=== PATIENT | male | born 1935 | race Caucasian/White ===

== ENCOUNTER 2019-05-23 11:07 | Emergency (ER) | payer OTHER ==
[~2019-05-23] VITALS: Ht 188 cm; Wt 88.5 kg
[~2019-05-23 11:07] MED LIST: ASA81 MG PO; CARDURA2 MG PO; CARVEDILOL3.125 MG PO; FAMOTIDINE20 MG PO; FLOMAX0.4 MG PO; GABAPENTIN100 MG PO; LORTAB PO; MULTI-VITAMIN1 EACH PO; OXYBUTYNIN CHLOR5 MG PO; TAMSULOSIN HCL0.4 MG PO; VITAMIN B-121000 MC3 PO; Z PACERONE PO; Z SULFASALAZINE PO; Z.0.CARDURA8 MG PO; Z.0.FOLIC ACID1 MG PO; Z.0.LIPITOR20 MG PO; Z.0.LISINOPRIL20 MG PO; Z.0.PLAVIX75 MG PO; Z.0.SYNTHROID100 MCG PO; [UNRECOGNIZED DRUG - OTHER] PO
[2019-05-23] MEDS ORDERED: MORPHINE SULFATE 2 MG/ML SYR 1ML IV STA (11:12)
[2019-05-23] MEDS ORDERED: ONDANSETRON HCL INJ 2MG/ML 2ML 2 MG/ML VIAL IV STA (11:12)
[2019-05-23 11:35] LABS: BASOPHILS % 0.1 % (0.0-1.0); EOSINOPHILS # (AUTO) 0.1 (0.0-0.4); EOSINOPHILS % 0.8 % (0.0-6.0); HEMATOCRIT 46.3 % (38.2-49.6); HEMOGLOBIN 14.1 g/dL (14.0-18.0); LYMPHOCYTES % 12.2 % (18.0-39.1); MEAN CORPUSCULAR HEMOGLOBIN 28.5 pg (28-32); MEAN CORPUSCULAR HGB CONC 30.5 g/dL (31-35); MEAN CORPUSCULAR VOLUME 93.7 fL (81-99); MONOCYTES % 11.3 % (4.4-11.3); NEUTROPHILS # (AUTO) 6.3 (2.1-6.9); NEUTROPHILS % 75.4 % (38.7-80.0); PLATELET COUNT 155 x10e3/uL (140-360); RED BLOOD COUNT 4.94 x10e6/uL (4.3-5.7); RED CELL DISTRIBUTION WIDTH 19.9 % (11.7-14.4)
--- NOTE | 2019-05-23 12:29 | Diagnostic Imaging Report ---
EXAM: WRIST COMPLETE LEFT DATE: 05/23/2019 11:12 AM INDICATION: Fall COMPARISON: None IMPRESSION: Bony mineralization is diffusely decreased limiting evaluation. No obvious acute fracture or dislocation is appreciated. There are prominent calcifications within the radiocarpal and ulnocarpal joint. No radiopaque foreign body is appreciated. Signed by: Dr. Justen Rendon MD on 05/23/2019 12:26 PM
[2019-05-23 13:23] LABS: ALANINE AMINOTRANSFERASE 15 IU/L (0-55); ALBUMIN 2.8 g/dL (3.5-5.0); ALBUMIN/GLOBULIN RATIO 0.8 (0.8-2.0); ALKALINE PHOSPHATASE 135 IU/L (40-150); ANION GAP 14.6 mmol/L (8-16); BLOOD UREA NITROGEN 12 mg/dL (7-26); BUN/CREATININE RATIO 12 (6-25); CALCIUM 8.3 mg/dL (8.4-10.2); CARBON DIOXIDE 25 mmol/L (22-29); CHLORIDE 101 mmol/L (98-107); CREATININE, SERUM 0.99 mg/dL (0.72-1.25); EST GLOMERULAR FILTRATION RATE > 60 ML/MIN (60-); GLUCOSE 75 mg/dL (74-118); POTASSIUM 4.6 mmol/L (3.5-5.1); SODIUM 136 mmol/L (136-145)
[2019-05-23] MEDS ORDERED: INDOMETHACIN 25 MG CAP PO SCH (13:30)
--- OUTSIDE RECORDS SUMMARY | 2019-06-01 10:56 | XMS REPORT ---
Author Author [facility] Address Unknown Phone Unavailable Care Team Providers Care Data Communications Engineer Name Role Phone RODARTECECI Unavailable Unavailable Problems This patient has no known problems. Allergies, Adverse Reactions, Alerts This patient has no known allergies or adverse reactions. Medications This patient has no known medications. Encounters Start Date/Time End Date/Time Encounter Type Admission Type Attending [facility] Care Facility Care Department Encounter ID 2019-02-19 08:16:00 Inpatient [id number] 2019-05-24 17:27:00 2019-05-24 13:01:00 Inpatient E [facility] [id number] 2019-03-14 12:14:00 2019-03-14 08:21:00 Inpatient E [facility] MED [id number] 2019-03-10 10:13:00 2019-03-10 10:13:00 Emergency E [facility] [id number] Results Test Description Test Time Test Comments Text Results Atomic Results Result Comments WRIST COMPLETE LEFT 2019-05-23 12:22:00 [place] [address] Patient Name: GRETTA BYRD MR #: [id number] : 1935 Age/Sex: 83/M Req #: [id number] Adm Physician: Ordered by: CECI AZVALA SHERIFF Report #: [id number] Location: ER Room/Bed: Procedure: [id number] DX/WRIST COMPLETE LEFT Exam Date: 05/23/19 Exam Time: 1130 REPORT STATUS: Signed EXAM: WRIST COMPLETE LEFT DATE: 05/23/2019 11:12 AM INDICATION: Fall COMPARISON: None IMPRESSION: Bony mineralization is diffusely decreased limiting evaluation. No obvious acute fracture or dislocation is appreciated. There are prominent calcifications within the radiocarpal and ulnocarpal joint. No radiopaque foreign body is appreciated. Signed by: Dr. Justen Rendon MD on 05/23/2019 12:26 PM Dictated By: JUSTEN RENDON MD 1226 Transcribed By: TONI on 05/23/19 1226 COPY TO: CECI ZAVALA NP
== END 2019-05-23 15:37 | disposition home or self-care (01) ==
LOC: ER 11:07
DX: M25.532 Pain in left wrist (principal); S63.502A Unspecified sprain of left wrist, initial encounter; Z85.46 Personal history of malignant neoplasm of prostate
CPT/HCPCS: 36415; 73110; 80053; 84550; 85025; 85651; 99284; J2270; J2405

== ENCOUNTER 2019-08-14 06:23 | Inpatient (IN) | payer OTHER ==
[~2019-08-14] VITALS: Ht 188 cm; Wt 88.5 kg
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
--- OUTSIDE RECORDS SUMMARY | 2019-08-14 06:29 | XMS REPORT | Summary of Care ---
Author Author YESI Joe, YAW Vasquez Unknown Address Unknown Phone Unavailable Care Team Providers Care Assembler Billiard Table Name Role Phone MONTSERRAT De La Cruz, TAMAR Unavailable Unavailable MAGALYS Joe, JACOB Unavailable Unavailable BALA Joe, BING Unavailable Unavailable YESI Joe, YAW Unavailable Unavailable HEMANT Bello, DAISY Unavailable Unavailable BALA SNOW [place], BING GLYNN Unavailable Unavailable KESHIA SNIDER [place], FESTUS VICTOR Unavailable Unavailable GUANACO SNOW [place], KRIS Contreras Unavailable Unavailable Yesi SNOW, Yaw Unavailable Unavailable DESTINI VAZQUEZ [place], LUCY Unavailable Unavailable MONTSERRAT WARNER, TAMAR Unavailable Unavailable [...] Dates Details Carvedilol 6.25 MG Oral Tablet Take 1 tablet by mouth twice a day Quantity: 180 YAW KAY M.D. * Start : 06-Jul-2012 Active Atorvastatin Calcium 20 MG Oral Tablet TAKE 1 TABLET BY MOUTH AT BEDTIME * Quantity: 90 Refills: 1 YESI Joe, YAW * Start : 14-Jul-2012 Active Folic [...] office visit * Quantity: 30 Refills: 0 JACOB DOWELL M.D. * Start : 17-Oct-2013 Active Nitroglycerin 0.4 MG Sublingual Tablet Sublingual PLEASE SEE ATTACHED FOR DETAILED DIRECTIONS * Quantity: 25 Refills: 0 YAW KAY M.D. * Start : 25-Sep-2018 Active Famotidine 20 [...] EVERY DAY * Quantity: 90 Refills: 1 YAW KAY M.D. * Start : 25-May-2017 Active Vicks Sinex [...] EVERY DAY * Quantity: 90 Refills: 3 YAW KAY M.D. * Start : 11-Dec-2018 Active PreserVision AREDS Oral Capsule TAKE DIRECTED. * Refills: 0 * Start : 17-Apr-2019 Active Iron 325 (65 Fe) MG Oral Tablet TAKE 1 TABLET DAILY DIRECTED. * Refills: 0 * Start : 17-Apr-2019 Active Lisinopril 2.5 MG Oral Tablet TAKE 1 TABLET BY MOUTH DAILY * Quantity: 90 Refills: 3 YAW KAY M.D. * Start : 25-Apr-2019 Active Doxycycline Monohydrate [...] and quantity * Quantity: 1 Refills: 0 MARIANO P.A., TAMAR * Start : 22-Jun-2019 Active [...] Z87.19) Status: Resolved Procedures Procedure Dates Details History of Hernia Repair Completed History of Lower Back Surgery Completed History of Ankle Surgery Completed History of Cath Placement Of Stent 1 Completed Immunization Name Dates Details Tdap on: 24-Jan-2008 Influenza on: 09-Apr-2008 H1N1 Influenza Inj on: 18-Apr-2009 Pneumo on: 25-Mar-2010 Fluzone INJ Lot #: [id number] on: 13-Feb-2013 Fluarix Quadrivalent 0.5 ML SUSP Lot #: [id number] on: 05-Mar-2014 Fluzone Quadrivalent 0.5 ML Intramuscular Suspension Lot #: [id number] on: 05-Mar-2015 Prevnar 13 Intramuscular Suspension Lot #: [id number] on: 05-Mar-2015 Fluzone High-Dose SUSP Lot #: [id number] on: 26-Mar-2016 Fluzone Quadrivalent 0.5 ML Intramuscular Suspension Prefilled Syringe Lot #: [id number] on: 28-Feb-2017 Fluzone High-Dose 0.5 ML Intramuscular Suspension Prefilled Syringe Lot #: [id number] on: 20-Feb-2018 Fluzone High-Dose 0.5 ML Intramuscular Suspension Prefilled Syringe Lot #: [id number] on: 23-Apr-2019 Prevnar 13 Intramuscular Suspension Lot #: [id number] on: 23-Apr-2019 Family History Name Dates Details Family history of Denial Of Any Significant Medical History Comments: Family History Status: Active Name Dates Details No pertinent family history (V49.89, Z78.9) Status: Active Social History Name Dates Details - Status: Name Dates Details Former smoker Vital Signs Date Test Result Details No Known Vitals to report Results Date Description Value Details [id number] [U] XRAY FEMUR 2 VWS RIGHT 11406 XR FEMUR 2 VWS RIGHT Images acquired, not reported on this accession number. Plan of Care Name Dates Details Planned Observations Planned Goals not documented Planned Encounters Appointment; BARBARA HENDERSON M.D. On: 15-Aug-2019 11:30 Appointment; FADYORE-MS, ECHO On: 27-Nov-2019 8:00 Appointment; FADYORE-MS, NUCLEAR On: 27-Nov-2019 8:30 Appointment; YAW KAY M.D. On: 17-Dec-2019 10:40 Interventions Provided Medication Changes* Carvedilol 6.25 MG Oral Tablet - Renew Instructions Name Dates Details Instructions not documented Encounters Appointment; TAMAR MARIANO PHan Encounter Diagnosis: Problem not documented On: 15-Aug-2017 [...] documented On: 12-Dec-2017 11:20 Appointment; TAMAR MARIANO P.A. Encounter Diagnosis: Problem not documented On: 14-Feb-2018 9:00 Appointment; BING MCKENNA M.D. Encounter Diagnosis: Problem not documented On: 20-Feb-2018 8:30 Appointment; LUCY GEORGES D.O. Encounter Diagnosis: Problem not documented On: 07-Jun-2018 13:45 Appointment; TAMAR MARIANO PYajairaAYajaira Encounter Diagnosis: Problem not documented On: 23-Aug-2018 7:30 Appointment; TAMAR MARIANO P.A. Encounter Diagnosis: Problem not documented On: 28-Aug-2018 [...] Diagnosis: Problem not documented On: 21-Jun-2019 10:00 Appointment; BARBARA HENDERSON M.D. Encounter Diagnosis: Problem not documented On: 04-Jul-2019 11:30
--- OUTSIDE RECORDS SUMMARY | 2019-08-14 06:29 | XMS REPORT | Summary of Care ---
Author Author TAMAR GARCIA Organization Unknown Address Unknown Phone Unavailable Care Team Providers Care Mouse Breeder Name Role Phone TAMAR GARCIA Unavailable Unavailable MAGALYS Joe, JACOB Unavailable Unavailable BALA Joe, BING Unavailable Unavailable YESI Joe, YAW Unavailable Unavailable BALA SNOW [place], BING GLYNN Unavailable Unavailable KESHIA SNIDER [place], FESTUS VICTOR Unavailable Unavailable GUANACO SNOW [place], KRIS Contreras Unavailable Unavailable Yesi SNOW, Yaw Unavailable Unavailable DESTINI VAZQUEZ [place], LUCY Unavailable Unavailable MONTSERRAT WARNER, TAMAR Unavailable [...] by mouth twice a day Quantity: 180 YESI Joe, YAW * Start : 06-Jul-2012 Active Atorvastatin [...] Joe, YAW * Start : 25-Apr-2019 Active traZODone HCl - 50 MG Oral [...] Pneumo on: 25-Mar-2010 Fluzone INJ Lot #: [id number] on: 13-Feb-2013 Fluarix Quadrivalent 0.5 ML SUSP Lot #: [id number] on: 05-Mar-2014 Fluzone Quadrivalent 0.5 ML Intramuscular Suspension Lot #: [id number] on: 05-Mar-2015 Prevnar 13 Intramuscular Suspension Lot #: [id number] on: 05-Mar-2015 Fluzone High-Dose SUSP Lot #: [id number] on: 26-Mar-2016 Fluzone Quadrivalent 0.5 ML Intramuscular Suspension Prefilled Syringe Lot #: [id number] on: 28-Feb-2017 Fluzone High-Dose 0.5 ML Intramuscular Suspension Prefilled Syringe Lot #: [id number] on: 20-Feb-2018 Fluzone High-Dose 0.5 ML Intramuscular Suspension Prefilled Syringe Lot #: [id number] on: 23-Apr-2019 Prevnar 13 Intramuscular Suspension Lot #: [id number] on: 23-Apr-2019 Family History Name Dates Details Family history of Denial Of Any Significant Medical History Comments: Family History Status: Active Name Dates Details No pertinent family history (V49.89, Z78.9) Status: Active Social History Name Dates Details - Status: Name Dates Details Former smoker Vital Signs Date Test Result Details No Known Vitals to report Results Date Description Value Details [id number] [U] XRAY FEMUR 2 VWS RIGHT 19642 XR FEMUR 2 VWS RIGHT Images acquired, not reported on this accession number. Plan of Care Name Dates Details Planned Observations Planned Goals not documented Planned Encounters Appointment; BARBARA HENDERSON M.D. On: 15-Aug-2019 11:30 Appointment; ODALYS ECHO On: 27-Nov-2019 8:00 Appointment; JULIO-MS NUCLEAR On: 27-Nov-2019 8:30 Appointment; YAW KAY M.D. On: 17-Dec-2019 10:40 Instructions Name Dates Details Instructions not documented Encounters Appointment; TAMAR MARIANO P.A. Encounter Diagnosis: Problem not documented On: 15-Aug-2017 8:15 Appointment; DODIE JACOBS M.D. Encounter Diagnosis: Problem not documented On: 19-Aug-2017 13:15 Appointment; DODIE JACOBS M.D. Encounter Diagnosis: Problem not documented On: 23-Aug-2017 15:00 Appointment; DODIE JACOBS M.D. Encounter Diagnosis: Problem not documented On: 06-Sep-2017 14:30 Appointment; TAMAR MARIANO PHan Encounter Diagnosis: Problem not documented On: 15-Nov-2017 8:45 Appointment; YAW KAY M.D. Encounter Diagnosis: Problem not documented On: 12-Dec-2017 11:20 Appointment; TAMAR MARIANO P.A. Encounter Diagnosis: Problem not documented On: 14-Feb-2018 9:00 Appointment; BING MCKENNA M.D. Encounter Diagnosis: Problem not documented On: 20-Feb-2018 8:30 Appointment; LUCY GEORGES D.O. Encounter Diagnosis: Problem not documented On: 07-Jun-2018 13:45 Appointment; TAMAR MARIANO P.A. Encounter Diagnosis: Problem not documented On: 23-Aug-2018 [...]
--- OUTSIDE RECORDS SUMMARY | 2019-08-14 06:29 | XMS REPORT | Summary of Care ---
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, M48.062) Status: Active Gait, antalgic (781.2, R26.89) Status: Active Osteoarthritis of knee (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 * Quantity: 180 Refills: 1 BALA Joe BING * Start : 24-May-2016 Active Testosterone Cypionate [...] P.A., TAMAR * Start : 22-Jun-2019 Active Indomethacin ER 75 MG Oral Capsule Extended Release TAKE ONE CAPSULE BY MOUTH EVERY DAY * Quantity: 30 Refills: 0 MARIANO P.A., TAMAR * Start : 25-Jul-2019 Active Allergies and Adverse Reactions Name Dates [...] Pneumo on: 25-Mar-2010 Fluzone INJ Lot #: [id number] on: 13-Feb-2013 Fluarix Quadrivalent 0.5 ML SUSP Lot #: [id number] on: 05-Mar-2014 Fluzone Quadrivalent 0.5 ML Intramuscular Suspension Lot #: [id number] on: 05-Mar-2015 Prevnar 13 Intramuscular Suspension Lot #: [id number] on: 05-Mar-2015 Fluzone High-Dose SUSP Lot #: [id number] on: 26-Mar-2016 Fluzone Quadrivalent 0.5 ML Intramuscular Suspension Prefilled Syringe Lot #: [id number] on: 28-Feb-2017 Fluzone High-Dose 0.5 ML Intramuscular Suspension Prefilled Syringe Lot #: [id number] on: 20-Feb-2018 Fluzone High-Dose 0.5 ML Intramuscular Suspension Prefilled Syringe Lot #: [id number] on: 23-Apr-2019 Prevnar 13 Intramuscular Suspension Lot #: [id number] on: 23-Apr-2019 Family History Name Dates Details Family history of Denial Of Any Significant Medical History Comments: Family History Status: Active Name Dates Details No pertinent family history (V49.89, Z78.9) Status: Active Social History Name Dates Details - Status: Name Dates Details Former smoker Vital Signs Date Test Result Details No Known Vitals to report Results Date Description Value Details [id number] [U] XRAY FEMUR 2 VWS RIGHT 62597 XR FEMUR 2 VWS RIGHT Images acquired, not reported on this accession number. Plan of Care Name Dates Details Planned Observations Planned Goals not documented Planned Encounters Appointment; BARBARA HENDERSON M.D. On: 15-Aug-2019 11:30 Appointment; JULIO-, ECHO On: 27-Nov-2019 8:00 Appointment; JULIO-, NUCLEAR On: 27-Nov-2019 8:30 Appointment; YAW KAY M.D. On: 17-Dec-2019 10:40 Interventions Provided Medication Changes* Indomethacin ER 75 MG Oral Capsule Extended Release - Start Instructions Name Dates Details Instructions not documented Encounters Appointment; TAMAR MARIANO P.A. Encounter Diagnosis: Problem not documented On: 15-Aug-2017 8:15 Appointment; DODIE JACOBS M.D. Encounter Diagnosis: Problem not documented On: 19-Aug-2017 13:15 Appointment; DODIE JACOBS M.D. Encounter Diagnosis: Problem not documented On: 23-Aug-2017 15:00 Appointment; DODIE JACOBS M.D. Encounter Diagnosis: Problem not documented On: 06-Sep-2017 14:30 Appointment; TAMAR MARIANO P.A. Encounter Diagnosis: Problem not documented On: 15-Nov-2017 [...] documented On: 23-Aug-2018 7:30 Appointment; TAMAR MARIANO P.AYajaira Encounter Diagnosis: Problem [...]
--- OUTSIDE RECORDS SUMMARY | 2019-08-14 06:29 | XMS REPORT | Summary of Care ---
Author Author YESI Joe, YAW Vasquez Unknown Address Unknown Phone Unavailable Care Team Providers Care Photogrammetric Compilation Specialist Name Role Phone MONTSERRAT De La Cruz, TAMAR Unavailable Unavailable MAGALYS Joe, JACOB Unavailable Unavailable BALA Joe, BING Unavailable Unavailable YESI Joe, YAW Unavailable Unavailable Carmine Cruz, Amber Unavailable Unavailable BALA SNOW MD, BING GLYNN Unavailable Unavailable KESHIA SNIDER MD, FESTUS VICTOR Unavailable Unavailable GUANACO SNOW MD, KRIS Contreras Unavailable Unavailable Yesi SNOW, Yaw Unavailable Unavailable DESTINI VAZQUEZ MD, ALEJANDROJOHANN Unavailable Unavailable MONTSERRAT WARNER, TAMAR Unavailable [...] Pneumo on: 25-Mar-2010 Fluzone INJ Lot #: [id number] on: 13-Feb-2013 Fluarix Quadrivalent 0.5 ML SUSP Lot #: [id number] on: 05-Mar-2014 Fluzone Quadrivalent 0.5 ML Intramuscular Suspension Lot #: [id number] on: 05-Mar-2015 Prevnar 13 Intramuscular Suspension Lot #: [id number] on: 05-Mar-2015 Fluzone High-Dose SUSP Lot #: [id number] on: 26-Mar-2016 Fluzone Quadrivalent 0.5 ML Intramuscular Suspension Prefilled Syringe Lot #: [id number] on: 28-Feb-2017 Fluzone High-Dose 0.5 ML Intramuscular Suspension Prefilled Syringe Lot #: [id number] on: 20-Feb-2018 Fluzone High-Dose 0.5 ML Intramuscular Suspension Prefilled Syringe Lot #: [id number] on: 23-Apr-2019 Prevnar 13 Intramuscular Suspension Lot #: [id number] on: 23-Apr-2019 Family History Name Dates Details Family history of Denial Of Any Significant Medical History Comments: Family History Status: Active Name Dates Details No pertinent family history (V49.89, Z78.9) Status: Active Social History Name Dates Details - Status: Name Dates Details Former smoker Vital Signs Date Test Result Details No Known Vitals to report Results Date Description Value Details [id number] [U] XRAY FEMUR 2 VWS RIGHT 80621 XR FEMUR 2 VWS RIGHT Images acquired, not reported on this accession number. Plan of Care Name Dates Details Planned Observations Planned Goals not documented Planned Encounters Appointment; BARBARA HENDERSON M.D. On: 15-Aug-2019 11:30 Appointment; JULIO-, ECHO On: 27-Nov-2019 8:00 Appointment; JULIO-MS, NUCLEAR On: 27-Nov-2019 8:30 Appointment; YAW KAY M.D. On: 17-Dec-2019 10:40 Interventions Provided Medication Changes* Atorvastatin Calcium 20 MG Oral Tablet - Renew Instructions Name [...]
--- OUTSIDE RECORDS SUMMARY | 2019-08-14 06:29 | XMS REPORT | Summary of Care ---
Author Author Rafaela Hughes, Shari Organization Unknown Address [facility] Phone Unavailable Care Team Providers Care Supervisor Knitting Name Role Phone MONTSERRAT De La Cruz, TAMAR Unavailable Unavailable MAGALYS Joe, JACOB Unavailable Unavailable BALA Joe, BING Unavailable Unavailable Rafaela Hughes, Shari Unavailable Unavailable YESI Joe, YAW Unavailable Unavailable HEMANT Bello, DAISY Unavailable Unavailable BALA SNOW [place], BING GLYNN Unavailable Unavailable KESHIA PA [place], FESTUS VICTOR Unavailable Unavailable GUANACO SNOW [place], KRIS Contreras Unavailable Unavailable Yesi SNOW, Yaw Unavailable Unavailable YEH DO [place], ALEJANDROJOHANN Unavailable Unavailable MONTSERRAT WARNER, TAMAR Unavailable [...] EVERY DAY * Quantity: 90 Refills: 1 YEIS Joe, YAW * Start : 25-May-2017 Active [...] Pneumo on: 25-Mar-2010 Fluzone INJ Lot #: [id number] on: 13-Feb-2013 Fluarix Quadrivalent 0.5 ML SUSP Lot #: [id number] on: 05-Mar-2014 Fluzone Quadrivalent 0.5 ML Intramuscular Suspension Lot #: [id number] on: 05-Mar-2015 Prevnar 13 Intramuscular Suspension Lot #: [id number] on: 05-Mar-2015 Fluzone High-Dose SUSP Lot #: [id number] on: 26-Mar-2016 Fluzone Quadrivalent 0.5 ML Intramuscular Suspension Prefilled Syringe Lot #: [id number] on: 28-Feb-2017 Fluzone High-Dose 0.5 ML Intramuscular Suspension Prefilled Syringe Lot #: [id number] on: 20-Feb-2018 Fluzone High-Dose 0.5 ML Intramuscular Suspension Prefilled Syringe Lot #: [id number] on: 23-Apr-2019 Prevnar 13 Intramuscular Suspension Lot #: [id number] on: 23-Apr-2019 Family History Name Dates Details Family history of Denial Of Any Significant Medical History Comments: Family History Status: Active Name Dates Details No pertinent family history (V49.89, Z78.9) Status: Active Social History Name Dates Details - Status: Name Dates Details Former smoker Vital Signs Date Test Result Details :59 BP Systolic 123 mm[Hg] Status: Comments: Location: E; Position: Sitting BP Diastolic 63 mm[Hg] Status: Comments: Location: [facility] [place]; Position: Sitting Height 70 in Status: Temperature 97.6 f Status: Comments: Method: Temporal Heart Rate 46 /min Status: Respiration Rate 16 /min Status: Results Date Description Value Details [id number] [U] XRAY FEMUR 2 VWS RIGHT 55888 XR FEMUR 2 VWS RIGHT Images acquired, not reported on this accession number. Plan of Care Name Dates Details Planned Observations Planned Goals not documented Planned Encounters Appointment; BARBARA HENDERSON M.D. On: 15-Aug-2019 11:30 Appointment; JULIO-MS, ECHO On: 27-Nov-2019 8:00 Appointment; [facility], [facility] On: 27-Nov-2019 8:30 Appointment; YAW KAY [...] documented On: 12-Dec-2017 11:20 Appointment; TAMAR MARIANO P.AYajaira Encounter Diagnosis: Problem not documented On: 14-Feb-2018 9:00 Appointment; BING MCKENNA M.D. Encounter Diagnosis: Problem not documented On: 20-Feb-2018 8:30 Appointment; LUCY GEORGES D.O. Encounter Diagnosis: Problem not documented On: 07-Jun-2018 13:45 Appointment; TAMAR MARIANO P.A. Encounter Diagnosis: Problem not documented On: 23-Aug-2018 7:30 Appointment; TAMAR MARIANO PHan Encounter Diagnosis: Problem not documented On: 28-Aug-2018 8:00 Appointment; AIDE PASTRANA P.A. Encounter Diagnosis: Problem not documented On: 20-Oct-2018 13:00 Appointment; FESTUS SCHMITT P.A. Encounter Diagnosis: Problem not documented On: 28-Nov-2018 12:00 Appointment; YAW KAY M.D. Encounter Diagnosis: Problem not documented On: 11-Dec-2018 10:20 Appointment; KRIS BLANC M.D. Encounter Diagnosis: Problem not documented On: 28-Dec-2018 10:00 Appointment; TAMAR MARIANO PYajairaAYajaira Encounter Diagnosis: Problem not documented On: 08-Jan-2019 [...]
--- OUTSIDE RECORDS SUMMARY | 2019-08-14 06:30 | XMS REPORT | Summary of Care ---
Author Author TAMAR GARCIA Organization Unknown Address Unknown Phone Unavailable Care Team Providers Care Rf Design Engineer Name Role Phone TAMAR GARCIA Unavailable Unavailable MAGALYS Joe, JACOB Unavailable Unavailable BALA Joe, BING Unavailable Unavailable YESI Joe, YAW Unavailable Unavailable BALA SNOW [place], BING GLYNN Unavailable Unavailable KESHIA SNIDER [place], FESTUS VICTOR Unavailable Unavailable GUANACO SNOW [place], KRIS Contreras Unavailable Unavailable Yesi SNOW, Yaw [...] 3 YESI Joe, YAW * Start : 25-May-2017 [...] P.A., TAMAR * Start : 22-Jun-2019 Active Naproxen 500 MG Oral Tablet Please specify directions, refills and quantity * Quantity: 1 Refills: 0 MARIANO P.A., TAMAR * Start : 26-Jul-2019 Active Allergies and Adverse Reactions Name Dates [...] Pneumo on: 25-Mar-2010 Fluzone INJ Lot #: [id number] on: 13-Feb-2013 Fluarix Quadrivalent 0.5 ML SUSP Lot #: [id number] on: 05-Mar-2014 Fluzone Quadrivalent 0.5 ML Intramuscular Suspension Lot #: [id number] on: 05-Mar-2015 Prevnar 13 Intramuscular Suspension Lot #: [id number] on: 05-Mar-2015 Fluzone High-Dose SUSP Lot #: [id number] on: 26-Mar-2016 Fluzone Quadrivalent 0.5 ML Intramuscular Suspension Prefilled Syringe Lot #: [id number] on: 28-Feb-2017 Fluzone High-Dose 0.5 ML Intramuscular Suspension Prefilled Syringe Lot #: [id number] on: 20-Feb-2018 Fluzone High-Dose 0.5 ML Intramuscular Suspension Prefilled Syringe Lot #: [id number] on: 23-Apr-2019 Prevnar 13 Intramuscular Suspension Lot #: [id number] on: 23-Apr-2019 Family History Name Dates Details Family history of Denial Of Any Significant Medical History Comments: Family History Status: Active Name Dates Details No pertinent family history (V49.89, Z78.9) Status: Active Social History Name Dates Details - Status: Name Dates Details Former smoker Vital Signs Date Test Result Details No Known Vitals to report Results Date Description Value Details [id number] [U] XRAY FEMUR 2 VWS RIGHT [id number] XR FEMUR 2 VWS RIGHT Images acquired, not reported on this accession number. Plan of Care Name Dates Details Planned Observations Planned Goals not documented Planned Encounters Appointment; BARBARA HEDNERSON M.D. On: 15-Aug-2019 11:30 Appointment; JULIO-MS, ECHO On: 27-Nov-2019 8:00 Appointment; [facility], NUCLEAR On: 27-Nov-2019 8:30 Appointment; YAW KAY M.D. On: 17-Dec-2019 10:40 Interventions Provided Medication Changes* Naproxen 500 MG Oral Tablet - Start Instructions Name Dates Details Instructions [...]
--- OUTSIDE RECORDS SUMMARY | 2019-08-14 06:30 | XMS REPORT | Summary of Care ---
Author Author YESI Joe, YAW Vasquez Unknown Address Unknown Phone Unavailable Care Team Providers Care Dictaphone Typist Name Role Phone MONTSERRAT De La Cruz, TAMAR Unavailable Unavailable MAGALYS Joe, JACOB Unavailable Unavailable BALA Joe, BING Unavailable Unavailable YESI Joe, YAW Unavailable Unavailable Carmine Cruz, Amber Unavailable Unavailable BALA SNOW [place], BING GLYNN Unavailable Unavailable KESHIA SNIDER [place], FESTUS VICTOR Unavailable Unavailable GUANACO SNOW [place], KRIS Contreras Unavailable Unavailable Yesi SNOW, Yaw Unavailable Unavailable DESTINI VAZQUEZ [place], ALEJANDROJOHANN Unavailable Unavailable MONTSERRAT WARNER, TAMAR Unavailable [...] 3 YAW KAY M.D. * Start : 25-May-2017 [...] KAY M.D. * Start : 25-Apr-2019 Active traZODone HCl [...] Pneumo on: 25-Mar-2010 Fluzone INJ Lot #: [id number] on: 13-Feb-2013 Fluarix Quadrivalent 0.5 ML SUSP Lot #: [id number] on: 05-Mar-2014 Fluzone Quadrivalent 0.5 ML Intramuscular Suspension Lot #: [id number] on: 05-Mar-2015 Prevnar 13 Intramuscular Suspension Lot #: [id number] on: 05-Mar-2015 Fluzone High-Dose SUSP Lot #: [id number] on: 26-Mar-2016 Fluzone Quadrivalent 0.5 ML Intramuscular Suspension Prefilled Syringe Lot #: [id number] on: 28-Feb-2017 Fluzone High-Dose 0.5 ML Intramuscular Suspension Prefilled Syringe Lot #: [id number] on: 20-Feb-2018 Fluzone High-Dose 0.5 ML Intramuscular Suspension Prefilled Syringe Lot #: [id number] on: 23-Apr-2019 Prevnar 13 Intramuscular Suspension Lot #: [id number] on: 23-Apr-2019 Family History Name Dates Details Family history of Denial Of Any Significant Medical History Comments: Family History Status: Active Name Dates Details No pertinent family history (V49.89, Z78.9) Status: Active Social History Name Dates Details - Status: Name Dates Details Former smoker Vital Signs Date Test Result Details No Known Vitals to report Results Date Description Value Details [id number] [U] XRAY FEMUR 2 VWS RIGHT [id number] XR FEMUR 2 VWS RIGHT Images acquired, not reported on this accession number. Plan of Care Name Dates Details Planned Observations Planned Goals not documented Planned Encounters Appointment; BARBARA HENDERSON M.D. On: 15-Aug-2019 11:30 Appointment; ODALYS, ECHO On: 27-Nov-2019 8:00 Appointment; ODALYS, NUCLEAR On: 27-Nov-2019 8:30 Appointment; YAW KAY M.D. On: 17-Dec-2019 10:40 Interventions Provided Medication Changes* Aspirin EC 325 MG Oral Tablet Delayed Release - Renew Instructions Name Dates Details Instructions [...] Problem not documented On: 20-Oct-2018 13:00 Appointment; FSETUS SCHMITT P.A. Encounter Diagnosis: Problem not documented [...]
--- OUTSIDE RECORDS SUMMARY | 2019-08-14 06:30 | XMS REPORT | Summary of Care ---
Author Author MONTSERRAT De La Cruz, TAMAR Organization Unknown Address Unknown Phone Unavailable Care Team Providers Care Electronics Teacher Name Role Phone SANTIAGO Joe, BARBARA Unavailable Unavailable MONTSERRAT De La Cruz, TAMAR Unavailable Unavailable MAGALYS Joe, JACOB Unavailable Unavailable BALA Joe, BING Unavailable Unavailable YESI Joe, YAW Unavailable Unavailable BALA SNOW [place], BING GLYNN Unavailable Unavailable KESHIA PA [place], FESTUS VICTOR Unavailable Unavailable GUANACO SNOW [place], KRIS Contreras Unavailable Unavailable Yesi SNOW, Yaw Unavailable Unavailable DESTINI VAZQUEZ [place], LUCY Unavailable Unavailable MONTSERRAT WARNER, TAMAR Unavailable [...] Pneumo on: 25-Mar-2010 Fluzone INJ Lot #: [id number] on: 13-Feb-2013 Fluarix Quadrivalent 0.5 ML SUSP Lot #: [id number] on: 05-Mar-2014 Fluzone Quadrivalent 0.5 ML Intramuscular Suspension Lot #: [id number] on: 05-Mar-2015 Prevnar 13 Intramuscular Suspension Lot #: [id number] on: 05-Mar-2015 Fluzone High-Dose SUSP Lot #: [id number] on: 26-Mar-2016 Fluzone Quadrivalent 0.5 ML Intramuscular Suspension Prefilled Syringe Lot #: [id number] on: 28-Feb-2017 Fluzone High-Dose 0.5 ML Intramuscular Suspension Prefilled Syringe Lot #: [id number] on: 20-Feb-2018 Fluzone High-Dose 0.5 ML Intramuscular Suspension Prefilled Syringe Lot #: [id number] on: 23-Apr-2019 Prevnar 13 Intramuscular Suspension Lot #: [id number] on: 23-Apr-2019 Family History Name Dates Details Family history of Denial Of Any Significant Medical History Comments: Family History Status: Active Name Dates Details No pertinent family history (V49.89, Z78.9) Status: Active Social History Name Dates Details - Status: Name Dates Details Ex-smoker (finding) Vital Signs Date Test Result Details No Known Vitals to report Results Date Description Value Details [id number] [U] XRAY FEMUR 2 VWS RIGHT [id number] XR FEMUR 2 VWS RIGHT Images acquired, not reported on this accession number. Plan of Care Name Dates Details Planned Observations Planned Goals not documented Planned Encounters Appointment; BARBARA HENDERSON M.D. On: 15-Aug-2019 11:30 Appointment; ODALYS ECHO On: 27-Nov-2019 8:00 Appointment; ODALYS NUCLEAR On: 27-Nov-2019 8:30 Appointment; YAW KAY M.D. On: 17-Dec-2019 10:40 Interventions Provided Labs/Procedures/Imaging* [U] XRAY FEMUR 2 VWS RIGHT [id number]; Done: 04 Jul 2019 * [U] XRAY FEMUR 2 VWS RIGHT [id number]; Done: 08 Jun 2019 Instructions Name Dates Details Instructions [...] documented On: 25-Apr-2019 14:30 Appointment; DAISY MARCOS APRN Encounter Diagnosis: Problem not documented On: 12-May-2019 7:30 Appointment; BARBARA HENDERSON M.D. Encounter Diagnosis: Problem not documented On: 25-May-2019 13:00 Appointment; TAMAR MARIANO P.A. Encounter Diagnosis: Problem not documented On: 31-May-2019 10:00 Appointment; BARBARA HENDERSON M.D. Encounter Diagnosis: Problem not documented On: 08-Jun-2019 11:00
--- OUTSIDE RECORDS SUMMARY | 2019-08-14 06:30 | XMS REPORT | Summary of Care ---
Author Author Carmine Cruz, Amber Vasquez Unknown Address Unknown Phone Unavailable Care Team Providers Care Oil Drilling Engineer Name Role Phone MONTSERRAT De La Cruz, TAMAR Unavailable Unavailable MAGALYS Joe, JACOB Unavailable Unavailable BALA Joe, BING Unavailable Unavailable YESI Joe, YAW Unavailable Unavailable Carmine Cruz, Amber Unavailable Unavailable BALA SNOW [place], BING GLYNN Unavailable Unavailable KESHIA SNIDER [place], FESTUS VICTOR Unavailable Unavailable GUANACO SNOW [place], KRIS Contreras Unavailable Unavailable Yesi SNOW, Yaw Unavailable Unavailable DESTINI VAZQUEZ [place], ALEJANDROJOHANN Unavailable Unavailable MONTSERRAT WARNER, TAMAR Unavailable [...] Pneumo on: 25-Mar-2010 Fluzone INJ Lot #: [id number] on: 13-Feb-2013 Fluarix Quadrivalent 0.5 ML SUSP Lot #: [id number] on: 05-Mar-2014 Fluzone Quadrivalent 0.5 ML Intramuscular Suspension Lot #: [id number] on: 05-Mar-2015 Prevnar 13 Intramuscular Suspension Lot #: [id number] on: 05-Mar-2015 Fluzone High-Dose SUSP Lot #: [id number] on: 26-Mar-2016 Fluzone Quadrivalent 0.5 ML Intramuscular Suspension Prefilled Syringe Lot #: [id number] on: 28-Feb-2017 Fluzone High-Dose 0.5 ML Intramuscular Suspension Prefilled Syringe Lot #: [id number] on: 20-Feb-2018 Fluzone High-Dose 0.5 ML Intramuscular Suspension Prefilled Syringe Lot #: [id number] on: 23-Apr-2019 Prevnar 13 Intramuscular Suspension Lot #: [id number] on: 23-Apr-2019 Family History Name Dates Details Family history of Denial Of Any Significant Medical History Comments: Family History Status: Active Name Dates Details No pertinent family history (V49.89, Z78.9) Status: Active Social History Name Dates Details - Status: Name Dates Details Former smoker Vital Signs Date Test Result Details No Known Vitals to report Results Date Description Value Details [id number] [U] XRAY FEMUR 2 VWS RIGHT [id number] XR FEMUR 2 VWS RIGHT Images acquired, not reported on this accession number. Plan of Care Name Dates Details Planned Observations Planned Goals not documented Planned Encounters Appointment; BARBARA HENDERSON M.D. On: 15-Aug-2019 11:30 Appointment; ODALYS, ECHO On: 27-Nov-2019 8:00 Appointment; JULIO-, NUCLEAR [...] Problem not documented On: 10-Mar-2019 9:30 Appointment; TAMRA MARIANO P.A. Encounter Diagnosis: Problem not documented On: 23-Apr-2019 13:30 Appointment; YAW KAY M.D. Encounter Diagnosis: Problem not documented On: 25-Apr-2019 8:40 Appointment; BLANC, KRIS, M.D. Encounter Diagnosis: Problem not documented On: [...]
--- OUTSIDE RECORDS SUMMARY | 2019-08-14 06:30 | XMS REPORT | Summary of Care ---
Author Author Lauren Mendez M.A. Unknown Address [facility] Phone Unavailable Care Team Providers Care Unit Nurse Name Role Phone MONTSERRAT De La Cruz, TAMAR Unavailable Unavailable MAGALYS Joe, JACOB Unavailable Unavailable BALA Joe, BING Unavailable Unavailable YESI Joe, YAW Unavailable Unavailable BALA SNOW [place], BING GLYNN Unavailable Unavailable KESHIA SNIDER [place], FESTUS VICTOR Unavailable Unavailable GUANACO SNOW [place], KRIS Contreras Unavailable Unavailable Yesi SNOW, Yaw [...] Pneumo on: 25-Mar-2010 Fluzone INJ Lot #: [id number] on: 13-Feb-2013 Fluarix Quadrivalent 0.5 ML SUSP Lot #: [id number] on: 05-Mar-2014 Fluzone Quadrivalent 0.5 ML Intramuscular Suspension Lot #: [id number] on: 05-Mar-2015 Prevnar 13 Intramuscular Suspension Lot #: [id number] on: 05-Mar-2015 Fluzone High-Dose SUSP Lot #: [id number] on: 26-Mar-2016 Fluzone Quadrivalent 0.5 ML Intramuscular Suspension Prefilled Syringe Lot #: [id number] on: 28-Feb-2017 Fluzone High-Dose 0.5 ML Intramuscular Suspension Prefilled Syringe Lot #: [id number] on: 20-Feb-2018 Fluzone High-Dose 0.5 ML Intramuscular Suspension Prefilled Syringe Lot #: [id number] on: 23-Apr-2019 Prevnar 13 Intramuscular Suspension Lot #: [id number] on: 23-Apr-2019 Family History Name Dates Details Family history of Denial Of Any Significant Medical History Comments: Family History Status: Active Name Dates Details No pertinent family history (V49.89, Z78.9) Status: Active Social History Name Dates Details - Status: Name Dates Details Former smoker Vital Signs Date Test Result Details No Known Vitals to report Results Date Description Value Details [id number] [U] XRAY FEMUR 2 VWS RIGHT 85323 XR FEMUR 2 VWS RIGHT Images acquired, not reported on this accession number. Plan of Care Name Dates Details Planned Observations Planned Goals not documented Planned Encounters Appointment; BARBARA HENDERSON M.D. On: 15-Aug-2019 11:30 Appointment; [facility], ECHO On: 27-Nov-2019 8:00 [facility]ointment[facility]: 27-Nov-2019 8:30 Appointment; YAW KAY M.D. On: 17-Dec-2019 10:40 Interventions Provided Medication Changes* Levothyroxine Sodium 175 MCG Oral Tablet - Renew Instructions Name Dates [...] documented On: 23-Aug-2018 7:30 Appointment; TAMAR MARIANO PYajairaAYajaira Encounter Diagnosis: Problem not documented On: 28-Aug-2018 [...]
--- OUTSIDE RECORDS SUMMARY | 2019-08-14 06:31 | XMS REPORT | Summary of Care ---
Author Author Aly ADAMS, Carol Vasquez Unknown Address [facility] Phone Unavailable Care Team Providers Care Principal Planner Name Role Phone MONTSERRAT Hunt., TAMAR Unavailable Unavailable MAGALYS Joe, JACOB Unavailable Unavailable BALA Joe, BING Unavailable Unavailable YESI Joe, YAW Unavailable Unavailable BALA SNOW SC, BING GLYNN Unavailable Unavailable KESHIA SNIDER [place], FESTUS VICTOR Unavailable Unavailable GUANACO SNOW SC, KRIS Contreras Unavailable Unavailable Yesi SNOW, Yaw [...] 50 MG Oral Tablet TAKE 1 TABLET BY MOUTH EVERYDAY AT BEDTIME * Quantity: 90 Refills: 1 MARIANO P.A., TAMAR * Start : 22-May-2019 [...] Details [U] XRAY FEMUR 2 VWS RIGHT 00691 Date: 03-Aug-2019 History of Hernia Repair Completed History of Lower Back Surgery Completed History of Ankle Surgery Completed History of Cath Placement Of Stent 1 Completed Immunization Name Dates Details Tdap on: 24-Jan-2008 Influenza on: 09-Apr-2008 H1N1 Influenza Inj on: 18-Apr-2009 Pneumo on: 25-Mar-2010 Fluzone INJ Lot #: [id number] on: 13-Feb-2013 Fluarix Quadrivalent 0.5 ML SUSP Lot #: [id number] on: 05-Mar-2014 Fluzone Quadrivalent 0.5 ML Intramuscular Suspension Lot #: [id number] on: 05-Mar-2015 Prevnar 13 Intramuscular Suspension Lot #: [id number] on: 05-Mar-2015 Fluzone High-Dose SUSP Lot #: [id number] on: 26-Mar-2016 Fluzone Quadrivalent 0.5 ML Intramuscular Suspension Prefilled Syringe Lot #: [id number] on: 28-Feb-2017 Fluzone High-Dose 0.5 ML Intramuscular Suspension Prefilled Syringe Lot #: [id number] on: 20-Feb-2018 Fluzone High-Dose 0.5 ML Intramuscular Suspension Prefilled Syringe Lot #: [id number] on: 23-Apr-2019 Prevnar 13 Intramuscular Suspension Lot #: [id number] on: 23-Apr-2019 Family History Name Dates Details Family history of Denial Of Any Significant Medical History Comments: Family History Status: Active Name Dates Details No pertinent family history (V49.89, Z78.9) Status: Active Social History Name Dates Details - Status: Name Dates Details Ex-smoker (finding) Vital Signs Date Test Result Details No Known Vitals to report Results Date Description Value Details Results not documented Plan of Care Name Dates Details Planned Observations Planned Goals not documented Planned Encounters Appointment; BARBARA HENDERSON M.D. On: 15-Aug-2019 11:30 Appointment; FADYSEANORE-MS, ECHO On: 27-Nov-2019 8:00 Appointment; FADYSHORE-MS, NUCLEAR On: 27-Nov-2019 8:30 Appointment; YAW KAY M.D. On: 17-Dec-2019 10:40 Interventions Provided Medication Changes* traZODone HCl - 50 MG Oral Tablet - Renew Instructions Name [...] not documented On: 28-Dec-2018 10:00 Appointment; TAMAR MARIAON P.A. Encounter Diagnosis: Problem not documented On: [...]
--- OUTSIDE RECORDS SUMMARY | 2019-08-14 06:31 | XMS REPORT | Summary of Care ---
Author Author James Villegas Unknown Address Unknown Phone Unavailable Care Team Providers Care Band Sawyer Name Role Phone SANTIAGO Joe, BARBARA Unavailable Unavailable MONTSERRAT P.A., TAMAR Unavailable Unavailable MAGALYS Joe, JACOB Unavailable Unavailable BALA Joe, BING Unavailable Unavailable YESI Joe, YAW Unavailable Unavailable BALA SNOW [place], BING GLYNN Unavailable Unavailable KESHIA SNIDER [place], FESTUS VICTOR Unavailable Unavailable GUANACO SNOW [place], KRIS Contreras Unavailable Unavailable Yesi SNOW, Yaw Unavailable Unavailable DESTINI VAZQUEZ [place], LUCY Unavailable Unavailable MONTSERRTA WARNER, TAMAR Unavailable Unavailable SANTIAGO SNOW, BARBARA [...] AT BEDTIME * Quantity: 90 Refills: 1 AB KAY M.D.HIJEET * Start : 14-Jul-2012 Active Folic Acid [...] Details [U] XRAY FEMUR 2 VWS RIGHT 80171 Date: 03-Aug-2019 History of Hernia Repair Completed History of Lower Back Surgery Completed History of Ankle Surgery Completed History of Cath Placement Of Stent 1 Completed Immunization Name Dates Details Tdap on: 24-Jan-2008 Influenza on: 09-Apr-2008 H1N1 Influenza Inj on: 18-Apr-2009 Pneumo on: 25-Mar-2010 Fluzone INJ Lot #: [id number] on: 13-Feb-2013 Fluarix Quadrivalent 0.5 ML SUSP Lot #: [id number] on: 05-Mar-2014 Fluzone Quadrivalent 0.5 ML Intramuscular Suspension Lot #: [id number] on: 05-Mar-2015 Prevnar 13 Intramuscular Suspension Lot #: [id number] on: 05-Mar-2015 Fluzone High-Dose SUSP Lot #: [id number] on: 26-Mar-2016 Fluzone Quadrivalent 0.5 ML Intramuscular Suspension Prefilled Syringe Lot #: [id number] on: 28-Feb-2017 Fluzone High-Dose 0.5 ML Intramuscular Suspension Prefilled Syringe Lot #: [id number] on: 20-Feb-2018 Fluzone High-Dose 0.5 ML Intramuscular Suspension Prefilled Syringe Lot #: [id number] on: 23-Apr-2019 Prevnar 13 Intramuscular Suspension Lot #: [id number] on: 23-Apr-2019 Family History Name Dates Details Family history of Denial Of Any Significant Medical History Comments: Family History Status: Active Name Dates Details No pertinent family history (V49.89, Z78.9) Status: Active Social History Name Dates Details - Status: Name Dates Details Ex-smoker (finding) Vital Signs Date Test Result Details No Known Vitals to report Results Date Description Value Details [id number] [U] XRAY FEMUR 2 VWS RIGHT [id number] XR FEMUR 2 VWS RIGHT Images acquired, not reported on this accession number. Plan of Care Name Dates Details Planned Observations Planned Goals not documented Planned Encounters Appointment; BARBARA HENDERSON M.D. On: 15-Aug-2019 11:30 Appointment; ODALYS ECHO On: 27-Nov-2019 8:00 Appointment; ODALYS, NUCLEAR On: 27-Nov-2019 8:30 Appointment; YAW KAY M.D. On: 17-Dec-2019 10:40 Interventions Provided Labs/Procedures/Imaging* [U] XRAY FEMUR 2 VWS RIGHT [id number]; To Be Done: 15 Aug 2019 Instructions Name Dates Details Instructions not [...] Diagnosis: Problem not documented On: 04-Jul-2019 11:30 Appointment; BARBARA HENDERSON M.D. Encounter Diagnosis: Problem not documented On: 15-Aug-2019 11:30
[2019-08-14] MEDS ORDERED: ALBUTEROL SULF 0.083% NEB SOLN 3 ML NEB NEB STA (06:37)
[2019-08-14] MEDS ORDERED: ASPIRIN 81 MG CHEW TAB PO ONE (06:45)
[2019-08-14 06:49] LABS: BASOPHILS % 0.1 % (0.0-1.0); EOSINOPHILS # (AUTO) 0.1 (0.0-0.4); EOSINOPHILS % 0.7 % (0.0-6.0); HEMATOCRIT 42.3 % (38.2-49.6); HEMOGLOBIN 13.5 g/dL (14.0-18.0); LYMPHOCYTES # (AUTO) 1.3 (1.0-3.2); LYMPHOCYTES % 15.2 % (18.0-39.1); MEAN CORPUSCULAR HEMOGLOBIN 29.2 pg (28-32); MEAN CORPUSCULAR HGB CONC 31.9 g/dL (31-35); MEAN CORPUSCULAR VOLUME 91.6 fL (81-99); MONOCYTES # (AUTO) 0.9 (0.2-0.8); MONOCYTES % 10.6 % (4.4-11.3); NEUTROPHILS # (AUTO) 6.2 (2.1-6.9); NEUTROPHILS % 73.2 % (38.7-80.0); PLATELET COUNT 221 x10e3/uL (140-360); RED BLOOD COUNT 4.62 x10e6/uL (4.3-5.7); RED CELL DISTRIBUTION WIDTH 14.6 % (11.7-14.4)
[2019-08-14] MEDS ORDERED: MORPHINE SULFATE INJ 4 MG/ML INJ 1ML IV PRN (07:00)
[2019-08-14 07:07] LABS: ALBUMIN 3.4 g/dL (3.5-5.0); ALBUMIN/GLOBULIN RATIO 0.8 (0.8-2.0); ANION GAP 12.4 mmol/L (8-16); CALCIUM 9.4 mg/dL (8.4-10.2); CREATININE, SERUM 1.19 mg/dL (0.72-1.25); POTASSIUM 4.4 mmol/L (3.5-5.1)
--- NOTE | 2019-08-14 07:08 | NUR ---
report received from Karley BYERS
[2019-08-14 07:13] LABS: CREATINE KINASE MB 0.8 ng/mL (0-5.0)
[2019-08-14] MEDS ORDERED: NITROGLYCERIN 2% OINT 1 GM PKT TOP STA (07:33)
[2019-08-14] MEDS ORDERED: ACETAMINOPHEN 325 MG TAB PO ONE (07:45)
[2019-08-14] MEDS ORDERED: LORAZEPAM INJ 2 MG/ML VIAL IV ONE (08:00)
[2019-08-14] MEDS ORDERED: KETOROLAC TROMETHAMINE 30 MG/ML VIAL IV STA (08:24)
[2019-08-14 08:29] LABS: ABG HCO3 25 mmol/L (23-28); ABG PCO2 38 mmHg (41-51); ABG PH 7.43 (7.31-7.41); ABG PO2 99 mmHg (80-105)
--- NOTE | 2019-08-14 08:55 | NUR ---
defibrillator pads placed on patient per MD request due to patient having approximately a three second run of what appears to be ventricular tachycardia. Rhythm strip printed out and placed on patients chart.
--- NOTE | 2019-08-14 09:06 | Diagnostic Imaging Report ---
EXAMINATION: Pulmonary interstitial and airspace edema. INDICATION: Chest pain COMPARISON: None FINDINGS: LINES/TUBES:EKG leads overlie the chest. LUNGS:The lungs are moderately inflated. There is perihilar fullness and indistinctness of the pulmonary vasculature. Bilateral interstitial and airspace opacities. PLEURA:No pleural effusion or pneumothorax. MEDIASTINUM:The cardiomediastinal silhouette appears normal in size and shape. BONES/SOFT TISSUES:No acute osseous injury. ABDOMEN:No free air under the diaphragm. IMPRESSION: Pulmonary interstitial and airspace edema. Signed by: Shashi Riddle MD on 08/14/2019 9:03 AM
[2019-08-14] MEDS ORDERED: ASPIRIN 325 MG TAB PO STA (09:24)
[2019-08-14] MEDS ORDERED: SODIUM CHLORIDE 0.9% 1000ML 1,000 ML IV STA (09:24)
[2019-08-14] MEDS ORDERED: ENOXAPARIN SODIUM INJ 100 MG/ML SYR SC STA (09:24)
[2019-08-14] MEDS ORDERED: SODIUM CHLORIDE 0.9% 1000ML 1,000 ML IV ONE (12:00)
[2019-08-14] MEDS ORDERED: SODIUM CHLORIDE 0.9% 1000ML 1,000 ML ONE (12:02)
--- NOTE | 2019-08-14 12:06 | Diagnostic Imaging Report ---
EXAMINATION: CT of the chest with contrast, PE protocol. TECHNIQUE: Spiral CT images of the chest were performed from the lung apices through the level of the adrenal glands after the IV administration of 100 cc of Isovue 370. Thin section reconstructions were obtained with special concentration on the pulmonary arteries. COMPARISON: Chest radiograph 08/14/2019 CLINICAL HISTORY:Chest pain DISCUSSION: Vasculature: [<The main pulmonary artery, right and left pulmonary arteries, and their visualized lobar and segmental branches are patent, without filling defect. The pulmonary outflow tract is enlarged, measuring 3.9 cm transversely. Atherosclerotic calcification of the thoracic aorta, which is borderline ectatic (3.9 cm). Atherosclerotic calcification of the holy cross coronary arteries and great vessel origins. Metallic probable occlusion device in the left atrial appendage. Lungs: Groundglass opacities with interlobular septal thickening predominantly in a perihilar distribution. Bandlike opacities in the right upper and lower lobes. 4 mm nodule in the lingula seen on series 3 image 56. Tree-in-bud nodular opacities anteriorly within the right upper lobe for example on series 3 image 51. Trace bilateral pleural effusions with passive atelectasis of the posterior basal segments of the lower lobes. Airways: Trachea, mainstem bronchi, and lobar and segmental bronchi are patent, without filling defects. Pleura: Trace bilateral pleural effusions. No pneumothorax. Heart and mediastinum: Visualized portions of the thyroid gland appear normal. Mild cardiomegaly with a small pericardial effusion. No axillary lymphadenopathy. Mild right hilar lymphadenopathy for example on series 2 image 49. Mediastinal lymph nodes are increased in number but not enlarged by CT criteria. Abdomen: Visualized portions of the liver, spleen, pancreas, and adrenal glands are unremarkable. Moderate sliding hiatal hernia. Bones and soft tissues: Degenerative changes of the thoracolumbar spine. Incompletely healed fracture deformities of the posterior left eighth, ninth, and 10th ribs. IMPRESSION: No pulmonary embolus to the level of the segmental branch pulmonary arteries. Interstitial and alveolar pulmonary edema with trace bilateral pleural effusions. Superimposed tree-in-bud nodules in the right upper lobe suggest atypical infection, with reactive mild right hilar lymphadenopathy. Atherosclerotic vascular disease with borderline ectasia of the ascending thoracic aorta (3.9 cm). Enlargement of the pulmonary outflow tract suggests underlying pulmonary hypertension. Small pericardial effusion. Moderate hiatal hernia. 4 mm lingular nodule should be assessed for stability by CT scan of the chest in one year if the patient is at high risk of malignancy. Signed by: Dr. Jermaine Conrad M.D. on 08/14/2019 12:03 PM
--- NOTE | 2019-08-14 13:09 | NUR ---
ATTEMPTED TO CALL REPORT WAS TOLD THAT NURSE WOULD CALL BACK.
[2019-08-14] MEDS ORDERED: FUROSEMIDE INJ 10 MG/ML 4 ML VIAL IV SCH (15:25)
[2019-08-14] MEDS ORDERED: SODIUM CHLORIDE 0.9% 50ML 50 ML ONE (15:34)
[2019-08-14] MEDS ORDERED: IOPAMIDOL 370 MG/ML 200 ML INFUS..BTL INJ ONE (15:34)
[2019-08-14 15:52] VITALS: BP 86/63
[2019-08-14 15:54] VITALS: BP 86/63
[2019-08-14 16:23] VITALS: BP 97/63
[2019-08-14] MEDS: RANOLAZINE 500 MG TABSR PO SCH (16:38)
[2019-08-14 17:39] LABS: CREATINE KINASE MB 0.6 ng/mL (0-5.0)
[2019-08-14 19:00] VITALS: BP 139/54
--- NOTE | 2019-08-14 19:11 | NUR ---
pt off unit for nucmed
--- NOTE | 2019-08-14 21:03 | Consultation ---
DATE OF CONSULTATION: 08/14/2019 HISTORY OF PRESENT ILLNESS: Mr. Thomas Acuña is an 83-year-old male with primary history of hypertension, CAD with previous stents in 2005, atrial fibrillations, status post Watchman procedure in 2016, admitted complaining of chest pain, which he describes as pressure associated with shortness of breath, although nonradiating with 10/10 intensity that exacerbates with coughing. The patient reports he started coughing few hours before chest pain occurred. The patient denies dizziness or palpitations. Denies nausea or vomiting. Denies fever or chills. MEDICAL HISTORY: Hypertension, CAD with previous stents in 2005, atrial fibrillation with Watchman in 2016, osteoarthritis. HOME MEDICATIONS: The patient is taking aspirin 325 mg daily, amiodarone 200 mg p.o. daily, carvedilol 6.25 mg one tablet daily, Atorvastatin 20 mg daily, levothyroxine 175 mcg p.o. daily, lisinopril 2.5 mg daily. PHYSICAL EXAMINATION: VITAL SIGNS: On admission, BP was 169/87, heart rate of 92, temperature is 98.8, pulse ox is 98% on 3 L nasal cannula, respiration rate is 18. GENERAL APPEARANCE: The patient is well developed, well nourished, in no acute distress. HEAD: Normocephalic and atraumatic. Eyes, pupils equally round and reactive to light and accommodation. Sclerae nonicteric. Ears are normal. Oral cavity, mucosa is moist. Throat is clear. NECK AND THYROID: Neck is supple. Full range of motion. No cervical lymphadenopathy. SKIN: Warm and dry. No suspicious lesions. CARDIOVASCULAR: Regular rate and rhythm. S1 and S2 are normal. No murmurs heard. LUNGS: Diminished to lower lobes bilaterally. EXTREMITIES: No clubbing. No cyanosis. No edema. NEUROLOGIC: Nonfocal. Motor strength is normal, upper and lower extremities. Sensory exam is intact. IMPRESSION AND PLAN: The patient is an 83-year-old male admitted with elevated blood pressure and D-dimer elevation and chest pain. Initial troponin EKG shows no evidence of ischemia. The patient did have few beats of VT this morning, persistently complaining of chest pain. Blood pressure dropped when nitropaste was administered. 1. Trend serial cardiac enzymes, monitor on telemetry. 2. Nitrate as tolerated and oxygen supplement. 3. Controlled hypertension and continue cardiac medications, home doses, and restart antiarrhythmia and anticoagulation. 4. Obtain echocardiogram to evaluate LVEF and CT chest was performed, shows no evidence of pulmonary embolus. Thank you for this consultation. We will continue to follow. Further recommendation will follow according to the patient's clinical course. Dictated by Radha Palacios NP MD JAMES Pond/OSMEL /[id number]
[2019-08-14] MEDS ORDERED: FUROSEMIDE INJ 10 MG/ML 4 ML VIAL ONE (21:04)
[2019-08-14 21:21] VITALS: BP 117/74
[2019-08-14 23:00] VITALS: BP 102/37
[2019-08-15] VITALS (9 sets, daily range): BP systolic 96–133; BP diastolic 38–85
[2019-08-15 05:26] LABS: BASOPHILS % 0.1 % (0.0-1.0); EOSINOPHILS % 0.2 % (0.0-6.0); HEMATOCRIT 34.2 % (38.2-49.6); HEMOGLOBIN 10.7 g/dL (14.0-18.0); LYMPHOCYTES % 9.4 % (18.0-39.1); MEAN CORPUSCULAR HEMOGLOBIN 28.8 pg (28-32); MEAN CORPUSCULAR HGB CONC 31.3 g/dL (31-35); MEAN CORPUSCULAR VOLUME 92.2 fL (81-99); MONOCYTES # (AUTO) 1.3 (0.2-0.8); MONOCYTES % 12.1 % (4.4-11.3); NEUTROPHILS # (AUTO) 8.1 (2.1-6.9); NEUTROPHILS % 77.9 % (38.7-80.0); PLATELET COUNT 150 x10e3/uL (140-360); RED BLOOD COUNT 3.71 x10e6/uL (4.3-5.7); RED CELL DISTRIBUTION WIDTH 14.9 % (11.7-14.4)
[2019-08-15 05:44] LABS: ALBUMIN 2.7 g/dL (3.5-5.0); ALBUMIN/GLOBULIN RATIO 0.8 (0.8-2.0); ANION GAP 9.9 mmol/L (8-16); CALCIUM 8.4 mg/dL (8.4-10.2); CREATININE, SERUM 1.23 mg/dL (0.72-1.25); POTASSIUM 3.9 mmol/L (3.5-5.1)
[2019-08-15 06:10] LABS: CREATINE KINASE MB 0.8 ng/mL (0-5.0)
[2019-08-15] MEDS ORDERED: MYRBETRIQ50 MG PO (08:38)
[2019-08-15] MEDS ORDERED: PRESERVISION A1 EACH PO (08:38)
[2019-08-15] MEDS ORDERED: IRON325 M1 PO (08:38)
[2019-08-15] MEDS ORDERED: CENTRUM SILVER1 EAC3 PO (08:38)
[2019-08-15] MEDS: AMIODARONE HCL 200 MG TAB PO SCH (09:10)
[2019-08-15] MEDS ORDERED: VITAMIN B-121000 MC1 PO (09:15)
[2019-08-15] MEDS ORDERED: AMIODARONE HCL200 MG PO (09:15)
[2019-08-15] MEDS ORDERED: ASPIRIN ENTERI325 MG PO (09:15)
[2019-08-15] MEDS ORDERED: NITROGLYCERIN0.4 MG SL (09:15)
[2019-08-15] MEDS ORDERED: FLOMAX0.4 MG PO (09:33)
[2019-08-15] MEDS ORDERED: SULFASALAZINE500 MG PO (09:33)
[2019-08-15] MEDS ORDERED: NEPHRO-VITE TABL1 EA PO (09:33)
[2019-08-15] MEDS ORDERED: LISINOPRIL2.5 MG PO (09:33)
[2019-08-15] MEDS ORDERED: CARVEDILOL3.125 MG PO (09:33)
[2019-08-15] MEDS ORDERED: LEVOTHYROXINE112 MCG PO (09:33)
[2019-08-15] MEDS ORDERED: ATORVASTATIN CA20 MG PO (09:33)
[2019-08-15] MEDS ORDERED: FAMOTIDINE20 MG PO (09:33)
--- NOTE | 2019-08-15 09:39 | NUR ---
DR. RODARTE ROUNDING TO SEE PATIENT, RECEIVED ORDERS TO DO MEDICATION RECONCILIATION AND TO RESUME HOME MEDICATIONS.
[2019-08-15] MEDS ORDERED: NITROGLYCERIN 0.4 MG SUBL SL PRN (09:45)
[2019-08-15] MEDS: RANOLAZINE 500 MG TABSR PO SCH ×2 (10:25→17:25)
[2019-08-15] MEDS ORDERED: REGADENOSON 0.4 MG/5 ML SYR IV ONE (14:33)
--- NOTE | 2019-08-15 14:40 | NUR ---
Patient left off unit to Lexiscan stress test.
[2019-08-15] MEDS: SULFASALAZINE 500 MG TAB PO SCH ×2 (15:00→20:22)
[2019-08-15 15:36] LABS: CREATINE KINASE MB 1.1 ng/mL (0-5.0)
[2019-08-15] MEDS: FUROSEMIDE 40 MG TAB PO SCH (17:10)
[2019-08-15] MEDS: LEVOFLOXACIN 500 MG TAB PO SCH (17:10)
[2019-08-15] MEDS: FAMOTIDINE 20 MG TAB PO SCH (17:11)
[2019-08-15] MEDS: TAMSULOSIN HCL 0.4 MG CAP PO SCH (17:11)
[2019-08-15] MEDS: CARVEDILOL 3.125 MG TAB PO SCH (17:25)
--- NOTE | 2019-08-15 19:10 | NUR ---
Handoff report to oncoming nurse, patient in bed resting, patient continues in A-fib, HR controlled. Patient verbalizing needs and using call light appropriately. Walker at bedside, instructed to use call light when needing assistance.
[2019-08-15] MEDS ORDERED: ATORVASTATIN 20 MG TAB PO SCH (21:00)
[2019-08-16] VITALS: BP 111/67
--- NOTE | 2019-08-16 00:50 | Operative Report ---
DATE OF PROCEDURE: SURGEON: Jermaine Toledo MD PROCEDURE: Lexiscan nuclear stress test. INDICATION: Shortness of breath. COMPLICATIONS: None. TECHNIQUE: The patient was given 11 mCi of Myoview. Resting images were obtained in the horizontal long axis, vertical long axis, and short axis. The patient was then hooked up to the EKG machine and Lexiscan was infused over 15 seconds. During Lexiscan infusion, the patient had no chest pain and no EKG changes. Immediately after Lexiscan infusion, the patient was given 33 mCi of Myoview. Stress images were obtained 30 minutes after completion of Lexiscan infusion. Stress images were obtained in the horizontal long axis, vertical long axis, and short axis. Results are as follows: 1. The resting EKG demonstrated atrial fibrillation with some nonspecific ST and T-wave changes. 2. There were no EKG changes and no symptoms during Lexiscan infusion. 3. There was normal perfusion to all segments of the myocardium in both stress and rest. 4. There was a mildly dilated left ventricle with mild global left ventricular dysfunction and an ejection fraction of 48%. CONCLUSION: Normal perfusion to all segments of the myocardium in both stress and rest with no evidence of ischemia. Jermaine Toledo MD H/MODL /[id number] cc: Thomas López MD
[2019-08-16 04:00] VITALS: BP 115/57
[2019-08-16 05:36] LABS: BASOPHILS % 0.1 % (0.0-1.0); EOSINOPHILS % 0.4 % (0.0-6.0); HEMATOCRIT 35.2 % (38.2-49.6); LYMPHOCYTES % 11.6 % (18.0-39.1); MEAN CORPUSCULAR HEMOGLOBIN 28.4 pg (28-32); MEAN CORPUSCULAR HGB CONC 31.3 g/dL (31-35); MEAN CORPUSCULAR VOLUME 90.7 fL (81-99); MONOCYTES # (AUTO) 0.9 (0.2-0.8); MONOCYTES % 10.8 % (4.4-11.3); NEUTROPHILS # (AUTO) 6.4 (2.1-6.9); NEUTROPHILS % 76.7 % (38.7-80.0); PLATELET COUNT 163 x10e3/uL (140-360); RED BLOOD COUNT 3.88 x10e6/uL (4.3-5.7); RED CELL DISTRIBUTION WIDTH 14.8 % (11.7-14.4)
[2019-08-16 05:58] LABS: BLOOD UREA NITROGEN 16 mg/dL (7-26); BUN/CREATININE RATIO 14 (6-25); CALCIUM 8.9 mg/dL (8.4-10.2); CARBON DIOXIDE 29 mmol/L (22-29); CHLORIDE 102 mmol/L (98-107); CREATININE, SERUM 1.11 mg/dL (0.72-1.25); EST GLOMERULAR FILTRATION RATE > 60 ML/MIN (60-); GLUCOSE 76 mg/dL (74-118); SODIUM 135 mmol/L (136-145)
[2019-08-16] MEDS ORDERED: LEVOTHYROXINE SODIUM 112 MCG TAB PO SCH (06:00)
[2019-08-16] MEDS ORDERED: LEVOTHYROXINE SODIUM 100 MCG TAB PO SCH (06:00)
[2019-08-16] MEDS ORDERED: LEVOTHYROXINE SODIUM 75 MCG TAB PO SCH (06:00)
[2019-08-16 07:40] VITALS: BP 108/55
[2019-08-16] MEDS ORDERED: NON-FORMULARY MEDICATION (Mirabegron (Myrbetriq) 50 MG) PO SCH (09:00)
[2019-08-16] MEDS ORDERED: FERROUS SULFATE 325 MG TAB PO SCH (09:00)
[2019-08-16] MEDS ORDERED: CYANOCOBALAMIN 1,000 MCG TAB PO SCH (09:00)
[2019-08-16] MEDS ORDERED: FOLIC ACID/CYANOCOB/PYRIDOXINE TAB PO SCH (09:00)
[2019-08-16] MEDS ORDERED: ASPIRIN 325 MG TAB EC PO SCH (09:00)
[2019-08-16] MEDS ORDERED: FOLIC ACID 1 MG TAB PO SCH (09:00)
[2019-08-16] MEDS ORDERED: LISINOPRIL 2.5 MG TAB PO SCH (09:00)
[2019-08-16] MEDS: TAMSULOSIN HCL 0.4 MG CAP PO SCH (09:13)
[2019-08-16] MEDS: FUROSEMIDE 40 MG TAB PO SCH (09:14)
[2019-08-16] MEDS: SULFASALAZINE 500 MG TAB PO SCH (09:14)
[2019-08-16] MEDS: LEVOFLOXACIN 500 MG TAB PO SCH (09:14)
[2019-08-16] MEDS: AMIODARONE HCL 200 MG TAB PO SCH (09:14)
[2019-08-16] MEDS: FAMOTIDINE 20 MG TAB PO SCH (09:15)
[2019-08-16] MEDS: CARVEDILOL 3.125 MG TAB PO SCH (09:20)
[2019-08-16] MEDS: RANOLAZINE 500 MG TABSR PO SCH (09:21)
[2019-08-16 09:58] VITALS: BP 104/57
[2019-08-16 11:12] VITALS: BP 113/58
--- NOTE | 2019-08-16 11:24 | NUR ---
Patient discharged home Mr. Acuña and his son-in-law verbalized understanding of discharge instructions. Given prescription for Lasix, Levaquin, and Tessalon Perls. IV access discontinued prior to discharge, and instructed to follow up with his pocketed spring machine operator, and PCP, patient and son-in-law, verbalized understanding. Patient escorted via wheel chair to front of hospital accompanied by nursing staff, to meet family in front of hospital.
--- NOTE | 2019-08-17 05:01 | Discharge Summary ---
BARN WORKER: Dr. Jermaine Toledo. PRIMARY CARE PHYSICIAN: Dr. Pardeep Romero. FINAL DIAGNOSES: 1. Atypical pneumonia. 2. Vascular congestion with normal ejection fraction. 3. Cough. SUMMARY: The patient is an 83-year-old male with dry cough and then subsequently developed some chest discomfort. The patient came to the hospital for evaluation. He is started on Levaquin. He has tolerated well. The patient is otherwise stable. He is comfortable. Blood pressure is stable as well. He had a low-grade temperature, but resolved. He had a nuclear stress test that was negative. Cardiac enzymes negative as well. The patient is stable. At this time, the patient is stable and discharged home. Resume home medication. Lasix 20 mg once a day. Levaquin 500 mg daily for 7 days. Tessalon Perles 100 mg q.6 p.r.n. for cough. The patient is stable, discharged home. Resume home medication. Follow up with Dr. Pardeep Romero, his primary care physician within a week. MD ROMAN Pearson/MODL /[id number]
--- NOTE | 2019-08-24 12:56 | EXERCISE STRESS TEST ---
DATE OF STUDY: 08/15/2019 08:00:00 Stress Test - Treadmill ONLY PROCEDURE: Lexiscan nuclear stress test. INDICATION: Shortness of breath. COMPLICATIONS: None. TECHNIQUE: The patient was given 11 mCi of Myoview. Resting images were obtained in the horizontal long axis, vertical long axis, and short axis. The patient was then hooked up to the EKG machine and Lexiscan was infused over 15 seconds. During Lexiscan infusion, the patient had no chest pain and no EKG changes. Immediately after Lexiscan infusion, the patient was given 33 mCi of Myoview. Stress images were obtained 30 minutes after completion of Lexiscan infusion. Stress images were obtained in the horizontal long axis, vertical long axis, and short axis. Results are as follows: 1. The resting EKG demonstrated atrial fibrillation with some nonspecific ST and T-wave changes. 2. There were no EKG changes and no symptoms during Lexiscan infusion. 3. There was normal perfusion to all segments of the myocardium in both stress and rest. 4. There was a mildly dilated left ventricle with mild global left ventricular dysfunction and an ejection fraction of 48%. CONCLUSION: Normal perfusion to all segments of the myocardium in both stress and rest with no evidence of ischemia. Jermaine Toledo MD DSH/MODL /[id number] cc: Thomas López MD
== END 2019-08-16 11:15 | disposition home or self-care (01) | DRG 195 ==
LOC: ER 06:23 → ERHOLD 09:27 → IMCU 14:18
PROVIDERS: ADMIT Internal Medicine; ATTEND Internal Medicine
DX: J18.9 Pneumonia, unspecified organism (principal); I50.9 Heart failure, unspecified; I11.0 Hypertensive heart disease with heart failure; I25.10 Atherosclerotic heart disease of native coronary artery without angina pectoris; Z95.5 Presence of coronary angioplasty implant and graft; I48.91 Unspecified atrial fibrillation; M19.90 Unspecified osteoarthritis, unspecified site; Z95.818 Presence of other cardiac implants and grafts; Z88.8 Allergy status to other drugs, medicaments and biological substances
CPT/HCPCS: 36415; 36600; 71045; 71260; 78452; 80048; 80053; 82550; 82553; 82805; 82948; 83880; 84484; 85025; 85379; 93005; 93017; 93306; 94640; 99285; A9502; J1650; J1885; J1940; J2060; J2270; J7030; Q9967

== ENCOUNTER 2019-08-20 05:54 | Emergency (ER) | payer MEDICARE, OTHER ==
[~2019-08-20] VITALS: Ht 188 cm; Wt 88.5 kg
[~2019-08-20 05:54] MED LIST changes: +AMIODARONE HCL200 MG PO; +ASPIRIN ENTERI325 MG PO; +ATORVASTATIN CA20 MG PO; +CENTRUM SILVER1 EAC3 PO; +IRON325 M1 PO; +LEVOTHYROXINE112 MCG PO; +LISINOPRIL2.5 MG PO; +MYRBETRIQ50 MG PO; +NEPHRO-VITE TABL1 EA PO; +NITROGLYCERIN0.4 MG SL; +PRESERVISION A1 EACH PO; +SULFASALAZINE500 MG PO; +VITAMIN B-121000 MC1 PO
--- OUTSIDE RECORDS SUMMARY | 2019-08-20 06:01 | XMS REPORT | Summary of Care ---
Author Author Angelica Valerio Organization Unknown Address Unknown Phone Unavailable Care Team Providers Care Button Tufter Name Role Phone MONTSERRAT BuckAYajaira, TAMAR Unavailable Unavailable MAGALYS Joe, JACOB Unavailable Unavailable BALA Joe, BING Unavailable Unavailable YESI Joe, YAW Unavailable Unavailable Angelica Valerio Unavailable Unavailable BALA SNOW SC, BING GLYNN Unavailable Unavailable KESHIA SNIDER SC, FESTUS VICTOR Unavailable Unavailable GUANACO SNOW SC, KRIS Contreras Unavailable Unavailable Yesi SNOW, Yaw Unavailable Unavailable DESTINI VAZQUEZ SC, LUCY Unavailable Unavailable MONTSERRAT WARNER, TAMAR Unavailable [...] by mouth twice a day Quantity: 180 DHRAMSEY M.DYajaira, YAW * Start : 06-Jul-2012 Active Atorvastatin Calcium 20 MG Oral Tablet TAKE 1 TABLET BY MOUTH AT BEDTIME * Quantity: 90 Refills: 1 DHOBLE M.D., YAW * Start : 14-Jul-2012 Active Folic Acid 1 MG Oral Tablet TAKE 1 TABLET DAILY. * Refills: 0 * Start : 14-Jul-2012 Active Vitamin B-12 ER 1000 MCG Oral Tablet Extended Release TAKE 1 TABLET DAILY DIRECTED. * Refills: 0 * Start : 27-Jul-2012 Active Centrum Silver TABS TAKE 1 TABLET DAILY. * Refills: 0 Active Testosterone Cypionate SOLN 2000mg 1 injection every 10 days * Refills: 0 Active Nitroglycerin 0.4 MG Sublingual Tablet Sublingual PLEASE SEE ATTACHED FOR DETAILED DIRECTIONS * Quantity: 25 Refills: 0 DHOBLE M.D., YAW * Start : 25-Sep-2018 Active Tamsulosin HCl - 0.4 MG Oral Capsule TAKE ONE CAPSULE BY MOUTH EVERY DAY WITH DINNER. needs office visit * Quantity: 30 Refills: 0 MAGALYS Joe JACOB * Start : 17-Oct-2013 Active sulfaSALAzine 500 MG Oral Tablet tid * Quantity: 270 Refills: 0 MARIANO P.A.TAMAR Active Famotidine 20 MG Oral Tablet TAKE 1 TABLET TWICE DAILY. * Quantity: 180 Refills: 1 BING MCKENNA M.D. * Start : 24-May-2016 Active Vicks Sinex 12 Hour Decongest 0.05 % Nasal Solution * Refills: 0 Active Myrbetriq 50 MG Oral Tablet Extended Release 24 Hour 1 qd * Refills: 0 Active PreserVision AREDS Oral Capsule TAKE DIRECTED. * Refills: 0 * Start : 17-Apr-2019 Active Iron 325 (65 Fe) MG Oral Tablet TAKE 1 TABLET DAILY DIRECTED. * Refills: 0 * Start : 17-Apr-2019 Active Amiodarone HCl - 200 MG Oral Tablet TAKE 1 TABLET BY MOUTH EVERY DAY * Quantity: 90 Refills: 3 YESI Joe, YAW * Start : 11-Dec-2018 Active Lisinopril 2.5 MG Oral Tablet TAKE 1 TABLET BY MOUTH DAILY * Quantity: 90 Refills: 3 YESI Joe, YAW * Start : 25-Apr-2019 Active Diclofenac Sodium 75 MG Oral Tablet Delayed Release Please specify directions, refills and quantity * Quantity: 1 Refills: 0 MARIANO P.A., TAMAR * Start : 22-Jun-2019 Active Naproxen 500 MG Oral Tablet Please specify directions, refills and quantity * Quantity: 1 Refills: 0 MARIANO P.A., TAMAR * Start : 26-Jul-2019 Active Aspirin EC 325 MG Oral Tablet Delayed Release TAKE 1 TABLET BY MOUTH EVERY DAY * Quantity: 90 Refills: 3 YESI Joe, YAW * Start : 25-May-2017 Active Levothyroxine Sodium 175 MCG Oral Tablet TAKE 1 TABLET BY MOUTH EVERY DAY * Quantity: 90 Refills: 0 MARIANO P.A., TAMAR * Start : 04-Sep-2018 Active traZODone HCl - 50 MG Oral Tablet TAKE 1 TABLET BY MOUTH EVERYDAY AT BEDTIME * Quantity: 90 Refills: 1 MARIANO P.A., TAMAR * Start : 22-May-2019 Active Allergies and Adverse Reactions Name Dates [...] Pneumo on: 25-Mar-2010 Fluzone INJ Lot #: [id number] on: 13-Feb-2013 Fluarix Quadrivalent 0.5 ML SUSP Lot #: [id number] on: 05-Mar-2014 Fluzone Quadrivalent 0.5 ML Intramuscular Suspension Lot #: [id number] on: 05-Mar-2015 Prevnar 13 Intramuscular Suspension Lot #: [id number] on: 05-Mar-2015 Fluzone High-Dose SUSP Lot #: [id number] on: 26-Mar-2016 Fluzone Quadrivalent 0.5 ML Intramuscular Suspension Prefilled Syringe Lot #: [id number] on: 28-Feb-2017 Fluzone High-Dose 0.5 ML Intramuscular Suspension Prefilled Syringe Lot #: [id number] on: 20-Feb-2018 Fluzone High-Dose 0.5 ML Intramuscular Suspension Prefilled Syringe Lot #: [id number] on: 23-Apr-2019 Prevnar 13 Intramuscular Suspension Lot #: [id number] on: 23-Apr-2019 Family History Name Dates Details [...] Planned Goals not documented Planned Encounters Appointment; JULIOMannieMS ECHO On: 27-Nov-2019 8:00 Appointment; ODALYS NUCLEAR [...]
--- OUTSIDE RECORDS SUMMARY | 2019-08-20 06:01 | XMS REPORT | Summary of Care ---
Author Author Santiago Cruz, Ginger Vasquez Unknown Address Unknown Phone Unavailable Care Team Providers Care Nut Roaster Name Role Phone MONTSERRAT De La Cruz, TAMAR Unavailable Unavailable MAGALYS Joe, JACOB Unavailable Unavailable BALA Joe, BING Unavailable Unavailable YESI Joe, YAW Unavailable Unavailable Santiago Cruz, Ginger Unavailable Unavailable BALA SNOW AL, BING GLYNN Unavailable Unavailable KESHIA SNIDER AL, FESTUS VICTOR Unavailable Unavailable GUANACO SNOW AL, KRIS Contreras Unavailable Unavailable Yesi SNOW, Yaw Unavailable Unavailable DESTINI VAZQUEZ AL, LUCY Unavailable Unavailable MONTSERRAT WARNER, TAMAR Unavailable [...] mouth twice a day Quantity: 180 YESI M.Paloma, YAW * Start : 06-Jul-2012 Active [...] 1 TABLET DAILY. * Refills: 0 Active Nitroglycerin 0.4 MG Sublingual Tablet Sublingual PLEASE SEE ATTACHED FOR DETAILED DIRECTIONS * Quantity: 25 Refills: 0 YESI M.D., YAW * Start : 25-Sep-2018 Active Famotidine [...] P.A., TAMAR * Start : 26-Jul-2019 Active Tamsulosin HCl - 0.4 MG Oral Capsule TAKE ONE CAPSULE BY MOUTH EVERY DAY WITH DINNER. needs office visit * Quantity: 30 Refills: 0 JACOB DOWELL M.D. * Start : 17-Oct-2013 Active Allergies and Adverse Reactions Name Dates [...] Pneumo on: 25-Mar-2010 Fluzone INJ Lot #: [id number] on: 13-Feb-2013 Fluarix Quadrivalent 0.5 ML SUSP Lot #: [id number] on: 05-Mar-2014 Fluzone Quadrivalent 0.5 ML Intramuscular Suspension Lot #: [id number] on: 05-Mar-2015 Prevnar 13 Intramuscular Suspension Lot #: [id number] on: 05-Mar-2015 Fluzone High-Dose SUSP Lot #: [id number] on: 26-Mar-2016 Fluzone Quadrivalent 0.5 ML Intramuscular Suspension Prefilled Syringe Lot #: [id number] on: 28-Feb-2017 Fluzone High-Dose 0.5 ML Intramuscular Suspension Prefilled Syringe Lot #: [id number] on: 20-Feb-2018 Fluzone High-Dose 0.5 ML Intramuscular Suspension Prefilled Syringe Lot #: [id number] on: 23-Apr-2019 Prevnar 13 Intramuscular Suspension Lot #: [id number] on: 23-Apr-2019 Family History Name Dates Details [...] Planned Goals not documented Planned Encounters Appointment; TAMAR MARIANO P.A. On: 27-Aug-2019 9:00 Appointment; [facility], ECHO On: 27-Nov-2019 8:00 Appointment; BAILEYTONSHORE-MS, NUCLEAR On: 27-Nov-2019 8:30 Appointment; YAW KAY M.D. On: 17-Dec-2019 10:40 Interventions Provided Discussion/Summary* Guideline Used: * Other: * Medication * Reason for Disposition: To speak with staff member in clinic. * Intended Caller Action: * Other: * tasked to Amber at [phone].Daughter requesting a call back. Patient was recently prescribed Levaquin and pharmacy request she check with provider when used with Amiodarone. Instructions Name Dates Details Instructions not documented Encounters Appointment; TAMAR MARIANO P.A. Encounter Diagnosis: Problem not documented On: 15-Aug-2017 8:15 Appointment; DODEI JACOBS M.D. Encounter Diagnosis: Problem not documented [...]
--- OUTSIDE RECORDS SUMMARY | 2019-08-20 06:01 | XMS REPORT | Summary of Care ---
Author Author TAMAR GARCIA Organization Unknown Address Unknown Phone Unavailable Care Team Providers Care Game Designer Name Role Phone TAMAR GARCIA Unavailable Unavailable MAGALYS Joe, JACOB Unavailable Unavailable BALA Joe, BING Unavailable Unavailable YESI Joe, YAW Unavailable Unavailable BALA SNOW IA, BING GLYNN Unavailable Unavailable KESHIA SNIDER UT, FESTUS VICTOR Unavailable Unavailable GUANACO SNOW IA, KRIS Contreras Unavailable Unavailable Yesi SNOW, Yaw [...] Details [U] XRAY FEMUR 2 VWS RIGHT 54411 Date: 03-Aug-2019 History of Hernia Repair Completed History of Lower Back Surgery Completed History of Ankle Surgery Completed History of Cath Placement Of Stent 1 Completed Immunization Name Dates Details Tdap on: 24-Jan-2008 Influenza on: 09-Apr-2008 H1N1 Influenza Inj on: 18-Apr-2009 Pneumo on: 25-Mar-2010 Fluzone INJ Lot #: [id number] on: 13-Feb-2013 Fluarix Quadrivalent 0.5 ML SUSP Lot #: [id number] on: 05-Mar-2014 Fluzone Quadrivalent 0.5 ML Intramuscular Suspension Lot #: [id number] on: 05-Mar-2015 Prevnar 13 Intramuscular Suspension Lot #: [id number] on: 05-Mar-2015 Fluzone High-Dose SUSP Lot #: [id number] on: 26-Mar-2016 Fluzone Quadrivalent 0.5 ML Intramuscular Suspension Prefilled Syringe Lot #: [id number] on: 28-Feb-2017 Fluzone High-Dose 0.5 ML Intramuscular Suspension Prefilled Syringe Lot #: [id number] on: 20-Feb-2018 Fluzone High-Dose 0.5 ML Intramuscular Suspension Prefilled Syringe Lot #: [id number] on: 23-Apr-2019 Prevnar 13 Intramuscular Suspension Lot #: [id number] on: 23-Apr-2019 Family History Name Dates Details [...] of Care Name Dates Details Planned Observations [U] XRAY FEMUR 2 VWS RIGHT 13484 On: 15-Aug-2019 Intent Planned Goals not documented Planned Encounters Appointment; [facility], ECHO On: 27-Nov-2019 8:00 Appointment; [facility], NUCLEAR [...]
[2019-08-20 06:26] LABS: BASOPHILS % 0.2 % (0.0-1.0); EOSINOPHILS % 0.1 % (0.0-6.0); HEMATOCRIT 40.4 % (38.2-49.6); HEMOGLOBIN 12.6 g/dL (14.0-18.0); LYMPHOCYTES # (AUTO) 1.1 (1.0-3.2); LYMPHOCYTES % 10.3 % (18.0-39.1); MEAN CORPUSCULAR HEMOGLOBIN 28.4 pg (28-32); MEAN CORPUSCULAR HGB CONC 31.2 g/dL (31-35); MONOCYTES # (AUTO) 1.1 (0.2-0.8); MONOCYTES % 9.5 % (4.4-11.3); NEUTROPHILS # (AUTO) 8.8 (2.1-6.9); NEUTROPHILS % 79.4 % (38.7-80.0); PLATELET COUNT 230 x10e3/uL (140-360); RED BLOOD COUNT 4.44 x10e6/uL (4.3-5.7); RED CELL DISTRIBUTION WIDTH 15.1 % (11.7-14.4)
[2019-08-20] MEDS ORDERED: ACETAMINOPHEN 325 MG TAB PO ONE (06:30)
[2019-08-20] MEDS ORDERED: PIPER-TAZ 3.375 GM 50 ML IV ONE (06:30)
[2019-08-20] MEDS ORDERED: SODIUM CHLORIDE 0.9% 1000ML 1,000 ML IV ONE (06:30)
[2019-08-20] MEDS ORDERED: ACETAMINOPHEN 325 MG TAB ONE (06:31)
[2019-08-20] MEDS ORDERED: PIPER-TAZ 3.375 GM 50 ML ONE (06:33)
[2019-08-20 06:35] LABS: INR 1.11
[2019-08-20 06:36] LABS: PARTIAL THROMBOPLASTIN TIME 42.8 seconds (23.8-35.5)
[2019-08-20 06:41] LABS: ALBUMIN 2.8 g/dL (3.5-5.0); ALBUMIN/GLOBULIN RATIO 0.7 (0.8-2.0); ANION GAP 11.2 mmol/L (8-16); CALCIUM 9.2 mg/dL (8.4-10.2); CREATININE, SERUM 1.26 mg/dL (0.72-1.25); POTASSIUM 4.2 mmol/L (3.5-5.1)
[2019-08-20 06:48] LABS: CREATINE KINASE MB 0.6 ng/mL (0-5.0)
[2019-08-20] MEDS ORDERED: SODIUM CHLORIDE 0.9% 1000ML 1,000 ML IV SCH (06:57)
[2019-08-20] MEDS ORDERED: ONDANSETRON HCL INJ 2MG/ML 2ML 2 MG/ML VIAL IV PRN (07:00)
[2019-08-20] MEDS ORDERED: AZITHROMYCIN 500MG/SOD CHL 0.9% 250ML BAG IV SCH (07:00)
[2019-08-20] MEDS: AZITHROMYCIN 500MG/NS 250 ML 250 ML IV ONE (07:02)
--- NOTE | 2019-08-20 07:05 | NUR ---
PT REPORTS SOB IS DECREASING. PT CONTINUES TO REPORT CP WHEN TAKING A DEEP BREATH. PT IS SITTING UP IN BED. PT O2 SAT 100 ON 3LPM. PT TOLERATING WELL. WILL CONTINUE TO MONITOR.
--- NOTE | 2019-08-20 07:06 | Diagnostic Imaging Report ---
EXAMINATION: CHEST SINGLE (PORTABLE) INDICATION: sob, chest pain COMPARISON: Chest CT 08/14/2019 FINDINGS: TUBES and LINES: None. LUNGS: Normal lung volumes. Central bronchial wall thickening. Patchy airspace opacities. Prominent interstitial lung markings. Prominent pulmonary vasculature. PLEURA: No pleural effusion or pneumothorax. HEART AND MEDIASTINUM: Cardiac size is moderately enlarged. BONES AND SOFT TISSUES: No acute osseous lesion. Soft tissues are unremarkable. Degenerative changes in the spine and shoulders. UPPER ABDOMEN: No free air under the diaphragm. IMPRESSION: Findings of multifocal bronchopneumonia Moderate cardiomegaly and pulmonary vascular congestion. Signed by: Collin Guzmán DO on 08/20/2019 7:03 AM
[2019-08-20] MEDS ORDERED: AMIODARONE HCL 200 MG TAB ONE (07:20)
[2019-08-20] MEDS ORDERED: SODIUM CHLORIDE 0.9% 500ML 500 ML ONE (07:20)
[2019-08-20] MEDS ORDERED: AMIODARONE HCL 200 MG TAB PO ONE (07:30)
[2019-08-20] MEDS ORDERED: SODIUM CHLORIDE 0.9% 500ML 500 ML IV ONE (07:30)
--- NOTE | 2019-08-20 07:36 | NUR ---
BEDSIDE REPORT GIVEN TO Teodora HERRERA RN DAYSHIFT NURSE.
[2019-08-20] MEDS ORDERED: VANCOMYCIN 1GM/NS 250 ML 250 ML IV ONE (08:00)
[2019-08-20] MEDS ORDERED: LEVALBUTEROL HCL SOLN NEBU 1.25 MG/3 ML NEB INH PRN (09:45)
[2019-08-20] MEDS ORDERED: BENZONATATE 100 MG CAP PO PRN (09:45)
[2019-08-20] MEDS ORDERED: NITROGLYCERIN 0.4 MG SUBL SL PRN (09:45)
--- NOTE | 2019-08-20 11:10 | Diagnostic Imaging Report ---
EXAM: CT Chest WITHOUT intravenous contrast 08/20/2019 9:38 AM INDICATION: Pneumonia COMPARISON: Chest radiograph of earlier the same day, chest CT 08/14/2019 TECHNIQUE: Chest was scanned utilizing a multidetector helical scanner from the lung apex through the level of the adrenal glands without administration of IV contrast. Coronal and sagittal reformations were obtained. Routine protocol was performed. IV CONTRAST: None RADIATION DOSE: Total DLP: 528 mGy*cm. Dose modulation, iterative reconstruction, and/or weight based adjustment of the mA/kV was utilized to reduce the radiation dose to as low as reasonably achievable. COMPLICATIONS: None FINDINGS: LINES/ TUBES: None. LUNGS AND AIRWAYS: Diffuse bronchial wall thickening. Smooth interlobular septal thickening, consistent with interstitial pulmonary edema. Bibasilar dependent subsegmental atelectasis. Increased interstitial opacities, predominantly peripherally Airways are normal. PLEURA: Small bilateral pleural effusions. No pneumothorax. HEART AND MEDIASTINUM: The thyroid gland is normal. No supraclavicular, axillary, mediastinal, or hilar lymphadenopathy. Multichamber cardiomegaly. New prominent pericardial effusion. Atherosclerotic calcifications involve the coronary arteries, thoracic aorta, and proximal great vessels.. The main pulmonary artery is enlarged to 3.9 cm. UPPER ABDOMEN: Status post cholecystectomy. Sliding hiatal hernia. Diverticulosis. BONES: No acute osseous injury. SOFT TISSUES: Unremarkable. IMPRESSION: No lobar pneumonia. Diffuse bronchial wall thickening can be seen in the setting of bronchitis. Increased interstitial opacities, predominantly peripherally, can be seen with atypical infection or alternatively could be related to chronic interstitial lung disease. New prominent pericardial effusion. Smooth interlobular septal thickening consistent with interstitial pulmonary edema. Bilateral pleural effusions and bibasilar subsegmental atelectasis. Signed by: Shashi Riddle MD on 08/20/2019 11:08 AM
[2019-08-20] MEDS: IPRATROPIUM BROMIDE 0.02% 2.5 ML NEB NEB SCH ×3 (11:30→20:40)
--- NOTE | 2019-08-20 13:16 | Consultation ---
DATE OF CONSULTATION: 08/20/2019 Cardiology Consult. HISTORY OF PRESENT ILLNESS: Mr. Thomas Acuña is an 83-year-old male with primary history of hypertension, CAD with previous stents in 2006, atrial fibrillation with Watchman procedure done in 2016, admitted complaining of shortness of breath, which associated with chest pressure, which started 24 hours prior to admission. The patient's shortness of breath is exacerbated with deep breathing, but denies dizziness, nausea, or vomiting. The patient also denies any palpitations. The patient is known to us from previous admission, was discharged two days ago. He was here, treated for pneumonia and low-grade fever. Cardiology did hold cardiac workup during his stay. Had a nuclear test that was negative and cardiac enzymes were negative as well. PAST MEDICAL HISTORY: Hypertension, CAD with previous stents, atrial fibrillation with Watchman in 2016, and osteoarthritis. HOME MEDICATIONS: The patient is taking aspirin 325 daily, amiodarone 200 mg p.o. daily, carvedilol 6.25 mg daily, atorvastatin 20 mg daily, levothyroxine 175 mcg p.o. daily, lisinopril 2.5 mg daily. PHYSICAL EXAMINATION: VITAL SIGNS: 108/76 blood pressure, pulse is 97, respirations 20, and oxygen saturations 100% on 3 L nasal cannula. GENERAL APPEARANCE: The patient is well developed, well nourished, in no acute distress. HEENT: Head is normocephalic and atraumatic. Eyes, pupils equally round and reactive to light and accommodation. Sclerae nonicteric. Ears are normal. Oral cavity, mucosa is moist. Throat is clear. NECK AND THYROID: Neck is supple. Full range of motion. No cervical lymphadenopathy. SKIN: Warm and dry. CARDIOVASCULAR: Regular rate and rhythm. No murmurs heard. LUNGS: Diminished to lower lobes bilaterally. EXTREMITIES: No edema. NEUROLOGIC: Nonfocal. Motor strength is normal upper and lower extremities. Sensory exam is intact. IMPRESSION AND PLAN: The patient is an 83-year-old male admitted with shortness of breath, likely lung related infection. The patient's EKG also shows sinus tachycardia with no ST-T changes and troponin shows no evidence of ischemia. The patient had a complete cardiac workup at the last visit, which was in August of 2019 last week. EF on echocardiogram is 48% and nuclear stress test shows no evidence of ischemia. PLAN: 1. Monitor on telemetry and closely monitor hemodynamics. 2. Continue on AV abdirashid agents/antiarrhythmic amiodarone and carvedilol for rhythm and rate control. 3. Continue with aspirin, amiodarone, carvedilol, atorvastatin, and anticoagulation Lovenox. 4. Further recommendations will follow according to the patient's clinical course. Thank you for this consultation. Dictated by Radha Palacios NP MD JAMES Pond/OSMEL /[id number]
[2019-08-20 14:17] LABS: CREATINE KINASE MB 0.8 ng/mL (0-5.0)
[2019-08-20] MEDS: PIPER-TAZ 3.375 GM 50 ML IV SCH ×2 (14:17→21:23)
[2019-08-20] MEDS: LEVALBUTEROL HCL SOLN NEBU 1.25 MG/3 ML NEB INH SCH ×2 (14:20→20:40)
[2019-08-20] MEDS ORDERED: ENOXAPARIN SOD INJ 40 MG/0.4 ML SYR SC SCH (17:00)
[2019-08-20] MEDS: CARVEDILOL 3.125 MG TAB PO SCH (17:26)
[2019-08-20] MEDS: TAMSULOSIN HCL 0.4 MG CAP PO SCH (17:26)
[2019-08-20] MEDS: FAMOTIDINE 20 MG TAB PO SCH (17:26)
[2019-08-20] MEDS: SULFASALAZINE 500 MG TAB PO SCH ×2 (17:27→20:09)
[2019-08-20] MEDS ORDERED: FUROSEMIDE INJ 10 MG/ML 4 ML VIAL IV ONE (17:30)
[2019-08-20] MEDS: ENOXAPARIN INJ 80 MG/0.8 ML SYR SC SCH (17:45)
[2019-08-20] MEDS: ACETAMINOPHEN 325 MG TAB PO PRN (18:03)
--- NOTE | 2019-08-20 20:29 | Diagnostic Imaging Report ---
CT chest pulmonary embolism protocol CPT code: 59293 INDICATION: Chest pain, shortness of breath ^Possible Pulmonary Embolism TECHNIQUE: Thin collimation axial images obtained through the level of the pulmonary arteries with additional imaging through the chest following the uneventful administration of 100 cc of low osmolar, nonionic intravenous contrast. Images reconstructed into coronal and sagittal MIPs for complete evaluation of the tortuous and overlapping pulmonary vascular structures and to reduce patient radiation dose. RADIATION DOSE: Total DLP: 565.88 mGy*cm Estimated effective dose: (DLP x 0.015 x size factor) mSv CTDIvol has been reviewed. It is below the limits set by the Radiation Protocol Committee (RPC). Dose reduction techniques used: Automated exposure control, adjustment of the mAs and/or kVp according to patient size, standardized low-dose protocol, and/or iterative reconstruction technique. COMPARISON: CT chest 1045 hours. FINDINGS: Pulmonary artery: Images are mildly motion degraded. No filling defects are appreciated within the main, left, right, lobar or visualized segmental pulmonary arteries to suggest embolism. The main pulmonary artery measures 4.1 cm in diameter Aorta: The thoracic aorta is not aneurysmal. No evidence for dissection. Calcifications are present throughout Lymph nodes: No enlarged axillary, supraclavicular lymph nodes. Multiple subcentimeter mediastinal and hilar lymph nodes. Subcarinal lymph nodes are increased in number and measure up to 12 mm. Thyroid: Normal in size without mass in the visualized parenchyma. Mediastinum: Pericardial effusion measures 26 mm with circumferential enhancement. There is an occlusion device in the left atrial appendage. Heavy calcifications throughout the coronary arteries. There is a small hiatal hernia Lungs: Right Lung: Diffuse hyperinflation. Patchy atelectasis in the upper and lower lobes. Diffuse bronchial wall thickening without bronchiectasis. The reticulonodular opacities in the upper lobe have improved. Left Lung: Diffuse hyperinflation. Posterior lower lobe atelectasis. Diffuse bronchial wall thickening. Trachea: Mild tracheobronchomalacia. Calcifications throughout the tracheobronchial tree. Pleura: Posterior layering right pleural effusion measures 4.4 cm. Posterior layering left pleural effusion measures 4.1 cm. No enhancement of the visceral or parietal pleura. No pneumothorax. Abdomen: The gallbladder is absent. No mass or lymphadenopathy in the visualized portions. The spleen is mildly enlarged measuring 14 cm. Bones: Flowing osteophytes of the thoracic spine suggestive of DISH. No compression deformities. No destructive lesions. IMPRESSION: 1. No evidence of pulmonary embolus or aortic dissection. Enlarged main pulmonary artery suggestive of pulmonary artery hypertension. 2. Large pericardial effusion. Pericardiocentesis is recommended. 3. COPD, bilateral pleural effusions, and bibasilar atelectasis. Improved reticulonodular opacities in the right upper lobe. 4. Mildly prominent mediastinal lymph nodes may be reactive to an infectious/infiltrate process. 5. Mild splenomegaly. Signed by: Dr. Adam Roberto MD on 08/20/2019 8:26 PM
[2019-08-20] MEDS ORDERED: IOPAMIDOL 370 MG/ML 200 ML INFUS..BTL INJ ONE (22:29)
[2019-08-20] MEDS ORDERED: SODIUM CHLORIDE 0.9% 50ML 50 ML ONE (22:29)
[2019-08-20 22:53] LABS: CREATINE KINASE 58 IU/L (30-200)
[2019-08-20 23:50] LABS: CREATINE KINASE MB < 1.00 ng/mL (0-4.3)
--- NOTE | 2019-08-21 00:36 | NUR ---
Patient c/o worsening shortness of breath at this time. Dr. Jermaine Toledo paged. Awaiting call back.
--- NOTE | 2019-08-21 00:37 | NUR ---
O2 levels remain stable. No adventious breath sounds auscultated. No JVD or muffled heart sounds auscultated. Dr. Toledo paged to discuss CT results.
--- NOTE | 2019-08-21 00:48 | NUR ---
Spoke to Dr. Toledo regarding patient status and results. New orders obtained.
[2019-08-21] MEDS: LEVALBUTEROL HCL SOLN NEBU 1.25 MG/3 ML NEB INH SCH ×3 (01:30→13:01)
[2019-08-21] MEDS: IPRATROPIUM BROMIDE 0.02% 2.5 ML NEB NEB SCH ×3 (01:30→13:01)
--- NOTE | 2019-08-21 01:57 | NUR ---
Patient states he is breathing better on Bipap at this time. Will continue to monitor patient closely.
--- NOTE | 2019-08-21 03:21 | NUR ---
Per patient request, patient taken off of BiPAP at this time. No distress noted. RR even and unlabored. Will continue to monitor patient.
--- NOTE | 2019-08-21 04:17 | NUR ---
Patient states he is breathing better at this time. No distress noted.
[2019-08-21 04:37] LABS: BASOPHILS % 0.1 % (0.0-1.0); EOSINOPHILS % 0.1 % (0.0-6.0); HEMATOCRIT 36.6 % (38.2-49.6); HEMOGLOBIN 11.5 g/dL (14.0-18.0); LYMPHOCYTES # (AUTO) 0.8 (1.0-3.2); LYMPHOCYTES % 4.9 % (18.0-39.1); MEAN CORPUSCULAR HEMOGLOBIN 28.3 pg (28-32); MEAN CORPUSCULAR HGB CONC 31.4 g/dL (31-35); MEAN CORPUSCULAR VOLUME 89.9 fL (81-99); MONOCYTES # (AUTO) 1.3 (0.2-0.8); MONOCYTES % 7.6 % (4.4-11.3); NEUTROPHILS % 86.8 % (38.7-80.0); PLATELET COUNT 172 x10e3/uL (140-360); RED BLOOD COUNT 4.07 x10e6/uL (4.3-5.7); RED CELL DISTRIBUTION WIDTH 15.2 % (11.7-14.4)
[2019-08-21] MEDS ORDERED: ASPIRIN 81 MG CHEW TAB PO ONE (05:00)
[2019-08-21 05:02] LABS: ALBUMIN 2.4 g/dL (3.5-5.0); ALBUMIN/GLOBULIN RATIO 0.7 (0.8-2.0); ANION GAP 10.8 mmol/L (8-16); CALCIUM 8.4 mg/dL (8.4-10.2); CREATININE, SERUM 1.16 mg/dL (0.72-1.25); POTASSIUM 3.8 mmol/L (3.5-5.1)
--- NOTE | 2019-08-21 05:12 | NUR ---
Repeat EKG done at this time due to bedside telemetry changes noted. Patient denies chest pain at this time. ER MD signed EKG and stated no STEMI. Dr. Toledo paged to notify. Awaiting call back. Will continue to monitor patient closely.
[2019-08-21] MEDS: PIPER-TAZ 3.375 GM 50 ML IV SCH ×2 (05:29→14:12)
[2019-08-21] MEDS: ACETAMINOPHEN 325 MG TAB PO PRN (05:30)
--- NOTE | 2019-08-21 05:30 | NUR ---
DR. CORAZON MELCHOR RETURNED CALL, REQUEST STAT ECHO FOR THIS AM
[2019-08-21] MEDS: ENOXAPARIN INJ 80 MG/0.8 ML SYR SC SCH (05:54)
[2019-08-21] MEDS ORDERED: LEVOTHYROXINE SODIUM 75 MCG TAB PO SCH (06:00)
[2019-08-21] MEDS ORDERED: LEVOTHYROXINE SODIUM 100 MCG TAB PO SCH (06:00)
--- NOTE | 2019-08-21 06:00 | NUR ---
DR. Paloma MELCHOR PAGED TO INFORM OF VTACH (X5 BEATS)
--- NOTE | 2019-08-21 06:00 | NUR ---
5 BEAT RUN OF VTACH NOTED TO FAMILY CENTERED SPECIALIST; PT DENIES ANY ABNORMAL S/S AT THIS TIME; REMAINS ATTACHED TO BS/FAMILY CENTERED SPECIALIST
--- NOTE | 2019-08-21 07:14 | NUR ---
Report given to MODESTA Bass. Dr. Toledo notified of run of vtach at 0554 and strip provided to him. No new orders at this time.
--- NOTE | 2019-08-21 07:19 | NUR ---
Dr. Toledo stated he spoke to Dr. Shafer and to transfer patient downtown. diversified crops supervisor notified.
--- NOTE | 2019-08-21 07:23 | NUR ---
Spoke to Dr. López regarding Dr. Shafer wanted patient to be transferred downtown. He stated it was ok to transfer patient.
[2019-08-21 07:40] LABS: CREATINE KINASE 50 IU/L (30-200)
[2019-08-21 07:45] LABS: CREATINE KINASE MB < 1.00 ng/mL (0-4.3)
[2019-08-21] MEDS ORDERED: AZITHROMYCIN 500MG/NS 250 ML 250 ML IV SCH (08:00)
[2019-08-21] MEDS ORDERED: FUROSEMIDE INJ 10 MG/ML 4 ML VIAL IV ONE (08:15)
[2019-08-21] MEDS: CARVEDILOL 3.125 MG TAB PO SCH (08:15)
[2019-08-21] MEDS: FAMOTIDINE 20 MG TAB PO SCH (08:17)
[2019-08-21] MEDS: TAMSULOSIN HCL 0.4 MG CAP PO SCH (08:17)
[2019-08-21] MEDS: SULFASALAZINE 500 MG TAB PO SCH (08:17)
--- NOTE | 2019-08-21 08:30 | NUR ---
SPOKE TO DR. Tere COLE MD WILL CALL TRANSFER CENTER FOR TO DR. GUPTA
[2019-08-21] MEDS ORDERED: NON-FORMULARY MEDICATION (Mirabegron (Myrbetriq) 50 MG) PO SCH (09:00)
[2019-08-21] MEDS ORDERED: CYANOCOBALAMIN 1,000 MCG TAB PO SCH (09:00)
[2019-08-21] MEDS ORDERED: AMIODARONE HCL 200 MG TAB PO SCH (09:00)
[2019-08-21] MEDS ORDERED: FERROUS SULFATE 325 MG TAB PO SCH (09:00)
[2019-08-21] MEDS ORDERED: FOLIC ACID/CYANOCOB/PYRIDOXINE TAB PO SCH (09:00)
[2019-08-21] MEDS ORDERED: ASPIRIN 325 MG TAB EC PO SCH (09:00)
[2019-08-21] MEDS ORDERED: FUROSEMIDE INJ 10 MG/ML 2 ML VIAL IV SCH (12:00)
--- NOTE | 2019-08-21 12:32 | History and Physical ---
CHIEF COMPLAINT: Increasing shortness of breath. HISTORY OF PRESENT ILLNESS: The patient is an 83-year-old male with recent bronchitis, acute exacerbation of COPD, and congestive heart failure exacerbation. The patient did well within 2 to 3 days. The patient was discharged home. He had a negative stress test. He did better. No fever. Matter of fact that now he came in with increasing shortness of breath and also with fever. The patient did have a temperature of 101.7 rectal on admission. He was tachycardic. Imaging shown that the patient has had no pulmonary embolism or aortic dissection, but he has a large pericardial effusion. Pericardiocentesis is recommended by radiologist. On CT scan, also found to have COPD with bilateral pleural effusion, bilateral atelectasis and also reticulonodular opacity in the right upper lobe and vascular congestion. Along with that the patient also has bilateral pleural effusion. The patient had echocardiogram confirmed the pericardial effusion. The patient is pending for transfer to the [facility] for the pericardiocentesis. PAST MEDICAL HISTORY: Including COPD, hypertension, coronary artery disease with previous stent, atrial fibrillation, had a Watchman procedure back in 2016, osteoarthritis, and hypothyroidism. SOCIAL HISTORY: The patient was an ex-smoker. He denies alcohol use. No regular drug. ALLERGIES: TO DULOXETINE AND CEFUROXIME. HOME MEDICATIONS: The patient is on aspirin, amiodarone, Coreg, atorvastatin, levothyroxine, lisinopril, and recent Levaquin, Tessalon Perles and furosemide. PHYSICAL EXAMINATION: VITAL SIGNS: Temperature currently 99.7, previously 101.7, pulse rate is 96, respirations 22, and blood pressure 105/61. GENERAL: The patient seems comfortable. He is not in any distress. HEENT: Normocephalic and atraumatic. He is anicteric. NECK: Supple grossly. PULMONARY: Diminished breath sounds bilaterally with coarses and rhonchi with diminished breath sounds at the bases. CARDIOVASCULAR: S1 and S2. Atrial fibrillation, rate controlled now. ABDOMEN: Soft and non-distention. EXTREMITIES: No gross cyanosis or edema. NEUROLOGIC: No gross focal deficit. LABORATORY DATA: Sodium is 136, potassium 4.2, chloride 100, bicarb 29, BUN 12, creatinine 1.3, and glucose is 95. BNP is 250. WBC 17.3, hemoglobin 11.5, hematocrit 36.6, and platelet is 172. Coagulation; INR is 1.1 and PTT is 42.8. Serology, influenza A and B negative. CT scan of the chest as mentioned above. IMPRESSION: 1. Pericardial effusion. 2. Acute bronchitis with acute exacerbation of chronic obstructive pulmonary disease. 3. Bilateral pleural effusion. 4. Atrial fibrillation, rate controlled now. 5. Fever. 6. Leukocytosis. PLAN: Continue with antibiotics. [facility] pending. The patient is otherwise stable. The patient will need pericardial window with pericardiocentesis. The patient will continue with antibiotics. He will get electrolyte check. Lasix 40 mg IV twice a day. Watch the patient diuresis and correct electrolyte if needed. MD ROMAN Pearson/MODL /[id number]
[2019-08-21 13:10] VITALS: BP 111/68
--- NOTE | 2019-08-21 13:19 | NUR ---
[facility] called for transport to [facility] eta 30-45 min at 1319
--- NOTE | 2019-08-24 02:49 | Discharge Summary ---
FINAL DIAGNOSES: 1. Large pericardial effusion. The patient transferred to [facility] for pericardiocentesis. 2. Acute bronchitis with acute exacerbation of chronic obstructive pulmonary disease. 3. Bilateral pleural effusion secondary to atrial fibrillation with congestive heart failure. 4. Fever, leukocytosis resolved. SUMMARY: The patient is an 83-year-old male with recent bronchitis with acute exacerbation with COPD and congestive heart failure exacerbation, came back within a few days for fever and worsening acute bronchitis. The patient also has new development with large pericardial effusion. Echocardiogram was pending at the time of his transfer to the [facility]. The patient was an ex-smoker. The patient was stable. He was giving diuretics with furosemide and he felt much better. Atrial fibrillation, rate controlled. He has history of Watchman procedures. The patient was stable to transfer to the [facility] for Dr. Eduardo Shafer, who consulted [facility] surgeon for a pericardial window. The patient is otherwise stable on transfer. MD ROMAN Pearson/OSMEL /[id number]
== END 2019-08-21 15:29 | disposition other institution (70) ==
LOC: ER 05:54 → UNDOADMIN 06:57 → ERHOLD 06:57
DX: J15.9 Unspecified bacterial pneumonia (principal); J44.1 Chronic obstructive pulmonary disease with (acute) exacerbation; R18.8 Other ascites; J20.9 Acute bronchitis, unspecified; I48.91 Unspecified atrial fibrillation; E03.9 Hypothyroidism, unspecified; M19.90 Unspecified osteoarthritis, unspecified site; Z85.46 Personal history of malignant neoplasm of prostate; Z82.49 Family history of ischemic heart disease and other diseases of the circulatory system; R00.0 Tachycardia, unspecified; J44.0 Chronic obstructive pulmonary disease with (acute) lower respiratory infection; I25.10 Atherosclerotic heart disease of native coronary artery without angina pectoris; Z95.5 Presence of coronary angioplasty implant and graft; Z87.891 Personal history of nicotine dependence; Z88.8 Allergy status to other drugs, medicaments and biological substances; I31.3 Pericardial effusion (noninflammatory); I11.0 Hypertensive heart disease with heart failure; I50.9 Heart failure, unspecified
CPT/HCPCS: 36415 ×2; 71045; 71250; 71260; 80053 ×2; 82550 ×2; 82553 ×2; 83605; 83735 ×2; 83880; 84484 ×2; 85025 ×2; 85610; 85730; 87040; 87400; 93005 ×2; 93308; 94640 ×2; 94660; 96375; 96376; 99284; J0456 ×2; J1650 ×2; J1940 ×2; J2543 ×2; J3370; J7030; J7040; Q9967; 96374

== ENCOUNTER 2020-04-18 18:20 | Observation (INO) | payer MEDICARE ==
[~2020-04-18] VITALS: Ht 185.4 cm; Wt 87.7 kg
--- NOTE | 2020-04-18 19:42 | Emergency Department Note ---
History of Present Illnes History of Present Illness Chief Complaint: Abdominal Complaints History of Present Illness This is a 84 year old male . Chief Complaint Comment PATIENT IN FROM HOME WITH COMPLAINTS OF DIARRHEA X 3 DAYS; STATES HE IS ALSO HAVING ABDOMINAL AND RIB PAIN RATED 10/10. PATIENT DEN IES NAUSEA OR VOMITING, DENIES BURNING OR PAIN WITH URINATION. PATIENT ALERT AND ORIENTED, RESP EVEN AND NONLABORED, APPEARS IN NO DISTRESS Historian: Patient, Family Member Onset (how long ago): week(s) Radiation: Reports non-radiation Onset quality: gradual Duration (how long): week(s) Timing of current episode: constant Progression: worsening Associated symptoms: Reports loss of appetite Past Medical/Family History Physician Review I have reviewed the patient's past medical and family history. Any updates have been documented here. Past Medical History Recent Fever: No Clinical Suspicion of Infectio: No New/Unexplained Change in Ment: No Past Medical History: Hypertension, A-Fib, Hypothyroidism, Cancer, Osteoarthritis Other Medical History: PROSTATE CA Past Surgical History: Cholecysctectomy, Knee Replacement, Hernia Repair Other Surgery: CARDIAC STENTS X2 SLIPPED DISK W/ STEROID INJECTIONS WATCHMAN DEVICE RT KNEE REPLACEMENT BROKEN RT FEMUR Social History Physically hurt or threatened: No Other Last Tetanus: OOD Review of Systems Review of Systems Constitutional: Reports no symptoms EENTM: Reports no symptoms Cardiovascular: Reports no symptoms Respiratory: Reports no symptoms Gastrointestinal: Reports as per HPI, Reports abdominal pain, Reports diarrhea Genitourinary: Reports no symptoms Musculoskeletal: Reports no symptoms Integumentary: Reports no symptoms Neurological: Reports no symptoms Psychological: Reports no symptoms Endocrine: Reports no symptoms Hematological/Lymphatic: Reports no symptoms Physical Exam Related Data Allergies: Coded Allergies: cefuroxime (Verified Allergy, Unknown, 03/08/16) duloxetine (Verified Allergy, Unknown, 03/08/16) Triage Vital Signs Vital Signs Date Time Temp Pulse Resp B/P (MAP) Pulse Ox O2 Delivery O2 Flow Rate FiO2 04/18/20 18:39 97.2 71 16 124/58 98 Room Air Vital signs reviewed: Yes Physical Exam CONSTITUTIONAL Constitutional: Present well-developed, Present well-nourished HENT HENT: Present normocephalic, Present atraumatic, Present oropharynx clear/moist, Present nose normal HENT L/R: Present left ext ear normal, Present right ext ear normal EYES Eyes: Reports PERRL, Reports conjunctivae normal NECK Neck: Present ROM normal PULMONARY Pulmonary: Present effort normal, Present breath sounds normal CARDIOVASCULAR Cardiovascular: Present regular rhythm, Present heart sounds normal, Present capillary refill normal, Present normal rate GASTROINTESTINAL Abdominal: Present soft, Present nontender, Present bowel sounds normal GENITOURINARY Genitourinary: Present exam deferred SKIN Skin: Present warm, Present dry MUSCULOSKELETAL Musculoskeletal: Present ROM normal NEUROLOGICAL Neurological: Present alert, Present oriented x 3, Present no gross motor or sensory deficits PSYCHOLOGICAL Psychological: Present mood/affect normal, Present judgement normal Results Laboratory Lab results reviewed: Yes Laboratory comments Laboratory Tests Test 04/18/20 20:12 White Blood Count 8.16 x10e3/uL (4.8-10.8) Red Blood Count 4.89 x10e6/uL (4.3-5.7) Hemoglobin 14.6 g/dL (14.0-18.0) Hematocrit 44.9 % (38.2-49.6) Mean Corpuscular Volume 91.8 fL (81-99) Mean Corpuscular Hemoglobin 29.9 pg (28-32) Mean Corpuscular Hemoglobin Concent 32.5 g/dL (31-35) Red Cell Distribution Width 15.9 % (11.7-14.4) Platelet Count 121 x10e3/uL (140-360) Neutrophils (%) (Auto) 82.1 % (38.7-80.0) Lymphocytes (%) (Auto) 8.7 % (18.0-39.1) Monocytes (%) (Auto) 7.8 % (4.4-11.3) Eosinophils (%) (Auto) 1.0 % (0.0-6.0) Basophils (%) (Auto) 0.2 % (0.0-1.0) Neutrophils # (Auto) 6.7 (2.1-6.9) Lymphocytes # (Auto) 0.7 (1.0-3.2) Monocytes # (Auto) 0.6 (0.2-0.8) Eosinophils # (Auto) 0.1 (0.0-0.4) Basophils # (Auto) 0.0 (0.0-0.1) Absolute Immature Granulocyte (auto 0.02 x10e3/uL (0-0.1) Sodium Level 135 mmol/L (136-145) Potassium Level 4.7 mmol/L (3.5-5.1) Chloride Level 95 mmol/L (98-107) Carbon Dioxide Level 28 mmol/L (22-29) Anion Gap 16.7 mmol/L (8-16) Blood Urea Nitrogen 33 mg/dL (7-26) Creatinine 2.10 mg/dL (0.72-1.25) Estimat Glomerular Filtration Rate 30 ML/MIN (60-) BUN/Creatinine Ratio 16 (6-25) Glucose Level 90 mg/dL (74-118) Calcium Level 9.4 mg/dL (8.4-10.2) Total Bilirubin 1.2 mg/dL (0.2-1.2) Aspartate Amino Transf (AST/SGOT) 26 IU/L (5-34) Alanine Aminotransferase (ALT/SGPT) 12 IU/L (0-55) Alkaline Phosphatase 98 IU/L (40-150) Creatine Kinase 257 IU/L (30-200) Creatine Kinase MB 2.80 ng/mL (0-5.0) Troponin I 0.011 ng/mL (0-0.300) Total Protein 7.6 g/dL (6.5-8.1) Albumin 3.6 g/dL (3.5-5.0) Globulin 4.0 g/dL (2.3-3.5) Albumin/Globulin Ratio 0.9 (0.8-2.0) Imaging Imaging results reviewed: Yes Impressions IMPRESSION: 1. Mild wall thickening of the descending and rectosigmoid colon, could be due to underdistention versus infectious/inflammatory colitis in the appropriate clinical context. 2. Colonic diverticulosis without evidence of diverticulitis. 3. Moderate size hiatal hernia. Assessment & Plan Medical Decision Making MDM 84-year-old male arrives to the ED with complaints of diarrhea several. Patient admitted for IV antibiotics and observation Assessment & Plan Final Impression: (1) Colitis Depart Disposition: ADMITTED Last Vital Signs Date Time Temp Pulse Resp B/P (MAP) Pulse Ox O2 Delivery O2 Flow Rate FiO2 04/18/20 18:39 97.2 71 16 124/58 98 Room Air Home Meds Reported Medications Levothyroxine Sodium (LEVOTHYROXINE SODIUM) 112 Mcg Tablet, 175 MCG PO DAILY@0600, #30 TAB 08/15/19 Folic Acid/Cyanocob/Pyridoxine (NEPHRO-CHASTITY TABLET) 1 Ea Tab, 1 EACH PO DAILY, #30 TAB 08/15/19 Atorvastatin Calcium (ATORVASTATIN CALCIUM) 20 Mg Tablet, 20 MG PO HS, #30 TAB 08/15/19 Sulfasalazine (SULFASALAZINE) 500 Mg Tab, 500 MG PO TID, #30 TAB 08/15/19 Famotidine (FAMOTIDINE) 20 Mg Tab, 20 MG PO BID, #30 TAB 20 Lisinopril (LISINOPRIL) 2.5 Mg Tablet, 2.5 MG PO DAILY, #30 TAB 08/15/19 Carvedilol (CARVEDILOL) 3.125 Mg Tablet, 6.25 MG PO BID, #60 TAB 08/15/19 Tamsulosin Hcl* (FLOMAX*) 0.4 Mg Cap, 0.4 MG PO BID, #30 CAP 08/15/19 Amiodarone Hcl (AMIODARONE HCL) 200 Mg Tablet, 200 MG PO DAILY 08/15/19 Aspirin (ASPIRIN ENTERIC COATED) 325 Mg Tabec, 325 MG PO DAILY, #30 TAB 08/15/19 Nitroglycerin (NITROGLYCERIN) 0.4 Mg Tab.subl, 0.4 MG SL Q5MIN PRN for CHEST PAIN, TAB 08/15/19 Cyanocobalamin (Vitamin B-12) (VITAMIN B-12) 1,000 Mcg Tablet.er, 1000 MCG PO DAILY 08/15/19 Vit A/Vit C/Vit E/Zinc/Copper (PRESERVISION AREDS SOFTGEL) 1 Each Capsule, PO BID 08/15/19 Mirabegron (MYRBETRIQ) 50 Mg Tab.er.24h, 50 MG PO DAILY 08/15/19 Ferrous Sulfate (IRON) 325 Mg Tablet, 325 MG PO DAILY 08/15/19 Mu-Vits-Min Th/Lycopene/Lutein (CENTRUM SILVER TABLET) 1 Each Tablet, PO DAILY 08/15/19 LUC BOYLE DO Apr 18, 2020 19:41
[2020-04-18 20:33] LABS: BASOPHILS % 0.2 % (0.0-1.0); EOSINOPHILS # (AUTO) 0.1 (0.0-0.4); HEMATOCRIT 44.9 % (38.2-49.6); HEMOGLOBIN 14.6 g/dL (14.0-18.0); LYMPHOCYTES # (AUTO) 0.7 (1.0-3.2); LYMPHOCYTES % 8.7 % (18.0-39.1); MEAN CORPUSCULAR HEMOGLOBIN 29.9 pg (28-32); MEAN CORPUSCULAR HGB CONC 32.5 g/dL (31-35); MEAN CORPUSCULAR VOLUME 91.8 fL (81-99); MONOCYTES # (AUTO) 0.6 (0.2-0.8); MONOCYTES % 7.8 % (4.4-11.3); NEUTROPHILS # (AUTO) 6.7 (2.1-6.9); NEUTROPHILS % 82.1 % (38.7-80.0); PLATELET COUNT 121 x10e3/uL (140-360); RED BLOOD COUNT 4.89 x10e6/uL (4.3-5.7); RED CELL DISTRIBUTION WIDTH 15.9 % (11.7-14.4)
[2020-04-18 20:52] LABS: ALBUMIN 3.6 g/dL (3.5-5.0); ALBUMIN/GLOBULIN RATIO 0.9 (0.8-2.0); ANION GAP 16.7 mmol/L (8-16); CALCIUM 9.4 mg/dL (8.4-10.2); CREATININE, SERUM 2.1 mg/dL (0.72-1.25); POTASSIUM 4.7 mmol/L (3.5-5.1)
[2020-04-18 20:58] LABS: CREATINE KINASE MB 2.8 ng/mL (0-5.0)
--- OUTSIDE RECORDS SUMMARY | 2020-04-18 21:30 | XMS REPORT | Clinical Summary ---
Author Author JANES [facility] Address Unknown Phone Unavailable Care Team Providers Care Leak Hunter Name Role Phone PeeblesGretta rosenberg 31 Unavailable Pardeep Romero PCP Allergies No Known Allergies Medications End Date Status Medication Sig Dispensed Refills Start Date 09/12/2020 Active Benzocaine-menthol Place 1 30 tablet 0 02 (CHLORASEPTIC) 6-10 mg lozenge 0 lozenge inside cheek every 2 (two) hours as needed. 09/13/2019 Discontinued (Stop Taking at Discharge) amiodarone (PACERONE) 200 Take 200 mg 0 /202 MG tabletIndications: by mouth 0 cardioversion of atrial daily. fibrillation 09/06/2019 Discontinued (Stop Taking at Discharge) aspirin 325 MG EC tablet Take 325 mg 3 07/26 by mouth 0 daily. 09/13/2019 Discontinued (Stop Taking at Discharge) atorvastatin (LIPITOR) 20 Take 20 mg by 1 07/14 MG tablet mouth daily. 0 09/06/2019 Discontinued (Stop Taking at Discharge) carvediloL (COREG) 6.25 Take 6.25 mg 0 MG tablet by mouth 2 0 (two) times daily. 09/06/2019 Discontinued (Stop Taking at Discharge) famotidine (PEPCID) 20 MG Take 20 mg by 1 05/15 0 tablet mouth 2 (two) 9 times daily. 09/06/2019 Discontinued (Stop Taking at Discharge) folic acid (FOLVITE) 1 MG Take 1,000 3 05/15 tablet mcg by mouth 9 daily. 09/06/2019 Discontinued (Stop Taking at Discharge) furosemide (LASIX) 20 MG Take 20 mg by 0 08/15 tablet mouth daily. 0 09/13/2019 Discontinued (Stop Taking at Discharge) levothyroxine (SYNTHROID, Take 175 mcg 0 07/15 LEVOTHROID) 175 MCG by mouth 0 tablet daily. 09/06/2019 Discontinued (Stop Taking at Discharge) lisinopriL Take 2.5 mg 3 (PRINIVIL,ZESTRIL) 2.5 MG by mouth 0 tablet daily. 09/06/2019 Discontinued (Stop Taking at Discharge) MYRBETRIQ 50 mg Tb24 ER Take 50 mg by 3 tablet mouth daily. 0 09/13/2019 Discontinued (Stop Taking at Discharge) tamsulosin (FLOMAX) 0.4 Take 0.4 mg 3 mg Cap 24 hr capsule by mouth 0 nightly. 09/06/2019 Discontinued (Stop Taking at Discharge) traZODone (DESYREL) 50 MG Take 50 mg by 0 05/13 tablet mouth 9 nightly. 09/13/2019 Discontinued (Stop Taking at Discharge) testosterone cypionate Inject 1 mL 3 (DEPOTESTOTERONE intramuscular 0 CYPIONATE) 200 mg/mL ly as injection directed Inject 1 ml every 10 days. 09/13/2019 Discontinued (Stop Taking at Discharge) amiodarone (PACERONE) 200 Take 1 tablet 0 08/12 MG tabletIndications: (200 mg 0 Chronic atrial total) by fibrillation (HCC) mouth 2 (two) times daily. 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 09/13/2019 Discontinued (Stop Taking at Discharge) acetaminophen (TYLENOL) Take 1 tablet 30 tablet 0 500 MG tabletIndications: (500 mg 0 Primary osteoarthritis, total) by unspecified site mouth 2 (two) times daily for 15 days. 09/13/2019 Discontinued (Stop Taking at Discharge) bumetanide (BUMEX) 1 MG Take 1 tablet 0 tabletIndications: (1 mg total) 0 Pericardial effusion, by mouth 2 Pleural effusion (two) times daily. 09/13/2019 Discontinued (Stop Taking at Discharge) finasteride (PROPECIA) 1 Take 1 tablet 0 09/06 mg tabletIndications: BPH (1 mg total) 0 with obstruction/lower by mouth urinary tract symptoms daily. 09/13/2019 Discontinued (Stop Taking at Discharge) cholecalciferol 2,000 Take 0.5 0 09/07/19 2 unit TabIndications: tablets 0 Vitamin D deficiency (1,000 Units total) by mouth daily. 09/13/2019 Discontinued (Stop Taking at Discharge) melatonin 5 mg Tab Take 1 tablet 0 tabletIndications: (5 mg total) 0 Insomnia, unspecified by mouth type nightly. 09/13/2019 Discontinued (Stop Taking at Discharge) metoprolol tartrate Take 0.5 0 (LOPRESSOR) 25 MG tablets (12.5 0 tabletIndications: mg total) by Coronary artery disease mouth 2 (two) involving nightmute coronary times daily. artery of nightmute heart without angina pectoris, Chronic atrial fibrillation (HCC), Atrial fibrillation with RVR (HCC) 09/13/2019 Discontinued (Stop Taking at Discharge) polyethylene glycol Take 17 g by 14 each 0 09/06 (GLYCOLAX) 17 gram mouth daily 0 packetIndications: for 14 days. Constipation, unspecified constipation type 09/13/2019 Discontinued (Stop Taking at Discharge) zinc oxide-petrolatum Apply as 0 09/06/19 2 (CRITIC-AID) 20-51 % Pste needed to 0 topical paste affected area. 09/23/2019 acetaminophen (TYLENOL) Take 1 tablet 30 tablet 0 500 MG tablet (500 mg 0 total) by mouth 2 (two) times daily for 10 days. 11/13/2019 aspirin 81 MG EC tablet Take 1 tablet 60 tablet 0 (81 mg total) 0 by mouth daily for 60 days. 11/12/2019 atorvastatin (LIPITOR) 20 Take 1 tablet 60 tablet 0 MG tablet (20 mg total) 0 by mouth nightly for 60 days. 11/12/2019 bumetanide (BUMEX) 1 MG Take 1 tablet 120 tablet 0 tablet (1 mg total) 0 by mouth 2 (two) times daily for 60 days. 11/13/2019 cholecalciferol (VITAMIN Take 1 tablet 60 tablet 0 D3) 25 mcg (1,000 unit) (1,000 Units 0 tablet total) by mouth daily for 60 days. 11/13/2019 finasteride (PROPECIA) 1 Take 1 tablet 60 tablet 0 mg tablet (1 mg total) 0 by mouth daily for 60 days. 11/12/2019 melatonin 5 mg Tab tablet Take 1 tablet 60 tablet 0 (5 mg total) 0 by mouth nightly for 60 days. 11/13/2019 levothyroxine (SYNTHROID, Take 1 tablet 60 tablet 0 LEVOTHROID) 175 MCG (175 mcg 0 tablet total) by mouth Every morning on an empty stomach for 60 days. 11/12/2019 metoprolol tartrate Take 0.5 60 tablet 0 (LOPRESSOR) 25 MG tablet tablets (12.5 0 mg total) by mouth 2 (two) times daily for 60 days. 11/13/2019 polyethylene glycol Take 17 g by 1020 g 0 09/13 (GLYCOLAX) 17 gram packet mouth daily 0 for 60 days. 11/13/2019 tamsulosin (FLOMAX) 0.4 Take 1 60 capsule 0 mg Cap 24 hr capsule capsule (0.4 0 mg total) by mouth daily for 60 days. 11/12/2019 traZODone (DESYREL) 50 MG Take 0.5 30 tablet 0 tablet tablets (25 0 mg total) by mouth every night as needed for up to 60 days. 11/12/2019 zinc oxide-petrolatum Apply 1 g 71 g 0 0 (CRITIC-AID) 20-51 % Pste topically as 0 topical paste needed (pericare) for up to 60 days. 11/13/2019 amiodarone (PACERONE) 200 Take 1 tablet 60 tablet 0 MG tablet (200 mg 0 total) by mouth daily for 60 days. 09/13/2019 Discontinued (Stop Taking at Discharge) budesonide (PULMICORT) Take 2 mLs 240 mL 0 0.5 mg/2 mL nebulizer (0.5 mg 0 solution total) by nebulization 2 (two) times daily for 60 days. 11/12/[address] 1 drop 14.4 mL 0 sodium (CELLUVISC, into both 0 REFRESH) 1 % DpGe eyes every 8 (eight) hours for 60 days. 09/13/2019 Discontinued (Stop Taking at Discharge) ipratropium (ATROVENT) Take 2.5 mLs 900 mL 0 0.02 % nebulizer solution (0.5 mg 0 total) by nebulization every 4 (four) hours for 60 days. 09/13/2019 Discontinued (Stop Taking at Discharge) levalbuterol (XOPENEX) Take 3 mLs 1080 mL 0 0.63 mg/3 mL nebulizer (0.63 mg 0 solution total) by nebulization every 4 (four) hours for 60 days. 11/12/2019 nystatin (MYCOSTATIN) Apply 60 g 0 100,000 unit/gram powder topically 2 0 (two) times daily for 60 days. Active Problems Problem Noted Date DORCAS (acute kidney injury) 09/06/2019 BPH with obstruction/lower urinary tract symptoms Delirium 09/06/2019 Protein calorie malnutrition 09/06/2019 Pleural effusion 09/06/2019 Biventricular failure 08/29/2019 Leukocytosis 08/29/2019 Acute respiratory distress 08/28/2019 Fluid overload 08/28/2019 Acute encephalopathy 08/27/2019 SIRS (systemic inflammatory response syndrome) 08/26 Pericardial effusion s/p window by Dr. 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; Chronic atrial fibrillation; Chronic obstructive pulmonary disease, unspecified COPD type (HCC); Status post creation of pericardial window; Atrial fibrillation with RVR (HCC); Impaired mobility and ADLs; Pancreatic mass; Insomnia, unspecified type; Primary osteoarthritis, unspecified site; Vitamin D deficiency; Constipation, unspecified constipation type; BPH with obstruction/lower urinary tract symptoms; Pleural effusion; Acute metabolic encephalopathy; Polypharmacy; Sleep-wake cycle disorder; Overflow incontinence of urine; Acute encephalopathy; Acute respiratory insufficiency; Delirium; SIRS (systemic inflammatory response syndrome) (HCC); Other hypervolemia; Biventricular failure (HCC); Other elevated white blood cell (WBC) count; DORCAS (acute kidney injury) (HCC) 08/21/2019 Hospital Cardiology - Encounter 09/07/2019 08/21/2019 Orders Only General Internal Me dicine 08/21/2019 Travel after 04/18/2019 Social History Date Tobacco Use Types Packs/Day Years Used Quit: 1970 Former Smoker Smokeless Tobacco: Never Used Sex Assigned at Date Recorded Not on file Last Filed Vital Signs Reading Time Taken Comments Vital Sign 106/57 09/14/2019 8:46 AM CDT Blood Pressure 79 09/14/2019 8:46 AM CDT Pulse 36.3 C (97.3 F) 09/14/2019 8:46 AM CDT Temperature 18 09/14/2019 8:46 AM CDT Respiratory Rate 96% 09/14/2019 8:46 AM CDT Oxygen Saturation 21% 09/07/2019 8:52 AM CDT Inhaled Oxygen Concentration 78.3 kg (172 lb 9.6 oz) 09/09/2019 4:00 PM CDT Weight 187 cm (6' 1.62") 09/07/2019 11:49 AM CDT Height 22.39 09/07/2019 11:49 AM CDT Body Mass Index Plan of Treatment Health Maintenance Due Date Last Done Comments Medicare IPPE (WELCOME TO 06/13/2019 MEDICARE) INFLUENZA VACCINE (#1) 2020 04/23/2019, 02/20/2018, 02/28/2017, Additional history exists PNEUMOCOCCAL 65+ YRS Completed 04/23/2019, 03/05/2015, 03/25/2010 Procedures Comments Procedure Name Priority Date/Time Associated Diag nosis RHYTHM STRIP - SCAN 09/12/2019 11:52 AM CDT REPORT OF PROCEDURE - 09/10/2019 ENDOSCOPY SCAN 11:10 AM CDT RHYTHM STRIP - SCAN 09/10/2019 11:10 AM CDT CBC (HEMOGRAM ONLY) Routine 09/10/2019 4:06 AM CDT BASIC METABOLIC PANEL (7) Routine 09/10/2019 4:06 AM CDT COMPREHENSIVE METABOLIC Routine 09/08/2019 PANEL 4:01 AM CDT CBC W/PLT COUNT & AUTO Routine 09/08/2019 DIFFERENTIAL 4:00 AM CDT CBC W/PLT COUNT & AUTO Routine 09/08/2019 DIFFERENTIAL 4:00 AM CDT ECG 12-LEAD Routine 09/07/2019 1:47 PM CDT Procedure Note - Interface, External Ris In - 04/10/2020 10:26 AM CDT Ventricula r Rate 83 BPM Atrial Rate 83 BPM P-R Interval 170 ms QRS Duration 96 ms Q-T Interval 472 ms QTC Calculatio n(Bazett) 554 ms P [place] 69 degrees R [place] 49 degrees T [place] 63 degrees Normal sinus rhythm Prolonged QT Abnormal ECG When compared with ECG of 0 13:46, No significan t change was found ECG 12-LEAD Routine 09/07/2019 1:46 PM CDT Procedure Note - Interface, External Ris In - 04/10/2020 10:26 AM CDT Ventricula r Rate 83 BPM Atrial Rate 83 BPM P-R Interval 168 ms QRS Duration 98 ms Q-T Interval 474 ms QTC Calculatio n(Bazett) 556 ms P [place] 71 degrees R [place] 48 degrees T [place] 64 degrees Normal sinus rhythm Nonspecifi c ST and T wave abnormalit y Prolonged QT Abnormal ECG When compared with ECG of 0 06:10, Borderline criteria for Inferior infarct are no longer Present T wave inversion no longer evident in Inferior leads T wave inversion no longer evident in Anterolate ral leads QT has shortened TSH/FREE T4 IF INDICATED Routine 09/06/2019 8:55 AM CDT XR CHEST 1 VIEW Routine 09/06/2019 PORTABLE/BEDSIDE 4:26 AM CDT VITAMIN D, 25-HYDROXY Routine 09/06/2019 4:11 AM CDT PHOSPHORUS Routine 09/06/2019 4:11 AM CDT MAGNESIUM Routine 09/06/2019 4:11 AM CDT BASIC METABOLIC PANEL (7) Routine 09/06/2019 4:[address] ABDOMEN/PELVIS WITHOUT LACHO 09/05/2019 IV CONTRAST 4:53 PM CDT UREA NITROGEN, RANDOM Routine 09/05/2019 URINE 10:49 AM CDT CREATININE, RANDOM URINE Routine 09/05/2019 10:49 AM CDT SODIUM, RANDOM URINE Routine 09/05/2019 10:49 AM CDT URINALYSIS WITHOUT Routine 09/05/2019 MICROSCOPIC 10:49 AM CDT BLOOD GAS, VENOUS Routine 09/05/2019 6:10 AM CDT MAGNESIUM Routine 09/05/2019 5:01 AM CDT BASIC METABOLIC PANEL (7) Routine 09/05/2019 5:01 AM CDT XR CHEST 1 VIEW Routine 09/05/2019 PORTABLE/BEDSIDE 4:36 AM CDT CALCIUM, IONIZED Routine 09/04/2019 5:01 PM CDT POTASSIUM Routine 09/04/2019 5:01 PM CDT MAGNESIUM Routine 09/04/2019 5:01 PM CDT CBC W/PLT COUNT & AUTO Routine 09/04/2019 DIFFERENTIAL 4:13 AM CDT CBC W/PLT COUNT & AUTO Routine 09/04/2019 DIFFERENTIAL 4:13 AM CDT BASIC METABOLIC PANEL (7) Routine 09/04/2019 4:13 AM CDT XR CHEST 1 VIEW Routine 09/04/2019 PORTABLE/BEDSIDE 1:44 AM CDT ECG 12-LEAD Routine 09/03/2019 6:10 AM CDT Procedure Note - Interface, External Ris In - 09/03/2019 6:20 AM CDT Ventricula r Rate 72 BPM Atrial Rate 72 BPM P-R Interval 162 ms QRS Duration 106 ms Q-T Interval 558 ms QTC Calculatio n(Bazett) 611 ms P [place] 76 degrees R [place] 46 degrees T [place] 83 degrees Normal sinus rhythm Possible Inferior infarct , age undetermin ed ST & T wave abnormalit y, consider anterolate ral ischemia Prolonged QT Abnormal ECG When compared with ECG of 20-MAR-202 0 12:28, T wave inversion now evident in Inferior leads ECG 12-LEAD Routine 09/03/2019 6:10 AM CDT MAGNESIUM Routine 09/03/2019 5:00 AM CDT BLOOD GAS, ARTERIAL Routine 09/03/2019 5:00 AM CDT BASIC METABOLIC PANEL (7) Routine 09/03/2019 5:00 AM CDT HEPATIC FUNCTION PANEL Routine 09/03/2019 5:00 AM CDT PHOSPHORUS Routine 09/03/2019 5:00 AM CDT CBC (HEMOGRAM ONLY) Routine 09/03/2019 5:00 AM CDT XR CHEST 1 VIEW Routine 09/03/2019 PORTABLE/BEDSIDE 4:53 AM CDT PHOSPHORUS Routine 09/02/2019 5:06 PM CDT MAGNESIUM Routine 09/02/2019 5:06 PM CDT BASIC METABOLIC PANEL (7) Routine 09/02/2019 5:06 PM CDT BLOOD GAS, ARTERIAL Routine 09/02/2019 5:06 PM CDT XR CHEST 1 VIEW Routine 09/02/2019 PORTABLE/BEDSIDE 9:20 AM CDT PHOSPHORUS Routine 09/02/2019 3:42 AM CDT CBC (HEMOGRAM ONLY) Routine 09/02/2019 3:42 AM CDT CALCIUM, IONIZED Routine 09/02/2019 3:42 AM CDT MAGNESIUM Routine 09/02/2019 3:42 AM CDT BASIC METABOLIC PANEL (7) STAT 09/02/2019 3:42 AM CDT BLOOD GAS, VENOUS Routine 09/02/2019 3:42 AM CDT BLOOD GAS, VENOUS STAT 09/01/2019 7:38 PM CDT BLOOD GAS, VENOUS Routine 09/01/2019 5:45 PM CDT CALCIUM, IONIZED Routine 09/01/2019 4:46 PM CDT POTASSIUM Routine 09/01/2019 4:46 PM CDT MAGNESIUM Routine 09/01/2019 4:46 PM CDT CALCIUM, IONIZED Routine 09/01/2019 11:32 AM CDT POTASSIUM Routine 09/01/2019 11:30 AM CDT MAGNESIUM Routine 09/01/2019 11:30 AM CDT PHOSPHORUS Routine 09/01/2019 5:01 AM CDT CBC (HEMOGRAM ONLY) Routine 09/01/2019 5:01 AM CDT CALCIUM, IONIZED Routine 09/01/2019 5:01 AM CDT MAGNESIUM Routine 09/01/2019 5:01 AM CDT BASIC METABOLIC PANEL (7) STAT 09/01/2019 5:01 AM CDT XR CHEST 1 VIEW Routine 09/01/2019 PORTABLE/BEDSIDE 1:47 AM CDT CALCIUM, IONIZED Routine 08/31/2019 10:41 PM CDT MAGNESIUM Routine 08/31/2019 10:41 PM CDT BASIC METABOLIC PANEL (7) STAT 08/31/2019 10:[address] ABDOMEN/PELVIS WITH IV Routine 08/31/2019 CONTRAST 4:[address] CHEST WITH IV CONTRAST Routine 08/31/2019 4:29 PM CDT POTASSIUM Routine 08/31/2019 1:02 PM CDT MAGNESIUM Routine 08/31/2019 1:02 PM CDT ECG 12-LEAD Routine 08/31/2019 12:28 PM CDT Procedure Note - Interface, External Ris In - 08/31/2019 8:03 PM CDT Ventricula r Rate 72 BPM Atrial Rate 72 BPM P-R Interval 172 ms QRS Duration 100 ms Q-T Interval 598 ms QTC Calculatio n(Bazett) 654 ms P [place] 68 degrees R [place] 37 degrees T [place] 64 degrees Normal sinus rhythm ST & T wave abnormalit y, consider anterolate ral ischemia Prolonged QT Abnormal ECG When compared with ECG of 0 09:29, Sinus rhythm has replaced Atrial fibrillati on Vent. rate has decreased BY 90 BPM T wave inversion now evident in Anterolate ral leads ECG 12-LEAD Routine 08/31/2019 12:28 PM CDT CBC W/PLT COUNT & AUTO Routine 08/31/2019 DIFFERENTIAL 4:43 AM CDT PHOSPHORUS Routine 08/31/2019 4:43 AM CDT CBC W/PLT COUNT & AUTO Routine 08/31/2019 DIFFERENTIAL 4:43 AM CDT MAGNESIUM Routine 08/31/2019 4:43 AM CDT BASIC METABOLIC PANEL (7) Routine 08/31/2019 4:43 AM CDT XR CHEST 1 VIEW Routine 08/31/2019 PORTABLE/BEDSIDE 3:22 AM CDT STOOL PATH CHARGE Routine 08/30/2019 9:50 PM CDT SHIGA TOXIN SCREEN Routine 08/30/2019 9:50 PM CDT STOOL CULTURE + SHIGA Routine 08/30/2019 TOXIN 9:50 PM CDT VANCOMYCIN LEVEL, TROUGH Timed 08/30/2019 10:29 AM CDT (CELLAVISION MANUAL DIFF) Routine 08/30/2019 4:14 AM CDT CBC W/PLT COUNT & AUTO Routine 08/30/2019 DIFFERENTIAL 4:14 AM CDT PHOSPHORUS Routine 08/30/2019 4:14 AM CDT CBC W/PLT COUNT & AUTO Routine 08/30/2019 DIFFERENTIAL 4:14 AM CDT MAGNESIUM Routine 08/30/2019 4:14 AM CDT BASIC METABOLIC PANEL (7) Routine 08/30/2019 4:14 AM CDT XR CHEST 1 VIEW Routine 08/30/2019 PORTABLE/BEDSIDE 12:52 AM CDT ECHOCARDIOGRAM REPORT - 08/29/2019 SCAN 9:22 PM CDT LACTIC ACID, VENOUS STAT 08/29/2019 12:05 PM CDT BLOOD CULTURE Routine 08/29/2019 12:05 PM CDT BLOOD CULTURE Routine 08/29/2019 12:05 PM CDT 2D ECHO W/ DOPPLER STAT 08/29/2019 (CW/PW/COLOR) 8:31 AM CDT PROCALCITONIN Routine 08/29/2019 3:03 AM CDT XR CHEST 1 VIEW STAT 08/29/2019 PORTABLE/BEDSIDE 1:05 AM CDT (CELLAVISION MANUAL DIFF) Routine 08/29/2019 12:33 AM CDT CBC W/PLT COUNT & AUTO Routine 08/29/2019 DIFFERENTIAL 12:33 AM CDT PHOSPHORUS Routine 08/29/2019 12:33 AM CDT CBC W/PLT COUNT & AUTO Routine 08/29/2019 DIFFERENTIAL 12:33 AM CDT MAGNESIUM Routine 08/29/2019 12:33 AM CDT BASIC METABOLIC PANEL (7) Routine 08/29/2019 12:33 AM CDT POCT-GLUCOSE Routine 08/29/2019 12:17 AM CDT POCT-CALCIUM IONIZED Routine 08/29/2019 12:17 AM CDT POCT-HEMATOCRIT Routine 08/29/2019 12:17 AM CDT POCT-HEMOGLOBIN Routine 08/29/2019 12:17 AM CDT POCT-POTASSIUM Routine 08/29/2019 12:17 AM CDT POCT-SODIUM Routine 08/29/2019 12:17 AM CDT POCT-BLOOD GASES, Routine 08/29/2019 ARTERIAL 12:17 AM CDT LACTIC ACID, VENOUS Routine 08/29/2019 12:16 AM CDT ECHOCARDIOGRAM REPORT - 08/28/2019 SCAN 9:20 PM CDT 2D ECHO W/ DOPPLER STAT 08/28/2019 (CW/PW/COLOR) 7:51 AM CDT XR CHEST 1 VIEW STAT 08/28/2019 PORTABLE/BEDSIDE 3:32 AM CDT CBC W/PLT COUNT & AUTO Routine 08/28/2019 DIFFERENTIAL 2:36 AM CDT BASIC METABOLIC PANEL (7) STAT 08/28/2019 2:36 AM CDT CBC W/PLT COUNT & AUTO Routine 08/28/2019 DIFFERENTIAL 2:36 AM CDT MAGNESIUM Routine 08/28/2019 2:36 AM CDT XR CHEST 1 VIEW STAT 08/27/2019 PORTABLE/BEDSIDE 1:33 PM CDT MAGNESIUM Routine 08/27/2019 1:02 PM CDT CBC W/PLT COUNT & AUTO Routine 08/27/2019 DIFFERENTIAL 3:46 AM CDT BASIC METABOLIC PANEL (7) STAT 08/27/2019 3:46 AM CDT CBC W/PLT COUNT & AUTO Routine 08/27/2019 DIFFERENTIAL 3:46 AM CDT MAGNESIUM Routine 08/27/2019 3:46 AM CDT MAGNESIUM Routine 08/26/2019 5:51 PM CDT POTASSIUM Routine 08/26/2019 5:51 PM CDT CALCIUM, IONIZED Routine 08/26/2019 5:49 PM CDT CBC W/PLT COUNT & AUTO Routine 08/26/2019 DIFFERENTIAL 5:22 AM CDT CBC W/PLT COUNT & AUTO Routine 08/26/2019 DIFFERENTIAL 5:22 AM CDT PHOSPHORUS Routine 08/26/2019 5:22 AM CDT MAGNESIUM Routine 08/26/2019 5:22 AM CDT BASIC METABOLIC PANEL (7) STAT 08/26/2019 5:22 AM CDT MAGNESIUM Add-On 08/25/2019 5:46 PM CDT BASIC METABOLIC PANEL (7) STAT 08/25/2019 5:46 PM CDT OXYGEN SATURATION, STAT 08/25/2019 MEASURED 5:46 PM CDT OXYGEN SATURATION, STAT 08/25/2019 MEASURED 9:28 AM CDT CBC W/PLT COUNT & AUTO Routine 08/25/2019 DIFFERENTIAL 5:15 AM CDT PHOSPHORUS Routine 08/25/2019 5:15 AM CDT BASIC METABOLIC PANEL (7) STAT 08/25/2019 5:15 AM CDT CBC W/PLT COUNT & AUTO Routine 08/25/2019 DIFFERENTIAL 5:15 AM CDT MAGNESIUM Routine 08/25/2019 5:15 AM CDT CBC W/PLT COUNT & AUTO Routine 08/24/2019 DIFFERENTIAL 11:30 PM CDT PHOSPHORUS Routine 08/24/2019 11:30 PM CDT MAGNESIUM Routine 08/24/2019 11:30 PM CDT BASIC METABOLIC PANEL (7) STAT 08/24/2019 11:30 PM CDT CBC W/PLT COUNT & AUTO Routine 08/24/2019 DIFFERENTIAL 11:30 PM CDT CBC W/PLT COUNT & AUTO Routine 08/24/2019 DIFFERENTIAL 5:18 PM CDT OXYGEN SATURATION, STAT 08/24/2019 MEASURED 5:18 PM CDT CBC W/PLT COUNT & AUTO Routine 08/24/2019 DIFFERENTIAL 5:18 PM CDT BASIC METABOLIC PANEL (7) STAT 08/24/2019 5:17 PM CDT CBC W/PLT COUNT & AUTO Routine 08/24/2019 DIFFERENTIAL 9:00 AM CDT BASIC METABOLIC PANEL (7) STAT 08/24/2019 9:00 AM CDT BLOOD GAS, ARTERIAL STAT 08/24/2019 9:00 AM CDT LACTIC ACID, ARTERIAL Routine 08/24/2019 9:00 AM CDT CBC W/PLT COUNT & AUTO Routine 08/24/2019 DIFFERENTIAL 9:00 AM CDT XR CHEST 1 VIEW Routine 08/24/2019 PORTABLE/BEDSIDE 2:15 AM CDT CBC W/PLT COUNT & AUTO Routine 08/24/2019 DIFFERENTIAL 1:02 AM CDT MAGNESIUM Routine 08/24/2019 1:02 AM CDT OXYGEN SATURATION, STAT 08/24/2019 MEASURED 1:02 AM CDT BASIC METABOLIC PANEL (7) STAT 08/24/2019 1:02 AM CDT BLOOD GAS, ARTERIAL STAT 08/24/2019 1:02 AM CDT CBC W/PLT COUNT & AUTO Routine 08/24/2019 DIFFERENTIAL 1:02 AM CDT LACTIC ACID, ARTERIAL Routine 08/24/2019 1:02 AM CDT ECHOCARDIOGRAM REPORT - 08/23/2019 SCAN 9:12 PM CDT BASIC METABOLIC PANEL (7) STAT 08/23/2019 5:24 PM CDT OXYGEN SATURATION, STAT 08/23/2019 MEASURED 5:24 PM CDT CBC W/PLT COUNT & AUTO Routine 08/23/2019 DIFFERENTIAL 3:16 PM CDT CBC W/PLT COUNT & AUTO Routine 08/23/2019 DIFFERENTIAL 3:16 PM CDT LACTIC ACID, ARTERIAL Routine 08/23/2019 3:15 PM CDT BLOOD GAS, ARTERIAL STAT 08/23/2019 3:15 PM CDT BASIC METABOLIC PANEL (7) STAT 08/23/2019 12:09 PM CDT LACTIC ACID, ARTERIAL Routine 08/23/2019 12:09 PM CDT BLOOD GAS, ARTERIAL STAT 08/23/2019 12:09 PM CDT HGB/HCT (H&H) - STAT LAB STAT 08/23/2019 12:09 PM CDT GLUCOSE-STAT LAB STAT 08/23/2019 12:09 PM CDT POTASSIUM-STAT LAB STAT 08/23/2019 12:09 PM CDT SODIUM NA-STAT LAB STAT 08/23/2019 12:09 PM CDT CALCIUM, IONIZED STAT 08/23/2019 12:09 PM CDT OXYGEN SATURATION, STAT 08/23/2019 MEASURED 12:08 PM CDT OXYGEN SATURATION, STAT 08/23/2019 MEASURED 10:16 AM CDT ECG 12-LEAD Routine 08/23/2019 9:29 AM CDT Procedure Note - Interface, External Ris In - 08/24/2019 4:16 PM CDT Ventricula r Rate 162 BPM Atrial Rate 234 BPM QRS Duration 96 ms Q-T Interval 308 ms QTC Calculatio n(Bazett) 505 ms R [place] 52 degrees T [place] 69 degrees Atrial fibrillati on with rapid ventricula r response Cannot rule out Anterior infarct , new Inferior injury pattern * ACUTE DE * Abnormal ECG When compared with ECG of 0 06:03, Atrial fibrillati on has replaced Sinus rhythm Vent. rate has increased BY 87 BPM Acute Anterior infarct is now Present ECG 12-LEAD STAT 08/23/2019 9:29 AM CDT CBC W/PLT COUNT & AUTO Routine 08/23/2019 DIFFERENTIAL 7:58 AM CDT CBC W/PLT COUNT & AUTO Routine 08/23/2019 DIFFERENTIAL 7:58 AM CDT CBC W/PLT COUNT & AUTO Routine 08/23/2019 DIFFERENTIAL 3:54 AM CDT CALCIUM, IONIZED Routine 08/23/2019 3:54 AM CDT PHOSPHORUS Routine 08/23/2019 3:54 AM CDT MAGNESIUM Routine 08/23/2019 3:54 AM CDT BASIC METABOLIC PANEL (7) STAT 08/23/2019 3:54 AM CDT BLOOD GAS, ARTERIAL STAT 08/23/2019 3:54 AM CDT RRL CRITICAL LABS STAT 08/23/2019 (ABG,NA,K,H&H,GLUCOSE) 3:54 AM CDT LACTIC ACID, ARTERIAL Routine 08/23/2019 3:54 AM CDT CBC W/PLT COUNT & AUTO Routine 08/23/2019 DIFFERENTIAL 3:54 AM CDT XR CHEST 1 VIEW Routine 08/23/2019 PORTABLE/BEDSIDE 3:17 AM CDT LACTIC ACID, ARTERIAL STAT 08/22/2019 8:12 PM CDT HGB/HCT (H&H) - STAT LAB STAT 08/22/2019 8:08 PM CDT GLUCOSE-STAT LAB STAT 08/22/2019 8:08 PM CDT POTASSIUM-STAT LAB STAT 08/22/2019 8:08 PM CDT SODIUM NA-STAT LAB STAT 08/22/2019 8:08 PM CDT BLOOD GAS, ARTERIAL STAT 08/22/2019 8:08 PM CDT CALCIUM, IONIZED STAT 08/22/2019 8:08 PM CDT RRL CRITICAL LABS STAT 08/22/2019 (ABG,NA,K,H&H,GLUCOSE) 8:08 PM CDT POCT-GLUCOSE METER Routine 08/22/2019 8:03 PM CDT POCT-GLUCOSE METER Routine 08/22/2019 6:19 PM CDT BLOOD GAS, ARTERIAL STAT 08/22/2019 6:12 PM CDT LACTIC ACID, ARTERIAL Routine 08/22/2019 6:12 PM CDT TRANSFUSION SERVICE 08/22/2019 REPORT - SCAN 5:54 PM CDT SPUTUM CULTURE + GRAM STAT 08/22/2019 STAIN 5:32 PM CDT LIMITED 2D ECHOCARDIOGRAM Routine 08/22/2019 4:14 PM CDT TRANSESOPHAGEAL ECHO STAT 08/22/2019 4:02 PM CDT CBC W/PLT COUNT & AUTO Routine 08/22/2019 DIFFERENTIAL 3:04 PM CDT LEGIONELLA URINE ANTIGEN Routine 08/22/2019 3:04 PM CDT CBC W/PLT COUNT & AUTO Routine 08/22/2019 DIFFERENTIAL 3:04 PM CDT STREP PNEUMONIAE ANTIGEN Routine 08/22/2019 3:04 PM CDT POCT-GLUCOSE METER Routine 08/22/2019 1:37 PM CDT LACTIC ACID, ARTERIAL Routine 08/22/2019 1:34 PM CDT CORTISOL Routine 08/22/2019 10:12 AM CDT XR CHEST 1 VIEW STAT 08/22/2019 PORTABLE/BEDSIDE 10:06 AM CDT ECG 12-LEAD Routine 08/22/2019 6:01 AM CDT CBC W/PLT COUNT & AUTO Routine 08/22/2019 DIFFERENTIAL 3:44 AM CDT FIBRINOGEN Routine 08/22/2019 3:44 AM CDT APTT Routine 08/22/2019 3:44 AM CDT PROTHROMBIN TIME/INR Routine 08/22/2019 3:44 AM CDT BLOOD GAS, ARTERIAL Routine 08/22/2019 3:44 AM CDT CALCIUM, IONIZED Routine 08/22/2019 3:44 AM CDT PHOSPHORUS Routine 08/22/2019 3:44 AM CDT MAGNESIUM Routine 08/22/2019 3:44 AM CDT BASIC METABOLIC PANEL (7) STAT 08/22/2019 3:44 AM CDT CBC W/PLT COUNT & AUTO Routine 08/22/2019 DIFFERENTIAL 3:44 AM CDT XR CHEST 1 VIEW Routine 08/22/2019 PORTABLE/BEDSIDE 12:57 AM CDT CALCIUM, IONIZED Routine 08/22/2019 12:28 AM CDT CBC W/PLT COUNT & AUTO Routine 08/22/2019 DIFFERENTIAL 12:27 AM CDT HGB/HCT (H&H) - STAT LAB Routine 08/22/2019 12:27 AM CDT GLUCOSE-STAT LAB Routine 08/22/2019 12:27 AM CDT POTASSIUM-STAT LAB Routine 08/22/2019 12:27 AM CDT SODIUM NA-STAT LAB Routine 08/22/2019 12:27 AM CDT BLOOD GAS, ARTERIAL Routine 08/22/2019 12:27 AM CDT LACTIC ACID, ARTERIAL Routine 08/22/2019 12:27 AM CDT PT/APTT Routine 08/22/2019 12:27 AM CDT RRL CRITICAL LABS Routine 08/22/2019 (ABG,NA,K,H&H,GLUCOSE) 12:27 AM CDT CBC W/PLT COUNT & AUTO Routine 08/22/2019 DIFFERENTIAL 12:27 AM CDT BASIC METABOLIC PANEL (7) Add-On 08/21/2019 11:42 PM CDT LACTATE DEHYDROGENASE Routine 08/21/2019 (LDH) 11:42 PM CDT TROPONIN I Routine 08/21/2019 11:42 PM CDT XR CHEST 1 VIEW STAT 08/21/2019 PORTABLE/BEDSIDE 11:07 PM CDT BLOOD GAS, ARTERIAL STAT 08/21/2019 10:26 PM CDT XR CHEST 1 VIEW STAT 08/21/2019 PORTABLE/BEDSIDE 9:17 PM CDT ECHOCARDIOGRAM REPORT - 08/21/2019 SCAN 9:14 PM CDT FIBRINOGEN Routine 08/21/2019 8:52 PM CDT APTT Routine 08/21/2019 8:52 PM CDT PROTHROMBIN TIME/INR Routine 08/21/2019 8:52 PM CDT CBC W/PLT COUNT & AUTO Routine 08/21/2019 DIFFERENTIAL 8:50 PM CDT BLOOD GAS, ARTERIAL Routine 08/21/2019 8:50 PM CDT CALCIUM, IONIZED STAT 08/21/2019 8:50 PM CDT LACTIC ACID, ARTERIAL STAT 08/21/2019 8:50 PM CDT PHOSPHORUS STAT 08/21/2019 8:50 PM CDT MAGNESIUM STAT 08/21/2019 8:50 PM CDT BASIC METABOLIC PANEL (7) STAT 08/21/2019 8:50 PM CDT CBC W/PLT COUNT & AUTO Routine 08/21/2019 DIFFERENTIAL 8:50 PM CDT ANESTHESIA LAYNE Routine 08/21/2019 8:17 PM CDT CYTOLOGY REQUEST Routine 08/21/2019 8:15 PM CDT CYTOLOGY AP Routine 08/21/2019 8:15 PM CDT BODY FLUID CULTURE + GRAM STAT 08/21/2019 STAIN 8:09 PM CDT ANAEROBIC CULTURE STAT 08/21/2019 8:09 PM CDT FUNGUS CULTURE + SMEAR STAT 08/21/2019 8:09 PM CDT AFB CULTURE + SMEAR STAT 08/21/2019 (NON-SPUTUM) 8:09 PM CDT BODY FLUID CULTURE + GRAM STAT 08/21/2019 STAIN 8:00 PM CDT FUNGUS CULTURE + SMEAR STAT 08/21/2019 8:00 PM CDT ANAEROBIC CULTURE STAT 08/21/2019 8:00 PM CDT AFB CULTURE + SMEAR STAT 08/21/2019 (NON-SPUTUM) 8:00 PM CDT SURGICALLY OBTAINED STAT 08/21/2019 CULTURE + GRAM STAIN 7:56 PM CDT FUNGUS CULTURE + SMEAR STAT 08/21/2019 7:56 PM CDT ANAEROBIC CULTURE STAT 08/21/2019 7:56 PM CDT AFB CULTURE + SMEAR STAT 08/21/2019 (NON-SPUTUM) 7:56 PM CDT TISSUE EXAM AP Routine 08/21/2019 7:56 PM CDT CYTOLOGY REQUEST Routine 08/21/2019 7:49 PM CDT CYTOLOGY AP Routine 08/21/2019 7:49 PM CDT BLOOD CULTURE STAT 08/21/2019 6:35 PM CDT INSERTION,CHEST TUBE 08/21/2019 Pericardial effu isaac 6:33 PM CDT Special Needs REQ: LACHO LAYNE 08/21/2019 Pericardial effusio n 6:33 PM CDT Special Needs REQ: LACHO CREATION,PERICARDIAL 08/21/2019 Pericardial effu isaac WINDOW 6:33 PM CDT Special Needs REQ: LACHO THORACOSCOPY 08/21/2019 Pericardial effusio n (VATS),CREATION OF 6:33 PM CDT PERICARDIAL WINDOW Special Needs REQ: LACHO BLOOD CULTURE STAT 08/21/2019 5:47 PM CDT ABORH, MANUAL STAT 08/21/2019 5:31 PM CDT 2D ECHO W/ DOPPLER STAT 08/21/2019 (CW/PW/COLOR) 5:30 PM CDT VANCOMYCIN LEVEL, RANDOM STAT 08/21/2019 5:30 PM CDT B-TYPE NATRIURETIC FACTOR STAT 08/21/2019 (BNP) 5:27 PM CDT RESPIRATORY PANEL SL[facility] STAT 08/21/2019 5:27 PM CDT ECG 12-LEAD Routine 08/21/2019 5:02 PM CDT Procedure Note - Interface, External Ris In - 08/24/2019 4:16 PM CDT Ventricula r Rate 100 BPM Atrial Rate 104 BPM QRS Duration 84 ms Q-T Interval 460 ms QTC Calculatio n(Bazett) 593 ms R [place] 39 degrees T [place] 65 degrees Atrial fibrillati on with premature ventricula r or aberrantly conducted complexes ST elevation consider inferior injury or acute infarct Prolonged QT * ACUTE DE * Abnormal ECG When compared with ECG of 0 16:58, QT has lengthened ECG 12-LEAD STAT 08/21/2019 5:02 PM CDT ECG 12-LEAD Routine 08/21/2019 4:58 PM CDT Procedure Note - Interface, External Ris In - 08/24/2019 4:14 PM CDT Ventricula r Rate 101 BPM Atrial Rate 94 BPM QRS Duration 92 ms Q-T Interval 400 ms QTC Calculatio n(Bazett) 518 ms R [place] 41 degrees T [place] 69 degrees Atrial fibrillati on with rapid ventricula r response with premature ventricula r or aberrantly conducted complexes ST elevation consider inferior injury or acute infarct * ACUTE DE * Abnormal ECG No previous ECGs available ECG 12-LEAD Routine 08/21/2019 4:58 PM CDT CBC W/PLT COUNT & AUTO STAT 08/21/2019 DIFFERENTIAL 4:40 PM CDT TYPE AND SCREEN, STAT 08/21/2019 AUTOMATED 4:40 PM CDT PHOSPHORUS STAT 08/21/2019 4:40 PM CDT MAGNESIUM STAT 08/21/2019 4:40 PM CDT BLOOD GAS, VENOUS STAT 08/21/2019 4:40 PM CDT PLATELET COUNT STAT 08/21/2019 4:40 PM CDT FIBRINOGEN STAT 08/21/2019 4:40 PM CDT APTT STAT 08/21/2019 4:40 PM CDT PROTHROMBIN TIME/INR STAT 08/21/2019 4:40 PM CDT COMPREHENSIVE METABOLIC STAT 08/21/2019 PANEL 4:40 PM CDT LACTIC ACID, ARTERIAL STAT 08/21/2019 4:40 PM CDT CBC W/PLT COUNT & AUTO STAT 08/21/2019 DIFFERENTIAL 4:40 PM CDT after 04/18/2019 Results * RHYTHM STRIP - SCAN (09/12/2019 11:52 AM CDT) Only the most recent of 2 results within the time period is included. Narrative Performed At This result has an attachment that is n ot available. * EKG-SCANNED (09/10/2019 11:10 AM CDT) Narrative Performed At This result has an attachment that is n ot available. * CBC (Hemogram only) (09/10/2019 4:06 AM CDT) Only the most recent of 4 results within the time period is included. WBC 8.0 3.5 - 10.5 K/L [facility] RBC 3.67 (L) 4.63 - 6.08 M/L [facility] Hemoglobin 10.4 (L) 13.7 - 17.5 GM/DL [facility] Hematocrit 32.0 (L) 40.1 - 51.0 % [facility] MCV 87.2 79.0 - 92.2 fL [facility] MCH 28.3 25.7 - 32.2 pg [facility] MCHC 32.5 32.3 - 36.5 GM/DL [facility] RDW 16.7 (H) 11.6 - 14.4 % [facility] Platelets 170 150 - 450 K/CU MM [facility] MPV 13.0 (H) 9.4 - 12.4 fL [facility] Specimen Blood - Entire right upper arm (body structure) Performing Organization Address [facility] one Number [address] [address] ASHLEY * Basic Metabolic Panel (09/10/2019 4:06 AM CDT) Only the most recent of 27 results within the time period is included. Sodium 133 (L) 136 - 145 meq/L [facility] Potassium 3.7 3.5 - 5.1 meq/L [facility] Chloride 92 (L) 98 - 107 meq/L [facility] CO2 34 (H) 22 - 29 meq/L [facility] BUN 32 (H) 7 - 21 mg/dL [facility] Creatinine 1.78 (H) 0.57 - 1.25 mg/dL [facility] Glucose 92 70 - 105 mg/dL [facility] Calcium 7.9 (L) 8.4 - 10.2 mg/dL [facility] EGFR 37Comment: ESTIMATED GFR IS mL/min/1.73 sq m [facility] NOT ACCURATE CREATININE [facility] CLEARANCE IN PREDICTING GLOMERULAR FILTRATION RATE. ESTIMATED GFR IS NOT APPLICABLE FOR DIALYSIS PATIENTS. Specimen Blood - Entire right upper arm (body structure) Performing Organization Address [facility] one Number [address] [address] ASHLEY * Comprehensive metabolic panel (09/08/2019 4:01 AM CDT) Only the most recent of 2 results within the time period is included. Protein, Total 5.9 (L) 6.0 - 8.3 gm/dL [facility] Albumin 3.4 (L) 3.5 - 5.0 g/dL [facility] Alkaline 83 40 - 150 U/L [facility] Phosphatase [facility] Total Bilirubin 1.1 0.2 - 1.2 mg/dL [facility] Sodium 132 (L) 136 - 145 meq/L [facility] Potassium 3.9 3.5 - 5.1 meq/L [facility] Chloride 92 (L) 98 - 107 meq/L [facility] CO2 33 (H) 22 - 29 meq/L [facility] BUN 30 (H) 7 - 21 mg/dL [facility] Creatinine 1.91 (H) 0.57 - 1.25 mg/dL [facility] Glucose 87 70 - 105 mg/dL [facility] Calcium 8.2 (L) 8.4 - 10.2 mg/dL [facility] AST 18 5 - 34 U/L [facility] ALT 15 6 - 55 U/L [facility] EGFR 34Comment: ESTIMATED GFR IS mL/min/1.73 sq m [facility] NOT ACCURATE CREATININE [facility] CLEARANCE IN PREDICTING GLOMERULAR FILTRATION RATE. ESTIMATED GFR IS NOT APPLICABLE FOR DIALYSIS PATIENTS. Specimen Blood - Entire right upper arm (body structure) Performing Organization Address City/State/Zipcode Ph one Number [facility] [address] [place], [place] [address] ASHLEY * CBC with platelet count + automated diff (09/08/2019 4:00 AM CDT) Only the most recent of 21 results within the time period is included. [facility] WBC 13.8 (H) 3.5 - 10.5 K/L [facility] RBC 4.01 (L) 4.63 - 6.08 M/L [facility] Hemoglobin 11.2 (L) 13.7 - 17.5 GM/DL [facility] Hematocrit 34.5 (L) 40.1 - 51.0 % [facility] MCV 86.0 79.0 - 92.2 fL [facility] MCH 27.9 25.7 - 32.2 pg [facility] MCHC 32.5 32.3 - 36.5 GM/DL [facility] RDW 16.5 (H) 11.6 - 14.4 % [facility] Platelets 163 150 - 450 K/CU MM [facility] MPV 13.4 (H) 9.4 - 12.4 fL [facility] % Neutros 84 % [facility] % Lymphs 7 % [facility] % Monos 9 % [facility] % Eos 0 % [facility] % Baso 0 % [facility] # Neutros 11.54 (H) 1.78 - 5.38 K/L [facility] # Lymphs 0.93 (L) 1.32 - 3.57 K/L [facility] # Monos 1.23 (H) 0.30 - 0.82 K/L [facility] # Eos 0.03 (L) 0.04 - 0.54 K/L [facility] # Baso 0.03 0.01 - 0.08 K/L [facility] Immature 0 0 - 1 % [facility] lative Specimen Blood - Entire right upper arm (body structure) Performing Organization Address City/State/Zipcode Ph one Number [facility] - [address] [place], [place] [address] ASHLEY * TSH/Free T4 If Indicated (09/06/2019 8:55 AM CDT) TSH 3.92 0.35 - 4.94 uIU/mL [facility] Specimen Blood Narrative Performed At Reinstatement Clerk ID - KATELYN White [facility] Performing Organization Address City/[facility] Ph one Number [facility] [address] [place], [place] [address] MEDICAL CENTER * XR chest 1 view portable / bedside (09/06/2019 4:26 AM CDT) Only the most recent of 17 results within the time period is included. Specimen Narrative Performed At FINAL REPORT [facility] RAD, CHEST, 1 VIEW, NON DEPT INDICATION: hypercarbic respiratory ins ufficiency COMPARISON: Prior day's exam FINDINGS: Portable frontal view of the chest. IMPRESSION: Lungs and pleura: Unchanged airspace an d pleural opacities. No pneumothorax. Heart and mediastinum: Stable contours. Additional findings: None. Signed: Shala Al MD Report Verified Date/Time: 09/06/2019 04:50:50 Procedure Note Interface, External Ris In - 09/06/2019 4:53 AM CDT FINAL REPORT RAD, CHEST, 1 VIEW, NON DEPT INDICATION: hypercarbic respiratory insufficiency COMPARISON: Prior day's exam FINDINGS: Portable frontal view of the chest. IMPRESSION: Lungs and pleura: Unchanged airspace and pleural opacities. No pneumothorax. Heart and mediastinum: Stable contours. Additional findings: None. Signed: Shala Al MD Report Verified Date/Time: 09/06/2019 04:50:50 Performing Organization Address [facility] Ph one Number [facility] * Vitamin D, 25-Hydroxy (09/06/2019 4:11 AM CDT) Vitamin D 31.9 6.6 - 49.9 ng/mL [facility] 25-Hydroxy [facility] Specimen Blood Narrative Performed At Effective 03/23/2017: Reference Range Change [facility] New: 6.6-49.9 ng/mL Previous: 13.0-47.8 ng/mL [facility] Recommended Vitamin D Target Range: 30. 0-40.0 ng/mL Reinstatement Clerk HUSSEIN Pal Performing Organization Address [facility] one Number [address] [facility] * Phosphorus (09/06/2019 4:11 AM CDT) Only the most recent of 15 results within the time period is included. Phosphorus 2.7 2.3 - 4.7 mg/dL [facility] Specimen Blood Narrative Performed At Reinstatement Clerk HUSSEIN Pal [facility] Performing Organization Address [facility] one Number [address] [facility] * Magnesium (09/06/2019 4:11 AM CDT) Only the most recent of 27 results within the time period is included. Magnesium 1.9 1.6 - 2.6 mg/dL [facility] Specimen Blood Narrative Performed At Reinstatement Clerk HUSSEIN Pal [facility] Performing Organization Address [facility] one Number [address] [facility] * CT abdomen/pelvis without iv contrast (09/05/2019 4:53 PM CDT) Specimen Narrative Performed At FINAL REPORT GE [facility] TECHNIQUE: CT of the abdomen and pelvis WITHOUT intravenous contrast and WITH oral contrast. Dose modulation , iterative reconstruction, and/or weight-based adjustment of the m A/kV was utilized to reduce the radiation dose to as low as reasona dominguez achievable. INDICATION: 83-year-old man with hydron ephrosis. COMPARISON: Chest, abdomen, and pelvis CT 08/31/2019. FINDINGS: ABSENCE OF INTRAVENOUS CONTRAST DECREAS ES SENSITIVITY FOR DETECTION OF FOCAL LESIONS AND VASCULAR PATHOLOGY . LOWER THORAX: Persistent small-moderate bilateral pleural effusions with adjacent relaxation atelectasis in both lower lobes. No significant change in the small pericar dial effusion. Atherosclerotic coronary artery calcifications. HEPATOBILIARY: No focal hepatic lesions . Prior cholecystectomy. No biliary ductal dilatation. SPLEEN: Unchanged prominent spleen mindy ures 13.9 cm in the craniocaudal dimension. PANCREAS: Unchanged subcentimeter hypod ensity in the pancreatic body may represent a cystic lesion such as a sidebranch intraductal papillary mucinous neoplasm (IPMN); fol low-up abdomen MRI or CT with and without intravenous contrast ([facility]) may be obtained in 12 months for reassessment. No ductal dilatation. ADRENALS: No adrenal nodules. KIDNEYS/URETERS: Resolved right hydrone phrosis. Unchanged subcentimeter left renal cyst. PELVIC ORGANS/BLADDER: Air within the b ladder lumen. Prostate and seminal vesicles are grossly unremarkab le. PERITONEUM/RETROPERITONEUM: No free air or fluid. Unchanged mild fat stranding in the left lower quadrant ad jacent to the external iliac vessels and the left inguinal canal. LYMPH NODES: No lymphadenopathy. VESSELS: Atherosclerotic vascular calci fications in the abdominal aorta and branch vessels without aneury sm. GI TRACT: No distention or wall thicken ing. Colonic diverticula. BONES AND SOFT TISSUES: Degenerative ch anges of the visualized spine and both hips. 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 Partially visualized hardware in the ri ght femur. Unchanged hypodense structure in the right inguinal canal m ay represent fluid or the right testicle; this finding may be cor related with physical examination or scrotal ultrasound. IMPRESSION: Resolved right hydronephrosis. Air within the bladder lumen, likely re lated to recent catheterization/instrumentation. Otherwise, no significant change in the abdomen or pelvis since 08/31/2019. Signed: Kelly Dhillon MD Report Verified Date/Time: 09/05/2019 17:38:46 Reading Location: [facility] B1 C013Y CT Body Reading Room Procedure Note Interface, External Ris In - 09/05/2019 5:40 PM CDT FINAL REPORT TECHNIQUE: CT of the abdomen and pelvis WITHOUT intravenous contrast and WITH oral contrast. Dose modulation, iterative reconstruction, and/or weight-based adjustment of the mA/kV was utilized to reduce the radiation dose to as low as reasonably achievable. INDICATION: 83-year-old man with hydronephrosis. COMPARISON: Chest, abdomen, and pelvis CT 08/31/2019. FINDINGS: ABSENCE OF INTRAVENOUS CONTRAST DECREASES SENSITIVITY FOR DETECTION OF FOCAL LESIONS AND VASCULAR PATHOLOGY. LOWER THORAX: Persistent small-moderate bilateral pleural effusions with adjacent relaxation atelectasis in both lower lobes. No significant change in the small pericardial effusion. Atherosclerotic coronary artery calcifications. HEPATOBILIARY: No focal hepatic lesions. Prior cholecystectomy. No biliary ductal dilatation. SPLEEN: Unchanged prominent spleen measures 13.9 cm in the craniocaudal dimension. PANCREAS: Unchanged subcentimeter hypodensity in the pancreatic body may represent a cystic lesion such as a sidebranch intraductal papillary mucinous neoplasm (IPMN); follow-up abdomen MRI or CT with and without intravenous contrast (pancreatic protocol) may be obtained in 12 months for reassessment. No ductal dilatation. ADRENALS: No adrenal nodules. KIDNEYS/URETERS: Resolved right hydronephrosis. Unchanged subcentimeter left renal cyst. PELVIC ORGANS/BLADDER: Air within the bladder lumen. Prostate and seminal vesicles are grossly unremarkable. PERITONEUM/RETROPERITONEUM: No free air or fluid. Unchanged mild fat stranding in the left lower quadrant adjacent to the external iliac vessels and the left inguinal canal. LYMPH NODES: No lymphadenopathy. VESSELS: Atherosclerotic vascular calcifications in the abdominal aorta and branch vessels without aneurysm. GI TRACT: No distention or wall thickening. Colonic diverticula. BONES AND SOFT TISSUES: Degenerative changes of the visualized spine and both hips. 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 Partially visualized hardware in the right femur. Unchanged hypodense structure in the right inguinal canal may represent fluid or the right testicle; this finding may be correlated with physical examination or scrotal ultrasound. IMPRESSION: Resolved right hydronephrosis. Air within the bladder lumen, likely related to recent catheterization/instrumentation. Otherwise, no significant change in the abdomen or pelvis since 08/31/2019. Signed: Kelly Dhillon MD Report Verified Date/Time: 09/05/2019 17:38:46 Reading Location: [facility] B1 C013Y CT Body Reading Room Performing Organization Address City/State/Zipcode Ph one Number [facility] * Urinalysis without Microscopic (09/05/2019 10:49 AM CDT) Color, UA Yellow [facility] Clarity, UA Clear [facility] Specific 1.015 1.001 - 1.035 [facility] [place], [facility] pH, UA 8.0 5.0 - 8.0 [facility] Protein, UA 20 mg/dL (A) Negative [facility] Glucose, UA Negative Negative [facility] Ketones, UA Negative Negative [facility] Bilirubin, UA Negative Negative [facility] Blood, UA Negative Negative [facility] Nitrite, UA Negative Negative [facility] Leukocytes, UA Negative Negative [facility] Urobilinogen, 2.0 (H) 0.2 - 1.0 mg/dL [facility] Specimen Source [facility] Specimen Urine Narrative Performed At Reinstatement Clerk ID - [auto] [facility] Reinstatement Clerk ID - tech [facility] Reinstatement Clerk ID - tech Performing Organization Address [facility] Ph one Number [place] [phone] [place] [address] * Urea Nitrogen, random urine (09/05/2019 10:49 AM CDT) Urea Nitrogen, 601 mg/dL [facility] Specimen Urine Narrative Performed At Reference Range: No Normals [facility] Reinstatement Clerk ID - [facility] Performing Organization Address City/[facility] Ph one Number [place] [address] [place] [address] * Sodium, random urine (09/05/2019 10:49 AM CDT) Sodium Urine 106 meq/L [facility] Specimen Urine Narrative Performed At Reference Range: No Normals [facility] Reinstatement Clerk ID - [facility] Performing Organization Address City/[facility] Ph one Number [facility] [address] [place] [address] 0 [phone] [place] [address] * Creatinine, random urine (09/05/2019 10:49 AM CDT) Creatinine, Ur 102.9 mg/dL [facility] Specimen Urine Narrative Performed At Reference Range: No Normals [facility] Reinstatement Clerk ID - [facility] Performing Organization Address [facility] Center/[facility] Ph one Number [facility] [address] [place] [address] 0 [phone] [place] [address] * Blood gas, venous (09/05/2019 6:10 AM CDT) Only the most recent of 5 results within the time period is included. pH, Evangelist 7.54 (H) 7.32 - 7.42 [facility] pCO2, Evangelist 45 41 - 51 mmHg [facility] pO2, Evangelist 49 (H) 25 - 40 mmHg [facility] O2 Sat, Evangelist 90.7 (H) 40.0 - 70.0 % [facility] HCO3, Evangelist 38 (H) 21 - 29 mmol/L [facility] Base Excess, 13.8 (H) -2.0 - 3.0 mmol/L [facility] Patient 35.6 C [facility] FIO2 21.0 % [facility] Specimen Blood - Entire left upper arm (body structure) Performing Organization Address [facility] Ph one Number [place] [address] 0 [phone] [place] [address] * Calcium, Ionized (09/04/2019 5:01 PM CDT) Only the most recent of 13 results within the time period is included. Calcium, Ion 1.11 (L) 1.12 - 1.27 mmol/L [facility] pH, Blood 7.47 [facility] Specimen Blood Narrative Performed At Check serum Ionized Calcium level after 4 hours after IV Calcium replacement. [facility] Performing Organization Address City/State/Zipcode Ph one Number [facility] [address] [place], [place] [address] [facility] * Potassium (09/04/2019 5:01 PM CDT) Only the most recent of 5 results within the time period is included. Potassium 4.1Comment: Specimen slightly 3.5 - 5.1 meq/L [facility] hemolyzed [facility] Specimen Blood Narrative Performed At Reinstatement Clerk HUSSEIN SPENCE [facility] Performing Organization Address [facility] Ph one Number [address] [facility] * ECG 12 lead (09/03/2019 6:10 AM CDT) Only the most recent of 6 results within the time period is included. Specimen Narrative Performed At Ventricular Rate 72 BPM GE MUSE Atrial Rate 72 BPM P-R Interval 162 ms QRS Duration 106 ms Q-T Interval 558 ms QTC Calculation(Bazett) 611 ms P [place] 76 degrees R [place] 46 degrees T [place] 83 degrees Normal sinus rhythm Possible Inferior infarct , age undeter mined ST & T wave abnormality, consider anter olateral ischemia Prolonged QT Abnormal ECG When compared with ECG of 31-AUG-2019 1 2:28, T wave inversion now evident in Inferio r leads Confirmed by MD JOSEPH, ALAN Funk ([id number]) on 09/03/2019 6:45:13 AM Procedure Note Interface, External Ris In - 09/03/2019 6:45 AM CDT Ventricular Rate 72 BPM Atrial Rate 72 BPM P-R Interval 162 ms QRS Duration 106 ms Q-T Interval 558 ms QTC Calculation(Bazett) 611 ms P [place] 76 degrees R [place] 46 degrees T [place] 83 degrees Normal sinus rhythm Possible Inferior infarct , age undetermined ST & T wave abnormality, consider anterolateral ischemia Prolonged QT Abnormal ECG When compared with ECG of 31-AUG-2019 12:28, T wave inversion now evident in Inferior leads Confirmed by MD JOSEPH, ALAN Funk ([id number]) on 09/03/2019 6:45:13 AM Performing Organization Address City/[facility] Ph one Number YASHIRA KHAN * Blood gas, arterial (09/03/2019 5:00 AM CDT) Only the most recent of 13 results within the time period is included. pH, Arterial 7.53 (H) 7.35 - 7.45 [facility] pCO2, Arterial 51 (H) 35 - 45 mmHg [facility] pO2, Arterial 147 (H) 80 - 90 mmHg [facility] O2 Sat, 99.1 (H) 96.0 - 97.0 % [facility] HCO3, Arterial 42 (HH) 21 - 29 mmol/L [facility] Base Excess, 17.1 (H) -2.0 - 3.0 mmol/L [facility] Patient 37.0 C [facility] FIO2 35.0 % [facility] Specimen Blood, Arterial Performing Organization Address [facility] Ph one Number [place] [address] [facility] * Hepatic function panel (09/03/2019 5:00 AM CDT) Protein, Total 6.9 6.0 - 8.3 gm/dL [facility] Albumin 3.4 (L) 3.5 - 5.0 g/dL [facility] Total Bilirubin 0.8 0.2 - 1.2 mg/dL [facility] Bilirubin, 0.5 0.1 - 0.5 mg/dL [facility] Alkaline 84 40 - 150 U/L [facility] AST 33 5 - 34 U/L [facility] ALT 22 6 - 55 U/L [facility] Specimen Blood Narrative Performed At Reinstatement Clerk ID - PIAYA L [facility] Performing Organization Address City/State/Zipcode Ph one Number [facility] [address] [place], [place] [address] [facility] [facility] * CT abdomen/pelvis with IV contrast (08/31/2019 4:29 PM CDT) Specimen Narrative Performed At FINAL REPORT [employer] TECHNIQUE: CT of the chest, abdomen, an d pelvis WITH intravenous contrast and WITHOUT oral contrast. Dos e modulation, iterative reconstruction, and/or weight-based adj ustment of the mA/kV was utilized to reduce the radiation dose t o as low as reasonably achievable. INDICATION: Pericardial effusion. Obstr uctive pulmonary disease, acute respiratory insufficiency. Evalua te for malignancy COMPARISON: None. FINDINGS: LINES/TUBES: None. LUNGS AND AIRWAYS: There are multiple t ree-in-bud opacities of the anterior right upper lobe. Near complet e collapse of both lower lobes. Multiple calcified granulomas in both lower lobes. PLEURA: Moderate sized bilateral pleura l effusions. HEART AND MEDIASTINUM: The visualized t hyroid gland is normal. No significant mediastinal, hilar, or axil hailey lymphadenopathy. Device in the left atrial appendage. Marked co ronary arterial calcifications. The left atrium is dila jose c. Moderate calcification of the thoracic aorta. Small pericardial e ffusion. HEPATOBILIARY: No focal hepatic lesions . Prior cholecystomy. No biliary ductal dilatation. SPLEEN: No splenomegaly. PANCREAS: No focal masses or ductal dil atation. Hypodensity in the pancreatic body measures 0.6 cm on axia l image 63. ADRENALS: No adrenal nodules. KIDNEYS/URETERS: Mild right hydronephro sis. There is hydroureter to the level of the right common iliac art catarino. The ureters likely compressed between the artery and the b ladder at this level. No stones or masses. A left lower pole sim ple renal cyst measures 0.5 cm. PELVIC ORGANS/BLADDER: The bladder is d istended. Prior TURP. PERITONEUM/RETROPERITONEUM: No free air or fluid. LYMPH NODES: No lymphadenopathy. VESSELS: Marked calcification of the ao rtoiliac vasculature. GI TRACT: No distention or wall thicken ing. Mild diverticulosis of the sigmoid colon. BONES AND SOFT TISSUES: Small-volume santa bcutaneous gas in the left upper chest subcutaneous tissues. Subac rosio, healing left posterior ninth and 10th rib fractures. Old, heal ed posterior eighth and 11th rib fractures. The bones are diffusely demineralized. Intramedullary mckenzie in the right proximal femur. Severe degenerati ve disc changes of the lumbar spine. There is a soft tissue structure retrac jose c into the right ankle. This may be atrophic testicle but is indeter minate. IMPRESSION: 1.No definite findings of malignancy in the chest, abdomen, or pelvis. 2.The tree-in-bud opacities of the ante rior right upper lobe are concerning for infection. 3.There is a soft tissue structure retr acted into the right inguinal canal. This may be an atrophic testicle . However, further evaluation with physical examination is recommende d. 4.There is mild right hydronephrosis wi th a transition of the ureter at the iliac vasculature where a disten ded bladder likely compresses the ureter. 5.Small pericardial effusion. 6.Moderate sized bilateral pleural effu sions with near complete collapse of both lower lobes. 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 No ductal dilation to suggest malignant tr ansformation. A follow-up MRI of the abdomen with and without intrave nous contrast with MRCP is recommended in one year to document sta bility. 8.The subcutaneous gas in the left uppe r chest is a nonspecific finding. Signed: Shoaib Coronado MD Report Verified Date/Time: 08/31/2019 17:17:48 Reading Location: [facility] Reading Room - [place] [id number] Procedure Note Interface, External Ris In - 08/31/2019 5:19 PM CDT FINAL REPORT TECHNIQUE: CT of the chest, abdomen, and pelvis WITH intravenous contrast and WITHOUT oral contrast. Dose modulation, iterative reconstruction, and/or weight-based adjustment of the mA/kV was utilized to reduce the radiation dose to as low as reasonably achievable. INDICATION: Pericardial effusion. Obstructive pulmonary disease, acute respiratory insufficiency. Evaluate for malignancy COMPARISON: None. FINDINGS: LINES/TUBES: None. LUNGS AND AIRWAYS: There are multiple tree-in-bud opacities of the anterior right upper lobe. Near complete collapse of both lower lobes. Multiple calcified granulomas in both lower lobes. PLEURA: Moderate sized bilateral pleural effusions. HEART AND MEDIASTINUM: The visualized thyroid gland is normal. No significant mediastinal, hilar, or axillary lymphadenopathy. Device in the left atrial appendage. Marked coronary arterial calcifications. The left atrium is dilated. Moderate calcification of the thoracic aorta. Small pericardial effusion. HEPATOBILIARY: No focal hepatic lesions. Prior cholecystomy. No biliary ductal dilatation. SPLEEN: No splenomegaly. PANCREAS: No focal masses or ductal dilatation. Hypodensity in the pancreatic body measures 0.6 cm on axial image 63. ADRENALS: No adrenal nodules. KIDNEYS/URETERS: Mild right hydronephrosis. There is hydroureter to the level of the right common iliac artery. The ureters likely compressed between the artery and the bladder at this level. No stones or masses. A left lower pole simple renal cyst measures 0.5 cm. PELVIC ORGANS/BLADDER: The bladder is distended. Prior TURP. PERITONEUM/RETROPERITONEUM: No free air or fluid. LYMPH NODES: No lymphadenopathy. VESSELS: Marked calcification of the aortoiliac vasculature. GI TRACT: No distention or wall thickening. Mild diverticulosis of the sigmoid colon. BONES AND SOFT TISSUES: Small-volume subcutaneous gas in the left upper chest subcutaneous tissues. Subacute, healing left posterior ninth and 10th rib fractures. Old, healed posterior eighth and 11th rib fractures. The bones are diffusely demineralized. Intramedullary mckenzie in the right proximal femur. Severe degenerative disc changes of the lumbar spine. There is a soft tissue structure retracted into the right ankle. This may be atrophic testicle but is indeterminate. IMPRESSION: 1.No definite findings of malignancy in the chest, abdomen, or pelvis. 2.The tree-in-bud opacities of the anter ior right upper lobe are concerning for infection. 3.There is a soft tissue structure retra cted into the right inguinal canal. This may be an atrophic testicle. However, further evaluation with physical examination is recommended. 4.There is mild right hydronephrosis wit h a transition of the ureter at the iliac vasculature where a distended bladder likely compresses the ureter. 5.Small pericardial effusion. 6.Moderate sized bilateral pleural effus ions with near complete collapse of both lower lobes. 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 No ductal dilation to suggest malignant transformation. A follow-up MRI of the abdomen with and without intravenous contrast with MRCP is recommended in one year to document stability. 8.The subcutaneous gas in the left upper chest is a nonspecific finding. Signed: Shoaib Coronado MD Report Verified Date/Time: 08/31/2019 17:17:48 Reading Location: [facility] Diagnostic Imaging Reading Room - [place] [id number] Performing Organization Address City/State/Zipcode Ph one Number [employer] * CT chest with IV contrast (08/31/2019 4:29 PM CDT) Specimen Narrative Performed At FINAL REPORT [employer] TECHNIQUE: CT of the chest, abdomen, an d pelvis WITH intravenous contrast and WITHOUT oral contrast. Dos e modulation, iterative reconstruction, and/or weight-based adj ustment of the mA/kV was utilized to reduce the radiation dose t o as low as reasonably achievable. INDICATION: Pericardial effusion. Obstr uctive pulmonary disease, acute respiratory insufficiency. Evalua te for malignancy COMPARISON: None. FINDINGS: LINES/TUBES: None. LUNGS AND AIRWAYS: There are multiple t ree-in-bud opacities of the anterior right upper lobe. Near complet e collapse of both lower lobes. Multiple calcified granulomas in both lower lobes. PLEURA: Moderate sized bilateral pleura l effusions. HEART AND MEDIASTINUM: The visualized t hyroid gland is normal. No significant mediastinal, hilar, or axil hailey lymphadenopathy. Device in the left atrial appendage. Marked co ronary arterial calcifications. The left atrium is dila jose c. Moderate calcification of the thoracic aorta. Small pericardial e ffusion. HEPATOBILIARY: No focal hepatic lesions . Prior cholecystomy. No biliary ductal dilatation. SPLEEN: No splenomegaly. PANCREAS: No focal masses or ductal dil atation. Hypodensity in the pancreatic body measures 0.6 cm on axia l image 63. ADRENALS: No adrenal nodules. KIDNEYS/URETERS: Mild right hydronephro sis. There is hydroureter to the level of the right common iliac art catarino. The ureters likely compressed between the artery and the b ladder at this level. No stones or masses. A left lower pole sim ple renal cyst measures 0.5 cm. PELVIC ORGANS/BLADDER: The bladder is d istended. Prior TURP. PERITONEUM/RETROPERITONEUM: No free air or fluid. LYMPH NODES: No lymphadenopathy. VESSELS: Marked calcification of the ao rtoiliac vasculature. GI TRACT: No distention or wall thicken ing. Mild diverticulosis of the sigmoid colon. BONES AND SOFT TISSUES: Small-volume santa bcutaneous gas in the left upper chest subcutaneous tissues. Subac rosio, healing left posterior ninth and 10th rib fractures. Old, heal ed posterior eighth and 11th rib fractures. The bones are diffusely demineralized. Intramedullary mckenzie in the right proximal femur. Severe degenerati ve disc changes of the lumbar spine. There is a soft tissue structure retrac jose c into the right ankle. This may be atrophic testicle but is indeter minate. IMPRESSION: 1.No definite findings of malignancy in the chest, abdomen, or pelvis. 2.The tree-in-bud opacities of the ante rior right upper lobe are concerning for infection. 3.There is a soft tissue structure retr acted into the right inguinal canal. This may be an atrophic testicle . However, further evaluation with physical examination is recommende d. 4.There is mild right hydronephrosis wi th a transition of the ureter at the iliac vasculature where a disten ded bladder likely compresses the ureter. 5.Small pericardial effusion. 6.Moderate sized bilateral pleural effu sions with near complete collapse of both lower lobes. 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 No ductal dilation to suggest malignant tr ansformation. A follow-up MRI of the abdomen with and without intrave nous contrast with MRCP is recommended in one year to document sta bility. 8.The subcutaneous gas in the left uppe r chest is a nonspecific finding. Signed: Shoaib Coronado MD Report Verified Date/Time: 08/31/2019 17:17:48 Reading Location: [facility] Reading Room - [place] [id number] Procedure Note Interface, External Ris In - 08/31/2019 5:19 PM CDT FINAL REPORT TECHNIQUE: CT of the chest, abdomen, and pelvis WITH intravenous contrast and WITHOUT oral contrast. Dose modulation, iterative reconstruction, and/or weight-based adjustment of the mA/kV was utilized to reduce the radiation dose to as low as reasonably achievable. INDICATION: Pericardial effusion. Obstructive pulmonary disease, acute respiratory insufficiency. Evaluate for malignancy COMPARISON: None. FINDINGS: LINES/TUBES: None. LUNGS AND AIRWAYS: There are multiple tree-in-bud opacities of the anterior right upper lobe. Near complete collapse of both lower lobes. Multiple calcified granulomas in both lower lobes. PLEURA: Moderate sized bilateral pleural effusions. HEART AND MEDIASTINUM: The visualized thyroid gland is normal. No significant mediastinal, hilar, or axillary lymphadenopathy. Device in the left atrial appendage. Marked coronary arterial calcifications. The left atrium is dilated. Moderate calcification of the thoracic aorta. Small pericardial effusion. HEPATOBILIARY: No focal hepatic lesions. Prior cholecystomy. No biliary ductal dilatation. SPLEEN: No splenomegaly. PANCREAS: No focal masses or ductal dilatation. Hypodensity in the pancreatic body measures 0.6 cm on axial image 63. ADRENALS: No adrenal nodules. KIDNEYS/URETERS: Mild right hydronephrosis. There is hydroureter to the level of the right common iliac artery. The ureters likely compressed between the artery and the bladder at this level. No stones or masses. A left lower pole simple renal cyst measures 0.5 cm. PELVIC ORGANS/BLADDER: The bladder is distended. Prior TURP. PERITONEUM/RETROPERITONEUM: No free air or fluid. LYMPH NODES: No lymphadenopathy. VESSELS: Marked calcification of the aortoiliac vasculature. GI TRACT: No distention or wall thickening. Mild diverticulosis of the sigmoid colon. BONES AND SOFT TISSUES: Small-volume subcutaneous gas in the left upper chest subcutaneous tissues. Subacute, healing left posterior ninth and 10th rib fractures. Old, healed posterior eighth and 11th rib fractures. The bones are diffusely demineralized. Intramedullary mckenzie in the right proximal femur. Severe degenerative disc changes of the lumbar spine. There is a soft tissue structure retracted into the right ankle. This may be atrophic testicle but is indeterminate. IMPRESSION: 1.No definite findings of malignancy in the chest, abdomen, or pelvis. 2.The tree-in-bud opacities of the anter ior right upper lobe are concerning for infection. 3.There is a soft tissue structure retra cted into the right inguinal canal. This may be an atrophic testicle. However, further evaluation with physical examination is recommended. 4.There is mild right hydronephrosis wit h a transition of the ureter at the iliac vasculature where a distended bladder likely compresses the ureter. 5.Small pericardial effusion. 6.Moderate sized bilateral pleural effus ions with near complete collapse of both lower lobes. 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 No ductal dilation to suggest malignant transformation. A follow-up MRI of the abdomen with and without intravenous contrast with MRCP is recommended in one year to document stability. 8.The subcutaneous gas in the left upper chest is a nonspecific finding. Signed: Shoaib Coronado MD Report Verified Date/Time: 08/31/2019 17:17:48 Reading Location: [facility] Diagnostic Imaging Reading Room - [place] [address] Performing Organization Address [facility] Ph one Number GE RIS * STOOL PATH CHARGE (08/30/2019 9:50 PM CDT) Pathogen exam Done [facility] Specimen Stool - Feces (substance) Performing Organization Address [facility] one Number [address] [facility] * Shiga Toxin Screen (08/30/2019 9:50 PM CDT) Shiga toxin 1 Not detected Not detected [facility] Shiga toxin 2 Not detected Not detected [facility] Specimen Stool - Feces (substance) Performing Organization Address [facility] one Number [address] [facility] * Stool culture + Shiga toxin (08/30/2019 9:50 PM CDT) Result No Salmonella, Shigella or [facility] Specimen Stool - Feces (substance) Performing Organization Address [facility]/Zipcode Ph one Number [place] [address] [facility] * Vancomycin level, trough (08/30/2019 10:29 AM CDT) Vancomycin Tr 12.4 10.0 - 20.0 ug/mL [facility] Specimen Blood Narrative Performed At Reinstatement Clerk ID - AAHAMID [facility] Performing Organization Address City/State/Zipcode Ph one Number [place] [address] [facility] * Manual Differential (08/30/2019 4:14 AM CDT) Only the most recent of 2 results within the time period is included. % Neutros 92 % [facility] % Lymphs 2 % [facility] % Monos 5 % [facility] % Eos 1 % [facility] # Neutros 15.82 (H) 1.78 - 5.38 K/ul [facility] # Lymphs 0.34 (L) 1.32 - 3.57 K/ul [facility] # Monos 0.86 (H) 0.30 - 0.82 K/uL [facility] # Eos 0.17 0.04 - 0.54 K/uL [facility] Total Counted 100 [facility] Platelet Normal [facility] Toxic Present [facility] Polychromasia 1+ few [facility] Hypochromia 1+ few [facility] Anisocytosis 1+ few [facility] Poikilocytes 1+ few [facility] Dallas Cells 1+ few [facility] Artifact Present [facility] Platelet Conc Adequate [facility] Specimen Blood Narrative Performed At Reinstatement Clerk ID - [id number] [facility] Reinstatement Clerk ID - Kristine Noble [facility] User comments: Slide comments: Performing Organization Address [facility] Ph one Number [address] [facility] * ECHOCARDIOGRAM REPORT - SCAN (08/29/2019 9:22 PM CDT) Narrative Performed At This result has an attachment that is n ot available. * Lactic acid, venous (08/29/2019 12:05 PM CDT) Only the most recent of 2 results within the time period is included. Lactate, Venous 1.28Comment: Specimen slightly 0.50 - 2.20 mm ol/L [facility] hemolyzed [facility] Specimen Blood Narrative Performed At Reinstatement Clerk ID - JOSEL M [facility] Performing Organization Address [facility] Ph one Number [address] [facility] * Blood Culture - Routine (Left Venipuncture) (08/29/2019 12:05 PM CDT) Only the most recent of 4 results within the time period is included. Result No growth in 5 days [facility] Specimen Blood - Entire left upper arm (body structure) Performing Organization Address [facility] one Number [address] 7[address] [facility] * 2D Echo W/Doppler(CW/PW/Color) (08/29/2019 8:31 AM CDT) Ejection [facility] ECHO Fraction HEARTLAB [facility] Specimen Narrative Performed At Transthoracic Echocardiography Report (TTE) [facility] ECH O HEARTLAB Demographics [facility] Patient Name GRETTA ACUÑA Date o f Study 08/29/2019 Gender Male Visit Number [id number] Race Unknown Ro om Number [id number] Number Date of 1935 Refe rring Physician Belem Restrepo Age 83 year(s) 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 Clinical History AFIB, Pericardial effusion, Hypotension , CAD, COPD, HTN S/P Pericardial window (08.21.2019) HGB 11.8 HCT 36.8 % Contrast Medium: Definity. Height: 73 inches Weight: 87.54 kg (193 lbs) BSA: 2.12 m^2 BMI: 25.46 kg/m^2 HR: 65 bpm BP: 117/45 mmHg Summary 1. Normal LV size and function. All seg ments contract normally, LV EF is lower limits of normal (50-55% ) . 2. RV chamber size is mildly enlarged . Global RV systolic function is normal . 3. Grade 3 diastolic dysfunction (marke d elevated LA pressure). Previous Study In comparison with the prior exam the following changes are noted: LV systolic function has improved . Signature Findings Technical Quality: Technically difficul t exam. Left Ventricle The left evangelist tricle is chamber size (by vol index) is n ormal (male - LVED vol - 34-74ml/m2). LV s eptal thickness is normal (0.6-1.1cm). LV post erior wall thickness is mildly increased (1.2 -1.4cm) . All of the LV segments contract normally . Glob al LV systolic function lower limits of normal . LVEF by Atkinson's method of disk assessment is lowe r limits of normal (50-55%) . The LVEF was measured using Atkinson's bi-plane meth od of disk . LV e ndocardium is adequately visualized with IV ultr asound enhancing agent. Grad e 3 diastolic dysfunction (marked elevated LA pres sure). Left Atrium LA size is severely enlarged (>48 ml/m2) . Right Ventricle RV chamber s ize is mildly enlarged . Glob al RV systolic function is normal . Right Atrium RA cavity s ize appears normal . Aortic Valve Mild AoV cu sp calcification. AoV cusp mobility is normal . Mitral Valve Mild MV anastasiia flet calcification. Mild mitral annular calcification. Trac e mitral regurgitation. Tricuspid Valve Mild TV leaf let thickening. Trace TR. Unab le to estimate peak systolic PA pressure; inad equate TR velocity signal. Pulmonic Valve Normal PV st ructure and function by limited views and Doppler. Aorta Aortic root size (SInus of Valsalva diameter) is norm al . Proximal ascending aorta size mildly dila jose c . 4 cm Pericardium A small pe ricardial effusion is present anterior. IVC/SVC/PA/PV/Pleural A left pleural effusion is noted. Pulm onary vein flow is consistent with increased LAP . The estimated RA pressure by IVC dynamics 5-10mmHg . Chambers/Structures Left Atrium LA Volume: 110.51 ml LA Area: 29.1 cm^2 LA Vol. Index: 52 ml/m^2 Left Ventricle LVIDd: 5.25 cm LV Septum Diastolic: 1.05 cm LV PW Diastolic: 1.17 cm LVEDV Atkinson's:122.75 ml LVESV Atkinson's:56.42 ml LVEF Atkinson's: 54 % LVEDVI: 58 ml/m^2 LVESVI: 27 ml/m^2 LVOT Diameter: 2.24 cm Right Atrium RA Vol. (Sngl Plane): 52.46 ml Right Ventricle RV Diast Dim.: 3.54 cm Aorta Ao Root S of Shawna.: 3.41 cm Ascending Aorta: 3.96 cm Doppler/Quantitative Measurements Mitral Valve MV Peak E-Wave: 1.1 m/s MV Peak A-Wave: 0.34 m/s E/A Ratio: 3.22 Mean Velocity: 0.61 m/s Peak Gradient: 4.86 mmHg Mean Gradient: 1.84 mmHg Deceleration Time: 157.1 msec Area (continuity): 2.06 cm^2 MV VTI: 33.83 cm MV Derrick. Peak: 1.24 m/s Tissue Doppler E' Septal Velocity: 0.06 m/s E/E': 19.68 E' Lateral Velocity: 0.05 m/s Aortic Valve Peak Velocity: 0.89 m/s Mean Velocity: 0.59 m/s Peak Gradient: 3.16 mmHg Mean Gradient: 1.64 mmHg AV Area (continuity): 4.38 cm^2 Area (2D): 2.76 cm^2 AV VTI: 15.89 cm AV DVI: 1.11 LVOT Peak Velocity: 0.86 m/s Peak Gradient: 2.93 mmHg Mean Velocity: 0.54 m/s Mean Gradient: 1.38 mmHg LVOT Diameter: 2.24 cm LVOT VTI: 17.68 cm LVOT Area: 3.94 cm^2 LVOT SV:69.64 ml LVOT CO: 4.53 l/min LVOT CI: 2.14 l/min/m^2 Procedure Note Interface, External Ris In - 08/29/2019 12:14 PM CDT Transthoracic Echocardiography Report (TTE) Demographics Patient Name GRETTA ACUÑA Date of Study 08/29/2019 Gender Male Visit Number [id number] Race Unknown Room Number C824 Number Date of 1935 Referring Physician Belem Restrepo Age 83 year(s) 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 Clinical History AFIB, Pericardial effusion, Hypotension, CAD, COPD, HTN S/P Pericardial window (08.21.2019) HGB 11.8 HCT 36.8 % Contrast Medium: Definity. Height: 73 inches Weight: 87.54 kg (193 lbs) BSA: 2.12 m^2 BMI: 25.46 kg/m^2 HR: 65 bpm BP: 117/45 mmHg Summary 1. Normal LV size and function. All segments contract normally, LV EF is lower limits of normal (50-55%) . 2. RV chamber size is mildly enlarged . Global RV systolic function is normal . 3. Grade 3 diastolic dysfunction (marked elevated LA pressure). Previous Study In comparison with the prior exam 08-28-19 the following changes are noted: LV systolic function has improved . Signature Findings Technical Quality: Technically difficult exam. Left Ventricle The left ventricle is chamber size (by vol index) is normal (male - LVED vol - 34-74ml/m2). LV septal thickness is normal (0.6-1.1cm). LV posterior wall thickness is mildly increased (1.2-1.4cm) . All of the LV segments contract normally . Global LV systolic function lower limits of normal . LVEF by Atkinson's method of disk assessment is lower limits of normal (50-55%) . The LVEF was measured using Atkinson's bi-plane method of disk . LV endocardium is adequately visualized with IV ultrasound enhancing agent. Grade 3 diastolic dysfunction (marked elevated LA pressure). Left Atrium LA size is severely enlarged (>48 ml/m2) . Right Ventricle RV chamber size is mildly enlarged . Global RV systolic function is normal . Right Atrium RA cavity size appears normal . Aortic Valve Mild AoV cusp calcification. AoV cusp mobility is normal . Mitral Valve Mild MV leaflet calcification. Mild mitral annular calcification. Trace mitral regurgitation. Tricuspid Valve Mild TV leaflet thickening. Trace TR. Unable to estimate peak systolic PA pressure; inadequate TR velocity signal. Pulmonic Valve Normal PV structure and function by limited views and Doppler. Aorta Aortic root size (SInus of Valsalva diameter) is normal . Proximal ascending aorta size mildly dilated . 4 cm Pericardium A small pericardial effusion is present anterior. IVC/SVC/PA/PV/Pleural A left pleural effusion is noted. Pulmonary vein flow is consistent with increased LAP . The estimated RA pressure by IVC dynamics 5-10mmHg . Chambers/Structures Left Atrium LA Volume: 110.51 ml LA Area: 29.1 cm^2 LA Vol. Index: 52 ml/m^2 Left Ventricle LVIDd: 5.25 cm LV Septum Diastolic: 1.05 cm LV PW Diastolic: 1.17 cm LVEDV Atkinson's:122.75 ml LVESV Atkinson's:56.42 ml LVEF Atkinson's: 54 % LVEDVI: 58 ml/m^2 LVESVI: 27 ml/m^2 LVOT Diameter: 2.24 cm Right Atrium RA Vol. (Sngl Plane): 52.46 ml Right Ventricle RV Diast Dim.: 3.54 cm Aorta Ao Root S of Shawna.: 3.41 cm Ascending Aorta: 3.96 cm Doppler/Quantitative Measurements Mitral Valve MV Peak E-Wave: 1.1 m/s MV Peak A-Wave: 0.34 m/s E/A Ratio: 3.22 Mean Velocity: 0.61 m/s Peak Gradient: 4.86 mmHg Mean Gradient: 1.84 mmHg Deceleration Time: 157.1 msec Area (continuity): 2.06 cm^2 MV VTI: 33.83 cm MV Derrick. Peak: 1.24 m/s Tissue Doppler E' Septal Velocity: 0.06 m/s E/E': 19.68 E' Lateral Velocity: 0.05 m/s Aortic Valve Peak Velocity: 0.89 m/s Mean Velocity: 0.59 m/s Peak Gradient: 3.16 mmHg Mean Gradient: 1.64 mmHg AV Area (continuity): 4.38 cm^2 Area (2D): 2.76 cm^2 AV VTI: 15.89 cm AV DVI: 1.11 LVOT Peak Velocity: 0.86 m/s Peak Gradient: 2.93 mmHg Mean Velocity: 0.54 m/s Mean Gradient: 1.38 mmHg LVOT Diameter: 2.24 cm LVOT VTI: 17.68 cm LVOT Area: 3.94 cm^2 LVOT SV:69.64 ml LVOT CO: 4.53 l/min LVOT CI: 2.14 l/min/m^2 Performing Organization Address [facility] one Number [facility] ECHO HEARTLAB [facility] CPACS * Procalcitonin (08/29/2019 3:03 AM CDT) Pathologist [facility] Procalcitonin 0.72 (H) <0.05 ng/mL [facility] Specimen Blood Narrative Performed At SEPSIS RISK (ng/mL) [facility] Low: 0.05-0.50 [facility] Intermediate: 0.51-2.00 High: >=2.01 Performing Organization Address [facility] one Number [address] 7[address] [facility] * POCT-HEMATOCRIT (08/29/2019 12:17 AM CDT) [facility] POC-Hematocrit 38 (L)Comment: : 40 - 50 % [facility] Reinstatement Clerk/Library Attendant ID = [facility] [id number] for [facility] Specimen Blood Performing Organization Address [facility] one Number [address] [facility] * POCT-HEMOGLOBIN (08/29/2019 12:17 AM CDT) [facility] POC-Hemoglobin 12.9 (L)Comment: : TESTED AT 13.0 - 16.8 g/dL [address] [address]: Reinstatement Clerk/Library Attendant ID [facility] = [id number] for [facility] Specimen Blood Performing Organization Address [facility] one Number [address] 7[address] [facility] * POCT-GLUCOSE (08/29/2019 12:17 AM CDT) [facility] POC-Glucose 84Comment: : TESTED AT [facility] 70 - 110 mg/dL [address] [address]: Reinstatement Clerk/Library Attendant ID [facility] = [id number] for PATTI YANGIA Specimen Blood Performing Organization Address [facility] one Number [address] 0 [phone] [place] [address] * POC-Sodium (08/29/2019 12:17 AM CDT) [facility] POC-Sodium 129 (L)Comment: : TESTED AT 135 - 148 meq/L [address] [address]: Reinstatement Clerk/Library Attendant ID [facility] = [id number] for PATTI YANGIA Specimen Blood Performing Organization Address [facility] one Number [address] 0 [phone] [place] [address] * POC-Potassium (08/29/2019 12:17 AM CDT) [facility] POC-Potassium 3.6Comment: : TESTED AT [facility] 3.6 - 5.5 meq/L [address] [address]: Reinstatement Clerk/Library Attendant ID [facility] = [id number] for PATTI YANGIA Specimen Blood Performing Organization Address [facility] one Number [address] 0 [phone] [place] [address] * POC-Calcium ionized (08/29/2019 12:17 AM CDT) [facility] POC-Calcium 1.12Comment: : TESTED AT [facility] 1.12 - 1.27 mmo l/L [facility] Ionized [address] [place] [address]: Reinstatement Clerk/Library Attendant ID [facility] = [id number] for PATTI YANGIA Specimen Blood Performing Organization Address [facility] one Number [address] 0 [phone] [place] [address] * POC-Blood gases, arterial (08/29/2019 12:17 AM CDT) Pathologist [facility] Temp. [facility] Celsius-POC [facility] FIO2-POC 28 [facility] pH, 7.470 (H) 7.350 - 7.450 [facility] Arterial-POC [facility] PCO2, 43.0 35.0 - 45.0 mm Hg [facility] Arterial-POC [facility] PO2, 108.0 (H) 80.0 - 90.0 mm Hg [facility] Arterial-POC [facility] SO2, 98.0 (H) 96.0 - 97.0 % [facility] Arterial-POC [facility] HCO3, 31.3 (H) 21.0 - 29.0 meq/L [facility] Arterilal-POC [facility] BE, 8.0 (H)Comment: : TESTED AT -2.0 - 3.0 meq/L [facility] ArterialPOC [address] [address]: Reinstatement Clerk/Library Attendant ID [facility] = [id number] for RENAE YANG Specimen Blood Performing Organization Address City/State/[facility] one Number [address] [facility] * ECHOCARDIOGRAM REPORT - SCAN (08/28/2019 9:20 PM CDT) Narrative Performed At This result has an attachment that is n ot available. 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 Clinical History HGB 11.5 HCT 35.5 % AFIB COPD PERICARDIAL EFFUSIOBN PERICARDIAL WINDOW 08/21/19 HYPOTENSION PCI X 2 HTN FORMER SMOKER Height: 73 inches Weight: 87.54 kg (193 lbs) BSA: 2.12 m^2 BMI: 25.46 kg/m^2 HR: 66 bpm BP: 126/56 mmHg Summary Since the previous echocardiogram on 04/2020, the pericardial effusion has decreased in size. There is a small anterior apical perica rdial effusion. The anterior effusion measures 0.8cm in its greatest end-diastolic diameter A trace posterior effusion is visualized. The LV endocardium is partially visuali zed. The left ventricle is chamber size (by vol index) is normal (male - LVED vol - 34-74ml/m2). Normal LV wall thickness. All of the LV segments are mildly hypok inetic . LVEF by qualitative assessment is mildl y reduced (40-44%) . LV diastolic function is indeterminate. Signature Findings Technical Quality: Technically adequate exam. Rhythm/BP Regular s inus rhythm during the exam. Left Ventricle The LV endoc ardium is partially visualized. The left ventricle is chamber size (by vol index) is n ormal (male - LVED vol - 34-74ml/m2). Norm al LV wall thickness. All of the LV segments are mildly hypokinetic . LVEF by qualitative assessment is mildly reduced (40- 44%) . LV d iastolic function is indeterminate. Left Atrium LA size is normal . Right Ventricle The right ve ntricle is not well visualized but does appe ar at least mildly enlarged with mildly reduced syst olic function (TAPSE 1.3cm) Right Atrium RA size is probably normal based on available view s. Aortic Valve Mild AoV cu sp thickening. Mild AoV cusp calcification. Ther e is trace aortic regurgitation. Mitral Valve Mild MV anastasiia flet thickening. Mild mitral annular calcification. Trac e mitral regurgitation. Tricuspid Valve Mild TV leaf let thickening. A tr gerry of tricuspid regurgitation. Pulmonic Valve Normal PV st ructure and function by limited views and Doppler. Pericardium There is a small anterior apical pericardial effu isaac. The anterior effusion measures 0.8cm in its greatest end-diastolic diameter A trace post erior effusion is visualized. IVC/SVC/PA/PV/Pleural The estimated R A pressure by IVC dynamics 5-10mmHg . Chambers/Structures Left Atrium LA Volume: 41.08 ml LA Area: 16.3 cm^2 LA Vol. Index: 19 ml/m^2 Left Ventricle LVIDd: 4.93 cm LVEDV:114.64 ml LV Septum Diastolic: 0.95 cm LV Septum Systolic: 1.05 cm LV PW Diastolic: 0.91 cm LV Length: 8.05 cm LV PW Systolic: 1.1 cm LVEDV Atkinson's:121.93 ml LVEDVI: 58 ml/m^2 LVESV Atkinson's:67.71 ml LVESVI: 32 ml/m^2 LVEF Atkinson's: 44.5 % LVOT Diameter: 2.16 cm Doppler/Quantitative Measurements Aortic Valve Peak Velocity: 1.09 m/s Mean Velocity: 0.75 m/s Peak Gradient: 4.75 mmHg Mean Gradient: 2.57 mmHg AV Area (continuity): 2.33 cm^2 AV VTI: 21.05 cm AV DVI: 0.64 LVOT Peak Velocity: 0.66 m/s Peak Gradient: 1.75 mmHg Mean Velocity: 0.44 m/s Mean Gradient: 0.91 mmHg LVOT Diameter: 2.16 cm LVOT VTI: 13.37 cm LVOT Area: 3.66 cm^2 LVOT SV:48.97 ml LVOT CO: 3.23 l/min LVOT CI: 1.52 l/min/m^2 Procedure Note Interface, External Ris In - 08/28/2019 11:46 AM CDT Transthoracic Echocardiography Report (TTE) Demographics Patient Name GRETTA ACUÑA Date of Study 08/28/2019 Gender Male Visit Number [id number] Race Unknown Room Number C830 Number Date of 1935 Referring Eduardo Shafer MD Physician 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 Clinical History HGB 11.5 HCT 35.5 % AFIB COPD PERICARDIAL EFFUSIOBN PERICARDIAL WINDOW 08/21/19 HYPOTENSION PCI X 2 HTN FORMER SMOKER Height: 73 inches Weight: 87.54 kg (193 lbs) BSA: 2.12 m^2 BMI: 25.46 kg/m^2 HR: 66 bpm BP: 126/56 mmHg Summary Since the previous echocardiogram on 08/22/2019, the pericardial effusion has decreased in size. There is a small anterior apical pericardial effusion. The anterior effusion measures 0.8cm in its greatest end-diastolic diameter A trace posterior effusion is visualized. The LV endocardium is partially visualized. The left ventricle is chamber size (by vol index) is normal (male - LVED vol - 34-74ml/m2). Normal LV wall thickness. All of the LV segments are mildly hypokinetic . LVEF by qualitative assessment is mildly reduced (40-44%) . LV diastolic function is indeterminate. Signature Findings Technical Quality: Technically adequate exam. Rhythm/BP Regular sinus rhythm during the exam. Left Ventricle The LV endocardium is partially visualized. The left ventricle is chamber size (by vol index) is normal (male - LVED vol - 34-74ml/m2). Normal LV wall thickness. All of the LV segments are mildly hypokinetic . LVEF by qualitative assessment is mildly reduced (40-44%) . LV diastolic function is indeterminate. Left Atrium LA size is normal . Right Ventricle The right ventricle is not well visualized but does appear at least mildly enlarged with mildly reduced systolic function (TAPSE 1.3cm) Right Atrium RA size is probably normal based on available views. Aortic Valve Mild AoV cusp thickening. Mild AoV cusp calcification. There is trace aortic regurgitation. Mitral Valve Mild MV leaflet thickening. Mild mitral annular calcification. Trace mitral regurgitation. Tricuspid Valve Mild TV leaflet thickening. A trace of tricuspid regurgitation. Pulmonic Valve Normal PV structure and function by limited views and Doppler. Pericardium There is a small anterior apical pericardial effusion. The anterior effusion measures 0.8cm in its greatest end-diastolic diameter A trace posterior effusion is visualized. IVC/SVC/PA/PV/Pleural The estimated RA pressure by IVC dynamics 5-10mmHg . Chambers/Structures Left Atrium LA Volume: 41.08 ml LA Area: 16.3 cm^2 LA Vol. Index: 19 ml/m^2 Left Ventricle LVIDd: 4.93 cm LVEDV:114.64 ml LV Septum Diastolic: 0.95 cm LV Septum Systolic: 1.05 cm LV PW Diastolic: 0.91 cm LV Length: 8.05 cm LV PW Systolic: 1.1 cm LVEDV Atkinson's:121.93 ml LVEDVI: 58 ml/m^2 LVESV Atkinson's:67.71 ml LVESVI: 32 ml/m^2 LVEF Atkinson's: 44.5 % LVOT Diameter: 2.16 cm Doppler/Quantitative Measurements Aortic Valve Peak Velocity: 1.09 m/s Mean Velocity: 0.75 m/s Peak Gradient: 4.75 mmHg Mean Gradient: 2.57 mmHg AV Area (continuity): 2.33 cm^2 AV VTI: 21.05 cm AV DVI: 0.64 LVOT Peak Velocity: 0.66 m/s Peak Gradient: 1.75 mmHg Mean Velocity: 0.44 m/s Mean Gradient: 0.91 mmHg LVOT Diameter: 2.16 cm LVOT VTI: 13.37 cm LVOT Area: 3.66 cm^2 LVOT SV:48.97 ml LVOT CO: 3.23 l/min LVOT CI: 1.52 l/min/m^2 Performing Organization Address [facility] one Number [facility] ECHO HEARTLAB [facility] * Oxygen saturation, measured (08/25/2019 5:46 PM CDT) Only the most recent of 7 results within the time period is included. O2 Saturation 61.5 % [facility] (Measured) [facility] Specimen Blood Performing Organization Address [facility] one Number [place] [address] 0 [phone] [place] [address] * Lactic Acid, Arterial (08/24/2019 9:00 AM CDT) Only the most recent of 11 results within the time period is included. Lactate, Art 0.8 0.5 - 2.2 mmol/L [facility] Specimen Blood, Arterial Narrative Performed At Reinstatement Clerk ID - [id number] [facility] Performing Organization Address [facility] one Number [place] [address] 0 [phone] [address] * ECHOCARDIOGRAM REPORT - SCAN (08/23/2019 9:12 PM CDT) Narrative Performed At This result has an attachment that is n ot available. * Potassium-Stat Lab (08/23/2019 12:09 PM CDT) Only the most recent of 3 results within the time period is included. Potassium 3.5 (L) 3.6 - 5.5 meq/L [facility] Specimen Blood, Arterial Performing Organization Address [facility] one Number [place] [address] 0 [phone] [place] [address] * Sodium Na-Stat Lab (08/23/2019 12:09 PM CDT) Only the most recent of 3 results within the time period is included. Sodium 135 135 - 148 meq/L [facility] Specimen Blood, Arterial Performing Organization Address [facility] one Number [address] 0 [phone] [place] [address] * Glucose-Stat Lab (08/23/2019 12:09 PM CDT) Only the most recent of 3 results within the time period is included. Glucose 180 (H) 70 - 110 mg/dL [facility] Specimen Blood, Arterial Performing Organization Address [facility] one Number [address] [facility] * HGB/HCT (H&H)-Stat Lab (08/23/2019 12:09 PM CDT) Only the most recent of 3 results within the time period is included. [facility] Hemoglobin 11.6 (L) 13.0 - 16.8 g/dL [facility] Hematocrit 34.0 (L) 40.0 - 50.0 % [facility] Specimen Blood, Arterial Performing Organization Address [facility] one Number [place] [address] 0 [phone] [place] [address] * POC-Glucose meter (08/22/2019 8:03 PM CDT) Only the most recent of 3 results within the time period is included. [facility] POC-Glucose 122 (H)Comment: : TESTED AT 70 - 110 mg/dL [facility] Meter [address] [address]: Reinstatement Clerk/Library Attendant [facility] = [id number] for FLORIAN LUKE Specimen Blood Performing Organization Address [facility] one [place] [address] 0 [phone] [place] [address] * TRANSFUSION SERVICE REPORT - SCAN (08/22/2019 5:54 PM CDT) Narrative Performed At This result has an attachment that is n ot available. * Sputum Culture + Gram Stain (08/22/2019 5:32 PM CDT) Result No growth [facility] Gram Stain 3+ White blood cells seen [facility] Gram Stain 15-20 epithelial cells [facility] Gram Stain No organisms seen [facility] Specimen Sputum - Endotracheal tube, device (physical object) Performing Organization Address City/State/Zipcode Ph one Number [facility] [address] [place], [place] [address] [facility]ENTER * Transesophageal echo (08/22/2019 4:02 PM CDT) Ejection SLEH ECHO Fraction HEARTLAB [facility] Specimen Narrative Performed At Transesophageal Echocardiography Report (LAYNE) DARLEEN [facility]INO [facility] Demographics [facility] Patient Name GRETTA ACUÑA Date of Study 08/22/2019 Gender Male Visit Number [id number] Race Unknown Room Number 2C22 Number Date of 1935 Referring Eduardo Shafer MD Physician 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 Clinical History ARTHRITIS,A-FIB,CANCER,CAD,HTN,THYROID DISEASE,S/P PERICARDIAL WINDOW 08-21-2019 Height: 55 inches Weight: 45.36 kg (100 lbs) BSA: 1.31 m^2 BMI: 23.24 kg/m^2 HR: 75 bpm BP: 103/45 mmHg Summary Limited 2D exam and Doppler exam to add ress study indication. A tgzoqmxx-af-cujba circumferential per icardial effusion is present. The effusion is 1.5cm anteriorly (RV free w all) and 2.8cm posteriorly (LA and basal LV). There is stranding within th e effusion suggesting possible fibrinous component. Tamponade physiology was not assessed i n this limited TTE. No evidence of RV or RA collapse. Signature Findings Rhythm/BP Regular s inus rhythm during the exam. Left Ventricle The global L V systolic function appears low-normal, qual itatively. Left Atrium LA size by qualitative assessment (unable to mindy ure). LA s ize is enlarged . Right Ventricle Based on dawn ited views, the right ventricular steve sarath size and systolic function are within norm al limits. Right Atrium RA size is probably mildly dilated based on avai lable views. Aortic Valve Mild AoV cu sp thickening. Mild AoV cusp calcification. Mitral Valve Mild MV anastasiia flet thickening. Mild mitral annular calcification. Tricuspid Valve TV structure is normal. Pulmonic Valve PV is not we ll visualized. Pericardium A moderate -to-large circumferential pericardial effu isaac is present. The effusion is 1.5cm anteriorly (RV free wall) and 2.8c m posteriorly (LA and basal LV). Ther e is stranding within the effusion suggesting poss ible fibrinous component. Tamp onade physiology was not assessed in this limi jose c TTE. No evidence of RV or RA collapse. IVC/SVC/PA/PV/Pleural The inferior ve na cava is not well visualized due to f oreshortened images. A ri ght pleural effusion is noted. 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 Clinical History ARTHRITIS,A-FIB,CANCER,CAD,HTN,THYROID DISEASE,S/P PERICARDIAL WINDOW 08-21-2019 Height: 55 inches Weight: 45.36 kg (100 lbs) BSA: 1.31 m^2 BMI: 23.24 kg/m^2 HR: 75 bpm BP: 103/45 mmHg Summary Limited 2D exam and Doppler exam to address study indication. A dcxlgqku-zd-vakbz circumferential pericardial effusion is present. The effusion is 1.5cm anteriorly (RV free wall) and 2.8cm posteriorly (LA and basal LV). There is stranding within the effusion suggesting possible fibrinous component. Tamponade physiology was not assessed in this limited TTE. No evidence of RV or RA collapse. Signature Findings Rhythm/BP Regular sinus rhythm during the exam. Left Ventricle The global LV systolic function appears low-normal, qualitatively. Left Atrium LA size by qualitative assessment (unable to measure). LA size is enlarged . Right Ventricle Based on limited views, the right ventricular chamber size and systolic function are within normal limits. Right Atrium RA size is probably mildly dilated based on available views. Aortic Valve Mild AoV cusp thickening. Mild AoV cusp calcification. Mitral Valve Mild MV leaflet thickening. Mild mitral annular calcification. Tricuspid Valve TV structure is normal. Pulmonic Valve PV is not well visualized. Pericardium A jvsdmcqp-vt-ijbdy circumferential pericardial effusion is present. The effusion is 1.5cm anteriorly (RV free wall) and 2.8cm posteriorly (LA and basal LV). There is stranding within the effusion suggesting possible fibrinous component. Tamponade physiology was not assessed in this limited TTE. No evidence of RV or RA collapse. IVC/SVC/PA/PV/Pleural The inferior vena cava is not well visualized due to foreshortened images. A right pleural effusion is noted. Performing Organization Address [facility] one Number SLEH ECHO HEARTLAB MKCK[facility]ON CPACS * Strep pneumoniae antigen (08/22/2019 3:04 PM CDT) Strep Presumptive negative for Presumptive negative [facility] pneumoniae pneumococcal pneumonia - see for pneumococcal [facility] Antigen comment pneumonia - see [facility]ENTER comment, Presumptive negative for pneumococcal meningitis - see comment Specimen Urine - Urinary catheter, device (physical object) Narrative Performed At Presumptive negative for pneumococcal p neumonia, suggesting no current or recent [facility] pneumococcal infection. Infection due t o S. pneumoniae cannot be ruled out since [facility] the antigen present in the sample may b e below the detection limit of the test. Performing Organization Address [facility] one Number [address] [address] [facility] * Legionella antigen, urine (08/22/2019 3:04 PM CDT) Legionella Negative - see commentComment: [facility] Urine Antigen Negative for L. pneumophila [facility] serogroup 1 antigen, MEDICAL [facility]ENTER suggesting no recent or current infection with this serogroup. Legionellosis cannot be ruled out since other serogroups and species may cause disease. Specimen Urine - Urinary catheter, device (physical object) Performing Organization Address [facility] one Number [address] [address] [facility] * Cortisol (08/22/2019 10:12 AM CDT) Cortisol, Total 17.3 3.7 - 19.4 ug/dL [facility] Specimen Blood Narrative Performed At Reinstatement Clerk HUSSEIN - HUNTER Pal [facility] Performing Organization Address [facility] one Number [address] 0 [phone] [place] [address] * aPTT (08/22/2019 3:44 AM CDT) Only the most recent of 3 results within the time period is included. PTT 42.6 (H) 22.5 - 36.0 seconds [facility] Specimen Blood Performing Organization Address [facility] one Number [address] [address] [facility] * Prothromin time/INR (08/22/2019 3:44 AM CDT) Only the most recent of 3 results within the time period is included. Protime 19.3 (H) 11.9 - 14.2 seconds [facility] INR 1.7 <=5.9 [facility] Specimen Blood Narrative Performed At Effective 11/08/2018: PT Reference Range Change [facility] New: 11.9-14.2 Previous: 11.7-14.7 [facility] TER RECOMMENDED COUMADIN/WARFARIN INR THERA PY RANGES STANDARD DOSE: 2.0-3.0 Includes: PROP HYLAXIS for venous thrombosis, systemic embolization; TREATMENT for venous thro mbosis and/or pulmonary embolus. HIGH RISK: Target INR is 2.5-3.5 for pa tients wiht mechanical heart valves. Performing Organization Address [facility] one Number [address] 0 [phone] [place] [address] * Fibrinogen (08/22/2019 3:44 AM CDT) Only the most recent of 3 results within the time period is included. Fibrinogen 644 (H) 225 - 434 mg/dl [facility] Specimen Blood Performing Organization Address [facility] one Number [facility] [address] [place] [address] [facility] * PT/aPTT (08/22/2019 12:27 AM CDT) Protime 18.8 (H) 11.9 - 14.2 seconds [facility] INR 1.6 <=5.9 [facility] PTT 39.3 (H) 22.5 - 36.0 seconds [facility] Specimen Blood Narrative Performed At Effective 11/08/2018: PT Reference Range Change [facility] New: 11.9-14.2 Previous: 11.7-14.7 [facility] TER RECOMMENDED COUMADIN/WARFARIN INR THERA PY RANGES STANDARD DOSE: 2.0-3.0 Includes: PROP HYLAXIS for venous thrombosis, systemic embolization; TREATMENT for venous thro mbosis and/or pulmonary embolus. HIGH RISK: Target INR is 2.5-3.5 for pa tients wiht mechanical heart valves. Performing Organization Address [facility] Ph one Number [place] [address] [facility] * Troponin I (08/21/2019 11:42 PM CDT) Troponin I 0.06 (H) 0.00 - 0.03 ng/mL [facility] Specimen Blood Narrative Performed At Troponin I (TnI) levels must be interpreted in the co ntext of the presenting [facility] symptoms and the clinical findings. Elevated TnI leve ls indicate myocardial [facility] damage, but are not specific for ischem ic heart disease. Elevated TnI levels are seen in patients with other cardiac con ditions (including myocarditis and congestive heart failure), and slight T nI elevations occur in patients with other conditions, including sepsis, jayne al failure, acidosis, acute neurological disease, and persistent tachyarrhythmia . Reinstatement Clerk ID - DB Performing Organization Address [facility] Ph one Number [place] [address] [facility] * Lactate dehydrogenase (LDH) (08/21/2019 11:42 PM CDT) LDH 265 (H) 125 - 220 U/L [facility] Specimen Blood Narrative Performed At Reinstatement Clerk ID - DB [facility] Performing Organization Address City/State/Zipcode Ph one Number [facility] [address], [place] [address] MEDICAL CENTER * ECHOCARDIOGRAM REPORT - SCAN (08/21/2019 9:14 PM CDT) Narrative Performed At This result has an attachment that is n ot available. * LAYNE (08/21/2019 8:17 PM CDT) Narrative Performed At Katerine Leroy MD 08/21/2019 8:21 PM LAYNE Date: 08/21/2019 8:18 PM Sex: Male Locat ion: OR Requesting Physician: Eduardo Shafer MD Examiner: Katerine Leroy MD Indication: pericardial effusion Intu bated Sedated Insertion: easy Probe Type: multiplane Pre Intervention Summary: Post Intervention Summary: A very foc ussed echo was done in view of emergent situation LV: Normokinetic, EF about 55 % RV: Normo kinetic MV: Mild MR AV: No or AI TV: Mildf TR Circumferential pericardial effusion wi th few fibrin strands seen. ABout 1.5 -2 cm effusion posteriorly seen and 1 cm anteriorly. Some RV collapse but very clear. Post drainage, Anterior effusion was dr ained but posteriorly still there. Slightly decreased effusion posteriorly but still there. Surgical team aware. Procedure Note Katerine Leroy MD - 08/21/2019 8:17 PM CDT LAYNE Date: 08/21/2019 8:18 PM Sex: Male Location: OR Requesting Physician: Eduardo Shafer MD Examiner: Katerine Leroy MD Indication: pericardial effusion Intubated Sedated Insertion: easy Probe Type: multiplane Pre Intervention Summary: Post Intervention Summary: A very focussed echo was done in view of emergent situation LV: Normokinetic, EF about 55 % RV: Normo kinetic MV: Mild MR AV: No or AI TV: Mildf TR Circumferential pericardial effusion with few fibrin strands seen. ABout 1.5 -2 cm effusion posteriorly seen and 1 cm anteriorly. Some RV collapse but very clear. Post drainage, Anterior effusion was drained but posteriorly still there. Slightly decreased effusion posteriorly but still there. Surgical team aware. * CYTOLOGY REQUEST (08/21/2019 8:15 PM CDT) Only the most recent of 2 results within the time period is included. Cytology See Separate Report [facility] Specimen Body Fluid - Pericardial sac structure (body structure) Performing Organization Address City/State/Zipcode Ph one Number [facility] [address] [place], [place] [address] MED[facility] CENTER * Cytology (08/21/2019 8:15 PM CDT) Only the most recent of 2 results within the time period is included. Case Report Medical Cytology Report [facility] Case: [id number] [facility] Authorizing Provider: Eduardo Shafer, Collected: 08/21/20192014 Ordering Location: [facility] CV Recovery Room 2 Received: 08/22/2019 0913 Pathologist: Bryon Brown MD Specimen: Pericardial DIAGNOSIS PERICARDIAL FLUID (CYTOSPINS [facility] Electronically AND CELL BLOCK): [facility] signed by Stephanie, - NEGATIVE FOR MALIGNANCY [facility] MD Bryon on (SEE COMMENT) 08/23/2019 at 3:01 Signing Pathologist PM Direct Phone Line: [phone] COMMENT Cytospins and cell block [facility] sections show scattered [facility] mesothelial cells with [facility] reactive changes. Immunostains performed on cell block sections show the mesothelial cells are positive for calretinin, CK7 and CAM5.2, while MOC31 is predominantly negative. The findings are supportive of the above diagnosis. CPT Code(s) 05685, 12620, 85229, 68848 x 3 [facility] CLINICAL DATA Pericardial effusion, history [facility] of prostate cancer [facility] SPECIMEN SOURCE PERICARDIAL FLUID [facility] GROSS 300 mls bloody fluid; [address] [facility] DESCRIPTION cytospins, cell block [facility] Collected: [id number] [facility] Received: [id number] STATEMENT OF Satisfactory [facility] SPECIAL STUDIES The interpretation of this [facility] case included the use of [facility] immunohistochemistry or [facility] special stains. Control Slides Examined: In-house known positive controls were evaluated along with the test tissue. These control slides run alongside of the patients sample show appropriate staining. Internal positive and negative controls when available are evaluated Immunohistochemistry technical testing was performed at [facility], Pathology Laboratory where it was developed and its performance characteristics were determined. It has not been cleared or approved by the U.S. Food and Drug Administration. The FDA has determined that such clearance or approval is not necessary. The test is used for clinical purposes. It should not be regarded as investigational or for research. This laboratory is certified under the Clinical Laboratory Improvement Amendments of 1988 (CLIA-88) as qualified to perform high complexity clinical laboratory testing. Gross [facility] ' assessment was [facility] BCM performed at [facility], [address] [place] [address], Technical [facility] component was [facility] BCM performed at [facility], [address] [place] [address], Professional [facility] component was [facility] BCM performed at Pathology, [address] [place] [address], Specimen Body Fluid - Pericardial sac structure (body structure) Narrative Performed At This result has an attachment that is n ot available. Performing Organization Address [facility] Ph one Number [address] [address] [facility] * AFB culture + smear (non-sputum) (08/21/2019 8:09 PM CDT) Only the most recent of 3 results within the time period is included. Result No acid-fast bacilli isolated [facility] in 42 days [facility] AFB Smear No acid fast bacilli seen [facility] Specimen Body Fluid - Pleural cavity structure (body structure) Performing Organization Address [facility] Ph one Number [address] [address] [facility] * Anaerobic culture (08/21/2019 8:09 PM CDT) Only the most recent of 3 results within the time period is included. Result No anaerobes isolated [facility] Specimen Body Fluid - Pleural cavity structure (body structure) Performing Organization Address [facility] one Number [address] [facility] * Body fluid culture + gram stain (08/21/2019 8:09 PM CDT) Only the most recent of 2 results within the time period is included. Result No growth [facility] Gram Stain 2+ White blood cells seen [facility] Gram Stain No organisms seen [facility] Specimen Body Fluid - Pleural cavity structure (body structure) Performing Organization Address [facility] one Number [address] [facility] * Fungus culture + smear (08/21/2019 8:09 PM CDT) Only the most recent of 3 results within the time period is included. Result No fungus isolated in 28 days [facility] Fungus Smear No fungi seen [facility] Specimen Body Fluid - Pleural cavity structure (body structure) Performing Organization Address [facility] one Number [address] [facility] [place] * Surgically obtained culture + gram stain (08/21/2019 7:56 PM CDT) Result No growth [facility] Gram Stain <1+ White blood cells seen [facility] Gram Stain No organisms seen [facility] Specimen Tissue - Pericardial structure (body structure) Performing Organization Address [facility] one Number [address] [facility] [place] * Tissue Exam (08/21/2019 7:56 PM CDT) Case Report Surgical Pathology Report [facility] Kim [facility] Case: [id number] MEDICAL CENTER Authorizing Provider: Eduardo Shafer, Collected: 08/21/2019 Vladimir Ordering Location: [facility] CV Recovery Room 2 Received: 08/22/2019 0856 Pathologist: Miguel Angel Calix MD Specimen: Pericardium DIAGNOSIS PERICARDIUM, EXCISION [facility] nically - ACUTE AND CHRONIC [facility] signed by Fifi [facility] MD Miguel Angel on FIBRINOUS MATERIAL AND 08/27/2019 at 6:51 REACTIVE CHANGES PM Signing Pathologist Direct Phone Line: [phone] CPT Code(s) 59006 [facility] CLINICAL Pericardial effusion [facility] SPECIMEN SOURCE Pericardium [facility] GROSS Received fresh labeled with [facility] KAMRONMartin DESCRIPTION the patient's name, [facility] number and "pericardium" are [facility]ICAL [facility]ENTER two irregular pieces of red-pink soft tissue aggregating 2 x 1.5 x 0.2 cm. The larger tissue is quadrisected, and no gross lesions are identified. The specimen is entirely submitted in A1. CG/ew MICROSCOPIC Performed. [facility] Gross [facility] 'Martin assessment was [facility] BC performed at Pathology, [address] [place] [address], Technical [facility] ' component was [facility] BCM performed at Pathology, [address] [place] [address], Professional [facility] ' component was [facility] BC performed at Pathology, [address] [place] [address], Specimen Tissue - Pericardial structure (body structure) Performing Organization Address City/State/Zipcode Ph one Number [address] [facility] * ABORH, manual (08/21/2019 5:31 PM CDT) ABO Grouping B [facility] Rh Factor POS [facility] Specimen Blood Performing Organization Address City/State/Zipcode Ph one Number [address] [address] [facility] * 2D Echo W/Doppler(CW/PW/Color) (08/21/2019 5:30 PM CDT) Ejection SLE ECHO Fraction [facility] Specimen Narrative Performed At Transthoracic Echocardiography Report (TTE) SLE ECH O HEARTLAB Demographics [facility] Patient Name GRETTA ACUÑA Date of Study 08/21/2019 Gender Male Visit Number [id number] Race Unknown Room Number 2C36 Number Date of 1935 Referr ing Physician Age 83 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 Height: 55 inches Weight: 45.36 kg (100 lbs) BSA: 1.31 m^2 BMI: 23.24 kg/m^2 HR: 103 bpm BP: 100/100 mmHg Summary Moderately large circumferential perica rdial effusion most prominent around the basal RV free wall (1.7 cm) and the basal lateral LV (2 cm). The study is somewhat technically diffi cult but suggestion of intermittent partial RV collapse during normal breat satish is worrisome for possible tamponade. Doppler signs are indetermin ate. The estimated RA pressure by IVC dynami cs 11-15mmHg . Unable to estimate peak systolic PA pre ssure; inadequate TR velocity signal. Technically fair exam. Clinical correlation is indicated. Signature Findings Rhythm/BP Rapid rhy thm during the exam. Left Ventricle Grossly norm al LV size and Left Atrium LA is not well visualized, unable to estimate LA size . Right Ventricle RV chamber s ize is normal . possible mild free wall alba apse with respiration suspected. Right Atrium RA size is probably normal based on available view s. Aortic Valve Mild AoV cu sp thickening. AoV cusp mobility is mildly decreased . Mitral Valve Mild mitral annular calcification. No e vidence of mitral regurgitation by limited view s. Tricuspid Valve Unable to es timate peak systolic PA pressure; inad equate TR velocity signal. Aorta Aortic root size (SInus of Valsalva diameter) is mild ly dilated . Pericardium Moderately large circumferential pericardial effu isaac most prominent around the basal RV free wall (1.7 cm) and the basal lateral LV (2 cm). The study is somewhat technically difficult but sugg estion of intermittent partial RV collapse duri ng normal breathing is worrisome for possible tamp onade. Doppler signs are indeterminate. IVC/SVC/PA/PV/Pleural The estimated R A pressure by IVC dynamics 11-15mmHg . 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 Height: 55 inches Weight: 45.36 kg (100 lbs) BSA: 1.31 m^2 BMI: 23.24 kg/m^2 HR: 103 bpm BP: 100/100 mmHg Summary Moderately large circumferential pericardial effusion most prominent around the basal RV free wall (1.7 cm) and the basal lateral LV (2 cm). The study is somewhat technically difficult but suggestion of intermittent partial RV collapse during normal breathing is worrisome for possible tamponade. Doppler signs are indeterminate. The estimated RA pressure by IVC dynamics 11-15mmHg . Unable to estimate peak systolic PA pressure; inadequate TR velocity signal. Technically fair exam. Clinical correlation is indicated. Signature Findings Rhythm/BP Rapid rhythm during the exam. Left Ventricle Grossly normal LV size and Left Atrium LA is not well visualized, unable to estimate LA size. Right Ventricle RV chamber size is normal . possible mild free wall collapse with respiration suspected. Right Atrium RA size is probably normal based on available views. Aortic Valve Mild AoV cusp thickening. AoV cusp mobility is mildly decreased . Mitral Valve Mild mitral annular calcification. No evidence of mitral regurgitation by limited views. Tricuspid Valve Unable to estimate peak systolic PA pressure; inadequate TR velocity signal. Aorta Aortic root size (SInus of Valsalva diameter) is mildly dilated . Pericardium Moderately large circumferential pericardial effusion most prominent around the basal RV free wall (1.7 cm) and the basal lateral LV (2 cm). The study is somewhat technically difficult but suggestion of intermittent partial RV collapse during normal breathing is worrisome for possible tamponade. Doppler signs are indeterminate. IVC/SVC/PA/PV/Pleural The estimated RA pressure by IVC dynamics 11-15mmHg . Chambers/Structures Left Ventricle LVIDd: 4.98 cm LV Septum Diastolic: 1.11 cm LV PW Diastolic: 1.15 cm Aorta Ao Root S of Shawna.: 4.05 cm Performing Organization Address City/State/Zipcode Ph one Number [facility] * Vancomycin level, random (08/21/2019 5:30 PM CDT) Vancomycin Rm 1.8 ug/mL [facility] Specimen Blood Narrative Performed At Reference Range: No Normals [facility] Reinstatement Clerk ID - BS [facility] Performing Organization Address City/State/Zipcode Ph one Number [place] [address] [facility]ENTER * Respiratory Panel [facility] (08/21/2019 5:27 PM CDT) Human Not detected Not detected, [facility] Metapneumovirus Pending sale to [facility] Rhinovirus Not detected Not detected, [facility] Pending sale to [facility] Influenza A Not detected Not detected, [facility] Pending sale to [facility] INFLUENZA A (NO [facility] SUBTYPE) [facility] Influenza A [facility] subtype H1 [facility] Influenza A [facility] Subtype H3 [facility] Influenza A [facility] Subtype H1-2009 [facility] Influenza B Not detected Not detected, [facility] Pending sale to [facility] Respiratory Not detected Not detected, [facility] Syncytial Virus Equivocal [facility] Parainfluenza Not detected Not detected, [facility] Virus 1 [facility] Parainfluenza Not detected Not detected, [facility] Virus 2 [facility]ocal [facility] Parainfluenza Not detected Not detected, [facility] virus 3 [facility] Parainfluenza Not detected Not detected, [facility] Virus 4 Pending sale to [facility] Adenovirus Not detected Not detected, [facility] Equivocal [facility] Coronavirus Not detected Not detected, [facility] 229E [facility] Coronavirus Not detected Not detected, [facility] HKU1 [facility] Coronavirus Not detected Not detected, [facility] NL63 [facility] Coronavirus Not detected Not detected, [facility] OC43 [facility] Bordetella Not detected Not detected, [facility] Pertussis [facility] Chlamydophila Not detected Not detected, [facility] Pneumoniae [facility] Mycoplasma Not detected Not detected, [facility] Pneumoniae [facility] Specimen Nasopharyngeal - Nasopharyngeal wall structure (body structure) Narrative Performed At Other viruses and bacteria not targeted by this PCR p kyle cannot be excluded; [facility] therefore clinical correlation and follow up of serol ogy, culture results, and [facility] other molecular studies is required. Th e results are not intended to be used as the sole means for clinical diagnosis o r patient management decisions. This sample was tested at the [facility] r Diagnostics Laboratory using the Lumiy FilmArray Respiratory Panel. It is FDA cleared and has been verified and approved by the [facility] Molecular Diagnos tics Laboratory for clinical use on nasopharyngeal swab specimens. The performance of the FilmArray RP has not been established in individuals who received influenza vaccine. Recent ad ministration of a nasal influenza vaccine may cause false positive results for In fluenza A and/or Influenza B. Performing Organization Address [facility] Ph one Number [place] [address] [phone] [place] [address] * B-type Natriuretic Factor (BNP) (08/21/2019 5:27 PM CDT) BNP 384 (H) 0 - 100 pg/mL [facility] Specimen Blood Narrative Performed At Reinstatement Clerk ID - BS [facility] Performing Organization Address [facility] Ph one Number [place] [address] [facility] * Type and screen, automated (08/21/2019 4:40 PM CDT) ABO/RH B POSITIVE [facility] Ab Scrn NEGATIVE [facility] Specimen Blood Performing Organization Address City/[facility] Ph [facility] Number [facility] [address] [place] [address] [facility] * Platelet count (08/21/2019 4:40 PM CDT) Platelets 198 150 - 450 K/CU MM [facility] Specimen Blood Narrative Performed At Reinstatement Clerk ID - [id number] [facility] Performing Organization Address City/State/Zipcode Ph one Number [facility] [address] [place], [place] [address] [facility] after 04/18/2019 Insurance Type Payer Benefit Subscriber ID Effective Phone Address Plan / Dates Group Maps Contracted [employer] [id number] 2019-P HMO [place] resent [phone] Advance Directives For more information, please contact: [phone] Date Inactivated Comments Code Status Date Activated 09/14/2019 12:14 PM Partial Code 09/07/2019 11:59 AM This code status was determined by: Patient Drug Protocol After Arrest Occurs? Yes Mechanical Ventilation with Intubation? Yes Bag/Mask? Yes Internal/External Pacemaker? No Transfer to Critical Care? Yes Chest Compressions? No Defibrillation/Cardioversion? No 09/07/2019 11:35 AM Partial Code 08/29/2019 2:10 AM This code status was determined by: Patient Drug Protocol After Arrest Occurs? Yes Mechanical Ventilation with Intubation? Yes Bag/Mask? Yes Internal/External Pacemaker? No Transfer to Critical Care? Yes Chest Compressions? No Defibrillation/Cardioversion? No 08/29/2019 2:10 AM Conversation between patient and provider (Dr. Elton Kelley). Patient has capacity & is clear in his wishes to be DNR/DNI in the event he goes into cardiac arrest or impending respiratory failure. DNAR 08/28/2019 2:50 PM This code status was determined by: Patient Has the consent form been signed? No Have you Written ACP Note: No
--- OUTSIDE RECORDS SUMMARY | 2020-04-18 21:30 | XMS REPORT | Continuity of Care Document ---
Author Author [facility] Address Unknown Phone Unavailable Care Team Providers Care Didactic Instructor Name Role Phone [employer] Unavailable Un available Problems Problem Status Onset Date Classification Date Reported Comments Source Hypertension Active 10/08/2013 [facility] Hyperlipidemia Active 10/08/2013 [facility] Atrial Fibrillation Active 10/08/2013 [facility] Rotator Cuff Tendonitis Active 08/30/2013 [facility] Vaccines Prophylactic Need Act kimmy 08/30/2013 [facility] Hypothyroidism Active 10/08/2013 [facility] Generalized Osteoarthritis Act kimmy 10/08/2013 [facility] Lumbar Radiculopathy Active 10/08/2013 [facility] Osteoarthritis Of Knee Active 10/08/2013 [facility] Peripheral Neuropathy Active 10/08/2013 [facility] Medications Medication Details Route Status Patient Instructions Ordering Provider Order Date Source DULoxetine HCl 60 MG Oral Capsule Delaye d Release Particles ; Start Date: 09/28/2013; End Date: 06/1899 (Active) Active 09/28/2013 [facility] Levothyroxine Sodium 100 MCG Oral Tablet ; Start Date: 03/27/2013; End Date: (Active) Active 03/27/2013 [facility] Vitamin B-12 ER 1000 MCG Oral Tablet Extended Release ; Start Date: 07/27/2012 (Active) Active 07/27/2012 [facility] Oxybutynin Chloride 5 MG Oral Tablet ; Start Date: 07/27/2012 (Active) Active 07/27/2012 [facility] Lisinopril 20 MG Oral Tablet ; Start Date: 07/14/2012; End Date: (Active) Active 07/14/2012 [facility] Amiodarone HCl 200 MG Oral Tablet ; Start Date: 07/14/2012; End Date: (Active) Active 07/14/2012 [facility] Lipitor 20 MG Oral Tablet ; St art Date: 07/14/2012 (Active) Active 07/14/2012 [facility] Doxazosin Mesylate 8 MG Oral Tablet ; Start Date: 07/14/2012 (Active) Active 07/14/2012 [facility] Iron Oral Tablet ; Start Date: 07/14/2012 (Active) Active 07/14/2012 [facility] SulfaSALAzine 500 MG Oral Tablet Delayed Release ; Start Date: 07/14/2012; End Date: (Active) Active 07/14/2012 [facility] Folic Acid 1 MG Oral Tablet ; Start Date: 07/14/2012 (Active) Active 07/14/2012 [facility] Levothyroxine Sodium 100 MCG Oral Tablet ; Start Date: 07/14/2012; End Date: (Active) Active 07/14/2012 [facility] Aspirin 81 MG Oral Tablet ; St art Date: 07/14/2012 (Active) Active 07/14/2012 [facility] Plavix 75 MG Oral Tablet ; Sta rt Date: 07/14/2012 (Active) Active 07/14/2012 [facility] Iron TABS ; Start Date: 2012 (Active) Active 07/14/2012 [facility] Atorvastatin Calcium 20 MG Oral Tablet ; Start Date: 07/14/2012; End Date: (Active) Active 07/14/2012 [facility] Lisinopril 40 MG Oral Tablet ; Start Date: 07/14/2012; End Date: (Active) Active 07/14/2012 [facility] Carvedilol 3.125 MG Oral Tablet ; Start Date: 07/06/2012 (Active) Active 07/06/2012 [facility] PredniSONE TABS (Active) Active [facility] Centrum Silver TABS (Active) Active [facility] Allergies, Adverse Reactions, Alerts Substance Category Reaction Severity Reaction type Status Date Reported Comments Source Ceftin TABS drug allergy drug allergy Active [facility] Not Known [facility] Immunizations Immunization Date Given Site Status Last Updated Comments Source Fluzone Intramuscular Injectable 02/13/2013 completed [facility] Influenza completed [facility] Tdap completed [facility] Pneumo completed [facility] Results No Data Provided for This Section Pathology Reports No Data Provided for This Section Diagnostic Reports No Data Provided for This Section Consultation Notes No Data Provided for This Section Discharge Summaries No Data Provided for This Section History and Physicals No Data Provided for This Section Vital Signs No Data Provided for This Section Encounters Location Location Details Encounter Type Encounter Number Reason For Visit Attending Provider ADM Date DC Date Status Source AUDIT [id number] 07/06/2012 07/07/2012 [facility] [place], Provi guero: SE,NUCLEAR, Status: Pen, Time: 1:15 PM [id number] 07/13/19 13 07/07/2012 [facility] AUDIT [id number] 07/14/2012 07/15/2012 [facility], Provi guero: FADYAJITH LIRA, Status: Pen, Time: 9:00 AM [id number] 07/20/19 13 07/15/2012 [facility] EST, Provi guero: UMBERTO RINALDI, Status: Pen, Time: 10:00 AM [id number] 07/20/19 13 07/07/2012 [facility] [place], Provi guero: SE,NUCLEAR, Status: Pen, Time: 1:00 PM [id number] 07/20/19 13 07/15/2012 [facility] AUDIT [id number] 07/27/2012 07/28/2012 [facility] AUDIT [id number] 08/31/2012 09/01/2012 [facility] AUDIT [id number] 11/14/2012 11/14/2012 [facility] AUDIT [id number] 01/06/2013 01/06/2013 [facility] AUDIT [id number] 01/11/2013 01/11/2013 [facility] FUP, Provi guero: TAMAR MARIANO, Status: Pen, Time: 8:30 AM [id number] 01/20/20 13 01/11/2013 [facility] AUDIT [id number] 01/20/2013 01/20/2013 [facility] EST, Provi guero: UMBERTO RINALDI, Status: Pen, Time: 10:30 AM [id number] 01/26/20 13 11/14/2012 [facility] AUDIT [id number] 02/14/2013 02/14/2013 [facility] AUDIT [id number] 03/02/2013 03/02/2013 [facility] AUDIT [id number] 05/17/2013 05/17/2013 [facility] AUDIT [id number] 05/22/2013 05/22/2013 [facility] AUDIT [id number] 07/06/2013 07/06/2013 [facility] AUDIT [id number] 08/24/2013 08/24/2013 [facility] EST, Provi guero: UMBERTO RINALDI, Status: Pen, Time: 2:30 PM [id number] 08/31/19 14 08/24/2013 [facility] AUDIT [id number] 08/30/2013 08/30/2013 [facility] AUDIT [id number] 10/05/2013 10/05/2013 [facility] AUDIT [id number] 10/08/2013 10/08/2013 [facility] Bouchra VELEZ guero: UMBERTO RINALDI, Status: Pen, Time: 10:30 AM [id number] 02/28/2014 10/08/2013 [facility] Procedures No Data Provided for This Section Assessment and Plan No Data Provided for This Section Plan of Care Plan of Care Date Source [QLH] HEPATIC FUNCTION PANEL Routine[QLH ] LIPID PANEL Routine 10/08/2013 [facility] [QLH] HEPATIC FUNCTION PANEL Routine[QLH ] LIPID PANEL Routine 10/05/2013 [facility] [QLH] LIPID PANEL 08/20/2013 Routine[QLH ] HEPATIC FUNCTION PANEL 08/20/2013 Routine[QLH] HEPATIC FUNCTION PANEL Routine[QLH] LIPID PANEL Routine 08/30/2013 [facility] [QLH] LIPID PANEL 08/20/2013 Routine[QLH ] HEPATIC FUNCTION PANEL 08/20/2013 Routine 08/24/2013 [facility] [QLH] LIPID PANEL 08/20/2013 Routine[QLH ] HEPATIC FUNCTION PANEL 08/20/2013 Routine 07/06/2013 [facility] [QLH] LIPID PANEL 08/20/2013 Routine[QLH ] HEPATIC FUNCTION PANEL 08/20/2013 Routine 05/22/2013 [facility] [QLH] LIPID PANEL 08/20/2013 Routine[QLH ] HEPATIC FUNCTION PANEL 08/20/2013 Routine[QLH] TSH, 3RD GENERATION 05/17/2013 Routine[Q] LIPID PANEL WITH REFLEX TO DIRECT LDL 05/17/2013 Routine[QLH] CBC (INCLUDES DIFF/PLT) 05/17/2013 Routine[QLH] CMP W/EGFR 05/17/2013 Routine 05/17/2013 [facility] Orthopedics Referral 02/13/2013 Routine 03/02/2013 [facility] Orthopedics Referral 02/13/2013 Routine 02/14/2013 [facility] Social History Social History Date Source Former Smoker (V15.82); (Active) Marital History - Currently (Active) Never Used Drugs (Active) No History of Never Drank Alcohol (Denied) Stopped Drinking Alcohol (Active) 10/08/2013 [facility] Family History Value Date S ource Family history of Denial Of Any Signific ant Medical History (Active) 10/08/2013 [facility] Family history of Denial Of Any Signific ant Medical History (Active) 10/05/2013 [facility] Family history of Denial Of Any Signific ant Medical History (Active) 08/30/2013 [facility] Family history of Denial Of Any Signific ant Medical History (Active) 08/24/2013 [facility] Family history of Denial Of Any Signific ant Medical History (Active) 07/06/2013 [facility] Family history of Denial Of Any Signific ant Medical History (Active) 05/22/2013 [facility] Family history of Denial Of Any Signific ant Medical History (Active) 05/17/2013 [facility] Advance Directives Order Name Results Value Date Source Advance Directives Advance Dir ectives No Advance Directives available. 10/08/2013 [facility] Advance Directives Advance Dir ectives No Advance Directives available. 10/05/2013 [facility] Advance Directives Advance Dir ectives No Advance Directives available. 08/30/2013 [facility] Advance Directives Advance Dir ectives No Advance Directives available. 08/24/2013 [facility] Advance Directives Advance Dir ectives No Advance Directives available. 07/06/2013 [facility] Advance Directives Advance Dir ectives No Advance Directives available. 05/22/2013 [facility] Advance Directives Advance Dir ectives No Advance Directives available. 05/17/2013 [facility] Advance Directives Advance Dir ectives No Advance Directives available. 03/02/2013 [facility] Advance Directives Advance Dir ectives No Advance Directives available. 02/14/2013 [facility] Advance Directives Advance Dir ectives No Advance Directives available. 01/20/2013 [facility] Advance Directives Advance Dir ectives No Advance Directives available. 01/11/2013 [facility] Advance Directives Advance Dir ectives No Advance Directives available. 01/06/2013 [facility] Advance Directives Advance Dir ectives No Advance Directives available. 11/14/2012 [facility] Advance Directives Advance Dir ectives No Advance Directives available. 09/01/2012 [facility] Advance Directives Advance Dir ectives No Advance Directives available. 07/28/2012 [facility] Advance Directives Advance Dir ectives No Advance Directives available. 07/15/2012 [facility] Advance Directives Advance Dir ectives No Advance Directives available. 07/07/2012 [facility] Functional Status No Data Provided for This Section
--- OUTSIDE RECORDS SUMMARY | 2020-04-18 21:32 | XMS REPORT | Continuity of Care Document ---
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 325 MG Oral Tablet Delayed Release Aspirin EC 325 MG Oral Tablet Delayed Release 2017-05-25 00:00:00 Yes GAY KAY M.D. TAKE 1 TABLET BY MOUTH EVERY DAY [facility] Tamsulosin HCl - 0.4 MG Oral Capsule Tamsulosin HCl - 0.4 MG Oral Capsule 2013-10-17 00:00:00 Yes JACOB DOWELL M.D. TAKE ONE CAPSULE BY MOUTH EVERY DAY WITH DINNER. needs office visit [facility] Centrum Silver TABS 2013-10-08 14:37:32 Yes (Active) Refugio Swan DULoxetine HCl 60 MG Oral Capsule Delayed Release Particles 2013-09-28 05:00:00 Yes ; Start Date: 4; End Date: (Active) Refugio Swan Levothyroxine Sodium 100 MCG Oral Tablet 2013-03-27 05:00:00 Yes ; Start Date: 03/27/2013; End Date: (Active) Refugio Swan PredniSONE TABS 2013-03-02 22:46:27 Yes (Ac tive) Refugio Swan Vitamin B-12 ER 1000 MCG Oral Tablet Extended Release 2012-07-27 06:00:00 Yes ; Start Date: 07/27/2012 (Active) Refugio Swan Oxybutynin Chloride 5 MG Oral Tablet 2012-07-27 06:00:00 Ye s ; Start Date: 07/27/2012 (Active) Refugio villalobos Vitamin B-12 ER 1000 MCG Oral Tablet Extended Release Vitamin B-12 ER 1000 MCG Oral Tablet Extended Release 2012-07-27 00:00:00 Yes QD TAKE 1 TABLET DAILY DIRECTED. [facility] Lisinopril 20 MG Oral Tablet 2012-07-14 06:00:00 Yes ; Start Date: 07/14/2012; End Date: (Active) Refugio Swan Amiodarone HCl 200 MG Oral Tablet 2012-07-14 06:00:00 Yes ; Start Date: 07/14/2012; End Date: (Active) Refugio Swan Lipitor 20 MG Oral Tablet 2012-07-14 06:00:00 Yes ; Start Date: 07/14/2012 (Active) Refugio Swan Doxazosin Mesylate 8 MG Oral Tablet 2012-07-14 06:00:00 Yes ; Start Date: 07/14/2012 (Active) Refugio Ibarra nn Iron Oral Tablet 2012-07-14 06:00:00 Yes ; Start Date: 07/14/2012 (Active) Refugio Swan SulfaSALAzine 500 MG Oral Tablet Delayed Release 2012-07-14 06:00:00 Yes ; Start Date: 07/14/2012; End Date: (Active) Refugio Swan Folic Acid 1 MG Oral Tablet 2012-07-14 06:00:00 Yes ; Start Date: 07/14/2012 (Active) Refugio Swan Levothyroxine Sodium 100 MCG Oral Tablet 2012-07-14 06:00:00 Yes ; Start Date: 07/14/2012; End Date: (Active) Refugio Swan Aspirin 81 MG Oral Tablet 2012-07-14 06:00:00 Yes ; Start Date: 07/14/2012 (Active) Refugio Swan Plavix 75 MG Oral Tablet 2012-07-14 06:00:00 Yes ; Start Date: 07/14/2012 (Active) Refugio Swan Iron TABS 2012-07-14 06:00:00 Yes ; Start Date: 07/14/2012 (Active) Refugio Swan Atorvastatin Calcium 20 MG Oral Tablet 2012-07-14 06:00:00 Yes ; Start Date: 07/14/2012; End Date: (Active) Refugio Swan Lisinopril 40 MG Oral Tablet 2012-07-14 06:00:00 Yes ; Start Date: 07/14/2012; End Date: (Active) Refugio Swan Atorvastatin Calcium 20 MG Oral Tablet Atorvastatin Calcium 20 MG Oral Tablet 2012-07-14 00:00:00 Yes GAY KAY M.D. TAKE 1 TABLET BY MOUTH EVERYDAY AT BEDTIME [facility] Carvedilol 3.125 MG Oral Tablet 2012-07-06 06:00:00 Yes ; Start Date: 07/06/2012 (Active) [facility] Stacey nn Amiodarone Hcl 200 Mg Tablet Amiodarone Hcl 200 Mg Tablet Y es 200 Daily [facility] Aspirin (Aspirin Enteric Coated) 325 Mg Tabec Aspirin (Aspirin Enteric Coated) 325 Mg Tabec Yes 325 Daily [facility] Atorvastatin Calcium 20 Mg Tablet Atorvastatin Calcium 20 Mg Tablet Yes 20 Bedtime [facility] Carvedilol 3.125 Mg Tablet Carvedilol 3.125 Mg Tablet Yes 6.25 Twice A Day [facility] Cyanocobalamin (Vitamin B-12) (Vitamin B-12) 1,000 Mcg Tablet.er Cyanocobalamin (Vitamin B-12) (Vitamin B-12) 1,000 Mcg Tablet.er Yes 1000 Daily [facility] Famotidine 20 Mg Tab Famotidine 20 Mg Tab Yes 20 Twice A Day [facility] Ferrous Sulfate (Iron) 325 Mg Tablet Ferrous Sulfate (Iron) 325 Mg Tablet Yes 325 Daily [facility] Folic Acid/Cyanocob/Pyridoxine (Nephro-Raji Tablet) 1 Ea Tab Folic Acid/Cyanocob/Pyridoxine (Nephro-Raji Tablet) 1 Ea Tab Yes 1 Daily [facility] Levothyroxine Sodium 112 Mcg Tablet Levothyroxine Sodium 112 Mcg Tabl et Yes 175 Daily@0600 [facility] Lisinopril 2.5 Mg Tablet Lisinopril 2.5 Mg Tablet Yes 2.5 Daily [facility] Mirabegron (Myrbetriq) 50 Mg Tab.er.24h Mirabegron (Myrbetri q) 50 Mg Tab.er.24h Yes 50 Daily [facility] Mu-Vits-Min Th/Lycopene/Lutein (Centrum Silver Tablet) 1 Each Tablet Mu-Vits-Min Th/Lycopene/Lutein (Centrum Silver Tablet) 1 Each Tablet Yes Daily [facility] Nitroglycerin 0.4 Mg Tab.subl Nitroglycerin 0.4 Mg Tab.subl Yes .4 Every 5 Minutes as needed for Chest Pain [facility] Sulfasalazine 500 Mg Tab Sulfasalazine 500 Mg Tab Yes 500 Three Times A Day [facility] Tamsulosin Hcl (Flomax*) 0.4 Mg Cap Tamsulosin Hcl (Flomax*) 0.4 Mg C ap Yes .4 Twice A Day [facility] Vit A/Vit C/Vit E/Zinc/Copper (Preservision Areds Soft gel) 1 Each Capsule Vit A/Vit C/Vit E/Zinc/Copper (Preservision Areds Softgel) 1 Each Capsule Yes Twice A Day [facility] Testosterone Cypionate SOLN Testosterone Cypionate SOLN Yes 2000mg 1 injection every 10 days [facility] Centrum Silver TABS Centrum Silver TABS Yes 1 QD TAKE 1 TABLET DAILY. [facility] Amiodarone HCl - 100 MG Oral Tablet Amiodarone HCl - 100 MG Oral Tabl et Yes 1 QD TAKE 1 TABLET DAILY. [facility] Carvedilol 3.125 MG Oral Tablet Carvedilol 3.125 MG Oral Tablet Yes Q0.5D TAKE 1 TABLET TWICE DAILY WITH MEALS. [facility] Amiodarone Hcl (Pacerone) 400 Mg Tablet, 200 Mg Oral A miodarone Hcl (Pacerone) 400 Mg Tablet, 200 Mg Oral 2016-03-16 00:00:00 No 200 Daily [facility] Aspirin (Asa) 81 Mg Tab, 81 Mg Oral Aspirin (Asa) 81 Mg Tab, 81 Mg Oral 2016-03-16 00:00:00 No 81 Daily [facility] Atorvastatin Calcium (Lipitor) 20 Mg Tablet, 20 Mg Ora l Atorvastatin Calcium (Lipitor) 20 Mg Tablet, 20 Mg Oral 2016-03-16 00:00:00 No 20 Bedtime [facility] Carvedilol 3.125 Mg Tablet, 6.25 Mg Oral Carvedilol 3. 125 Mg Tablet, 6.25 Mg Oral 2016-03-16 00:00:00 No 6.25 Twice A Day [facility] Clopidogrel Bisulfate (Plavix) 75 Mg Tablet, 75 Mg Ora l Clopidogrel Bisulfate (Plavix) 75 Mg Tablet, 75 Mg Oral 2016-03-16 00:00:00 No 75 Daily [facility] Cyanocobalamin (Vitamin B-12) 1,000 Mcg Lozenge, 1000 Mcg Oral Cyanocobalamin (Vitamin B-12) 1,000 Mcg Lozenge, 1000 Mcg Oral 2016-03-16 00:00:00 N o 1000 Daily [facility] Famotidine 20 Mg Tab, 20 Mg Oral Famotidine 20 Mg Tab, 20 Mg Ora l 2016-03-16 00:00:00 No 20 Twice A Day [facility] Ferrous Sulfate 140 Mg Tablet.er, 65 Mg Oral Ferrous S ulfate 140 Mg Tablet.er, 65 Mg Oral 2016-03-16 00:00:00 No 65 Daily [facility] Folic Acid 1 Mg Tablet, 1 Mg Oral Folic Acid 1 Mg Tablet, 1 Mg O ral 2016-03-16 00:00:00 No 1 Daily [facility] Gabapentin 100 Mg Capsule, 100 Mg Oral Gabapentin 100 Mg Capsule , 100 Mg Oral 2016-03-16 00:00:00 No 100 Every 12 Hours [facility] Levothyroxine Sodium (Synthroid) 100 Mcg Tablet, 100 M cg Oral Levothyroxine Sodium (Synthroid) 100 Mcg Tablet, 100 Mcg Oral 2016-03-16 00:00:00 N o 100 Daily [facility] Lisinopril 20 Mg Tablet, 2.5 Mg Oral Lisinopril 20 Mg Tablet, 2. 5 Mg Oral 2016-03-16 00:00:00 No 2.5 Daily [facility] Multivitamin (Multi-Vitamin Daily) 1 Each Tablet, 1 Ta b Oral Multivitamin (Multi-Vitamin Daily) 1 Each Tablet, 1 Tab Oral 2016-03-16 00:00:00 No 1 [facility] Oxybutynin Chloride 5 Mg Tablet, 5 Mg Oral Oxybutynin Chloride 5 Mg Tablet, 5 Mg Oral 2016-03-16 00:00:00 No 5 Twice A Day [facility] Sulfasalazine (Sulfasalazine Dr) 500 Mg Tablet.dr, 500 Mg Oral Sulfasalazine (Sulfasalazine Dr) 500 Mg Tablet.dr, 500 Mg Oral 2016-03-16 00:00:00 No 500 Three Times A Day [facility] Tamsulosin Hcl (Flomax*) 0.4 Mg Cap, 0.4 Mg Oral Tamsu losin Hcl (Flomax*) 0.4 Mg Cap, 0.4 Mg Oral 2016-03-16 00:00:00 No .4 Twice A Day [facility] Doxazosin Mesylate (Cardura) 2 Mg Tablet, 5 Mg Oral Do xazosin Mesylate (Cardura) 2 Mg Tablet, 5 Mg Oral 2016-03-15 00:00:00 No 5 Twice A Day [facility] Doxazosin Mesylate (Cardura) 8 Mg Tablet, 8 Mg Oral Do xazosin Mesylate (Cardura) 8 Mg Tablet, 8 Mg Oral 2013-11-28 00:00:00 No 8 Bedtime [facility] Immunizations Ordered Immunization Name Filled Immunization Name Date Status Comments Source Pneumococcal polysaccharide vaccine, 23 valent 2020-03 14:10:00 Completed [facility] Fluzone High-Dose 0.5 ML Intramuscular Suspension Prefilled Syringe 2020-03-13 14:09:00 Completed [facility] Prevnar 13 Intramuscular Suspension 2019-04-23 16:00:00 Co mpleted [facility] Fluzone High-Dose 0.5 ML Intramuscular Suspension Prefilled Syringe 2019-04-23 15:57:00 Completed [facility] Fluzone High-Dose 0.5 ML Intramuscular Suspension Prefilled Syringe 2018-02-20 10:28:00 Completed [facility] Fluzone Quadrivalent 0.5 ML Intramuscular Suspension Prefill ed Syringe 2017-02-28 11:17:00 Completed [facility] Fluzone High-Dose SUSP 2016-03-26 14:39:00 Completed [facility] Prevnar 13 Intramuscular Suspension 2015-03-05 16:04:00 Co mpleted [facility] Fluzone Quadrivalent 0.5 ML Intramuscular Suspension 2015-03-05 16:03:00 Completed [facility] Fluarix Quadrivalent 0.5 ML SUSP 2014-03-05 12:17:00 Compl eted [facility] Fluzone INJ 2013-02-13 10:53:00 [facility] 2010-03-25 [facility]:00[facility]00 [facility] H[facility] Inj 2009-04-18 00:00:00 Completed [facility] Influenza 2008-04-09 00:00:00 Completed [facility] Tdap 2008-01-24 00:00:00 Completed [facility] Vital Signs Vital Name Observation Time Observation Value Comments Source Systolic blood pressure 2020-03-13 09:49:00 143 mm[Hg] [facility] Diastolic blood pressure 2020-03-13 09:49:00 76 mm[Hg] [facility] Body temperature 2020-03-13 09:49:00 98 [degF] Method: Temporal [facility] Heart Rate 2020-03-13 09:49:00 73 /min [facility] Body height 2020-03-13 09:49:00 72 [in_us] [facility] Respiratory rate 2020-03-13 09:49:00 16 /min [facility] Systolic blood pressure 2020-02-11 10:26:00 109 mm[Hg] Loca tion: LUE; Position: Sitting [facility] Diastolic blood pressure 2020-02-11 10:26:00 58 mm[Hg] Loc ation: LUE; Position: Sitting [facility] Body height 2020-02-11 10:26:00 72 [in_us] [facility] Weight 2020-02-11 10:26:00 191 [lb_av] [facility] Body mass index (BMI) [Ratio] 2020-02-11 10:26:00 25.9 kg/m2 [facility] Heart Rate 2020-02-11 10:26:00 71 /min [facility] Body temperature 2020-02-11 10:26:00 97.1 [degF] [facility] Systolic blood pressure 2020-02-04 10:11:00 156 mm[Hg] Loca tion: LUE; Position: Sitting [facility] Diastolic blood pressure 2020-02-04 10:11:00 74 mm[Hg] Loc ation: LUE; Position: Sitting [facility] Body height 2020-02-04 10:11:00 72 [in_us] [facility] Weight 2020-02-04 10:11:00 191.5 [lb_av] [facility] Body mass index (BMI) [Ratio] 2020-02-04 10:11:00 25.97 kg/m2 [facility] Body temperature 2020-02-04 10:11:00 97.9 [degF] Method: Temporal [facility] Heart Rate 2020-02-04 10:11:00 48 /min [facility] Respiratory rate 2020-02-04 10:11:00 16 /min [facility] Systolic blood pressure 2020-01-19 10:42:00 86 mm[Hg] Loca tion: RUE; Position: Sitting [facility] Diastolic blood pressure 2020-01-19 10:42:00 20 mm[Hg] Loc ation: RUE; Position: Sitting [facility] O2 SAT 2020-01-19 10:42:00 97 % Source: RA [facility] Respiratory rate 2020-01-19 10:42:00 24 /min [facility] 2020-01-19 10:42:00 100 [degF] Method: Temporal [facility] Heart Rate 2020-01-19 10:42:00 120 /min [facility] height 2020-01-15 10:50:00 73 [in_us] [facility] Weight 2020-01-15 10:50:00 220 [lb_av] [facility] Body mass index (BMI) [Ratio] 2020-01-15 10:50:00 29.03 kg/m2 [facility] Systolic blood pressure 2019-11-02 08:07:00 153 mm[Hg] Loca tion: LUE; Position: Sitting [facility] Diastolic blood pressure 2019-11-02 08:07:00 72 mm[Hg] Loc ation: LUE; Position: Sitting [facility] Body height 2019-11-02 08:07:00 70 [in_us] [facility] Weight 2019-11-02 08:07:00 165 [lb_av] [facility] Body mass index (BMI) [Ratio] 2019-11-02 08:07:00 23.68 kg/m2 [facility] Body temperature 2019-11-02 08:07:00 98.1 [degF] Method: Temporal [facility] Respiratory rate 2019-11-02 08:07:00 16 /min [facility] Heart Rate 2019-11-02 08:07:00 57 /min [facility] Systolic blood pressure 2019-10-30 09:31:00 103 mm[Hg] Loca tion: LUE; Position: Sitting [facility] Diastolic blood pressure 2019-10-30 09:31:00 61 mm[Hg] Loc ation: LUE; Position: Sitting [facility] Body height 2019-10-30 09:31:00 70 [in_us] [facility] Body temperature 2019-10-30 09:31:00 98.6 [degF] Method: Temporal [facility] Heart Rate 2019-10-30 09:31:00 76 /min [facility] Respiratory rate 2019-10-30 09:31:00 16 /min [facility] Systolic blood pressure 2019-09-25 09:34:00 98 mm[Hg] Loca tion: LUE; Position: Sitting [facility] Diastolic blood pressure 2019-09-25 09:34:00 60 mm[Hg] Loc ation: LUE; Position: Sitting [facility] Body height 2019-09-25 09:34:00 70 [in_us] [facility] Weight 2019-09-25 09:34:00 165 [lb_av] [facility] Body mass index (BMI) [Ratio] 2019-09-25 09:34:00 23.68 kg/m2 [facility] Body temperature 2019-09-25 09:34:00 96.8 [degF] Method: [facility] Heart Rate 2019-09-25 09:34:00 75 /min [facility] Respiratory rate 2019-09-25 09:34:00 16 /min [facility] Systolic blood pressure 2019-09-14 08:46:00 106 mm[Hg] [facility] Diastolic blood pressure 2019-09-14 08:46:00 57 mm[Hg] [facility] Heart rate 2019-09-14 08:46:00 79 /min [facility] Body temperature 2019-09-14 08:46:00 36.28 Adelina [facility] Respiratory rate 2019-09-14 08:46:00 18 /min [facility] Oxygen saturation in Arterial blood by Pulse oximetry 09-13 08:46:00 96 /min [facility] Body weight 2019-09-09 16:00:00 78.291 kg [facility] BMI 2019-09-09 16:00:00 22.39 kg/m2 [facility] Body height 2019-09-07 11:49:00 187 cm [facility] BP Systolic 2019-06-21 09:59:00 123 mm[Hg] Location: [facility]; Positi on: Sitting [facility] BP Diastolic 2019-06-21 09:59:00 63 mm[Hg] Location: [facility]; Positi on: Sitting [facility] Height 2019-06-21 09:59:00 70 [in_us] [facility] Temperature 2019-06-21 09:59:00 97.6 [degF] Method: [facility]poral [facility] Heart Rate 2019-06-21 09:59:00 46 /min [facility] Respiration Rate 2019-06-21 09:59:00 16 /min [facility] O2 SAT 2019-05-12 09:44:00 99 % Source: RA [facility] BP Systolic 2019-05-12 09:28:00 136 mm[Hg] Location: [facility] Positi on: Sitting [facility] BP Diastolic 2019-05-12 09:28:00 78 mm[Hg] Location: [facility] [place] on: Sitting [facility] Height 2019-05-12 09:28:00 70 [in_us] [facility] Weight 2019-05-12 09:28:00 192 [lb_av] [facility] Body Mass Index Calculated 2019-05-12 09:28:00 27.55 kg/m2 [facility] Temperature 2019-05-12 09:28:00 98.2 [degF] Method: Temporal [facility] Heart Rate 2019-05-12 09:28:00 95 /min [facility] Respiration Rate 2019-05-12 09:28:00 16 /min [facility] BP Systolic 2019-04-25 10:01:00 121 mm[Hg] Location: [place]; [place] on: Sitting [facility] BP Diastolic 2019-04-25 10:01:00 71 mm[Hg] Location: LUE; [place] on: Sitting [facility] Height 2019-04-25 10:01:00 70 [in_us] [facility] Weight 2019-04-25 10:01:00 179 [lb_av] [facility] Body Mass Index Calculated 2019-04-25 10:01:00 25.68 kg/m2 [facility] Heart Rate 2019-04-25 10:01:00 69 /min [facility] Respiration Rate 2019-04-25 10:01:00 16 /min [facility] BP Systolic 2019-04-23 13:30:00 101 mm[Hg] Location: [place]; Positi on: Sitting [facility] BP Diastolic 2019-04-23 13:30:00 53 mm[Hg] Location: [place]; [place] on: Sitting [facility] Height 2019-04-23 13:30:00 70 [in_us] [facility] Weight 2019-04-23 13:30:00 179.1 [lb_av] [facility] Body Mass Index Calculated 2019-04-23 13:30:00 25.7 kg/m2 [facility] Temperature 2019-04-23 13:30:00 97.3 [degF] Method: Temporal [facility] Heart Rate 2019-04-23 13:30:00 74 /min [facility] Procedures Procedure Date / Time Performed Performing Clinician Sour e [QL] CULTURE, URINE, ROUTINE 2020-03-13 00:00:00 [facility] [QL] URINALYSIS, COMPLETE W/REFLEX TO CULTURE 2020-03-12 00:00:0 0 [facility] [U] XRAY FEMUR 2 VWS RIGHT [id number] 2020-03-04 00:00:00 [facility] [N] 2D Echo complete, with Doppler [id number] 2020-02-11 00:00:00 [facility] [QL] THYROID PANEL 2020-02-04 00:00:00 [facility] [QL] CMP W/EGFR 2020-01-14 00:00:00 [place] [facility] [QL] MAGNESIUM 2020-01-14 00:00:00 [facility] [QL] PHOSPHATE ( PHOSPHORUS) 2020-01-14 00:00:00 [facility] [QL] PTH, INTACT (WITHOUT CALCIUM) 2020-01-14 00:00:00 [facility] [QL] VITAMIN D, 25-HYDROXY, LC/MS/MS 2020-01-14 00:00:00 [facility] MA Bone Density Scan [id number] 2020-01-14 [facility]:00[facility] XRAY FEMUR 2 VWS RIGHT [id number] 2019-12-31 00:00:00 [facility] Post Op Promis 29 Survey 2019-12-25 00:00:00 [facility] [QL] TSH, 3RD GENERATION W/REFLEX TO FT4 2019-11-09 00:00:00 [facility] EKG (In Office) 2019-11-02 00:00:00 [place] [facility] [QL] PROTHROMBIN W/INR + PARTIAL THROMBOPLASTIN TIMES 2019-11-02 00:00:00 [facility] [facility] [U] XRAY KNEE 1 OR 2 VWS RIGHT [id number] 2019-10-31 00:00:00 [facility] [Q] LIPID PANEL WITH REFLEX TO DIRECT LDL 2019-10-30 00:00:00 [facility] [QL] CMP W/EGFR 2019-10-30 00:00:00 [place] [facility] [QL] CREATINE KINASE, TOTAL 2019-10-30 00:00:00 [facility] [QL] TSH, 3RD GENERATION W/REFLEX TO FT4 2019-10-30 00:00:00 [facility] [N] 2D Echo complete, with Doppler [id number] 2019-10-01 00:00:00 [facility] [N] Nuclear Test-Adenosine Stress Perfusion 2019-10-01 00:00:00 [facility] RHYTHM STRIP - SCAN 2019-09-12 11:52:11 Provider, Default Silvina [facility] REPORT OF PROCEDURE - ENDOSCOPY SCAN 2019-09-10 11:10:44 Pro vider, Default Scanning [facility] RHYTHM STRIP - SCAN 2019-09-10 11:10:41 Provider, Default Tejinderni bill [facility] BASIC METABOLIC PANEL (7) 2019-09-10 04:06:00 Jason Alas [facility] CBC (HEMOGRAM ONLY) 2019-09-10 04:06:00 Bishop Jason [facility] COMPREHENSIVE METABOLIC PANEL 2019-09-08 04:01:00 Bishop [facility] CBC W/PLT COUNT & AUTO DIFFERENTIAL 2019-09-08 04:00:00 Miguel Angel Alas bby [facility] ECG 12-LEAD 2019-09-07 13:47:40 Unknown, Hl7 [facility] ECG 12-LEAD 2019-09-07 13:46:49 Unknown, Hl7 [facility] TSH/FREE T4 IF INDICATED 2019-09-06 08:55:00 [facility] 1 VIEW PORTABLE/BEDSIDE 2019-09-06 04:26:00 Daphne Vitale [facility] BASIC METABOLIC PANEL (7) 2019-09-06 04:11:00 Warren [facility] MAGNESIUM 2019-09-06 04:11:00 [facility] PHOSPHORUS 2019-09-06 04:11:[address] [facility] VITAMIN D, 25-HYDROXY 2019-09-06 04:11:[address] [facility] CT ABDOMEN/PELVIS WITHOUT IV CONTRAST 2019-09-05 16:53:[address] [facility] URINALYSIS WITHOUT MICROSCOPIC 2019-09-05 10:49:00 Warren [facility] SODIUM, RANDOM URINE 2019-09-05 10:49:00 [facility] CREATININE, RANDOM URINE 2019-09-05 10:49:00 Warren [facility] UREA NITROGEN, RANDOM URINE 2019-09-05 10:49:[address] [facility] BLOOD GAS, VENOUS 2019-09-05 06:10:00 Marcio Mari [facility] BASIC METABOLIC PANEL (7) 2019-09-05 05:01:00 Iginiamre, [facility] 2019-09-05 05:01:00 Daphne Vitale [facility] XR CHEST 1 VIEW PORTABLE/BEDSIDE 2019-09-05 04:36:00 Daphne Vitale [facility] MAGNESIUM 2019-09-04 17:01:00 Belem Restrepo [facility] POTASSIUM 2019-09-04 17:01:00 Belem Restrepo [facility] CALCIUM, IONIZED 2019-09-04 17:01:00 Ukgerry Ncjori [facility] BASIC METABOLIC PANEL (7) 2019-09-04 04:13:00 [facility] W/[facility]T COUNT & AUTO DIFFERENTIAL 2019-09-04 04:13:00 Lisa Warren [facility] XR CHEST 1 VIEW PORTABLE/BEDSIDE 2019-09-04 01:44:00 Moisés Torres A [facility] ECG 12-LEAD 2019-09-03 06:10:58 Unknown, Hl7 [facility] CBC (HEMOGRAM ONLY) 2019-09-03 05:00:00 [facility] 2019-09-03 05:00:00 Uk, [facility] HEPATIC FUNCTION PANEL 2019-09-03 05:00:00 Abimael Hickey [facility] BASIC METABOLIC PANEL (7) 2019-09-03 05:00:00 Belem Restrepo [facility] BLOOD GAS, ARTERIAL 2019-09-03 05:00:00 Belem Restrepo [facility] MAGNESIUM 2019-09-03 05:00:00 Belem Restrepo [facility] XR CHEST 1 VIEW PORTABLE/BEDSIDE 2019-09-03 04:53:00 Moisés Torres A [facility] BLOOD GAS, ARTERIAL 2019-09-02 17:06:00 Amber Sargent [facility] BASIC METABOLIC PANEL (7) 2019-09-02 17:06:00 Corazon Torres CH, [facility] MAGNESIUM 2019-09-02 17:06:00 Corazon Torres [facility] PHOSPHORUS 2019-09-02 17:06:00 Corazon Torres [facility] XR CHEST 1 VIEW PORTABLE/BEDSIDE 2019-09-02 09:20:00 Moisés Torres [facility] BLOOD GAS, VENOUS 2019-09-02 03:42:00 Corazon Cates [facility] BASIC METABOLIC PANEL (7) 2019-09-02 03:42:00 [place], [facility] MAGNESIUM 2019-09-02 03:42:00 Uk, [facility] CALCIUM, IONIZED 2019-09-02 03:42:00 Uk, [facility] CBC (HEMOGRAM ONLY) 2019-09-02 03:42:00 [place], [facility] PHOSPHORUS 2019-09-02 03:42:00 [place], [facility] BLOOD GAS, VENOUS 2019-09-01 19:38:00 Cor[facility]on [facility] BLOOD GAS, VENOUS 2019-09-01 17:45:00 Corazon Cates [facility] MAGNESIUM 2019-09-01 16:46:00 Belem Restrepo [facility] POTASSIUM 2019-09-01 16:46:00 Belem Restrepo [facility] CALCIUM, IONIZED 2019-09-01 16:46:00 [place], [facility] CALCIUM, IONIZED 2019-09-01 11:32:00 [place], [facility] MAGNESIUM 2019-09-01 11:30:00 Belem Restrepo [facility] POTASSIUM 2019-09-01 11:30:00 Belem Restrepo [facility] BASIC METABOLIC PANEL (7) 2019-09-01 05:01:00 [place], [facility] MAGNESIUM 2019-09-01 05:01:00 [facility], [facility] CALCIUM, IONIZED 2019-09-01 05:01:00 [facility], [facility] CBC (HEMOGRAM ONLY) 2019-09-01 05:01:00 [facility], [facility] PHOSPHORUS 2019-09-01 05:01:00 Uk, [facility] XR CHEST 1 VIEW PORTABLE/BEDSIDE 2019-09-01 01:47:00 Igkylah [facility] BASIC METABOLIC PANEL (7) 2019-08-31 22:41:00 [facility], [facility] MAGNESIUM 2019-08-31 22:41:00 [facility], [facility] CALCIUM, IONIZED 2019-08-31 22:41:00 [facility], [facility] CT CHEST WITH IV CONTRAST 2019-08-31 16:29:00 Pierre Chavez [facility] CT ABDOMEN/PELVIS WITH IV CONTRAST 2019-08-31 16:29:00 Pierre Chavez [facility] MAGNESIUM 2019-08-31 13:02:00 Belem Restrepo [facility] POTASSIUM 2019-08-31 13:02:00 Belem Restrepo [facility] ECG 12-LEAD 2019-08-31 12:28:02 Unknown, Hl7 [facility] BASIC METABOLIC PANEL (7) 2019-08-31 04:43:00 Iginiamrlisa [facility] MAGNESIUM 2019-08-31 04:43:00 Iginiaroxanna [facility] PHOSPHORUS 2019-08-31 04:43:00 Iginiaroxanna [facility] CBC W/PLT COUNT & AUTO DIFFERENTIAL 2019-08-31 04:43:00 Iginiamr toledo [facility] XR CHEST 1 VIEW PORTABLE/BEDSIDE 2019-08-31 03:22:00 Daphne Vitale [facility] STOOL CULTURE + SHIGA TOXIN 2019-08-30 21:50:00 KimberlyJoeleribertolisa Jose [facility] SHIGA TOXIN SCREEN 2019-08-30 21:50:00 Cornelius Harris [facility] STOOL PATH CHARGE 2019-08-30 21:50:00 [facility] VANCOMYCIN LEVEL, TROUGH 2019-08-30 10:29:00 Abimael Hickey [facility] BASIC METABOLIC PANEL (7) 2019-08-30 04:14:00 Daphne Vitale [facility] MAGNESIUM 2019-08-30 04:14:00 Iam Daphne [facility] PHOSPHORUS 2019-08-30 04:14:00 Iginiaroxanna [facility] CBC W/PLT COUNT & AUTO DIFFERENTIAL 2019-08-30 04:14:00 Luis toledo [facility] (CELLAVISION MANUAL DIFF) 2019-08-30 04:14:00 Iam [facility] XR CHEST 1 VIEW PORTABLE/BEDSIDE 2019-08-30 00:52:00 Iam [facility] ECHOCARDIOGRAM REPORT - SCAN 2019-08-29 21:22:12 Asha Siu lt [facility] BLOOD CULTURE 2019-08-29 12:05:00 Amber Sargent [facility] LACTIC ACID, VENOUS 2019-08-29 12:05:00 Amber Sargent [facility] 2D ECHO W/ DOPPLER (CW/PW/COLOR) 2019-08-29 08:31:[address] [facility] PROCALCITONIN 2019-08-29 03:03:00 eBlem Restrepo [facility] XR CHEST 1 VIEW PORTABLE/BEDSIDE 2019-08-29 01:05:00 Eduardo Herrera [facility] BASIC METABOLIC PANEL (7) 2019-08-29 00:33:00 LuisDaphne toledo [facility] MAGNESIUM 2019-08-29 00:33:00 Daphne Vitale [facility] PHOSPHORUS 2019-08-29 00:33:00 DavidrocDaphne toledo [facility] CBC W/PLT COUNT & AUTO DIFFERENTIAL 2019-08-29 00:33:00 Luis toledo Daphne [facility] (CELLAVISION MANUAL DIFF) 2019-08-29 00:33:00 Luislisa Daphne [facility] POCT-BLOOD GASES, ARTERIAL 2019-08-29 00:17:00 Jamey Gong [facility] POCT-SODIUM 2019-08-29 00:17:00 Colin Gong [facility] POCT-POTASSIUM 2019-08-29 00:17:00 Colin Gong [facility] POCT-HEMOGLOBIN 2019-08-29 00:17:00 Colin Gong [facility] POCT-HEMATOCRIT 2019-08-29 00:17:00 Dudley Gongendra [facility] POCT-CALCIUM IONIZED 2019-08-29 00:17:00 Colin Gong C [facility] POCT-GLUCOSE 2019-08-29 00:17:00 Dudley Gongendra [facility] LACTIC ACID, VENOUS 2019-08-29 00:16:00 [facility] ECHOCARDIOGRAM REPORT - SCAN 2019-08-28 21:20:45 Asha Siu lt [facility] 2D ECHO W/ DOPPLER (CW/PW/COLOR) 2019-08-28 07:51:08 Khadijah Sargent ra [facility] XR CHEST 1 VIEW PORTABLE/BEDSIDE 2019-08-28 03:32:00 Harvey Restrepo [facility] MAGNESIUM 2019-08-28 02:36:00 Corazon Torres [facility] BASIC METABOLIC PANEL (7) 2019-08-28 02:36:00 [facility] W/[facility] & AUTO DIFFERENTIAL 2019-08-28 02:36:00 [facility] 1 VIEW PORTABLE/BEDSIDE 2019-08-27 13:33:00 Khadijah Sargent ra [facility] MAGNESIUM 2019-08-27 13:02:00 Alino, Gillian Maryan [facility] MAGNESIUM 2019-08-27 03:46:00 Corazon Torres [facility] BASIC METABOLIC PANEL (7) 2019-08-27 03:46:00 Maverick Singh [facility] CBC W/PLT COUNT & AUTO DIFFERENTIAL 2019-08-27 03:46:00 Haddad-Yamilet ez [facility] POTASSIUM 2019-08-26 17:51:00 Alino, Gillian Maryan [facility] MAGNESIUM 2019-08-26 17:51:00 Alino, Gillian Maryan [facility] CALCIUM, IONIZED 2019-08-26 17:49:00 [facility]ino[facility] BAS[facility] MET[facility]OLIC PANEL (7) 2019-08-26 05:22:00 Jay Escalona [facility] MAGNESIUM 2019-08-26 05:22:00 Corazon Torres [facility] PHOSPHORUS 2019-08-26 05:22:00 Alino, Gillian Maryan [facility] CBC W/PLT COUNT & AUTO DIFFERENTIAL 2019-08-26 05:22:00 Boo-Yamilet ez [facility] OXYGEN SATURATION, MEASURED 2019-08-25 17:46:00 Thomas Escalona [facility] BASIC METABOLIC PANEL (7) 2019-08-25 17:46:00 Jay Escalona [facility] MAGNESIUM 2019-08-25 17:46:00 NerisRuss Henson [facility] OXYGEN SATURATION, MEASURED 2019-08-25 09:28:00 Thomas Escalona [facility] MAGNESIUM 2019-08-25 05:15:00 Corazon Torres [facility] BASIC METABOLIC PANEL (7) 2019-08-25 05:15:00 Jay Escalona [facility] PHOSPHORUS 2019-08-25 05:15:00 [facility] W/PLT COUNT & AUTO DIFFERENTIAL 2019-08-25 05:15:00 Corazon Torres [facility] BASIC METABOLIC PANEL (7) 2019-08-24 23:30:00 Jay Escalona [facility] MAGNESIUM 2019-08-24 23:30:00 Alino, Gillian Maryan [facility] PHOSPHORUS 2019-08-24 23:30:00 Alino, Gillian Maryan [facility] CBC W/PLT COUNT & AUTO DIFFERENTIAL 2019-08-24 23:30:00 Corazon Torres [facility] OXYGEN SATURATION, MEASURED 2019-08-24 17:18:00 Thomas Escalona [facility] CBC W/PLT COUNT & AUTO DIFFERENTIAL 2019-08-24 17:18:00 Corazon Torres [facility] BASIC METABOLIC PANEL (7) 2019-08-24 17:17:00 Jay Escalona [facility] LACTIC ACID, ARTERIAL 2019-08-24 09:00:00 Corazon Torres [facility] BLOOD GAS, ARTERIAL 2019-08-24 09:00:00 Lizbet Escalona [facility] BASIC METABOLIC PANEL (7) 2019-08-24 09:00:00 Jay Escalona [facility] CBC W/PLT COUNT & AUTO DIFFERENTIAL 2019-08-24 09:00:00 Corazon Torres [facility] XR CHEST 1 VIEW PORTABLE/BEDSIDE 2019-08-24 02:15:00 Karsten Harris [facility] LACTIC ACID, ARTERIAL 2019-08-24 01:02:00 Corazon Torres [facility] BLOOD GAS, ARTERIAL 2019-08-24 01:02:00 Lizbet Escalona [facility] BASIC METABOLIC PANEL (7) 2019-08-24 01:02:00 Jay Escalona [facility] OXYGEN SATURATION, MEASURED 2019-08-24 01:02:00 Thomas Escalona [facility] MAGNESIUM 2019-08-24 01:02:00 Corazon Torres [facility] CBC W/PLT COUNT & AUTO DIFFERENTIAL 2019-08-24 01:02:00 Corazon Torres [facility] ECHOCARDIOGRAM REPORT - SCAN 2019-08-23 21:12:15 ProviderAsha lt Enzo [facility] OXYGEN SATURATION, MEASURED 2019-08-23 17:24:00 Corazon Torres [facility] BASIC METABOLIC PANEL (7) 2019-08-23 17:24:00 Corazon Torres [facility] CBC W/PLT COUNT & AUTO DIFFERENTIAL 2019-08-23 15:16:00 Corazon Torres [facility] BLOOD GAS, ARTERIAL 2019-08-23 15:15:00 Corazon Torres [facility] LACTIC ACID, ARTERIAL 2019-08-23 15:15:00 Corazon Torres [facility] CALCIUM, IONIZED 2019-08-23 12:09:00 KimberlyCornelius [facility] SODIUM NA-STAT LAB 2019-08-23 12:09:00 Kimberly, Tanfllisa [facility] POTASSIUM-STAT LAB 2019-08-23 12:09:00 KimberlyCornelius [facility] GLUCOSE-STAT LAB 2019-08-23 12:09:00 Kimberly, Taneribertoe [facility] HGB/HCT (H&H) - STAT LAB 2019-08-23 12:09:00 Bartolo Harrise Polyca rp [facility] BLOOD GAS, ARTERIAL 2019-08-23 12:09:00 Corazon Torres [facility] LACTIC ACID, ARTERIAL 2019-08-23 12:09:00 Corazon Torres [facility] BASIC METABOLIC PANEL (7) 2019-08-23 12:09:00 Corazon Torres [facility] OXYGEN SATURATION, MEASURED 2019-08-23 12:08:00 Corazon Torres [facility] OXYGEN SATURATION, MEASURED 2019-08-23 10:16:00 Corazon Torres [facility] ECG 12-LEAD 2019-08-23 09:29:15 Unknown, Hl7 Doctor [facility] CBC W/PLT COUNT & AUTO DIFFERENTIAL 2019-08-23 07:58:00 Corazon Torres [facility] LACTIC ACID, ARTERIAL 2019-08-23 03:54:00 Corazon Torres [facility] BLOOD GAS, ARTERIAL 2019-08-23 03:54:00 Kimberly, Tanwie Polycarp [facility] BASIC METABOLIC PANEL (7) 2019-08-23 03:54:00 Kimberly, Tanwie Polyc gunner [facility] MAGNESIUM 2019-08-23 03:54:00 Kimberly, Tanwie Polycarp [facility] PHOSPHORUS 2019-08-23 03:54:00 Kimberly, Tanwie Polycarp [facility] CALCIUM, IONIZED 2019-08-23 03:54:00 Kmiberly, Tanwie Polycarp [facility] CBC W/PLT COUNT & AUTO DIFFERENTIAL 2019-08-23 03:54:00 Corazon Torres [facility] XR CHEST 1 VIEW PORTABLE/BEDSIDE 2019-08-23 03:17:00 Kimberly, Tanwi e Polycarp [facility] LACTIC ACID, ARTERIAL 2019-08-22 20:12:00 Kimberly, Tanwie Polycarp [facility] CALCIUM, IONIZED 2019-08-22 20:08:00 Cornelius Harris [facility] BLOOD GAS, ARTERIAL 2019-08-22 20:08:00 Cornelius Harris [facility] SODIUM NA-STAT LAB 2019-08-22 20:08:00 Cornelius Harris [facility] POTASSIUM-STAT LAB 2019-08-22 20:08:00 Cornelius Harris [facility] GLUCOSE-STAT LAB 2019-08-22 20:08:00 Cornelius Harris [facility] HGB/HCT (H&H) - STAT LAB 2019-08-22 20:08:00 Cornelius Harris [facility] POCT-GLUCOSE METER 2019-08-22 20:03:00 Eduardo Shafer [facility] POCT-GLUCOSE METER 2019-08-22 18:19:00 Eduardo Shafer [facility] LACTIC ACID, ARTERIAL 2019-08-22 18:12:00 Corazon Torres [facility] BLOOD GAS, ARTERIAL 2019-08-22 18:12:00 LuisHeber [facility] TRANSFUSION SERVICE REPORT - SCAN 2019-08-22 17:54:35 Provid er, Default Scanning [facility] SPUTUM CULTURE + GRAM STAIN 2019-08-22 17:32:00 Guy Bennett [facility] LIMITED 2D ECHOCARDIOGRAM 2019-08-22 16:14:54 Jose L Justice galisa [facility] TRANSESOPHAGEAL ECHO 2019-08-22 16:02:04 Corazon Torres [facility] LEGIONELLA URINE ANTIGEN 2019-08-22 15:04:00 Guy Bennett [facility] CBC W/PLT COUNT & AUTO DIFFERENTIAL 2019-08-22 15:04:00 Corazon Torres [facility] POCT-GLUCOSE METER 2019-08-22 13:37:00 Eduardo Shafer [facility] LACTIC ACID, ARTERIAL 2019-08-22 13:34:00 MelissaCorazon [facility] CORTISOL 2019-08-22 10:12:00 Heber Smith [facility] XR CHEST 1 VIEW PORTABLE/BEDSIDE 2019-08-22 10:06:00 Leelee Alvarado [facility] ECG 12-LEAD 2019-08-22 06:01:50 Unknown, Hl7 Doctor [facility] BASIC METABOLIC PANEL (7) 2019-08-22 03:44:00 Kimberly, Tanwie Polyc gunner [facility] MAGNESIUM 2019-08-22 03:44:00 Kimberly, Tanwie Polycarp [facility] PHOSPHORUS 2019-08-22 03:44:00 Kimberly, Tanwie Polycarp [facility] CALCIUM, IONIZED 2019-08-22 03:44:00 Kimberly, Tanwie Polycarp [facility] BLOOD GAS, ARTERIAL 2019-08-22 03:44:00 Kimberly, Tanwie Polycarp [facility] PROTHROMBIN TIME/INR 2019-08-22 03:44:00 Kimberly, Tanwie Polycarp [facility] APTT 2019-08-22 03:44:00 Kimberly, Tanwie Polycarp [facility] FIBRINOGEN 2019-08-22 03:44:00 Kimberly, Tanwie Polycarp [facility] CBC W/PLT COUNT & AUTO DIFFERENTIAL 2019-08-22 03:44:00 KimberlyIsaac Polycarp [facility] XR CHEST 1 VIEW PORTABLE/BEDSIDE 2019-08-22 00:57:00 Kimberly, Tanwi e Polycarp [facility] CALCIUM, IONIZED 2019-08-22 00:28:00 Kimberly, Tanwie Polycarp [facility] PT/APTT 2019-08-22 00:27:00 Kimberly, Tanwie Polycarp [facility] LACTIC ACID, ARTERIAL 2019-08-22 00:27:00 Kimberly, Tanwie Polycarp [facility] BLOOD GAS, ARTERIAL 2019-08-22 00:27:00 Kimberly, Tanwie Polycarp [facility] SODIUM NA-STAT LAB 2019-08-22 00:27:00 Kimberly, Bartoloe Polycarp [facility] POTASSIUM-STAT LAB 2019-08-22 00:27:00 Kimberly, Cornelius Polycarp [facility] GLUCOSE-STAT LAB 2019-08-22 00:27:00 Kimberly, Cornelius Polycarp [facility] HGB/HCT (H&H) - STAT LAB 2019-08-22 00:27:00 KimberlyCornelius ovalle Ela [facility] CBC W/PLT COUNT & AUTO DIFFERENTIAL 2019-08-22 00:27:00 [facility]ac [facility] 2019-08-21 23:42:00 Kimberly, Joeljerri Polycarp [facility] LACTATE DEHYDROGENASE (LDH) 2019-08-21 23:42:00 [facility]elius Harris [facility] BASIC METABOLIC PANEL (7) 2019-08-21 23:42:00 KimberlyCornelius ovalle Polyc gunner [facility] XR CHEST 1 VIEW PORTABLE/BEDSIDE 2019-08-21 23:07:00 [facility] BLOOD GAS, ARTERIAL 2019-08-21 22:26:00 Kimberly Joeljerri Polycarp [facility] XR CHEST 1 VIEW PORTABLE/BEDSIDE 2019-08-21 21:17:00 Bartolo Harris e Polycarp [facility] ECHOCARDIOGRAM REPORT - SCAN 2019-08-21 21:14:46 Asha Siu lt Scanning [facility] PROTHROMBIN TIME/INR 2019-08-21 20:52:00 KimberlyCornelius ovalle Polycarp [facility] APTT 2019-08-21 20:52:00 Bartolo Harrise Polycarp [facility] FIBRINOGEN 2019-08-21 20:52:00 oJel Harriswie Polycarp [facility] BASIC METABOLIC PANEL (7) 2019-08-21 20:50:00 Kimberly, Taneribertoe Polyc gunner [facility] MAGNESIUM 2019-08-21 20:50:00 Kimberly, [facility] PHOSPHORUS 2019-08-21 20:50:00 Kimberly, [facility] LACTIC ACID, ARTERIAL 2019-08-21 20:50:00 Kimberly, [facility] CALCIUM, IONIZED 2019-08-21 20:50:00 Kimberly, [facility] BLOOD GAS, ARTERIAL 2019-08-21 20:50:00 Kimberly, Joelfllisa [facility] CBC W/PLT COUNT & AUTO DIFFERENTIAL 2019-08-21 20:50:00 KimberlyIsaacirvin [facility] ANESTHESIA LAYNE 2019-08-21 20:17:34 Katerine Leroy [facility] CYTOLOGY REQUEST 2019-08-21 20:15:31 Soni [facility] CYTOLOGY 2019-08-21 20:15:00 Soni [facility] AFB CULTURE + SMEAR (NON-SPUTUM) 2019-08-21 20:09:09 Arvind Shafer [facility] FUNGUS CULTURE + SMEAR 2019-08-21 20:09:09 Soni [facility] ANAEROBIC CULTURE 2019-08-21 20:09:09 Soni [facility] BODY FLUID CULTURE + GRAM STAIN 2019-08-21 20:09:09 Sybil Shafer [facility] AFB CULTURE + SMEAR (NON-SPUTUM) 2019-08-21 20:00:03 Arvind Shafer [facility] ANAEROBIC CULTURE 2019-08-21 20:00:03 Soni [facility] FUNGUS CULTURE + SMEAR 2019-08-21 20:00:03 Soni Eduardo [facility] BODY FLUID CULTURE + GRAM STAIN 2019-08-21 20:00:03 Sybil Shafer [facility] AFB CULTURE + SMEAR (NON-SPUTUM) 2019-08-21 19:56:52 SoniArvind Sebastian [facility] ANAEROBIC CULTURE 2019-08-21 19:56:52 Eduardo Shafer [facility] FUNGUS CULTURE + SMEAR 2019-08-21 19:56:52 Eduardo Shafermichelle ios [facility] SURGICALLY OBTAINED CULTURE + GRAM STAIN 2019-08-21 19:56:52 Eduardo Shafer Sebastian [facility] TISSUE EXAM 2019-08-21 19:56:00 Eduardo Shaferilios [facility] CYTOLOGY REQUEST 2019-08-21 19:49:56 Eduardo Shafer [facility] CYTOLOGY 2019-08-21 19:49:00 Eduardo Shafer Sebastian [facility] BLOOD CULTURE 2019-08-21 18:35:00 Corazon Torres [facility] THORACOSCOPY (VATS),CREATION OF PERICARDIAL WINDOW 2019-08-12 0 18:33:00 Eduardo Shaferilios [facility] CREATION,PERICARDIAL WINDOW 2019-08-21 18:33:00 Eduardo Shafer [facility] LAYNE 2019-08-21 18:33:00 Eduardo Shafer [facility] INSERTION,CHEST TUBE 2019-08-21 18:33:00 Eduardo Shafer Sebastian [facility] BLOOD CULTURE 2019-08-21 17:47:00 Corazon Torres [facility] ABORH, MANUAL 2019-08-21 17:31:00 Nella Saunders [facility] 2D ECHO W/ DOPPLER (CW/PW/COLOR) 2019-08-21 17:30:20 Moisés Torres [facility] VANCOMYCIN LEVEL, RANDOM 2019-08-21 17:30:00 Corazon Torres [facility] RESPIRATORY PANEL [facility] 2019-08-21 17:27:00 Corazon Torres [facility] B-TYPE NATRIURETIC FACTOR (BNP) 2019-08-21 17:27:00 Nito Torres A [facility] ECG 12-LEAD 2019-08-21 17:02:17 Unknown, Hl7 Doctor [facility] ECG 12-LEAD 2019-08-21 16:58:55 Unknown, Hl7 Doctor [facility] LACTIC ACID, ARTERIAL 2019-08-21 16:40:00 Corazon Torres [facility] COMPREHENSIVE METABOLIC PANEL 2019-08-21 16:40:00 BoCorazon alatorre [facility] PROTHROMBIN TIME/INR 2019-08-21 16:40:00 Corazon Torres [facility] APTT 2019-08-21 16:40:00 Corazon Torres [facility] FIBRINOGEN 2019-08-21 16:40:00 Corazon Torres [facility] BLOOD GAS, VENOUS 2019-08-21 16:40:00 Corazon Torres [facility] MAGNESIUM 2019-08-21 16:40:00 BoCorazon alatorre [facility] PHOSPHORUS 2019-08-21 16:40:00 Corazon Torres [facility] TYPE AND SCREEN, AUTOMATED 2019-08-21 16:40:00 Corazon Torres [facility] CBC W/PLT COUNT & AUTO DIFFERENTIAL 2019-08-21 16:40:00 Corazon Torres [facility] Computed tomography of chest with contrast 2019-08-14 00:00:00 CECI SEPULVEDA [facility] [U] XRAY FEMUR 2 VWS RIGHT [id number] 2019-08-03 00:00:00 [facility] [U] XRAY FEMUR 2 VWS RIGHT [id number] 2019-06-26 00:00:00 [facility] [U] XRAY FEMUR 2 VWS RIGHT [id number] 2019-06-08 00:00:00 [facility] XRAY Ribs bilateral with PA chest [id number] 2019-05-12 00:00:00 [facility] [U] XRAY BONE LENGTH STUDY-SCANOGRAM [id number] 2019-04-24 00:00:00 [facility] [U] XRAY KNEE 1 OR 2 VWS RIGHT [id number] 2019-04-24 00:00:00 [facility] Post Op Promis 29 Survey 2019-03-07 00:00:00 Uni versity [facility] History of Hernia Repair [facility] History of Lower Back Surgery Un iversity [facility] History of Ankle Surgery [facility] History of Cath Placement Of Stent 1 [facility] Plan of Care Planned Activity Planned Date Details Comments Source Future Scheduled Test 2020-04-12 00:00:00 [N] 2D Echo comple te, with Doppler 44280 [code = [N] 2D Echo complete, with Doppler 78180] [facility] Future Scheduled Test 2020-02-12 00:00:00 INFLUENZA VACCINE (#1) [code = INFLUENZA VACCINE (#1)] [facility] Future Scheduled Test 2020-01-12 00:00:00 [QL] TSH, 3RD GENE RATION W/REFLEX TO FT4 [code = [QL] TSH, 3RD GENERATION W/REFLEX TO FT4] [facility] Diagnostic Test Pending 2019-10-01 00:00:00 [N] 2D Echo comp lete, with Doppler 97946 [code = [N] 2D Echo complete, with Doppler 41082] [facility] Diagnostic Test Pending 2019-10-01 00:00:00 [N] Nuclear Test -Adenosine Stress Perfusion [code = [N] Nuclear Test-Adenosine Stress Perfusion] [facility] Diagnostic Test Pending 2019-08-15 00:00:00 [U] XRAY FEMUR 2 VWS RIGHT [id number] [code = 51117] [facility] Future Scheduled Test 2019-06-13 00:00:00 Medicare IPPE (WEL COME TO MEDICARE) [code = Medicare IPPE (WELCOME TO MEDICARE)] [facility] Future Scheduled Test 2013-10-08 14:37:32 Plan of Care [code = 1877 6-5] [facility] Future Scheduled Test 2013-10-05 13:48:15 Plan of Care [code = 1877 6-5] [facility] Scheduled Test 2013-08-30 20:33:44 Plan of Care [code = 1877 6-5] [facility] Scheduled Test 2013-08-24 21:21:29 Plan of Care [code = 1877 6-5] [facility] Scheduled Test 2013-07-06 18:46:34 Plan of Care [code = 1877 6-5] [facility] Scheduled Test 2013-05-22 21:34:17 Plan of Care [code = 1877 6-5] [facility] Scheduled Test 2013-05-17 15:37:13 Plan of Care [code = 1877 6-5] [facility] Scheduled Test 2013-03-02 22:46:27 Plan of Care [code = 1877 6-5] [facility] Scheduled Test 2013-02-14 15:49:06 Plan of Care [code = 1877 6-5] [facility] Appointment 2020-05-30 10:15:00 Tatyana PONCE, [facility] Future Appointment 2020-05-12 10:00:00 Tatyana RASHID, [facility] Future Appointment 2020-05-07 10:00:00 [facility] Encounters Start Date/Time End Date/Time Encounter Type Admission Type Att[facility] Care Department Encounter ID Source 2019-02-19 08:16:00 Inpatient MHSE MHSE [id number] [facility] 2020-04-17 14:00:00 2020-04-17 14:00:00 Appointment; TAMAR MARIANO P.A. CAMPOS, BERTHA, P.AYajaira [facility], [address] [id number] [facility] 2020-03-13 09:30:00 2020-03-13 09:30:00 Appointment; TAMAR MARIANO P.A. CAMPOS, BERTHA, P.AYajaira [facility], [address] [id number] [facility] 2020-03-07 09:30:00 2020-03-07 09:30:00 Appointment; KRIS BLANC M.D. HUANG, EDDIE, M.D. [facility] Orthopedics [facility] [id number] [facility] 2020-02-11 10:00:00 2020-02-11 10:00:00 Appointment; JESS KAY M.D. DHOBLE, ABHIJEET, M.D. [facility] [id number] [facility] 2020-02-05 12:00:00 2020-02-05 12:00:00 Appointment; JAREN PETERS AP RN LEO, MAURA, APRN [facility] Orthopedics [facility] [id number] [facility] 2020-02-04 10:00:00 2020-02-04 10:00:00 Appointment; TAMAR MARIANO P.A. CAMPOS, BERTHA, P.A. [facility], [facility] 2 [id number] [facility] 2020-01-19 10:15:00 2020-01-19 10:15:00 Appointment; DOMINIQUE FLORIAN A PRN ELLIS, MARK, APRN [facility] [id number] [facility] 2020-01-19 10:00:00 2020-01-19 10:00:00 Appointment; DOMINIQUE FLORIAN A PRN ELLIS, MARK, APRN [facility], [facility] 2 [id number] [facility] 2020-01-14 10:00:00 2020-01-14 10:00:00 Appointment; JAREN PETERS AP RN LEO, MAURA, APRN [facility] Orthopedics [facility] [id number] [facility] 2020-01-02 09:45:00 2020-01-02 09:45:00 Appointment; KRIS BLANC M.D. HUANG, EDDIE, M.D. [facility] [id number] [facility] 2019-12-31 13:45:00 2019-12-31 13:45:00 Appointment; KRIS BLANC M.D. HUANG, EDDIE, M.D. [facility] Orthopedics [facility] [id number] [facility] 2019-12-12 08:40:00 2019-12-12 08:40:00 Appointment; JESS KAY M.D. DHOBLE, ABHIJEET, M.D. [facility] [id number] [facility] 2019-12-10 08:45:00 2019-12-10 08:45:00 Appointment; Anjelica [facility]ROW [facility], NUCLEAR [facility] [id number] [facility] 2019-12-05 09:30:00 2019-12-05 09:30:00 Appointment; KRIS BLANC M.D. HUANG, EDDIE, M.D. [facility] [id number] [facility] 2019-11-20 09:00:00 2019-11-20 09:00:00 Appointment; KRIS BLANC M.D. HUANG, EDDIE, M.D. [facility] [id number] [facility] 2019-11-20 05:46:00 2019-11-20 05:46:00 Outpatient MHSE MHSE [id number] [facility] 2019-11-02 08:00:00 2019-11-02 08:00:00 Appointment; TAMAR MARIANO P.A. CAMPOS, BERTHA, P.AYajaira [facility], [address] [id number] [facility] 2019-10-31 13:45:00 2019-10-31 13:45:00 Appointment; KRIS BLANC M.D. HUANG, EDDIE, M.D. [facility] [id number] [facility] 2019-10-30 09:15:00 2019-10-30 09:15:00 Appointment; TAMAR MARIANO P.A. CAMPOS, BERTHA, P.A. [facility], [address] [id number] [facility] 2019-10-30 09:15:00 2019-10-30 09:15:00 Appointment; TAMAR MARIANO P.A. CAMPOS, BERTHA, P.A. [facility] [id number] [facility] 2019-10-01 10:20:00 2019-10-01 10:20:00 Appointment; JESS KAY M.D. DHOBLE, ABHIJEET, M.D. [facility] [id number] [facility] 2019-09-25 09:00:00 2019-09-25 09:00:00 Appointment; TIMOTHY HYATT M.D. MOHEYUDDIN, AMINA, M.D. [facility] [id number] [facility] 2019-08-14 09:27:00 2019-08-16 11:15:00 Discharged Inpatient 1 GRETTA RODARTE [facility] [id number] [facility] 2019-08-15 11:30:00 2019-08-15 11:30:00 Appointment; BARBARA HENDERSON M.D. CHOO, ANDREW, M.D. [facility] Orthopedics Trauma [facility] [id number] [facility] 2019-07-04 11:30:00 2019-07-04 11:30:00 Appointment; BARBARA HENDERSON M.D. CHOO, ANDREW, M.D. [facility] Orthopedics Trauma [facility] [id number] [facility] 2019-06-21 10:00:00 2019-06-21 10:00:00 Appointment; TAMAR MARIANO P.A. CAMPOS, BERTHA, P.A. [facility], [address] [id number] [facility] 2019-06-08 11:00:00 2019-06-08 11:00:00 Appointment; BARBARA HENDERSON M.D. CHOO, ANDREW, M.D. [facility], [address] [id number] [facility] 2019-05-31 10:00:00 2019-05-31 10:00:00 Appointment; TAMAR MARIANO P.A. CAMPOS, BERTHA, P.A. [facility] [id number] [facility] 2019-05-25 13:00:00 2019-05-25 13:00:00 Appointment; BARBARA HENDERSON M.D. CHOO, ANDREW, M.D. [facility] [id number] [facility] 2019-05-24 17:27:00 2019-05-24 13:01:00 Inpatient E [facility] MED [id number] [facility] 2019-05-23 11:07:00 2019-05-23 15:37:00 Departed Emergency Room 1 CECI RODARTE [facility] [id number] [facility] 2019-05-12 07:30:00 2019-05-12 07:30:00 Appointment; DAISY MARCOS A PRN SAXE, KAILA, APRN [facility] [id number] [facility] 2019-04-25 14:30:00 2019-04-25 14:30:00 Appointment; KRIS BLANC M.D. HUANG, EDDIE, M.D. [facility] Orthopedics [facility] [id number] [facility] 2019-04-25 08:40:00 2019-04-25 08:40:00 Appointment; JESS KAY M.D. DHOBLE, ABHIJEET, M.D. [facility] [id number] [facility] 2019-04-23 13:30:00 2019-04-23 13:30:00 Appointment; TAMAR MARIANO P.A. CAMPOS, BERTHA, P.A. [facility], [facility] 2 [id number] [facility] 2019-03-14 12:14:00 2019-03-14 08:21:00 Inpatient E [facility] MED [id number] [facility] 2019-03-10 10:13:00 2019-03-10 10:13:00 Emergency E MHSE MHSE [id number] [facility] 2019-03-10 09:30:00 2019-03-10 09:30:00 Appointment; SID SCHMITT P.A. SPOONER, JOSEPH, P.A. [facility] [id number] [facility] 2019-02-19 09:00:00 2019-02-19 09:00:00 Appointment; KRIS BLANC M.D. HUANG, EDDIE, M.D. [facility] [id number] [facility] 2019-02-14 09:30:00 2019-02-14 09:30:00 Appointment; KRIS BLANC M.D. HUANG, EDDIE, M.D. [facility] [id number] [facility] 2019-01-18 09:30:00 2019-01-18 09:30:00 Appointment; KRIS BLANC M.D. HUANG, EDDIE, M.D. [facility] [id number] [facility] 2019-01-08 11:00:00 2019-01-08 11:00:00 Appointment; TAMAR MARIANO P.A. CAMPOS, BERTHA PYajairaAYajaira UTP UTP [id number] [facility] 2018-12-28 10:00:00 2018-12-28 10:00:00 Appointment; KRIS BLANC M.D. HUANG, EDDIE, M.D. [facility] UTP [id number] [facility] 2018-12-11 10:20:00 2018-12-11 10:20:00 Appointment; JESS KAY M.D. DHOBLE, ABHIJEET, M.D. UTP UTP [id number] [facility] 2018-11-28 12:00:00 2018-11-28 12:00:00 Appointment; SID SCHMITT P.A. SPOONER, JOSEPH, P.A. UTP UTP [id number] [facility] 2018-10-20 13:00:00 2018-10-20 13:00:00 Appointment; AIDE PASTRANA P.A. CRUZ, LETICIA PHan UTP UTP [id number] [facility] 2018-08-28 08:00:00 2018-08-28 08:00:00 Appointment; TAMAR MARIANO P.A. CAMPOS, BERTHA, P.A. UTP UTP [id number] [facility] 2018-08-23 07:30:00 2018-08-23 07:30:00 Appointment; TAMAR MARIANO P.A. CAMPOS, BERTHA, P.A. UTP UTP [id number] [facility] 2018-06-07 13:45:00 2018-06-07 13:45:00 Appointment; LUCY GEORGES D.O. YEH, SHAO-CHUN, D.O. UTP UTP [id number] [facility] 2018-02-20 08:30:00 2018-02-20 08:30:00 Appointment; BING ROMERO M.D. MURPHY, THOMAS, M.D. [facility] UTP [id number] [facility] 2018-02-14 09:00:00 2018-02-14 09:00:00 Appointment; TAMAR MARIANO P.A. CAMPOS, BERTHA, P.A. UTP UTP [id number] [facility] 2017-12-12 11:20:00 2017-12-12 11:20:00 Appointment; JESS KAY M.D. DHOBLE, ABHIJEET, M.D. [facility] UTP [id number] [facility] 2017-11-15 08:45:00 2017-11-15 08:45:00 Appointment; TAMAR MARIANO P.A. CAMPOS, BERTHA, P.A. UTP UTP [id number] [facility] 2017-09-06 14:30:00 2017-09-06 14:30:00 Appointment; DODIE JACOBS M.D. SATTAR, BEENA, M.D. [facility] UTP [id number] [facility] 2017-08-23 15:00:00 2017-08-23 15:00:00 Appointment; DODIE JACOBS M.D. SATTAR, BEENA, M.D. [facility] UTP [id number] [facility] 2017-08-19 13:15:00 2017-08-19 13:15:00 Appointment; DODIE JACOBS M.D. SATTAR, BEENA, M.D. [facility] UTP [id number] [facility] 2017-08-15 08:15:00 2017-08-15 08:15:00 Appointment; TAMAR MARIANO P.A. CAMPOS, BERTHA, P.A. [facility] UTP [id number] [facility] 2013-10-08 09:37:32 2013-10-08 09:37:32 Outpatient MHIE MHIE [id number] 2013-10-05 08:48:16 2013-10-05 08:48:15 Outpatient MHIE MHIE [id number] 2013-08-30 15:33:45 2013-08-30 15:33:44 Outpatient MHIE MHIE [id number] 2013-08-24 16:21:29 2013-08-24 16:21:29 Outpatient MHIE MHIE [id number] 2013-07-06 12:46:34 2013-07-06 12:46:34 Outpatient MHIE MHIE [id number] 2013-05-22 15:34:18 2013-05-22 15:34:17 Outpatient MHIE MHIE [id number] 2013-05-17 09:37:14 2013-05-17 09:37:13 Outpatient MHIE MHIE [id number] 2013-03-02 17:46:28 2013-03-02 17:46:27 Outpatient MHIE MHIE [id number] 2013-02-14 10:49:29 2013-02-14 10:49:06 Outpatient MHIE MHIE [id number] 2013-01-20 01:12:27 2013-01-20 01:11:48 Outpatient MHIE MHIE [id number] 2013-01-11 04:26:14 2013-01-11 04:26:10 Outpatient MHIE MHIE [id number] 2013-01-06 04:04:31 2013-01-06 04:04:11 Outpatient MHIE MHIE [id number] 2012-11-14 04:13:20 2012-11-14 04:13:01 Outpatient MHIE MHIE [id number] 2012-08-31 22:40:50 2012-08-31 22:40:32 Outpatient MHIE MHIE [id number] 2012-07-27 19:51:44 2012-07-27 19:51:28 Outpatient MHIE MHIE [id number] 2012-07-14 20:08:07 2012-07-14 20:07:51 Outpatient MHIE MHIE [id number] 2012-07-06 21:40:48 2012-07-06 21:40:31 Outpatient MHIE MHIE [id number] Results Test Description Test Time Test Comments Results Result Comments Source [QL] CULTURE, URINE, ROUTINE 2020-03-13 00:00:00 Test Item CULTURE (test code = CULTURE) See Comment CULTURE, URINE, ROUTINE Micro Number: [id number] Test Status: Final Specimen Source: URINE Specimen Quality: Adequate Result: Growth of mixed shira was isolated, suggesting probable contamination. No further testing will be performed. If clinically indicated, recollection using a method to minimize contamination, with prompt transfer to Urine Culture Transport Tube, is recommended. [facility][U] XRAY FEMUR 2 VWS RIGHT [id number] 10:19:00Images acquired, not reported on this accession number.[facility][QL] TSH, 3RD GENERATION W/REFLEX TO [id number] 11:31:00* Test Item Value Reference Range Interpretation Comments TSH, 3RD GENERATION W/REFLEX TO FT4 (enmanuel t code = TSH, 3RD GENERATION W/REFLEX TO FT4) 2.20 {MIU/L} 0.40-4.50 N [facility][QL] THYROID [id number] 11:31:00* Test Item Value Reference Range Interpretation Comments T3 UPTAKE (test code = T3 UPTAKE) 35 % 22-35 N T4 (THYROXINE), TOTAL (test code = T4 (THYROXINE), TOTAL) 10 .0 {mcg/dl} 4.9-10.5 N FREE T4 INDEX (T7) (test code = FREE T4 INDEX (T7)) 3.5 1. 4-3.8 N [facility]OLIC [id number] 06:37:00* Test Item Value Reference Range Interpretation Comments SODIUM (test code = NA) 136 mmol/L 136-145 N POTASSIUM (test code = K) 4.2 mmol/L 3.5-5.1 N CHLORIDE (test code = CL) 104.0 mmol/L 98-107 N CARBON DIOXIDE (test code = CO2) 27.0 mmol/L 21-32 N ANION GAP (test code = GAP) 9.2 10-20 L GLUCOSE (test code = GLU) 121 mg/dL 74-106 H BLOOD UREA NITROGEN (test code = BUN) 21 mg/dL 7-18 H GLOMERULAR FILTRATION RATE (test code = GFR) 45 mL/min >=60 Estimated GFR by using Modified MDRD formula.Chronic kidney disease is defined as either kidney damageor GFR <60 mL/min/1.73 m2 for >3 months. CREATININE (test code = CREAT) 1.50 mg/dL 0.7-1.3 H BUN/CREATININE RATIO (test code = BUN/CREA) 14.2 10-20 N CALCIUM (test code = CA) 8.7 mg/dL 8.5-10.1 N BASIC METABOLIC [id number] 06:32:00* Test Item Value Reference Range Interpretation Comments SODIUM (test code = NA) 136 mmol/L 136-145 N POTASSIUM (test code = K) 4.2 mmol/L 3.5-5.1 N CHLORIDE (test code = CL) 104.0 mmol/L 98-107 N CARBON DIOXIDE (test code = CO2) mmol/L 21-32 ANION GAP (test code = GAP) 10-20 GLUCOSE (test code = GLU) mg/dL 74-106 BLOOD UREA NITROGEN (test code = BUN) mg/dL 7-18 GLOMERULAR FILTRATION RATE (test code = GFR) mL/min >=60 CREATININE (test code = CREAT) mg/dL 0.7-1.3 BUN/CREATININE RATIO (test code = BUN/CREA) 10-20 CALCIUM (test code = CA) mg/dL 8.5-10.1 CBC W/AUTO [id number] 06:22:00* Test Item Value Reference Range Interpretation Comments WHITE BLOOD CELL (test code = WBC) 5.0 K/mm3 4.5-12.5 N RED BLOOD CELL (test code = RBC) 3.64 mill/mm3 4.0-5.8 L HEMOGLOBIN (test code = HGB) 10.7 gram/dL 13.0-17.5 L HEMATOCRIT (test code = HCT) 33.3 % 42.0-52.0 L MEAN CELL VOLUME (test code = MCV) 91.5 fL 80-98 N MEAN CELL HGB (test code = MCH) 29.4 picogram 27.0-33.0 N MEAN CELL HGB CONCETRATION (test code = MCHC) 32.1 gram/dL 33.0-36. 0 L RED CELL DISTRIBUTION WIDTH (test code = RDW) 13.1 % 11.6-16. 2 N RED CELL DISTRIBUTION WIDTH SD (test code = RDW-SD) 44.3 fL 37 .0-51.0 N PLATELET COUNT (test code = PLT) 120 K/mm3 150-450 L MEAN PLATELET VOLUME (test code = MPV) 12.9 fL 6.7-11.0 H NEUTROPHIL % (test code = NT%) 89.6 % 39.0-69.0 H IMMATURE GRANULOCYTE % (test code = IG%) 0.4 % 0.0-5.0 N LYMPHOCYTE % (test code = LY%) 4.2 % 25.0-55.0 L MONOCYTE % (test code = MO%) 5.8 % 0.0-10.0 N EOSINOPHIL % (test code = EO%) 0.0 % 0.0-5.0 N BASOPHIL % (test code = BA%) 0.0 % 0.0-1.0 N NUCLEATED RBC % (test code = NRBC%) 0.0 % 0-0 N NEUTROPHIL # (test code = NT#) 4.46 K/mm3 1.8-7.7 N IMMATURE GRANULOCYTE # (test code = IG#) 0.02 x10 3/uL 0-0.03 N LYMPHOCYTE # (test code = LY#) 0.21 K/mm3 1.0-5.0 L MONOCYTE # (test code = MO#) 0.29 K/mm3 0-0.8 N EOSINOPHIL # (test code = EO#) 0.00 K/mm3 0.0-0.5 N BASOPHIL # (test code = BA#) 0.00 K/mm3 0.0-0.2 N NUCLEATED RBC # (test code = NRBC#) 0.00 K/mm3 0.0-0.1 N MANUAL DIFF REQUIRED (test code = MDIFF) NO THROMBOPLASTIN TIME [id number] 06:40:00* Test Item Value Reference Range Interpretation Comments THROMBOPLASTIN TIME PARTIAL (test code = PTT) 32.1 seconds 23.0-37. 0 N IS PATIENT ON ANTICOAGULANTS? YLIST ANTICOAGULANTS HEPARINHEPARIN INDUCED [id number] 01:36:00* Test Item Value Reference Range Interpretation Comments HEPARIN INDUCED THROMBOCYTOPEN (test code = HIT) NEGATIVE NEGAT MATTIE CBC W/AUTO [id number] 05:34:00* Test Item Value Reference Range Interpretation Comments WHITE BLOOD CELL (test code = WBC) 4.5 K/mm3 4.5-12.5 N RED BLOOD CELL (test code = RBC) 3.92 mill/mm3 4.0-5.8 L HEMOGLOBIN (test code = HGB) 11.5 gram/dL 13.0-17.5 L HEMATOCRIT (test code = HCT) 36.4 % 42.0-52.0 L MEAN CELL VOLUME (test code = MCV) 92.9 fL 80-98 N MEAN CELL HGB (test code = MCH) 29.3 picogram 27.0-33.0 N MEAN CELL HGB CONCETRATION (test code = MCHC) 31.6 gram/dL 33.0-36. 0 L RED CELL DISTRIBUTION WIDTH (test code = RDW) 13.2 % 11.6-16. 2 N RED CELL DISTRIBUTION WIDTH SD (test code = RDW-SD) 44.9 fL 37 .0-51.0 N PLATELET COUNT (test code = PLT) 91 K/mm3 150-450 L MEAN PLATELET VOLUME (test code = MPV) 12.7 fL 6.7-11.0 H NEUTROPHIL % (test code = NT%) 65.9 % 39.0-69.0 N IMMATURE GRANULOCYTE % (test code = IG%) 0.4 % 0.0-5.0 N LYMPHOCYTE % (test code = LY%) 14.3 % 25.0-55.0 L MONOCYTE % (test code = MO%) 17.2 % 0.0-10.0 H EOSINOPHIL % (test code = EO%) 2.0 % 0.0-5.0 N BASOPHIL % (test code = BA%) 0.2 % 0.0-1.0 N NUCLEATED RBC % (test code = NRBC%) 0.0 % 0-0 N NEUTROPHIL # (test code = NT#) 2.94 K/mm3 1.8-7.7 N IMMATURE GRANULOCYTE # (test code = IG#) 0.02 x10 3/uL 0-0.03 N LYMPHOCYTE # (test code = LY#) 0.64 K/mm3 1.0-5.0 L MONOCYTE # (test code = MO#) 0.77 K/mm3 0-0.8 N EOSINOPHIL # (test code = EO#) 0.09 K/mm3 0.0-0.5 N BASOPHIL # (test code = BA#) 0.01 K/mm3 0.0-0.2 N NUCLEATED RBC # (test code = NRBC#) 0.00 K/mm3 0.0-0.1 N MANUAL DIFF REQUIRED (test code = MDIFF) NO, ONLY SCAN NEEDED DIFFERENTIAL [id number] 05:34:00* Test Item Value Reference Range Interpretation Comments STAIN ACCEPTABILITY (test code = STN ACCEPTABLE) STAIN ACCEPTABLE ANISOCYTOSIS (test code = ANISO) 1+ MORPHOLOGY COMMENT (test code = MOC) TEST NOT PERFORMED PLATELET ESTIMATE (test code = PLTEST) DECREASED PLATELET MORPHOLOGY (test code = PLTMORPH) NORMAL THROMBOPLASTIN TIME [id number] 05:34:00* Test Item Value Reference Range Interpretation Comments THROMBOPLASTIN TIME PARTIAL (test code = PTT) 62.7 seconds 23.0-37. 0 H IS PATIENT ON ANTICOAGULANTS? YLIST ANTICOAGULANTS HEPARINCOMMENTS TO PHLEBO TOMIST: DRAW FROM RIGHT ARM.B-TYPE NATRIURETIC [id number] 05:32:00* Test Item Value Reference Range Interpretation Comments B-TYPE NATRIURETIC PEPTIDE (test code = BNP) 562.85 pgram/mL 0-100 H BASIC METABOLIC [id number] 05:19:00* Test Item Value Reference Range Interpretation Comments SODIUM (test code = NA) 134 mmol/L 136-145 L POTASSIUM (test code = K) 4.0 mmol/L 3.5-5.1 N CHLORIDE (test code = CL) 100.0 mmol/L 98-107 N CARBON DIOXIDE (test code = CO2) 28.0 mmol/L 21-32 N ANION GAP (test code = GAP) 10.0 10-20 N GLUCOSE (test code = GLU) 87 mg/dL 74-106 N BLOOD UREA NITROGEN (test code = BUN) 27 mg/dL 7-18 H GLOMERULAR FILTRATION RATE (test code = GFR) 32 mL/min >=60 Estimated GFR by using Modified MDRD formula.Chronic kidney disease is defined as either kidney damageor GFR <60 mL/min/1.73 m2 for >3 months. CREATININE (test code = CREAT) 2.00 mg/dL 0.7-1.3 H BUN/CREATININE RATIO (test code = BUN/CREA) 13.7 10-20 N CALCIUM (test code = CA) 8.8 mg/dL 8.5-10.1 N [id number] 05:19:00* Test Item Value Reference Range Interpretation Comments MAGNESIUM (test code = MAG) 2.4 mg/dL 1.8-2.4 N CBC W/AUTO [id number] 04:55:00* Test Item Value Reference Range Interpretation Comments WHITE BLOOD CELL (test code = WBC) 4.5 K/mm3 4.5-12.5 N RED BLOOD CELL (test code = RBC) 3.92 mill/mm3 4.0-5.8 L HEMOGLOBIN (test code = HGB) 11.5 gram/dL 13.0-17.5 L HEMATOCRIT (test code = HCT) 36.4 % 42.0-52.0 L MEAN CELL VOLUME (test code = MCV) 92.9 fL 80-98 N MEAN CELL HGB (test code = MCH) 29.3 picogram 27.0-33.0 N MEAN CELL HGB CONCETRATION (test code = MCHC) 31.6 gram/dL 33.0-36. 0 L RED CELL DISTRIBUTION WIDTH (test code = RDW) 13.2 % 11.6-16. 2 N RED CELL DISTRIBUTION WIDTH SD (test code = RDW-SD) 44.9 fL 37 .0-51.0 N PLATELET COUNT (test code = PLT) 91 K/mm3 150-450 L MEAN PLATELET VOLUME (test code = MPV) 12.7 fL 6.7-11.0 H NEUTROPHIL % (test code = NT%) 65.9 % 39.0-69.0 N IMMATURE GRANULOCYTE % (test code = IG%) 0.4 % 0.0-5.0 N LYMPHOCYTE % (test code = LY%) 14.3 % 25.0-55.0 L MONOCYTE % (test code = MO%) 17.2 % 0.0-10.0 H EOSINOPHIL % (test code = EO%) 2.0 % 0.0-5.0 N BASOPHIL % (test code = BA%) 0.2 % 0.0-1.0 N NUCLEATED RBC % (test code = NRBC%) 0.0 % 0-0 N NEUTROPHIL # (test code = NT#) 2.94 K/mm3 1.8-7.7 N IMMATURE GRANULOCYTE # (test code = IG#) 0.02 x10 3/uL 0-0.03 N LYMPHOCYTE # (test code = LY#) 0.64 K/mm3 1.0-5.0 L MONOCYTE # (test code = MO#) 0.77 K/mm3 0-0.8 N EOSINOPHIL # (test code = EO#) 0.09 K/mm3 0.0-0.5 N BASOPHIL # (test code = BA#) 0.01 K/mm3 0.0-0.2 N NUCLEATED RBC # (test code = NRBC#) 0.00 K/mm3 0.0-0.1 N MANUAL DIFF REQUIRED (test code = MDIFF) NO, ONLY SCAN NEEDED DIFFERENTIAL [id number] 04:55:00* Test Item Value Reference Range Interpretation Comments STAIN ACCEPTABILITY (test code = STN ACCEPTABLE) CABOT RINGS (test code = CAB) MORPHOLOGY COMMENT (test code = MOC) PLATELET ESTIMATE (test code = PLTEST) PLATELET MORPHOLOGY (test code = PLTMORPH) CBC W/AUTO [id number] 04:55:00* Test Item Value Reference Range Interpretation Comments WHITE BLOOD CELL (test code = WBC) 4.5 K/mm3 4.5-12.5 N RED BLOOD CELL (test code = RBC) 3.92 mill/mm3 4.0-5.8 L HEMOGLOBIN (test code = HGB) 11.5 gram/dL 13.0-17.5 L HEMATOCRIT (test code = HCT) 36.4 % 42.0-52.0 L MEAN CELL VOLUME (test code = MCV) 92.9 fL 80-98 N MEAN CELL HGB (test code = MCH) 29.3 picogram 27.0-33.0 N MEAN CELL HGB CONCETRATION (test code = MCHC) 31.6 gram/dL 33.0-36. 0 L RED CELL DISTRIBUTION WIDTH (test code = RDW) 13.2 % 11.6-16. 2 N RED CELL DISTRIBUTION WIDTH SD (test code = RDW-SD) 44.9 fL 37 .0-51.0 N PLATELET COUNT (test code = PLT) 91 K/mm3 150-450 L MEAN PLATELET VOLUME (test code = MPV) 12.7 fL 6.7-11.0 H NEUTROPHIL % (test code = NT%) 65.9 % 39.0-69.0 N IMMATURE GRANULOCYTE % (test code = IG%) 0.4 % 0.0-5.0 N LYMPHOCYTE % (test code = LY%) 14.3 % 25.0-55.0 L MONOCYTE % (test code = MO%) 17.2 % 0.0-10.0 H EOSINOPHIL % (test code = EO%) 2.0 % 0.0-5.0 N BASOPHIL % (test code = BA%) 0.2 % 0.0-1.0 N NUCLEATED RBC % (test code = NRBC%) 0.0 % 0-0 N NEUTROPHIL # (test code = NT#) 2.94 K/mm3 1.8-7.7 N IMMATURE GRANULOCYTE # (test code = IG#) 0.02 x10 3/uL 0-0.03 N LYMPHOCYTE # (test code = LY#) 0.64 K/mm3 1.0-5.0 L MONOCYTE # (test code = MO#) 0.77 K/mm3 0-0.8 N EOSINOPHIL # (test code = EO#) 0.09 K/mm3 0.0-0.5 N BASOPHIL # (test code = BA#) 0.01 K/mm3 0.0-0.2 N NUCLEATED RBC # (test code = NRBC#) 0.00 K/mm3 0.0-0.1 N MANUAL DIFF REQUIRED (test code = MDIFF) NO, ONLY SCAN NEEDED DIFFERENTIAL [id number] 04:55:00* Test Item Value Reference Range Interpretation Comments STAIN ACCEPTABILITY (test code = STN ACCEPTABLE) CABOT RINGS (test code = CAB) MORPHOLOGY COMMENT (test code = MOC) PLATELET ESTIMATE (test code = PLTEST) PLATELET MORPHOLOGY (test code = PLTMORPH) CBC W/AUTO [id number] 04:55:00* Test Item Value Reference Range Interpretation Comments WHITE BLOOD CELL (test code = WBC) 4.5 K/mm3 4.5-12.5 N RED BLOOD CELL (test code = RBC) 3.92 mill/mm3 4.0-5.8 L HEMOGLOBIN (test code = HGB) 11.5 gram/dL 13.0-17.5 L HEMATOCRIT (test code = HCT) 36.4 % 42.0-52.0 L MEAN CELL VOLUME (test code = MCV) 92.9 fL 80-98 N MEAN CELL HGB (test code = MCH) 29.3 picogram 27.0-33.0 N MEAN CELL HGB CONCETRATION (test code = MCHC) 31.6 gram/dL 33.0-36. 0 L RED CELL DISTRIBUTION WIDTH (test code = RDW) 13.2 % 11.6-16. 2 N RED CELL DISTRIBUTION WIDTH SD (test code = RDW-SD) 44.9 fL 37 .0-51.0 N PLATELET COUNT (test code = PLT) 91 K/mm3 150-450 L MEAN PLATELET VOLUME (test code = MPV) 12.7 fL 6.7-11.0 H NEUTROPHIL % (test code = NT%) 65.9 % 39.0-69.0 N IMMATURE GRANULOCYTE % (test code = IG%) 0.4 % 0.0-5.0 N LYMPHOCYTE % (test code = LY%) 14.3 % 25.0-55.0 L MONOCYTE % (test code = MO%) 17.2 % 0.0-10.0 H EOSINOPHIL % (test code = EO%) 2.0 % 0.0-5.0 N BASOPHIL % (test code = BA%) 0.2 % 0.0-1.0 N NUCLEATED RBC % (test code = NRBC%) 0.0 % 0-0 N NEUTROPHIL # (test code = NT#) 2.94 K/mm3 1.8-7.7 N IMMATURE GRANULOCYTE # (test code = IG#) 0.02 x10 3/uL 0-0.03 N LYMPHOCYTE # (test code = LY#) 0.64 K/mm3 1.0-5.0 L MONOCYTE # (test code = MO#) 0.77 K/mm3 0-0.8 N EOSINOPHIL # (test code = EO#) 0.09 K/mm3 0.0-0.5 N BASOPHIL # (test code = BA#) 0.01 K/mm3 0.0-0.2 N NUCLEATED RBC # (test code = NRBC#) 0.00 K/mm3 0.0-0.1 N MANUAL DIFF REQUIRED (test code = MDIFF) NO, ONLY SCAN NEEDED DIFFERENTIAL [id number] 04:55:00* Test Item Value Reference Range Interpretation Comments STAIN ACCEPTABILITY (test code = STN ACCEPTABLE) MORPHOLOGY COMMENT (test code = MOC) PLATELET ESTIMATE (test code = PLTEST) PLATELET MORPHOLOGY (test code = PLTMORPH) CBC W/AUTO [id number] 04:55:00* Test Item Value Reference Range Interpretation Comments WHITE BLOOD CELL (test code = WBC) 4.5 K/mm3 4.5-12.5 N RED BLOOD CELL (test code = RBC) 3.92 mill/mm3 4.0-5.8 L HEMOGLOBIN (test code = HGB) 11.5 gram/dL 13.0-17.5 L HEMATOCRIT (test code = HCT) 36.4 % 42.0-52.0 L MEAN CELL VOLUME (test code = MCV) 92.9 fL 80-98 N MEAN CELL HGB (test code = MCH) 29.3 picogram 27.0-33.0 N MEAN CELL HGB CONCETRATION (test code = MCHC) 31.6 gram/dL 33.0-36. 0 L RED CELL DISTRIBUTION WIDTH (test code = RDW) 13.2 % 11.6-16. 2 N RED CELL DISTRIBUTION WIDTH SD (test code = RDW-SD) 44.9 fL 37 .0-51.0 N PLATELET COUNT (test code = PLT) 91 K/mm3 150-450 L MEAN PLATELET VOLUME (test code = MPV) 12.7 fL 6.7-11.0 H NEUTROPHIL % (test code = NT%) 65.9 % 39.0-69.0 N IMMATURE GRANULOCYTE % (test code = IG%) 0.4 % 0.0-5.0 N LYMPHOCYTE % (test code = LY%) 14.3 % 25.0-55.0 L MONOCYTE % (test code = MO%) 17.2 % 0.0-10.0 H EOSINOPHIL % (test code = EO%) 2.0 % 0.0-5.0 N BASOPHIL % (test code = BA%) 0.2 % 0.0-1.0 N NUCLEATED RBC % (test code = NRBC%) 0.0 % 0-0 N NEUTROPHIL # (test code = NT#) 2.94 K/mm3 1.8-7.7 N IMMATURE GRANULOCYTE # (test code = IG#) 0.02 x10 3/uL 0-0.03 N LYMPHOCYTE # (test code = LY#) 0.64 K/mm3 1.0-5.0 L MONOCYTE # (test code = MO#) 0.77 K/mm3 0-0.8 N EOSINOPHIL # (test code = EO#) 0.09 K/mm3 0.0-0.5 N BASOPHIL # (test code = BA#) 0.01 K/mm3 0.0-0.2 N NUCLEATED RBC # (test code = NRBC#) 0.00 K/mm3 0.0-0.1 N MANUAL DIFF REQUIRED (test code = MDIFF) NO, ONLY SCAN NEEDED DIFFERENTIAL [id number] 04:55:00* Test Item Value Reference Range Interpretation Comments STAIN ACCEPTABILITY (test code = STN ACCEPTABLE) CABOT RINGS (test code = CAB) MORPHOLOGY COMMENT (test code = MOC) PLATELET ESTIMATE (test code = PLTEST) PLATELET MORPHOLOGY (test code = PLTMORPH) THROMBOPLASTIN TIME [id number] 22:27:00* Test Item Value Reference Range Interpretation Comments THROMBOPLASTIN TIME PARTIAL (test code = PTT) 62.4 seconds 23.0-37. 0 H IS PATIENT ON ANTICOAGULANTS? YLIST ANTICOAGULANTS HEPARINCOVID 19 Asymptomatic IH [id number] 17:25:00* Test Item Value Reference Range Interpretation Comments COVID 19 Asymptomatic IH AG (test code = COVNONPUIAG) NEGATIVE THROMBOPLASTIN TIME [id number] 16:42:00* Test Item Value Reference Range Interpretation Comments THROMBOPLASTIN TIME PARTIAL (test code = PTT) 46.4 seconds 23.0-37. 0 H IS PATIENT ON ANTICOAGULANTS? YLIST ANTICOAGULANTS HEPARIN- XR SHOULDER 2 + V [id number] 15:38:00 FAX: Bing Godoy MD [phone] Teller: St: [facility] FAX: Gretta Magallanes [phone] Name: GRETTA BYDR [facility] : 1935 Age/S: 84/M [address] [facility] Unit #: [id number] Loc: [place] [address] Phys: Gretta Rodarte MD Acct: [id number] Dis Date: Status: ADM IN PHONE #: [phone] Exam Date: 01/23/2020 1518 FAX #: [phone] Reason: RIGHT SHOULDER PAIN EXAMS: CPT CODE: [id number] XR SHOULDER 2 + V RT [id number] REASON FOR EXAM: RIGHT SHOULDER PAIN EXAM ORDER DATE: 01/23/2020 12:00 AM Ordering: Gretta Justice MD Attending:Gretta Justice MD Location:[facility] PROCEDURE: - XR SHOULDER 2 + V RT FINDINGS: 3 views of the right shoulder were obtained. The osseous structures are unremarkable in size and shape. Moderate degenerative changes of the right acromioclavicular joint. Calcific tendinopathy of the right supraspinatus. There is normal alignment of the humeral head. No evidence of fracture. 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 [id number] chronic degene rative changes. No acute abnormalities. at 1538 Reported and signed by: Corazon Ortiz M.D. CC: Bing Romero; Gretta Rodarte Technologist: Juan Massey, RT(R; Ratna Restrepo RT(R ) Trnscrd Date/Time/By: 01/23/2020 (1538) : By: [email or web address] Orig Mary nt D/T: S: 01/23/2020 (1734) PAGE 1 Signed Report URINALYSIS [id number] 14:56:00* Test Item Value Reference Range Interpretation Comments UA COLOR (test code = COLU) Light-Yellow YELLOW UA APPEARANCE (test code = APPU) CLEAR CLEAR UA GLUCOSE DIPSTICK (test code = DGLUU) NEGATIVE mg/dL NEGATIVE UA BILIRUBIN DIPSTICK (test code = BILU) NEGATIVE mg/dL NEGATIVE UA KETONE DIPSTICK (test code = KETU) NEGATIVE mg/dL NEGATIVE UA SPECIFIC GRAVITY (test code = SGU) 1.012 1.001-1.035 UA BLOOD DIPSTICK (test code = DAMIAN) 0.03 mg/dL (Trace) mg/dL NEGATI VE A UA PH DIPSTICK (test code = HUBERT) 5.0 5.0-8.0 UA PROTEIN DIPSTICK (test code = PROU) NEGATIVE mg/dL NEGATIVE UA UROBILINIOGEN DIPSTICK (test code = URO) Normal mg/dL NEGATIVE UA NITRITE DIPSTICK (test code = MUSTAPHA) NEGATIVE NEGATIVE UA LEUKOCYTE ESTERASE W REFLEX (test code = LEUUR) NEGATIVE Derrick/uL NEGATIVE UA WBC (test code = WBCU) 0-5 per HPF 0-5 UA RBC (test code = RBCU) 0-2 #/HPF 0-5 UA EPITHELIAL CELLS (test code = EPIU) Rare (0-1/hpf) per HPF FEW UA BACTERIA (test code = BACU) NONE SEEN #/HPF NONE UA MUCUS (test code = MUCU) FEW #/LPF FEW Urine Source? Clean CatchTHROMBOPLASTIN TIME [id number] 09:51:00* Test Item Value Reference Range Interpretation Comments THROMBOPLASTIN TIME PARTIAL (test code = PTT) 56.5 seconds 23.0-37. 0 H IS PATIENT ON ANTICOAGULANTS? YLIST ANTICOAGULANTS HEPARINBASIC METABOLIC [id number] 06:24:00* Test Item Value Reference Range Interpretation Comments SODIUM (test code = NA) 134 mmol/L 136-145 L POTASSIUM (test code = K) 4.1 mmol/L 3.5-5.1 N CHLORIDE (test code = CL) 101.0 mmol/L 98-107 N CARBON DIOXIDE (test code = CO2) 25.0 mmol/L 21-32 N ANION GAP (test code = GAP) 12.1 10-20 N GLUCOSE (test code = GLU) 80 mg/dL 74-106 N BLOOD UREA NITROGEN (test code = BUN) 23 mg/dL 7-18 H GLOMERULAR FILTRATION RATE (test code = GFR) 34 mL/min >=60 Estimated GFR by using Modified MDRD formula.Chronic kidney disease is defined as either kidney damageor GFR <60 mL/min/1.73 m2 for >3 months. CREATININE (test code = CREAT) 1.90 mg/dL 0.7-1.3 H BUN/CREATININE RATIO (test code = BUN/CREA) 11.9 10-20 N CALCIUM (test code = CA) 8.9 mg/dL 8.5-10.1 N BASIC METABOLIC [id number] 06:13:00* Test Item Value Reference Range Interpretation Comments SODIUM (test code = NA) 134 mmol/L 136-145 L POTASSIUM (test code = K) 4.1 mmol/L 3.5-5.1 N CHLORIDE (test code = CL) 101.0 mmol/L 98-107 N CARBON DIOXIDE (test code = CO2) mmol/L 21-32 ANION GAP (test code = GAP) 10-20 GLUCOSE (test code = GLU) mg/dL 74-106 BLOOD UREA NITROGEN (test code = BUN) mg/dL 7-18 GLOMERULAR FILTRATION RATE (test code = GFR) mL/min >=60 CREATININE (test code = CREAT) mg/dL 0.7-1.3 BUN/CREATININE RATIO (test code = BUN/CREA) 10-20 CALCIUM (test code = CA) mg/dL 8.5-10.1 CBC W/AUTO [id number] 05:49:00* Test Item Value Reference Range Interpretation Comments WHITE BLOOD CELL (test code = WBC) 6.0 K/mm3 4.5-12.5 N RED BLOOD CELL (test code = RBC) 4.25 mill/mm3 4.0-5.8 N HEMOGLOBIN (test code = HGB) 12.5 gram/dL 13.0-17.5 L HEMATOCRIT (test code = HCT) 39.3 % 42.0-52.0 L MEAN CELL VOLUME (test code = MCV) 92.5 fL 80-98 N MEAN CELL HGB (test code = MCH) 29.4 picogram 27.0-33.0 N MEAN CELL HGB CONCETRATION (test code = MCHC) 31.8 gram/dL 33.0-36. 0 L RED CELL DISTRIBUTION WIDTH (test code = RDW) 13.2 % 11.6-16. 2 N RED CELL DISTRIBUTION WIDTH SD (test code = RDW-SD) 44.9 fL 37 .0-51.0 N PLATELET COUNT (test code = PLT) 109 K/mm3 150-450 L MEAN PLATELET VOLUME (test code = MPV) 12.7 fL 6.7-11.0 H NEUTROPHIL % (test code = NT%) 73.6 % 39.0-69.0 H IMMATURE GRANULOCYTE % (test code = IG%) 0.3 % 0.0-5.0 N LYMPHOCYTE % (test code = LY%) 11.3 % 25.0-55.0 L MONOCYTE % (test code = MO%) 12.9 % 0.0-10.0 H EOSINOPHIL % (test code = EO%) 1.7 % 0.0-5.0 N BASOPHIL % (test code = BA%) 0.2 % 0.0-1.0 N NUCLEATED RBC % (test code = NRBC%) 0.0 % 0-0 N NEUTROPHIL # (test code = NT#) 4.38 K/mm3 1.8-7.7 N IMMATURE GRANULOCYTE # (test code = IG#) 0.02 x10 3/uL 0-0.03 N LYMPHOCYTE # (test code = LY#) 0.67 K/mm3 1.0-5.0 L MONOCYTE # (test code = MO#) 0.77 K/mm3 0-0.8 N EOSINOPHIL # (test code = EO#) 0.10 K/mm3 0.0-0.5 N BASOPHIL # (test code = BA#) 0.01 K/mm3 0.0-0.2 N NUCLEATED RBC # (test code = NRBC#) 0.00 K/mm3 0.0-0.1 N MANUAL DIFF REQUIRED (test code = MDIFF) NO THROMBOPLASTIN TIME [id number] 03:29:00* Test Item Value Reference Range Interpretation Comments THROMBOPLASTIN TIME PARTIAL (test code = PTT) 63.9 seconds 23.0-37. 0 H IS PATIENT ON ANTICOAGULANTS? YLIST ANTICOAGULANTS HEPARINCOMMENTS TO PHLEBO TOMIST: DRAW FROM RIGHT ARMTHROMBOPLASTIN TIME [id number] 18:24:00* Test Item Value Reference Range Interpretation Comments THROMBOPLASTIN TIME PARTIAL (test code = PTT) 34.6 seconds 23.0-37. 0 N IS PATIENT ON ANTICOAGULANTS? YLIST ANTICOAGULANTS HEPARINCOMMENTS TO PHLEBO TOMIST: DRAW FROM RIGHT HANDTHROMBOPLASTIN TIME [id number] 13:45:00* Test Item Value Reference Range Interpretation Comments THROMBOPLASTIN TIME PARTIAL (test code = PTT) 56.1 seconds 23.0-37. 0 H IS PATIENT ON ANTICOAGULANTS? YLIST ANTICOAGULANTS HEPARINCOMMENTS TO PHLEBO TOMIST: DRAW FROM RIGHT ARMBASIC METABOLIC [id number] 07:20:00* Test Item Value Reference Range Interpretation Comments SODIUM (test code = NA) 138 mmol/L 136-145 N POTASSIUM (test code = K) 4.8 mmol/L 3.5-5.1 N CHLORIDE (test code = CL) 103.0 mmol/L 98-107 N CARBON DIOXIDE (test code = CO2) 27.0 mmol/L 21-32 N ANION GAP (test code = GAP) 12.8 10-20 N GLUCOSE (test code = GLU) 87 mg/dL 74-106 N BLOOD UREA NITROGEN (test code = BUN) 20 mg/dL 7-18 H GLOMERULAR FILTRATION RATE (test code = GFR) 34 mL/min >=60 Estimated GFR by using Modified MDRD formula.Chronic kidney disease is defined as either kidney damageor GFR <60 mL/min/1.73 m2 for >3 months. CREATININE (test code = CREAT) 1.90 mg/dL 0.7-1.3 H BUN/CREATININE RATIO (test code = BUN/CREA) 10.6 10-20 N CALCIUM (test code = CA) 8.2 mg/dL 8.5-10.1 L BASIC METABOLIC [id number] 07:01:00* Test Item Value Reference Range Interpretation Comments SODIUM (test code = NA) 138 mmol/L 136-145 N POTASSIUM (test code = K) 4.8 mmol/L 3.5-5.1 N CHLORIDE (test code = CL) 103.0 mmol/L 98-107 N CARBON DIOXIDE (test code = CO2) mmol/L 21-32 ANION GAP (test code = GAP) 10-20 GLUCOSE (test code = GLU) mg/dL 74-106 BLOOD UREA NITROGEN (test code = BUN) mg/dL 7-18 GLOMERULAR FILTRATION RATE (test code = GFR) mL/min >=60 CREATININE (test code = CREAT) mg/dL 0.7-1.3 BUN/CREATININE RATIO (test code = BUN/CREA) 10-20 CALCIUM (test code = CA) mg/dL 8.5-10.1 B-TYPE NATRIURETIC [id number] 06:48:00* Test Item Value Reference Range Interpretation Comments B-TYPE NATRIURETIC PEPTIDE (test code = BNP) 649.00 pgram/mL 0-100 H THROMBOPLASTIN TIME [id number] 06:05:00* Test Item Value Reference Range Interpretation Comments THROMBOPLASTIN TIME PARTIAL (test code = PTT) 56.5 seconds 23.0-37. 0 H IS PATIENT ON ANTICOAGULANTS? YLIST ANTICOAGULANTS HEPARINCBC W/AUTO DIFF 2020-01-22 05:55:00* Test Item Value Reference Range Interpretation Comments WHITE BLOOD CELL (test code = WBC) 3.9 K/mm3 4.5-12.5 L RED BLOOD CELL (test code = RBC) 3.93 mill/mm3 4.0-5.8 L HEMOGLOBIN (test code = HGB) 11.6 gram/dL 13.0-17.5 L HEMATOCRIT (test code = HCT) 36.7 % 42.0-52.0 L MEAN CELL VOLUME (test code = MCV) 93.4 fL 80-98 N MEAN CELL HGB (test code = MCH) 29.5 picogram 27.0-33.0 N MEAN CELL HGB CONCETRATION (test code = MCHC) 31.6 gram/dL 33.0-36. 0 L RED CELL DISTRIBUTION WIDTH (test code = RDW) 13.2 % 11.6-16. 2 N RED CELL DISTRIBUTION WIDTH SD (test code = RDW-SD) 45.0 fL 37 .0-51.0 N PLATELET COUNT (test code = PLT) 114 K/mm3 150-450 L MEAN PLATELET VOLUME (test code = MPV) 12.5 fL 6.7-11.0 H NEUTROPHIL % (test code = NT%) 64.4 % 39.0-69.0 N IMMATURE GRANULOCYTE % (test code = IG%) 0.5 % 0.0-5.0 N LYMPHOCYTE % (test code = LY%) 16.0 % 25.0-55.0 L MONOCYTE % (test code = MO%) 16.2 % 0.0-10.0 H EOSINOPHIL % (test code = EO%) 2.6 % 0.0-5.0 N BASOPHIL % (test code = BA%) 0.3 % 0.0-1.0 N NUCLEATED RBC % (test code = NRBC%) 0.0 % 0-0 N NEUTROPHIL # (test code = NT#) 2.50 K/mm3 1.8-7.7 N IMMATURE GRANULOCYTE # (test code = IG#) 0.02 x10 3/uL 0-0.03 N LYMPHOCYTE # (test code = LY#) 0.62 K/mm3 1.0-5.0 L MONOCYTE # (test code = MO#) 0.63 K/mm3 0-0.8 N EOSINOPHIL # (test code = EO#) 0.10 K/mm3 0.0-0.5 N BASOPHIL # (test code = BA#) 0.01 K/mm3 0.0-0.2 N NUCLEATED RBC # (test code = NRBC#) 0.00 K/mm3 0.0-0.1 N MANUAL DIFF REQUIRED (test code = MDIFF) NO THROMBOPLASTIN TIME [id number] 22:43:00* Test Item Value Reference Range Interpretation Comments THROMBOPLASTIN TIME PARTIAL (test code = PTT) 53.7 seconds 23.0-37. 0 H IS PATIENT ON ANTICOAGULANTS? YLIST ANTICOAGULANTS HEPARINCOMMENTS TO PHLEBO TOMIST: DRAW FROM RIGHT ARMTHROMBOPLASTIN TIME [id number] 14:52:00* Test Item Value Reference Range Interpretation Comments THROMBOPLASTIN TIME PARTIAL (test code = PTT) 44.6 seconds 23.0-37. 0 H IS PATIENT ON ANTICOAGULANTS? YLIST ANTICOAGULANTS HEPARINCOMMENTS TO PHLEBO TOMIST: DRAW FROM RIGHT ARM- PULM VENT PERF [id number] 11:20:00 FAX: Bing Godoy MD [phone] Teller: St: ADM FAX: Sumeet Dailey FAX: [facility] Name: GRETTA BYRD [facility] : 1935 Age/S: 84/M [address] [facility] it #: [id number] Loc: [place] [address] Phys: Sumeet España MD Acct: [id number] Dis Date: Status: ADM IN ONE #: [id number] Exam Date: 01/21/2020 1115 FAX #: [phone] Reason: SOB EXAMS: CPT CODE: [id number] PU LM VENT PERF IMAG 24065 HISTORY: Short ness of breath. COMPARISON: Chest x-ray from January 19, 2020. Location: SI. VQ scan: Ventilation study is not available due to shortness of breath. 5.7 mCi of technetium 99m MAA administered fo r the perfusion exam. No large segmental or subsegmental def ects. These findings suggest low probability for pulmonary embolism. IMPRESSION: Limited examination as ventilation stud y is not available. FINDINGS suggest low probability for pulmonary embol ism. at 112 0 Reported and signed by: Jason Dalal M.D. CC: Bing Romero; Sumeet España MD; Gretta Rodarte Technologis t: YUMIKO COVARRUBIAS Trnscrd Date/Time/By: 01/21/2020 (1120) : By: [email or web address] Orig Print D/T: S: 01/21/2020 (4393) PAGE 1 Signed Report COMPREHENSIVE METABOLIC [id number] 10:03:00* Test Item Value Reference Range Interpretation Comments SODIUM (test code = NA) 137 mmol/L 136-145 N POTASSIUM (test code = K) 4.7 mmol/L 3.5-5.1 N CHLORIDE (test code = CL) 104.0 mmol/L 98-107 N CARBON DIOXIDE (test code = CO2) 30.0 mmol/L 21-32 N ANION GAP (test code = GAP) 7.7 10-20 L GLUCOSE (test code = GLU) 82 mg/dL 74-106 N BLOOD UREA NITROGEN (test code = BUN) 18 mg/dL 7-18 N GLOMERULAR FILTRATION RATE (test code = GFR) 36 mL/min >=60 Estimated GFR by using Modified MDRD formula.Chronic kidney disease is defined as either kidney damageor GFR <60 mL/min/1.73 m2 for >3 months. CREATININE (test code = CREAT) 1.80 mg/dL 0.7-1.3 H BUN/CREATININE RATIO (test code = BUN/CREA) 10.1 10-20 N TOTAL PROTEIN (test code = PROT) 6.4 gram/dL 6.4-8.2 N ALBUMIN (test code = ALB) 2.7 g/dL 3.4-5.0 L GLOBULIN (test code = GLOB) 3.7 gram/dL 2.7-4.2 N ALBUMIN/GLOBULIN RATIO (test code = A/G) 0.7 0.75-1.50 L CALCIUM (test code = CA) 8.5 mg/dL 8.5-10.1 N BILIRUBIN TOTAL (test code = BILT) 1.00 mg/dL 0.0-1.0 N SGOT/AST (test code = AST) 15 IUnit/L 15-37 N SGPT/ALT (test code = ALT) 13 IUnit/L 12-78 N ALKALINE PHOSPHATASE TOTAL (test code = ALKP) 91 IUnit/L 45-117 N Note change in reference range due to change in reagent. LIPID PROFILE (CORONARY RISK)2020-01-21 10:03:00* Test Item Value Reference Range Interpretation Comments TRIGLYCERIDES (test code = TRIG) 68 mg/dL 20-150 N CHOLESTEROL (test code = CHOL) 86 mg/dL 0-200 N CHOLESTEROL/HDL RATIO (test code = CHOLHDL) 3.0 RATIO 0-4.9 N RISK ASSOCIATED WITH CHOL/HDL RATIOS: Risk Male Female1/2 AVERAGE 3.43 3.27AVERAGE 4.97 4.442X AVERAGE 9.55 7.053X AVERAGE 23.39 11.04 REFERENCE VALUE IS RELATED TO RISK LEVELS ASRECOMMENDED BY THE TSELLA. HEART, LUNG, AND BLOOD INST. HDL CHOLESTEROL (test code = HDL) 25 mg/dL 40-60 L LIPOPROTEIN LDL (test code = LDL) 55 mg/dL 100-129 L Reference Interval: mg/dL mmol/L Optimal <100 <2.6Near/above optimal 100-129 2.6- 3.3Borderline High 130-159 3.4-4.1High 160-189 4.1-4.9Very High >=190 >=4.9========= This LDL result is a direct measurement.========= [id number] 10:03:00* Test Item Value Reference Range Interpretation Comments MAGNESIUM (test code = MAG) 2.5 mg/dL 1.8-2.4 H THYROID PROFILE [id number] 10:03:00* Test Item Value Reference Range Interpretation Comments T3 UPTAKE (test code = T3UP) 37.0 % 30.0-40.0 N T4 (THYROXINE) (test code = T4) 12.1 ug/dL 4.5-13.9 N T7 (FREE THYROXINE INDEX) (test code = T7) 4.47 FTI 1.3-5.1 N THYROID STIMULATING HORMONE (test code = TSH) 1.020 uIU/mL 0.36-3.7 4 N TSH REFERENCE RANGES: EUTHYROID: 0.35 - 4.3 mIU/mL HYPO : > 5.5 mIU/mL HYPER : < 0.35 mIU/mL [id number] 10:03:00* Test Item Value Reference Range Interpretation Comments TROPONIN-I (test code = TROPI) <0.015 ng/mL 0-0.045 N B-TYPE NATRIURETIC [id number] 09:51:00* Test Item Value Reference Range Interpretation Comments B-TYPE NATRIURETIC PEPTIDE (test code = BNP) 826.66 pgram/mL 0-100 H COMPREHENSIVE METABOLIC [id number] 09:50:00* Test Item Value Reference Range Interpretation Comments SODIUM (test code = NA) 137 mmol/L 136-145 N POTASSIUM (test code = K) 4.7 mmol/L 3.5-5.1 N CHLORIDE (test code = CL) 104.0 mmol/L 98-107 N CARBON DIOXIDE (test code = CO2) mmol/L 21-32 ANION GAP (test code = GAP) 10-20 GLUCOSE (test code = GLU) mg/dL 74-106 BLOOD UREA NITROGEN (test code = BUN) mg/dL 7-18 GLOMERULAR FILTRATION RATE (test code = GFR) mL/min >=60 CREATININE (test code = CREAT) mg/dL 0.7-1.3 BUN/CREATININE RATIO (test code = BUN/CREA) 10-20 TOTAL PROTEIN (test code = PROT) gram/dL 6.4-8.2 ALBUMIN (test code = ALB) g/dL 3.4-5.0 GLOBULIN (test code = GLOB) gram/dL 2.7-4.2 ALBUMIN/GLOBULIN RATIO (test code = A/G) 0.75-1.50 CALCIUM (test code = CA) mg/dL 8.5-10.1 BILIRUBIN TOTAL (test code = BILT) mg/dL 0.0-1.0 SGOT/AST (test code = AST) IUnit/L 15-37 SGPT/ALT (test code = ALT) IUnit/L 12-78 ALKALINE PHOSPHATASE TOTAL (test code = ALKP) IUnit/L 45-117 LIPID PROFILE (CORONARY RISK)2020-01-21 09:50:00* Test Item Value Reference Range Interpretation Comments TRIGLYCERIDES (test code = TRIG) mg/dL 20-150 CHOLESTEROL (test code = CHOL) mg/dL 0-200 CHOLESTEROL/HDL RATIO (test code = CHOLHDL) RATIO 0-4.9 HDL CHOLESTEROL (test code = HDL) mg/dL 40-60 LIPOPROTEIN LDL (test code = LDL) mg/dL 100-129 [id number] 09:50:00* Test Item Value Reference Range Interpretation Comments MAGNESIUM (test code = MAG) mg/dL 1.8-2.4 THYROID PROFILE [id number] 09:50:00* Test Item Value Reference Range Interpretation Comments T3 UPTAKE (test code = T3UP) % 30.0-40.0 T4 (THYROXINE) (test code = T4) ug/dL 4.5-13.9 T7 (FREE THYROXINE INDEX) (test code = T7) FTI 1.3-5.1 THYROID STIMULATING HORMONE (test code = TSH) uIU/mL 0.36-3.7 4 [id number] 09:50:00* Test Item Value Reference Range Interpretation Comments TROPONIN-I (test code = TROPI) ng/mL 0-0.045 [id number] 09:47:00* Test Item Value Reference Range Interpretation Comments GLYCOSYLATED HEMOGLOBIN (HA1C) (test code = GLYHGB) 5.7 % HbA1 SUGGESTED DIAGNOSIS: HbA1C (%) Diabetic >6.4Prediabetes 5.7 - 6.4Normal <5.7 ESTIMATED AVERAGE GLUCOSE (test code = EAG) 117 MG/DL THROMBOPLASTIN TIME [id number] 09:33:00* Test Item Value Reference Range Interpretation Comments THROMBOPLASTIN TIME PARTIAL (test code = PTT) 56.9 seconds 23.0-37. 0 H IS PATIENT ON ANTICOAGULANTS? YLIST ANTICOAGULANTS HEPARINCOMMENTS TO PHLEBO TOMIST: DRAW ON RIGHT ARM CBC W/AUTO [id number] 09:22:00* Test Item Value Reference Range Interpretation Comments WHITE BLOOD CELL (test code = WBC) 4.1 K/mm3 4.5-12.5 L RED BLOOD CELL (test code = RBC) 4.13 mill/mm3 4.0-5.8 N HEMOGLOBIN (test code = HGB) 12.2 gram/dL 13.0-17.5 L HEMATOCRIT (test code = HCT) 38.3 % 42.0-52.0 L MEAN CELL VOLUME (test code = MCV) 92.7 fL 80-98 N MEAN CELL HGB (test code = MCH) 29.5 picogram 27.0-33.0 N MEAN CELL HGB CONCETRATION (test code = MCHC) 31.9 gram/dL 33.0-36. 0 L RED CELL DISTRIBUTION WIDTH (test code = RDW) 13.2 % 11.6-16. 2 N RED CELL DISTRIBUTION WIDTH SD (test code = RDW-SD) 45.1 fL 37 .0-51.0 N PLATELET COUNT (test code = PLT) 113 K/mm3 150-450 L MEAN PLATELET VOLUME (test code = MPV) 12.5 fL 6.7-11.0 H NEUTROPHIL % (test code = NT%) 67.5 % 39.0-69.0 N IMMATURE GRANULOCYTE % (test code = IG%) 0.2 % 0.0-5.0 N LYMPHOCYTE % (test code = LY%) 13.5 % 25.0-55.0 L MONOCYTE % (test code = MO%) 16.4 % 0.0-10.0 H EOSINOPHIL % (test code = EO%) 2.2 % 0.0-5.0 N BASOPHIL % (test code = BA%) 0.2 % 0.0-1.0 N NUCLEATED RBC % (test code = NRBC%) 0.0 % 0-0 N NEUTROPHIL # (test code = NT#) 2.79 K/mm3 1.8-7.7 N IMMATURE GRANULOCYTE # (test code = IG#) 0.01 x10 3/uL 0-0.03 N LYMPHOCYTE # (test code = LY#) 0.56 K/mm3 1.0-5.0 L MONOCYTE # (test code = MO#) 0.68 K/mm3 0-0.8 N EOSINOPHIL # (test code = EO#) 0.09 K/mm3 0.0-0.5 N BASOPHIL # (test code = BA#) 0.01 K/mm3 0.0-0.2 N NUCLEATED RBC # (test code = NRBC#) 0.00 K/mm3 0.0-0.1 N THROMBOPLASTIN TIME [id number] 03:30:00* Test Item Value Reference Range Interpretation Comments THROMBOPLASTIN TIME PARTIAL (test code = PTT) 56.4 seconds 23.0-37. 0 H IS PATIENT ON ANTICOAGULANTS? YLIST ANTICOAGULANTS HEPARINCOMMENTS TO PHLEBO TOMIST: DRAW FROM RIGHT ARM THROMBOPLASTIN TIME [id number] 21:14:00* Test Item Value Reference Range Interpretation Comments THROMBOPLASTIN TIME PARTIAL (test code = PTT) 59.9 seconds 23.0-37. 0 H IS PATIENT ON ANTICOAGULANTS? YLIST ANTICOAGULANTS HEPARINCOMMENTS TO PHLEBO TOMIST: DRAW ON RIGHT HAND BASIC METABOLIC [id number] 13:02:00* Test Item Value Reference Range Interpretation Comments SODIUM (test code = NA) 137 mmol/L 136-145 N POTASSIUM (test code = K) 4.4 mmol/L 3.5-5.1 N CHLORIDE (test code = CL) 105.0 mmol/L 98-107 N CARBON DIOXIDE (test code = CO2) 28.0 mmol/L 21-32 N ANION GAP (test code = GAP) 8.4 10-20 L GLUCOSE (test code = GLU) 121 mg/dL 74-106 H BLOOD UREA NITROGEN (test code = BUN) 19 mg/dL 7-18 H GLOMERULAR FILTRATION RATE (test code = GFR) 36 mL/min >=60 Estimated GFR by using Modified MDRD formula.Chronic kidney disease is defined as either kidney damageor GFR <60 mL/min/1.73 m2 for >3 months. CREATININE (test code = CREAT) 1.80 mg/dL 0.7-1.3 H BUN/CREATININE RATIO (test code = BUN/CREA) 10.3 10-20 N CALCIUM (test code = CA) 8.6 mg/dL 8.5-10.1 N [id number] 13:02:00* Test Item Value Reference Range Interpretation Comments MAGNESIUM (test code = MAG) 2.6 mg/dL 1.8-2.4 H [id number] 13:01:00* Test Item Value Reference Range Interpretation Comments D-DIMER (test code = DDIMER) 1583.00 ng/mLFEU 0-500 HH RESULT VERIFIED BY REPEAT ANALYSISCritical results verified and read back by Nurse? YClinical Cut-off value for D-Dimer is 500 ng/mL FEU. Comment: The [employer] D-Dimer assay is intended for use asan aid in the diagnosis of venous thromboembolism (VTE)[deep vein thrombosis (DVT) or pulmonary embolism (PE)].The measurement of D-Dimer should not be used as an aid inthe diagnosis of VTE, in patient with: - Therapeutic dose anticoagulant therapy for >24 hours -Fibrinolytic therapy within previous 7 days -Trauma or surgery within previous 4 weeks - Disseminated malignancies -Aortic aneurysm -Sepsis, severe infections, pneumonia, severe skin infections -Liver cirrhosis - B-TYPE NATRIURETIC [id number] 12:52:00* Test Item Value Reference Range Interpretation Comments B-TYPE NATRIURETIC PEPTIDE (test code = BNP) 999.21 pgram/mL 0-100 H BASIC METABOLIC [id number] 12:51:00* Test Item Value Reference Range Interpretation Comments SODIUM (test code = NA) 137 mmol/L 136-145 N POTASSIUM (test code = K) 4.4 mmol/L 3.5-5.1 N CHLORIDE (test code = CL) 105.0 mmol/L 98-107 N CARBON DIOXIDE (test code = CO2) mmol/L 21-32 ANION GAP (test code = GAP) 10-20 GLUCOSE (test code = GLU) mg/dL 74-106 BLOOD UREA NITROGEN (test code = BUN) mg/dL 7-18 GLOMERULAR FILTRATION RATE (test code = GFR) mL/min >=60 CREATININE (test code = CREAT) mg/dL 0.7-1.3 BUN/CREATININE RATIO (test code = BUN/CREA) 10-20 CALCIUM (test code = CA) mg/dL 8.5-10.1 [id number] 12:51:00* Test Item Value Reference Range Interpretation Comments MAGNESIUM (test code = MAG) mg/dL 1.8-2.4 THROMBOPLASTIN TIME [id number] 12:46:00* Test Item Value Reference Range Interpretation Comments THROMBOPLASTIN TIME PARTIAL (test code = PTT) 31.1 seconds 23.0-37. 0 N IS PATIENT ON ANTICOAGULANTS? [id number] 12:29:00* Test Item Value Reference Range Interpretation Comments HEMATOCRIT (test code = HCT) 38.5 % 42.0-52.0 L PLATELET [id number] 12:29:00* Test Item Value Reference Range Interpretation Comments PLATELET COUNT (test code = PLT) 129 K/mm3 150-450 L [id number] 20:57:00* Test Item Value Reference Range Interpretation Comments TROPONIN-I (test code = TROPI) <0.015 ng/mL 0-0.045 N COMMENTS TO MACHINE DESIGN TEACHER: COLLECT 3 HOURS AFTER PREVIOUS [id number] 17:19:00* Test Item Value Reference Range Interpretation Comments TROPONIN-I (test code = TROPI) <0.015 ng/mL 0-0.045 N COMMENTS TO MACHINE DESIGN TEACHER: COLLECT 3 HOURS AFTER PREVIOUS SAMPLEURINALYSIS [id number] 13:54:00* Test Item Value Reference Range Interpretation Comments UA COLOR (test code = COLU) YELLOW YELLOW UA APPEARANCE (test code = APPU) CLEAR CLEAR UA GLUCOSE DIPSTICK (test code = DGLUU) NEGATIVE mg/dL NEGATIVE UA BILIRUBIN DIPSTICK (test code = BILU) NEGATIVE mg/dL NEGATIVE UA KETONE DIPSTICK (test code = KETU) NEGATIVE mg/dL NEGATIVE UA SPECIFIC GRAVITY (test code = SGU) 1.012 1.001-1.035 UA BLOOD DIPSTICK (test code = DAMIAN) Negative mg/dL NEGATIVE UA PH DIPSTICK (test code = HUBERT) 5.0 5.0-8.0 UA PROTEIN DIPSTICK (test code = PROU) NEGATIVE mg/dL NEGATIVE UA UROBILINIOGEN DIPSTICK (test code = URO) Normal mg/dL NEGATIVE UA NITRITE DIPSTICK (test code = MUSTAPHA) NEGATIVE NEGATIVE UA LEUKOCYTE ESTERASE W REFLEX (test code = LEUUR) NEGATIVE Derrick/uL NEGATIVE UA WBC (test code = WBCU) 0-5 per HPF 0-5 UA RBC (test code = RBCU) 0-2 #/HPF 0-5 UA EPITHELIAL CELLS (test code = EPIU) Few (2-5/hpf) per HPF FEW UA BACTERIA (test code = BACU) NONE SEEN #/HPF NONE UA HYALINE CAST (test code = HYALU) 6-10 #/LPF 0-5 A UA MUCUS (test code = MUCU) FEW #/LPF FEW Urine Source? Clean CatchTSH REFLEX TO [id number] 12:27:00* Test Item Value Reference Range Interpretation Comments TSH REFLEX TO FT4 (test code = TSHREFLEX) 0.8 0.4-5.5 N B-TYPE NATRIURETIC [id number] 12:23:00* Test Item Value Reference Range Interpretation Comments B-TYPE NATRIURETIC PEPTIDE (test code = BNP) 683.23 pgram/mL 0-100 H BASIC METABOLIC [id number] 12:18:00* Test Item Value Reference Range Interpretation Comments SODIUM (test code = NA) 136 mmol/L 136-145 N POTASSIUM (test code = K) 4.4 mmol/L 3.5-5.1 N CHLORIDE (test code = CL) 102.0 mmol/L 98-107 N CARBON DIOXIDE (test code = CO2) 28.0 mmol/L 21-32 N ANION GAP (test code = GAP) 10.4 10-20 N GLUCOSE (test code = GLU) 87 mg/dL 74-106 N BLOOD UREA NITROGEN (test code = BUN) 22 mg/dL 7-18 H GLOMERULAR FILTRATION RATE (test code = GFR) 30 mL/min >=60 Estimated GFR by using Modified MDRD formula.Chronic kidney disease is defined as either kidney damageor GFR <60 mL/min/1.73 m2 for >3 months. CREATININE (test code = CREAT) 2.10 mg/dL 0.7-1.3 H BUN/CREATININE RATIO (test code = BUN/CREA) 10.4 10-20 N CALCIUM (test code = CA) 9.0 mg/dL 8.5-10.1 N [id number] 12:18:00* Test Item Value Reference Range Interpretation Comments TROPONIN-I (test code = TROPI) <0.015 ng/mL 0-0.045 N HEPATIC FUNCTION [id number] 12:18:00* Test Item Value Reference Range Interpretation Comments TOTAL PROTEIN (test code = PROT) 7.8 gram/dL 6.4-8.2 N ALBUMIN (test code = ALB) 3.3 g/dL 3.4-5.0 L GLOBULIN (test code = GLOB) 4.5 gram/dL 2.7-4.2 H ALBUMIN/GLOBULIN RATIO (test code = A/G) 0.7 0.75-1.50 L BILIRUBIN TOTAL (test code = BILT) 1.00 mg/dL 0.0-1.0 N BILIRUBIN DIRECT (test code = BILD) 0.37 mg/dL 0.0-0.20 H SGOT/AST (test code = AST) 21 IUnit/L 15-37 N SGPT/ALT (test code = ALT) 19 IUnit/L 12-78 N ALKALINE PHOSPHATASE TOTAL (test code = ALKP) 117 IUnit/L 45-117 N Note change in reference range due to change in reagent. [id number] 12:18:00* Test Item Value Reference Range Interpretation Comments LIPASE (test code = LIP) 156 U/L 73.0-393.0 N PROTHROMBIN [id number] 12:18:00* Test Item Value Reference Range Interpretation Comments PROTHROMBIN TIME PATIENT (test code = PTP) 14.2 seconds 9.0-14.0 H INTERNATIONAL NORMAL RATIO (test code = INR) 1.2 0.8-1.2 N The therapeutic range for oral anticoagulant therapy formost indications is an international normalized ratio (INR)of between 2.0 and 3.0. The recommended therapeutic INRrange for various clinical situations is listed below: Clinical Situation INR range Pulmonary e mbolism treatment (2.0-3.0)Venous thrombosis treatmentVenous thrombosis prophylaxis (high risk surgery)Prevention of systemic embolism from: Acute myocardial infarction Valvular heart disease Atrial fibrillation Mechanical prosthetic heart valves (2.5-3.5) IS PATIENT ON ANTICOAGULANTS? NTHROMBOPLASTIN TIME [id number] 12:18:00* Test Item Value Reference Range Interpretation Comments THROMBOPLASTIN TIME PARTIAL (test code = PTT) 31.2 seconds 23.0-37. 0 N IS PATIENT ON ANTICOAGULANTS? NLACTIC [id number] 12:17:00* Test Item Value Reference Range Interpretation Comments LACTIC ACID (test code = LACT) 1.2 mmol/L 0.4-1.9 N BASIC METABOLIC [id number] 12:09:00* Test Item Value Reference Range Interpretation Comments SODIUM (test code = NA) 136 mmol/L 136-145 N POTASSIUM (test code = K) 4.4 mmol/L 3.5-5.1 N CHLORIDE (test code = CL) 102.0 mmol/L 98-107 N CARBON DIOXIDE (test code = CO2) mmol/L 21-32 ANION GAP (test code = GAP) 10-20 GLUCOSE (test code = GLU) mg/dL 74-106 BLOOD UREA NITROGEN (test code = BUN) mg/dL 7-18 GLOMERULAR FILTRATION RATE (test code = GFR) mL/min >=60 CREATININE (test code = CREAT) mg/dL 0.7-1.3 BUN/CREATININE RATIO (test code = BUN/CREA) 10-20 CALCIUM (test code = CA) mg/dL 8.5-10.1 [id number] 12:09:00* Test Item Value Reference Range Interpretation Comments TROPONIN-I (test code = TROPI) ng/mL 0-0.045 CBC W/O [id number] 12:06:00* Test Item Value Reference Range Interpretation Comments WHITE BLOOD CELL (test code = WBC) K/mm3 4.5-12.5 RED BLOOD CELL (test code = RBC) mill/mm3 4.0-5.8 HEMOGLOBIN (test code = HGB) 13.2 gram/dL 13.0-17.5 N HEMATOCRIT (test code = HCT) % 42.0-52.0 MEAN CELL VOLUME (test code = MCV) fL 80-98 MEAN CELL HGB (test code = MCH) picogram 27.0-33.0 MEAN CELL HGB CONCETRATION (test code = MCHC) gram/dL 33.0-36. 0 RED CELL DISTRIBUTION WIDTH (test code = RDW) % 11.6-16. 2 PLATELET COUNT (test code = PLT) 154 K/mm3 150-450 N MEAN PLATELET VOLUME (test code = MPV) fL 6.7-11.0 CBC W/O [id number] 12:06:00* Test Item Value Reference Range Interpretation Comments WHITE BLOOD CELL (test code = WBC) 5.0 K/mm3 4.5-12.5 N RED BLOOD CELL (test code = RBC) 4.40 mill/mm3 4.0-5.8 N HEMOGLOBIN (test code = HGB) 13.2 gram/dL 13.0-17.5 N HEMATOCRIT (test code = HCT) 40.8 % 42.0-52.0 L MEAN CELL VOLUME (test code = MCV) 92.7 fL 80-98 N MEAN CELL HGB (test code = MCH) 30.0 picogram 27.0-33.0 N MEAN CELL HGB CONCETRATION (test code = MCHC) 32.4 gram/dL 33.0-36. 0 L RED CELL DISTRIBUTION WIDTH (test code = RDW) 13.3 % 11.6-16. 2 N PLATELET COUNT (test code = PLT) 154 K/mm3 150-450 N MEAN PLATELET VOLUME (test code = MPV) 12.7 fL 6.7-11.0 H - XR CHEST 1 [id number] 11:49:00 FAX: Connor Thompson MD Teller: B St: PRE Name: GRETTA MATTSON [facility] : [birth year] Age/S: 84/M Jun Priest yosi Unit #: [id number] Loc: [place] [address] Phys: Connor Thompson MD Acct: [id number] Dis Date: Status: PRE ER PHONE #: [phone] Exam Date: 01/19/2020 1126 FAX #: [phone] Reason: CHEST PAIN EXAMS: CPT CODE: [id number] XR CHEST 1 V [id number] EXAM: Chest x-ray, one view; INFORMATION: Chest pain; IMPRESSION: 1. No evidence of pulmonary infiltrates or other signs of active cardiopulmonary d isease. 2. No significant change compared with a study from August 18, showing fibrotic changes in both lungs and mild cardiomegaly. Location code: [facility] at 1149 Reported and signed by: Hardik Ochoa M.D. CC: Connor Thompson MD Tech nologist: ROE JOYCE(R) Trnscrd Date/Ti me/By: 01/19/2020 (4779) : By: RoxanneGRW Orig Print D/T: S: 01/19/2020 (6205) PAGE 1 Signed Report [QL] [id number] 08:25:00* Test Item Value Reference Range Interpretation Comments MAGNESIUM (test code = MAGNESIUM) 2.1 mg/dl 1.5-2.5 N [facility][QL] PHOSPHATE ( PHOSPHORUS)2020-01-15 08:25:00 * Test Item Value Reference Range Interpretation Comments PHOSPHATE ( PHOSPHORUS) (test code = PHOSPHATE ( PHOSPHO ZEB)) 3.4 mg/dl 2.1-4.3 N [facility][QL] CMP [id number] 08:25:00* Test Item Value Reference Range Interpretation Comments GLUCOSE; Normal (test code = 1547-9) 94 mg/dl 65-99 N Fasting reference interval UREA NITROGEN (BUN) (test code = UREA NITROGEN (BUN)) 23 mg/dl 7-25 N CREATININE (test code = CREATININE) 2.08 mg/dl 0.70-1.11 For patients >49 years of age, the reference limitfor Creatinine is approximately 13% higher for peopleidentified as -Djiboutian. eGFR NON-AFR. NAMIBIAN (test code = eGFR NON-AFR. NAMIBIAN) 28 {ML/MIN/1.7} > OR = 60 eGFR (test code = eGFR ) 33 {ML/MIN/1.7} > OR = 60 BUN/CREATININE RATIO (test code = BUN/CREATININE RATIO) 11 {CALC} 6-22 N SODIUM (test code = SODIUM) 138 mmol/L 135-146 N POTASSIUM (test code = POTASSIUM) 4.4 mmol/L 3.5-5.3 N CHLORIDE (test code = CHLORIDE) 100 mmol/L 98-110 N CARBON DIOXIDE (test code = CARBON DIOXIDE) 30 mmol/L 20-32 N CALCIUM (test code = CALCIUM) 9.1 mg/dl 8.6-10.3 N PROTEIN, TOTAL (test code = PROTEIN, TOTAL) 6.3 g/dl 6.1-8.1 N ALBUMIN (test code = ALBUMIN) 3.5 g/dl 3.6-5.1 GLOBULIN (test code = GLOBULIN) 2.8 {G/DL CALC} 1.9-3.7 N ALBUMIN/GLOBULIN RATIO (test code = ALBUMIN/GLOBULIN RATIO) 1.3 {CALC} 1.0-2.5 N BILIRUBIN, TOTAL; Normal (test code = 82525-8) 1.0 mg/dl 0.2-1.2 N ALKALINE PHOSPHATASE (test code = ALKALINE PHOSPHATASE) 95 u/l 35-144 N AST; Normal (test code = 1916-6) 18 u/l 10-35 N ALT; Normal (test code = 1742-6) 11 u/l 9-46 N [facility][QL] PTH, INTACT (WITHOUT CALCIUM)2020-01-15 08:25:00* Test Item Value Reference Range Interpretation Comments PARATHYROID HORMONE, INTACT (test code = PARATHYROID HORMONE , INTACT) 25 pg/ml 14-64 N Interpretive Guide Intact PTH Calcium -------Normal Parathyroid Normal NormalHypoparathyroidism Low or Low Normal LowHyperparathyroidism Primary Normal or High High Secondary High Normal or Low Tertiary High HighNon- Parathyroid Hypercalcemia Low or Low Normal High [facility][QL] VITAMIN D, 25-HYDROXY, LC/MS/[id number] 08:25:00* Test Item Value Reference Range Interpretation Comments VITAMIN D,25-OH,TOTAL,IA (test code = VITAMIN D,25-OH,TOTAL,IA) 44 ng/ml 30-100 N Vitamin D Status 25-OH Vitamin D : Deficiency: <20 ng/mLInsufficiency: 20 - 29 ng/mLOptimal: > or = 30 ng/mL For 25-OH Vitamin D testing on patients on D2-supplementation and patients for whom quantitation of D2 and D3 fractions is required, the QuestAssureD(TM)25-OH VIT D, (D2,D3), LC/MS/MS is recommended: order code 79026 (patients >2yrs).See Note 1 Note 1 For additional information, please refer to http://education.[employer]/faq/LQE177 (This link is being provided for informational/educational purposes only.) [facility] Bone Density [employer] [id number] 12:30:00MALE BONE DENSITY ASSESSMENT: 01/14/2020CLINICAL DATA: Clinical risk for osteoporosis. /Z13.820 Screening ForOsteoporosisFINDINGS:Bone density evaluation was performed 01/14/2020 on the left distal radiususing a Hologic unit. The BMD average for the exam is 0.615 g/cm2. The T-scoreis -3.80 and the Z-score is -1.50. This matches the World HealthOrganization's criteria for osteoporosis and places the patient at a high riskfor fracture. An additional bone density evaluation was performed 01/14/2020 on the leftfemur neck using a Hologic unit. The BMD average for the exam is 0.663 g/cm2.The T-score is -2.00 and the Z-score is -0.30. This matches the World HealthOrganization's criteria for osteopenia and places the patient at a medium riskfor fracture. An additional bone density evaluation was performed 01/14/2020 on the lefttotal femur area using a Hologic unit. The BMD average for the exam is 0.804 g/cm2. The T-score is -1.50 and the Z-score is -0.30. This matches the WorldHealth Organization's criteria for osteopenia and places the patient at amedium risk for fracture. An additional bone density evaluation was performed 01/14/2020 on the AP L1-E4qtrzbv of spine using a Hologic unit. The BMD average for the exam is 1.154 g/cm2. The T-score is 0.60 and the Z-score is 1.90. This matches the WorldHealth Organization's criteria for normal bone density and places the patientwithin normal limits of fracture risk. IMPRESSION: OSTEOPOROSISPatient is at high risk for fracture. Patient consult w/primary care provideris recommended. This exam was interpreted at [id number] at [facility]. Kathleen Feldman M.D. 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--Read by: Kathleen Perdo MDDictated Date/time: 01/14/20 15:38Electronically Signed by : Kathleen Feldman MD 01/13/2015:38FINAL REPORTUnK[facility][U] XRAY FEMUR 2 VWS RIGHT [id number] 14:08:00Images acquired, not reported on this accession number.[facility] XRAY Chest 2 views [id number] 09:14:00PROCEDURE INFORMATION:Exam: XR Chest, 2 ViewsExam date and time: 11/15/2019 9:15 AMAge: 84 years oldClinical indication: Pre-operative exam; Cardiovascular screening andrespiratory screening exam; Additional info: Coughing/preop examTECHNIQUE:Imaging protocol: XR of the chestViews: 2 views. PA and LateralCOMPARISON:RIBS BILATERAL W PA CHEST DX 05/14/2019 8:26 AMFINDINGS:Lungs: Lungs are clear. No con solidation.Pleural space: No pleural effusion. No pneumothorax.Heart/Mediastinum : Mild cardiomegaly. No mediastinal abnormality is evident.Bones/joints: No acut e osseous abnormality.IMPRESSION:Mild cardiomegaly without acute cardiopulmonary abnormality.Faiza Chandler MD On 11/15/2019 09:38:40; [id number]--Gofd by : Faiza Chandler MDDictated Date/time: 11/15/19 09:38Electronically Si gned by: Faiza Chandler MD 11/14/2008:38FINAL REPORT [facility][Q] LIPID PANEL WITH REFLEX TO DIRECT LDL 2019-11-02 08:52:00* Test Item Value Reference Range Interpretation Comments CHOLESTEROL, TOTAL; Normal (test code = 2093-3) 107 mg/dl <200 N HDL CHOLESTEROL; Below Low Threshold (test code = 2085-9) 35 mg/dl > OR = 40 TRIGLYCERIDES; Normal (test code = 2571-8) 99 mg/dl <150 N LDL-CHOLESTEROL; Normal (test code = 03864-8) 54 {MG/DL LISA} N Reference range: <100 Desirable range <100 mg/dL for primary prevention; <70 mg/dL for patients with CHD or diabetic patients with > or = 2 CHD risk factors. LDL-C is now calculated using the Garry calculation, which is a validated novel method providing better accuracy than the Friedewald equation in the estimation of LDL-C. Toby SS et al. NIXON. 2013;310(19): 9355-7844 (http ://education.[employer]/faq/YDS082) CHOL/HDLC RATIO (test code = CHOL/HDLC RATIO) 3.1 {CALC} <5.0 N NON HDL CHOLESTEROL (test code = NON HDL CHOLESTEROL) 72 {MG/DL CA L} <130 N For patients with diabetes plus 1 major ASCVD risk factor, treating to a non-HDL-C goal of <100 mg/dL (LDL-C of <70 mg/dL) is considered a therapeutic option. [facility][QL] CMP W/[id number] 08:52:00* Test Item Value Reference Range Interpretation Comments GLUCOSE; Normal (test code = 1547-9) 85 mg/dl 65-99 N Fasting reference interval UREA NITROGEN (BUN) (test code = UREA NITROGEN (BUN)) 16 mg/dl 7-25 N CREATININE (test code = CREATININE) 1.64 mg/dl 0.70-1.11 For patients >49 years of age, the reference limitfor Creatinine is approximately 13% higher for peopleidentified as -Djiboutian. eGFR NON- (test code = eGFR NON-RAMIRO N NAMIBIAN) 38 {ML/MIN/1.7} > OR = 60 eGFR (test code = eGFR ) 44 {ML/MIN/1.7} > OR = 60 BUN/CREATININE RATIO (test code = BUN/CREATININE RATIO) 10 {CALC} 6-22 N SODIUM (test code = SODIUM) 142 mmol/L 135-146 N POTASSIUM (test code = POTASSIUM) 4.6 mmol/L 3.5-5.3 N CHLORIDE (test code = CHLORIDE) 105 mmol/L 98-110 N CARBON DIOXIDE (test code = CARBON DIOXIDE) 30 mmol/L 20-32 N CALCIUM (test code = CALCIUM) 9.2 mg/dl 8.6-10.3 N PROTEIN, TOTAL (test code = PROTEIN, TOTAL) 6.1 g/dl 6.1-8.1 N ALBUMIN (test code = ALBUMIN) 3.3 g/dl 3.6-5.1 GLOBULIN (test code = GLOBULIN) 2.8 {G/DL CALC} 1.9-3.7 N ALBUMIN/GLOBULIN RATIO (test code = ALBUMIN/GLOBULIN RATIO) 1.2 {CALC} 1.0-2.5 N BILIRUBIN, TOTAL; Normal (test code = 12039-1) 0.9 mg/dl 0.2-1.2 N ALKALINE PHSPHATASE (test code = ALKALINE PHSPHATASE) 78 u/l 35-144 N AST; Normal (test code = 1916-6) 20 u/l 10-35 N ALT; Normal (test code = 1742-6) 10 u/l 9-46 N eGFR NON-AFR. NAMIBIAN (test code = eGFR NON-AFR. NAMIBIAN) 38 {ML/MIN/1.7} > OR = 60 ALKALINE PHOSPHATASE (test code = ALKALINE PHOSPHATASE) 78 u/l 35-144 N [facility][QL] CREATINE KINASE, [id number] 08:52:00* Test Item Value Reference Range Interpretation Comments CREATINE KINASE, TOTAL (test code = CREATINE KINASE, TOTAL) 82 u/l 44-196 N [facility][QL] TSH, 3RD GENERATION W/REFLEX TO [id number] 08:52:00* Test Item Value Reference Range Interpretation Comments TSH, 3RD GENERATION W/REFLEX TO FT4 (enmanuel t code = TSH, 3RD GENERATION W/REFLEX TO FT4) 0.21 {MIU/L} 0.40-4.50 [facility][QL] T4, [id number] 08:52:00* Test Item Value Reference Range Interpretation Comments T4, FREE (test code = T4, FREE) 1.6 ng/dl 0.8-1.8 N [facility][QL] PROTHROMBIN W/INR + PARTIAL THROMBOPLASTIN [id number] 08:51:00* Test Item Value Reference Range Interpretation Comments PARTIAL THROMBOPLASTIN TIME, ACTIVATED ( test code = PARTIAL THROMBOPLASTIN TIME, ACTIVATED) 31 {sec} 22-34 N This test has no t been validated for monitoringunfractionated heparin therapy. For testing thatis validated for this type of therapy, please referto the Heparin Anti-Xa assay (test code 09111). For additional information, please refer tohttp://education.[employer]/faq/YUA849(This link is being provided for informational/educational purposes only.) INR (test code = INR) 1.0 N Refere nce Range 0.9-1.1Moderate-intensity Warfarin Therapy 2.0-3.0Higher-intensity Warfarin Therapy 3.0-4.0 PT (test code = PT) 10.3 {sec} 9.0-11.5 N [facility][U] XRAY KNEE 1 OR 2 VWS RIGHT [id number] 13:46:00Images acquired, not reported on this accession number.[facility] (non-sputum)2019-10-08 14:20:00* Test Item Value Reference Range Interpretation Comments Result (test code = 6463-4) No acid-fast bacilli isolated in 42 day s AFB Smear (test code = 84036-3) No acid [facility]illi [facility]2019-10-08 14:20:00 * Test Item Value Reference Range Interpretation Comments CULTURE (BEAKER) (test code = 1095) No acid-fast bacilli isolate d in 42 days AFB SMEAR (BEAKER) (test code = 994) No acid fast bacilli seen AFB CULTURE + SMEAR (NON-SPUTUM)2019-10-08 14:20:00* Test Item Value Reference Range Interpretation Comments CULTURE (BEAKER) (test code = 1095) No acid-fast bacilli isolate d in 42 days AFB SMEAR (BEAKER) (test code = 994) No acid fast bacilli seen AFB CULTURE + SMEAR (NON-SPUTUM)2019-10-08 14:20:00* Test Item Value Reference Range Interpretation Comments CULTURE (BEAKER) (test code = 1095) No acid-fast bacilli isolate d in 42 days AFB SMEAR (BEAKER) (test code = 994) No acid fast bacilli seen [O] Urine Dipstick (In Office)2019-09-25 10:51:00* Test Item Value Reference Range Interpretation Comments Glucose (test code = Glucose) Normal N LEUKOCYTES (test code = LEUKOCYTES) Negative N NITRITE; Normal (test code = 42787-1) Negative N UROBILINOGEN; Normal (test code = 24222-4) Normal N PROTEIN (test code = 07659-0) Trace pH (test code = pH) 5 URINE BLOOD; Normal (test code = 57437-7) Negative N SPECIFIC GRAVITY; Normal (test code = 2965-2) 1.020 N [place]ET[place]ES; Normal (test code = 95441-0) Negative N BILIRUBIN; Normal (test code = 73025-2) Negative N [place] HospitalFungus culture + [id number] 18:03:00* Test Item Value Reference Range Interpretation Comments Result (test code = 6463-4) No fungus isolated in 28 days Fungus Smear (test code = 1406) No [facility] [id number] 18:03:00* Test Item Value Reference Range Interpretation Comments CULTURE (BEAKER) (test code = 1095) No fungus isolated in 28 days FUNGUS SMEAR (BEAKER) (test code = 1406) No fungi seen FUNGUS CULTURE + [id number] 18:03:00* Test Item Value Reference Range Interpretation Comments CULTURE (BEAKER) (test code = 1095) No fungus isolated in 28 days FUNGUS SMEAR (BEAKER) (test code = 1406) No fungi seen FUNGUS CULTURE + [id number] 18:03:00* Test Item Value Reference Range Interpretation Comments CULTURE (BEAKER) (test code = 1095) No fungus isolated in 28 days FUNGUS SMEAR (BEAKER) (test code = 1406) No fungi seen Basic Metabolic [id number] 04:56:00* Test Item Value Reference Range Interpretation Comments Sodium (test code = 2951-2) 133 meq/L 136-145 L Potassium (test code = 2823-3) 3.7 meq/L 3.5-5.1 Chloride (test code = 2075-0) 92 meq/L 98-107 L CO2 (test code = 2028-9) 34 meq/L 22-29 H BUN (test code = 3094-0) 32 mg/dL 7-21 H Creatinine (test code = 2160-0) 1.78 mg/dL 0.57-1.25 H Glucose (test code = 2345-7) 92 mg/dL 70-105 Calcium (test code = 44853-6) 7.9 mg/dL 8.4-10.2 L EGFR (test code = 83707-9) 37 mL/min/1.73 sq m ESTIMATED GFR IS NOT ACCURATE CREATININE CLEARANCE IN PREDICTING GLOMERULAR FILTRATION RATE. ESTIMATED GFR IS NOT APPLICABLE FOR DIALYSIS PATIENTS. Lab Interpretation (test code = 64725-0) Abnormal [facility] METABOLIC [id number] 04:56:00* Test Item Value Reference Range Interpretation Comments SODIUM (BEAKER) (test code = 381) 133 meq/L 136-145 L POTASSIUM (BEAKER) (test code = 379) 3.7 meq/L 3.5-5.1 CHLORIDE (BEAKER) (test code = 382) 92 meq/L 98-107 L CO2 (BEAKER) (test code = 355) 34 meq/L 22-29 H BLOOD UREA NITROGEN (BEAKER) (test code = 354) 32 mg/dL 7-21 H CREATININE (BEAKER) (test code = 358) 1.78 mg/dL 0.57-1.25 H GLUCOSE RANDOM (BEAKER) (test code = 652) 92 mg/dL 70-105 CALCIUM (BEAKER) (test code = 697) 7.9 mg/dL 8.4-10.2 L EGFR (BEAKER) (test code = 1092) 37 mL/min/1.73 sq m ESTIMATED GFR IS NOT ACCURATE CREATININE CLEARANCE IN PREDICTING GLOMERULAR FILTRATION RATE. ESTIMATED GFR IS NOT APPLICABLE FOR DIALYSIS PATIENTS. CBC (Hemogram only)2019-09-10 04:49:00* Test Item Value Reference Range Interpretation Comments WBC (test code = 6690-2) 8.0 3.5- 10.5 K/L RBC (test code = 789-8) 3.67 4.63- 6.08 M/L L MCHC (test code = 786-4) 32.5 32.3- 36.5 GM/DL L Hematocrit (test code = 4544-3) 32.0 % 40.1-51 L MCV (test code = 787-2) 87.2 fL 79-92.2 MCH (test code = 785-6) 28.3 pg 25.7-32.2 RDW (test code = 788-0) 16.7 % 11.6-14.4 H Platelets (test code = 777-3) 170 150- 450 K/CU MM MPV (test code = 26033-9) 13.0 fL 9.4-12.4 H Lab Interpretation (test code = 53915-3) Abnormal [facility] (HEMOGRAM ONLY)2019-09-10 04:49:00* Test Item Value Reference Range Interpretation Comments WHITE BLOOD CELL COUNT (BEAKER) (test code = 775) 8.0 K/ L 3.5- 10.5 RED BLOOD CELL COUNT (BEAKER) (test code = 761) 3.67 M/ L 4.63-6 .08 L HEMOGLOBIN (BEAKER) (test code = 410) 10.4 GM/DL 13.7-17.5 L HEMATOCRIT (BEAKER) (test code = 411) 32.0 % 40.1-51.0 L MEAN CORPUSCULAR VOLUME (BEAKER) (test code = 753) 87.2 fL 79. 0-92.2 MEAN CORPUSCULAR HEMOGLOBIN (BEAKER) (test code = 751) 28.3 pg 25.7-32.2 MEAN CORPUSCULAR HEMOGLOBIN CONC (BEAKER) (test code = 752) 32.5 GM/DL 32.3-36.5 RED CELL DISTRIBUTION WIDTH (BEAKER) (test code = 412) 16.7 % 11.6-14.4 H PLATELET COUNT (BEAKER) (test code = 756) 170 K/CU MM 150-450 MEAN PLATELET VOLUME (BEAKER) (test code = 754) 13.0 fL 9.4-12 .4 H Comprehensive metabolic [id number] 05:12:00* Test Item Value Reference Range Interpretation Comments Protein, Total (test code = 2885-2) 5.9 6.0- 8.3 gm/dL L Albumin (test code = 68468-1) 3.4 g/dL 3.5-5 L Alkaline Phosphatase (test code = 6768-6) 83 U/L 40-150 Total Bilirubin (test code = 1975-2) 1.1 mg/dL 0.2-1.2 Sodium (test code = 2951-2) 132 meq/L 136-145 L Potassium (test code = 2823-3) 3.9 meq/L 3.5-5.1 Chloride (test code = 2075-0) 92 meq/L 98-107 L CO2 (test code = 2027-9) 33 meq/L 22-29 H BUN (test code = 3094-0) 30 mg/dL 7-21 H Creatinine (test code = 2160-0) 1.91 mg/dL 0.57-1.25 H Glucose (test code = 2345-7) 87 mg/dL 70-105 Calcium (test code = 53068-8) 8.2 mg/dL 8.4-10.2 L AST (test code = 1920-8) 18 U/L 5-34 ALT (test code = 1742-6) 15 U/L 6-55 EGFR (test code = 02890-3) 34 mL/min/1.73 sq m ESTIMATED GFR IS NOT ACCURATE CREATININE CLEARANCE IN PREDICTING GLOMERULAR FILTRATION RATE. ESTIMATED GFR IS NOT APPLICABLE FOR DIALYSIS PATIENTS. Lab Interpretation (test code = 48898-5) Abnormal [facility] [id number] 05:12:00* Test Item Value Reference Range Interpretation Comments TOTAL PROTEIN (BEAKER) (test code = 770) 5.9 gm/dL 6.0-8.3 L ALBUMIN (BEAKER) (test code = 1145) 3.4 g/dL 3.5-5.0 L ALKALINE PHOSPHATASE (BEAKER) (test code = 346) 83 U/L 40-150 BILIRUBIN TOTAL (BEAKER) (test code = 377) 1.1 mg/dL 0.2-1.2 SODIUM (BEAKER) (test code = 381) 132 meq/L 136-145 L POTASSIUM (BEAKER) (test code = 379) 3.9 meq/L 3.5-5.1 CHLORIDE (BEAKER) (test code = 382) 92 meq/L 98-107 L CO2 (BEAKER) (test code = 355) 33 meq/L 22-29 H BLOOD UREA NITROGEN (BEAKER) (test code = 354) 30 mg/dL 7-21 H CREATININE (BEAKER) (test code = 358) 1.91 mg/dL 0.57-1.25 H GLUCOSE RANDOM (BEAKER) (test code = 652) 87 mg/dL 70-105 CALCIUM (BEAKER) (test code = 697) 8.2 mg/dL 8.4-10.2 L AST (SGOT) (BEAKER) (test code = 353) 18 U/L 5-34 ALT (SGPT) (BEAKER) (test code = 347) 15 U/L 6-55 EGFR (BEAKER) (test code = 1092) 34 mL/min/1.73 sq m ESTIMATED GFR IS NOT ACCURATE CREATININE CLEARANCE IN PREDICTING GLOMERULAR FILTRATION RATE. ESTIMATED GFR IS NOT APPLICABLE FOR DIALYSIS PATIENTS. CBC with platelet count + automated [id number] 04:48:00* Test Item Value Reference Range Interpretation Comments WBC (test code = 6690-2) 13.8 3.5- 10.5 K/L H RBC (test code = 789-8) 4.01 4.63- 6.08 M/L L MCHC (test code = 786-4) 32.5 32.3- 36.5 GM/DL L Hematocrit (test code = 4544-3) 34.5 % 40.1-51 L MCV (test code = 787-2) 86.0 fL 79-92.2 MCH (test code = 785-6) 27.9 pg 25.7-32.2 RDW (test code = 788-0) 16.5 % 11.6-14.4 H Platelets (test code = 777-3) 163 150- 450 K/CU MM MPV (test code = 71195-9) 13.4 fL 9.4-12.4 H % Neutros (test code = 429) 84 % % Lymphs (test code = 430) 7 % % Monos (test code = 431) 9 % % Eos (test code = 432) 0 % % Baso (test code = 437) 0 % # Neutros (test code = 670) 11.54 1.78- 5.38 K/L H # Lymphs (test code = 414) 0.93 1.32- 3.57 K/L L # Monos (test code = 415) 1.23 0.30- 0.82 K/L H # Eos (test code = 416) 0.03 0.04- 0.54 K/L L # Baso (test code = 417) 0.03 0.01- 0.08 K/L Immature Granulocytes-Relative (test code = 2801) 0 % 0-1 Lab Interpretation (test code = 00397-2) Abnormal [facility] W/PLT COUNT & AUTO [id number] 04:48:00* Test Item Value Reference Range Interpretation Comments WHITE BLOOD CELL COUNT (BEAKER) (test code = 775) 13.8 K/ L 3.5- 10.5 H RED BLOOD CELL COUNT (BEAKER) (test code = 761) 4.01 M/ L 4.63-6 .08 L HEMOGLOBIN (BEAKER) (test code = 410) 11.2 GM/DL 13.7-17.5 L HEMATOCRIT (BEAKER) (test code = 411) 34.5 % 40.1-51.0 L MEAN CORPUSCULAR VOLUME (BEAKER) (test code = 753) 86.0 fL 79. 0-92.2 MEAN CORPUSCULAR HEMOGLOBIN (BEAKER) (test code = 751) 27.9 pg 25.7-32.2 MEAN CORPUSCULAR HEMOGLOBIN CONC (BEAKER) (test code = 752) 32.5 GM/DL 32.3-36.5 RED CELL DISTRIBUTION WIDTH (BEAKER) (test code = 412) 16.5 % 11.6-14.4 H PLATELET COUNT (BEAKER) (test code = 756) 163 K/CU MM 150-450 MEAN PLATELET VOLUME (BEAKER) (test code = 754) 13.4 fL 9.4-12 .4 H NEUTROPHILS RELATIVE PERCENT (BEAKER) (test code = 429) 84 % LYMPHOCYTES RELATIVE PERCENT (BEAKER) (test code = 430) 7 % MONOCYTES RELATIVE PERCENT (BEAKER) (test code = 431) 9 % EOSINOPHILS RELATIVE PERCENT (BEAKER) (test code = 432) 0 % BASOPHILS RELATIVE PERCENT (BEAKER) (test code = 437) 0 % NEUTROPHILS ABSOLUTE COUNT (BEAKER) (test code = 670) 11.54 K/ L 1.78-5.38 H LYMPHOCYTES ABSOLUTE COUNT (BEAKER) (test code = 414) 0.93 K/ L 1.32-3.57 L MONOCYTES ABSOLUTE COUNT (BEAKER) (test code = 415) 1.23 K/ L 0. 30-0.82 H EOSINOPHILS ABSOLUTE COUNT (BEAKER) (test code = 416) 0.03 K/ L 0.04-0.54 L BASOPHILS ABSOLUTE COUNT (BEAKER) (test code = 417) 0.03 K/ L 0. 01-0.08 IMMATURE GRANULOCYTES-RELATIVE PERCENT (BEAKER) (test code = 2801) 0 % 0-1 TSH/Free T4 If [id number] 09:57:00* Test Item Value Reference Range Interpretation Comments TSH (test code = 13183-6) 3.92 0.35- 4.94 uIU/mL DUDLEY (test code = DUDLEY) Sour Bleaching Pleater HUSSEIN White Lab Interpretation (test code = 68925-9) [facility] T[facility] IF [id number] 09:57:00* Test Item Value Reference Range Interpretation Comments THYROID STIMULATING HORMONE (BEAKER) (test code = 772) 3.92 uIU/mL 0.35-4.94 Sour Bleaching Pleater HUSSEIN ZEPEDA FVitamin D, [id number] 05:25:00* Test Item Value Reference Range Interpretation Comments Vitamin D 25-Hydroxy (test code = 2764) 31.9 ng/mL 6.6-49.9 DUDLEY (test code = DUDLEY) Effective 03/23/2017: Refere nce Range ChangeNew: 6.6-49.9 ng/mL Previous: 13.0-47.8 ng/mL Recommended Vitamin D Target Range: 30.0-40.0 ng/mLOperator HUSSEIN Pal Lab Interpretation (test code = 39025-6) [facility], [id number] 05:25:00* Test Item Value Reference Range Interpretation Comments VITAMIN D 25-OH (BEAKER) (test code = 2764) 31.9 ng/mL 6.6-49.9 Effective 03/23/2017: Reference Range ChangeNew: 6.6-49.9 ng/mL Previous: 13.0 -47.8 ng/mLRecommended Vitamin D Target Range: 30.0-40.0 ng/mLOperator ID Mannie PorterWFllrjueph8511-57-56 05:02:00* Test Item Value Reference Range Interpretation Comments Magnesium (test code = 96361-7) 1.9 mg/dL 1.6-2.6 DUDLEY (test code = DUDLEY) Sour Bleaching Pleater ID Mannie HARRISON Lab Interpretation (test code = 65557-3) [facility]2020-03-26 05:02:00* Test Item Value Reference Range Interpretation Comments Phosphorus (test code = 2777-1) 2.7 mg/dL 2.3-4.7 DUDLEY (test code = DUDLEY) Sour Bleaching Pleater ID Mannie HARRISON Lab Interpretation (test code = 65227-8) [facility]US2020-03-26 05:02:00* Test Item Value Reference Range Interpretation Comments PHOSPHORUS (BEAKER) (test code = 604) 2.7 mg/dL 2.3-4.7 Sour Bleaching Pleater ID - HUNTER [id number] 05:02:00* Test Item Value Reference Range Interpretation Comments MAGNESIUM (BEAKER) (test code = 627) 1.9 mg/dL 1.6-2.6 Sour Bleaching Pleater ID - HUNTER MBASIC METABOLIC [id number] 05:02:00* Test Item Value Reference Range Interpretation Comments SODIUM (BEAKER) (test code = 381) 131 meq/L 136-145 L POTASSIUM (BEAKER) (test code = 379) 4.1 meq/L 3.5-5.1 CHLORIDE (BEAKER) (test code = 382) 90 meq/L 98-107 L CO2 (BEAKER) (test code = 355) 34 meq/L 22-29 H BLOOD UREA NITROGEN (BEAKER) (test code = 354) 32 mg/dL 7-21 H CREATININE (BEAKER) (test code = 358) 1.77 mg/dL 0.57-1.25 H GLUCOSE RANDOM (BEAKER) (test code = 652) 97 mg/dL 70-105 CALCIUM (BEAKER) (test code = 697) 9.2 mg/dL 8.4-10.2 EGFR (ANA LAURA) (test code = 1092) 37 mL/min/1.73 sq m ESTIMATED GFR IS NOT ACCURATE CREATININE CLEARANCE IN PREDICTING GLOMERULAR FILTRATION RATE. ESTIMATED GFR IS NOT APPLICABLE FOR DIALYSIS PATIENTS. Sour Bleaching Pleater ID - HUNTER MRAD, CHEST, 1 VIEW, NON [id number] 04:50:00Reason for exam:->hypercarbic respiratory insufficiencyShould this be performed at the bedside?->YesFINAL REPORT RAD, CHEST, 1 VIEW, NON DEPT INDICATION: hypercarbic respiratory insufficiency COMPARISON: Prior day's exam FINDINGS: Portable frontal view of the chest. IMPRESSION: Lungs and pleura: Unchanged airspace and pleural opacities. No pneumothorax.Heart and mediastinum: Stable contours. Additional findings: None. Signed: Shala Al MDReport Verified Date/Time: 09/06/2019 04:50:50 chest 1 view portable / [id number] 04:50:00Interface, External Ris In - 09/06/2019 4:53 AM CDTFINAL REPORT RAD, CHEST, 1 VIEW, NON DEPT INDICATION: hypercarbic respiratory insufficiency COMPARISON: Prior day's exam FINDINGS: Portable frontal view of the chest. IMPRESSION: Lungs and pleura: Unchanged airspace and pleural opacities. No pneumothorax.Heart and mediastinum: Stable contours. Additional findings: None. Signed: Shala Aleport Verified Date/Time: 09/06/2019 04:50:50 [facility]CT, [id number] 17:38:00Patient with DORCAS and prior CT scan demonstrating mild right hydronephrosis and hydroureter concerning for obstructive uropathyPlease specify:->Renal Stone ProtocolFINAL REPORT TECHNIQUE: CT of the abdomen and [...] hepatic lesions. Prior cholecystectomy. No biliary ductal dilatation.SPLEEN: Unchanged prominent spleen measures 13.9 cm in the craniocaudal dimension.PANCREAS: Unchanged subcentimeter hypodensity in the pancreatic body may represent a cystic lesion such as a sidebranch intraductal papillary mucinous neoplasm (IPMN); follow-up abdomen MRI or CT with and without intravenous contrast (pancreatic protocol) may be obtained in 12 months for reassessment. No ductal dilatation. ADRENALS: No adrenal nodules.KIDN EYS/URETERS: Resolved right hydronephrosis. Unchanged subcentimeter left renal c yst.PELVIC ORGANS/BLADDER: Air within the bladder lumen. Prostate and seminal ve sicles are grossly unremarkable. PERITONEUM/RETROPERITONEUM: No free air or flui d. Unchanged mild fat stranding in the left lower quadrant adjacent to the exter nal iliac vessels and the left inguinal canal.LYMPH NODES: No lymphadenopathy.VE SSELS: Atherosclerotic vascular calcifications in the abdominal aorta and branch vessels without aneurysm. GI TRACT: No distention or wall thickening. Colonic d iverticula. BONES AND SOFT TISSUES: Degenerative changes of the visualized spine and both hips. 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 Partially visualized hardware in the right femur. Unchanged hypodense structure in the rig ht inguinal canal may represent fluid or the right testicle; this finding may be correlated with physical examination or scrotal ultrasound. IMPRESSION:Resolve d right hydronephrosis. Air within the bladder lumen, likely related to recent c atheterization/instrumentation. Otherwise, no significant change in the abdomen or pelvis since 08/31/2019. Signed: eKlly Dhillon Verified Date/Time: 09/05/2019 17:38:46 Reading Location: [facility] B1 C013Y CT Body Reading Room Elec tronically signed by: KELLY DHILLON MD on 09/05/2019 05:[address] abdomen/pelvis without iv [id number] 17:38:00Interface, External Ris In - 09/05/2019 5:40 PM CDTFINAL REPORT TECHNIQUE: CT of the abdomen and [...] both lower lobes. No significant change in t he small pericardial effusion. Atherosclerotic coronary artery calcifications. H EPATOBILIARY: No focal hepatic lesions. Prior cholecystectomy. No biliary ductal dilatation.SPLEEN: Unchanged prominent spleen measures 13.9 cm in the craniocau yasmin dimension.PANCREAS: Unchanged subcentimeter hypodensity in the pancreatic miguel angel dy may represent a cystic lesion such as a sidebranch intraductal papillary muci nous neoplasm (IPMN); follow-up abdomen MRI or CT with and without intravenous c ontrast (pancreatic protocol) may be obtained in 12 months for reassessment. No ductal dilatation. ADRENALS: No adrenal nodules.KIDNEYS/URETERS: Resolved right hydronephrosis. Unchanged subcentimeter left renal cyst.PELVIC ORGANS/BLADDER: A ir within the bladder lumen. Prostate and seminal vesicles are grossly unremarka ble. PERITONEUM/RETROPERITONEUM: No free air or fluid. Unchanged mild fat strand ing in the left lower quadrant adjacent to the external iliac vessels and the le ft inguinal canal.LYMPH NODES: No lymphadenopathy.VESSELS: Atherosclerotic vascu lar calcifications in the abdominal aorta and branch vessels without aneurysm. G I TRACT: No distention or wall thickening. Colonic diverticula. BONES AND SOFT T ISSUES: Degenerative changes of the visualized spine and both hips. 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 Partially visualized hardware in the r ight femur. Unchanged hypodense structure in the right inguinal canal may repres ent fluid or the right testicle; this finding may be correlated with physical ex amination or scrotal ultrasound. IMPRESSION:Resolved right hydronephrosis. Air within the bladder lumen, likely related to recent catheterization/instrumentati on. Otherwise, no significant change in the abdomen or pelvis since 08/31/2019. S igned: Kelly Dhillon MDReport Verified Date/Time: 09/05/2019 17:38:46 Reading Location: [facility] B1 C013Y CT Body Reading Room [facility] Creatinine, random [id number] 14:36:00* Test Item Value Reference Range Interpretation Comments Creatinine, Ur (test code = 2161-8) 102.9 mg/dL DUDLEY (test code = DUDLEY) Reference Range: No NormalsOperator ID - DE LA ROSA MADALYN [facility] random [id number] 14:36:00* Test Item Value Reference Range Interpretation Comments Sodium Urine (test code = 2955-3) 106 meq/L DUDLEY (test code = DUDLEY) Reference Range: No NormalsOperator ID - DE LA ROSA MADALYN F [facility] HospitalUrea Nitrogen, random [id number] 14:36:00* Test Item Value Reference Range Interpretation Comments Urea Nitrogen, Ur (test code = 3095-7) 601 mg/dL DUDLEY (test code = DUDLEY) Reference Range: No NormalsOperator ID - DE LA ROSA MADALYN F [facility] HospitalCREATININE, RANDOM [id number] 14:36:00* Test Item Value Reference Range Interpretation Comments CREATININE URINE (BEAKER) (test code = 375) 102.9 mg/dL Reference Range: No NormalsOperator ID - KATELYN FSODIUM, RANDOM URINE 2019-09-05 14:36:00* Test Item Value Reference Range Interpretation Comments SODIUM URINE (BEAKER) (test code = 243) 106 meq/L Reference Range: No NormalsOperator ID - KATELYN FUREA NITROGEN, RANDOM URINE 2019-09-05 14:36:00* Test Item Value Reference Range Interpretation Comments UREA NITROGEN URINE (BEAKER) (test code = 538) 601 mg/dL Reference Range: No NormalsOperator ID - CAROLINA FUrinalysis without [id number] 14:28:00* Test Item Value Reference Range Interpretation Comments Color, UA (test code = 5778-6) Yellow Clarity, UA (test code = 5767-9) Clear Specific [place], UA (test code = 5811-5) 1.015 1.001-1.035 pH, UA (test code = 5803-2) 8.0 5.0-8.0 Protein, UA (test code = 70786-3) 20 mg/dL Negative A Glucose, UA (test code = 365) Negative Negative Ketones, UA (test code = 2514-8) Negative Negative Bilirubin, UA (test code = 84535-0) Negative Negative Blood, UA (test code = 22784-9) Negative Negative Nitrite, UA (test code = 5802-4) Negative Negative Leukocytes, UA (test code = 5799-2) Negative Negative Urobilinogen, UA (test code = 37421-3) 2.0 mg/dL 0.2-1 H Specimen Source (test code = 2795) DUDLEY (test code = DUDLEY) Sour Bleaching Pleater ID - [auto]Sour Bleaching Pleater ID - tech Sour Bleaching Pleater ID - tech Lab Interpretation (test code = 85468-8) [facility] [id number] 14:28:00* Test Item Value Reference Range Interpretation Comments COLOR (BEAKER) (test code = 470) Yellow CLARITY (BEAKER) (test code = 469) Clear SPECIFIC GRAVITY UA (BEAKER) (test code = 468) 1.015 1.001-1 .035 PH UA (BEAKER) (test code = 467) 8.0 5.0-8.0 PROTEIN UA (BEAKER) (test code = 464) 20 mg/dL Negative A GLUCOSE UA (BEAKER) (test code = 365) Negative Negative KETONES UA (BEAKER) (test code = 371) Negative Negative BILIRUBIN UA (BEAKER) (test code = 462) Negative Negative BLOOD UA (BEAKER) (test code = 461) Negative Negative NITRITE UA (BEAKER) (test code = 465) Negative Negative LEUKOCYTE ESTERASE UA (BEAKER) (test code = 466) Negative Negat mattie UROBILINOGEN UA (BEAKER) (test code = 463) 2.0 mg/dL 0.2-1.0 H SOURCE(BEAKER) (test code = 2795) Sour Bleaching Pleater ID - [auto]Sour Bleaching Pleater ID - techOperator ID - techBlood gas, venous 2019-09-05 06:46:00* Test Item Value Reference Range Interpretation Comments pH, Evangelist (test code = 2746-6) 7.54 7.32-7.42 H pCO2, Evangelist (test code = 755) 45 41- 51 mmHg pO2, Evangelist (test code = 2705-2) 49 25- 40 mmHg H O2 Sat, Evangelist (test code = 2711-0) 90.7 % 40-70 H HCO3, Evangelist (test code = 71776-8) 38 mmol/L 21-29 H Base Excess, Evangelist (test code = 1927-3) 13.8 mmol/L -2-3 H Patient Temperature (test code = 8310-5) 35.6 C FIO2 (test code = 1819) 21 % Lab Interpretation (test code = 07153-5) Abnormal [facility], [id number] 06:46:00* Test Item Value Reference Range Interpretation Comments PH VENOUS (BEAKER) (test code = 701) 7.54 7.32-7.42 H PCO2 VENOUS (BEAKER) (test code = 755) 45 mmHg 41-51 PO2 VENOUS (BEAKER) (test code = 702) 49 mmHg 25-40 H O2 SATURATION VENOUS (BEAKER) (test code = 703) 90.7 % 40.0-7 0.0 H HCO3 VENOUS (BEAKER) (test code = 705) 38 mmol/L 21-29 H BASE EXCESS VENOUS (BEAKER) (test code = 704) 13.8 mmol/L -2.0-3.0 H PATIENT TEMPERATURE (BEAKER) (test code = 1818) 35.6 C FIO2 (BEAKER) (test code = 1819) 21.0 % [id number] 06:36:00* Test Item Value Reference Range Interpretation Comments MAGNESIUM (BEAKER) (test code = 627) 2.0 mg/dL 1.6-2.6 Sour Bleaching Pleater ID - HUNTER MBASIC METABOLIC [id number] 06:36:00* Test Item Value Reference Range Interpretation Comments SODIUM (BEAKER) (test code = 381) 135 meq/L 136-145 L POTASSIUM (BEAKER) (test code = 379) 3.6 meq/L 3.5-5.1 CHLORIDE (BEAKER) (test code = 382) 89 meq/L 98-107 L CO2 (BEAKER) (test code = 355) 38 meq/L 22-29 H BLOOD UREA NITROGEN (BEAKER) (test code = 354) 34 mg/dL 7-21 H CREATININE (BEAKER) (test code = 358) 1.99 mg/dL 0.57-1.25 H GLUCOSE RANDOM (BEAKER) (test code = 652) 83 mg/dL 70-105 CALCIUM (BEAKER) (test code = 697) 9.0 mg/dL 8.4-10.2 EGFR (BEAKER) (test code = 1092) 32 mL/min/1.73 sq m ESTIMATED GFR IS NOT ACCURATE CREATININE CLEARANCE IN PREDICTING GLOMERULAR FILTRATION RATE. ESTIMATED GFR IS NOT APPLICABLE FOR DIALYSIS PATIENTS. Sour Bleaching Pleater ID - HUNTER MRAD, CHEST, 1 VIEW, NON [id number] 05:05:00Reason for exam:->hypercarbic respiratory insufficiencyShould this be performed at the bedside?->YesFINAL REPORT CLINICAL INDICATION: Respiratory insufficiency Comparison: 09/04/2019 The patient is rotated to the left. The cardiomediastinal contours are grossly stable. Bilateral parenchymal and pleural opacities are unchanged. There is no pneumothorax. Signed: Belinda Ravi MDReport Verified Date/Time: 09/05/2019 05:05:36 [id number] 17:29:00* Test Item Value Reference Range Interpretation Comments Potassium (test code = 2823-3) 4.1 meq/L 3.5-5.1 Specimen slightly hemolyzed DUDLEY (test code = DUDLEY) Sour Bleaching Pleater ID - JORDY Lab Interpretation (test code = 33886-4) [id number]* Test Item Value Reference Range Interpretation Comments MAGNESIUM (BEAKER) (test code = 627) 2.0 mg/dL 1.6-2.6 Specimen slightly hemolyzed Sour Bleaching Pleater ID - [id number] 17:29:00* Test Item Value Reference Range Interpretation Comments POTASSIUM (BEAKER) (test code = 379) 4.1 meq/L 3.5-5.1 Specimen slightly hemolyzed Sour Bleaching Pleater ID - EMERSONCalcium, [id number] 17:28:00* Test Item Value Reference Range Interpretation Comments Calcium, Ion (test code = 1994-3) 1.11 mmol/L 1.12-1.27 L pH, Blood (test code = 32407-3) 7.47 DUDLEY (test code = DUDLEY) Check serum Ionized Calcium level after 4 hours after IV Calcium replacement. Lab Interpretation (test code = 76046-5) [facility]normal [facility], [id number] 17:28:00* Test Item Value Reference Range Interpretation Comments CALCIUM IONIZED (BEAKER) (test code = 698) 1.11 mmol/L 1.12-1.27 L PH, BLOOD (BEAKER) (test code = 1810) 7.47 Check serum Ionized Calcium level after 4 hours after IV Calcium replacement. BASIC METABOLIC [id number] 05:18:00* Test Item Value Reference Range Interpretation Comments SODIUM (BEAKER) (test code = 381) 136 meq/L 136-145 POTASSIUM (BEAKER) (test code = 379) 3.5 meq/L 3.5-5.1 Specimen slightly hemolyzed CHLORIDE (BEAKER) (test code = 382) 89 meq/L 98-107 L CO2 (BEAKER) (test code = 355) 40 meq/L 22-29 HH BLOOD UREA NITROGEN (BEAKER) (test code = 354) 36 mg/dL 7-21 H CREATININE (BEAKER) (test code = 358) 2.28 mg/dL 0.57-1.25 H Specimen slightly hemolyzed GLUCOSE RANDOM (BEAKER) (test code = 652) 102 mg/dL 70-105 CALCIUM (BEAKER) (test code = 697) 8.7 mg/dL 8.4-10.2 EGFR (BEAKER) (test code = 1092) 28 mL/min/1.73 sq m ESTIMATED GFR IS NOT ACCURATE CREATININE CLEARANCE IN PREDICTING GLOMERULAR FILTRATION RATE. ESTIMATED GFR IS NOT APPLICABLE FOR DIALYSIS PATIENTS. Sour Bleaching Pleater ID - HUNTER [facility] W/PLT COUNT & AUTO [id number] 04:47:00* Test Item Value Reference Range Interpretation Comments WHITE BLOOD CELL COUNT (BEAKER) (test code = 775) 13.7 K/ L 3.5- 10.5 H RED BLOOD CELL COUNT (BEAKER) (test code = 761) 3.94 M/ L 4.63-6 .08 L HEMOGLOBIN (BEAKER) (test code = 410) 11.1 GM/DL 13.7-17.5 L HEMATOCRIT (BEAKER) (test code = 411) 34.5 % 40.1-51.0 L MEAN CORPUSCULAR VOLUME (BEAKER) (test code = 753) 87.6 fL 79. 0-92.2 MEAN CORPUSCULAR HEMOGLOBIN (BEAKER) (test code = 751) 28.2 pg 25.7-32.2 MEAN CORPUSCULAR HEMOGLOBIN CONC (BEAKER) (test code = 752) 32.2 GM/DL 32.3-36.5 L RED CELL DISTRIBUTION WIDTH (BEAKER) (test code = 412) 16.1 % 11.6-14.4 H PLATELET COUNT (BEAKER) (test code = 756) 245 K/CU MM 150-450 MEAN PLATELET VOLUME (BEAKER) (test code = 754) 12.8 fL 9.4-12 .4 H NUCLEATED RED BLOOD CELLS (BEAKER) (test code = 413) 0 /100 WBC 0 -0 NEUTROPHILS RELATIVE PERCENT (BEAKER) (test code = 429) 86 % LYMPHOCYTES RELATIVE PERCENT (BEAKER) (test code = 430) 7 % MONOCYTES RELATIVE PERCENT (BEAKER) (test code = 431) 7 % EOSINOPHILS RELATIVE PERCENT (BEAKER) (test code = 432) 0 % BASOPHILS RELATIVE PERCENT (BEAKER) (test code = 437) 0 % NEUTROPHILS ABSOLUTE COUNT (BEAKER) (test code = 670) 11.71 K/ L 1.78-5.38 H LYMPHOCYTES ABSOLUTE COUNT (BEAKER) (test code = 414) 0.89 K/ L 1.32-3.57 L MONOCYTES ABSOLUTE COUNT (BEAKER) (test code = 415) 0.93 K/ L 0. 30-0.82 H EOSINOPHILS ABSOLUTE COUNT (BEAKER) (test code = 416) 0.02 K/ L 0.04-0.54 L BASOPHILS ABSOLUTE COUNT (BEAKER) (test code = 417) 0.01 K/ L 0. 01-0.08 IMMATURE GRANULOCYTES-RELATIVE PERCENT (BEAKER) (test code = 2801) 1 % 0-1 RAD, CHEST, 1 VIEW, NON [id number] 02:52:00Reason for exam:->hypercarbic respiratory insufficiencyShould this be performed at the bedside?->YesFINAL REPORT CLINICAL INDICATION: Respiratory insufficiency Comparison: 09/03/2019 The cardiomediastinal contours are stable. Central pul monary vascular congestion and bilateral parenchymal and pleural opacities are u nchanged. There is no pneumothorax. Signed: Belinda Ravi MDReport Verified Date /Time: 09/04/2019 02:52:41 Blood Culture - Routine (Left Venipuncture)2019-09-03 13:00:00* Test Item Value Reference Range Interpretation Comments Result (test code = 6463-4) No [facility] in 5 [id number]* Test Item Value Reference Range Interpretation Comments CULTURE (BEAKER) (test code = 1095) No growth in 5 days BLOOD [id number] 13:00:00* Test Item Value Reference Range Interpretation Comments CULTURE (BEAKER) (test code = 1095) No growth in 5 days ECG 12 [id number] 06:45:18Interface, External Ris In - 09/03/2019 6:45 AM CDTVentricular Rate 72 BPMAtrial Rate 72 BPMP-R Interval 162 msQRS Duration 106 msQ-T Interval 558 msQTC Calculation(Bazett) 611 msP [place] 76 degreesR [place] 46 degreesT [place] 83 degreesNormal sinus rhythmPossible Inferior infarct , age undeterminedST & T wave abnormality, consider anterolateral ischemiaProlonged QTAbnormal ECGWhen compared with ECG of 31-AUG-2019 12:28,T wave inversion now evident in Inferior leadsConfirmed by MD JOSEPH, FESTUS Funk ([id number]) on 09/03/2019 6:45:13 [facility] [id number] 06:06:00 * Test Item Value Reference Range Interpretation Comments SODIUM (BEAKER) (test code = 381) 138 meq/L 136-145 POTASSIUM (BEAKER) (test code = 379) 3.6 meq/L 3.5-5.1 CHLORIDE (BEAKER) (test code = 382) 87 meq/L 98-107 L CO2 (BEAKER) (test code = 355) 39 meq/L 22-29 H BLOOD UREA NITROGEN (BEAKER) (test code = 354) 32 mg/dL 7-21 H CREATININE (BEAKER) (test code = 358) 2.74 mg/dL 0.57-1.25 H GLUCOSE RANDOM (BEAKER) (test code = 652) 84 mg/dL 70-105 CALCIUM (BEAKER) (test code = 697) 9.2 mg/dL 8.4-10.2 EGFR (BEAKER) (test code = 1092) 22 mL/min/1.73 sq m ESTIMATED GFR IS NOT ACCURATE CREATININE CLEARANCE IN PREDICTING GLOMERULAR FILTRATION RATE. ESTIMATED GFR IS NOT APPLICABLE FOR DIALYSIS PATIENTS. Sour Bleaching Pleater HUSSEIN GORE LHepatic function [id number] 06:00:00* Test Item Value Reference Range Interpretation Comments Protein, Total (test code = 2885-2) 6.9 6.0- 8.3 gm/dL Albumin (test code = 19152-6) 3.4 g/dL 3.5-5 L Total Bilirubin (test code = 1974-2) 0.8 mg/dL 0.2-1.2 Bilirubin, Direct (test code = 1967-7) 0.5 mg/dL 0.1-0.5 Alkaline Phosphatase (test code = 6768-6) 84 U/L 40-150 AST (test code = 1920-8) 33 U/L 5-34 ALT (test code = 1742-6) 22 U/L 6-55 DUDLEY (test code = DUDLEY) Sour Bleaching Pleater HUSSEIN GORE L Lab Interpretation (test code = 34048-4) [id number] 06:00:00* Test Item Value Reference Range Interpretation Comments PHOSPHORUS (BEAKER) (test code = 604) 4.4 mg/dL 2.3-4.7 Sour Bleaching Pleater HUSSEIN GORE [id number] 06:00:00* Test Item Value Reference Range Interpretation Comments MAGNESIUM (BEAKER) (test code = 627) 2.4 mg/dL 1.6-2.6 Sour Bleaching Pleater HUSSEIN GORE LHEPATIC FUNCTION [id number] 06:00:00* Test Item Value Reference Range Interpretation Comments TOTAL PROTEIN (BEAKER) (test code = 770) 6.9 gm/dL 6.0-8.3 ALBUMIN (BEAKER) (test code = 1145) 3.4 g/dL 3.5-5.0 L BILIRUBIN TOTAL (BEAKER) (test code = 377) 0.8 mg/dL 0.2-1.2 BILIRUBIN DIRECT (BEAKER) (test code = 706) 0.5 mg/dL 0.1-0.5 ALKALINE PHOSPHATASE (BEAKER) (test code = 346) 84 U/L 40-150 AST (SGOT) (BEAKER) (test code = 353) 33 U/L 5-34 ALT (SGPT) (BEAKER) (test code = 347) 22 U/L 6-55 Sour Bleaching Pleater HUSSEIN GORE LCBC (HEMOGRAM ONLY)2019-09-03 05:52:00* Test Item Value Reference Range Interpretation Comments WHITE BLOOD CELL COUNT (BEAKER) (test code = 775) 11.8 K/ L 3.5- 10.5 H RED BLOOD CELL COUNT (BEAKER) (test code = 761) 4.47 M/ L 4.63-6 .08 L HEMOGLOBIN (BEAKER) (test code = 410) 12.0 GM/DL 13.7-17.5 L HEMATOCRIT (BEAKER) (test code = 411) 38.7 % 40.1-51.0 L MEAN CORPUSCULAR VOLUME (BEAKER) (test code = 753) 86.6 fL 79. 0-92.2 MEAN CORPUSCULAR HEMOGLOBIN (BEAKER) (test code = 751) 26.8 pg 25.7-32.2 MEAN CORPUSCULAR HEMOGLOBIN CONC (BEAKER) (test code = 752) 31.0 GM/DL 32.3-36.5 L RED CELL DISTRIBUTION WIDTH (BEAKER) (test code = 412) 16.0 % 11.6-14.4 H PLATELET COUNT (BEAKER) (test code = 756) 283 K/CU MM 150-450 MEAN PLATELET VOLUME (BEAKER) (test code = 754) 12.6 fL 9.4-12 .4 H NUCLEATED RED BLOOD CELLS (BEAKER) (test code = 413) 0 /100 WBC 0 -0 Blood gas, [id number] 05:28:00* Test Item Value Reference Range Interpretation Comments pH, Arterial (test code = 2744-1) 7.53 7.35-7.45 H pCO2, Arterial (test code = 2019-8) 51 35- 45 mmHg H pO2, Arterial (test code = 2703-7) 147 80- 90 mmHg H O2 Sat, Arterial (test code = 2708-6) 99.1 % 96-97 H HCO3, Arterial (test code = 1960-4) 42 mmol/L 21-29 HH Base Excess, Arterial (test code = 1925-7) 17.1 mmol/L -2-3 H Patient Temperature (test code = 8310-5) 37.0 C FIO2 (test code = 1819) 35 % Lab Interpretation (test code = 00266-6) [facility]normal [facility] [id number] 05:28:00* Test Item Value Reference Range Interpretation Comments PH ARTERIAL (BEAKER) (test code = 383) 7.53 7.35-7.45 H PCO2 ARTERIAL (BEAKER) (test code = 384) 51 mmHg 35-45 H PO2 ARTERIAL (BEAKER) (test code = 385) 147 mmHg 80-90 H O2 SATURATION ARTERIAL (BEAKER) (test code = 386) 99.1 % 96.0 -97.0 H HCO3 ARTERIAL (BEAKER) (test code = 388) 42 mmol/L 21-29 HH BASE EXCESS ARTERIAL (BEAKER) (test code = 387) 17.1 mmol/L -2.0-3 .0 H PATIENT TEMPERATURE (BEAKER) (test code = 1818) 37.0 C FIO2 (BEAKER) (test code = 1819) 35.0 % RAD, CHEST, 1 VIEW, NON [id number] 05:00:00Reason for exam:->hypercarbic respiratory insufficiencyShould this be performed at the bedside?->YesFINAL REPORT CLINICAL INDICATION: Respiratory insufficiency Comparison: 09/02/2019 The cardiomediastinal contours are stable. Central pul monary vascular prominence and bilateral parenchymal and pleural opacities are u nchanged. There is no pneumothorax. Signed: Belinda Ravi MDReport Verified Date /Time: 09/03/2019 05:00:32 [id number] 18:13:00* Test Item Value Reference Range Interpretation Comments PHOSPHORUS (BEAKER) (test code = 604) 4.3 mg/dL 2.3-4.7 Sour Bleaching Pleater HUSSEIN CAICEDO [id number] 18:13:00* Test Item Value Reference Range Interpretation Comments MAGNESIUM (BEAKER) (test code = 627) 2.4 mg/dL 1.6-2.6 Sour Bleaching Pleater HUSSEIN CAICEDO WBASIC METABOLIC [id number] 18:13:00* Test Item Value Reference Range Interpretation Comments SODIUM (BEAKER) (test code = 381) 138 meq/L 136-145 POTASSIUM (BEAKER) (test code = 379) 3.5 meq/L 3.5-5.1 CHLORIDE (BEAKER) (test code = 382) 86 meq/L 98-107 L CO2 (BEAKER) (test code = 355) 39 meq/L 22-29 H BLOOD UREA NITROGEN (BEAKER) (test code = 354) 30 mg/dL 7-21 H CREATININE (BEAKER) (test code = 358) 2.80 mg/dL 0.57-1.25 H GLUCOSE RANDOM (BEAKER) (test code = 652) 81 mg/dL 70-105 CALCIUM (BEAKER) (test code = 697) 9.4 mg/dL 8.4-10.2 EGFR (BEAKER) (test code = 1092) 22 mL/min/1.73 sq m ESTIMATED GFR IS NOT ACCURATE CREATININE CLEARANCE IN PREDICTING GLOMERULAR FILTRATION RATE. ESTIMATED GFR IS NOT APPLICABLE FOR DIALYSIS PATIENTS. Sour Bleaching Pleater HUSSEIN MCQUEENLOOD GAS, [id number] 17:20:00* Test Item Value Reference Range Interpretation Comments PH ARTERIAL (BEAKER) (test code = 383) 7.57 7.35-7.45 H PCO2 ARTERIAL (BEAKER) (test code = 384) 44 mmHg 35-45 PO2 ARTERIAL (BEAKER) (test code = 385) 100 mmHg 80-90 H O2 SATURATION ARTERIAL (BEAKER) (test code = 386) 98.3 % 96.0 -97.0 H HCO3 ARTERIAL (BEAKER) (test code = 388) 40 mmol/L 21-29 HH BASE EXCESS ARTERIAL (BEAKER) (test code = 387) 16.0 mmol/L -2.0-3 .0 H PATIENT TEMPERATURE (BEAKER) (test code = 1818) 36.5 C FIO2 (BEAKER) (test code = 1819) 32.0 % Stool culture + Shiga [id number] 14:15:00* Test Item Value Reference Range Interpretation Comments Result (test code = 6463-4) No Salmonella, Shigella or Campyloba cter isolated [facility] PATH [id number] 14:15:00* Test Item Value Reference Range Interpretation Comments Pathogen exam charged (test code = 2381) Done [facility] CULTURE + SHIGA [id number] 14:15:00* Test Item Value Reference Range Interpretation Comments CULTURE (BEAKER) (test code = 1095) No Salmonella, Brandee gella or Campylobacter isolated [facility] PATH [id number] 14:15:00* Test Item Value Reference Range Interpretation Comments PATHOGEN EXAM CHARGED (BEAKER) (test code = 2381) Done RAD, CHEST, 1 VIEW, NON [id number] 09:42:00Reason for exam:->hypercarbic respiratory insufficiencyShould this be performed at the bedside?->YesFINAL REPORT Chest, one view History: Respiratory insufficiency Comparison: 09/01/2019 Findings:Hazy bibasilar opacities are noted, likely posterior layering pleural effusions. No significant change from previous study. No new pulmonary opacity is seen. The cardiac silhouette is mildly prominent. No pneumothorax is appreciated. Impression:No significant interval change. Mickie d: Jenaro Lee MDReport Verified Date/Time: 09/02/2019 09:42:56 Reading Loc ation: [facility] B1 [id number] Ortho Consult Reading Room C METABOLIC [id number] 04:22:00 * Test Item Value Reference Range Interpretation Comments SODIUM (BEAKER) (test code = 381) 138 meq/L 136-145 POTASSIUM (BEAKER) (test code = 379) 3.4 meq/L 3.5-5.1 L Specimen slightly hemolyzed CHLORIDE (BEAKER) (test code = 382) 86 meq/L 98-107 L CO2 (BEAKER) (test code = 355) 39 meq/L 22-29 H BLOOD UREA NITROGEN (BEAKER) (test code = 354) 25 mg/dL 7-21 H CREATININE (BEAKER) (test code = 358) 2.30 mg/dL 0.57-1.25 H Specimen slightly hemolyzed GLUCOSE RANDOM (BEAKER) (test code = 652) 83 mg/dL 70-105 CALCIUM (BEAKER) (test code = 697) 9.5 mg/dL 8.4-10.2 EGFR (BEAKER) (test code = 1092) 27 mL/min/1.73 sq m ESTIMATED GFR IS NOT ACCURATE CREATININE CLEARANCE IN PREDICTING GLOMERULAR FILTRATION RATE. ESTIMATED GFR IS NOT APPLICABLE FOR DIALYSIS PATIENTS. Sour Bleaching Pleater ID Mannie GORE [id number] 04:20:00* Test Item Value Reference Range Interpretation Comments MAGNESIUM (BEAKER) (test code = 627) 2.4 mg/dL 1.6-2.6 Specimen slightly hemolyzed Sour Bleaching Pleater HUSSEIN GORE [id number] 04:20:00* Test Item Value Reference Range Interpretation Comments PHOSPHORUS (BEAKER) (test code = 604) 3.8 mg/dL 2.3-4.7 Specimen slightly hemolyzed Sour Bleaching Pleater HUSSEIN GORE LCBC (HEMOGRAM ONLY)2019-09-02 03:57:00* Test Item Value Reference Range Interpretation Comments WHITE BLOOD CELL COUNT (BEAKER) (test code = 775) 9.4 K/ L 3.5- 10.5 RED BLOOD CELL COUNT (BEAKER) (test code = 761) 4.22 M/ L 4.63-6 .08 L HEMOGLOBIN (BEAKER) (test code = 410) 11.8 GM/DL 13.7-17.5 L HEMATOCRIT (BEAKER) (test code = 411) 36.8 % 40.1-51.0 L MEAN CORPUSCULAR VOLUME (BEAKER) (test code = 753) 87.2 fL 79. 0-92.2 MEAN CORPUSCULAR HEMOGLOBIN (BEAKER) (test code = 751) 28.0 pg 25.7-32.2 MEAN CORPUSCULAR HEMOGLOBIN CONC (BEAKER) (test code = 752) 32.1 GM/DL 32.3-36.5 L RED CELL DISTRIBUTION WIDTH (BEAKER) (test code = 412) 15.9 % 11.6-14.4 H PLATELET COUNT (BEAKER) (test code = 756) 255 K/CU MM 150-450 MEAN PLATELET VOLUME (BEAKER) (test code = 754) 12.0 fL 9.4-12 .4 NUCLEATED RED BLOOD CELLS (BEAKER) (test code = 413) 0 /100 WBC 0 -0 BLOOD GAS, [id number] 03:56:00* Test Item Value Reference Range Interpretation Comments PH VENOUS (BEAKER) (test code = 701) 7.48 7.32-7.42 H PCO2 VENOUS (BEAKER) (test code = 755) 61 mmHg 41-51 H PO2 VENOUS (BEAKER) (test code = 702) 44 mmHg 25-40 H O2 SATURATION VENOUS (BEAKER) (test code = 703) 80.3 % 40.0-7 0.0 H HCO3 VENOUS (BEAKER) (test code = 705) 44 mmol/L 21-29 HH BASE EXCESS VENOUS (BEAKER) (test code = 704) 17.5 mmol/L -2.0-3.0 H PATIENT TEMPERATURE (BEAKER) (test code = 1818) 37.5 C FIO2 (BEAKER) (test code = 1819) 60.0 % CALCIUM, [id number] 03:55:00* Test Item Value Reference Range Interpretation Comments CALCIUM IONIZED (BEAKER) (test code = 698) 1.14 mmol/L 1.12-1.27 PH, BLOOD (BEAKER) (test code = 1810) 7.48 BLOOD GAS, [id number] 19:49:00* Test Item Value Reference Range Interpretation Comments PH VENOUS (BEAKER) (test code = 701) 7.48 7.32-7.42 H PCO2 VENOUS (BEAKER) (test code = 755) 65 mmHg 41-51 H PO2 VENOUS (BEAKER) (test code = 702) 24 mmHg 25-40 L O2 SATURATION VENOUS (BEAKER) (test code = 703) 48.2 % 40.0-7 0.0 HCO3 VENOUS (BEAKER) (test code = 705) 48 mmol/L 21-29 HH BASE EXCESS VENOUS (BEAKER) (test code = 704) 20.3 mmol/L -2.0-3.0 H PATIENT TEMPERATURE (BEAKER) (test code = 1818) 35.8 C FIO2 (BEAKER) (test code = 1819) 60.0 % BLOOD GAS, [id number] 18:04:00* Test Item Value Reference Range Interpretation Comments PH VENOUS (BEAKER) (test code = 701) 7.49 7.32-7.42 H PCO2 VENOUS (BEAKER) (test code = 755) 60 mmHg 41-51 H PO2 VENOUS (BEAKER) (test code = 702) 38 mmHg 25-40 O2 SATURATION VENOUS (BEAKER) (test code = 703) 74.8 % 40.0-7 0.0 H HCO3 VENOUS (BEAKER) (test code = 705) 45 mmol/L 21-29 HH BASE EXCESS VENOUS (BEAKER) (test code = 704) 18.1 mmol/L -2.0-3.0 H PATIENT TEMPERATURE (BEAKER) (test code = 1818) 37.0 C FIO2 (BEAKER) (test code = 1819) 21.0 % [id number] 17:10:00* Test Item Value Reference Range Interpretation Comments MAGNESIUM (BEAKER) (test code = 627) 2.4 mg/dL 1.6-2.6 Specimen slightly hemolyzed Sour Bleaching Pleater ID - [id number] 17:10:00* Test Item Value Reference Range Interpretation Comments POTASSIUM (BEAKER) (test code = 379) 4.0 meq/L 3.5-5.1 Specimen slightly hemolyzed Sour Bleaching Pleater ID - DBCALCIUM, [id number] 17:02:00* Test Item Value Reference Range Interpretation Comments CALCIUM IONIZED (BEAKER) (test code = 698) 1.08 mmol/L 1.12-1.27 L PH, BLOOD (BEAKER) (test code = 1810) 7.46 Check serum Ionized Calcium level after 4 hours after IV Calcium replacement. Shiga Toxin [id number] 14:58:00* Test Item Value Reference Range Interpretation Comments Shiga toxin 1 (test code = 54815-7) Not detected Not detected Shiga toxin 2 (test code = 49395-0) Not detected Not detected Lab Interpretation (test code = 64332-7) [facility] [id number] 14:58:00* Test Item Value Reference Range Interpretation Comments SHIGA TOXIN 1 (BEAKER) (test code = 2177) Not detected Not detected SHIGA TOXIN 2 (BEAKER) (test code = 2179) Not detected Not detected [id number] 12:07:00* Test Item Value Reference Range Interpretation Comments MAGNESIUM (BEAKER) (test code = 627) 2.6 mg/dL 1.6-2.6 Specimen slightly hemolyzed Sour Bleaching Pleater ID - SASCHA [id number] 12:07:00* Test Item Value Reference Range Interpretation Comments POTASSIUM (BEAKER) (test code = 379) 3.3 meq/L 3.5-5.1 L Specimen slightly hemolyzed Sour Bleaching Pleater ID - SASCHA WCALCIUM, [id number] 11:36:00* Test Item Value Reference Range Interpretation Comments CALCIUM IONIZED (BEAKER) (test code = 698) 1.09 mmol/L 1.12-1.27 L PH, BLOOD (BEAKER) (test code = 1810) 7.52 Check serum Ionized Calcium level after 4 hours after IV Calcium replacement. [id number] 05:50:00* Test Item Value Reference Range Interpretation Comments MAGNESIUM (BEAKER) (test code = 627) 2.2 mg/dL 1.6-2.6 Specimen slightly hemolyzed Sour Bleaching Pleater ID - HUNTER [id number] 05:50:00* Test Item Value Reference Range Interpretation Comments PHOSPHORUS (BEAKER) (test code = 604) 2.3 mg/dL 2.3-4.7 Specimen slightly hemolyzed Sour Bleaching Pleater ID - HUNTER MBASIC METABOLIC [id number] 05:50:00* Test Item Value Reference Range Interpretation Comments SODIUM (BEAKER) (test code = 381) 136 meq/L 136-145 POTASSIUM (BEAKER) (test code = 379) 3.5 meq/L 3.5-5.1 Specimen slightly hemolyzed CHLORIDE (BEAKER) (test code = 382) 84 meq/L 98-107 L CO2 (BEAKER) (test code = 355) 38 meq/L 22-29 H BLOOD UREA NITROGEN (BEAKER) (test code = 354) 18 mg/dL 7-21 CREATININE (BEAKER) (test code = 358) 1.78 mg/dL 0.57-1.25 H Specimen slightly hemolyzed GLUCOSE RANDOM (BEAKER) (test code = 652) 101 mg/dL 70-105 CALCIUM (BEAKER) (test code = 697) 9.4 mg/dL 8.4-10.2 EGFR (BEAKER) (test code = 1092) 37 mL/min/1.73 sq m ESTIMATED GFR IS NOT ACCURATE CREATININE CLEARANCE IN PREDICTING GLOMERULAR FILTRATION RATE. ESTIMATED GFR IS NOT APPLICABLE FOR DIALYSIS PATIENTS. Sour Bleaching Pleater ID - HUNTER MCALCIUM, [id number] 05:31:00* Test Item Value Reference Range Interpretation Comments CALCIUM IONIZED (BEAKER) (test code = 698) 0.77 mmol/L 1.12-1.27 LL PH, BLOOD (BEAKER) (test code = 1810) 7.48 CBC (HEMOGRAM ONLY)2019-09-01 05:26:00* Test Item Value Reference Range Interpretation Comments WHITE BLOOD CELL COUNT (BEAKER) (test code = 775) 13.2 K/ L 3.5- 10.5 H RED BLOOD CELL COUNT (BEAKER) (test code = 761) 4.47 M/ L 4.63-6 .08 L HEMOGLOBIN (BEAKER) (test code = 410) 12.6 GM/DL 13.7-17.5 L HEMATOCRIT (BEAKER) (test code = 411) 38.5 % 40.1-51.0 L MEAN CORPUSCULAR VOLUME (BEAKER) (test code = 753) 86.1 fL 79. 0-92.2 MEAN CORPUSCULAR HEMOGLOBIN (BEAKER) (test code = 751) 28.2 pg 25.7-32.2 MEAN CORPUSCULAR HEMOGLOBIN CONC (BEAKER) (test code = 752) 32.7 GM/DL 32.3-36.5 RED CELL DISTRIBUTION WIDTH (BEAKER) (test code = 412) 16.1 % 11.6-14.4 H PLATELET COUNT (BEAKER) (test code = 756) 325 K/CU MM 150-450 MEAN PLATELET VOLUME (BEAKER) (test code = 754) 12.5 fL 9.4-12 .4 H NUCLEATED RED BLOOD CELLS (BEAKER) (test code = 413) 0 /100 WBC 0 -0 RAD, CHEST, 1 VIEW, NON [id number] 02:57:00Reason for exam:->respiratory insufficiencyShould this be performed at the bedside?->YesFINAL REPORT CLINICAL INDICATION: Respiratory insufficiency Comparison: 08/31/2019 The cardiomediastinal contours are stable. Central pulmonary vascular congestion and bilateral parenchymal and pleural opacities are similar within variation of acquisition technique. There is no pneumothorax. Signed: Belinda Ravi MDReport Verified Date/Time: 09/01/2019 02:57:44 [id number] 23:14:00* Test Item Value Reference Range Interpretation Comments MAGNESIUM (BEAKER) (test code = 627) 2.3 mg/dL 1.6-2.6 Specimen moderately hemolyzed Sour Bleaching Pleater ID - PIAYA LBASIC METABOLIC [id number] 23:14:00* Test Item Value Reference Range Interpretation Comments SODIUM (BEAKER) (test code = 381) 135 meq/L 136-145 L POTASSIUM (BEAKER) (test code = 379) 3.7 meq/L 3.5-5.1 Specimen moderately hemolyzed CHLORIDE (BEAKER) (test code = 382) 84 meq/L 98-107 L CO2 (BEAKER) (test code = 355) 37 meq/L 22-29 H BLOOD UREA NITROGEN (BEAKER) (test code = 354) 18 mg/dL 7-21 CREATININE (BEAKER) (test code = 358) 1.67 mg/dL 0.57-1.25 H Specimen moderately hemolyzed GLUCOSE RANDOM (BEAKER) (test code = 652) 141 mg/dL 70-105 H CALCIUM (BEAKER) (test code = 697) 9.4 mg/dL 8.4-10.2 EGFR (BEAKER) (test code = 1092) 39 mL/min/1.73 sq m ESTIMATED GFR IS NOT ACCURATE CREATININE CLEARANCE IN PREDICTING GLOMERULAR FILTRATION RATE. ESTIMATED GFR IS NOT APPLICABLE FOR DIALYSIS PATIENTS. Sour Bleaching Pleater ID - PIAYA LCALCIUM, [id number] 22:51:00* Test Item Value Reference Range Interpretation Comments CALCIUM IONIZED (BEAKER) (test code = 698) 1.12 mmol/L 1.12-1.27 PH, BLOOD (BEAKER) (test code = 1810) 7.44 CT, CHEST, WITH [id number] 17:17:00FINAL REPORT TECHNIQUE: CT of the chest, abdomen, and pelvis WITH intravenous contrast and WITHOUT oral contrast. Dose modulation, iterative reconstruction, and/or weight- based adjustment of the mA/kV was utilized to reduce the radiation dose to as low as reasonably achievable. INDICATION: Pericardial effusion. Obstructive pulmonary disease, acute respiratory insufficiency. Evaluate for malignancy COMPARISON: None. FINDINGS: LINES/TUBES: None. LUNGS AND AIRWAYS: There are multiple tree-in-bud opacities of the anterior right upper lobe. Near complete collapse of both lower lobes. Multiple calcified granulomas in both lower lobes.PLEURA: Moderate sized bilateral pleural effusions.HEART AND MEDIASTINUM: The visualized thyroid gland is normal. No significant mediastinal, hilar, or axillary lymphadenopathy. Device in the left atrial appendage. Marked coronary arterial calcifications. The left atrium is dilated. Moderate calcification of the thoracic aorta. Small pericardial effusion. HEPATOBILIARY: No focal hepatic lesions. Prior cholecystomy. No biliary ductal dilatation.SPLEEN: No s plenomegaly.PANCREAS: No focal masses or ductal dilatation. Hypodensity in the p ancreatic body measures 0.6 cm on axial image 63. ADRENALS: No adrenal nodules.K IDNEYS/URETERS: Mild right hydronephrosis. There is hydroureter to the level of the right common iliac artery. The ureters likely compressed between the artery and the bladder at this level. No stones or masses. A left lower pole simple jayne al cyst measures 0.5 cm.PELVIC ORGANS/BLADDER: The bladder is distended. Prior T URP. PERITONEUM/RETROPERITONEUM: No free air or fluid.LYMPH NODES: No lymphadeno jm.VESSELS: Marked calcification of the aortoiliac vasculature. GI TRACT: No distention or wall thickening. Mild diverticulosis of the sigmoid colon. BONES A ND SOFT TISSUES: Small-volume subcutaneous gas in the left upper chest subcutane ous tissues. Subacute, healing left posterior ninth and 10th rib fractures. Old, healed posterior eighth and 11th rib fractures. The bones are diffusely deminer alized. Intramedullary mckenzie in the right proximal femur. Severe degenerative disc changes of the lumbar spine. There is a soft tissue structure retracted into th e right ankle. This may be atrophic testicle but is indeterminate. IMPRESSION: 1 .No definite findings of malignancy in the chest, abdomen, or pelvis. 2.The tree -in-bud opacities of the anterior right upper lobe are concerning for infection. 3.There is a soft tissue structure retracted into the right inguinal canal. Thi s may be an atrophic testicle. However, further evaluation with physical examina tion is recommended. 4.There is mild right hydronephrosis with a transition of t he ureter at the iliac vasculature where a distended bladder likely compresses t he ureter. 5.Small pericardial effusion. 6.Moderate sized bilateral pleural effu sions with near complete collapse of both lower lobes. 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 No ductal dilation to suggest malignant transformat ion. A follow-up MRI of the abdomen with and without intravenous contrast with M STUDENT is recommended in one year to document stability. 8.The subcutaneous gas in the left upper chest is a nonspecific finding. Signed: Shoaib Shields MDReport Verif ied Date/Time: 08/31/2019 17:17:48 Reading Location: [facility] [place] [address] , [id number] 17:17:00FINAL REPORT TECHNIQUE: CT of the chest, abdomen, [...] lobes. Multiple calcified granulomas in both lower lobes.PLEURA: Moderate sized bilateral pleural effusions.HEART AND MEDIASTINUM: The visualized thyroid gland is normal. No significant mediastinal, hilar, or axillary lymphadenopathy. Device in the left atrial appendage. Marked coronary arterial calcifications. The left atrium is dilated. Moderate calcifi cation of the thoracic aorta. Small pericardial effusion. HEPATOBILIARY: No foca l hepatic lesions. Prior cholecystomy. No biliary ductal dilatation.SPLEEN: No s plenomegaly.PANCREAS: No focal masses or ductal dilatation. Hypodensity in the p ancreatic body measures 0.6 cm on axial image 63. ADRENALS: No adrenal nodules.K IDNEYS/URETERS: Mild right hydronephrosis. There is hydroureter to the level of the right common iliac artery. The ureters likely compressed between the artery and the bladder at this level. No stones or masses. A left lower pole simple ajyne al cyst measures 0.5 cm.PELVIC ORGANS/BLADDER: The bladder is distended. Prior T URP. PERITONEUM/RETROPERITONEUM: No free air or fluid.LYMPH NODES: No lymphadeno jm.VESSELS: Marked calcification of the aortoiliac vasculature. GI TRACT: No distention or wall thickening. Mild diverticulosis of the sigmoid colon. BONES A ND SOFT TISSUES: Small-volume subcutaneous gas in the left upper chest subcutane ous tissues. Subacute, healing left posterior ninth and 10th rib fractures. Old, healed posterior eighth and 11th rib fractures. The bones are diffusely deminer alized. Intramedullary mckenzie in the right proximal femur. Severe degenerative disc changes of the lumbar spine. There is a soft tissue structure retracted into th e right ankle. This may be atrophic testicle but is indeterminate. IMPRESSION: 1 .No definite findings of malignancy in the chest, abdomen, or pelvis. 2.The tree -in-bud opacities of the anterior right upper lobe are concerning for infection. 3.There is a soft tissue structure retracted into the right inguinal canal. Thi s may be an atrophic testicle. However, further evaluation with physical examina tion is recommended. 4.There is mild right hydronephrosis with a transition of t he ureter at the iliac vasculature where a distended bladder likely compresses t he ureter. 5.Small pericardial effusion. 6.Moderate sized bilateral pleural effu sions with near complete collapse of both lower lobes. 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 No ductal dilation to suggest malignant transformat ion. A follow-up MRI of the abdomen with and without intravenous contrast with M STUDENT is recommended in one year to document stability. 8.The subcutaneous gas in the left upper chest is a nonspecific finding. Signed: Shoaib Shields MDReport Verif ied Date/Time: 08/31/2019 17:17:48 Reading Location: [facility] Diagnostic Imaging Re ading Room - [place] [address] [id number] chest with IV [id number] 17:17:00Interface, External Ris In - 08/31/2019 5:19 PM CDTFINAL REPORT TECHNIQUE: CT of the chest, abdomen, and pelvis WITH intravenous contrast and WITHOUT oral contrast. Dose modulation, iterative reconstruction, and/or weight- based adjustment of the mA/kV was utilized to reduce the radiation dose to as low as reasonably achievable. INDICATION: Pericardial effusion. Obstructive pulmonary disease, acute respiratory insufficiency. Evaluate for malignancy COMP ARISON: None. FINDINGS: LINES/TUBES: None. LUNGS AND AIRWAYS: There are multipl e tree-in-bud opacities of the anterior right upper lobe. Near complete collapse of both lower lobes. Multiple calcified granulomas in both lower lobes.PLEURA: Moderate sized bilateral pleural effusions.HEART AND MEDIASTINUM: The visualized thyroid gland is normal. No significant mediastinal, hilar, or axillary lymphad enopathy. Device in the left atrial appendage. Marked coronary arterial calcific ations. The left atrium is dilated. Moderate calcification of the thoracic aorta . Small pericardial effusion. HEPATOBILIARY: No focal hepatic lesions. Prior cho lecystomy. No biliary ductal dilatation.SPLEEN: No splenomegaly.PANCREAS: No foc al masses or ductal dilatation. Hypodensity in the pancreatic body measures 0.6 cm on axial image 63. ADRENALS: No adrenal nodules.KIDNEYS/URETERS: Mild right h ydronephrosis. There is hydroureter to the level of the right common iliac arter y. The ureters likely compressed between the artery and the bladder at this leve l. No stones or masses. A left lower pole simple renal cyst measures 0.5 cm.PELV IC ORGANS/BLADDER: The bladder is distended. Prior TURP. PERITONEUM/RETROPERITON EUM: No free air or fluid.LYMPH NODES: No lymphadenopathy.VESSELS: Marked calcif ication of the aortoiliac vasculature. GI TRACT: No distention or wall thickenin g. Mild diverticulosis of the sigmoid colon. BONES AND SOFT TISSUES: Small-volum e subcutaneous gas in the left upper chest subcutaneous tissues. Subacute, heali ng left posterior ninth and 10th rib fractures. Old, healed posterior eighth and 11th rib fractures. The bones are diffusely demineralized. Intramedullary mckenzie i n the right proximal femur. Severe degenerative disc changes of the lumbar spine . There is a soft tissue structure retracted into the right ankle. This may be a trophic testicle but is indeterminate. IMPRESSION: 1.No definite findings of mal ignancy in the chest, abdomen, or pelvis. 2.The tree-in-bud opacities of the ant erior right upper lobe are concerning for infection. 3.There is a soft tissue st ructure retracted into the right inguinal canal. This may be an atrophic testicl e. However, further evaluation with physical examination is recommended. 4.There is mild right hydronephrosis with a transition of the ureter at the iliac vascu lature where a distended bladder likely compresses the ureter. 5.Small pericardi al effusion. 6.Moderate sized bilateral pleural effusions with near complete col lapse of both lower lobes. 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 No ductal dilation to suggest malignant transformation. A follow-up MRI of the abdomen with and without intravenous contrast with MRCP is recommended in one ye ar to document stability. 8.The subcutaneous gas in the left upper chest is a no nspecific finding. Signed: Shoaib Shields MDReport Verified Date/Time: 08/31/2019 1 7:17:48 Reading Location: [facility] Diagnostic Imaging Reading Room - [place] [address] [facility] [id number] 17:17:00 Interface, External Ris In - 08/31/2019 5:19 PM CDTFINAL REPORT PATIENT ID: [id number] TECHNIQUE: CT of the chest, abdomen, and pelvis WITH intravenous contras t and WITHOUT oral contrast. Dose modulation, iterative reconstruction, and/or w eight-based adjustment of the mA/kV was utilized to reduce the radiation dose to as low as reasonably achievable. INDICATION: Pericardial effusion. Obstructive pulmonary disease, acute respiratory insufficiency. Evaluate for malignancy COMP ARISON: None. FINDINGS: LINES/TUBES: None. LUNGS AND AIRWAYS: There are multipl e tree-in-bud opacities of the anterior right upper lobe. Near complete collapse of both lower lobes. Multiple calcified granulomas in both lower lobes.PLEURA: Moderate sized bilateral pleural effusions.HEART AND MEDIASTINUM: The visualized thyroid gland is normal. No significant mediastinal, hilar, or axillary lymphad enopathy. Device in the left atrial appendage. Marked coronary arterial calcific ations. The left atrium is dilated. Moderate calcification of the thoracic aorta . Small pericardial effusion. HEPATOBILIARY: No focal hepatic lesions. Prior cho lecystomy. No biliary ductal dilatation.SPLEEN: No splenomegaly.PANCREAS: No foc al masses or ductal dilatation. Hypodensity in the pancreatic body measures 0.6 cm on axial image 63. ADRENALS: No adrenal nodules.KIDNEYS/URETERS: Mild right h ydronephrosis. There is hydroureter to the level of the right common iliac arter y. The ureters likely compressed between the artery and the bladder at this leve l. No stones or masses. A left lower pole simple renal cyst measures 0.5 cm.PELV IC ORGANS/BLADDER: The bladder is distended. Prior TURP. PERITONEUM/RETROPERITON EUM: No free air or fluid.LYMPH NODES: No lymphadenopathy.VESSELS: Marked calcif ication of the aortoiliac vasculature. GI TRACT: No distention or wall thickenin g. Mild diverticulosis of the sigmoid colon. BONES AND SOFT TISSUES: Small-volum e subcutaneous gas in the left upper chest subcutaneous tissues. Subacute, heali ng left posterior ninth and 10th rib fractures. Old, healed posterior eighth and 11th rib fractures. The bones are diffusely demineralized. Intramedullary mckenzie i n the right proximal femur. Severe degenerative disc changes of the lumbar spine . There is a soft tissue structure retracted into the right ankle. This may be a trophic testicle but is indeterminate. IMPRESSION: 1.No definite findings of mal ignancy in the chest, abdomen, or pelvis. 2.The tree-in-bud opacities of the ant erior right upper lobe are concerning for infection. 3.There is a soft tissue st ructure retracted into the right inguinal canal. This may be an atrophic testicl e. However, further evaluation with physical examination is recommended. 4.There is mild right hydronephrosis with a transition of the ureter at the iliac vascu lature where a distended bladder likely compresses the ureter. 5.Small pericardi al effusion. 6.Moderate sized bilateral pleural effusions with near complete col lapse of both lower lobes. 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 No ductal dilation to suggest malignant transformation. A follow-up MRI of the abdomen with and without intravenous contrast with MRCP is recommended in one ye ar to document stability. 8.The subcutaneous gas in the left upper chest is a no nspecific finding. Signed: Shoaib Shields MDReport Verified Date/Time: 08/31/2019 1 7:17:48 Reading Location: [facility] Diagnostic Imaging Reading Room - [place] [address] [facility] 13:26:00* Test Item Value Reference Range Interpretation Comments MAGNESIUM (BEAKER) (test code = 627) 2.2 mg/dL 1.6-2.6 Specimen moderately hemolyzed Sour Bleaching Pleater ID - [id number] 13:26:00* Test Item Value Reference Range Interpretation Comments POTASSIUM (BEAKER) (test code = 379) 3.6 meq/L 3.5-5.1 Specimen moderately hemolyzed Sour Bleaching Pleater ID - [id number] 05:33:00* Test Item Value Reference Range Interpretation Comments MAGNESIUM (BEAKER) (test code = 627) 1.9 mg/dL 1.6-2.6 Specimen slightly hemolyzed Sour Bleaching Pleater ID - JERRI [id number] 05:33:00* Test Item Value Reference Range Interpretation Comments PHOSPHORUS (BEAKER) (test code = 604) 2.2 mg/dL 2.3-4.7 L Specimen slightly hemolyzed Sour Bleaching Pleater ID - JERRI WBASIC METABOLIC [id number] 05:33:00* Test Item Value Reference Range Interpretation Comments SODIUM (BEAKER) (test code = 381) 136 meq/L 136-145 POTASSIUM (BEAKER) (test code = 379) 3.8 meq/L 3.5-5.1 Specimen slightly hemolyzed CHLORIDE (BEAKER) (test code = 382) 90 meq/L 98-107 L CO2 (BEAKER) (test code = 355) 35 meq/L 22-29 H BLOOD UREA NITROGEN (BEAKER) (test code = 354) 14 mg/dL 7-21 CREATININE (BEAKER) (test code = 358) 1.19 mg/dL 0.57-1.25 Specimen slightly hemolyzed GLUCOSE RANDOM (BEAKER) (test code = 652) 105 mg/dL 70-105 CALCIUM (BEAKER) (test code = 697) 8.7 mg/dL 8.4-10.2 EGFR (BEAKER) (test code = 1092) 58 mL/min/1.73 sq m ESTIMATED GFR IS NOT ACCURATE CREATININE CLEARANCE IN PREDICTING GLOMERULAR FILTRATION RATE. ESTIMATED GFR IS NOT APPLICABLE FOR DIALYSIS PATIENTS. Sour Bleaching Pleater ID - JERRI WCBC W/PLT COUNT & AUTO [id number] 05:23:00* Test Item Value Reference Range Interpretation Comments WHITE BLOOD CELL COUNT (BEAKER) (test code = 775) 14.9 K/ L 3.5- 10.5 H RED BLOOD CELL COUNT (BEAKER) (test code = 761) 4.47 M/ L 4.63-6 .08 L HEMOGLOBIN (BEAKER) (test code = 410) 11.9 GM/DL 13.7-17.5 L HEMATOCRIT (BEAKER) (test code = 411) 38.9 % 40.1-51.0 L MEAN CORPUSCULAR VOLUME (BEAKER) (test code = 753) 87.0 fL 79. 0-92.2 MEAN CORPUSCULAR HEMOGLOBIN (BEAKER) (test code = 751) 26.6 pg 25.7-32.2 MEAN CORPUSCULAR HEMOGLOBIN CONC (BEAKER) (test code = 752) 30.6 GM/DL 32.3-36.5 L RED CELL DISTRIBUTION WIDTH (BEAKER) (test code = 412) 15.9 % 11.6-14.4 H PLATELET COUNT (BEAKER) (test code = 756) 301 K/CU MM 150-450 MEAN PLATELET VOLUME (BEAKER) (test code = 754) 11.8 fL 9.4-12 .4 NUCLEATED RED BLOOD CELLS (BEAKER) (test code = 413) 0 /100 WBC 0 -0 NEUTROPHILS RELATIVE PERCENT (BEAKER) (test code = 429) 86 % LYMPHOCYTES RELATIVE PERCENT (BEAKER) (test code = 430) 4 % MONOCYTES RELATIVE PERCENT (BEAKER) (test code = 431) 9 % EOSINOPHILS RELATIVE PERCENT (BEAKER) (test code = 432) 0 % BASOPHILS RELATIVE PERCENT (BEAKER) (test code = 437) 0 % NEUTROPHILS ABSOLUTE COUNT (BEAKER) (test code = 670) 12.81 K/ L 1.78-5.38 H LYMPHOCYTES ABSOLUTE COUNT (BEAKER) (test code = 414) 0.61 K/ L 1.32-3.57 L MONOCYTES ABSOLUTE COUNT (BEAKER) (test code = 415) 1.37 K/ L 0. 30-0.82 H EOSINOPHILS ABSOLUTE COUNT (BEAKER) (test code = 416) 0.00 K/ L 0.04-0.54 L BASOPHILS ABSOLUTE COUNT (BEAKER) (test code = 417) 0.01 K/ L 0. 01-0.08 IMMATURE GRANULOCYTES-RELATIVE PERCENT (BEAKER) (test code = 2801) 1 % 0-1 RAD, CHEST, 1 VIEW, NON [id number] 03:30:00Reason for exam:->respiratory insufficiencyShould this be performed at the bedside?->YesFINAL REPORT RAD, CHEST, 1 VIEW, NON DEPT INDICATION: respiratory insufficiency COMPARISON: Prior day's exam FINDINGS: Portable frontal view of the chest. IMPRESSION: Support Lines: Stable. Lungs and pleura: Unchanged airspace and pleural opacities. No pneumothorax.Heart and mediastinum: Stable contours. Additional findings: None. Signed: Gretta Lemus MDReport Verified Da te/Time: 08/31/2019 03:30:56 Vancomycin level, [id number] 11:24:00* Test Item Value Reference Range Interpretation Comments Vancomycin Tr (test code = 4092-3) 12.4 ug/mL 10-20 DUDLEY (test code = DUDLEY) Sour Bleaching Pleater ID - AAHAMID Lab Interpretation (test code = 12344-7) Normal [facility], [id number] 11:24:00* Test Item Value Reference Range Interpretation Comments VANCOMYCIN TROUGH (BEAKER) (test code = 522) 12.4 ug/mL 10.0-20.0 Sour Bleaching Pleater ID - AAHAMIDManual [id number] 09:10:00* Test Item Value Reference Range Interpretation Comments % Neutros (test code = 2816) 92 % % Lymphs (test code = 2817) 2 % % Monos (test code = 2818) 5 % % Eos (test code = 2819) 1 % # Neutros (test code = 2830) 15.82 K/ul 1.78-5.38 H # Lymphs (test code = 2831) 0.34 K/ul 1.32-3.57 L # Monos (test code = 2832) 0.86 K/uL 0.3-0.82 H # Eos (test code = 2834) 0.17 K/uL 0.04-0.54 Total Counted (test code = 1351) 100 Platelet Morphology (test code = 486) Normal Toxic Granulation (test code = 771) Present Polychromasia (test code = 478) 1+ few Hypochromia (test code = 963) 1+ few Anisocytosis (test code = 961) 1+ few Poikilocytes (test code = 966) 1+ few Wojciech Cells (test code = 474) 1+ few Artifact (test code = 3432) Present Platelet Conc (test code = 3438) Adequate DUDLEY (test code = DUDLEY) Sour Bleaching Pleater ID - [id number] Swain comments: Slide comments: Lab Interpretation (test code = 32271-0) Abnormal [facility] & AUTO [id number] 09:10:00* Test Item Value Reference Range Interpretation Comments WHITE BLOOD CELL COUNT (BEAKER) (test code = 775) 17.2 K/ L 3.5- 10.5 H RED BLOOD CELL COUNT (BEAKER) (test code = 761) 4.16 M/ L 4.63-6 .08 L HEMOGLOBIN (BEAKER) (test code = 410) 11.3 GM/DL 13.7-17.5 L HEMATOCRIT (BEAKER) (test code = 411) 36.1 % 40.1-51.0 L MEAN CORPUSCULAR VOLUME (BEAKER) (test code = 753) 86.8 fL 79. 0-92.2 MEAN CORPUSCULAR HEMOGLOBIN (BEAKER) (test code = 751) 27.2 pg 25.7-32.2 MEAN CORPUSCULAR HEMOGLOBIN CONC (BEAKER) (test code = 752) 31.3 GM/DL 32.3-36.5 L RED CELL DISTRIBUTION WIDTH (BEAKER) (test code = 412) 15.7 % 11.6-14.4 H PLATELET COUNT (BEAKER) (test code = 756) 266 K/CU MM 150-450 MEAN PLATELET VOLUME (BEAKER) (test code = 754) 12.7 fL 9.4-12 .4 H NUCLEATED RED BLOOD CELLS (BEAKER) (test code = 413) 0 /100 WBC 0 -0 (CELLAVISION MANUAL DIFF)2019-08-30 09:10:00* Test Item Value Reference Range Interpretation Comments NEUTROPHILS - REL (CELLAVISION)(BEAKER) (test code = 2816) 92 % LYMPHOCYTES - REL (CELLAVISION)(BEAKER) (test code = 2817) 2 % MONOCYTES - REL (CELLAVISION)(BEAKER) (test code = 2818) 5 % EOSINOPHILS - REL (CELLAVISION)(BEAKER) (test code = 2819) 1 % NEUTROPHILS - ABS (CELLAVISION)(BEAKER) (test code = 2830) 15.82 K/ul 1.78-5.38 H LYMPHOCYTES - ABS (CELLAVISION)(BEAKER) (test code = 2831) 0.34 K/ul 1.32-3.57 L MONOCYTES - ABS (CELLAVISION)(BEAKER) (test code = 2832) 0.86 K/uL 0.30-0.82 H EOSINOPHILS - ABS (CELLAVISION)(BEAKER) (test code = 2834) 0.17 K/uL 0.04-0.54 TOTAL COUNTED (BEAKER) (test code = 1351) 100 PLT MORPHOLOGY (BEAKER) (test code = 486) Normal TOXIC GRANULATION (BEAKER) (test code = 771) Present POLYCHROMATOPHILLIC RBCS(BEAKER) (test code = 478) 1+ few HYPOCHROMIA (BEAKER) (test code = 963) 1+ few ANISOCYTOSIS (BEAKER) (test code = 961) 1+ few POIKILOCYTES (BEAKER) (test code = 966) 1+ few WOJCIECH CELLS (BEAKER) (test code = 474) 1+ few ARTIFACT (CELLAVISION)(BEAKER) (test code = 3432) Present PLATELET CONCENTRATION (CELLAVISION)(BEAKER) (test code = 3438) Hawa quate Sour Bleaching Pleater ID - [id number] ID - Kristine Swain comments: Slide comments: MAGNESIUM 2019-08-30 04:52:00* Test Item Value Reference Range Interpretation Comments MAGNESIUM (BEAKER) (test code = 627) 1.9 mg/dL 1.6-2.6 Specimen slightly hemolyzed Sour Bleaching Pleater ID - JERRI [id number] 04:52:00* Test Item Value Reference Range Interpretation Comments PHOSPHORUS (BEAKER) (test code = 604) 2.8 mg/dL 2.3-4.7 Specimen slightly hemolyzed Sour Bleaching Pleater ID - JERRI WBASIC METABOLIC [id number] 04:52:00* Test Item Value Reference Range Interpretation Comments SODIUM (BEAKER) (test code = 381) 134 meq/L 136-145 L POTASSIUM (BEAKER) (test code = 379) 4.4 meq/L 3.5-5.1 Specimen slightly hemolyzed CHLORIDE (BEAKER) (test code = 382) 93 meq/L 98-107 L CO2 (BEAKER) (test code = 355) 31 meq/L 22-29 H BLOOD UREA NITROGEN (BEAKER) (test code = 354) 16 mg/dL 7-21 CREATININE (BEAKER) (test code = 358) 1.12 mg/dL 0.57-1.25 Specimen slightly hemolyzed GLUCOSE RANDOM (BEAKER) (test code = 652) 100 mg/dL 70-105 CALCIUM (BEAKER) (test code = 697) 8.3 mg/dL 8.4-10.2 L EGFR (BEAKER) (test code = 1092) 63 mL/min/1.73 sq m ESTIMATED GFR IS NOT ACCURATE CREATININE CLEARANCE IN PREDICTING GLOMERULAR FILTRATION RATE. ESTIMATED GFR IS NOT APPLICABLE FOR DIALYSIS PATIENTS. Sour Bleaching Pleater ID - JERRI WRAD, CHEST, 1 VIEW, NON [id number] 01:47:00Reason for exam:->respiratory insufficiencyShould this be performed at the bedside?->Yes FINAL REPORT RAD, CHEST, 1 VIEW, NON DEPT INDICATION: res piratory insufficiency COMPARISON: Prior day's exam FINDINGS: Portable frontal v iew of the chest. IMPRESSION: Support Lines: None Lungs and pleura: No signif icant change in extensive scattered airspace opacities and bilateral pleural eff usions. No pneumothorax.Heart and mediastinum: Stable contours. Additional fi ndings: None. Signed: Gretta Lemus MDReport Verified Date/Time: 08/30/2019 01:4 7:09 Lactic acid, [id number] 12:27:00* Test Item Value Reference Range Interpretation Comments Lactate, Venous (test code = 2872) 1.28 mmol/L 0.5-2.2 Specimen slightly hemolyzed DUDLEY (test code = DUDLEY) Sour Bleaching Pleater ID - JOSE L Pal Lab Interpretation (test code = 68555-6) [facility], [id number] 12:27:00* Test Item Value Reference Range Interpretation Comments LACTATE BLOOD VENOUS (2) (BEAKER) (test code = 2872) 1.28 mmol/L 0 .50-2.20 Specimen slightly hemolyzed Sour Bleaching Pleater ID - JOSE L M2D Echo W/Doppler(CW/PW/Color)2019-08-29 12:14:02Ejection FractionSLEH ECHO HEARTLAB MKCKESSON CPACSInterface, External Ris In - 08/29/2019 12:14 PM CDTTransthoracic Echocardiography Report (TTE) Demographics Patient Name GRETTA BYRD Date of Study 08/29/2019 MRN 0 [id number] Gender Male Visit Number [id number] Race Unknown Room Number C824 Num sarath Date of 1935 Referring Physician Belem Restrepo Age 83 year(s) Information Lead Lakhwinder Artis RDCS [place] Lizz Bah Interpreting Namita Moreno Physician Procedure Type of Study TTE procedure:2DE CHO W DOPPLER(CW/PW/COLOR) (STAT) Indications:Acute Chest Pain/ Suspected CAD.Cl inical HistoryAFIB, Pericardial effusion, Hypotension, CAD, COPD, HTNS/P Pericar dial window (08.21.2019)HGB 11.8HCT 36.8 %Contrast Medium: Definity.Height: 73 in ches Weight: 87.54 kg (193 lbs) BSA: 2.12 m^2 BMI: 25.46 kg/m^2HR: 65 bpm BP: 11 7/45 mmHg Summary 1. Normal LV size and function. All segments contract normally , LV EF is lower limits of normal (50-55%) . 2. RV chamber size is mildly enlar ged . Global RV systolic function is normal . 3. Grade 3 diastolic dysfunction (marked elevated LA pressure). Previous Study In comparison with the prior exam 08-28-19 the following changes are noted: LV systolic function has improved . S ignature Elect ronically signed by Apurva Chanel MD(Interpreting physician) on 08/29/19 12:14 PM Fi ndings Technical Quality: Technically difficult exam. Left Ventricle The left ventricle is chamber size (by vol index) is normal (male - LVED vol - 34-74ml/m2). LV septal thickness is no rmal (0.6-1.1cm). LV posterior wall thickness is mildly i ncreased (1.2-1.4cm) . All of the LV segments contract normally . Global LV systolic functi on lower limits of normal . LVEF b y Atkinson's method of disk assessment is lower limits of normal (50-55%) . The LVEF was measured using Atkinson's b i-plane method of disk . LV endoca rdium is adequately visualized with IV ultrasound enhanci ng agent. Grade 3 diastolic dysfunction (marked elevated [...] Shawna.: 3.41 cm Ascending Aorta: 3.96 cm Do ppler/Quantitative Measurements Mitral Valve MV Peak E-Wave: 1.1 m/s MV Peak A-Wave: 0.34 m/s E/A Ratio: 3. 22 Mean Velocity: 0.61 m/s Peak Gradient: 4.86 mmHg Mean Gradient: 1.84 mmHg Deceleration Time: 157.1 msec Area (continuity): 2.06 cm^2 MV VTI: 33.83 cm MV Derrick. Peak: 1.24 m/s Tissue Doppler E' Septal Velocity: 0.0 6 m/s E/E': 19.68 E' Lateral Velocity: 0.05 m/s Aortic Valve Peak Derrick ocity: 0.89 m/s Mean Velocity: 0.59 m/s Peak Gradient: 3.16 mmH g Mean Gradient: 1.64 mmHg AV Area (continuity): 4.38 cm^2 Area (2D): 2.76 cm^2 AV VTI: 15.89 cm AV DVI: 1.11 LVOT Peak Velocity: 0. 86 m/s Peak Gradient: 2.93 mmHg Mean Velocity: 0.54 m/s Mean Gradient: 1.38 mmHg LVOT Diameter: 2.24 cm LVOT VTI: 17.68 cm LVOT Area: 3.94 cm^2 LVOT SV:69.64 ml LVOT CO: 4.53 l/min LVOT CI: 2.14 l/min/m^2 [facility] W/PLT COUNT & AUTO [id number] 08:06:00* Test Item Value Reference Range Interpretation Comments WHITE BLOOD CELL COUNT (BEAKER) (test code = 775) 23.3 K/ L 3.5- 10.5 H RED BLOOD CELL COUNT (BEAKER) (test code = 761) 4.23 M/ L 4.63-6 .08 L HEMOGLOBIN (BEAKER) (test code = 410) 11.8 GM/DL 13.7-17.5 L HEMATOCRIT (BEAKER) (test code = 411) 36.8 % 40.1-51.0 L MEAN CORPUSCULAR VOLUME (BEAKER) (test code = 753) 87.0 fL 79. 0-92.2 MEAN CORPUSCULAR HEMOGLOBIN (BEAKER) (test code = 751) 27.9 pg 25.7-32.2 MEAN CORPUSCULAR HEMOGLOBIN CONC (BEAKER) (test code = 752) 32.1 GM/DL 32.3-36.5 L RED CELL DISTRIBUTION WIDTH (BEAKER) (test code = 412) 15.9 % 11.6-14.4 H PLATELET COUNT (BEAKER) (test code = 756) 290 K/CU MM 150-450 MEAN PLATELET VOLUME (BEAKER) (test code = 754) 12.3 fL 9.4-12 .4 NUCLEATED RED BLOOD CELLS (BEAKER) (test code = 413) 0 /100 WBC 0 -0 (CELLAVISION MANUAL DIFF)2019-08-29 08:06:00* Test Item Value Reference Range Interpretation Comments NEUTROPHILS - REL (CELLAVISION)(BEAKER) (test code = 2816) 91 % LYMPHOCYTES - REL (CELLAVISION)(BEAKER) (test code = 2817) 4 % MONOCYTES - REL (CELLAVISION)(BEAKER) (test code = 2818) 4 % ATYPICAL LYMPHOCYTES - REL (CELLAVISION)(BEAKER) (test code = 2829) 1 % 0-0 H NEUTROPHILS - ABS (CELLAVISION)(BEAKER) (test code = 2830) 21.20 K/ul 1.78-5.38 H LYMPHOCYTES - ABS (CELLAVISION)(BEAKER) (test code = 2831) 0.93 K/ul 1.32-3.57 L MONOCYTES - ABS (CELLAVISION)(BEAKER) (test code = 2832) 0.93 K/uL 0.30-0.82 H ATYPICAL LYMPHOCYTES - ABS (CELLAVISION)(BEAKER) (test code = 2858) 0.23 K/uL 0.00-0.00 H TOTAL COUNTED (BEAKER) (test code = 1351) 100 PLT MORPHOLOGY (BEAKER) (test code = 486) Normal TOXIC GRANULATION (BEAKER) (test code = 771) Present POLYCHROMATOPHILLIC RBCS(BEAKER) (test code = 478) 1+ few HYPOCHROMIA (BEAKER) (test code = 963) 1+ few ANISOCYTOSIS (BEAKER) (test code = 961) 1+ few ARTIFACT (CELLAVISION)(BEAKER) (test code = 3432) Present PLATELET CONCENTRATION (CELLAVISION)(BEAKER) (test code = 3438) Hawa quate Sour Bleaching Pleater ID - Kristine Wiliam comments: Slide comments: [id number] 03:52:00* Test Item Value Reference Range Interpretation Comments Procalcitonin (test code = 72216-4) 0.72 ng/mL <0.05 H DUDLEY (test code = DUDLEY) SEPSIS RISK (ng/mL)Low: 0.05-0.50Intermediate: 0.51-2.00High: >=2.01 Lab Interpretation (test code = 19113-8) [facility] 03:52:00* Test Item Value Reference Range Interpretation Comments PROCALCITONIN (BEAKER) (test code = 3036) 0.72 ng/mL <0.05 H SEPSIS RISK (ng/mL)Low: 0.05-0.50Intermediate: 0.51-2.00High: > =2.01RAD, CHEST, 1 VIEW, NON [id number] 01:25:00Reason for exam:->SOBFINAL REPORT CLINICAL INDICATION: Shortness of breath Co mparison: 08/28/2019 The cardiomediastinal contours are stable. The lung volumes remain low. Central pulmonary vascular congestion and bilateral parenchymal and pleural opacities are unchanged. There is no pneumothorax. Signed: Belinda Ravi MDReport Verified Date/Time: 08/29/2019 01:25:11 [id number] 01:14:00* Test Item Value Reference Range Interpretation Comments PHOSPHORUS (BEAKER) (test code = 604) 3.3 mg/dL 2.3-4.7 Sour Bleaching Pleater ID - [id number] 01:14:00* Test Item Value Reference Range Interpretation Comments MAGNESIUM (BEAKER) (test code = 627) 1.9 mg/dL 1.6-2.6 Sour Bleaching Pleater ID - DBBASIC METABOLIC [id number] 01:14:00* Test Item Value Reference Range Interpretation Comments SODIUM (BEAKER) (test code = 381) 130 meq/L 136-145 L POTASSIUM (BEAKER) (test code = 379) 3.9 meq/L 3.5-5.1 CHLORIDE (BEAKER) (test code = 382) 92 meq/L 98-107 L CO2 (BEAKER) (test code = 355) 26 meq/L 22-29 BLOOD UREA NITROGEN (BEAKER) (test code = 354) 12 mg/dL 7-21 CREATININE (BEAKER) (test code = 358) 0.98 mg/dL 0.57-1.25 GLUCOSE RANDOM (BEAKER) (test code = 652) 71 mg/dL 70-105 CALCIUM (BEAKER) (test code = 697) 8.1 mg/dL 8.4-10.2 L EGFR ([facility]) (test code = 1092) 73 mL/min/1.73 sq m ESTIMATED GFR IS NOT ACCURATE CREATININE CLEARANCE IN PREDICTING GLOMERULAR FILTRATION RATE. ESTIMATED GFR IS NOT APPLICABLE FOR DIALYSIS PATIENTS. Sour Bleaching Pleater ID - DBPOC-Blood gases, [id number] 00:47:00* Test Item Value Reference Range Interpretation Comments Temp. Celsius-POC (test code = 1834) FIO2-POC (test code = 1835) 28 pH, Arterial-POC (test code = 1836) 7.470 7.350-7.450 H PCO2, Arterial-POC (test code = 1837) 43.0 35.0- 45.0 mm Hg PO2, Arterial-POC (test code = 1838) 108.0 80.0- 90.0 mm Hg H SO2, Arterial-POC (test code = 1839) 98.0 % 96-97 H HCO3, Arterilal-POC (test code = 1840) 31.3 meq/L 21-29 H BE, Arterial-POC (test code = 1841) 8.0 meq/L -2-3 H : TESTED AT [address], [address]: Sour Bleaching Pleater/Pocket Creaser ID = [id number] for RENAE YANG Lab Interpretation (test code = 16838-7) Abnormal [facility]-Calcium [id number] 00:47:00* Test Item Value Reference Range Interpretation Comments POC-Calcium Ionized (test code = 1536) 1.12 mmol/L 1.12-1.27 : TESTED AT [address], [address]: Sour Bleaching Pleater/Pocket Creaser ID = [id number] for GÉNESIS YANGRICIA Lab Interpretation (test code = 90523-9) Normal [facility]-Sqnwhkcgy3137-59-56 00:47:00* Test Item Value Reference Range Interpretation Comments POC-Potassium (test code = 1540) 3.6 meq/L 3.6-5.5 : TESTED AT [address], [address]: Sour Bleaching Pleater/Pocket Creaser ID = [id number] for GÉNESIS YANGRICIA Lab Interpretation (test code = 33374-2) Normal [facility]-Kdgnpw3442-43-98 00:47:00* Test Item Value Reference Range Interpretation Comments POC-Sodium (test code = 1542) 129 meq/L 135-148 L : TESTED AT [address], [address]: Sour Bleaching Pleater/Pocket Creaser ID = [id number] for TREY, RENAE Lab Interpretation (test code = 33186-2) Abnormal [facility]-[id number] 00:47:00* Test Item Value Reference Range Interpretation Comments POC-Glucose (test code = 1855) 84 mg/dL 70-110 : TESTED AT [address], [address]: Sour Bleaching Pleater/Pocket Creaser ID = [id number] for TREY, RENAE Lab Interpretation (test code = 59597-4) Normal [facility]-[id number] 00:47:00* Test Item Value Reference Range Interpretation Comments POC-Hemoglobin (test code = 1856) 12.9 g/dL 13-16.8 L : TESTED AT [address], [address]: Sour Bleaching Pleater/Pocket Creaser ID = [id number] for TREY, RENAE Lab Interpretation (test code = 46154-0) Abnormal [facility]-[id number] 00:47:00* Test Item Value Reference Range Interpretation Comments POC-Hematocrit (test code = 1857) 38 % 40-50 L : Sour Bleaching Pleater/Pocket Creaser ID = [id number] for TREY, RENAE Lab Interpretation (test code = 29834-1) Abnormal [facility]-BLOOD GASES, [id number] 00:47:00* Test Item Value Reference Range Interpretation Comments TEMP, CELSIUS-POC (BEAKER) (test code = 1834) FIO2-POC (BEAKER) (test code = 1835) 28 PH, ARTERIAL-POC (BEAKER) (test code = 1836) 7.470 7.350-7.4 50 H PCO2, ARTERIAL-POC (BEAKER) (test code = 1837) 43.0 mm Hg 35.0-45 .0 PO2, ARTERIAL-POC (BEAKER) (test code = 1838) 108.0 mm Hg 80.0-90. 0 H SO2, ARTERIAL-POC (BEAKER) (test code = 1839) 98.0 % 96.0-97. 0 H HCO3, ARTERIAL-POC (BEAKER) (test code = 1840) 31.3 meq/L 21.0-29 .0 H BASE EXCESS, ARTERIAL-POC (BEAKER) (test code = 1841) 8.0 meq/L -2.0-3.0 H : TESTED AT [address], [address]: Sour Bleaching Pleater/Pocket Creaser ID = [id number] for RENAE YANG AMBC-[id number] 00:47:00* Test Item Value Reference Range Interpretation Comments POC-SODIUM (BEAKER) (test code = 1542) 129 meq/L 135-148 L : TESTED AT [address], [address]: Sour Bleaching Pleater/Pocket Creaser ID = [id number] for RENAE YANG DVQN-[id number] 00:47:00* Test Item Value Reference Range Interpretation Comments POC-POTASSIUM (BEAKER) (test code = 1540) 3.6 meq/L 3.6-5.5 : TESTED AT [address], [address]: Sour Bleaching Pleater/Pocket Creaser ID = [id number] for RENAE YANG INCJ-[id number] 00:47:00* Test Item Value Reference Range Interpretation Comments POC-HEMOGLOBIN (BEAKER) (test code = 1856) 12.9 g/dL 13.0-16.8 L : TESTED AT [address], [address]: Sour Bleaching Pleater/Pocket Creaser ID = [id number] for RENAE YANG YICC-[id number] 00:47:00* Test Item Value Reference Range Interpretation Comments POC-HEMATOCRIT (BEAKER) (test code = 1857) 38 % 40-50 L : Sour Bleaching Pleater/Pocket Creaser ID = [id number] for RENAE YANG POCT-CALCIUM [id number] 00:47:00* Test Item Value Reference Range Interpretation Comments POC-CALCIUM IONIZED (BEAKER) (test code = 1536) 1.12 mmol/L 1.12-1 .27 : TESTED AT [address], [address]: Sour Bleaching Pleater/Pocket Creaser ID = [id number] for RENAE YANG NBKZ-[id number] 00:47:00* Test Item Value Reference Range Interpretation Comments POC-GLUCOSE (ANA LAURA) (test code = 1855) 84 mg/dL 70-110 : TESTED AT [facility] [address] [facility], [address]: Sour Bleaching Pleater/Pocket Creaser ID = [id number] for RENAE YANG LACTIC ACID, [id number] 00:34:00* Test Item Value Reference Range Interpretation Comments LACTATE BLOOD VENOUS (2) (ANA LAURA) (test code = 2872) 0.77 mmol/L 0 .50-2.20 Sour Bleaching Pleater ID - DB2D Echo W/Doppler(CW/PW/Color)2019-08-28 11:46:29Ejection FractionSLEH ECHO HEARTLAB MKCKESSON CPACSInterface, External Ris In - 08/28/2019 11:46 AM CDTTransthoracic Echocardiography Report (TTE) Demographics Patient Name GRETTA BYRD Date of Study 08/28/2019 Gender Male Visit Number [id number] R gerry Unknown Room Number C830 Number Date of 1935 Referring Eduardo arias MD Physician Age 83 year(s) Information Lead Bakari Manuel In terpreting Leobardo Fairchild an Fellow IVETT Ozuna Procedure Ty pe of Study TTE procedure:2DECHO W DOPPLER(CW/PW/COLOR) (STAT) Indications:P alpitations.Clinical HistoryHGB 11.5HCT 35.5 %AFIBCOPDPERICARDIAL EFFUSIOBNPERIC ARDIAL WINDOW 08/21/19HYPOTENSIONPCI X 2HTNFORMER SMOKERHeight: 73 inches Weight: 87.54 kg (193 lbs) BSA: 2.12 m^2 BMI: 25.46 kg/m^2HR: 66 bpm BP: 126/56 mmHg Lin mmary Since the previous echocardiogram on 08/22/2019, the pericardial effusion h as decreased in size. There is a small anterior apical pericardial effusion. The anterior effusion measures 0.8cm in its greatest end-diastolic diameter A trace posterior effusion is visualized. The LV endocardium is partially visualized. T he left ventricle is chamber size (by vol index) is normal (male - LVED vol - 34 -74ml/m2). Normal LV wall thickness. All of the LV segments are mildly hypokinet ic . LVEF by qualitative assessment is mildly reduced (40-44%) . LV diastolic fu nction is indeterminate. Signature Findings Technical Quality: Technically [...] (40-44%) . LV diastolic function is indeterminate. Lef t Atrium LA size is normal . Right Ventricle The right ventri berna is not well visualized but does appear at least mildl y enlarged with mildly reduced systolic function (TAPSE 1 .3cm) Right Atrium RA size is probably normal [...] effusion is visualized. IVC/SVC/PA/PV/Pleural The estimated RA pre ssure by IVC dynamics 5-10mmHg . Chambers/Structures Left Atrium LA Volume: 41.08 ml LA Area: 16.3 cm^2 LA Vol. Ind ex: 19 ml/m^2 Left Ventricle LVIDd: 4.93 cm LV EDV:114.64 ml LV Septum Diastolic: 0.95 cm LV Septum Systolic: 1.05 cm LV PW Charley stolic: 0.91 cm LV Length: 8.05 cm LV PW Systolic: 1.1 cm LVEDV Atkinson's:121.93 ml LVEDVI: 58 ml/m^2 LVESV Atkinson's :67.71 ml LVESVI: 32 ml/m^2 LVEF Atkinson's: 44.5 % LVOT D iameter: 2.16 cm Doppler/Quantitative Measurements Aortic Valve Peak Velocity: 1.09 m/s Mean Velocity: 0.75 m/s Peak Gradient: 4.75 mmHg Mean Gradient: 2.57 mmHg AV Area (continuity): 2.33 cm^2 AV VTI: 21.0 5 cm AV DVI: 0.64 LVOT Peak Velocity: 0.66 m/s Peak Gradient: 1.7 5 mmHg Mean Velocity: 0.44 m/s Mean Gradient: 0.91 mmHg LVOT Diamete r: 2.16 cm LVOT VTI: 13.37 cm LVOT Area: 3.66 cm^2 L VOT SV:48.97 ml LVOT CO: 3.23 l/min LVOT CI: 1.52 l/min/m^2 [facility] [id number] 04:04:00Reason for exam:->sobFINAL REPORT RAD, CHEST, 1 VIEW, NON DEPT INDICATION: sob COMPARISON: Prior day's exam FINDINGS: Portable frontal view of the chest. IMPRESSION: Lungs and pleura: Unchanged airspace and pleural opacities. No pneumothorax.Heart and mediastinum: Stable contours. 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 Signed: Shala Al Verified Date/Time: 08/28/2019 04:04:39 W/PLT COUNT & AUTO [id number] 03:24:00* Test Item Value Reference Range Interpretation Comments WHITE BLOOD CELL COUNT (BEAKER) (test code = 775) 12.9 K/ L 3.5- 10.5 H RED BLOOD CELL COUNT (BEAKER) (test code = 761) 4.00 M/ L 4.63-6 .08 L HEMOGLOBIN (BEAKER) (test code = 410) 11.5 GM/DL 13.7-17.5 L HEMATOCRIT (BEAKER) (test code = 411) 35.5 % 40.1-51.0 L MEAN CORPUSCULAR VOLUME (BEAKER) (test code = 753) 88.8 fL 79. 0-92.2 MEAN CORPUSCULAR HEMOGLOBIN (BEAKER) (test code = 751) 28.8 pg 25.7-32.2 MEAN CORPUSCULAR HEMOGLOBIN CONC (BEAKER) (test code = 752) 32.4 GM/DL 32.3-36.5 RED CELL DISTRIBUTION WIDTH (BEAKER) (test code = 412) 15.9 % 11.6-14.4 H PLATELET COUNT (BEAKER) (test code = 756) 256 K/CU MM 150-450 MEAN PLATELET VOLUME (BEAKER) (test code = 754) 12.3 fL 9.4-12 .4 NUCLEATED RED BLOOD CELLS (BEAKER) (test code = 413) 0 /100 WBC 0 -0 NEUTROPHILS RELATIVE PERCENT (BEAKER) (test code = 429) 80 % LYMPHOCYTES RELATIVE PERCENT (BEAKER) (test code = 430) 8 % MONOCYTES RELATIVE PERCENT (BEAKER) (test code = 431) 10 % EOSINOPHILS RELATIVE PERCENT (BEAKER) (test code = 432) 2 % BASOPHILS RELATIVE PERCENT (BEAKER) (test code = 437) 0 % NEUTROPHILS ABSOLUTE COUNT (BEAKER) (test code = 670) 10.31 K/ L 1.78-5.38 H LYMPHOCYTES ABSOLUTE COUNT (BEAKER) (test code = 414) 1.07 K/ L 1.32-3.57 L MONOCYTES ABSOLUTE COUNT (BEAKER) (test code = 415) 1.24 K/ L 0. 30-0.82 H EOSINOPHILS ABSOLUTE COUNT (BEAKER) (test code = 416) 0.19 K/ L 0.04-0.54 BASOPHILS ABSOLUTE COUNT (BEAKER) (test code = 417) 0.01 K/ L 0. 01-0.08 IMMATURE GRANULOCYTES-RELATIVE PERCENT (BEAKER) (test code = 2801) 1 % 0-1 [id number] 03:04:00* Test Item Value Reference Range Interpretation Comments MAGNESIUM (BEAKER) (test code = 627) 2.0 mg/dL 1.6-2.6 Sour Bleaching Pleater ID - HUNTER MBASIC METABOLIC [id number] 03:04:00* Test Item Value Reference Range Interpretation Comments SODIUM (BEAKER) (test code = 381) 132 meq/L 136-145 L POTASSIUM (BEAKER) (test code = 379) 4.0 meq/L 3.5-5.1 CHLORIDE (BEAKER) (test code = 382) 95 meq/L 98-107 L CO2 (BEAKER) (test code = 355) 30 meq/L 22-29 H BLOOD UREA NITROGEN (BEAKER) (test code = 354) 11 mg/dL 7-21 CREATININE (BEAKER) (test code = 358) 0.96 mg/dL 0.57-1.25 GLUCOSE RANDOM (BEAKER) (test code = 652) 86 mg/dL 70-105 CALCIUM (BEAKER) (test code = 697) 8.3 mg/dL 8.4-10.2 L EGFR (BEAKER) (test code = 1092) 75 mL/min/1.73 sq m ESTIMATED GFR IS NOT ACCURATE CREATININE CLEARANCE IN PREDICTING GLOMERULAR FILTRATION RATE. ESTIMATED GFR IS NOT APPLICABLE FOR DIALYSIS PATIENTS. Sour Bleaching Pleater ID - HUNTER MTissue [id number] 18:51:00* Test Item Value Reference Range Interpretation Comments Case Report (test code = 104) Surgical Pathology Repor t Case: [id number] Authorizing Provider: Eduardo Shafer, Collected: 08/21/20191955 Ordering Location: [facility] CV Recovery Room 2 Received: 08/22/2019 0856 Pathologist: Miguel Angel Calix MD Specimen: Pericardium DIAGNOSIS (test code = 3220) v1wgzELfYDIsu8ljEZMujQSjTtCtYzJuXlIjQtoyeKOwWXqlfdAhLSnxm9VsJ9MnDxJfWRdfvpAeDKVq CrlzdgaeMBGyTWV8ddQgOASvILehKHWyGYfaQh1yxWRanPpgQbCeBAIjt0pjjhDOhseqvUg2y1ivVTXj CsJ2oUEtWSprM3nsmfUkeBTePLSvPFt6dB89JGEdpR 1bvKMhGFzrjzNwGsN0RNqcIUDgHtP4RGHpiAGgPRVwA4peTFWfAPupWZDuAXyhlTPoMMS4uDqas0I5uM AfeWQzlZfuRrMbPxTjHIIYn6WpCUc3iRvyP2KbYXGhPuF6bFSlFTSaLCmgUEZoWKAtanY4uG95EAhkkz B4xJIdt0Aps32wj766mT1ygPWqBXW7ZWLjDUXpdQOv ASRzDWF3RRJmlCSfQ9c0MfSmqUSrP1E7MtBrmQLnR1P8FgZlyZAgS2K7SxRgbDFyHQPryUUrMk5vpFQm cBJuuo1wed18FWX7a5BepGhgYDO8CQI6XaWbUf4uqFNkDAByED5mMuYkdBYoDIFlvs64dPxuBWsvnaEs qJ4aVcOwAVQaoNJkDQTqHI0txSUjCNCysC5grmebDA AwOvZgtiblNSIieGprwuUkLb5fiUplMJT5JCgxO2qquF6eVgP8CUzjE5xdbS0eHWt5JMrkbYG3FZAbkU 7mDF9ziyfxm6faTkCoHU3hcieoy4giLhGxNT5gjbx8d5ruObVwXX3ntmcxm1nsDdSaIJhwCGStggxgXN Udf3GugkcyZLYzp6KrZ7PqyLmoA74tjNrlZ45eKYCg fZeekB2laBqejM2nKrNsLyWnJLxlsSetlPVdgdgkLEppwiOzVMopxkqxIJPfOAtwY3tzHgJvJETdpRft XXhdf7GeOIVvUGYaIxPiIINICJJBBxRJLQ9iTABZG5rSZK2QAIBiimFvRGTtUSSJYXLsCP1GSNKYGv6Z AJJzMI7NDBVOFJFJTL1BUFoMUIonCDYNQYTKZpAtRz pFHqaGW9COXV1HDLSHLCTATJLWURMLGFGJHCpKQRGRQCNBC2PHTJXlth03YMA2AhNoo3W0NKY1XNOqVI Pjh2bbMUPrgKUeZqEtYwKoXnBqHnwoeUVwYSCgXuAct5nrc521fRHzo6ffHVChBuK2sWBlRZKjhLYvL0 90NZEfDWelx3byb1GfLGNgoHHzx3V9WLIAsorsmZt0 fKwkN60ll6I1VavlK3ktWEAfYOIiG1IkTK9hAARwYqk1FXR5XRF4NJLyXPOjO9OtJI3vLDKdeWIiOGi7 v3sstRjqGJHlSPV8t8ilPNlqpgDuQD8ptt6rpUs5q6aqmkUgHNZtQSWvpWDUPPJoA0QtgNppDj3kxEd5 sEpnQyvxDLT4Rws5FT5kef40mjz9wEykVILelkjwOs D6UNalFCCdmkixOUo5DLkyWNFldJD0UUZzfZFhM8ElWNJzWU2iknp2ZBF3DNfcFMLdCzD5HLUmlRGoTA PusKkaVVbwz626GUR0CiZxID8zB9Jwe0L9hV8faRNaIYTphYPmKbGoLDTzto3ylUEuBFsfd7YqUJI4ip M9yKOmfWUfKHNlOnG8AIocAR5lge36PAKjBUR5tc1m jFJqzBwbfqKueTHuUMkaG2MhCHYom054OPBzD8SrYKJsr1H6fwPrSyCnECIslSM7aeI5NVMlOD8wvidc g6vzVDllFVajNIIjbzG8rnV1JTBkaUMfH8MwqP4vBLXwWR2jyrhda1dySYQ0YUjiIZKuLTH2TwWgYZLm q5Kusdt6ThJuc3DtoGKvGCutY29wc697IFTuwoIyM6 cmrDJbbrqasKEfdxubHJsxrdV5UFHbWXtfvrctPNOqCAoyI8xlIiZwSWPrlZrmHAtae6OuMPIhGEIuHj XbeXXvFRImFcv5BPPjwFVfHUEwBsSlW4laanxiDlKRQZCpq5hjE8zcsHYKcKJqF9AhSHsjomYgWIqkPY jnQEK3XHN5Ht97WsF1CMBoth90 CPT Code(s) (test code = 3357) n1ahlDEjSBVmmHVcOxLdCVWrQYJsw0ooJRKooSSxCqEvSfMuDmVdAuayhHLfPZVgDuKao7dac709vUUf o2wqVHJjIcK1wEUiYWDouKPbX239HCFmIWeuo5ggd5GyXYCdtWXaw4X1JARRdrtanRa4dDzdT11qs1Z4 WmqrE4ndXPGnGDCgQ3FqDQ3eCWEsBuy5CYX0MOU8CC EbGLFrB0UsMK2kXHSrfGTuMDh0i7xrhKztDQGgJYN0c3ckJMhvlaUlPB9own1ulIq7s3kccmOkSSEgJQ VtcLEYZVHhJ2IygIviBd3zzIt0tBunZxqxEOW7Gsr8AK3uon65fyu2bZljVHNtmbbhAdW4EQxiWXVaqh ccGGq2TOhvIWPosDcsMAplPPIyisibKKyzDNDocIuj GAlaHVSjBdkkIDgjFOGxGAS2RUqbm280UKE6CLqum8nvl2rcmTDhPhu7ATXuPvKxUzzwVUrdl1Gqq3io VQCsmg4fDOJ0bGUgbOibf1S7uCQoLCLqbPJvidNiTUQiFmV3BEnlOP4fpd08UGDlYAC2ux1bnRLmyWkx syJoyGSlTKwyA4HhUATtz398JTErC7WmRSFge1X9ig YbNjCjDKXhmJP1udH7DZWqXHt8hLGnngR3hlWlmQDqH1ryoM53KnHfzLGeU4KorF12NdZxdFLvG8AbyX 90JxUbjGKkR4IbpH09ThXwmTXuJWOgvXPySh8ldLYvxFTnd9AmnODkNFvxP53sx015EJOsqxIkY0fzzQ QhspxqhUEzyhuxIRdxjeH8SIInWYRiCZalKOWmVUIo CxCtqLAtTnFmFhNueSpiyKodWAdiWzPwHONdBMdhC4ynLnKaWfJyDCD8IXWxKScsJTG9 CLINICAL HISTORY (test code = 3356) d6jccMFqEEGgpWCgUgOkNMKmHHHfk6snWHQurHGtErByCkZaFlWzUiqflSFmTXQjExMei5izr311xITa n8zcHRIjXpP6qGBjOOQdwHImY906j7ehq1ykkcGoaFQ8UQReKUD0MSlwqbJewsK2QVteyCZnMtB4MIef ujAyJHxlagFuunMpOph9QHNqF310PDO1xKugh8teGX B0UMOdGTVrTxCnQr1kzKIxY510PFNgHYTRIUUpbCn0IYWiyrHerrXxzIESp678N180w2rjSBXcmjQglL lDtgraz2zsM193PQLrdGMgqbEeZaZhPWHskXUqrCZ1YESzVB5fzvmiUhPnWN2tbibeKhIkXK6bxeg4Hp KnOR7bppwtAwOiAPlcZVYbdabwPUFdd9BssoiiYZ1u E0Tny8M8wW4rxRIdOBPzvPNqKuXyIXJmau6taCFaMEsxi7QcJCD0rwP6oTGvkPLtLVVlFQ37Kzlld4Yn InyrMHX8ONRhsrFba3Cvf6mxJaJknbIgX4ieF4CkCAEnEWVlAPXqUhGezbKhx3Lrt6VvyXViaLr3z1dh ALYmMEPxkRqef6goTYY1WYVrZ9Q1qGMhi2hvFBemEP LlnRW1muqxWChyBYUwwhX5telnUCfqTFGjnVM1zbeaVRrlZCXlUeF1vyfyUEouGXOpIRK1QVgpv581JE N4HArpJqqqTAykDQAyezWajvBiyJfgMMWxHSDeQGysPNZtUBxlKHCxLZJmEvDwbHslzJeznS5dEuNePk LxGGgnGZ0jWLZgT1jvmUKkWJRzFCFdK6jzPuUphP6f jSsvOFrjcjCuLKAvensrVNJpaCKdJCMyBdNniW2nBDghCDR4 SPECIMEN SOURCE (test code = 3377) i4xobZRzTEHrcXEgNkWdOIZxWZPnx9qiYPIwjUGkKgKvQoMcEvFtTkoyvKThPBYsMaByb0zms952uAGt p5jbUKDyVoC5iXSsUAMtyIWdH202f2pnr3qjznPxvAQ6EAPkPCU4HPhzgdBxatM3FEkmuSMyTfQ8RFum pgGjUNcgmfOocgXvHcb5TKMfR715FYB9oEcyo0keLG C8MFGwTUOxHiIuUo4uzVFoO524YIZuFURJRZXvtXg9YGBmqwIbqpUbfHNPq265V249v5wuMXVehpJwzV jEwbmhk0tqY424ZLTtiCUjswRnUdAqHARcnEFjnII9TYFpDP7nrnizGiNvPS1cywsaMfDvAX3dcfq4Ks XxSR7nvncgMnGaZEmiGCArqcxrCZXoo6QivvjdRL4f B6Kuc0S3fT1oxJJkUOXkvZLmPhDlMOZxil6feLGnNHukm7YuIIO6efX0iFAhcUHfQMOqBH15Gkcmr2Jn KjeuMRA7DPPueuMid7Hys2okVxRddjTuU1ccE7RbRKNhCMTvXNXyAuFkfbToi2Kay1GxfQHrhCm5z9ps NNJmKRVhsVtpl5rkUJM8WKQjL3G9qEByk5trYMpcUL PuqEW2ahqyNGrfDFKlutD8gmnsXViiJEAtiRU2inosNCqcBOGhXvB5jcsbPOfmJHFrPKJ7XVfru020EQ G8UUypXxyeETzlDOQvlmVpgaWzcQinSKKxTQMxSYskWRVlXLqsSDDwUKIhSoXovSqxyBzofZ6cViErNr FaHMyeKF6lBEJhT4sfpKUqMCRaJXMqV4xhQtGpjM1hlBipIYdejmYiCBImzmtvMPTicEWoHKngFHO3 GROSS DESCRIPTION (test code = 3366) v1rnkOZrPNBptUGoWbZsNSIeTPGha0pxBUBbtUTbOeFwPxNyLbFoMsotiFLdCUBfBpOsh2wth997cGSf z8amICCoFnN8tIWvEAHpdTYrP305h1uhp0bohvGfbXS4GAUzUFH8SDgsjnQevoC2TGudwYFuVnP3MYwp rmHfVNishtIlvpLxLdi7ORBuB941IUZ2fYtso4wxDY N1AZMgOGLoXjQyJc4skPXlV445WFKbIXEYVOGxsAk5AIVivgYwnpQtcZEGq879N567d6ksUQBaylAqhM fKsiiyr1hiC972TPYxxKBlzbFeDsBuBVGpnXOsnAL0HFMxII4adnyeLbLjPN5dwpkjCoZdYN4rfvq5Mu SpNQ6mzzobWrDdATkzYEGtktbsIUCso6FgdnptEL0b J4Flj3P9yS1jtKUkFLBboHAsBoOsMWUncd5udTNgBRtzq1PrOKE3eaU2fYHgpNMnTNDmHD60Eoowp1Jm VweiXXA0YRHxddOmw5Fnv5qkLfZluzIbZ4rjE6NpEWCyAEGcKHGtFnFxmkTtg9Mvv5EcqMVnhJx5t4yv TPPfQYOnaFemj2plRZY9EGLpA8T8mNKqu0qxSQemRS OdgON2bfahZMuzYJIeihG1baurPNkdOBBbjFM5ypvjOSvzCRIvVrO4gxwlZIjxIMDgWLN6VEnxh991YO N6CNikGcksWFdeIGIlimDwsjUcxGfgUOUqHUJiHDykODOcNDqbVCAcLYVqZzKhtAPohZQcIPYeUDUdPN luXGYwXGZzMjBcbGFuZzEwMzNcaGljaFxmMFxkYmNo ZIYyQMliV7whFaDbUlXyRDPMLGZbfYIkNEFgzdWruJOoFVSutDOgXLawrIhxuAimRCCpcFagypPuoiQz UH2iTKIdQ4Pok3Nbk21ofsKoPiGlQUOhAOJbkVMszXYvceOxvM0cSLUbEEQ9j53ydNIuMSn3bSYhIWPu IOJdmkLnEpQuBADbhKfgejDeo4I2QPMbc3E3UOKkO3 khVOaoxPwnCzAyUFyhKS91LOnnAZ1rBOZvNjVSiWBtfWWdI4TpKKXud8W5SLDsqzCyoBVstncjANU2AS CgKNDzXPYboxJcwe3bffOgIBOjw61eHPIaYWEdGJQfoQiddZEtCiIRxZSjt0BrM9orAJ0pcXEoXM49uI VpqUjtt1CctDg3dHVhWZgbAEDmGfLDZc2ayiJsvITnqY== MICROSCOPIC DESCRIPTION (test code = 3371) o8qvrUHeEBWryZBgIpZnCPOuUIRts3geXGKceRReEjIaJqIsGqVmVwryqODlNXOmFoQux3cta080cTSm v3xtHJJuJaY6uAPzUTDfyCLwW222a4ttu3wvpySanUZ4FWHiAKA0EQugueBegzB6CTnapDQeMqA1JFno cbAlZKpmcmYqqiTnUsh3YFQtJ591LRO9oThjz1fuHT C2WGKcIFGyUgHiBk0grVHnN671QGKlQRDBVRBuiXn4NRXtamQjefRqwRNPd432F418o3jnDQRnekRgcE mYxdtsf1kiH719XQWsaFUwufYsOnPtKPCgwEJjlOE7QAReOJ9yqzycCbVmEQ2arxtaGqWxVL6ndoh8Nu XqKG7ddcggReAuVNgyQCPraekrKRRxi7OcvdefQR7n V8Knd5O9gM4amXQnFBWmmMRtTsJqMJApdu8kiIVuGHqhx4QyQEI1rjK9yDNgjBDbRMRyVD70Tgjyz1Xy KbqyQKZ0UICqcbWvn1Xyt0hxRdLophPnC7vcP1EkCRVxZAKgLPPfDsAkxxJlx9Xuy3DkbZLliYd6l5yw ZBQjKIHpsYxbe3nfSZB1OSErH2O3nODhn7wjMDsjHN ZqkYC9arohJEmcUZQnktO4sbieXIbpJJQujAJ8testTVfhBGAeXzH4fscwNAgcKSYuIJA2ZOikj989NC K7LCtoBaotZJmjKSEhdvDhycCxoZeqSCElWQOlATgoZNCbROebLZBjYBToXiRbyAczcJdprI8uTlEgDw XbZCpsVC9gXZHkD6kgmUHzWZRpQDNpU7blWdGbfC0muCacEQeoalIcCAVfbgZtey5jLE5okDMejV== Gross assessment was performed at (test code = 2777) [facility], Department of Pathology, [address] [place] [address], Technical component was performed at (test code = 2778 ) [facility], Department of Pathology, [address] [place], [place] [id number], Professional component was performed at (test code = 2 779) [facility], Department of Pathology, [address] [place], [place] [address], [facility] [id number] 18:51:00Surgical Pathology Report Case: [id number] Authorizing Provider: Eduardo Shafer, Collected: 08/21/2019 Vladimir Ordering Location: [facility] CV Recovery Room 2 Received: 08/22/2019 0856 Pathologist: Miguel Angel Calix MD Specimen: Pericardium PERICARDIUM, EXCISION- ACUTE AND CHRONIC INFLAMMATION WITH ADHERENT FIBRINOUS MATERIAL AND REACTIVE CHANGES Signing Pathologist Direct Phone Line: [phone] signed by Miguel Angel Calix MD on 08/27/2019 at 6:51 [id number] effusion Pericardium Received fresh label ed with the patient's name, accession number and "pericardium" are two irregular pieces of red-pink soft tissue aggregating 2 x 1.5 x 0.2 cm. The larger tissue is quadrisected, and no gross lesions are identified. The specimen is entirely s ubmitted in A1. CG/ew Performed.[facility], Department of Pathology, [address] [place] [id number], [facility], [address] [place] [address] 7 1030, [facility], [address] [place] [id number], [id number] CULTURE 2019-08-27 18:16:00* Test Item Value Reference Range Interpretation Comments CULTURE (BEAKER) (test code = 1095) No anaerobes isolated ANAEROBIC [id number] 18:16:00* Test Item Value Reference Range Interpretation Comments CULTURE (BEAKER) (test code = 1095) No anaerobes isolated Anaerobic [id number] 18:14:00* Test Item Value Reference Range Interpretation Comments Result (test code = 6463-4) No [facility]erobes isolated [id number] 18:14:00* Test Item Value Reference Range Interpretation Comments CULTURE (BEAKER) (test code = 1095) No anaerobes isolated RAD, CHEST, 1 VIEW, NON [id number] 14:10:00Reason for exam:->evalaute heart functionFINAL REPORT History: Heart dysfunction Comparison: 08/24/2019 Findings: The bilateral pulmonary opacities are unchanged or sightly decreased since the prior study. Small bilateral pleural effusions persist, with adjacent compressive atelectasis at the lung bases. No pneumothorax is identified. There is subcutaneous emphysema in the left chest wall, decreased since the prior study. The cardiac shadow is partially obscured. Signed: Corazon Marcialeport Verified Date/Time: 08/27/2019 14:10:25 Reading Location: [facility] Radiology Reading Room [id number] 13:38:00* Test Item Value Reference Range Interpretation Comments MAGNESIUM (BEAKER) (test code = 627) 2.2 mg/dL 1.6-2.6 Sour Bleaching Pleater ID - KATELYN [id number] 06:07:00* Test Item Value Reference Range Interpretation Comments MAGNESIUM (BEAKER) (test code = 627) 2.0 mg/dL 1.6-2.6 Sour Bleaching Pleater ID - HUNTER MBASIC METABOLIC [id number] 06:07:00* Test Item Value Reference Range Interpretation Comments SODIUM (BEAKER) (test code = 381) 134 meq/L 136-145 L POTASSIUM (BEAKER) (test code = 379) 4.0 meq/L 3.5-5.1 CHLORIDE (BEAKER) (test code = 382) 97 meq/L 98-107 L CO2 (BEAKER) (test code = 355) 28 meq/L 22-29 BLOOD UREA NITROGEN (BEAKER) (test code = 354) 9 mg/dL 7-21 CREATININE (BEAKER) (test code = 358) 0.83 mg/dL 0.57-1.25 GLUCOSE RANDOM (BEAKER) (test code = 652) 77 mg/dL 70-105 CALCIUM (BEAKER) (test code = 697) 8.2 mg/dL 8.4-10.2 L EGFR (BEAKER) (test code = 1092) 88 mL/min/1.73 sq m ESTIMATED GFR IS NOT ACCURATE CREATININE CLEARANCE IN PREDICTING GLOMERULAR FILTRATION RATE. ESTIMATED GFR IS NOT APPLICABLE FOR DIALYSIS PATIENTS. Sour Bleaching Pleater ID - HUNTER MCBC W/PLT COUNT & AUTO [id number] 05:36:00* Test Item Value Reference Range Interpretation Comments WHITE BLOOD CELL COUNT (BEAKER) (test code = 775) 12.7 K/ L 3.5- 10.5 H RED BLOOD CELL COUNT (BEAKER) (test code = 761) 4.01 M/ L 4.63-6 .08 L HEMOGLOBIN (BEAKER) (test code = 410) 11.4 GM/DL 13.7-17.5 L HEMATOCRIT (BEAKER) (test code = 411) 35.6 % 40.1-51.0 L MEAN CORPUSCULAR VOLUME (BEAKER) (test code = 753) 88.8 fL 79. 0-92.2 MEAN CORPUSCULAR HEMOGLOBIN (BEAKER) (test code = 751) 28.4 pg 25.7-32.2 MEAN CORPUSCULAR HEMOGLOBIN CONC (BEAKER) (test code = 752) 32.0 GM/DL 32.3-36.5 L RED CELL DISTRIBUTION WIDTH (BEAKER) (test code = 412) 15.6 % 11.6-14.4 H PLATELET COUNT (BEAKER) (test code = 756) 253 K/CU MM 150-450 MEAN PLATELET VOLUME (BEAKER) (test code = 754) 12.6 fL 9.4-12 .4 H NUCLEATED RED BLOOD CELLS (BEAKER) (test code = 413) 0 /100 WBC 0 -0 NEUTROPHILS RELATIVE PERCENT (BEAKER) (test code = 429) 82 % LYMPHOCYTES RELATIVE PERCENT (BEAKER) (test code = 430) 8 % MONOCYTES RELATIVE PERCENT (BEAKER) (test code = 431) 8 % EOSINOPHILS RELATIVE PERCENT (BEAKER) (test code = 432) 2 % BASOPHILS RELATIVE PERCENT (BEAKER) (test code = 437) 0 % NEUTROPHILS ABSOLUTE COUNT (BEAKER) (test code = 670) 10.37 K/ L 1.78-5.38 H LYMPHOCYTES ABSOLUTE COUNT (BEAKER) (test code = 414) 0.96 K/ L 1.32-3.57 L MONOCYTES ABSOLUTE COUNT (BEAKER) (test code = 415) 1.04 K/ L 0. 30-0.82 H EOSINOPHILS ABSOLUTE COUNT (BEAKER) (test code = 416) 0.21 K/ L 0.04-0.54 BASOPHILS ABSOLUTE COUNT (BEAKER) (test code = 417) 0.03 K/ L 0. 01-0.08 IMMATURE GRANULOCYTES-RELATIVE PERCENT (BEAKER) (test code = 2801) 1 % 0-1 BLOOD [id number] 22:01:00* Test Item Value Reference Range Interpretation Comments CULTURE (BEAKER) (test code = 1095) No growth in 5 days BLOOD [id number] 19:00:00* Test Item Value Reference Range Interpretation Comments CULTURE (BEAKER) (test code = 1095) No growth in 5 days [id number] 18:56:00* Test Item Value Reference Range Interpretation Comments POTASSIUM (BEAKER) (test code = 379) 3.5 meq/L 3.5-5.1 Sour Bleaching Pleater ID - [id number] 18:56:00* Test Item Value Reference Range Interpretation Comments MAGNESIUM (BEAKER) (test code = 627) 2.0 mg/dL 1.6-2.6 Sour Bleaching Pleater ID - BSCALCIUM, [id number] 18:21:00* Test Item Value Reference Range Interpretation Comments CALCIUM IONIZED (BEAKER) (test code = 698) 1.12 mmol/L 1.12-1.27 PH, BLOOD (BEAKER) (test code = 1810) 7.46 Check serum Ionized Calcium level after 4 hours after IV Calcium replacement.CBC W/PLT COUNT & AUTO [id number] 06:42:00* Test Item Value Reference Range Interpretation Comments WHITE BLOOD CELL COUNT (BEAKER) (test code = 775) 9.5 K/ L 3.5- 10.5 RED BLOOD CELL COUNT (BEAKER) (test code = 761) 4.05 M/ L 4.63-6 .08 L HEMOGLOBIN (BEAKER) (test code = 410) 11.2 GM/DL 13.7-17.5 L HEMATOCRIT (BEAKER) (test code = 411) 36.1 % 40.1-51.0 L MEAN CORPUSCULAR VOLUME (BEAKER) (test code = 753) 89.1 fL 79. 0-92.2 MEAN CORPUSCULAR HEMOGLOBIN (BEAKER) (test code = 751) 27.7 pg 25.7-32.2 MEAN CORPUSCULAR HEMOGLOBIN CONC (BEAKER) (test code = 752) 31.0 GM/DL 32.3-36.5 L RED CELL DISTRIBUTION WIDTH (BEAKER) (test code = 412) 15.4 % 11.6-14.4 H PLATELET COUNT (BEAKER) (test code = 756) 235 K/CU MM 150-450 MEAN PLATELET VOLUME (BEAKER) (test code = 754) 12.1 fL 9.4-12 .4 NUCLEATED RED BLOOD CELLS (BEAKER) (test code = 413) 0 /100 WBC 0 -0 NEUTROPHILS RELATIVE PERCENT (BEAKER) (test code = 429) 81 % LYMPHOCYTES RELATIVE PERCENT (BEAKER) (test code = 430) 10 % MONOCYTES RELATIVE PERCENT (BEAKER) (test code = 431) 7 % EOSINOPHILS RELATIVE PERCENT (BEAKER) (test code = 432) 2 % BASOPHILS RELATIVE PERCENT (BEAKER) (test code = 437) 0 % NEUTROPHILS ABSOLUTE COUNT (BEAKER) (test code = 670) 7.68 K/ L 1.78-5.38 H LYMPHOCYTES ABSOLUTE COUNT (BEAKER) (test code = 414) 0.92 K/ L 1.32-3.57 L MONOCYTES ABSOLUTE COUNT (BEAKER) (test code = 415) 0.64 K/ L 0. 30-0.82 EOSINOPHILS ABSOLUTE COUNT (BEAKER) (test code = 416) 0.19 K/ L 0.04-0.54 BASOPHILS ABSOLUTE COUNT (BEAKER) (test code = 417) 0.02 K/ L 0. 01-0.08 IMMATURE GRANULOCYTES-RELATIVE PERCENT (BEAKER) (test code = 2801) 1 % 0-1 [id number] 05:55:00* Test Item Value Reference Range Interpretation Comments PHOSPHORUS (BEAKER) (test code = 604) 3.1 mg/dL 2.3-4.7 Sour Bleaching Pleater ID - HUNTER [id number] 05:55:00* Test Item Value Reference Range Interpretation Comments MAGNESIUM (BEAKER) (test code = 627) 2.0 mg/dL 1.6-2.6 Sour Bleaching Pleater ID - HUNTER MBASIC METABOLIC [id number] 05:55:00* Test Item Value Reference Range Interpretation Comments SODIUM (BEAKER) (test code = 381) 137 meq/L 136-145 POTASSIUM (BEAKER) (test code = 379) 4.0 meq/L 3.5-5.1 CHLORIDE (BEAKER) (test code = 382) 100 meq/L 98-107 CO2 (BEAKER) (test code = 355) 32 meq/L 22-29 H BLOOD UREA NITROGEN (BEAKER) (test code = 354) 10 mg/dL 7-21 CREATININE (BEAKER) (test code = 358) 0.84 mg/dL 0.57-1.25 GLUCOSE RANDOM (BEAKER) (test code = 652) 83 mg/dL 70-105 CALCIUM (BEAKER) (test code = 697) 8.5 mg/dL 8.4-10.2 EGFR (BEAKER) (test code = 1092) 87 mL/min/1.73 sq m ESTIMATED GFR IS NOT ACCURATE CREATININE CLEARANCE IN PREDICTING GLOMERULAR FILTRATION RATE. ESTIMATED GFR IS NOT APPLICABLE FOR DIALYSIS PATIENTS. Sour Bleaching Pleater HUSSEIN HARRISON [id number] 19:45:00* Test Item Value Reference Range Interpretation Comments MAGNESIUM (BEAKER) (test code = 627) 2.0 mg/dL 1.6-2.6 Specimen slightly hemolyzed Sour Bleaching Pleater HUSSEIN JOHNSON EBASIC METABOLIC [id number] 18:22:00* Test Item Value Reference Range Interpretation Comments SODIUM (BEAKER) (test code = 381) 137 meq/L 136-145 POTASSIUM (BEAKER) (test code = 379) 4.0 meq/L 3.5-5.1 Specimen slightly hemolyzed CHLORIDE (BEAKER) (test code = 382) 100 meq/L 98-107 CO2 (BEAKER) (test code = 355) 29 meq/L 22-29 BLOOD UREA NITROGEN (BEAKER) (test code = 354) 11 mg/dL 7-21 CREATININE (BEAKER) (test code = 358) 0.88 mg/dL 0.57-1.25 Specimen slightly hemolyzed GLUCOSE RANDOM (BEAKER) (test code = 652) 92 mg/dL 70-105 CALCIUM (BEAKER) (test code = 697) 8.4 mg/dL 8.4-10.2 EGFR (BEAKER) (test code = 1092) 83 mL/min/1.73 sq m ESTIMATED GFR IS NOT ACCURATE CREATININE CLEARANCE IN PREDICTING GLOMERULAR FILTRATION RATE. ESTIMATED GFR IS NOT APPLICABLE FOR DIALYSIS PATIENTS. Sour Bleaching Pleater HUSSEIN JOHNSON EOxygen saturation, [id number] 17:54:00* Test Item Value Reference Range Interpretation Comments O2 Saturation (Measured) (test code = 08111-4) 61.5 % [facility] [id number] 17:54:00* Test Item Value Reference Range Interpretation Comments O2 SATURATION (MEASURED) (BEAKER) (test code = 1455) 61.5 % OXYGEN SATURATION, [id number] 09:45:00* Test Item Value Reference Range Interpretation Comments O2 SATURATION (MEASURED) (BEAKER) (test code = 1455) 64.0 % Sputum Culture + Gram [id number] 09:20:00* Test Item Value Reference Range Interpretation Comments Result (test code = 6463-4) No growth Gram Stain Result (test code = 1123) No organisms seen [facility] [id number] 09:20:00* Test Item Value Reference Range Interpretation Comments CULTURE (BEAKER) (test code = 1095) No growth GRAM STAIN RESULT (BEAKER) (test code = 1123) 3+ White blood cells seen GRAM STAIN RESULT (BEAKER) (test code = 95186) 15-20 epithelial adelina ls GRAM STAIN RESULT (BEAKER) (test code = 44724) No organisms seen [id number] 06:15:00* Test Item Value Reference Range Interpretation Comments PHOSPHORUS (BEAKER) (test code = 604) 3.6 mg/dL 2.3-4.7 Sour Bleaching Pleater ID - HUNTER [id number] 06:15:00* Test Item Value Reference Range Interpretation Comments MAGNESIUM (BEAKER) (test code = 627) 2.2 mg/dL 1.6-2.6 Sour Bleaching Pleater ID - HUNTER MBASIC METABOLIC [id number] 06:15:00* Test Item Value Reference Range Interpretation Comments SODIUM (BEAKER) (test code = 381) 137 meq/L 136-145 POTASSIUM (BEAKER) (test code = 379) 3.9 meq/L 3.5-5.1 CHLORIDE (BEAKER) (test code = 382) 103 meq/L 98-107 CO2 (BEAKER) (test code = 355) 26 meq/L 22-29 BLOOD UREA NITROGEN (BEAKER) (test code = 354) 12 mg/dL 7-21 CREATININE (BEAKER) (test code = 358) 0.80 mg/dL 0.57-1.25 GLUCOSE RANDOM (BEAKER) (test code = 652) 91 mg/dL 70-105 CALCIUM (BEAKER) (test code = 697) 8.2 mg/dL 8.4-10.2 L EGFR (BEAKER) (test code = 1092) 92 mL/min/1.73 sq m ESTIMATED GFR IS NOT ACCURATE CREATININE CLEARANCE IN PREDICTING GLOMERULAR FILTRATION RATE. ESTIMATED GFR IS NOT APPLICABLE FOR DIALYSIS PATIENTS. Sour Bleaching Pleater ID - HUNTER [facility]BC W/PLT COUNT & AUTO [id number] 05:56:00* Test Item Value Reference Range Interpretation Comments WHITE BLOOD CELL COUNT (BEAKER) (test code = 775) 6.9 K/ L 3.5- 10.5 RED BLOOD CELL COUNT (BEAKER) (test code = 761) 3.80 M/ L 4.63-6 .08 L HEMOGLOBIN (BEAKER) (test code = 410) 10.8 GM/DL 13.7-17.5 L HEMATOCRIT (BEAKER) (test code = 411) 34.1 % 40.1-51.0 L MEAN CORPUSCULAR VOLUME (BEAKER) (test code = 753) 89.7 fL 79. 0-92.2 MEAN CORPUSCULAR HEMOGLOBIN (BEAKER) (test code = 751) 28.4 pg 25.7-32.2 MEAN CORPUSCULAR HEMOGLOBIN CONC (BEAKER) (test code = 752) 31.7 GM/DL 32.3-36.5 L RED CELL DISTRIBUTION WIDTH (BEAKER) (test code = 412) 15.5 % 11.6-14.4 H PLATELET COUNT (BEAKER) (test code = 756) 201 K/CU MM 150-450 MEAN PLATELET VOLUME (BEAKER) (test code = 754) 11.9 fL 9.4-12 .4 NUCLEATED RED BLOOD CELLS (BEAKER) (test code = 413) 0 /100 WBC 0 -0 NEUTROPHILS RELATIVE PERCENT (BEAKER) (test code = 429) 75 % LYMPHOCYTES RELATIVE PERCENT (BEAKER) (test code = 430) 13 % MONOCYTES RELATIVE PERCENT (BEAKER) (test code = 431) 9 % EOSINOPHILS RELATIVE PERCENT (BEAKER) (test code = 432) 2 % BASOPHILS RELATIVE PERCENT (BEAKER) (test code = 437) 0 % NEUTROPHILS ABSOLUTE COUNT (BEAKER) (test code = 670) 5.15 K/ L 1.78-5.38 LYMPHOCYTES ABSOLUTE COUNT (BEAKER) (test code = 414) 0.88 K/ L 1.32-3.57 L MONOCYTES ABSOLUTE COUNT (BEAKER) (test code = 415) 0.63 K/ L 0. 30-0.82 EOSINOPHILS ABSOLUTE COUNT (BEAKER) (test code = 416) 0.14 K/ L 0.04-0.54 BASOPHILS ABSOLUTE COUNT (BEAKER) (test code = 417) 0.01 K/ L 0. 01-0.08 IMMATURE GRANULOCYTES-RELATIVE PERCENT (BEAKER) (test code = 2801) 1 % 0-1 [id number] 00:38:00* Test Item Value Reference Range Interpretation Comments PHOSPHORUS (BEAKER) (test code = 604) 1.9 mg/dL 2.3-4.7 L Sour Bleaching Pleater ID - TEETEE [id number] 00:38:00* Test Item Value Reference Range Interpretation Comments MAGNESIUM (BEAKER) (test code = 627) 1.8 mg/dL 1.6-2.6 Sour Bleaching Pleater ID - TEETEE BBASIC METABOLIC [id number] 00:38:00* Test Item Value Reference Range Interpretation Comments SODIUM (BEAKER) (test code = 381) 137 meq/L 136-145 POTASSIUM (BEAKER) (test code = 379) 3.7 meq/L 3.5-5.1 CHLORIDE (BEAKER) (test code = 382) 103 meq/L 98-107 CO2 (BEAKER) (test code = 355) 28 meq/L 22-29 BLOOD UREA NITROGEN (BEAKER) (test code = 354) 14 mg/dL 7-21 CREATININE (BEAKER) (test code = 358) 0.85 mg/dL 0.57-1.25 GLUCOSE RANDOM (BEAKER) (test code = 652) 106 mg/dL 70-105 H CALCIUM (BEAKER) (test code = 697) 8.3 mg/dL 8.4-10.2 L EGFR (BEAKER) (test code = 1092) 86 mL/min/1.73 sq m ESTIMATED GFR IS NOT ACCURATE CREATININE CLEARANCE IN PREDICTING GLOMERULAR FILTRATION RATE. ESTIMATED GFR IS NOT APPLICABLE FOR DIALYSIS PATIENTS. Sour Bleaching Pleater ID - TEETEE BCBC W/PLT COUNT & AUTO [id number] 23:40:00* Test Item Value Reference Range Interpretation Comments WHITE BLOOD CELL COUNT (BEAKER) (test code = 775) 8.6 K/ L 3.5- 10.5 RED BLOOD CELL COUNT (BEAKER) (test code = 761) 3.81 M/ L 4.63-6 .08 L HEMOGLOBIN (BEAKER) (test code = 410) 10.7 GM/DL 13.7-17.5 L HEMATOCRIT (BEAKER) (test code = 411) 33.8 % 40.1-51.0 L MEAN CORPUSCULAR VOLUME (BEAKER) (test code = 753) 88.7 fL 79. 0-92.2 MEAN CORPUSCULAR HEMOGLOBIN (BEAKER) (test code = 751) 28.1 pg 25.7-32.2 MEAN CORPUSCULAR HEMOGLOBIN CONC (BEAKER) (test code = 752) 31.7 GM/DL 32.3-36.5 L RED CELL DISTRIBUTION WIDTH (BEAKER) (test code = 412) 15.4 % 11.6-14.4 H PLATELET COUNT (BEAKER) (test code = 756) 198 K/CU MM 150-450 MEAN PLATELET VOLUME (BEAKER) (test code = 754) 11.4 fL 9.4-12 .4 NUCLEATED RED BLOOD CELLS (BEAKER) (test code = 413) 0 /100 WBC 0 -0 NEUTROPHILS RELATIVE PERCENT (BEAKER) (test code = 429) 79 % LYMPHOCYTES RELATIVE PERCENT (BEAKER) (test code = 430) 10 % MONOCYTES RELATIVE PERCENT (BEAKER) (test code = 431) 9 % EOSINOPHILS RELATIVE PERCENT (BEAKER) (test code = 432) 1 % BASOPHILS RELATIVE PERCENT (BEAKER) (test code = 437) 0 % NEUTROPHILS ABSOLUTE COUNT (BEAKER) (test code = 670) 6.80 K/ L 1.78-5.38 H LYMPHOCYTES ABSOLUTE COUNT (BEAKER) (test code = 414) 0.86 K/ L 1.32-3.57 L MONOCYTES ABSOLUTE COUNT (BEAKER) (test code = 415) 0.75 K/ L 0. 30-0.82 EOSINOPHILS ABSOLUTE COUNT (BEAKER) (test code = 416) 0.10 K/ L 0.04-0.54 BASOPHILS ABSOLUTE COUNT (BEAKER) (test code = 417) 0.01 K/ L 0. 01-0.08 IMMATURE GRANULOCYTES-RELATIVE PERCENT (BEAKER) (test code = 2801) 1 % 0-1 BASIC METABOLIC [id number] 18:13:00* Test Item Value Reference Range Interpretation Comments SODIUM (BEAKER) (test code = 381) 138 meq/L 136-145 POTASSIUM (BEAKER) (test code = 379) 3.6 meq/L 3.5-5.1 CHLORIDE (BEAKER) (test code = 382) 102 meq/L 98-107 CO2 (BEAKER) (test code = 355) 29 meq/L 22-29 BLOOD UREA NITROGEN (BEAKER) (test code = 354) 14 mg/dL 7-21 CREATININE (BEAKER) (test code = 358) 0.97 mg/dL 0.57-1.25 GLUCOSE RANDOM (BEAKER) (test code = 652) 115 mg/dL 70-105 H CALCIUM (BEAKER) (test code = 697) 8.6 mg/dL 8.4-10.2 EGFR (BEAKER) (test code = 1092) 74 mL/min/1.73 sq m ESTIMATED GFR IS NOT ACCURATE CREATININE CLEARANCE IN PREDICTING GLOMERULAR FILTRATION RATE. ESTIMATED GFR IS NOT APPLICABLE FOR DIALYSIS PATIENTS. Sour Bleaching Pleater ID - NTPCBC W/PLT COUNT & AUTO [id number] 17:53:00* Test Item Value Reference Range Interpretation Comments WHITE BLOOD CELL COUNT (BEAKER) (test code = 775) 9.1 K/ L 3.5- 10.5 RED BLOOD CELL COUNT (BEAKER) (test code = 761) 4.21 M/ L 4.63-6 .08 L HEMOGLOBIN (BEAKER) (test code = 410) 11.4 GM/DL 13.7-17.5 L HEMATOCRIT (BEAKER) (test code = 411) 37.5 % 40.1-51.0 L MEAN CORPUSCULAR VOLUME (BEAKER) (test code = 753) 89.1 fL 79. 0-92.2 MEAN CORPUSCULAR HEMOGLOBIN (BEAKER) (test code = 751) 27.1 pg 25.7-32.2 MEAN CORPUSCULAR HEMOGLOBIN CONC (BEAKER) (test code = 752) 30.4 GM/DL 32.3-36.5 L RED CELL DISTRIBUTION WIDTH (BEAKER) (test code = 412) 15.6 % 11.6-14.4 H PLATELET COUNT (BEAKER) (test code = 756) 243 K/CU MM 150-450 MEAN PLATELET VOLUME (BEAKER) (test code = 754) 12.0 fL 9.4-12 .4 NUCLEATED RED BLOOD CELLS (BEAKER) (test code = 413) 0 /100 WBC 0 -0 NEUTROPHILS RELATIVE PERCENT (BEAKER) (test code = 429) 81 % LYMPHOCYTES RELATIVE PERCENT (BEAKER) (test code = 430) 9 % MONOCYTES RELATIVE PERCENT (BEAKER) (test code = 431) 9 % EOSINOPHILS RELATIVE PERCENT (BEAKER) (test code = 432) 1 % BASOPHILS RELATIVE PERCENT (BEAKER) (test code = 437) 0 % NEUTROPHILS ABSOLUTE COUNT (BEAKER) (test code = 670) 7.37 K/ L 1.78-5.38 H LYMPHOCYTES ABSOLUTE COUNT (BEAKER) (test code = 414) 0.79 K/ L 1.32-3.57 L MONOCYTES ABSOLUTE COUNT (BEAKER) (test code = 415) 0.77 K/ L 0. 30-0.82 EOSINOPHILS ABSOLUTE COUNT (BEAKER) (test code = 416) 0.08 K/ L 0.04-0.54 BASOPHILS ABSOLUTE COUNT (BEAKER) (test code = 417) 0.02 K/ L 0. 01-0.08 IMMATURE GRANULOCYTES-RELATIVE PERCENT (BEAKER) (test code = 2801) 0 % 0-1 OXYGEN SATURATION, [id number] 17:43:00* Test Item Value Reference Range Interpretation Comments O2 SATURATION (MEASURED) (BEAKER) (test code = 1455) 46.9 % Surgically obtained culture + gram [id number] 09:52:00* Test Item Value Reference Range Interpretation Comments Result (test code = 6463-4) No growth Gram Stain Result (test code = 1123) No organisms seen [facility]AM [id number] 09:52:00* Test Item Value Reference Range Interpretation Comments CULTURE (BEAKER) (test code = 1095) No growth GRAM STAIN RESULT (BEAKER) (test code = 1123) <1+ White blood cells seen GRAM STAIN RESULT (BEAKER) (test code = 74192) No organisms seen Body fluid culture + gram [id number] 09:51:00* Test Item Value Reference Range Interpretation Comments Result (test code = 6463-4) No growth Gram Stain Result (test code = 1123) No organisms seen [facility] [id number] 09:51:00 * Test Item Value Reference Range Interpretation Comments CULTURE (BEAKER) (test code = 1095) No growth GRAM STAIN RESULT (BEAKER) (test code = 1123) 2+ White blood cells seen GRAM STAIN RESULT (BEAKER) (test code = 47549) No organisms seen BODY FLUID CULTURE + GRAM [id number] 09:51:00* Test Item Value Reference Range Interpretation Comments CULTURE (BEAKER) (test code = 1095) No growth GRAM STAIN RESULT (BEAKER) (test code = 1123) <1+ White blood cells seen GRAM STAIN RESULT (BEAKER) (test code = 44727) No organisms seen BASIC METABOLIC [id number] 09:38:00* Test Item Value Reference Range Interpretation Comments SODIUM (BEAKER) (test code = 381) 136 meq/L 136-145 POTASSIUM (BEAKER) (test code = 379) 3.9 meq/L 3.5-5.1 Specimen slightly hemolyzed CHLORIDE (BEAKER) (test code = 382) 104 meq/L 98-107 CO2 (BEAKER) (test code = 355) 25 meq/L 22-29 BLOOD UREA NITROGEN (BEAKER) (test code = 354) 15 mg/dL 7-21 CREATININE (BEAKER) (test code = 358) 0.87 mg/dL 0.57-1.25 Specimen slightly hemolyzed GLUCOSE RANDOM (BEAKER) (test code = 652) 106 mg/dL 70-105 H CALCIUM (BEAKER) (test code = 697) 8.5 mg/dL 8.4-10.2 EGFR (BEAKER) (test code = 1092) 84 mL/min/1.73 sq m ESTIMATED GFR IS NOT ACCURATE CREATININE CLEARANCE IN PREDICTING GLOMERULAR FILTRATION RATE. ESTIMATED GFR IS NOT APPLICABLE FOR DIALYSIS PATIENTS. Sour Bleaching Pleater ID - NTPCBC W/PLT COUNT & AUTO [id number] 09:34:00* Test Item Value Reference Range Interpretation Comments WHITE BLOOD CELL COUNT (BEAKER) (test code = 775) 10.3 K/ L 3.5- 10.5 RED BLOOD CELL COUNT (BEAKER) (test code = 761) 3.89 M/ L 4.63-6 .08 L HEMOGLOBIN (BEAKER) (test code = 410) 11.1 GM/DL 13.7-17.5 L HEMATOCRIT (BEAKER) (test code = 411) 34.1 % 40.1-51.0 L MEAN CORPUSCULAR VOLUME (BEAKER) (test code = 753) 87.7 fL 79. 0-92.2 MEAN CORPUSCULAR HEMOGLOBIN (BEAKER) (test code = 751) 28.5 pg 25.7-32.2 MEAN CORPUSCULAR HEMOGLOBIN CONC (BEAKER) (test code = 752) 32.6 GM/DL 32.3-36.5 RED CELL DISTRIBUTION WIDTH (BEAKER) (test code = 412) 15.6 % 11.6-14.4 H PLATELET COUNT (BEAKER) (test code = 756) 232 K/CU MM 150-450 MEAN PLATELET VOLUME (BEAKER) (test code = 754) 12.3 fL 9.4-12 .4 NUCLEATED RED BLOOD CELLS (BEAKER) (test code = 413) 0 /100 WBC 0 -0 NEUTROPHILS RELATIVE PERCENT (BEAKER) (test code = 429) 81 % LYMPHOCYTES RELATIVE PERCENT (BEAKER) (test code = 430) 9 % MONOCYTES RELATIVE PERCENT (BEAKER) (test code = 431) 9 % EOSINOPHILS RELATIVE PERCENT (BEAKER) (test code = 432) 0 % BASOPHILS RELATIVE PERCENT (BEAKER) (test code = 437) 0 % NEUTROPHILS ABSOLUTE COUNT (BEAKER) (test code = 670) 8.41 K/ L 1.78-5.38 H LYMPHOCYTES ABSOLUTE COUNT (BEAKER) (test code = 414) 0.88 K/ L 1.32-3.57 L MONOCYTES ABSOLUTE COUNT (BEAKER) (test code = 415) 0.94 K/ L 0. 30-0.82 H EOSINOPHILS ABSOLUTE COUNT (BEAKER) (test code = 416) 0.03 K/ L 0.04-0.54 L BASOPHILS ABSOLUTE COUNT (BEAKER) (test code = 417) 0.01 K/ L 0. 01-0.08 IMMATURE GRANULOCYTES-RELATIVE PERCENT (BEAKER) (test code = 2801) 1 % 0-1 Lactic Acid, [id number] 09:30:00* Test Item Value Reference Range Interpretation Comments Lactate, Art (test code = 9694) 0.8 mmol/L 0.5-2.2 DUDLEY (test code = DUDLEY) Sour Bleaching Pleater ID - NTP Lab Interpretation (test code = 37776-9) [facility] [id number] 09:30:00* Test Item Value Reference Range Interpretation Comments LACTATE BLOOD ARTERIAL (2) (BEAKER) (test code = 2874) 0.8 mmol/L 0.5-2.2 Sour Bleaching Pleater ID - NTPBLOOD GAS, [id number] 09:15:00* Test Item Value Reference Range Interpretation Comments PH ARTERIAL (BEAKER) (test code = 383) 7.48 7.35-7.45 H PCO2 ARTERIAL (BEAKER) (test code = 384) 39 mmHg 35-45 PO2 ARTERIAL (BEAKER) (test code = 385) 228 mmHg 80-90 H O2 SATURATION ARTERIAL (BEAKER) (test code = 386) 99.6 % 96.0 -97.0 H HCO3 ARTERIAL (BEAKER) (test code = 388) 28 mmol/L 21-29 BASE EXCESS ARTERIAL (BEAKER) (test code = 387) 4.3 mmol/L -2.0-3 .0 H PATIENT TEMPERATURE (BEAKER) (test code = 1818) 37.0 C FIO2 (BEAKER) (test code = 1819) 28.0 % RAD, CHEST, 1 VIEW, NON [id number] 04:43:00Reason for exam:->sob, fever. new admitFINAL REPORT RAD, CHEST, 1 VIEW, NON DEPT INDICATION: sob, fever. new admit COMPARISON: Prior day's exam FINDINGS: Portable frontal view of the chest. IMPRESSION: Support Lines: Stable. Lungs and pleura: Unchanged airspace and pleural opacities. No pneumothorax.Heart and mediastinum: Stable contours. Additional findings: Changed extensive subcutaneous emphysema in the left neck and chest wall. Signed: Shala Al MDReport Verified Date/Time: 08/24/2019 04:43:10 W/PLT COUNT & AUTO [id number] 01:45:00* Test Item Value Reference Range Interpretation Comments WHITE BLOOD CELL COUNT (BEAKER) (test code = 775) 13.2 K/ L 3.5- 10.5 H RED BLOOD CELL COUNT (BEAKER) (test code = 761) 3.80 M/ L 4.63-6 .08 L HEMOGLOBIN (BEAKER) (test code = 410) 10.7 GM/DL 13.7-17.5 L HEMATOCRIT (BEAKER) (test code = 411) 33.4 % 40.1-51.0 L MEAN CORPUSCULAR VOLUME (BEAKER) (test code = 753) 87.9 fL 79. 0-92.2 MEAN CORPUSCULAR HEMOGLOBIN (BEAKER) (test code = 751) 28.2 pg 25.7-32.2 MEAN CORPUSCULAR HEMOGLOBIN CONC (BEAKER) (test code = 752) 32.0 GM/DL 32.3-36.5 L RED CELL DISTRIBUTION WIDTH (BEAKER) (test code = 412) 15.5 % 11.6-14.4 H PLATELET COUNT (BEAKER) (test code = 756) 218 K/CU MM 150-450 MEAN PLATELET VOLUME (BEAKER) (test code = 754) 12.1 fL 9.4-12 .4 NUCLEATED RED BLOOD CELLS (BEAKER) (test code = 413) 0 /100 WBC 0 -0 NEUTROPHILS RELATIVE PERCENT (BEAKER) (test code = 429) 85 % LYMPHOCYTES RELATIVE PERCENT (BEAKER) (test code = 430) 5 % MONOCYTES RELATIVE PERCENT (BEAKER) (test code = 431) 9 % EOSINOPHILS RELATIVE PERCENT (BEAKER) (test code = 432) 0 % BASOPHILS RELATIVE PERCENT (BEAKER) (test code = 437) 0 % NEUTROPHILS ABSOLUTE COUNT (BEAKER) (test code = 670) 11.21 K/ L 1.78-5.38 H LYMPHOCYTES ABSOLUTE COUNT (BEAKER) (test code = 414) 0.70 K/ L 1.32-3.57 L MONOCYTES ABSOLUTE COUNT (BEAKER) (test code = 415) 1.18 K/ L 0. 30-0.82 H EOSINOPHILS ABSOLUTE COUNT (BEAKER) (test code = 416) 0.00 K/ L 0.04-0.54 L BASOPHILS ABSOLUTE COUNT (BEAKER) (test code = 417) 0.01 K/ L 0. 01-0.08 IMMATURE GRANULOCYTES-RELATIVE PERCENT (BEAKER) (test code = 2801) 1 % 0-1 [id number] 01:39:00* Test Item Value Reference Range Interpretation Comments MAGNESIUM (BEAKER) (test code = 627) 2.2 mg/dL 1.6-2.6 Sour Bleaching Pleater ID - DBBASIC METABOLIC [id number] 01:39:00* Test Item Value Reference Range Interpretation Comments SODIUM (BEAKER) (test code = 381) 136 meq/L 136-145 POTASSIUM (BEAKER) (test code = 379) 3.6 meq/L 3.5-5.1 CHLORIDE (BEAKER) (test code = 382) 103 meq/L 98-107 CO2 (BEAKER) (test code = 355) 26 meq/L 22-29 BLOOD UREA NITROGEN (BEAKER) (test code = 354) 18 mg/dL 7-21 CREATININE (BEAKER) (test code = 358) 0.94 mg/dL 0.57-1.25 GLUCOSE RANDOM (BEAKER) (test code = 652) 132 mg/dL 70-105 H CALCIUM (BEAKER) (test code = 697) 8.3 mg/dL 8.4-10.2 L EGFR (BEAKER) (test code = 1092) 77 mL/min/1.73 sq m ESTIMATED GFR IS NOT ACCURATE CREATININE CLEARANCE IN PREDICTING GLOMERULAR FILTRATION RATE. ESTIMATED GFR IS NOT APPLICABLE FOR DIALYSIS PATIENTS. Sour Bleaching Pleater ID - DBLACTIC ACID, [id number] 01:29:00* Test Item Value Reference Range Interpretation Comments LACTATE BLOOD ARTERIAL (2) (BEAKER) (test code = 2874) 1.0 mmol/L 0.5-2.2 Sour Bleaching Pleater ID - DBBLOOD GAS, [id number] 01:20:00* Test Item Value Reference Range Interpretation Comments PH ARTERIAL (BEAKER) (test code = 383) 7.49 7.35-7.45 H PCO2 ARTERIAL (BEAKER) (test code = 384) 37 mmHg 35-45 PO2 ARTERIAL (BEAKER) (test code = 385) 88 mmHg 80-90 O2 SATURATION ARTERIAL (BEAKER) (test code = 386) 97.3 % 96.0 -97.0 H HCO3 ARTERIAL (BEAKER) (test code = 388) 27 mmol/L 21-29 BASE EXCESS ARTERIAL (BEAKER) (test code = 387) 4.0 mmol/L -2.0-3 .0 H PATIENT TEMPERATURE (BEAKER) (test code = 1818) 37.0 C FIO2 (BEAKER) (test code = 1819) 28.0 % OXYGEN SATURATION, [id number] 01:18:00* Test Item Value Reference Range Interpretation Comments O2 SATURATION (MEASURED) (BEAKER) (test code = 1455) 58.6 % BASIC METABOLIC [id number] 18:02:00* Test Item Value Reference Range Interpretation Comments SODIUM (BEAKER) (test code = 381) 136 meq/L 136-145 POTASSIUM (BEAKER) (test code = 379) 3.7 meq/L 3.5-5.1 CHLORIDE (BEAKER) (test code = 382) 104 meq/L 98-107 CO2 (BEAKER) (test code = 355) 24 meq/L 22-29 BLOOD UREA NITROGEN (BEAKER) (test code = 354) 18 mg/dL 7-21 CREATININE (BEAKER) (test code = 358) 0.99 mg/dL 0.57-1.25 GLUCOSE RANDOM (BEAKER) (test code = 652) 140 mg/dL 70-105 H CALCIUM (BEAKER) (test code = 697) 8.4 mg/dL 8.4-10.2 EGFR (BEAKER) (test code = 1092) 72 mL/min/1.73 sq m ESTIMATED GFR IS NOT ACCURATE CREATININE CLEARANCE IN PREDICTING GLOMERULAR FILTRATION RATE. ESTIMATED GFR IS NOT APPLICABLE FOR DIALYSIS PATIENTS. Sour Bleaching Pleater ID - DBOXYGEN SATURATION, [id number] 17:28:00* Test Item Value Reference Range Interpretation Comments O2 SATURATION (MEASURED) (BEAKER) (test code = 1455) 62.1 % LACTIC ACID, [id number] 15:49:00* Test Item Value Reference Range Interpretation Comments LACTATE BLOOD ARTERIAL (2) (BEAKER) (test code = 2874) 1.1 mmol/L 0.5-2.2 Specimen slightly hemolyzed Sour Bleaching Pleater ID - SHANNAN CCBC W/PLT COUNT & AUTO [id number] 15:30:00* Test Item Value Reference Range Interpretation Comments WHITE BLOOD CELL COUNT (BEAKER) (test code = 775) 14.8 K/ L 3.5- 10.5 H RED BLOOD CELL COUNT (BEAKER) (test code = 761) 3.84 M/ L 4.63-6 .08 L HEMOGLOBIN (BEAKER) (test code = 410) 10.6 GM/DL 13.7-17.5 L HEMATOCRIT (BEAKER) (test code = 411) 34.0 % 40.1-51.0 L MEAN CORPUSCULAR VOLUME (BEAKER) (test code = 753) 88.5 fL 79. 0-92.2 MEAN CORPUSCULAR HEMOGLOBIN (BEAKER) (test code = 751) 27.6 pg 25.7-32.2 MEAN CORPUSCULAR HEMOGLOBIN CONC (BEAKER) (test code = 752) 31.2 GM/DL 32.3-36.5 L RED CELL DISTRIBUTION WIDTH (BEAKER) (test code = 412) 15.5 % 11.6-14.4 H PLATELET COUNT (BEAKER) (test code = 756) 206 K/CU MM 150-450 MEAN PLATELET VOLUME (BEAKER) (test code = 754) 11.8 fL 9.4-12 .4 NUCLEATED RED BLOOD CELLS (BEAKER) (test code = 413) 0 /100 WBC 0 -0 NEUTROPHILS RELATIVE PERCENT (BEAKER) (test code = 429) 90 % LYMPHOCYTES RELATIVE PERCENT (BEAKER) (test code = 430) 3 % MONOCYTES RELATIVE PERCENT (BEAKER) (test code = 431) 6 % EOSINOPHILS RELATIVE PERCENT (BEAKER) (test code = 432) 0 % BASOPHILS RELATIVE PERCENT (BEAKER) (test code = 437) 0 % NEUTROPHILS ABSOLUTE COUNT (BEAKER) (test code = 670) 13.32 K/ L 1.78-5.38 H LYMPHOCYTES ABSOLUTE COUNT (BEAKER) (test code = 414) 0.40 K/ L 1.32-3.57 L MONOCYTES ABSOLUTE COUNT (BEAKER) (test code = 415) 0.91 K/ L 0. 30-0.82 H EOSINOPHILS ABSOLUTE COUNT (BEAKER) (test code = 416) 0.00 K/ L 0.04-0.54 L BASOPHILS ABSOLUTE COUNT (BEAKER) (test code = 417) 0.02 K/ L 0. 01-0.08 IMMATURE GRANULOCYTES-RELATIVE PERCENT (BEAKER) (test code = 2801) 1 % 0-1 BLOOD GAS, [id number] 15:28:00* Test Item Value Reference Range Interpretation Comments PH ARTERIAL (BEAKER) (test code = 383) 7.51 7.35-7.45 H PCO2 ARTERIAL (BEAKER) (test code = 384) 34 mmHg 35-45 L PO2 ARTERIAL (BEAKER) (test code = 385) 74 mmHg 80-90 L O2 SATURATION ARTERIAL (BEAKER) (test code = 386) 96.1 % 96.0 -97.0 HCO3 ARTERIAL (BEAKER) (test code = 388) 27 mmol/L 21-29 BASE EXCESS ARTERIAL (BEAKER) (test code = 387) 3.7 mmol/L -2.0-3 .0 H PATIENT TEMPERATURE (BEAKER) (test code = 1818) 37.0 C [id number] 15:22:00Medical Cytology Report Case: [id number] Authorizing Provider: Eduardo Shafer, Collected: 08/21/20191948 Ordering Location: [facility] CV Recovery Room 2 Received: 08/22/2019 0916 Pathologist: Bryon Brown MD Specimen: Pleural, Pleural fluid PLEURAL FLUID (CYTOSPINS AND CELL BLOCK): - NEGATIVE FOR MALIGNANCY - REACTIVE MESOTHELIAL CELLS PRESENT (SEE COMMENT) Signing Pathologist Direct Phone Line: [phone] signed by Bryon Brown MD on 08/23/2019 at 3:22 PMCytospins and cell block sections show scattered mesothelial cells with reactive atypia in a background of mixed inflammatory cells (predominantly neutrophils) and macrophages. Immunostains performed on cell block sections show the mesothelial cells are positive for calretinin, CK7, and CAM5.2, while MOC31 is predominantly negative. The findings are supportive of the above diagnosis. 06212, 41759, 96944, 15951 x 3Pleural effusion, history of prostate cancerPLEURAL [id number] mls jordy fluid; 4 cytospins, cell blockCollected: [id number]: [id number] interpretation of this case included the use of immunohistochemistry or special stains.Control Slides Examined: In-house known positive controls were evaluated along with the test tissue. These contr ol slides run alongside of the patients sample show appropriate staining. Du[employer]ating Machine Serv[employer] al positive and negative controls when available are evaluated Immunohistochemis try technical testing was performed at [facility], Patholo gy Laboratory where it was developed and its performance characteristics were de termined. It has not been cleared or approved by the U.S. Food and Drug Administ ration. The FDA has determined that such clearance or approval is not necessary. The test is used for clinical purposes. It should not be regarded as investigat ional or for research. This laboratory is certified under the Clinical Laborator y Improvement Amendments of 1988 (CLIA-88) as qualified to perform high complexi ty clinical laboratory testing.[facility], Department of P athology, [address] [place] [id number], [facility], [address] [place] [phone], [facility], [address] [place] [address], [id number] 15:01:00* Test Item Value Reference Range Interpretation Comments Case Report (test code = 104) Medical Cytology Report Case: [id number] Authorizing Provider: Eduardo Shafer, Collected: 08/21/20192014 Ordering Location: [facility] CV Recovery Room 2 Received: 08/22/2019 0913 Pathologist: Bryon Brown MD Specimen: Pericardial DIAGNOSIS (test code = 3220) [id number]vchPLgHUnhtuToJTmlx2HjU7KmElYdFOlpbeLoPACe YlzccxfbVDXvLDU3xxSjWDSdNZjdIFYxHUhnHi5uwXTmgKdsOdSzYJOib9cijeRRbdwpxAo3a3dkNAJi LgE8tVIsPMckW0ieooQsxBYsJNXnVLp3oO16RORiyA 8vsBDdMBghvwRfBlN0ZFtiRDYmJuF7TEDcuBTjZHNtX4ynPIYhOWroQFKiJEakkYOsGSF8eCnvq7M2vM MxaETkkQmrDyMvGiAlXVOOf3PwETb2nWwrU0XyDZBnZjC3iNGhYHStFRglDTAwSNEiqhH3xM64VWobfz V0wCFbt1Ccz13ql651xB9huVZzJZZ4ZRHxBLPdxIPw RJFyVLB9HVMllHQkG3l5IvLjvUWuI7X1JrPotYYtS9U8FaMzwDMtW1O6UzEhgUBmGAEabMIzZu3gwGCi pDCbjg6yhn55GDI0t9UoxBjyPKG3HWM0OjYtVl7fhENbTCXyQA4pEoUcbHDkPCEhnv15rReoXJpydfUz sC7lRmOkTHZyjZZiORUqTL2hgTCwNNNqbW6zadooZX OuYrXxqrikEIPqrQxbtlOsVf8fcAxfSNF0ISrhQ0mxqL5vSeO2ZCaeL1koxQ0qPHd0ERarkMR5DFBqzY 6jEH5yscgxg5grZaNtJZ7igbply2qlEmNzWG6nsgb2o2oaZiNyQW8uzcglr4weRrHjMZvbBHDfnvgdFM Djr7CiajsnJTQas6GpM8BytRagY58snKmoH94wSVBr bHdsrP9mcEgwxQ8rUsZdEtVjJZogeHkwlTTdhxijBLlyfwVhURdmfrotEDWpLNsbS5zcUuWcBHTnvZsv NTacw2RxGBXhZDUnIkEnELGVVBHLYdGXDYfeYzkPHMWmFAGVNH0NXOmNEuCXOhLyB1WWOSCLCJ3GBbb7 YDmepmVjKQJyVPAUVKdFUVrZDNEBJ8JeKWPCWJxKOE 3SYBKdF3SMFSSCHA6PGjGeCIYzumccPRR8k5pqbHYlOIWvzJHjPEAkFCyadmVmTSVmPjynrufmZKNfOR D5laOfHWUrLBnzELGbDIlnSh0wcDLldTmkFwHkCWPym3loieRHhlxgtVt3j2lzSAKvCpX4fUEoRVnhC7 xkduKfxCQxVCHtXJz3sG50VZVmqB1xnYXbDSxkedAz SgN5QPyzMLRdEgF5EVStqHPgVCPqF6mkJBLvSTgvLVHlVIhwtNBbCHR4uCgaw6D8kSJtcQApxMedJeBn HaGaPpWEc9FwKEm4nZnoD3LbRGWfPlW9zOVyRAUcDIngBSQgZDSggrH7xU91MDpwhlV0mKEwz4Gxp17x z382vU1urIBpPOZ4WGWeCLLtxOJaZNMkYBR4FHSkwZ PfG6qrKKLfPS6uhyawIBjvMJjdVZAnrMB6OEKmsTTpE5XnATHqRIdoGRNchsa9PlZbAu5noOUpqFntUK ggx8xnn7drzLYpLit1JBVcRkJoLgncLJooq2Byk6upDYFzyq1qHAU4kMRfrEbjf0E6xIEkXYVghTPbPS ThSQ1vpKNdOFAufW8mlcwjFRLvJyJcbqrdSKNdyGbo sdKeXa7nxSplOGX5BYqsS8aijT2yAlE1KFbvC3ulaL6mOWv6JFfiYCDdkOL3ldR9LQTmuBMfQ4KnoN3q FHDgCJ6qzsq6v4xdJOT5BZcaBULdNhY7veN0ILHobKShJCUkrCdjWZipe482JEU3MaUtSJZnx5AaK3Rt mUuqU85wfZjoL00rQUDmqEtkyX6oxJlngA7rOoOiWh UsAUjafOvgFP3fCUVpQ7pqeMHkNRZwINLeL6lmUySxyL4bdRrxLPybslRyMYDnLaz2ACNztPAhGSMsUj o1CTElKUUmW12dfpwrQID4jK2sf2ytp8EmWUnlKEV8JOOjf32fQYiacyK4AJluYd1wQqMyGQV4URekHF J9fQ== COMMENT (test code = 3359) m6vrlIEjPJRqeHWwYgHrXBKsSUIjp4vhHDYvvAEtQuBcSmSgYnDhMrgpyCKhADHzBkQgb3oih016bOJp p8bgATDpTeD6qEQpMJFksTKsG615g7mhc2uwcjWstRC1EELrQTW3EOswgfWiqjO5IPmwoECzRbG7BJzv tvIdQBhtudKnapVrGnm5OPDyB071SBV8xNrbi6fvJG M6CUQtHQZtVhHqDd5zlXInF199IZXdSKYTGAUllNm6CPBgmmEsfwOcbGUXf602K288l4anNPEhvnBxbF gAkgzkn7csE602SVHowZMjhcEuOfYoDXMlgPZmiHJ9DHKcSO0kgwlvUoVfHZ2qlvgwAmXeJN8nqdf6Po OaUC2smglkNpMeYHkjNCViebimLYUix6EqsrfnEF8b Z6Fue6I9pE2jwAAbTZGwhOYiLdLgSPVmml4dwFGbHEsdr1VpMUD6szC8oBQjqCEhAXEoWS60Eliui8Jm ExssWDB3PPGlivPnh5Dhk9liDpUicpHjH6spV3EpNZQmWKOuLNNiLyHsfiDek8Wmu4InfMBpiUf4h7da WQPtRHOaoYmty3mkJHR8SMJmZ9Z5bVDzh5bsZSvoPD AggPP5mwszBKfvPJQbikX2cptyIMlbYCMlrCW0xlgkVKmeAFHrByS3llbzYQmdFNBuJBL3BJfbi400DS B6RZujBrhuNWxhCERfrnTkqaCyoRpmFDDrHWGqGLnbQGLmZQuqYVWmFIHyDkQweYkiyDntdK5nWmQrDg KaRRdzDT4kLWGmC2nqyLQbHGGmVEClK0jgSpFhtD2t nYdyUUqoncIqKDJ1fY4zdVasrjIeouXpV8ZajXPtdY9cieVzBSS3jY1wttDgmO19DZCsEXG6ZADzULMi DZUwxUpjzAirfFGkWDfztpZ0sVTuLULuGFY1sSUoIQPhLK3bVBFqSBqziUWmb4T9YTwripSzLRKuw2Jk PXQar67eP5BrxVRlgS7utkFyGMU7lC2dftFonG11PH OmIYHzGYZotGgfwNuvpSAdDQvdmsBdqqOjtX3pqEOlqoVtOb4gRQOjuATxdOomxI1nGUZYCdKxtfLzL4 QRTH1cYDL2uPwxZPROK3KgKJJlztJkiySnh60drfVueVn0YC8sI1Q9lPGuTiAHuMZhEbzcFTeiY8EdBY MhTIS7gTHjynKjigMub3PfxEjuYFPmq9QsECLtBTyot5Bcia9eVABgjh9= CPT Code(s) (test code = 3357) p5qfgEBlXZJhhKZwMsEmNRVkNNJov4jlPQIjgEKvBiXuDxObKoIfOcgchFRcPHZdAuDqf7sgm367fEJz n6mqPQJvWuJ9fXIaCQUjvLBjM349GKFsNWeew3tor6AyHVWqpALjv5H6XAWMdgkxtLj8tItgD03on4W5 RdulV0nvUYAsFTFzE5VfQD5wHCCcZyh5PXW5PTT4NX TjHGSrL1GiBA9oANSayFOfZWj0v5gdyMapYUPuKNM8k7nbAOxlkgPrHL4yox4fkOk0t7yjydZhFEQpGN XnbWVIRKGsB5YcfCzpPz1gtFi2sNxbTfzfFWK9Ytr5LV3wcd06mzc6gSumOEAdqciqNjD9UKmhEFMwer kgQGl9JMdhXGWhyDejGIlfVCNlsjtlPXdpFSHolXeg IBqmHUKoByogETuvSTYqUNQ6CRfxb233XZX4HMoqz3lgc5preTRkQkm4YUGiYrKyBnqlOKjna2Tmp8hj DJVtfc5gTJP1eAZeuEbgq1N4oONlGFFuzZKxloFkDLIzCiD5CFqyGK0mqr23FVFcQNO1hx3vnVHliMug pfLixVZdYUqwZ7IpKAHxp731ZWMrS6JmQCEqk8L6zq CnIgSlZPXxaXP7gtD8NZHwSEh1zGHolkJ4bfWkoNMrQ0mtsF78CeFihJIcN8IykE15MsVnpBBkT4UnfP 33DjBfwHMsK4DwkB15LbEqsNDwGQAjkJOtHj8fjATugITxp5PgkTUaLBobW81ar150XIRkhbXdG1scwU RkjljobUMkjkuiYUltdxS0WGNcHZTmFVyzKFZkDKAl LtPhlTIjSuTfEoRpwTphjZywXNzfNbSuGMMxKPbkI8qlGxKyXiCdXVB3VDDiUYzoXDgyNQJhCVg0InOq CLN1GWA2LDC8REPmmPAsaN== CLINICAL DATA (test code = 3355) v1zlzVQxZECasKFfMqYyTHSuUKBpp8wtMAWllTLhUyVzBqMvYcCePvitdDRmQJPoFkQqs6viu910xGBv m5qfMMOxFoU7sLQxXNHucMAvW860a1vzg4gyweWygJN1YEBoAQE4BTstycQcnsT3CEvkoJYuIaH2TYow lyAwJXcymfYzbwBoTig5MVBtP411NTS5wDndx5msFW I9FPDsCUGcMqOhAc7xlBZiT576TXQdROFJDSRuuQg2HLXecuEpoxKffJPNd689G045p4uiQTSxkjOedP yKcvjle5gwH464XKVnjXVjceIpClXrGFZrxZKpwHD3GVJhBO0gjpkpCuJzOD8vrobjBqLiXV8sssp9Ad UmUL8cqasiThKjNZnaSJLrucmtQWBgs6JslsynZA4c N7Dut0D2iR2brMWeMUQuzRJkRuRlROFyhc8uyMFaPIefo3SjIZM2sgE5xITikJZdDZIbJB74Krcoh6Ng XbkxYES8EDWwppYpa2Fsz8fmRhDjfcYiF8boF1YzIYVmDAKlPJQlDdLizbAek4Ibh6PxrSZebEf1e8zs OXFqABLwgKyhd9tbYOO1FXUpO1G4uKBob7fmSKcxSF LdyEI7owfjVOvqEESrwxB0uguhZDvtDPOyrZG7kigpOAfeYOCnXsV9wprzRZjhIGTwYCG7MSfej243EL A0IFuxFcdbXWscCFYmnkEbliYufBqjHMFjQSMmIJmlAFCvKXyiRCFiYAUxZsVqlVzgrOhevQ1xRgPgAu TlPAriPA1vVEXlB2ydvRXqOZLtANFkQ9vsGoVtqP3j lIriZJkicbHqYLDksbzaVOCwwEDjPZFiCyEfqM7dPOOoeCF4z9J9BQ5wVMHoy9N0JSKnOBIobwNpmjse YXJ9 SPECIMEN SOURCE (test code = 3377) v0glqMPeFKCxoLRuMzMlOFSiXSPxg6cuWQKptZMzTtBbSgEjAlOeGvnruGZgXNCsJdPpt3rwc134gYZi t7kxBZQnAiH4mACcOSAjxLTfM051z2ehk7hrxpXqwOB3FLEvYTG3VKydtmMwkuJ8MTcnoKBdKtO3FZzp uvTmFZoxuzEimgLyHtn4NTJpU925DWK1gMxoj3sqSU D1LAHpEPIwZeEaXq4tnBTdC045GGExKBSOPHDgfRk1CBScluNcqgDmzQLNv904A924l9edMTTnznOetQ yFbtkab8fhN950ZWRpbFBeldHsNqDpRCWsnTQxdQW8LSQhSR8icliyYaSnKV0ltxklOgGwLH3usnp5Tx NaWM7degdqYnQgHFjbJEPzrxcoQJSca3PtyzizPG8g L2Dqu7L2sG7mfCKnZWSaxRGpGhNkUMXqfg9wkTNkIIadh7McWAF0syO9yPMfgSHpKYTsEZ31Rtlgh4Lr JqruRCH5CUFyzvOsy6Gub0iwEvUeltPfJ5hfE4RiZKFhYTKqNNLpSuUfzxJkb0Yjw0NzkZTtdYq6z8qe LMHgEYFxzUxsa7viKMN7PCIoA5D0vMYgc8ahYYpjDI YpfHX3auijJIpcDYPgpjF2pirpCJasCDOywEV1sgcnEXnwTLTzFjQ8hbpnYDmuMZEoLPH1WRngk299YJ V0LQalZsavHDqmJNIqqvQtqiBkwImmGEZyAUKrWPshLZWjPAkzMEHkANRaMxXmgDgdgTbinB9zHcBkEs ZgQFkoGF9dGZGsS4lqpUSvWFPqNCMoK9mbCpCyjW1f aFxmMFxmczIwIFBFUklDQVJESUFMIEZMVUlEIFxwYXJ9 GROSS DESCRIPTION (test code = 3366) k0offCDmWBHphIQiPzGfXQRlLMSwr5avSMCdcDDfIiIaVwHnZoJeOkjywVLxJDFrFoSvh5eqm261mODk f2wsMISdEiX2tKMgUDDoeUDrK901KNAzYYjdz4cup7PkGKCtyCZrm3P7NCVWccuikTf6sPesP31df7K4 KvstA8elVSKyEZEmI7WqHA4zFTNnHjr3VEL8LMY8PT WeECCnX8TxWR1wSZHzuWFmPEy6r3rebPocPNNkTQH4b3ynNBnmchKuYH9cid3teBq7h7hmwyXjIXNlGR YtcAIFLJRjW4UqtPtdGl8lyJo7gMdxWuqjPLU8Njn0XZ6kzo63pbn9rKytYFZgzedjPdF6RFkoNPUtrc mmQAk4BDerPMDtxPcbNYxkDNDwssewBDgfJESroNeb CQpwXGKmIsszFWpkRYBoTUG6DXjod290VYH3KGdsi3rya5ctlKPwKju0NSUnFoScHxuwVBxdw8Igk7th BVZemf5rZDQ7aUCozIysn1I8uQYcDPGcqTMfkvHyCIGlJoR8YMinRZ3tzs52BRBqVIC6ey1yaOShjAsh kgEkeCMqITkrB6ZcFCKaz142WPDhP2CqFIYaq2O3ve WbWfPyASWvxIA3mwT8GLDdJKb0yKSivyX2yuBmoCJwX6vbvG12JkZemJOtD0DheQ74GiZtmPGnL5JjfV 24TmKntISlA6SkqD98UkOscHApLDOmfFJtYh4poQIayXCnp1SreLQmTNtfF25oo724VTDezwEmE8oodV GuwygfgEEdjubhMOqgcfS3UFBuEQUhLVpyAGYlLLRt NqZyrPPkEgNhPnSgnVqexLakMYadFkAmSWGyWPttD5fdUjWqPkVeFwYzBBAmlAgwDGMmx47vqJSuqMWi KWdcRLXbnDEgy6PbabEdGPEchAhmQmelT1bbjSYhSWRekPdlV9WyFStcSGGiDOYjRIYmdrWJCKXyoLOm ZDogMDMxMTIwXHBhcn0= STATEMENT OF ADEQUACY (test code = 2757) Satisfactory SPECIAL STUDIES (test code = 3376) [file] HmaXHpOjUmFwLwuZhryXwdLgrdEcFhQJDsZYryR7drPjQuNjVlKzjcFTN4qU== Gross assessment was performed at (test code = 2777) [facility], Department of Pathology, [address] [place] [address], Technical component was performed at (test code = 2778 ) [facility], Department of Pathology, [address] [place] [address], Professional component was performed at (test code = 2 779) [facility], Department of Pathology, [address] [place], [place] [id number], [facility] 15:01:00Medical Cytology Report Case: [id number] Authorizing Provider: Eduardo Shafer, Collected: 08/21/20192014 Ordering Location: [facility] CV Recovery Room 2 Received: 08/22/2019 0913 Pathologist: Bryon Brown MD Specimen: Pericardial PERICARDIAL FLUID (CYTOSPINS AND CELL BLOCK): - NEGATIVE FOR MALIGNANCY (SEE COMMENT) Signing Pathologist Direct Phone Line: [phone] signed by Bryon Brown MD on 08/23/2019 at 3:01 PMCyt ospins and cell block sections show scattered mesothelial cells with reactive ch anges. Immunostains performed on cell block sections show the mesothelial cells are positive for calretinin, CK7 and CAM5.2, while MOC31 is predominantly negati ve. The findings are supportive of the above diagnosis. 09498, 46124, 93160, 883 41 x 3Pericardial effusion, history of prostate cancerPERICARDIAL FLUID 300 mls bloody fluid; 4 cytospins, cell blockCollected: [id number]: [id number] ryThe interpretation of this case included the use of immunohistochemistry or sp ecial stains.Control Slides Examined: In-house known positive controls were lata luated along with the test tissue. These control slides run alongside of the pa swathi sample show appropriate staining. Internal positive and negative controls when available are evaluated Immunohistochemistry technical testing was perform ed at [facility], Pathology Laboratory where it was handy quiroga and its performance characteristics were determined. It has not been cleared or approved by the U.S. Food and Drug Administration. The FDA has determined th at such clearance or approval is not necessary. The test is used for clinical pu rposes. It should not be regarded as investigational or for research. This labor atory is certified under the Clinical Laboratory Improvement Amendments of 1988 (CLIA-88) as qualified to perform high complexity clinical laboratory testing.Vincenzo lucas [facility], Department of Pathology, [address] [place] [address], [facility], [facility] of [facility], [address] [place] [address], [facility], [facility], [address] [place] [address], RQELG METABOLIC [id number] 12:52:00* Test Item Value Reference Range Interpretation Comments SODIUM (BEAKER) (test code = 381) 135 meq/L 136-145 L POTASSIUM (BEAKER) (test code = 379) 3.8 meq/L 3.5-5.1 Specimen slightly hemolyzed CHLORIDE (BEAKER) (test code = 382) 104 meq/L 98-107 CO2 (BEAKER) (test code = 355) 20 meq/L 22-29 L BLOOD UREA NITROGEN (BEAKER) (test code = 354) 18 mg/dL 7-21 CREATININE (BEAKER) (test code = 358) 1.13 mg/dL 0.57-1.25 Specimen slightly hemolyzed GLUCOSE RANDOM (BEAKER) (test code = 652) 182 mg/dL 70-105 H CALCIUM (BEAKER) (test code = 697) 8.3 mg/dL 8.4-10.2 L EGFR (BEAKER) (test code = 1092) 62 mL/min/1.73 sq m ESTIMATED GFR IS NOT ACCURATE CREATININE CLEARANCE IN PREDICTING GLOMERULAR FILTRATION RATE. ESTIMATED GFR IS NOT APPLICABLE FOR DIALYSIS PATIENTS. Sour Bleaching Pleater ID - KATELYN FLACTIC ACID, [id number] 12:29:00* Test Item Value Reference Range Interpretation Comments LACTATE BLOOD ARTERIAL (2) (BEAKER) (test code = 2874) 1.8 mmol/L 0.5-2.2 Specimen slightly hemolyzed Sour Bleaching Pleater ID - SHANNAN COXYGEN SATURATION, [id number] 12:24:00* Test Item Value Reference Range Interpretation Comments O2 SATURATION (MEASURED) (BEAKER) (test code = 1455) 60.8 % CALCIUM, [id number] 12:22:00* Test Item Value Reference Range Interpretation Comments CALCIUM IONIZED (BEAKER) (test code = 698) 1.11 mmol/L 1.12-1.27 L PH, BLOOD (BEAKER) (test code = 1810) 7.50 HGB/HCT (H&H)-Stat [id number] 12:21:00* Test Item Value Reference Range Interpretation Comments Hemoglobin (test code = 786-4) 11.6 g/dL 13-16.8 L Hematocrit (test code = 4544-3) 34.0 % 40-50 L Lab Interpretation (test code = 80217-8) Abnormal [facility] [id number] 12:21:00* Test Item Value Reference Range Interpretation Comments Glucose (test code = 2345-7) 180 mg/dL 70-110 H Lab Interpretation (test code = 39139-5) [facility] [id number] 12:21:00* Test Item Value Reference Range Interpretation Comments Sodium (test code = 2951-2) 135 meq/L 135-148 Lab Interpretation (test code = 54232-0) Normal [facility] [id number] 12:21:00* Test Item Value Reference Range Interpretation Comments Potassium (test code = 2823-3) 3.5 meq/L 3.6-5.5 L Lab Interpretation (test code = 32867-5) Abnormal [facility] NA-STAT [id number] 12:21:00* Test Item Value Reference Range Interpretation Comments SODIUM (BEAKER) (test code = 381) 135 meq/L 135-148 POTASSIUM-STAT [id number] 12:21:00* Test Item Value Reference Range Interpretation Comments POTASSIUM (BEAKER) (test code = 379) 3.5 meq/L 3.6-5.5 L BLOOD GAS, [id number] 12:21:00* Test Item Value Reference Range Interpretation Comments PH ARTERIAL (BEAKER) (test code = 383) 7.50 7.35-7.45 H PCO2 ARTERIAL (BEAKER) (test code = 384) 33 mmHg 35-45 L PO2 ARTERIAL (BEAKER) (test code = 385) 91 mmHg 80-90 H O2 SATURATION ARTERIAL (BEAKER) (test code = 386) 97.6 % 96.0 -97.0 H HCO3 ARTERIAL (BEAKER) (test code = 388) 25 mmol/L 21-29 BASE EXCESS ARTERIAL (BEAKER) (test code = 387) 2.0 mmol/L -2.0-3 .0 PATIENT TEMPERATURE (BEAKER) (test code = 1818) 37.0 C GLUCOSE-STAT [id number] 12:21:00* Test Item Value Reference Range Interpretation Comments GLUCOSE RANDOM (BEAKER) (test code = 652) 180 mg/dL 70-110 H HGB/HCT (H&H) - STAT [id number] 12:21:00* Test Item Value Reference Range Interpretation Comments HEMOGLOBIN (BEAKER) (test code = 410) 11.6 g/dL 13.0-16.8 L HEMATOCRIT (BEAKER) (test code = 411) 34.0 % 40.0-50.0 L Transesophageal [id number] 10:34:54Ejection FractionSLEH ECHO HEARTLAB MKCKESSON CPACSInterface, External Ris In - 08/23/2019 10:35 AM CDTTransesophageal Echocardiography Report (LAYNE) Demographics Patient Name GRETTA BYRD Date of Study 08/22/2019 Gender Male Visit Number [id number] Race Unknown Room Number 2C22 Number Date of 1935 Referring Eduardo Shafer MD Physician Age 83 year(s) Information Lead Bakari Dean Interpreting Physician EDY Brown Fellow IVETT Ozuna Procedure Type of Study LAYNE procedure:TRANSESOPHAGEAL ECHO Indications:Per icardial effusion.Clinical HistoryARTHRITIS,A-FIB,CANCER,CAD,HTN,THYROID DISEASE ,S/P PERICARDIAL [id number]: 55 inches Weight: 45.36 kg (100 lbs) BSA : 1.31 m^2 BMI: 23.24 kg/m^2HR: 75 bpm BP: 103/45 mmHg Summary Limited 2D exam a nd Doppler exam to address study indication. A oetknpko-sw-ebfsl circumferential pericardial effusion is present. The effusion is 1.5cm anteriorly (RV free wall ) and 2.8cm posteriorly (LA and basal LV). There is stranding within the effusio n suggesting possible fibrinous component. Tamponade physiology was not assessed in this limited TTE. No evidence of RV or RA collapse. Signature Findings Rhythm/BP Regular sinus rhythm during the exam. Left Ventricle The global LV systolic function appears low-normal, qualitatively. Left Atrium LA size by qualitative assessment (unable to measure). LA size is enlarged . Right Ventric le Based on limited views, the right ventricular c hamber size and systolic function are within normal limit s. Right Atrium RA size is probably mildly dilated based on available views. Aortic Valve Mild AoV cusp thickening. Mild AoV cusp calcification. Mitral Valve Mil d MV leaflet thickening. Mild mitral annular calcificatio n. Tricuspid Valve TV structure is normal. Pulmonic Valve PV is not well visualized. Pericardium A txtxtltd-em-kroix circumferentia l pericardial effusion is present. The effusion is 1.5cm anteriorly (RV free wall) and 2.8c m posteriorly (LA and basal LV). There is stranding withi n the effusion suggesting possible fibrinous component. Tamponade physiology was not assessed in this limited TTE. No evidence of RV or RA collapse. IVC/SVC/PA/PV/Pleural The inferior vena cava is not well visualized due to fo reshortened images. A right pleural effusion is noted. [facility], [id number] 10:21:00* Test Item Value Reference Range Interpretation Comments O2 SATURATION (MEASURED) (BEAKER) (test code = 1455) 57.1 % CBC W/PLT COUNT & AUTO [id number] 08:48:00* Test Item Value Reference Range Interpretation Comments WHITE BLOOD CELL COUNT (BEAKER) (test code = 775) 14.9 K/ L 3.5- 10.5 H RED BLOOD CELL COUNT (BEAKER) (test code = 761) 3.72 M/ L 4.63-6 .08 L HEMOGLOBIN (BEAKER) (test code = 410) 10.5 GM/DL 13.7-17.5 L HEMATOCRIT (BEAKER) (test code = 411) 33.0 % 40.1-51.0 L MEAN CORPUSCULAR VOLUME (BEAKER) (test code = 753) 88.7 fL 79. 0-92.2 MEAN CORPUSCULAR HEMOGLOBIN (BEAKER) (test code = 751) 28.2 pg 25.7-32.2 MEAN CORPUSCULAR HEMOGLOBIN CONC (BEAKER) (test code = 752) 31.8 GM/DL 32.3-36.5 L RED CELL DISTRIBUTION WIDTH (BEAKER) (test code = 412) 15.5 % 11.6-14.4 H PLATELET COUNT (BEAKER) (test code = 756) 210 K/CU MM 150-450 MEAN PLATELET VOLUME (BEAKER) (test code = 754) 12.4 fL 9.4-12 .4 NUCLEATED RED BLOOD CELLS (BEAKER) (test code = 413) 0 /100 WBC 0 -0 NEUTROPHILS RELATIVE PERCENT (BEAKER) (test code = 429) 93 % LYMPHOCYTES RELATIVE PERCENT (BEAKER) (test code = 430) 2 % MONOCYTES RELATIVE PERCENT (BEAKER) (test code = 431) 5 % EOSINOPHILS RELATIVE PERCENT (BEAKER) (test code = 432) 0 % BASOPHILS RELATIVE PERCENT (BEAKER) (test code = 437) 0 % NEUTROPHILS ABSOLUTE COUNT (BEAKER) (test code = 670) 13.77 K/ L 1.78-5.38 H LYMPHOCYTES ABSOLUTE COUNT (BEAKER) (test code = 414) 0.32 K/ L 1.32-3.57 L MONOCYTES ABSOLUTE COUNT (BEAKER) (test code = 415) 0.67 K/ L 0. 30-0.82 EOSINOPHILS ABSOLUTE COUNT (BEAKER) (test code = 416) 0.00 K/ L 0.04-0.54 L BASOPHILS ABSOLUTE COUNT (BEAKER) (test code = 417) 0.01 K/ L 0. 01-0.08 IMMATURE GRANULOCYTES-RELATIVE PERCENT (BEAKER) (test code = 2801) 1 % 0-1 CBC W/PLT COUNT & AUTO [id number] 05:36:00* Test Item Value Reference Range Interpretation Comments WHITE BLOOD CELL COUNT (BEAKER) (test code = 775) 14.9 K/ L 3.5- 10.5 H RED BLOOD CELL COUNT (BEAKER) (test code = 761) 3.57 M/ L 4.63-6 .08 L HEMOGLOBIN (BEAKER) (test code = 410) 10.1 GM/DL 13.7-17.5 L HEMATOCRIT (BEAKER) (test code = 411) 31.6 % 40.1-51.0 L MEAN CORPUSCULAR VOLUME (BEAKER) (test code = 753) 88.5 fL 79. 0-92.2 MEAN CORPUSCULAR HEMOGLOBIN (BEAKER) (test code = 751) 28.3 pg 25.7-32.2 MEAN CORPUSCULAR HEMOGLOBIN CONC (BEAKER) (test code = 752) 32.0 GM/DL 32.3-36.5 L RED CELL DISTRIBUTION WIDTH (BEAKER) (test code = 412) 15.4 % 11.6-14.4 H PLATELET COUNT (BEAKER) (test code = 756) 183 K/CU MM 150-450 MEAN PLATELET VOLUME (BEAKER) (test code = 754) 12.5 fL 9.4-12 .4 H NUCLEATED RED BLOOD CELLS (BEAKER) (test code = 413) 0 /100 WBC 0 -0 NEUTROPHILS RELATIVE PERCENT (BEAKER) (test code = 429) 91 % LYMPHOCYTES RELATIVE PERCENT (BEAKER) (test code = 430) 2 % MONOCYTES RELATIVE PERCENT (BEAKER) (test code = 431) 6 % EOSINOPHILS RELATIVE PERCENT (BEAKER) (test code = 432) 0 % BASOPHILS RELATIVE PERCENT (BEAKER) (test code = 437) 0 % NEUTROPHILS ABSOLUTE COUNT (BEAKER) (test code = 670) 13.51 K/ L 1.78-5.38 H LYMPHOCYTES ABSOLUTE COUNT (BEAKER) (test code = 414) 0.36 K/ L 1.32-3.57 L MONOCYTES ABSOLUTE COUNT (BEAKER) (test code = 415) 0.89 K/ L 0. 30-0.82 H EOSINOPHILS ABSOLUTE COUNT (BEAKER) (test code = 416) 0.00 K/ L 0.04-0.54 L BASOPHILS ABSOLUTE COUNT (BEAKER) (test code = 417) 0.02 K/ L 0. 01-0.08 IMMATURE GRANULOCYTES-RELATIVE PERCENT (BEAKER) (test code = 2801) 1 % 0-1 RAD, CHEST, 1 VIEW, NON [id number] 04:58:00Reason for exam:->sob, fever. new admitFINAL REPORT RAD, CHEST, 1 VIEW, NON DEPT INDICATION: sob, fever. new admit COMPARISON: Prior day's exam FINDINGS: Portable frontal view of the chest. IMPRESSION: Support Lines: Interval extubation. Otherwise unchanged support apparatus. Lungs and pleura: Increased right perihilar and right basilar heterogeneous airspace opacity. Persistent coarse interstitial lung markings in the left lung. Small right pleural effusion. Unchanged retrocardiac airspace opacities. No pneumothorax.Heart and mediastinum: Stable contours. Additional findings: Extensive subcutaneous emphysema over the left neck and chest wall, unchanged.. Signed: Shala Al MDReport Verified Date/Time: 08/23/2019 04:58:34 PHORUS 2019-08-23 04:40:00* Test Item Value Reference Range Interpretation Comments PHOSPHORUS (BEAKER) (test code = 604) 2.5 mg/dL 2.3-4.7 Sour Bleaching Pleater ID - JERRI [id number] 04:40:00* Test Item Value Reference Range Interpretation Comments MAGNESIUM (BEAKER) (test code = 627) 2.3 mg/dL 1.6-2.6 Sour Bleaching Pleater ID - JERRI WBASIC METABOLIC [id number] 04:40:00* Test Item Value Reference Range Interpretation Comments SODIUM (BEAKER) (test code = 381) 137 meq/L 136-145 POTASSIUM (BEAKER) (test code = 379) 3.7 meq/L 3.5-5.1 CHLORIDE (BEAKER) (test code = 382) 105 meq/L 98-107 CO2 (BEAKER) (test code = 355) 20 meq/L 22-29 L BLOOD UREA NITROGEN (BEAKER) (test code = 354) 19 mg/dL 7-21 CREATININE (BEAKER) (test code = 358) 1.17 mg/dL 0.57-1.25 GLUCOSE RANDOM (BEAKER) (test code = 652) 147 mg/dL 70-105 H CALCIUM (BEAKER) (test code = 697) 9.0 mg/dL 8.4-10.2 EGFR (BEAKER) (test code = 1092) 60 mL/min/1.73 sq m ESTIMATED GFR IS NOT ACCURATE CREATININE CLEARANCE IN PREDICTING GLOMERULAR FILTRATION RATE. ESTIMATED GFR IS NOT APPLICABLE FOR DIALYSIS PATIENTS. Sour Bleaching Pleater ID - JERRI WLACTIC ACID, [id number] 04:32:00* Test Item Value Reference Range Interpretation Comments LACTATE BLOOD ARTERIAL (2) (BEAKER) (test code = 2874) 1.0 mmol/L 0.5-2.2 Sour Bleaching Pleater ID - JERRI WBLOOD GAS, [id number] 04:14:00* Test Item Value Reference Range Interpretation Comments PH ARTERIAL (BEAKER) (test code = 383) 7.45 7.35-7.45 PCO2 ARTERIAL (BEAKER) (test code = 384) 35 mmHg 35-45 PO2 ARTERIAL (BEAKER) (test code = 385) 121 mmHg 80-90 H O2 SATURATION ARTERIAL (BEAKER) (test code = 386) 98.5 % 96.0 -97.0 H HCO3 ARTERIAL (BEAKER) (test code = 388) 23 mmol/L 21-29 BASE EXCESS ARTERIAL (BEAKER) (test code = 387) -0.4 mmol/L -2.0-3 .0 PATIENT TEMPERATURE (BEAKER) (test code = 1818) 37.1 C FIO2 (BEAKER) (test code = 1819) 28.0 % CALCIUM, [id number] 04:09:00* Test Item Value Reference Range Interpretation Comments CALCIUM IONIZED (BEAKER) (test code = 698) 1.13 mmol/L 1.12-1.27 PH, BLOOD (BEAKER) (test code = 1810) 7.45 LACTIC ACID, [id number] 20:35:00* Test Item Value Reference Range Interpretation Comments LACTATE BLOOD ARTERIAL (2) (BEAKER) (test code = 2874) 1.0 mmol/L 0.5-2.2 Sour Bleaching Pleater ID - DBCALCIUM, [id number] 20:16:00* Test Item Value Reference Range Interpretation Comments CALCIUM IONIZED (BEAKER) (test code = 698) 1.09 mmol/L 1.12-1.27 L PH, BLOOD (BEAKER) (test code = 1810) 7.43 BLOOD GAS, [id number] 20:16:00* Test Item Value Reference Range Interpretation Comments PH ARTERIAL (BEAKER) (test code = 383) 7.43 7.35-7.45 PCO2 ARTERIAL (BEAKER) (test code = 384) 27 mmHg 35-45 L PO2 ARTERIAL (BEAKER) (test code = 385) 132 mmHg 80-90 H O2 SATURATION ARTERIAL (BEAKER) (test code = 386) 98.7 % 96.0 -97.0 H HCO3 ARTERIAL (BEAKER) (test code = 388) 18 mmol/L 21-29 L BASE EXCESS ARTERIAL (BEAKER) (test code = 387) -5.5 mmol/L -2.0-3 .0 L PATIENT TEMPERATURE (BEAKER) (test code = 1818) 37.3 C FIO2 (BEAKER) (test code = 1819) 40.0 % SODIUM NA-STAT [id number] 20:16:00* Test Item Value Reference Range Interpretation Comments SODIUM (BEAKER) (test code = 381) 131 meq/L 135-148 L GLUCOSE-STAT [id number] 20:16:00* Test Item Value Reference Range Interpretation Comments GLUCOSE RANDOM (BEAKER) (test code = 652) 124 mg/dL 70-110 H HGB/HCT (H&H) - STAT [id number] 20:16:00* Test Item Value Reference Range Interpretation Comments HEMOGLOBIN (BEAKER) (test code = 410) 11.3 g/dL 13.0-16.8 L HEMATOCRIT (BEAKER) (test code = 411) 33.0 % 40.0-50.0 L POC-Glucose [id number] 20:15:00* Test Item Value Reference Range Interpretation Comments POC-Glucose Meter (test code = 1538) 122 mg/dL 70-110 H : TESTED AT [address], [address]: Sour Bleaching Pleater/Pocket Creaser ID = [id number] for FLORIAN LUKE Lab Interpretation (test code = 32351-0) [facility] [id number] 20:15:00* Test Item Value Reference Range Interpretation Comments POC-GLUCOSE METER (BEAKER) (test code = 1538) 122 mg/dL 70-110 H : TESTED AT [facility] [address] [facility], [address]: Sour Bleaching Pleater/Pocket Creaser ID = [id number] for FLORIAN LUKE POTASSIUM-STAT [id number] 20:14:00* Test Item Value Reference Range Interpretation Comments POTASSIUM (BEAKER) (test code = 379) 3.8 meq/L 3.6-5.5 LACTIC ACID, [id number] 18:48:00* Test Item Value Reference Range Interpretation Comments LACTATE BLOOD ARTERIAL (2) (BEAKER) (test code = 2874) 1.0 mmol/L 0.5-2.2 Sour Bleaching Pleater ID - DBPOCT-GLUCOSE [id number] 18:31:00* Test Item Value Reference Range Interpretation Comments POC-GLUCOSE METER (BEAKER) (test code = 1538) 123 mg/dL 70-110 H : TESTED AT [facility] [address] [facility], [address]: Sour Bleaching Pleater/Pocket Creaser ID = [id number] for POLLY FARMER BLOOD GAS, [id number] 18:25:00* Test Item Value Reference Range Interpretation Comments PH ARTERIAL (BEAKER) (test code = 383) 7.45 7.35-7.45 PCO2 ARTERIAL (BEAKER) (test code = 384) 26 mmHg 35-45 L PO2 ARTERIAL (BEAKER) (test code = 385) 142 mmHg 80-90 H O2 SATURATION ARTERIAL (BEAKER) (test code = 386) 99.0 % 96.0 -97.0 H HCO3 ARTERIAL (BEAKER) (test code = 388) 18 mmol/L 21-29 L BASE EXCESS ARTERIAL (BEAKER) (test code = 387) -4.6 mmol/L -2.0-3 .0 L PATIENT TEMPERATURE (BEAKER) (test code = 1818) 37.2 C FIO2 (BEAKER) (test code = 1819) 40.0 % Legionella antigen, [id number] 17:23:00* Test Item Value Reference Range Interpretation Comments Legionella Urine Antigen (test code = 25085-1) Negative - see comme nt Negative for L. pneumophila serogroup 1 antigen, suggesting no recent or current infection with this serogroup. Legionellosis cannot be ruled out since other serogroups and species may cause disease. [facility] [id number] 17:23:00* Test Item Value Reference Range Interpretation Comments Strep pneumoniae Antigen (test code = 04806-5) Presump tive negative for pneumococcal pneumonia - see comment Presumptive negative for pneumococcal pneumonia - see comment, Presumptive negative for pneumococcal meningitis DUDLEY (test code = DUDLEY) Presumptive negative for pne umococcal pneumonia, suggesting no current or recent pneumococcal infection. Infection due to S. pneumoniae cannot be ruled out since the antigen present in the sample may be below the detection limit of the test. Lab Interpretation (test code = 64338-2) Normal [facility]LE[facility]ION[facility]LL[facility] ANTIGEN, [id number] 17:23:00* Test Item Value Reference Range Interpretation Comments L. PNEUMOPHILA SEROGP 1 UR AG (BEAKER) (test code = 11 56) Negative - see comment Negative for L. pneu mophila serogroup 1 antigen, suggesting no recent or current infection with this serogroup. Legionellosis cannot be ruled out since other serogroups and species may cause disease. STREP PNEUMONIAE [id number] 17:23:00* Test Item Value Reference Range Interpretation Comments STREP PNEUMONIAE ANTIGEN (BEAKER) (test code = 1615) P resumptive negative for pneumococcal pneumonia - see comment Presumptive negative for pneumococcal pneumonia - see commen Presumptive negative for pneumococcal pneumonia, suggesting no current or recent pneumococcal infection. Infection due to S. pneumoniae cannot be ruled out sinc e the antigen present in the sample may be below the detection limit of the test .CBC W/PLT COUNT & AUTO [id number] 15:27:00* Test Item Value Reference Range Interpretation Comments WHITE BLOOD CELL COUNT (BEAKER) (test code = 775) 17.9 K/ L 3.5- 10.5 H RED BLOOD CELL COUNT (BEAKER) (test code = 761) 3.78 M/ L 4.63-6 .08 L HEMOGLOBIN (BEAKER) (test code = 410) 10.6 GM/DL 13.7-17.5 L HEMATOCRIT (BEAKER) (test code = 411) 33.5 % 40.1-51.0 L MEAN CORPUSCULAR VOLUME (BEAKER) (test code = 753) 88.6 fL 79. 0-92.2 MEAN CORPUSCULAR HEMOGLOBIN (BEAKER) (test code = 751) 28.0 pg 25.7-32.2 MEAN CORPUSCULAR HEMOGLOBIN CONC (BEAKER) (test code = 752) 31.6 GM/DL 32.3-36.5 L RED CELL DISTRIBUTION WIDTH (BEAKER) (test code = 412) 15.6 % 11.6-14.4 H PLATELET COUNT (BEAKER) (test code = 756) 201 K/CU MM 150-450 MEAN PLATELET VOLUME (BEAKER) (test code = 754) 12.6 fL 9.4-12 .4 H NUCLEATED RED BLOOD CELLS (BEAKER) (test code = 413) 0 /100 WBC 0 -0 NEUTROPHILS RELATIVE PERCENT (BEAKER) (test code = 429) 92 % LYMPHOCYTES RELATIVE PERCENT (BEAKER) (test code = 430) 2 % MONOCYTES RELATIVE PERCENT (BEAKER) (test code = 431) 5 % EOSINOPHILS RELATIVE PERCENT (BEAKER) (test code = 432) 0 % BASOPHILS RELATIVE PERCENT (BEAKER) (test code = 437) 0 % NEUTROPHILS ABSOLUTE COUNT (BEAKER) (test code = 670) 16.39 K/ L 1.78-5.38 H LYMPHOCYTES ABSOLUTE COUNT (BEAKER) (test code = 414) 0.40 K/ L 1.32-3.57 L MONOCYTES ABSOLUTE COUNT (BEAKER) (test code = 415) 0.91 K/ L 0. 30-0.82 H EOSINOPHILS ABSOLUTE COUNT (BEAKER) (test code = 416) 0.00 K/ L 0.04-0.54 L BASOPHILS ABSOLUTE COUNT (BEAKER) (test code = 417) 0.02 K/ L 0. 01-0.08 IMMATURE GRANULOCYTES-RELATIVE PERCENT (BEAKER) (test code = 2801) 1 % 0-1 LACTIC ACID, [id number] 14:08:00* Test Item Value Reference Range Interpretation Comments LACTATE BLOOD ARTERIAL (2) (BEAKER) (test code = 2874) 0.8 mmol/L 0.5-2.2 Sour Bleaching Pleater HUSSEIN HARRISON MPOCT-GLUCOSE [id number] 13:48:00* Test Item Value Reference Range Interpretation Comments POC-GLUCOSE METER (BEAKER) (test code = 1538) 98 mg/dL 70-110 : TESTED AT [facility] [address] [facility], [address]: Sour Bleaching Pleater/Pocket Creaser ID = [id number] for POLLY FARMER [id number] 11:01:00* Test Item Value Reference Range Interpretation Comments Cortisol, Total (test code = 2755) 17.3 ug/dL 3.7-19.4 DUDLEY (test code = DUDLEY) Sour Bleaching Pleater HUSSEIN HARRISON M Lab Interpretation (test code = 95854-4) Normal [facility]2020-[facility] 11:01:00* Test Item Value Reference Range Interpretation Comments CORTISOL, TOTAL (BEAKER) (test code = 2755) 17.3 ug/dL 3.7-19.4 Sour Bleaching Pleater ID - HUNTER MCYTOLOGY [id number] 11:00:00* Test Item Value Reference Range Interpretation Comments Cytology (test code = 2629) See Separate Report [facility] [id number] 11:00:00* Test Item Value Reference Range Interpretation Comments CYTOLOGY RESULT POINTER (BEAKER) (test code = 2629) See Separate Re port CYTOLOGY [id number] 11:00:00* Test Item Value Reference Range Interpretation Comments CYTOLOGY RESULT POINTER (BEAKER) (test code = 2629) See Separate Re port RAD, CHEST, 1 VIEW, NON [id number] 10:32:00Reason for exam:->Significant subqutaneous emphysema ? progression, ? PneumothoraxShould this be performed at the bedside?->YesFINAL REPORT RAD, CHEST, 1 VIEW, NON DEPT INDICATION: Significant subqutaneous emphysema ? progression, ? Pneumothorax COMPARISON: Prior day's exam FINDINGS: Portable frontal view of the chest. IMPRESSION: Support Lines: ET tube is 3 cm superior to tyrone. Right- sided central catheter tip overlies the right atrium. Left-sided subcutaneous emphysema is unchanged.Lungs and pleura: Unchanged airspace and pleural opacities. No pneumothorax.Heart and mediastinum: Stable contours. Stable surgical changes.Additional findings: None. Signed: Gaviota Reardon MDReport Verified Date/Time: 08/22/2019 10:32:26 Reading Location: [facility] Radiology Reading Room Respiratory Panel [id number] 08:47:00* Test Item Value Reference Range Interpretation Comments Human Metapneumovirus (test code = 97231-3) Not detected Not detected, Equivocal Rhinovirus (test code = 65102-3) Not detected Not detected, Equivoc al INFLUENZA A (NO SUBTYPE) (test code = 46774-2) Not detected Not detected, Equivocal Influenza A subtype H1 (test code = 44989-5) Influenza A Subtype H3 (test code = 62730-9) Influenza A Subtype H1-2009 (test code = 83802-6) Influenza B (test code = 94512-8) Not detected Not detected, Equivo lisa Respiratory Syncytial Virus (test code = 47321-5) Not detect ed Not detected, Equivocal Parainfluenza Virus 1 (test code = 31781-6) Not detected Not detected, Equivocal Parainfluenza Virus 2 (test code = 03178-6) Not detected Not detected, Equivocal Parainfluenza virus 3 (test code = 31490-5) Not detected Not detected, Equivocal Parainfluenza Virus 4 (test code = 30547-6) Not detected Not detected, Equivocal Adenovirus (test code = 83164-4) Not detected Not detected, Equivoc al Coronavirus 229E (test code = 95026-0) Not detected Not detected, E quivocal Coronavirus HKU1 (test code = 24068-3) Not detected Not detected, E quivocal Coronavirus NL63 (test code = 34269-8) Not detected Not detected, E quivocal Coronavirus OC43 (test code = 40495-5) Not detected Not detected, E quivocal Bordetella Pertussis (test code = 57222-4) Not detected Not d etected, Equivocal Chlamydophila Pneumoniae (test code = 13595-5) Not detected Not detected, Equivocal Mycoplasma Pneumoniae (test code = 31995-3) Not detected Not detected, Equivocal DUDLEY (test code = DUDLEY) Other viruses and bacteria n ot targeted by this PCR panel cannot be excluded; therefore clinical correlation and follow up of serology, culture results, and other molecular studies is required. The results are not intended to be used as the sole means for clinical diagnosis or patient management decisions. This sample was tested at the [facility] Molecular Diagnostics [facility] using the AlorumArray Respiratory Panel. It is FDA cleared and has been verified and approved by the [facility] for clinical use on nasopharyngeal swab specimens. The performance of the FilmArra y RP has not been established in individuals who received influenza vaccine. Recent administration of a nasal influenza vaccine may cause false positive results for Influenza A and/orInfluenza B. [facility] [id number] 08:47:00* Test Item Value Reference Range Interpretation Comments HUMAN METAPNEUMOVIRUS (BEAKER) (test code = 2683) Not detect ed Not detected, Equivocal RHINOVIRUS (BEAKER) (test code = 2684) Not detected Not detected, E quivocal INFLUENZA A (BEAKER) (test code = 2685) Not detected Not detected, Equivocal INFLUENZA A (NO SUBTYPE) (test code = 3606) INFLUENZA A SUBTYPE H1 (BEAKER) (test code = 2686) INFLUENZA A SUBTYPE H3 (BEAKER) (test code = 2687) INFLUENZA A SUBTYPE H1-2009 (BEAKER) (test code = 3198) INFLUENZA B (BEAKER) (test code = 2688) Not detected Not detected, Equivocal RESPIRATORY SYNCYTIAL VIRUS (BEAKER) (test code = 3199) Not detected Not detected, Equivocal PARAINFLUENZA VIRUS 1 (BEAKER) (test code = 2691) Not detect ed Not detected, Equivocal PARAINFLUENZA VIRUS 2 (BEAKER) (test code = 2692) Not detect ed Not detected, Equivocal PARAINFLUENZA VIRUS 3 (BEAKER) (test code = 2693) Not detect ed Not detected, Equivocal PARAINFLUENZA VIRUS 4 (BEAKER) (test code = 3200) Not detect ed Not detected, Equivocal ADENOVIRUS (BEAKER) (test code = 2694) Not detected Not detected, E quivocal CORONAVIRUS 229E (BEAKER) (test code = 3201) Not detected Not detected, Equivocal CORONAVIRUS HKU1 (BEAKER) (test code = 3202) Not detected Not detected, Equivocal CORONAVIRUS NL63 (BEAKER) (test code = 3203) Not detected Not detected, Equivocal CORONAVIRUS OC43 (BEAKER) (test code = 3204) Not detected Not detected, Equivocal BORDETELLA PERTUSSIS (BEAKER) (test code = 3205) Not detecte d Not detected, Equivocal CHLAMYDOPHILA PNEUMONIAE (BEAKER) (test code = 3206) Not det ected Not detected, Equivocal MYCOPLASMA PNEUMONIAE (BEAKER) (test code = 3207) Not detect ed Not detected, Equivocal Other viruses and bacteria not targeted by this PCR panel cannot be excluded; th erefore clinical correlation and follow up of serology, culture results, and ot er molecular studies is required. The results are not intended to be used as the sole means for clinical diagnosis or patient management decisions. This sample was tested at the [facility] using the [employer] FilmA rray Respiratory Panel. It is FDA cleared and has been verified and approved by the [facility] for clinical use on nasopharyngeal sw ab specimens.The performance of the FilmArray RP has not been established in ind ividuals who received influenza vaccine. Recent administration of a nasal influ bruce vaccine may cause false positive results for Influenza A and/orInfluenza B. RAD, CHEST, 1 VIEW, NON [id number] 05:33:00Reason for exam:->sob, fever. new admitFINAL REPORT RAD, CHEST, 1 VIEW, NON DEPT INDICATION: sob, fever. new admit COMPARISON: Exam from one hour prior FINDINGS: Portable frontal view of the chest. IMPRESSION: Support Lines: A right IJ central venous catheter is in place with the tip overlying the right atrium. Lungs and pleura: Unchanged airspace and pleural opacities. No pneumothorax.Heart and mediastinum: Stable contours. Additional findings: Unchanged extensive emphysema in the left chest wall and soft tissues. Signed: Gretta Lemus MDReport Verified Date/Time: 08/22/2019 05:33:36 C METABOLIC [id number] 04:24:00* Test Item Value Reference Range Interpretation Comments SODIUM (BEAKER) (test code = 381) 134 meq/L 136-145 L POTASSIUM (BEAKER) (test code = 379) 4.0 meq/L 3.5-5.1 CHLORIDE (BEAKER) (test code = 382) 103 meq/L 98-107 CO2 (BEAKER) (test code = 355) 21 meq/L 22-29 L BLOOD UREA NITROGEN (BEAKER) (test code = 354) 14 mg/dL 7-21 CREATININE (BEAKER) (test code = 358) 0.99 mg/dL 0.57-1.25 GLUCOSE RANDOM (BEAKER) (test code = 652) 90 mg/dL 70-105 CALCIUM (BEAKER) (test code = 697) 7.9 mg/dL 8.4-10.2 L EGFR (BEAKER) (test code = 1092) 72 mL/min/1.73 sq m ESTIMATED GFR IS NOT ACCURATE CREATININE CLEARANCE IN PREDICTING GLOMERULAR FILTRATION RATE. ESTIMATED GFR IS NOT APPLICABLE FOR DIALYSIS PATIENTS. Sour Bleaching Pleater ID - HUNTER [id number] 04:20:00* Test Item Value Reference Range Interpretation Comments PTT (test code = 81344-8) 42.6 22.5- 36.0 seconds H Lab Interpretation (test code = 03929-2) [facility] 04:20[facility]* Test Item Value Reference Range Interpretation Comments PARTIAL THROMBOPLASTIN TIME (BEAKER) (test code = 760) 42.6 seconds 22.5-36.0 H [id number] 04:19:00* Test Item Value Reference Range Interpretation Comments Fibrinogen (test code = 3255-7) 644 mg/dl 225-434 H Lab Interpretation (test code = 50607-6) [facility][id number] 04:19:00* Test Item Value Reference Range Interpretation Comments Protime (test code = 5902-2) 19.3 11.9- 14.2 seconds H INR (test code = 6301-6) 1.7 <=5.9 DUDLEY (test code = DUDLEY) Effective 11/08/2018: PT Refe rence Range ChangeNew: 11.9- 14.2 Previous: 11.7-14.7 RECOMMENDED COUMADIN/WARFARIN INR THERAPY RANGESSTANDARD DOSE: 2.0-3.0 Includes: PROPHYLAXIS for venous thrombosis, sys temic embolization; TREATMENT for venous thrombosis and/or pulmonary embolus.HIGH RISK: Target INR is 2.5-3.5 for patients wiht mechanical heart valves. Lab Interpretation (test code = 41804-7) [facility]/[id number] 04:19:00* Test Item Value Reference Range Interpretation Comments PROTIME (BEAKER) (test code = 759) 19.3 seconds 11.9-14.2 H INR (BEAKER) (test code = 370) 1.7 <=5.9 Effective 11/08/2018: PT Reference Range ChangeNew: 11.9-14.2 Previous: 11.7-14. 7RECOMMENDED COUMADIN/WARFARIN INR THERAPY RANGESSTANDARD DOSE: 2.0-3.0 Include s: PROPHYLAXIS for venous thrombosis, systemic embolization; TREATMENT for venou s thrombosis and/or pulmonary embolus.HIGH RISK: Target INR is 2.5-3.5 for patie nts wiht mechanical heart valves.[id number] 04:19:00* Test Item Value Reference Range Interpretation Comments PHOSPHORUS (BEAKER) (test code = 604) 2.8 mg/dL 2.3-4.7 Sour Bleaching Pleater ID - HUNTER [id number] 04:19:00* Test Item Value Reference Range Interpretation Comments MAGNESIUM (BEAKER) (test code = 627) 2.2 mg/dL 1.6-2.6 Sour Bleaching Pleater ID - HUNTER [id number] 04:19:00* Test Item Value Reference Range Interpretation Comments FIBRINOGEN LEVEL (BEAKER) (test code = 658) 644 mg/dl 225-434 H CBC W/PLT COUNT & AUTO [id number] 04:09:00* Test Item Value Reference Range Interpretation Comments WHITE BLOOD CELL COUNT (BEAKER) (test code = 775) 15.1 K/ L 3.5- 10.5 H RED BLOOD CELL COUNT (BEAKER) (test code = 761) 3.47 M/ L 4.63-6 .08 L HEMOGLOBIN (BEAKER) (test code = 410) 9.9 GM/DL 13.7-17.5 L HEMATOCRIT (BEAKER) (test code = 411) 30.8 % 40.1-51.0 L MEAN CORPUSCULAR VOLUME (BEAKER) (test code = 753) 88.8 fL 79. 0-92.2 MEAN CORPUSCULAR HEMOGLOBIN (BEAKER) (test code = 751) 28.5 pg 25.7-32.2 MEAN CORPUSCULAR HEMOGLOBIN CONC (BEAKER) (test code = 752) 32.1 GM/DL 32.3-36.5 L RED CELL DISTRIBUTION WIDTH (BEAKER) (test code = 412) 15.5 % 11.6-14.4 H PLATELET COUNT (BEAKER) (test code = 756) 152 K/CU MM 150-450 MEAN PLATELET VOLUME (BEAKER) (test code = 754) 12.6 fL 9.4-12 .4 H NUCLEATED RED BLOOD CELLS (BEAKER) (test code = 413) 0 /100 WBC 0 -0 NEUTROPHILS RELATIVE PERCENT (BEAKER) (test code = 429) 88 % LYMPHOCYTES RELATIVE PERCENT (BEAKER) (test code = 430) 4 % MONOCYTES RELATIVE PERCENT (BEAKER) (test code = 431) 7 % EOSINOPHILS RELATIVE PERCENT (BEAKER) (test code = 432) 0 % BASOPHILS RELATIVE PERCENT (BEAKER) (test code = 437) 0 % NEUTROPHILS ABSOLUTE COUNT (BEAKER) (test code = 670) 13.28 K/ L 1.78-5.38 H LYMPHOCYTES ABSOLUTE COUNT (BEAKER) (test code = 414) 0.61 K/ L 1.32-3.57 L MONOCYTES ABSOLUTE COUNT (BEAKER) (test code = 415) 1.04 K/ L 0. 30-0.82 H EOSINOPHILS ABSOLUTE COUNT (BEAKER) (test code = 416) 0.01 K/ L 0.04-0.54 L BASOPHILS ABSOLUTE COUNT (BEAKER) (test code = 417) 0.01 K/ L 0. 01-0.08 IMMATURE GRANULOCYTES-RELATIVE PERCENT (BEAKER) (test code = 2801) 1 % 0-1 BLOOD GAS, [id number] 04:01:00* Test Item Value Reference Range Interpretation Comments PH ARTERIAL (BEAKER) (test code = 383) 7.42 7.35-7.45 PCO2 ARTERIAL (BEAKER) (test code = 384) 33 mmHg 35-45 L PO2 ARTERIAL (BEAKER) (test code = 385) 177 mmHg 80-90 H O2 SATURATION ARTERIAL (BEAKER) (test code = 386) 99.2 % 96.0 -97.0 H HCO3 ARTERIAL (BEAKER) (test code = 388) 21 mmol/L 21-29 BASE EXCESS ARTERIAL (BEAKER) (test code = 387) -2.8 mmol/L -2.0-3 .0 L PATIENT TEMPERATURE (BEAKER) (test code = 1818) 37.3 C FIO2 (BEAKER) (test code = 1819) 50.0 % CALCIUM, [id number] 04:01:00* Test Item Value Reference Range Interpretation Comments CALCIUM IONIZED (BEAKER) (test code = 698) 1.09 mmol/L 1.12-1.27 L PH, BLOOD (BEAKER) (test code = 1810) 7.43 BASIC METABOLIC [id number] 01:24:00* Test Item Value Reference Range Interpretation Comments SODIUM (BEAKER) (test code = 381) 135 meq/L 136-145 L POTASSIUM (BEAKER) (test code = 379) 3.7 meq/L 3.5-5.1 CHLORIDE (BEAKER) (test code = 382) 102 meq/L 98-107 CO2 (BEAKER) (test code = 355) 18 meq/L 22-29 L BLOOD UREA NITROGEN (BEAKER) (test code = 354) 15 mg/dL 7-21 CREATININE (BEAKER) (test code = 358) 1.06 mg/dL 0.57-1.25 GLUCOSE RANDOM (BEAKER) (test code = 652) 85 mg/dL 70-105 CALCIUM (BEAKER) (test code = 697) 7.5 mg/dL 8.4-10.2 L EGFR (BEAKER) (test code = 1092) 67 mL/min/1.73 sq m ESTIMATED GFR IS NOT ACCURATE CREATININE CLEARANCE IN PREDICTING GLOMERULAR FILTRATION RATE. ESTIMATED GFR IS NOT APPLICABLE FOR DIALYSIS PATIENTS. Sour Bleaching Pleater ID - DBLACTIC ACID, [id number] 00:54:00* Test Item Value Reference Range Interpretation Comments LACTATE BLOOD ARTERIAL (2) (BEAKER) (test code = 2874) 0.9 mmol/L 0.5-2.2 Specimen slightly hemolyzed Sour Bleaching Pleater ID - DBPT/[id number] 00:52:00* Test Item Value Reference Range Interpretation Comments Protime (test code = 5902-2) 18.8 11.9- 14.2 seconds H INR (test code = 6301-6) 1.6 <=5.9 PTT (test code = 84394-0) 39.3 22.5- 36.0 seconds H DUDLEY (test code = DUDLEY) Effective 11/08/2018: PT Refe rence Range ChangeNew: 11.9- 14.2 Previous: 11.7-14.7 RECOMMENDED COUMADIN/WARFARIN INR THERAPY RANGESSTANDARD DOSE: 2.0-3.0 Includes: PROPHYLAXIS for venous thrombosis, sys temic embolization; TREATMENT for venous thrombosis and/or pulmonary embolus.HIGH RISK: Target INR is 2.5-3.5 for patients wiht mechanical heart valves. Lab Interpretation (test code = 22610-3) [id number] 00:52:00* Test Item Value Reference Range Interpretation Comments PROTIME (BEAKER) (test code = 759) 18.8 seconds 11.9-14.2 H INR (BEAKER) (test code = 370) 1.6 <=5.9 PARTIAL THROMBOPLASTIN TIME (BEAKER) (test code = 760) 39.3 seconds 22.5-36.0 H Effective 11/08/2018: PT Reference Range ChangeNew: 11.9-14.2 Previous: 11.7-14. 7RECOMMENDED COUMADIN/WARFARIN INR THERAPY RANGESSTANDARD DOSE: 2.0-3.0 Include s: PROPHYLAXIS for venous thrombosis, systemic embolization; TREATMENT for venou s thrombosis and/or pulmonary embolus.HIGH RISK: Target INR is 2.5-3.5 for patie nts wiht mechanical heart valves.CALCIUM, [id number] 00:44:00* Test Item Value Reference Range Interpretation Comments CALCIUM IONIZED (BEAKER) (test code = 698) 1.02 mmol/L 1.12-1.27 L PH, BLOOD (BEAKER) (test code = 1810) 7.49 BLOOD GAS, [id number] 00:44:00* Test Item Value Reference Range Interpretation Comments PH ARTERIAL (BEAKER) (test code = 383) 7.48 7.35-7.45 H PCO2 ARTERIAL (BEAKER) (test code = 384) 29 mmHg 35-45 L PO2 ARTERIAL (BEAKER) (test code = 385) 181 mmHg 80-90 H O2 SATURATION ARTERIAL (BEAKER) (test code = 386) 99.4 % 96.0 -97.0 H HCO3 ARTERIAL (BEAKER) (test code = 388) 21 mmol/L 21-29 BASE EXCESS ARTERIAL (BEAKER) (test code = 387) -1.8 mmol/L -2.0-3 .0 PATIENT TEMPERATURE (BEAKER) (test code = 1818) 37.3 C FIO2 (BEAKER) (test code = 1819) 40.0 % CBC W/PLT COUNT & AUTO [id number] 00:44:00* Test Item Value Reference Range Interpretation Comments WHITE BLOOD CELL COUNT (BEAKER) (test code = 775) 15.8 K/ L 3.5- 10.5 H RED BLOOD CELL COUNT (BEAKER) (test code = 761) 3.51 M/ L 4.63-6 .08 L HEMOGLOBIN (BEAKER) (test code = 410) 10.0 GM/DL 13.7-17.5 L HEMATOCRIT (BEAKER) (test code = 411) 31.2 % 40.1-51.0 L MEAN CORPUSCULAR VOLUME (BEAKER) (test code = 753) 88.9 fL 79. 0-92.2 MEAN CORPUSCULAR HEMOGLOBIN (BEAKER) (test code = 751) 28.5 pg 25.7-32.2 MEAN CORPUSCULAR HEMOGLOBIN CONC (BEAKER) (test code = 752) 32.1 GM/DL 32.3-36.5 L RED CELL DISTRIBUTION WIDTH (BEAKER) (test code = 412) 15.4 % 11.6-14.4 H PLATELET COUNT (BEAKER) (test code = 756) 168 K/CU MM 150-450 MEAN PLATELET VOLUME (BEAKER) (test code = 754) 12.4 fL 9.4-12 .4 NUCLEATED RED BLOOD CELLS (BEAKER) (test code = 413) 0 /100 WBC 0 -0 NEUTROPHILS RELATIVE PERCENT (BEAKER) (test code = 429) 87 % LYMPHOCYTES RELATIVE PERCENT (BEAKER) (test code = 430) 5 % MONOCYTES RELATIVE PERCENT (BEAKER) (test code = 431) 8 % EOSINOPHILS RELATIVE PERCENT (BEAKER) (test code = 432) 0 % BASOPHILS RELATIVE PERCENT (BEAKER) (test code = 437) 0 % NEUTROPHILS ABSOLUTE COUNT (BEAKER) (test code = 670) 13.71 K/ L 1.78-5.38 H LYMPHOCYTES ABSOLUTE COUNT (BEAKER) (test code = 414) 0.77 K/ L 1.32-3.57 L MONOCYTES ABSOLUTE COUNT (BEAKER) (test code = 415) 1.18 K/ L 0. 30-0.82 H EOSINOPHILS ABSOLUTE COUNT (BEAKER) (test code = 416) 0.00 K/ L 0.04-0.54 L BASOPHILS ABSOLUTE COUNT (BEAKER) (test code = 417) 0.02 K/ L 0. 01-0.08 IMMATURE GRANULOCYTES-RELATIVE PERCENT (BEAKER) (test code = 2801) 1 % 0-1 SODIUM NA-STAT [id number] 00:44:00* Test Item Value Reference Range Interpretation Comments SODIUM (BEAKER) (test code = 381) 132 meq/L 135-148 L HGB/HCT (H&H) - STAT [id number] 00:44:00* Test Item Value Reference Range Interpretation Comments HEMOGLOBIN (BEAKER) (test code = 410) 10.8 g/dL 13.0-16.8 L HEMATOCRIT (BEAKER) (test code = 411) 32.0 % 40.0-50.0 L GLUCOSE-STAT [id number] 00:39:00* Test Item Value Reference Range Interpretation Comments GLUCOSE RANDOM (BEAKER) (test code = 652) 87 mg/dL 70-110 POTASSIUM-STAT [id number] 00:39:00* Test Item Value Reference Range Interpretation Comments POTASSIUM (BEAKER) (test code = 379) 3.5 meq/L 3.6-5.5 L Troponin [id number] 00:27:00* Test Item Value Reference Range Interpretation Comments Troponin I (test code = 13776-2) 0.06 ng/mL 0-0.03 H DUDLEY (test code = DUDLEY) Troponin I (TnI) levels must be interpreted in the context of the presenting symptoms and the clinical findings. Elevated TnI levels indicate myocardial damage, but are not specific for ischemic heart disease. Elevated TnI levels are seen in patients with other cardiac conditions (including myocarditis and congestive heart failure), and slight TnI elevations occur in patients with other conditions, including sepsis, renal failure, acidosis, acute neurological disease, and persistent tachyarrhythmia.Sour Bleaching Pleater ID - DB Lab Interpretation (test code = 65155-2) [facility]normal [facility] [id number] 00:27:00* Test Item Value Reference Range Interpretation Comments TROPONIN I (BEAKER) (test code = 397) 0.06 ng/mL 0.00-0.03 H Troponin I (TnI) levels must be interpreted in the context of the presenting sym ptoms and the clinical findings. Elevated TnI levels indicate myocardial damage, but are not specific for ischemic heart disease. Elevated TnI levels are seen i n patients with other cardiac conditions (including myocarditis and congestive h eart failure), and slight TnI elevations occur in patients with other conditions , including sepsis, renal failure, acidosis, acute neurological disease, and per sistent tachyarrhythmia.Sour Bleaching Pleater ID - DBLactate dehydrogenase (LDH)2019-08-22 00:19:00* Test Item Value Reference Range Interpretation Comments LDH (test code = 2532-0) 265 U/L 125-220 H DUDLEY (test code = DUDLEY) Sour Bleaching Pleater ID - DB Lab Interpretation (test code = 46584-3) [facility]normal [facility]CT[facility] DEHYDROGENASE (LDH)2019-08-22 00:19:00* Test Item Value Reference Range Interpretation Comments LACTATE DEHYDROGENASE (BEAKER) (test code = 635) 265 U/L 125-2 20 H Sour Bleaching Pleater ID - DBRAD, CHEST, 1 VIEW, NON [id number] 23:45:00Reason for exam:- >hypoxia, crepitus at left CT siteFINAL REPORT RAD, CHEST, 1 VIEW, NON DEPT INDICATION: hypoxia, crepitus at left CT site COMPARISON: Prior day's exam FINDINGS: Portable frontal view of the chest. IMPRESSION: Support Lines: Stable including the endotracheal tube and left chest tube. There is significant short interval increased subcutaneous emphysema within the soft tissues of the left chest and left axilla of indeterminate etiology but may be iatrogenic related to the left thoracostomy tube. Please correlate clinically.Lungs and pleura: Unchanged bilateral airspace opacities. No discernible pneumothorax.Heart and mediastinum: Stable contours. Additional findings: None. Signed: Gretta Lemus MDReport Verified Date/Time: 08/21/2019 23:45:18 Electronically signed by: GRETTA LEMUS MD on 0 08/21/2019 11:45 PM BLOOD GAS, [id number] 22:32:00* Test Item Value Reference Range Interpretation Comments PH ARTERIAL (BEAKER) (test code = 383) 7.42 7.35-7.45 PCO2 ARTERIAL (BEAKER) (test code = 384) 36 mmHg 35-45 PO2 ARTERIAL (BEAKER) (test code = 385) 293 mmHg 80-90 H O2 SATURATION ARTERIAL (BEAKER) (test code = 386) 99.7 % 96.0 -97.0 H HCO3 ARTERIAL (BEAKER) (test code = 388) 22 mmol/L 21-29 BASE EXCESS ARTERIAL (BEAKER) (test code = 387) -1.4 mmol/L -2.0-3 .0 PATIENT TEMPERATURE (BEAKER) (test code = 1818) 37.8 C FIO2 (BEAKER) (test code = 1819) 100.0 % RAD, CHEST, 1 VIEW, NON [id number] 22:30:00Reason for exam:->post cardiac surgeryFINAL REPORT RAD, CHEST, 1 VIEW, NON DEPT INDICATION: post cardiac surgery COMPARISON: None FINDINGS: Portable frontal view of the chest. IMPRESSION: Support Lines: The endotracheal tube is 5.8 cm cephalad to the tyrone. Chest tube present at the left chest base.Lungs and pleura: There are bilateral interstitial and patchy airspace opacities concerning for edema. Superimposed infection would need to be excluded clinically. No sizable pleural effusion. No pneumothorax.Heart and mediastinum: Moderately enlarged cardiac silhouette with mediastinal widening likely related to postsurgical change and partially magnified by technique. Additional findings: Small amount of subcutaneous air in the left chest wall. Signed: Gretta Lemus [facility] Verified Date/Time: 08/21/2019 22:30:27 2019-08-21 21:23:00* Test Item Value Reference Range Interpretation Comments PARTIAL THROMBOPLASTIN TIME (BEAKER) (test code = 760) 43.9 seconds 22.5-36.0 H PROTHROMBIN TIME/[id number] 21:22:00* Test Item Value Reference Range Interpretation Comments PROTIME (BEAKER) (test code = 759) 19.0 seconds 11.9-14.2 H INR (BEAKER) (test code = 370) 1.7 <=5.9 Effective 11/08/2018: PT Reference Range ChangeNew: 11.9-14.2 Previous: 11.7-14. 7RECOMMENDED COUMADIN/WARFARIN INR THERAPY RANGESSTANDARD DOSE: 2.0-3.0 Include s: PROPHYLAXIS for venous thrombosis, systemic embolization; TREATMENT for venou s thrombosis and/or pulmonary embolus.HIGH RISK: Target INR is 2.5-3.5 for patie nts wiht mechanical heart valves.[id number] 21:22:00* Test Item Value Reference Range Interpretation Comments FIBRINOGEN LEVEL (BEAKER) (test code = 658) 739 mg/dl 225-434 H [id number] 21:16:00* Test Item Value Reference Range Interpretation Comments PHOSPHORUS (BEAKER) (test code = 604) 3.7 mg/dL 2.3-4.7 Sour Bleaching Pleater ID - [id number] 21:16:00* Test Item Value Reference Range Interpretation Comments MAGNESIUM (BEAKER) (test code = 627) 1.7 mg/dL 1.6-2.6 Sour Bleaching Pleater ID - BSBASIC METABOLIC [id number] 21:16:00* Test Item Value Reference Range Interpretation Comments SODIUM (BEAKER) (test code = 381) 135 meq/L 136-145 L POTASSIUM (BEAKER) (test code = 379) 3.8 meq/L 3.5-5.1 CHLORIDE (BEAKER) (test code = 382) 101 meq/L 98-107 CO2 (BEAKER) (test code = 355) 24 meq/L 22-29 BLOOD UREA NITROGEN (BEAKER) (test code = 354) 15 mg/dL 7-21 CREATININE (BEAKER) (test code = 358) 1.13 mg/dL 0.57-1.25 GLUCOSE RANDOM (BEAKER) (test code = 652) 86 mg/dL 70-105 CALCIUM (BEAKER) (test code = 697) 8.1 mg/dL 8.4-10.2 L EGFR (BEAKER) (test code = 1092) 62 mL/min/1.73 sq m ESTIMATED GFR IS NOT ACCURATE CREATININE CLEARANCE IN PREDICTING GLOMERULAR FILTRATION RATE. ESTIMATED GFR IS NOT APPLICABLE FOR DIALYSIS PATIENTS. Sour Bleaching Pleater ID - BSLACTIC ACID, [id number] 21:13:00* Test Item Value Reference Range Interpretation Comments LACTATE BLOOD ARTERIAL (2) (BEAKER) (test code = 2874) 1.0 mmol/L 0.5-2.2 Sour Bleaching Pleater ID - BSCBC W/PLT COUNT & AUTO [id number] 21:02:00* Test Item Value Reference Range Interpretation Comments WHITE BLOOD CELL COUNT (BEAKER) (test code = 775) 17.9 K/ L 3.5- 10.5 H RED BLOOD CELL COUNT (BEAKER) (test code = 761) 4.02 M/ L 4.63-6 .08 L HEMOGLOBIN (BEAKER) (test code = 410) 11.6 GM/DL 13.7-17.5 L HEMATOCRIT (BEAKER) (test code = 411) 35.8 % 40.1-51.0 L MEAN CORPUSCULAR VOLUME (BEAKER) (test code = 753) 89.1 fL 79. 0-92.2 MEAN CORPUSCULAR HEMOGLOBIN (BEAKER) (test code = 751) 28.9 pg 25.7-32.2 MEAN CORPUSCULAR HEMOGLOBIN CONC (BEAKER) (test code = 752) 32.4 GM/DL 32.3-36.5 RED CELL DISTRIBUTION WIDTH (BEAKER) (test code = 412) 15.2 % 11.6-14.4 H PLATELET COUNT (BEAKER) (test code = 756) 185 K/CU MM 150-450 MEAN PLATELET VOLUME (BEAKER) (test code = 754) 12.5 fL 9.4-12 .4 H NUCLEATED RED BLOOD CELLS (BEAKER) (test code = 413) 0 /100 WBC 0 -0 NEUTROPHILS RELATIVE PERCENT (BEAKER) (test code = 429) 87 % LYMPHOCYTES RELATIVE PERCENT (BEAKER) (test code = 430) 5 % MONOCYTES RELATIVE PERCENT (BEAKER) (test code = 431) 8 % EOSINOPHILS RELATIVE PERCENT (BEAKER) (test code = 432) 0 % BASOPHILS RELATIVE PERCENT (BEAKER) (test code = 437) 0 % NEUTROPHILS ABSOLUTE COUNT (BEAKER) (test code = 670) 15.57 K/ L 1.78-5.38 H LYMPHOCYTES ABSOLUTE COUNT (BEAKER) (test code = 414) 0.83 K/ L 1.32-3.57 L MONOCYTES ABSOLUTE COUNT (BEAKER) (test code = 415) 1.36 K/ L 0. 30-0.82 H EOSINOPHILS ABSOLUTE COUNT (BEAKER) (test code = 416) 0.01 K/ L 0.04-0.54 L BASOPHILS ABSOLUTE COUNT (BEAKER) (test code = 417) 0.02 K/ L 0. 01-0.08 IMMATURE GRANULOCYTES-RELATIVE PERCENT (BEAKER) (test code = 2801) 1 % 0-1 CALCIUM, [id number] 20:58:00* Test Item Value Reference Range Interpretation Comments CALCIUM IONIZED (BEAKER) (test code = 698) 1.09 mmol/L 1.12-1.27 L PH, BLOOD (BEAKER) (test code = 1810) 7.34 BLOOD GAS, [id number] 20:58:00* Test Item Value Reference Range Interpretation Comments PH ARTERIAL (BEAKER) (test code = 383) 7.34 7.35-7.45 L PCO2 ARTERIAL (BEAKER) (test code = 384) 46 mmHg 35-45 H PO2 ARTERIAL (BEAKER) (test code = 385) 102 mmHg 80-90 H O2 SATURATION ARTERIAL (BEAKER) (test code = 386) 96.9 % 96.0 -97.0 HCO3 ARTERIAL (BEAKER) (test code = 388) 24 mmol/L 21-29 BASE EXCESS ARTERIAL (BEAKER) (test code = 387) -1.4 mmol/L -2.0-3 .0 PATIENT TEMPERATURE (BEAKER) (test code = 1818) 38.3 C FIO2 (BEAKER) (test code = 1819) 60.0 % [id number] 20:17:34Katerine Leroy MD - 08/21/2019 8:17 PM CDT TEEDate: 08/21/2019 8:18 PM Sex: Male Location: OR Requesting Physician: Eduardo Shafer MD Examiner: Katerine Leroy MD Indication: pericardial effusion Intubated Sedated Insertion: easy Probe Type: multiplane Pre Intervention Summary: Post Intervention Summary: A very focussed echo was done in view of emergent situationLV: Normokinetic, EF about 55 %RV: Normo kineticMV: Mild MRAV: No or AITV: Mildf TRCircumferential pericardial effusion with few fibrin strands seen. ABout 1.5 - 2 cm effusion posteriorly seen and 1 cm anteriorly.Some RV collapse but very clear. Post drainage, Anterior effusion was drained but posteriorly still there. Slightly decreased effusion posteriorly but still there. Surgical team aware. [facility]Do[facility](CW/PW/Color)2019-08-21 18:15:10 Ejection FractionSLEH ECHO HEARTLAB MKCKESSON CPACSInterface, External Ris In - 08/21/2019 6:15 PM CDTTransthoracic Echocardiography Report (TTE) Demographics Patient Name GRETTA BYRD Date of Study 08/21/2019 Gender Male Visit Number [id number] Race Unknown Room Number 2C36 Num sarath Date of 1935 Referring Physician Age 83 year( s) Information Lead Interpreting Physician EDY Fairchild Procedure Type of Study TTE procedure:2DECHO W DOPPLER(CW/PW/COLOR) Indications:Pericardia l effusion.Height: 55 inches Weight: 45.36 kg (100 lbs) BSA: 1.31 m^2 BMI: 23.24 kg/m^2HR: 103 bpm BP: 100/100 mmHg Summary Moderately large circumferential per icardial effusion most prominent around the basal RV free wall (1.7 cm) and the basal lateral LV (2 cm). The study is somewhat technically difficult but suggest ion of intermittent partial RV collapse during normal breathing is worrisome for possible tamponade. Doppler signs are indeterminate. The estimated RA pressure by IVC dynamics 11-15mmHg . Unable to estimate peak systolic PA pressure; inadeq uate TR velocity signal. Technically fair exam. Clinical correlation is indicate d. Signature Electronically signed by Toro Alonso MD(Interpreting physician) on 03/2020 06:15 PM - Findings Rhythm/BP Rapid rhythm during the exam. Left Ventricl e Grossly normal LV size and Left Atrium LA is not well visu alized, unable to estimate LA size. Right Ventricle RV chamber size is normal . possible mild free wall co llapse with respiration suspected. Right Atrium RA size is probably n ormal based on available views. Aortic Valve M ild AoV cusp thickening. AoV cusp mobility is mildly decr eased . Mitral Valve Mild mitral annular calcification. No evidence of mitral regurgitation by limited views. Tricuspid Valve Unable to estimate peak systolic PA pressure; inadequate TR velocity signal. Aorta Aorti c root size (SInus of Valsalva diameter) is mildly dilate d . Pericardium Moderately large circumferential pericardial effusion most prominent around the basal RV free wall (1.7 cm) and the basal lateral LV (2 cm). Th e study is somewhat technically difficult but suggestion of intermittent partial RV collapse during normal breathi ng is worrisome for possible tamponade. Doppler signs are indeterminate. IVC/SVC/PA/PV/Pleural The estimated RA pressure by IVC dynamic s 11-15mmHg . Chambers/Structures Left Ventricle LVIDd: 4.98 cm LV Septum Diastolic: 1.11 cm LV PW Diastolic: 1.15 cm Aorta Ao Root S o f Shawna.: 4.05 cm [facility] Nat[facility] (BNP) 2019-08-21 18:09:00* Test Item Value Reference Range Interpretation Comments BNP (test code = 01816-8) 384 pg/mL 0-100 H DUDLEY (test code = DUDLEY) Sour Bleaching Pleater ID - BS Lab Interpretation (test code = 20171-8) Abnormal [facility] NATRIURET[facility]CTOR (BNP)2019-08-21 18:09:00 * Test Item Value Reference Range Interpretation Comments B-TYPE NATRIURETIC PEPTIDE (BEAKER) (test code = 700) 384 pg/mL 0-100 H Sour Bleaching Pleater ID - BSABORH, [id number] 18:00:00* Test Item Value Reference Range Interpretation Comments ABO Grouping (test code = 2588) B Rh Factor (test code = 2589) POS [facility], [id number] 17:59:00* Test Item Value Reference Range Interpretation Comments Vancomycin Rm (test code = 53617-4) 1.8 ug/mL DUDLEY (test code = DUDLEY) Reference Range: No NormalsOperator ID - BS [facility]ANCOMYCIN LEVEL, [id number] 17:59:00* Test Item Value Reference Range Interpretation Comments VANCOMYCIN RANDOM (BEAKER) (test code = 523) 1.8 ug/mL Reference Range: No NormalsOperator ID - [id number] 17:38:00* Test Item Value Reference Range Interpretation Comments PARTIAL THROMBOPLASTIN TIME (BEAKER) (test code = 760) 43.8 seconds 22.5-36.0 H PROTHROMBIN TIME/[id number] 17:37:00* Test Item Value Reference Range Interpretation Comments PROTIME (BEAKER) (test code = 759) 18.5 seconds 11.9-14.2 H INR (BEAKER) (test code = 370) 1.6 <=5.9 Effective 11/08/2018: PT Reference Range ChangeNew: 11.9-14.2 Previous: 11.7-14. 7RECOMMENDED COUMADIN/WARFARIN INR THERAPY RANGESSTANDARD DOSE: 2.0-3.0 Include s: PROPHYLAXIS for venous thrombosis, systemic embolization; TREATMENT for venou s thrombosis and/or pulmonary embolus.HIGH RISK: Target INR is 2.5-3.5 for patie nts wiht mechanical heart valves.[id number] 17:37:00* Test Item Value Reference Range Interpretation Comments FIBRINOGEN LEVEL (BEAKER) (test code = 658) 746 mg/dl 225-434 H [id number] 17:35:00* Test Item Value Reference Range Interpretation Comments PHOSPHORUS (BEAKER) (test code = 604) 3.4 mg/dL 2.3-4.7 Sour Bleaching Pleater ID - [id number] 17:35:00* Test Item Value Reference Range Interpretation Comments MAGNESIUM (BEAKER) (test code = 627) 1.7 mg/dL 1.6-2.6 Sour Bleaching Pleater ID - BSCOMPREHENSIVE METABOLIC [id number] 17:35:00* Test Item Value Reference Range Interpretation Comments TOTAL PROTEIN (BEAKER) (test code = 770) 6.4 gm/dL 6.0-8.3 ALBUMIN (BEAKER) (test code = 1145) 3.0 g/dL 3.5-5.0 L ALKALINE PHOSPHATASE (BEAKER) (test code = 346) 78 U/L 40-150 BILIRUBIN TOTAL (BEAKER) (test code = 377) 1.2 mg/dL 0.2-1.2 SODIUM (BEAKER) (test code = 381) 136 meq/L 136-145 POTASSIUM (BEAKER) (test code = 379) 3.8 meq/L 3.5-5.1 CHLORIDE (BEAKER) (test code = 382) 99 meq/L 98-107 CO2 (BEAKER) (test code = 355) 26 meq/L 22-29 BLOOD UREA NITROGEN (BEAKER) (test code = 354) 14 mg/dL 7-21 CREATININE (BEAKER) (test code = 358) 1.18 mg/dL 0.57-1.25 GLUCOSE RANDOM (BEAKER) (test code = 652) 73 mg/dL 70-105 CALCIUM (BEAKER) (test code = 697) 8.7 mg/dL 8.4-10.2 AST (SGOT) (BEAKER) (test code = 353) 27 U/L 5-34 ALT (SGPT) (BEAKER) (test code = 347) 9 U/L 6-55 EGFR (BEAKER) (test code = 1092) INSUFFICIENT CLINICAL DATA TO CALCULATE ESTIMATED GFR. Sour Bleaching Pleater ID - BSType and screen, [id number] 17:33:00* Test Item Value Reference Range Interpretation Comments ABO/RH AUTOMATED (BEAKER) (test code = 2260) B POSITIVE Ab Scrn (test code = 890-4) NEGATIVE [facility], [id number] 17:30:00* Test Item Value Reference Range Interpretation Comments LACTATE BLOOD ARTERIAL (2) (BEAKER) (test code = 2874) 1.7 mmol/L 0.5-2.2 Specimen slightly hemolyzed Sour Bleaching Pleater ID - BSCBC W/PLT COUNT & AUTO [id number] 17:12:00* Test Item Value Reference Range Interpretation Comments WHITE BLOOD CELL COUNT (BEAKER) (test code = 775) 19.3 K/ L 3.5- 10.5 H RED BLOOD CELL COUNT (BEAKER) (test code = 761) 4.29 M/ L 4.63-6 .08 L HEMOGLOBIN (BEAKER) (test code = 410) 12.3 GM/DL 13.7-17.5 L HEMATOCRIT (BEAKER) (test code = 411) 38.8 % 40.1-51.0 L MEAN CORPUSCULAR VOLUME (BEAKER) (test code = 753) 90.4 fL 79. 0-92.2 MEAN CORPUSCULAR HEMOGLOBIN (BEAKER) (test code = 751) 28.7 pg 25.7-32.2 MEAN CORPUSCULAR HEMOGLOBIN CONC (BEAKER) (test code = 752) 31.7 GM/DL 32.3-36.5 L RED CELL DISTRIBUTION WIDTH (BEAKER) (test code = 412) 15.4 % 11.6-14.4 H PLATELET COUNT (BEAKER) (test code = 756) 198 K/CU MM 150-450 MEAN PLATELET VOLUME (BEAKER) (test code = 754) 12.6 fL 9.4-12 .4 H NUCLEATED RED BLOOD CELLS (BEAKER) (test code = 413) 0 /100 WBC 0 -0 NEUTROPHILS RELATIVE PERCENT (BEAKER) (test code = 429) 87 % LYMPHOCYTES RELATIVE PERCENT (BEAKER) (test code = 430) 5 % MONOCYTES RELATIVE PERCENT (BEAKER) (test code = 431) 8 % EOSINOPHILS RELATIVE PERCENT (BEAKER) (test code = 432) 0 % BASOPHILS RELATIVE PERCENT (BEAKER) (test code = 437) 0 % NEUTROPHILS ABSOLUTE COUNT (BEAKER) (test code = 670) 16.84 K/ L 1.78-5.38 H LYMPHOCYTES ABSOLUTE COUNT (BEAKER) (test code = 414) 0.87 K/ L 1.32-3.57 L MONOCYTES ABSOLUTE COUNT (BEAKER) (test code = 415) 1.45 K/ L 0. 30-0.82 H EOSINOPHILS ABSOLUTE COUNT (BEAKER) (test code = 416) 0.01 K/ L 0.04-0.54 L BASOPHILS ABSOLUTE COUNT (BEAKER) (test code = 417) 0.03 K/ L 0. 01-0.08 IMMATURE GRANULOCYTES-RELATIVE PERCENT (BEAKER) (test code = 2801) 1 % 0-1 Platelet [id number] 17:10:00* Test Item Value Reference Range Interpretation Comments Platelets (test code = 777-3) 198 150- 450 K/CU MM DUDLEY (test code = DUDLEY) Sour Bleaching Pleater ID - [id number] Lab Interpretation (test code = 89548-4) Normal [facility]PLATE[facility] [id number] 17:10:00* Test Item Value Reference Range Interpretation Comments PLATELET COUNT (BEAKER) (test code = 756) 198 K/CU MM 150-450 Sour Bleaching Pleater ID - [id number] GAS, [id number] 16:48:00* Test Item Value Reference Range Interpretation Comments PH VENOUS (BEAKER) (test code = 701) 7.41 7.32-7.42 PCO2 VENOUS (BEAKER) (test code = 755) 44 mmHg 41-51 PO2 VENOUS (BEAKER) (test code = 702) 19 mmHg 25-40 L O2 SATURATION VENOUS (BEAKER) (test code = 703) 30.5 % 40.0-7 0.0 L HCO3 VENOUS (BEAKER) (test code = 705) 28 mmol/L 21-29 BASE EXCESS VENOUS (BEAKER) (test code = 704) 2.4 mmol/L -2.0-3.0 PATIENT TEMPERATURE (BEAKER) (test code = 1818) 36.6 C FIO2 (BEAKER) (test code = 1819) 36.0 % CT CHEST [id number] 20:17:00 [place] [address] Patient Name: GRETTA BYRD MR #: [id number] : 1935 Age/Sex: 83/M Req #: [id number] Adm Physician: GRETTA RODARTE MD Ordered by: CORAZON TOLEDO MD Report #: [id number] Location: [facility] Room/Bed: [place] [address] Procedure: [id number] CT/CT CHEST W Exam Date: Exam Time: REPORT STATUS: Signed CT chest pulmonary embolism pr otocol CPT code: 43631 INDICATION: Chest pain, shortness of breath Possible Pulmonary Embolism TECHNIQUE: Thin collimation axial images obt ained through the level of the pulmonary arteries with additional imaging thro ugh the chest following the uneventful administration of 100 cc of low osmolar , nonionic intravenous contrast. Images reconstructed into coronal and sagitt al MIPs for complete evaluation of the tortuous and overlapping pulmonary vasc ular structures and to reduce patient radiation dose. RADIATION DOSE: Total DLP: 565.88 mGy*cm Estimated effective dose: (DLP x 0.015 x si ze factor) mSv CTDIvol has been reviewed. It is below the limits set by t he Radiation Protocol Committee (RPC). Dose reduction techniques used: Au tomated exposure control, adjustment of the mAs and/or kVp according to patien t size, standardized low-dose protocol, and/or iterative reconstruction techni que. COMPARISON: CT chest 1045 hours. FINDINGS: Pulmonary artery: Im ages are mildly motion degraded. No filling defects are appreciated within the main, left, right, lobar or visualized segmental pulmonary arteries to sugges t embolism. The main pulmonary artery measures 4.1 cm in diameter Aorta: The thoracic aorta is not aneurysmal. No evidence for dissection. Calcificat ions are present throughout Lymph nodes: No enlarged axillary, supraclavicu lar lymph nodes. Multiple subcentimeter mediastinal and hilar lymph nodes. Sub carinal lymph nodes are increased in number and measure up to 12 mm. Thy roid: Normal in size without mass in the visualized parenchyma. Mediastinum : Pericardial effusion measures 26 mm with circumferential enhancement. There is an occlusion device in the left atrial appendage. Heavy calcifications thro ughout the coronary arteries. There is a small hiatal hernia Lungs: R ight Lung: Diffuse hyperinflation. Patchy atelectasis in the upper and lower l obes. Diffuse bronchial wall thickening without bronchiectasis. The reticulono dular opacities in the upper lobe have improved. Left Lung: Diffuse hyperi nflation. Posterior lower lobe atelectasis. Diffuse bronchial wall thickening. Trachea: Mild tracheobronchomalacia. Calcifications throughout the trach eobronchial tree. Pleura: Posterior layering right pleural effusion measure s 4.4 cm. Posterior layering left pleural effusion measures 4.1 cm. No enhance ment of the visceral or parietal pleura. No pneumothorax. Abdomen: The ga llbladder is absent. No mass or lymphadenopathy in the visualized portions. Th e spleen is mildly enlarged measuring 14 cm. Bones: Flowing osteophytes of the thoracic spine suggestive of DISH. No compression deformities. No destruct mattie lesions. IMPRESSION: 1. No evidence of pulmonary embolus or aorti c dissection. Enlarged main pulmonary artery suggestive of pulmonary artery hy pertension. 2. Large pericardial effusion. Pericardiocentesis is recommend ed. 3. COPD, bilateral pleural effusions, and bibasilar atelectasis. Improv ed reticulonodular opacities in the right upper lobe. 4. Mildly prominent mediastinal lymph nodes may be reactive to an infectious/infiltrate process. 5. Mild splenomegaly. Signed by: Dr. Adam Smart MD on 08/20/2019 8:26 PM Dictated By: ADAM SMART MD 25 Transcribed By: TONI on 08/20/192025 COPY TO: CORAZON TOLEDO MD CT CHEST [id number] 10:59:00 [place] [address] Patient Name: GRETTA BYRD MR #: [id number] : 1935 Age/Sex: 83/M Req #: [id number] Adm Physician: GRETTA RODARTE MD Ordered by: GRETTA RODARTE MD Report #: [id number] Location: [facility]/Bed: [place] [address] Procedure: [id number] CT/CT C HEST WO Exam Date: 08/20/19 Exam Time: 1030 REPORT STATUS: Signed EXAM: CT Chest WIT HOUT intravenous contrast 08/20/2019 9:38 AM INDICATION: Pneumonia COMPARISON : Chest radiograph of earlier the same day, chest CT 08/14/2019 TECHNIQUE: [facility] st was scanned utilizing a multidetector helical scanner from the lung apex th rough the level of the adrenal glands without administration of IV contrast. C oronal and sagittal reformations were obtained. Routine protocol was performed . IV CONTRAST: None RADIATION DOSE: Total DLP: 528 mGy*cm. Dose modulatio n, iterative reconstruction, and/or weight based adjustment of the mA/kV was u tilized to reduce the radiation dose to as low as reasonably achievable. CO MPLICATIONS: None FINDINGS: LINES/ TUBES: None. LUNGS AND AIRWAYS : Diffuse bronchial wall thickening. Smooth interlobular septal thickening, c onsistent with interstitial pulmonary edema. Bibasilar dependent subsegmental atelectasis. Increased interstitial opacities, predominantly peripherally Air ways are normal. PLEURA: Small bilateral pleural effusions. No pneumothorax . HEART AND MEDIASTINUM: The thyroid gland is normal. No supraclavicular, axillary, mediastinal, or hilar lymphadenopathy. Multichamber cardiomegaly. Ne w prominent pericardial effusion. Atherosclerotic calcifications involve the coronary arteries, thoracic aorta, and proximal great vessels.. The main pul monary artery is enlarged to 3.9 cm. UPPER ABDOMEN: Status post cholecyste ctomy. Sliding hiatal hernia. Diverticulosis. BONES: No acute osseous inj ury. SOFT TISSUES: Unremarkable. IMPRESSION: No lobar pneumonia. Di ffuse bronchial wall thickening can be seen in the setting of bronchitis. Incr eased interstitial opacities, predominantly peripherally, can be seen with aty pical infection or alternatively could be related to chronic interstitial lung disease. New prominent pericardial effusion. Smooth interlobular sept al thickening consistent with interstitial pulmonary edema. Bilateral ple ural effusions and bibasilar subsegmental atelectasis. Signed by: Dennis Echavarria MD on 08/20/2019 11:08 AM Dictated By: EMILY ECHAVARRIA MD 1108 Transcribed By: TONI on 08/20/19 1 108 COPY TO: GRETTA RODARTE MD CHEST SINGLE (PORTABLE)2019-08-20 06:50:00 [place] [address] Patient Name: GRETTA BYRD MR #: [id number] : 1935 Age/Sex: 83/M Req #: [id number] Adm Physician: Ordered by: FAIZA DIANA MD Report #: [id number] Location: ER Room/Bed: Procedure: 16 DX/CHEST SINGLE (PORTABLE) Exam Date: Exam Time: REPORT STATUS: Signed EXAMINAT ION: CHEST SINGLE (PORTABLE) INDICATION: sob, chest pain COMPARIS ON: Chest CT 08/14/2019 FINDINGS: TUBES and LINES: None. LUNGS: Normal lung volumes. Central bronchial wall thickening. Patchy airsp gerry opacities. Prominent interstitial lung markings. Prominent pulmonary vascu lature. PLEURA: No pleural effusion or pneumothorax. HEART AND M EDIASTINUM: Cardiac size is moderately enlarged. BONES AND SOFT TISSUE S: No acute osseous lesion. Soft tissues are unremarkable. Degenerative leggett ges in the spine and shoulders. UPPER ABDOMEN: No free air under the diaphr agm. IMPRESSION: Findings of multifocal bronchopneumonia Mod erate cardiomegaly and pulmonary vascular congestion. Signed by: Collin can DO on 08/20/2019 7:03 AM Dictated By: COLLIN WILEY DO Electronic ally Signed By: COLLIN WILEY DO on 08/20/19702 Transcribed By: TONI on 08/20/19702 COPY TO: FAIZA DIANA MD Bedside Glucose 2019-08-16 11:10:00* Test Item Value Reference Range Interpretation Comments Bedside Glucose (test code = 50643-7) 89 70-120 Meter ID: [id number]. Luke's Baptist Hospitalodium Level 2019-08-16 06:02:00* Test Item Value Reference Range Interpretation Comments Sodium Level (test code = 2951-2) 135 136-145 L [facility] CenterPotassium Nubqe5926-90-48 06:02:00* Test Item Value Reference Range Interpretation Comments Potassium Level (test code = 2823-3) 4.0 3.5-5.1 [facility] CenterChloride Fqwbu8680-89-14 06:02:00* Test Item Value Reference Range Interpretation Comments Chloride Level (test code = 2075-0) 102 98-107 [facility] CenterCarbon Dioxide Pfuwi6405-12-87 06:02:00* Test Item Value Reference Range Interpretation Comments Carbon Dioxide Level (test code = 2028-9) 29 22-29 [facility] CenterAnion Gea4563-85-73 06:02:00* Test Item Value Reference Range Interpretation Comments Anion Gap (test code = 28994-5) 8.0 8-16 [facility] CenterBlood Urea Huawdxut6441-90-74 06:02:00* Test Item Value Reference Range Interpretation Comments Blood Urea Nitrogen (test code = 3094-0) 16 7-26 [facility] CenterCreatinine2020-03-05 06:02:00* Test Item Value Reference Range Interpretation Comments Creatinine (test code = 2160-0) 1.11 0.72-1.25 [facility] CenterBUN/Creatinine Lspkj9957-39-69 06:02:00* Test Item Value Reference Range Interpretation Comments BUN/Creatinine Ratio (test code = 3097-3) 14 6-25 [facility] CenterEstimat Glomerular Filtration Rate 2019-08-16 06:02:00* Test Item Value Reference Range Interpretation Comments Estimat Glomerular Filtration Rate (test code = 699097143) > 60 >60 Ranges were taken from the National Kidney Disease Education Program and the [facility] Kid[facility] Foundation literature.Reference ranges:60 or greater: Jvhbtn81-99 ( for 3 consecutive months): Chronic kidney disease 15 or less: Kidney failureTitus Regional Medical CenterGlucose Yfzfs6691-11-66 06:02:00* Test Item Value Reference Range Interpretation Comments Glucose Level (test code = QNR7594) 76 74-118 [facility] CenterCalcium Ihjhx9730-38-53 06:02:00* Test Item Value Reference Range Interpretation Comments Calcium Level (test code = 19961-0) 8.9 8.4-10.2 [facility] CenterWhite Blood Duvxz2243-79-51 05:46:00* Test Item Value Reference Range Interpretation Comments White Blood Count (test code = 6690-2) 8.39 4.8-10.8 [facility] CenterRed Blood Jjeua8798-60-20 05:46:00* Test Item Value Reference Range Interpretation Comments Red Blood Count (test code = 789-8) 3.88 4.3-5.7 L [facility] CenterHemoglobin2020-03-05 05:46:00* Test Item Value Reference Range Interpretation Comments Hemoglobin (test code = 19669-1) 11.0 14.0-18.0 L [facility] CenterHematocrit2020-03-05 05:46:00* Test Item Value Reference Range Interpretation Comments Hematocrit (test code = 4544-3) 35.2 38.2-49.6 L [facility] CenterMean Corpuscular Cwaebg1934-39-39 05:46:00* Test Item Value Reference Range Interpretation Comments Mean Corpuscular Volume (test code = 787-2) 90.7 81-99 [facility] CenterMean Corpuscular Gprhzjillc2756-77-51 05:46:00* Test Item Value Reference Range Interpretation Comments Mean Corpuscular Hemoglobin (test code = 785-6) 28.4 28-32 [facility] CenterMean Corpuscular Hemoglobin Concent 2019-08-16 05:46:00* Test Item Value Reference Range Interpretation Comments Mean Corpuscular Hemoglobin Concent (test code = 786-4) 31.3 31-35 [facility] CenterRed Cell Distribution Cvvov4308-49-09 05:46:00* Test Item Value Reference Range Interpretation Comments Red Cell Distribution Width (test code = 08577-1) 14.8 11.7 -14.4 H [facility] CenterPlatelet Kbzyu5328-51-48 05:46:00* Test Item Value Reference Range Interpretation Comments Platelet Count (test code = 777-3) 163 140-360 [facility] CenterNeutrophils (%) (Auto)2019-08-16 05:46:00 * Test Item Value Reference Range Interpretation Comments Neutrophils (%) (Auto) (test code = 55262-7) 76.7 38.7-80.0 [facility] CenterLymphocytes (%) (Auto)2019-08-16 05:46:00 * Test Item Value Reference Range Interpretation Comments Lymphocytes (%) (Auto) (test code = 736-9) 11.6 18.0-39.1 L [facility] CenterMonocytes (%) (Auto)2019-08-16 05:46:00* Test Item Value Reference Range Interpretation Comments Monocytes (%) (Auto) (test code = 5905-5) 10.8 4.4-11.3 [facility] CenterEosinophils (%) (Auto)2019-08-16 05:46:00 * Test Item Value Reference Range Interpretation Comments Eosinophils (%) (Auto) (test code = 713-8) 0.4 0.0-6.0 [facility] CenterBasophils (%) (Auto)2019-08-16 05:46:00* Test Item Value Reference Range Interpretation Comments Basophils (%) (Auto) (test code = 706-2) 0.1 0.0-1.0 [facility] CenterIM GRANULOCYTES %2019-08-16 05:46:00* Test Item Value Reference Range Interpretation Comments IM GRANULOCYTES % (test code = IM GRANULOCYTES %) 0.4 0.0- 1.0 [facility] CenterNeutrophils # (Auto)2019-08-16 05:46:00* Test Item Value Reference Range Interpretation Comments Neutrophils # (Auto) (test code = 751-8) 6.4 2.1-6.9 [facility] CenterLymphocytes # (Auto)2019-08-16 05:46:00* Test Item Value Reference Range Interpretation Comments Lymphocytes # (Auto) (test code = 21985-1) 1.0 1.0-3.2 [facility] CenterMonocytes # (Auto)2019-08-16 05:46:00* Test Item Value Reference Range Interpretation Comments Monocytes # (Auto) (test code = 742-7) 0.9 0.2-0.8 H [facility] CenterEosinophils # (Auto)2019-08-16 05:46:00* Test Item Value Reference Range Interpretation Comments Eosinophils # (Auto) (test code = 711-2) 0.0 0.0-0.4 [facility] CenterBasophils # (Auto)2019-08-16 05:46:00* Test Item Value Reference Range Interpretation Comments Basophils # (Auto) (test code = 704-7) 0.0 0.0-0.1 [facility] CenterAbsolute Immature Granulocyte (auto 2019-08-16 05:46:00* Test Item Value Reference Range Interpretation Comments Absolute Immature Granulocyte (auto (enmanuel t code = Absolute Immature Granulocyte (auto) 0.03 0-0.1 [facility] Hospitaltress Test - Treadmill [id number] 18:12:00 [place] [address] Patient Name : GRETTA BYRD MR #: [id number] : 1935 Age/Sex: 83/M Adm Physician : GRETTA RODARTE MD Admit Date : 08/14/19 Location : [facility] Room/Bed : [place] [address] REPORT: EXERCISE S TRESS TEST DATE OF STUDY: 08/15/2019 08:00:00 Stress Test - Treadmill ONLY PROCEDURE: Lexiscan nuclear stress test. INDICATION: Shortnes s of breath. COMPLICATIONS: None. TECHNIQUE: The patient was given 11 mCi of Myoview. Resting images were obtained in the horizontal long axis, vertical long axis, and short axis. The patient was then hooked up to the EK G machine and Lexiscan was infused over 15 seconds. During Lexiscan infusion, the patient had no chest pain and no EKG changes. Immediately after Lexiscan infusion, the patient was given 33 mCi of Myoview. Stress images were obtained 30 minutes after completion of Lexiscan infusion. Stress images were obtaine d in the horizontal long axis, vertical long axis, and short axis. Results ar e as follows: 1. The resting EKG demonstrated atrial fibrillation with some n onspecific ST and T-wave changes. 2. There were no EKG changes and no sympt oms during Lexiscan infusion. 3. There was normal perfusion to all segments of the myocardium in both stress and rest. 4. There was a mildly dilated left ve ntricle with mild global left ventricular dysfunction and an ejection fraction of 48%. CONCLUSION: Normal perfusion to all segments of the myocardium in both stress and rest with no evidence of ischemia. Corazon Toledo MD [facility] 18 :12:56 /[id number] cc: Gretta Rodarte MD Signature Date Dictated By: CORAZON TOLEDO MD Transcribed By: MODL on 08/24/19 <Electronically signed by CORAZON TOLEDO MD><< Signature on File>>08/25/19 6422 COPY TO: GRETTA RODARTE MD Creatine Kinase [id number] 15:36:00* Test Item Value Reference Range Interpretation Comments Creatine Kinase MB (test code = 42191-7) 1.10 0-5.0 [facility] CenterTroponin [id number] 15:36:00* Test Item Value Reference Range Interpretation Comments Troponin I (test code = IDV7988) 0.039 0-0.300 [facility] CenterCreatine Gpirwf3191-29-91 15:32:00* Test Item Value Reference Range Interpretation Comments Creatine Kinase (test code = 2157-6) 37 30-200 [facility] CenterTotal Ltbqdzsuz8501-50-75 05:48:00* Test Item Value Reference Range Interpretation Comments Total Bilirubin (test code = 1975-2) 0.9 0.2-1.2 [facility] CenterAspartate Amino Transf (AST/SGOT) 2019-08-15 05:48:00* Test Item Value Reference Range Interpretation Comments Aspartate Amino Transf (AST/SGOT) (test code = Aspartate Amino Transf (AST/SGOT)) 19 5-34 [facility] CenterAlanine Aminotransferase (ALT/SGPT) 2019-08-15 05:48:00* Test Item Value Reference Range Interpretation Comments Alanine Aminotransferase (ALT/SGPT) (test code = 1742-6) 7 0-55 [facility] CenterTotal Zeyelad7140-32-97 05:48:00* Test Item Value Reference Range Interpretation Comments Total Protein (test code = 2885-2) 6.0 6.5-8.1 L [facility] CenterAlbumin2020-03-04 05:48:00* Test Item Value Reference Range Interpretation Comments Albumin (test code = 1751-7) 2.7 3.5-5.0 L [facility] CenterGlobulin2020-03-04 05:48:00* Test Item Value Reference Range Interpretation Comments Globulin (test code = 54032-3) 3.3 2.3-3.5 [facility] CenterAlbumin/Globulin Jbmnh6486-40-34 05:48:00 * Test Item Value Reference Range Interpretation Comments Albumin/Globulin Ratio (test code = 1759-0) 0.8 0.8-2.0 [facility] CenterAlkaline Zhczwpkqpbb3017-12-83 05:48:00* Test Item Value Reference Range Interpretation Comments Alkaline Phosphatase (test code = 6768-6) 77 40-150 [facility] CenterCT CHEST M8918-25-07 11:48:00 [facility] [address] [place] [address] Patient Name: GRETTA BYRD MR #: [id number] : 1935 Age/Sex: 83/M Req #: [id number] Adm Physician: GRETTA RODARTE MD Ordered by: CECI RODARTE DO Report #: [id number] Location: [facility] Room/Bed: [facility]- Procedure: [id number] CT/CT CHEST W Exam Date: 08/14/19 Exam Time: 1120 REPORT STATUS: Signed EXAMINATION: CT o f the chest with contrast, PE protocol. TECHNIQUE: Spiral CT images of the chest were performed from the lung apices through the level of the adrenal gl ands after the IV administration of 100 cc of Isovue 370. Thin section recons tructions were obtained with special concentration on the pulmonary arteries. COMPARISON: Chest radiograph 08/14/2019 CLINICAL HISTORY:Chest pain DISCUSSION: Vasculature: [<The main pulmonary artery, right and left pulmonary arteries, and their visualized lobar and segmental branches are patent, without filling defect. The pulmonary outflow tract is enlarged, measuring 3.9 cm transversely. Atherosclerotic calcification of the thoracic aorta, which is borderline ectatic (3.9 cm). Atherosclerotic calcification of the [place] coronary arteries and great vessel origins. Metallic probable occlusion device in the left atrial appendage. Lungs: Groundglass opacities with interlobular septal thickening predominantly in a perihilar distribution. Bandlike opacities in the right upper and lower lobes. 4 mm nodule in the lingula seen on series 3 image 56. Tree-in-bud nodular opacities anteriorly within the right upper lobe for example on series 3 image 51. Trace bilateral pleural effusions with passive atelectasis of the posterior basal segments of the lower lobes. Airways: Trachea, mainstem b ronchi, and lobar and segmental bronchi are patent, without filling defects. Pleura: Trace bilateral pleural effusions. No pneumothorax. Heart and mediastinum: Visualized portions of the thyroid gland appear normal. Mild car diomegaly with a small pericardial effusion. No axillary lymphadenopathy. Mild right hilar lymphadenopathy for example on series 2 image 49. Mediastinal lym ph nodes are increased in number but not enlarged by CT criteria. Abdomen : Visualized portions of the liver, spleen, pancreas, and adrenal glands are unremarkable. Moderate sliding hiatal hernia. Bones and soft tissues: Dege nerative changes of the thoracolumbar spine. Incompletely healed fracture defo rmities of the posterior left eighth, ninth, and 10th ribs. IMPRESSION: No pulmonary embolus to the level of the segmental branch pulmonary arteries. Interstitial and alveolar pulmonary edema with trace bilateral pleural ef fusions. Superimposed tree-in-bud nodules in the right upper lobe suggest a typical infection, with reactive mild right hilar lymphadenopathy. Athero sclerotic vascular disease with borderline ectasia of the ascending thoracic a tabatha (3.9 cm). Enlargement of the pulmonary outflow tract suggests underlyi ng pulmonary hypertension. Small pericardial effusion. Moderate hiat al hernia. 4 mm lingular nodule should be assessed for stability by CT scan of the chest in one year if the patient is at high risk of malignancy. Signed by: Dr. Corazon Chatman M.D. on 08/14/2019 12:03 PM Dictated By: CORAZON CHATMAN MD 120 3 Transcribed By: TONI on 08/14/19 1203 COPY TO: CECI RODARTE DO D-Dimer Quantitative (PE/DVT)2019-08-14 09:15:00* Test Item Value Reference Range Interpretation Comments D-Dimer Quantitative (PE/DVT) (test code = 95108-9) 4234 0- 400 H The Triage D-Dimer Test has not been evaluated for use as sole evidence for the presence or absence of PE or DVT. As with all in vitro diagnostic tests, the te st results should be interpreted by the physician in conjunction with clinical f indings and other test results.Test results are reported in D-dimer units.[facility])2019-08-14 09:01:00 [facility] [address] [place] [address] Patient Name: GRETTA BYRD MR #: [id number] : 6 Age/Sex: 83/M Req #: [id number] Adm Physician: Ordered by: CECI RODARTE DO Report #: [id number] Location: ER Room/Bed: Procedure: [id number] DX/CH EST SINGLE (PORTABLE) Exam Date: 08/14/19 Exam Time: 829 REPORT STATUS: Signed EXAM INATION: Pulmonary interstitial and airspace edema. INDICATION: Chest pain COMPARISON: None FINDINGS: LINES/TUBES:EKG leads overli e the chest. LUNGS:The lungs are moderately inflated. There is perihilar fu llness and indistinctness of the pulmonary vasculature. Bilateral interstitial and airspace opacities. PLEURA:No pleural effusion or pneumothorax. MEDIASTINUM:The cardiomediastinal silhouette appears normal in size and shape. BONES/SOFT TISSUES:No acute osseous injury. ABDOMEN:No free air under the diaphragm. IMPRESSION: Pulmonary interstitial and airspace edema. Signed by: Emily Echavarria MD on 08/14/2019 9:03 AM Dictated By: EMILY ECHAVARRIA MD 2 Transcribed By: TONI on 08/14/19902 COPY TO: CECI RODARTE DO Arterial Blood gA6115-12-34 08:29:00* Test Item Value Reference Range Interpretation Comments Arterial Blood pH (test code = 2744-1) 7.43 7.31-7.41 H [facility] CenterAr[facility] Blood Partial Pressure CO2 2019-08-14 08:29:00* Test Item Value Reference Range Interpretation Comments Arterial Blood Partial Pressure CO2 (test code = 2019-01) 38 41-51 L [facility] CenterArterial Blood Partial Pressure O2 2019-08-14 08:29:00* Test Item Value Reference Range Interpretation Comments Arterial Blood Partial Pressure O2 (test code = 2019-01) 99 80-105 [facility] CenterAr[facility]ial Blood MDW97272-87-65 08:29:00* Test Item Value Reference Range Interpretation Comments Arterial Blood HCO3 (test code = 1960-4) 25 23-28 [facility] CenterAr[facility]ial Blood Base Mkysio3112-37-31 08:29:00* Test Item Value Reference Range Interpretation Comments Arterial Blood Base Excess (test code = 1925-7) 1.0 -2-3 [facility] CenterAr[facility]ial Blood Oxygen Saturation 2019-08-14 08:29:00* Test Item Value Reference Range Interpretation Comments Arterial Blood Oxygen Saturation (test code = 2708-6) 98.0 95-98 [facility] CenterFiO22020-03-03 08:29:00* Test Item Value Reference Range Interpretation Comments FiO2 (test code = FiO2) 32 3L/M NC RIGHT RADIALTitus Regional Medical CenterB-Type Natriuretic Lhnrcgr3518-95-50 07:50:00* Test Item Value Reference Range Interpretation Comments B-Type Natriuretic Peptide (test code = 96472-6) 259.2 0-100 H [facility][U] XRAY FEMUR 2 VWS RIGHT [id number] 2019-07-04 11:17:00Images acquired, not reported on this accession number. [facility][U] XRAY FEMUR 2 VWS RIGHT [id number] 12:30:00Images acquired, not reported on this accession number.[facility] PhysiciansUric Rrcs7782-54-20 13:59:00* Test Item Value Reference Range Interpretation Comments Uric Acid (test code = 3084-1) 3.7 4.8-8.0 L [facility] CenterUric Gcvs8547-78-55 13:59:00* Test Item Value Reference Range Interpretation Comments Uric Acid (test code = 3084-1) 3.7 4.8-8.0 L [facility] CenterErythrocyte Sedimentation Taik9325-41-99 13:30:00* Test Item Value Reference Range Interpretation Comments Erythrocyte Sedimentation Rate (test code = 4537-7) 29 0- 13 H [facility] CenterErythrocyte Sedimentation Ftqw3403-82-99 13:30:00* Test Item Value Reference Range Interpretation Comments Erythrocyte Sedimentation Rate (test code = 4537-7) 29 0- [address] [facility] Vspxn6502-45-74 13:29:00* Test Item Value Reference Range Interpretation Comments Sodium Level (test code = 2951-2) 136 136-145 [facility] CenterPotassium Xfqxe0201-84-49 13:29:00* Test Item Value Reference Range Interpretation Comments Potassium Level (test code = 2823-3) 4.6 3.5-5.1 [facility] CenterChloride Uakex4630-33-10 13:29:00* Test Item Value Reference Range Interpretation Comments Chloride Level (test code = 2075-0) 101 98-107 [facility] CenterCarbon Dioxide Ioszj3275-34-10 13:29:00* Test Item Value Reference Range Interpretation Comments Carbon Dioxide Level (test code = 2028-9) 25 - [facility] CenterAnion Obq5723-43-51 13:29:00* Test Item Value Reference Range Interpretation Comments Anion Gap (test code = 78054-8) 14.6 8-16 [facility] CenterBlood Urea Gxshxbbb2907-08-11 13:29:00* Test Item Value Reference Range Interpretation Comments Blood Urea Nitrogen (test code = 3094-0) 12 7-26 [facility] CenterCreatinine2019-12-11 13:29:00* Test Item Value Reference Range Interpretation Comments Creatinine (test code = 2160-0) 0.99 0.72-1.25 [facility] CenterBUN/Creatinine Mkxut1727-87-12 13:29:00* Test Item Value Reference Range Interpretation Comments BUN/Creatinine Ratio (test code = 3097-3) 12 6- [facility] CenterEstimat Glomerular Filtration Rate 2019-05-23 13:29:00* Test Item Value Reference Range Interpretation Comments Estimat Glomerular Filtration Rate (test code = 391566666) > 60 >60 Ranges were taken from the National Kidney Disease Education Program and the [facility] Foundation literature.Reference ranges:60 or greater: Jfkeia59-63 ( for 3 consecutive months): Chronic kidney disease 15 or less: Kidney failureTitus Regional Medical CenterGlucose Nbuqx8662-26-44 13:29:00* Test Item Value Reference Range Interpretation Comments Glucose Level (test code = RWD5498) 75 74-118 [facility] CenterCalcium Dichz8258-88-57 13:29:00* Test Item Value Reference Range Interpretation Comments Calcium Level (test code = 25352-0) 8.3 8.4-10.2 L [facility] CenterTotal Lntbrulns4464-50-43 13:29:00* Test Item Value Reference Range Interpretation Comments Total Bilirubin (test code = 1975-2) 1.3 0.2-1.2 H [facility] CenterAspartate Amino Transf (AST/SGOT) 2019-05-23 13:29:00* Test Item Value Reference Range Interpretation Comments Aspartate Amino Transf (AST/SGOT) (test code = Aspartate Amino Transf (AST/SGOT)) 30 5-34 [facility] CenterAlanine Aminotransferase (ALT/SGPT) 2019-05-23 13:29:00* Test Item Value Reference Range Interpretation Comments Alanine Aminotransferase (ALT/SGPT) (test code = 1742-6) 15 0-55 [facility] CenterTotal Spvbmsm1541-27-55 13:29:00* Test Item Value Reference Range Interpretation Comments Total Protein (test code = 2885-2) 6.3 6.5-8.1 L [facility] CenterAlbumin2019-12-11 13:29:00* Test Item Value Reference Range Interpretation Comments Albumin (test code = 1751-7) 2.8 3.5-5.0 L [facility] CenterGlobulin2019-12-11 13:29:00* Test Item Value Reference Range Interpretation Comments Globulin (test code = 60366-0) 3.5 2.3-3.5 [facility] CenterAlbumin/Globulin Tnkow2538-72-80 13:29:00 * Test Item Value Reference Range Interpretation Comments Albumin/Globulin Ratio (test code = 1759-0) 0.8 0.8-2.0 [facility] CenterAlkaline Grbjabbvdto7728-23-82 13:29:00* Test Item Value Reference Range Interpretation Comments Alkaline Phosphatase (test code = 6768-6) 135 40-150 [facility] CenterWRIST COMPLETE MJUS9116-99-68 12:22:00 [facility] [address] [address] Patient Name: GRETTA BYRD MR #: [id number] : 6 Age/Sex: 83/M Req #: [id number] Adm Physician: Ordered by: CECI ZAVALA P[employer] 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 No obvious acute fracture or dislocation is appreci ated. There are prominent calcifications within the radiocarpal and ulnocarpal joint. No radiopaque foreign body is appreciated. Signed by: Dr. Justen mae MD on 05/23/2019 12:26 PM Dictated By: JUSTEN CLIFFORD MD Electronic ally Signed By: JUSTEN CLIFFORD MD on 05/23/19 1226 Transcribed By: TONI on 05/01 1226 COPY TO: CECI ZAVALA P[employer] MACHINE CRANE OPERATOR White Blood Count 2019-05-23 12:17:00* Test Item Value Reference Range Interpretation Comments White Blood Count (test code = 6690-2) 8.38 4.8-10.8 [facility] CenterRed Blood Emumh9501-16-49 12:17:00* Test Item Value Reference Range Interpretation Comments Red Blood Count (test code = 789-8) 4.94 4.3-5.7 [facility] CenterHemoglobin2019-12-11 12:17:00* Test Item Value Reference Range Interpretation Comments Hemoglobin (test code = 77595-3) 14.1 14.0-18.0 [facility] CenterHematocrit2019-12-11 12:17:00* Test Item Value Reference Range Interpretation Comments Hematocrit (test code = 4544-3) 46.3 38.2-49.6 [facility] CenterMean Corpuscular Eimgir4966-57-76 12:17:00* Test Item Value Reference Range Interpretation Comments Mean Corpuscular Volume (test code = 787-2) 93.7 81-99 [facility] CenterMean Corpuscular Wdudhbvqau7482-38-35 12:17:00* Test Item Value Reference Range Interpretation Comments Mean Corpuscular Hemoglobin (test code = 785-6) 28.5 28-32 [facility] CenterMean Corpuscular Hemoglobin Concent 2019-05-23 12:17:00* Test Item Value Reference Range Interpretation Comments Mean Corpuscular Hemoglobin Concent (test code = 786-4) 30.5 31-35 L [facility] CenterRed Cell Distribution Ttkhe1032-58-06 12:17:00* Test Item Value Reference Range Interpretation Comments Red Cell Distribution Width (test code = 13308-9) 19.9 11.7 -14.4 H [facility] CenterPlatelet Uknxo8954-71-15 12:17:00* Test Item Value Reference Range Interpretation Comments Platelet Count (test code = 777-3) 155 140-360 [facility] CenterNeutrophils (%) (Auto)2019-05-23 12:17:00 * Test Item Value Reference Range Interpretation Comments Neutrophils (%) (Auto) (test code = 32051-1) 75.4 38.7-80.0 [facility] CenterLymphocytes (%) (Auto)2019-05-23 12:17:00 * Test Item Value Reference Range Interpretation Comments Lymphocytes (%) (Auto) (test code = 736-9) 12.2 18.0-39.1 L [facility] CenterMonocytes (%) (Auto)2019-05-23 12:17:00* Test Item Value Reference Range Interpretation Comments Monocytes (%) (Auto) (test code = 5905-5) 11.3 4.4-11.3 [facility] CenterEosinophils (%) (Auto)2019-05-23 12:17:00 * Test Item Value Reference Range Interpretation Comments Eosinophils (%) (Auto) (test code = 713-8) 0.8 0.0-6.0 [facility] CenterBasophils (%) (Auto)2019-05-23 12:17:00* Test Item Value Reference Range Interpretation Comments Basophils (%) (Auto) (test code = 706-2) 0.1 0.0-1.0 [facility] CenterIM GRANULOCYTES %2019-05-23 12:17:00* Test Item Value Reference Range Interpretation Comments IM GRANULOCYTES % (test code = IM GRANULOCYTES %) 0.2 0.0- 1.0 [facility] CenterNeutrophils # (Auto)2019-05-23 12:17:00* Test Item Value Reference Range Interpretation Comments Neutrophils # (Auto) (test code = 751-8) 6.3 2.1-6.9 [facility] CenterLymphocytes # (Auto)2019-05-23 12:17:00* Test Item Value Reference Range Interpretation Comments Lymphocytes # (Auto) (test code = 95800-6) 1.0 1.0-3.2 [facility] CenterMonocytes # (Auto)2019-05-23 12:17:00* Test Item Value Reference Range Interpretation Comments Monocytes # (Auto) (test code = 742-7) 1.0 0.2-0.8 H [facility] CenterEosinophils # (Auto)2019-05-23 12:17:00* Test Item Value Reference Range Interpretation Comments Eosinophils # (Auto) (test code = 711-2) 0.1 0.0-0.4 [facility] CenterBasophils # (Auto)2019-05-23 12:17:00* Test Item Value Reference Range Interpretation Comments Basophils # (Auto) (test code = 704-7) 0.0 0.0-0.1 [facility] CenterAbsolute Immature Granulocyte (auto 2019-05-23 12:17:00* Test Item Value Reference Range Interpretation Comments Absolute Immature Granulocyte (auto (enmanuel t code = Absolute Immature Granulocyte (auto) 0.02 0-0.1 [facility] CenterXRAY Ribs bilateral with PA chest [id number] 2019-05-14 08:12:00EXAM: XR BILATERAL RIB 2 VIEWS AND PA CHESTDATE: 05/14/2019 8:12 CSTINDICATION: - R07.81 PleurodyniaCOMPARISON: Chest x-ray dated 04/01/2019TECHNIQUE: Frontal and oblique views of the bilateral ribs and a single PA viewof the chestFINDINGS: No displaced rib fracture or other acute bony abnormality isidentified.The lungs are clear without pneumothorax. The heart size is within normallimits.IMPRESSION: No acute abnormality.--Read by: Aric Yadav MDDictated Date/time: 05/14/19 09:24Electronically Signed by: Aric Yadav MD 05/14/1909:26FINAL REPORT [facility][U] XRAY KNEE 1 OR 2 VWS RIGHT [id number] 12:46:00Images acquired, not reported on this accession number.[facility][U] XRAY BONE LENGTH STUDY-SCANOGRAM [id number] 12:46:00 Images acquired, not reported on this accession number.[facility]
[2020-04-18] MEDS ORDERED: SODIUM CHLORIDE 0.9% 1000ML 1,000 ML IV STA (21:35)
[2020-04-18] MEDS ORDERED: SODIUM CHLORIDE 0.9% 1000ML 1,000 ML ONE (21:44)
[2020-04-18] MEDS ORDERED: IOPAMIDOL 370 MG/ML 200 ML INFUS..BTL INJ ONE (22:49)
[2020-04-18] MEDS ORDERED: SODIUM CHLORIDE 0.9% 50ML 50 ML ONE (22:50)
[2020-04-19] VITALS (8 sets, daily range): BP systolic 128–160; BP diastolic 60–93
--- NOTE | 2020-04-19 00:11 | Diagnostic Imaging Report ---
EXAM: CT Abdomen and Pelvis WITH contrast INDICATION: ^Y ^ABD PAIN ^[id number] ^[id number] COMPARISON: CT dated 07/25/2009 TECHNIQUE: Abdomen and pelvis were scanned utilizing a multidetector helical scanner from the lung base to the pubic symphysis after administration of IV contrast. Coronal and sagittal reformations were obtained. Dose modulation, iterative reconstruction, and/or weight based adjustment of the mA/kV was utilized to reduce the radiation dose to as low as reasonably achievable. Routine protocol was performed. Scan was performed when during portal venous phase. IV CONTRAST: 100 mL of Isovue-370 ORAL CONTRAST: None COMPLICATIONS: None RADIATION DOSE: Total DLP: 507.01 mGy*cm Estimated effective dose: (DLP x 0.015 x size factor) mSv CTDIvol has been reviewed. It is below the limits set by the Radiation Protocol Committee (RPC). FINDINGS: LINES and TUBES: None. LOWER THORAX: Partially seen atherosclerotic calcification of coronary arteries. Mild dependent atelectasis. HEPATOBILIARY: No hepatic mass. Tiny left hepatic lobe hypodensity is too small to characterize. No biliary ductal dilation. GALLBLADDER: Surgically absent. SPLEEN: Splenomegaly. PANCREAS: No focal masses or ductal dilatation. ADRENALS: No adrenal nodules KIDNEYS/URETERS: Kidneys enhance symmetrically. No hydronephrosis. No renal mass. Left renal inferior pole subcentimeter hypodensity is too small to characterize. No stones. GI TRACT: No abnormal distention or evidence of bowel obstruction. Mild wall thickening of the descending and rectosigmoid colon. There are diverticula within the colon without evidence of diverticulitis. Appendix is not visualized. Moderate size hiatal hernia. PELVIC ORGANS/BLADDER: Unremarkable. LYMPH NODES: No lymphadenopathy. VESSELS: There is moderate atherosclerotic disease in the aorta and major arterial branches. PERITONEUM / RETROPERITONEUM: No free air or fluid. BONES: Generalized demineralization. Right femoral intramedullary mckenzie fixation is partially visualized. Old posterior left-sided rib fracture deformities. Multilevel advanced degenerative changes of lumbar spine. SOFT TISSUES: Unremarkable. IMPRESSION: 1. Mild wall thickening of the descending and rectosigmoid colon, could be due to underdistention versus infectious/inflammatory colitis in the appropriate clinical context. 2. Colonic diverticulosis without evidence of diverticulitis. 3. Moderate size hiatal hernia. Signed by: Dr. Ulysses Burleson MD on 04/19/2020 12:08 AM
[2020-04-19] MEDS ORDERED: LEVOFLOXACIN 500MG/D5W 100ML IV SCH (00:30)
--- OUTSIDE RECORDS SUMMARY | 2020-04-19 00:43 | XMS REPORT | Continuity of Care Document ---
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 Role Phone [facility] [employer] [facility] Unavailable Un available Problems Problem Status Onset Date Classification Date Reported Comments Source Hypertension Active 10/08/2013 [facility] Hyperlipidemia Active 10/08/2013 [facility] Atrial Fibrillation Active 10/08/2013 [facility] Rotator Cuff Tendonitis Active 08/30/2013 [facility] Vaccines Prophylactic Need Act kimmy 08/30/2013 [facility] Hypothyroidism Active 10/08/2013 [facility] Generalized Osteoarthritis Act kimmy 10/08/2013 [facility] Lumbar Radiculopathy Active 10/08/2013 [facility] Osteoarthritis Of Knee Active 10/08/2013 [facility] Peripheral Neuropathy Active 10/08/2013 [facility] Medications Medication Details Route Status Patient Instructions Ordering Provider Order Date Source DULoxetine HCl 60 MG Oral Capsule Delaye d Release Particles ; Start Date: 09/28/2013; End Date: 06/1899 (Active) Active 09/28/2013 [facility] Levothyroxine Sodium 100 MCG Oral Tablet ; Start Date: 03/27/2013; End Date: (Active) Active 03/27/2013 [facility] Vitamin B-12 ER 1000 MCG Oral Tablet Extended Release ; Start Date: 07/27/2012 (Active) Active 07/27/2012 [facility] Oxybutynin Chloride 5 MG Oral Tablet ; Start Date: 07/27/2012 (Active) Active 07/27/2012 [facility] Lisinopril 20 MG Oral Tablet ; Start Date: 07/14/2012; End Date: (Active) Active 07/14/2012 [facility] Amiodarone HCl 200 MG Oral Tablet ; Start Date: 07/14/2012; End Date: (Active) Active 07/14/2012 [facility] Lipitor 20 MG Oral Tablet ; St art Date: 07/14/2012 (Active) Active 07/14/2012 [facility] Doxazosin Mesylate 8 MG Oral Tablet [...] 07/06/2012 [facility] PredniSONE TABS (Active) Active [facility] Centrum Silver TABS (Active) Active [facility] Allergies, Adverse Reactions, Alerts Substance Category Reaction Severity Reaction type Status Date Reported Comments Source Ceftin TABS drug allergy drug allergy Active [facility] Not Known [facility] Immunizations Immunization Date Given Site Status Last Updated Comments Source Fluzone Intramuscular Injectable 02/13/2013 completed [facility] Influenza completed [facility] Tdap completed [facility] Pneumo completed [facility] Results No Data Provided for This [...] ADM Date DC Date Status Source AUDIT [id number] 07/06/2012 07/07/2012 [facility] STERLING, Provi guero: SE,NUCLEAR, Status: Pen, Time: 1:15 PM [id number] 07/13/19 13 07/07/2012 [facility] AUDIT [id number] 07/14/2012 07/15/2012 [facility] ECH, Provi guero: FADYAJITH LIRA, Status: Pen, Time: 9:00 AM [id number] 07/20/19 13 07/15/2012 [facility] EST, Provi guero: UMBERTO RINALDI, Status: Pen, Time: 10:00 AM [id number] 07/20/19 13 07/07/2012 [facility] STERLING, Provi guero: SE,NUCLEAR, Status: Pen, Time: 1:00 PM [id number] 07/20/19 13 07/15/2012 [facility] AUDIT [id number] 07/27/2012 07/28/2012 [facility] AUDIT [id number] 08/31/2012 09/01/2012 [facility] AUDIT [id number] 11/14/2012 11/14/2012 [facility] AUDIT [id number] 01/06/2013 01/06/2013 [facility] AUDIT [id number] 01/11/2013 01/11/2013 [facility] FUP, Provi guero: TAMAR MARIANO, Status: Pen, Time: 8:30 AM [id number] 01/20/20 13 01/11/2013 [facility] AUDIT [id number] 01/20/2013 01/20/2013 [facility] EST, Provi guero: UMBERTO RINALDI, Status: Pen, Time: 10:30 AM [id number] 01/26/20 13 11/14/2012 [facility] AUDIT [id number] 02/14/2013 02/14/2013 [facility] AUDIT [id number] 03/02/2013 03/02/2013 [facility] AUDIT [id number] 05/17/2013 05/17/2013 [facility] AUDIT [id number] 05/22/2013 05/22/2013 [facility] AUDIT [id number] 07/06/2013 07/06/2013 [facility] AUDIT [id number] 08/24/2013 08/24/2013 [facility] EST, Provi ugero: UMBERTO RNIALDI, Status: Pen, Time: 2:30 PM [id number] 08/31/19 14 08/24/2013 [facility] AUDIT [id number] 08/30/2013 08/30/2013 [facility] AUDIT [id number] 10/05/2013 10/05/2013 [facility] AUDIT [id number] 10/08/2013 10/08/2013 [facility] Bouchra VELEZ guero: UMBERTO RINALDI, Status: Pen, Time: 10:30 AM [id number] 02/28/2014 10/08/2013 [facility] Procedures No Data Provided for This Section Assessment and Plan No Data Provided for This Section Plan of Care Plan of Care Date Source [QLH] HEPATIC FUNCTION PANEL Routine[QLH ] LIPID PANEL Routine 10/08/2013 [facility] [QLH] HEPATIC FUNCTION PANEL Routine[QLH ] LIPID PANEL Routine 10/05/2013 [facility] [QLH] LIPID PANEL 08/20/2013 Routine[QLH ] HEPATIC FUNCTION PANEL 08/20/2013 Routine[QLH] HEPATIC FUNCTION PANEL Routine[QLH] LIPID PANEL Routine 08/30/2013 [facility] [QLH] LIPID PANEL 08/20/2013 Routine[QLH ] HEPATIC FUNCTION PANEL 08/20/2013 Routine 08/24/2013 [facility] [QLH] LIPID PANEL 08/20/2013 Routine[QLH ] HEPATIC FUNCTION PANEL 08/20/2013 Routine 07/06/2013 [facility] [QLH] LIPID PANEL 08/20/2013 Routine[QLH ] HEPATIC FUNCTION PANEL 08/20/2013 Routine 05/22/2013 [facility] [QLH] LIPID PANEL 08/20/2013 Routine[QLH ] HEPATIC FUNCTION PANEL 08/20/2013 Routine[QLH] TSH, 3RD GENERATION 05/17/2013 Routine[Q] LIPID PANEL WITH REFLEX TO DIRECT LDL 05/17/2013 Routine[QLH] CBC (INCLUDES DIFF/PLT) 05/17/2013 Routine[QLH] CMP W/EGFR 05/17/2013 Routine 05/17/2013 [facility] Orthopedics Referral 02/13/2013 Routine 03/02/2013 [facility] Orthopedics Referral 02/13/2013 Routine 02/14/2013 [facility] Social History Social History Date Source Former Smoker (V15.82); (Active) Marital History - Currently (Active) Never Used Drugs (Active) No History of Never Drank Alcohol (Denied) Stopped Drinking Alcohol (Active) 10/08/2013 [facility] Family History Value Date S ource Family history of Denial Of Any Signific ant Medical History (Active) 10/08/2013 [facility] Family history of Denial Of Any Signific ant Medical History (Active) 10/05/2013 [facility] Family history of Denial Of Any [...] Any Signific ant Medical History (Active) 05/17/2013 [facility] Advance Directives Order Name Results Value Date Source Advance Directives Advance Dir ectives No Advance Directives available. 10/08/2013 [facility] Advance Directives Advance Dir ectives No Advance Directives available. 10/05/2013 [facility] Advance Directives Advance Dir ectives No Advance Directives available. 08/30/2013 [facility] Advance Directives Advance Dir ectives No Advance Directives available. 08/24/2013 [facility] Advance Directives Advance Dir ectives No Advance Directives available. 07/06/2013 [facility] Advance Directives Advance Dir ectives No Advance Directives available. 05/22/2013 [facility] Advance Directives Advance Dir ectives No Advance Directives available. 05/17/2013 [facility] Advance Directives Advance Dir ectives No Advance Directives available. 03/02/2013 [facility] Advance Directives Advance Dir ectives No Advance Directives available. 02/14/2013 [facility] Advance Directives Advance Dir ectives No Advance Directives available. 01/20/2013 [facility] Advance Directives Advance Dir ectives No Advance Directives available. 01/11/2013 [facility] Advance Directives Advance Dir ectives No Advance Directives available. 01/06/2013 [facility] Advance Directives Advance Dir ectives No Advance Directives available. 11/14/2012 [facility] Advance Directives Advance Dir ectives No Advance Directives available. 09/01/2012 [facility] Advance Directives Advance Dir ectives No Advance Directives available. 07/28/2012 [facility] Advance Directives Advance Dir ectives No Advance Directives available. 07/15/2012 [facility] Advance Directives Advance Dir ectives No Advance Directives available. 07/07/2012 [facility] Functional Status No Data Provided for This Section
--- OUTSIDE RECORDS SUMMARY | 2020-04-19 00:43 | XMS REPORT | Clinical Summary ---
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 artery of viejas heart without angina pectoris, Chronic atrial fibrillation [...] disease involving nativ e coronary artery of viejas heart without angina pectoris Status post creation of pericardial [place] Acute respiratory insufficiency Atrial fibrillation with RVR Encounters Care Team Description Date Type Specialty Miroslava Newsome MD Appointment 10/24/2019 Telephone Geriatric Medicine [facility] Encephalopathy (Primary Dx) 10/04/2019 Orders Only Physical Medicine a al Rehabilitation [facility] [place] stokes Pericardial effusion s/p window by Dr. 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; Chronic atrial fibrillation; [...] General Internal Me dicine 08/21/2019 Travel after 04/19/2019 Social History Date Tobacco Use Types Packs/Day [...] ms QTC Calculatio n(Bazett) 554 ms P [place] 69 degrees R [place] 49 degrees T [place] 63 degrees Normal sinus rhythm Prolonged QT [...] ms QTC Calculatio n(Bazett) 556 ms P [place] 71 degrees R [place] 48 degrees T [place] 64 degrees Normal sinus rhythm Nonspecifi c [...] ms QTC Calculatio n(Bazett) 611 ms P [place] 76 degrees R [place] 46 degrees T [place] 83 degrees Normal sinus rhythm Possible Inferior [...] ms QTC Calculatio n(Bazett) 654 ms P [place] 68 degrees R [place] 37 degrees T [place] 64 degrees Normal sinus rhythm ST & [...] ms QTC Calculatio n(Bazett) 505 ms R [place] 52 degrees T [place] 69 degrees Atrial fibrillati on with rapid ventricula r response Cannot rule out Anterior infarct , new Inferior injury pattern * ACUTE IN * Abnormal ECG When compared with ECG [...] ms QTC Calculatio n(Bazett) 593 ms R [place] 39 degrees T [place] 65 degrees Atrial fibrillati on with premature ventricula r or aberrantly conducted complexes ST elevation consider inferior injury or acute infarct Prolonged QT * ACUTE IN * Abnormal ECG When compared with ECG of 0 16:58, QT has lengthened ECG 12-LEAD STAT 08/21/2019 5:02 PM CDT ECG 12-LEAD Routine 08/21/2019 4:58 PM CDT Procedure Note - Interface, External Ris In - 08/24/2019 4:14 PM CDT Ventricula r Rate 101 BPM Atrial Rate 94 BPM QRS Duration 92 ms Q-T Interval 400 ms QTC Calculatio n(Bazett) 518 ms R [place] 41 degrees T [place] 69 degrees Atrial fibrillati on with rapid ventricula r response with premature ventricula r or aberrantly conducted complexes ST elevation consider inferior injury or acute infarct * ACUTE IN * Abnormal ECG No previous ECGs available [...] STAT 08/21/2019 DIFFERENTIAL 4:40 PM CDT after 04/19/2019 Results * RHYTHM STRIP - SCAN (09/12/2019 [...] included. WBC 8.0 3.5 - 10.5 K/L [facility] RBC 3.67 (L) 4.63 - 6.08 M/L [facility] Hemoglobin 10.4 (L) 13.7 - 17.5 GM/DL [facility] Hematocrit 32.0 (L) 40.1 - 51.0 % [facility] MCV 87.2 79.0 - 92.2 fL [facility] MCH 28.3 25.7 - 32.2 pg [facility] MCHC 32.5 32.3 - 36.5 GM/DL [facility] RDW 16.7 (H) 11.6 - 14.4 % [facility] Platelets 170 150 - 450 K/CU MM [facility] MPV 13.0 (H) 9.4 - 12.4 fL [facility] Specimen Blood - Entire right upper arm (body structure) Performing Organization Address [facility] one Number [address] [address] ASHLEY * Basic Metabolic Panel (09/10/2019 4:06 AM CDT) Only the most recent of 27 results within the time period is included. Sodium 133 (L) 136 - 145 meq/L [facility] Potassium 3.7 3.5 - 5.1 meq/L [facility] Chloride 92 (L) 98 - 107 meq/L [facility] CO2 34 (H) 22 - 29 meq/L [facility] BUN 32 (H) 7 - 21 mg/dL [facility] Creatinine 1.78 (H) 0.57 - 1.25 mg/dL [facility] Glucose 92 70 - 105 mg/dL [facility] Calcium 7.9 (L) 8.4 - 10.2 mg/dL [facility] EGFR 37Comment: ESTIMATED GFR IS mL/min/1.73 sq m [facility] NOT ACCURATE CREATININE [facility] CLEARANCE IN PREDICTING GLOMERULAR FILTRATION RATE. ESTIMATED GFR IS NOT APPLICABLE FOR DIALYSIS PATIENTS. Specimen Blood - Entire right upper arm (body structure) Performing Organization Address [facility] one Number [address] [address] ASHLEY * Comprehensive metabolic panel (09/08/2019 4:01 AM CDT) Only the most recent of 2 results within the time period is included. Protein, Total 5.9 (L) 6.0 - 8.3 gm/dL [facility] Albumin 3.4 (L) 3.5 - 5.0 g/dL [facility] Alkaline 83 40 - 150 U/L [facility] Phosphatase [facility] Total Bilirubin 1.1 0.2 - 1.2 mg/dL [facility] Sodium 132 (L) 136 - 145 meq/L [facility] Potassium 3.9 3.5 - 5.1 meq/L [facility] Chloride 92 (L) 98 - 107 meq/L [facility] CO2 33 (H) 22 - 29 meq/L [facility] BUN 30 (H) 7 - 21 mg/dL [facility] Creatinine 1.91 (H) 0.57 - 1.25 mg/dL [facility] Glucose 87 70 - 105 mg/dL [facility] Calcium 8.2 (L) 8.4 - 10.2 mg/dL [facility] AST 18 5 - 34 U/L [facility] ALT 15 6 - 55 U/L [facility] EGFR 34Comment: ESTIMATED GFR IS mL/min/1.73 sq m [facility] NOT ACCURATE CREATININE [facility] CLEARANCE IN PREDICTING GLOMERULAR FILTRATION RATE. ESTIMATED GFR IS NOT APPLICABLE FOR DIALYSIS PATIENTS. Specimen Blood - Entire right upper arm (body structure) Performing Organization Address City/State/Zipcode Ph one Number [facility] [address] [place], [place] [address] ASHLEY * CBC with platelet count + automated diff (09/08/2019 4:00 AM CDT) Only the most recent of 21 results within the time period is included. [facility] WBC 13.8 (H) 3.5 - 10.5 K/L [facility] RBC 4.01 (L) 4.63 - 6.08 M/L [facility] Hemoglobin 11.2 (L) 13.7 - 17.5 GM/DL [facility] Hematocrit 34.5 (L) 40.1 - 51.0 % [facility] MCV 86.0 79.0 - 92.2 fL [facility] MCH 27.9 25.7 - 32.2 pg [facility] MCHC 32.5 32.3 - 36.5 GM/DL [facility] RDW 16.5 (H) 11.6 - 14.4 % [facility] Platelets 163 150 - 450 K/CU MM [facility] MPV 13.4 (H) 9.4 - 12.4 fL [facility] % Neutros 84 % [facility] % Lymphs 7 % [facility] % Monos 9 % [facility] % Eos 0 % [facility] % Baso 0 % [facility] # Neutros 11.54 (H) 1.78 - 5.38 K/L [facility] # Lymphs 0.93 (L) 1.32 - 3.57 K/L [facility] # Monos 1.23 (H) 0.30 - 0.82 K/L [facility] # Eos 0.03 (L) 0.04 - 0.54 K/L [facility] # Baso 0.03 0.01 - 0.08 K/L [facility] Immature 0 0 - 1 % [facility] lative Specimen Blood - Entire right upper arm (body structure) Performing Organization Address City/State/Zipcode Ph one Number [facility] - [address] [place], [place] [address] ASHLEY * TSH/Free T4 If Indicated (09/06/2019 8:55 AM CDT) TSH 3.92 0.35 - 4.94 uIU/mL [facility] Specimen Blood Narrative Performed At Serologist ID - KATELYN White [facility] Performing Organization Address City/[facility] Ph one Number [facility] [address] [place], [place] [address] MEDICAL CENTER * XR chest [...] Verified Date/Time: 09/06/2019 04:50:50 Performing Organization Address City/[facility]/[place]ust[place] Ph one Number GE R[facility] * Vitamin D, 25-Hydroxy (09/06/2019 4:11 AM CDT) Vitamin D 31.9 6.6 - 49.9 ng/mL [facility] 25-Hydroxy [facility] Specimen Blood Narrative Performed At Effective 03/23/2017: Reference Range Change [facility] New: 6.6-49.9 ng/mL Previous: 13.0-47.8 ng/mL [facility] Recommended Vitamin D Target Range: 30. 0-40.0 ng/mL Serologist HUSSEIN Pal Performing Organization Address [facility] one Number [address] [facility] * Phosphorus (09/06/2019 4:11 AM CDT) Only the most recent of 15 results within the time period is included. Phosphorus 2.7 2.3 - 4.7 mg/dL [facility] Specimen Blood Narrative Performed At Serologist HUSSEIN Pal [facility] Performing Organization Address [facility] one Number [address] [facility] * Magnesium (09/06/2019 4:11 AM CDT) Only the most recent of 27 results within the time period is included. Magnesium 1.9 1.6 - 2.6 mg/dL [facility] Specimen Blood Narrative Performed At Serologist HUSSEIN Pal [facility] Performing Organization Address [facility] one Number [address] [facility] * CT abdomen/pelvis without iv contrast (09/05/2019 4:53 PM CDT) Specimen Narrative Performed At FINAL REPORT [facility] TECHNIQUE: CT of the abdomen and pelvis [...] or CT with and without intravenous contrast ([facility]) may be obtained in 12 months [...] Report Verified Date/Time: 09/05/2019 17:38:46 Reading Location: [facility] B1 C013Y CT Body Reading Room Procedure [...] Report Verified Date/Time: 09/05/2019 17:38:46 Reading Location: [facility] B1 C013Y CT Body Reading Room Performing Organization Address City/State/Zipcode Ph one Number GE [facility] * Urinalysis without Microscopic (09/05/2019 10:49 AM CDT) Color, UA Yellow [facility] Clarity, UA Clear [facility] Specific 1.015 1.001 - 1.035 [facility] [place], [facility] pH, UA 8.0 5.0 - 8.0 [facility] Protein, UA 20 mg/dL (A) Negative [facility] Glucose, UA Negative Negative [facility] Ketones, UA Negative Negative [facility] Bilirubin, UA Negative Negative [facility] Blood, UA Negative Negative [facility] Nitrite, UA Negative Negative [facility] Leukocytes, UA Negative Negative [facility] Urobilinogen, 2.0 (H) 0.2 - 1.0 mg/dL [facility] Specimen Source [facility] Specimen Urine Narrative Performed At Serologist ID - [auto] [facility] Serologist ID - tech [facility] Serologist ID - tech Performing Organization Address [facility] Ph one Number [place] [address] [place] [address] * Urea Nitrogen, random urine (09/05/2019 10:49 AM CDT) Urea Nitrogen, 601 mg/dL [facility] Specimen Urine Narrative Performed At Reference Range: No Normals [facility] Serologist ID - [facility] Performing Organization Address City/[facility]/[place] Ph one Number [place] [address] [place] [address] * Sodium, random urine (09/05/2019 10:49 AM CDT) Sodium Urine 106 meq/L [facility] Specimen Urine Narrative Performed At Reference Range: No Normals [facility] Serologist ID - [facility] Performing Organization Address City/[facility]/[place] Ph one Number [facility] [address] [place] [address] 0 [phone] [place] [address] * Creatinine, random urine (09/05/2019 10:49 AM CDT) Creatinine, Ur 102.9 mg/dL [facility] Specimen Urine Narrative Performed At Reference Range: No Normals [facility] Serologist ID - [facility] Performing Organization Address [facility] Ph one Number [facility] [address] [place] [address] 0 [phone] [place] [address] * Blood gas, venous (09/05/2019 6:10 AM CDT) Only the most recent of 5 results within the time period is included. pH, Evangelist 7.54 (H) 7.32 - 7.42 [facility] pCO2, Evangelist 45 41 - 51 mmHg [facility] pO2, Evangelist 49 (H) 25 - 40 mmHg [facility] O2 Sat, Evangelist 90.7 (H) 40.0 - 70.0 % [facility] HCO3, Evangelist 38 (H) 21 - 29 mmol/L [facility] Base Excess, 13.8 (H) -2.0 - 3.0 mmol/L [facility] Patient 35.6 C [facility] FIO2 21.0 % [facility] Specimen Blood - Entire left upper arm (body structure) Performing Organization Address [facility] Ph one Number [place] [address] [address] [phone] [place] [address] * Calcium, Ionized (09/04/2019 5:01 PM CDT) Only the most recent of 13 results within the time period is included. Calcium, Ion 1.11 (L) 1.12 - 1.27 mmol/L [facility] pH, Blood 7.47 [facility] Specimen Blood Narrative Performed At Check serum Ionized Calcium level after 4 hours after IV Calcium replacement. [facility] Performing Organization Address City/State/Zipcode Ph one Number [facility] [address] [place], [place] [address] [facility] * Potassium (09/04/2019 5:01 PM CDT) Only the most recent of 5 results within the time period is included. Potassium 4.1Comment: Specimen slightly 3.5 - 5.1 meq/L [facility] hemolyzed [facility] Specimen Blood Narrative Performed At Serologist HUSSEIN SPENCE [facility] Performing Organization Address [facility] Ph one Number [address] [facility] * ECG 12 lead (09/03/2019 6:10 AM CDT) Only the most recent of 6 results within the time period is included. Specimen Narrative Performed At Ventricular Rate 72 BPM GE MUSE Atrial Rate 72 BPM P-R Interval 162 ms QRS Duration 106 ms Q-T Interval 558 ms QTC Calculation(Bazett) 611 ms P [place] 76 degrees R [place] 46 degrees T [place] 83 degrees Normal sinus rhythm Possible Inferior [...] 558 ms QTC Calculation(Bazett) 611 ms P [place] 76 degrees R [place] 46 degrees T [place] 83 degrees Normal sinus rhythm Possible Inferior infarct , age undetermined ST & T wave abnormality, consider anterolateral ischemia Prolonged QT Abnormal ECG When compared with ECG of 31-AUG-2019 12:28, T wave inversion now evident in Inferior leads Confirmed by MD JOSEPH, ALAN Funk ([id number]) on 09/03/2019 6:45:13 AM Performing Organization Address City/[facility] Ph one Number YASHIRA KHAN * Blood gas, arterial (09/03/2019 5:00 AM CDT) Only the most recent of 13 results within the time period is included. pH, Arterial 7.53 (H) 7.35 - 7.45 [facility] pCO2, Arterial 51 (H) 35 - 45 mmHg [facility] pO2, Arterial 147 (H) 80 - 90 mmHg [facility] O2 Sat, 99.1 (H) 96.0 - 97.0 % [facility] HCO3, Arterial 42 (HH) 21 - 29 mmol/L [facility] Base Excess, 17.1 (H) -2.0 - 3.0 mmol/L [facility] Patient 37.0 C [facility] FIO2 35.0 % [facility] Specimen Blood, Arterial Performing Organization Address [facility] Ph one Number [place] [address] MEDICAL CENTER * Hepatic function panel (09/03/2019 5:00 AM CDT) Protein, Total 6.9 6.0 - 8.3 gm/dL [facility] Albumin 3.4 (L) 3.5 - 5.0 g/dL [facility] Total Bilirubin 0.8 0.2 - 1.2 mg/dL [facility] Bilirubin, 0.5 0.1 - 0.5 mg/dL [facility] Alkaline 84 40 - 150 U/L [facility] AST 33 5 - 34 U/L [facility] ALT 22 6 - 55 U/L [facility] Specimen Blood Narrative Performed At Serologist ID - PIAYA L [facility] Performing Organization Address City/State/Zipcode Ph one Number [facility] [address] [place], [place] [address] MEDICAL CENTER * CT abdomen/pelvis with IV contrast (08/31/2019 4:29 PM CDT) Specimen Narrative Performed At FINAL REPORT [facility] TECHNIQUE: CT of the chest, abdomen, an [...] Report Verified Date/Time: 08/31/2019 17:17:48 Reading Location: [facility] Reading Room - [place] [id number] Procedure Note Interface, External Ris In - [...] Report Verified Date/Time: 08/31/2019 17:17:48 Reading Location: [facility] Diagnostic Imaging Reading Room - [place] [id number] Performing Organization Address City/State/Zipcode Ph one Number [facility] * CT chest with IV contrast (08/31/2019 4:29 PM CDT) Specimen Narrative Performed At FINAL REPORT [facility] TECHNIQUE: CT of the chest, abdomen, an [...] Report Verified Date/Time: 08/31/2019 17:17:48 Reading Location: [facility] Reading Room - [place] [id number] Procedure Note Interface, External Ris In - [...] Report Verified Date/Time: 08/31/2019 17:17:48 Reading Location: [facility] Diagnostic Imaging Reading Room - [place] [address] Performing Organization Address [facility] Ph one Number GE [facility] * STOOL PATH CHARGE (08/30/2019 9:50 PM CDT) Pathogen exam Done [facility] Specimen Stool - Feces (substance) Performing Organization Address [facility] one Number [address] [facility] * Shiga Toxin Screen (08/30/2019 9:50 PM CDT) Shiga toxin 1 Not detected Not detected [facility] Shiga toxin 2 Not detected Not detected [facility] Specimen Stool - Feces (substance) Performing Organization Address [facility] one Number [address] [facility] * Stool culture + Shiga toxin (08/30/2019 9:50 PM CDT) Result No Salmonella, Shigella or [facility] Campylobacter [facility] Specimen Stool - Feces (substance) Performing Organization Address [facility]/Zipcode Ph one Number [place] [address] [facility] * Vancomycin level, trough (08/30/2019 10:29 AM CDT) Vancomycin Tr 12.4 10.0 - 20.0 ug/mL [facility] Specimen Blood Narrative Performed At Serologist ID - AAHAMID [facility] Performing Organization Address City/State/Zipcode Ph one Number [place] [address] [facility] * Manual Differential (08/30/2019 4:14 AM CDT) Only the most recent of 2 results within the time period is included. % Neutros 92 % [facility] % Lymphs 2 % [facility] % Monos 5 % [facility] % Eos 1 % [facility] # Neutros 15.82 (H) 1.78 - 5.38 K/ul [facility] # Lymphs 0.34 (L) 1.32 - 3.57 K/ul [facility] # Monos 0.86 (H) 0.30 - 0.82 K/uL [facility] # Eos 0.17 0.04 - 0.54 K/uL [facility] Total Counted 100 [facility] Platelet Normal [facility] Toxic Present [facility] Polychromasia 1+ few [facility] Hypochromia 1+ few [facility] Anisocytosis 1+ few [facility] Poikilocytes 1+ few [facility] Iselin Cells 1+ few [facility] Artifact Present [facility] Platelet Conc Adequate [facility] Specimen Blood Narrative Performed At Serologist ID - [id number] [facility] Serologist ID - Kristine Noble [facility] [facility] User comments: Slide comments: Performing Organization Address [facility] Ph one Number [address] [facility] * ECHOCARDIOGRAM REPORT - SCAN (08/29/2019 9:22 PM CDT) Narrative Performed At This result has an attachment that is n ot available. * Lactic acid, venous (08/29/2019 12:05 PM CDT) Only the most recent of 2 results within the time period is included. Lactate, Venous 1.28Comment: Specimen slightly 0.50 - 2.20 mm ol/L [facility] hemolyzed [facility] Specimen Blood Narrative Performed At Serologist ID - JOSE L M [facility] Performing Organization Address [facility] Ph one Number [address] [facility] * Blood Culture - Routine (Left Venipuncture) (08/29/2019 12:05 PM CDT) Only the most recent of 4 results within the time period is included. Result No growth in 5 days [facility] Specimen Blood - Entire left upper arm (body structure) Performing Organization Address [facility] one Number [address] [facility] * 2D Echo W/Doppler(CW/PW/Color) (08/29/2019 8:31 AM CDT) Ejection [facility] ECHO Fraction HEARTLAB [facility] Specimen Narrative Performed At Transthoracic Echocardiography Report (TTE) [facility] ECH O HEARTLAB Demographics [facility] Patient Name GRETTA ACUÑA Date o f Study 08/29/2019 Gender Male Visit Number [id number] Race Unknown Ro om Number [id number] Number Date of 1935 Refe rring Physician Belem Restrepo Age 83 year(s) Newspaper Delivery Counselor Lakhwinder Artis [facility] Radiology Supervisor Lizz Palumbo nterpreting Juni Moreno Physician Procedure Type of [...] of Study 08/29/2019 Gender Male Visit Number [id number] Race Unknown Room Number C824 Number Date of 1935 Referring Physician Belem Restrepo Age 83 year(s) Newspaper Delivery Counselor Lakhwinder Artis RDCS Radiology Supervisor Lizz Bah Interpreting Juni Moreno MD Procedure [...] LVOT CI: 2.14 l/min/m^2 Performing Organization Address [facility] Ph one Number SLEH ECHO HEARTLAB [facility] * Procalcitonin (08/29/2019 3:03 AM CDT) Pathologist [facility] Procalcitonin 0.72 (H) <0.05 ng/mL [facility] Specimen Blood Narrative Performed At SEPSIS RISK (ng/mL) [facility] Low: 0.05-0.50 [facility] Intermediate: 0.51-2.00 High: >=2.01 Performing Organization Address [facility] one Number [address] [facility] * POCT-HEMATOCRIT (08/29/2019 12:17 AM CDT) [facility] POC-Hematocrit 38 (L)Comment: : 40 - 50 % [facility] Serologist/Type Copy Examiner ID = [facility] [id number] for [facility] Specimen Blood Performing Organization Address [facility] one Number [address] [facility] * POCT-HEMOGLOBIN (08/29/2019 12:17 AM CDT) [facility] POC-Hemoglobin 12.9 (L)Comment: : TESTED AT 13.0 - 16.8 g/dL [address] [address]: Serologist/Type Copy Examiner ID [facility] = [id number] for [facility] Specimen Blood Performing Organization Address [facility] one Number [address] [facility] * POCT-GLUCOSE (08/29/2019 12:17 AM CDT) [facility] POC-Glucose 84Comment: : TESTED AT [facility] 70 - 110 mg/dL [address] [address]: Serologist/Type Copy Examiner [facility] = [id number] for PATTI YANGIA Specimen Blood Performing Organization Address [facility] Ph one Number [address] 0 [phone] [place] [address] * POC-Sodium (08/29/2019 12:17 AM CDT) [facility] POC-Sodium 129 (L)Comment: : TESTED AT 135 - 148 meq/L [address] [address]: Serologist/Type Copy Examiner ID [facility] = [id number] for PATTI YANGIA Specimen Blood Performing Organization Address [facility] one Number [address] 7[address] 0 [phone] [place] [address] * POC-Potassium (08/29/2019 12:17 AM CDT) [facility] POC-Potassium 3.6Comment: : TESTED AT [facility] 3.6 - 5.5 meq/L [address] [address]: Serologist/Type Copy Examiner [facility] = [id number] for PATTI YANGIA Specimen Blood Performing Organization Address [facility] one Number [address] 0 [phone] [place] [address] * POC-Calcium ionized (08/29/2019 12:17 AM CDT) [facility] POC-Calcium 1.12Comment: : TESTED AT [facility] 1.12 - 1.27 mmo l/L [facility] Ionized [address] [place] [address]: Serologist/Type Copy Examiner ID [facility] = [id number] for PATTI YANGIA Specimen Blood Performing Organization Address [facility] one Number [address]70 0 [phone] [place] [address] * POC-Blood gases, arterial (08/29/2019 12:17 AM CDT) Pathologist [facility] Temp. [facility] Celsius-POC [facility] FIO2-POC 28 [facility] pH, 7.470 (H) 7.350 - 7.450 [facility] Arterial-POC [facility] PCO2, 43.0 35.0 - 45.0 mm Hg [facility] Arterial-POC [facility] PO2, 108.0 (H) 80.0 - 90.0 mm Hg [facility] Arterial-POC [facility] SO2, 98.0 (H) 96.0 - 97.0 % [facility] Arterial-POC [facility] HCO3, 31.3 (H) 21.0 - 29.0 meq/L [facility] Arterilal-POC [facility] BE, 8.0 (H)Comment: : TESTED AT -2.0 - 3.0 meq/L [facility] ArterialPOC [address] [address]: Serologist/Type Copy Examiner ID [facility] = [id number] for RENAE YANG Specimen Blood Performing Organization Address City/State/[facility] Ph one Number [address] [facility] * ECHOCARDIOGRAM REPORT - SCAN (08/28/2019 9:20 PM CDT) Narrative Performed At This result has an attachment that is n ot available. * 2D Echo W/Doppler(CW/PW/Color) (08/28/2019 7:51 AM CDT) Ejection [facility] ECHO Fraction HEARTLAB [facility] Specimen Narrative Performed At Transthoracic Echocardiography Report (TTE) [facility] ECH O HEARTLAB Demographics [facility] Patient Name GRETTA ACUÑA ate of Study 08/28/2019 Gender Male Visit Number [id number] Race Unknown Room Number C830 Number Date of 1935 Referring Eduardo Shafer MD Physician Age 83 year(s) Newspaper Delivery Counselor Bakari Manuel Interpreting Toro Alonso, Physician Fellow [...] of Study 08/28/2019 Gender Male Visit Number [id number] Race Unknown Room Number C830 Number Date of 1935 Referring Eduardo Shafer MD Physician Age 83 year(s) Newspaper Delivery Counselor Bakari Manuel Interpreting Toro Alonso Physician Fellow [...] LVOT CI: 1.52 l/min/m^2 Performing Organization Address [facility] one Number DARLEEN ECHO HEARTLAB [facility] * Oxygen saturation, measured (08/25/2019 5:46 PM CDT) Only the most recent of 7 results within the time period is included. O2 Saturation 61.5 % [facility] (Measured) [facility] Specimen Blood Performing Organization Address [facility] one Number [place] [address] [address] [phone] [place] [address] * Lactic Acid, Arterial (08/24/2019 9:00 AM CDT) Only the most recent of 11 results within the time period is included. Lactate, Art 0.8 0.5 - 2.2 mmol/L [facility] Specimen Blood, Arterial Narrative Performed At Serologist ID - NTP [facility] Performing Organization Address [facility] one Number [place] [address] [address] [phone] [address] * ECHOCARDIOGRAM REPORT - SCAN (08/23/2019 9:12 PM CDT) Narrative Performed At This result has an attachment that is n ot available. * Potassium-Stat Lab (08/23/2019 12:09 PM CDT) Only the most recent of 3 results within the time period is included. Potassium 3.5 (L) 3.6 - 5.5 meq/L [facility] Specimen Blood, Arterial Performing Organization Address [facility] one Number [place] [address] [address] [phone] [place] [address] * Sodium Na-Stat Lab (08/23/2019 12:09 PM CDT) Only the most recent of 3 results within the time period is included. Sodium 135 135 - 148 meq/L [facility] Specimen Blood, Arterial Performing Organization Address [facility] one Number [address] 0 [phone] [place] [address] * Glucose-Stat Lab (08/23/2019 12:09 PM CDT) Only the most recent of 3 results within the time period is included. Glucose 180 (H) 70 - 110 mg/dL [facility] Specimen Blood, Arterial Performing Organization Address [facility] one Number [address] [facility] * HGB/HCT (H&H)-Stat Lab (08/23/2019 12:09 PM CDT) Only the most recent of 3 results within the time period is included. [facility] Hemoglobin 11.6 (L) 13.0 - 16.8 g/dL [facility] Hematocrit 34.0 (L) 40.0 - 50.0 % [facility] Specimen Blood, Arterial Performing Organization Address [facility] one Number [place] [address] 0 [phone] [place] [address] * POC-Glucose meter (08/22/2019 8:03 PM CDT) Only the most recent of 3 results within the time period is included. [facility] POC-Glucose 122 (H)Comment: : TESTED AT 70 - 110 mg/dL [facility] Meter [address] [address]: Serologist/Type Copy Examiner ID [facility] = [id number] for FLORIAN LUEK Specimen Blood Performing Organization Address [facility] one [place] [address] 0 [phone] [place] [address] * TRANSFUSION SERVICE REPORT - SCAN (08/22/2019 5:54 PM CDT) Narrative Performed At This result has an attachment that is n ot available. * Sputum Culture + Gram Stain (08/22/2019 5:32 PM CDT) Result No growth [facility] Gram Stain 3+ White blood cells seen [facility] Gram Stain 15-20 epithelial cells [facility] Gram Stain No organisms seen [facility] Specimen Sputum - Endotracheal tube, device (physical object) Performing Organization Address City/State/Zipcode Ph one Number [facility] [address] [place], [place] [address] [facility] * Transesophageal echo (08/22/2019 4:02 PM CDT) Ejection [facility] ECHO Fraction HEARTLAB [facility] Specimen Narrative Performed At Transesophageal Echocardiography Report (LAYNE) [facility] HEART[facility] Demographics [facility] Patient Name GRETTA ACUÑA Date of Study 08/22/2019 Gender Male Visit Number [id number] Race Unknown Room Number 2C22 Number Date of 1935 Referring Eduardo Shafer MD Physician Age 83 year(s) 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 Clinical History ARTHRITIS,A-FIB,CANCER,CAD,HTN,THYROID DISEASE,S/P PERICARDIAL WINDOW 08-21-2019 Height: 55 inches Weight: 45.36 kg (100 lbs) BSA: 1.31 m^2 BMI: 23.24 kg/m^2 HR: 75 bpm BP: 103/45 mmHg Summary Limited 2D exam and Doppler exam to add ress study indication. A uoeplrjb-uh-sqtkc circumferential per icardial effusion is present. The [...] of Study 08/22/2019 Gender Male Visit Number [id number] Race Unknown Room Number 2C22 Number Date of 1935 Referring Eduardo Shafer MD Physician Age 83 year(s) Newspaper Delivery Counselor Bakari Dean Interpreting Physician EDY Brown Fellow Italo Kuch[employer]hotla, FEL Procedure Type of Study LAYNE procedure:TRANSESOPHAGEAL ECHO Indications:Pericardial effusion. Clinical History ARTHRITIS,A-FIB,CANCER,CAD,HTN,THYROID DISEASE,S/P PERICARDIAL WINDOW 08-21-2019 Height: 55 inches Weight: 45.36 kg (100 lbs) BSA: 1.31 m^2 BMI: 23.24 kg/m^2 HR: 75 bpm BP: 103/45 mmHg Summary Limited 2D exam and Doppler exam to address study indication. A ssqbpiuy-ru-gnfsm circumferential pericardial effusion is present. The effusion [...] PV is not well visualized. Pericardium A jzexxzfv-ly-xlutt circumferential pericardial effusion is present. The effusion [...] pleural effusion is noted. Performing Organization Address [facility] one Number [facility] ECHO HEARTLAB [facility] * Strep pneumoniae antigen (08/22/2019 3:04 PM CDT) Strep Presumptive negative for Presumptive negative [facility] pneumoniae pneumococcal pneumonia - see for pneumococcal [facility] Antigen comment pneumonia - see [facility] comment, Presumptive negative for pneumococcal meningitis - see comment Specimen Urine - Urinary catheter, device (physical object) Narrative Performed At Presumptive negative for pneumococcal p neumonia, suggesting no current or recent [facility] pneumococcal infection. Infection due t o S. pneumoniae cannot be ruled out since [facility] the antigen present in the sample may b e below the detection limit of the test. Performing Organization Address [facility] one Number [address] [facility] * Legionella antigen, urine (08/22/2019 3:04 PM CDT) Legionella Negative - see commentComment: [facility] Urine Antigen Negative for L. pneumophila [facility] serogroup 1 antigen, MEDICAL [facility]ENTER suggesting no recent or current infection with this serogroup. Legionellosis cannot be ruled out since other serogroups and species may cause disease. Specimen Urine - Urinary catheter, device (physical object) Performing Organization Address [facility] one Number [address] [facility] * Cortisol (08/22/2019 10:12 AM CDT) Cortisol, Total 17.3 3.7 - 19.4 ug/dL [facility] Specimen Blood Narrative Performed At Serologist HUSSEIN - HUNTER Pal [facility] Performing Organization Address [facility] one Number [address] 0 [phone] [place] [address] * aPTT (08/22/2019 3:44 AM CDT) Only the most recent of 3 results within the time period is included. PTT 42.6 (H) 22.5 - 36.[address] [facility] Specimen Blood Performing Organization Address [facility] one Number [address] [facility] * Prothromin time/INR (08/22/2019 3:44 AM CDT) Only the most recent of 3 results within the time period is included. Protime 19.3 (H) 11.9 - 14.[address] [facility] INR 1.7 <=5.9 [facility] Specimen Blood Narrative Performed At Effective 11/08/2018: PT Reference Range Change [facility] New: 11.9-14.2 Previous: 11.7-14.7 [facility] MEDICAL [facility] TER RECOMMENDED COUMADIN/WARFARIN INR THERA PY RANGES STANDARD DOSE: 2.0-3.0 Includes: PROP HYLAXIS for venous thrombosis, systemic embolization; TREATMENT for venous thro mbosis and/or pulmonary embolus. HIGH RISK: Target INR is 2.5-3.5 for pa tients wiht mechanical heart valves. Performing Organization Address [facility] one Number [address] 0 [phone] [place] [address] * Fibrinogen (08/22/2019 3:44 AM CDT) Only the most recent of 3 results within the time period is included. Fibrinogen 644 (H) 225 - 434 mg/dl [facility] Specimen Blood Performing Organization Address [facility] one Number [facility] [address] [place] [address] [address] [facility] * PT/aPTT (08/22/2019 12:27 AM CDT) Protime 18.8 (H) 11.9 - 14.[address] [facility] INR 1.6 <=5.9 [facility] PTT 39.3 (H) 22.5 - 36.[address] [facility] Specimen Blood Narrative Performed At Effective 11/08/2018: PT Reference Range Change [facility] New: 11.9-14.2 Previous: 11.7-14.7 [facility] MEDICAL [place] TER RECOMMENDED COUMADIN/WARFARIN INR THERA PY RANGES STANDARD DOSE: 2.0-3.0 Includes: PROP HYLAXIS for venous thrombosis, systemic embolization; TREATMENT for venous thro mbosis and/or pulmonary embolus. HIGH RISK: Target INR is 2.5-3.5 for pa tients wiht mechanical heart valves. Performing Organization Address [facility] Ph one Number [place] [address] [facility] * Troponin I (08/21/2019 11:42 PM CDT) Troponin I 0.06 (H) 0.00 - 0.03 ng/mL [facility] Specimen Blood Narrative Performed At Troponin I (TnI) levels must be interpreted in the co ntext of the presenting [facility] symptoms and the clinical findings. Elevated TnI leve ls indicate myocardial [facility] damage, but are not specific for ischem ic heart disease. Elevated TnI levels are seen in patients with other cardiac con ditions (including myocarditis and congestive heart failure), and slight T nI elevations occur in patients with other conditions, including sepsis, jayne al failure, acidosis, acute neurological disease, and persistent tachyarrhythmia . Serologist ID - DB Performing Organization Address [facility] Ph one Number [place] [address] [facility] * Lactate dehydrogenase (LDH) (08/21/2019 11:42 PM CDT) LDH 265 (H) 125 - 220 U/L [facility] Specimen Blood Narrative Performed At Serologist ID - DB [facility] Performing Organization Address City/State/Zipcode Ph one Number [facility] [address] [place], [place] [address] [facility]ENTER * ECHOCARDIOGRAM REPORT [...] period is included. Cytology See Separate Report [facility] Specimen Body Fluid - Pericardial sac structure (body structure) Performing Organization Address City/State/Zipcode Ph one Number [facility] [address] [place], [place] [address] [facility] * Cytology (08/21/2019 8:15 PM CDT) Only the most recent of 2 results within the time period is included. Case Report Medical Cytology Report [facility] Case: [id number] [facility] Authorizing Provider: Eduardo Shafer, Collected: 08/21/20192014 Ordering Location: [facility] CV Recovery Room 2 Received: 08/22/2019 0913 Pathologist: Bryon Brown MD Specimen: Pericardial DIAGNOSIS PERICARDIAL FLUID (CYTOSPINS [facility] Electronically AND CELL BLOCK): [facility] signed by Stephanie, - NEGATIVE FOR MALIGNANCY [facility] MD Bryon on (SEE COMMENT) 08/23/2019 at 3:01 Signing Pathologist PM Direct Phone Line: [phone] COMMENT Cytospins and cell block [facility] sections show scattered [facility] mesothelial cells with [facility] reactive changes. Immunostains performed on cell block sections show the mesothelial cells are positive for calretinin, CK7 and CAM5.2, while MOC31 is predominantly negative. The findings are supportive of the above diagnosis. CPT Code(s) 23984, 28388, 49334, 33021 x 3 [facility] CLINICAL DATA Pericardial effusion, history [facility] of prostate cancer [facility] SPECIMEN SOURCE PERICARDIAL FLUID [facility] GROSS 300 mls bloody fluid; [address] [facility] DESCRIPTION cytospins, cell block [facility] Collected: [id number] [facility] Received: [id number] STATEMENT OF Satisfactory [facility] SPECIAL STUDIES The interpretation of this [facility] case included the use of [facility] immunohistochemistry or [facility] special stains. Control Slides Examined: In-house known positive controls were evaluated along with the test tissue. These control slides run alongside of the patients sample show appropriate staining. Internal positive and negative controls when available are evaluated Immunohistochemistry technical testing was performed at [facility], Pathology Laboratory where it was developed and [...] perform high complexity clinical laboratory testing. Gross [facility] ' assessment was [facility] BCM performed at [facility], [address] [place] [address], Technical [facility] component was [facility] BCM performed at [facility], [address] [place] [address], Professional [facility] component was [facility] BCM performed at Pathology, [address] [place] [id number], Specimen Body Fluid - Pericardial sac structure (body structure) Narrative Performed At This result has an attachment that is n ot available. Performing Organization Address [facility] Ph one Number [address] [facility] * AFB culture + smear (non-sputum) (08/21/2019 8:09 PM CDT) Only the most recent of 3 results within the time period is included. Result No acid-fast bacilli isolated [facility] in 42 days [facility] AFB Smear No acid fast bacilli seen [facility] [facility]ITAL Specimen Body Fluid - Pleural cavity structure (body structure) Performing Organization Address [facility] Ph one Number [address] [facility] * Anaerobic culture (08/21/2019 8:09 PM CDT) Only the most recent of 3 results within the time period is included. Result No anaerobes isolated [facility] Specimen Body Fluid - Pleural cavity structure (body structure) Performing Organization Address [facility] one Number [address] [facility] * Body fluid culture + gram stain (08/21/2019 8:09 PM CDT) Only the most recent of 2 results within the time period is included. Result No growth [facility] Gram Stain 2+ White blood cells seen [facility] Gram Stain No organisms seen [facility] Specimen Body Fluid - Pleural cavity structure (body structure) Performing Organization Address [facility] one Number [address] [facility] * Fungus culture + smear (08/21/2019 8:09 PM CDT) Only the most recent of 3 results within the time period is included. Result No fungus isolated in 28 days [facility] Fungus Smear No fungi seen [facility] Specimen Body Fluid - Pleural cavity structure (body structure) Performing Organization Address [facility] one Number [address] [facility] [place] * Surgically obtained culture + gram stain (08/21/2019 7:56 PM CDT) Result No growth [facility] Gram Stain <1+ White blood cells seen [facility] Gram Stain No organisms seen [facility] Specimen Tissue - Pericardial structure (body structure) Performing Organization Address [facility] one Number [address] [facility] [place] * Tissue Exam (08/21/2019 7:56 PM CDT) Case Report Surgical Pathology Report [facility] Kim [facility] Case: [id number] [facility]ENTER Authorizing Provider: Eduardo Shafer, Collected: 08/21/2019 Vladimir Ordering Location: [facility] CV Recovery Room 2 Received: 08/22/2019 0856 Pathologist: Miguel Angel Calix MD Specimen: Pericardium DIAGNOSIS PERICARDIUM, EXCISION [facility] nically - ACUTE AND CHRONIC [facility] signed by Fifi [facility] MD Miguel Angel on FIBRINOUS MATERIAL AND 08/27/2019 at 6:51 REACTIVE CHANGES PM Signing Pathologist Direct Phone Line: [phone] CPT Code(s) 96862 [facility] CLINICAL Pericardial effusion [facility] SPECIMEN SOURCE Pericardium [facility] GROSS Received fresh labeled with [facility] KAMRONMartin DESCRIPTION the patient's name, [facility] number and "pericardium" are MEDICAL CENTER two irregular pieces of red-pink soft tissue aggregating 2 x 1.5 x 0.2 cm. The larger tissue is quadrisected, and no gross lesions are identified. The specimen is entirely submitted in A1. CG/ew MICROSCOPIC Performed. [facility] Gross [facility] 'Martin assessment was [facility] BC performed at Pathology, [address] [place] [address] [facility] ' component was [facility] BCM performed at Pathology, [address] [place] [address], Professional [facility] ' component was [facility] BC performed at Pathology, [address] [place] [address], Specimen Tissue - Pericardial structure (body structure) Performing Organization Address City/State/Zipcode Ph one Number [address] [facility] * ABORH, manual (08/21/2019 5:31 PM CDT) ABO Grouping B [facility] Rh Factor POS [facility] Specimen Blood Performing Organization Address City/State/Zipcode Ph one Number [address] [address] [phone] [facility] * 2D Echo W/Doppler(CW/PW/Color) (08/21/2019 5:30 PM CDT) Ejection SLE ECHO Fraction [facility] Specimen Narrative Performed At Transthoracic Echocardiography Report (TTE) SLE ECH O [facility] Demographics [facility] Patient Name GRETTA ACUÑA Date of Study 08/21/2019 Gender Male Visit Number [id number] Race Unknown Room Number 2C36 Number Date [...] of Study 08/21/2019 Gender Male Visit Number [id number] Race Unknown Room Number 2C36 Number Date of 1935 Referring Physician Age 83 year(s) Newspaper Delivery Counselor Interpreting Physician EDY Fairchild Procedure Type of [...] 5:30 PM CDT) Vancomycin Rm 1.8 ug/mL [facility] Specimen Blood Narrative Performed At Reference Range: No Normals [facility] Serologist ID - BS [facility] Performing Organization Address City/State/Zipcode Ph one Number [place] [address] MEDICAL CENTER * Respiratory Panel [facility] (08/21/2019 5:27 PM CDT) Human Not detected Not detected, [facility] Metapneumovirus [facility] Rhinovirus Not detected Not detected, [facility] Influenza A Not detected Not detected, [facility] INFLUENZA A (NO [facility] SUBTYPE) [facility] Influenza A [facility] subtype H1 [facility] Influenza A [facility] Subtype H3 [facility] Influenza A [facility] Subtype H1-2009 [facility] Influenza B Not detected Not detected, [facility] Respiratory Not detected Not detected, [facility] Syncytial Virus [employer] [facility] Parainfluenza Not detected Not detected, [facility] Virus 1 [facility] Parainfluenza Not detected Not detected, [facility] Virus 2 [facility] Parainfluenza Not detected Not detected, [facility] virus 3 [facility] Parainfluenza Not detected Not detected, [facility] Virus 4 [facility] Adenovirus Not detected Not detected, [facility] [employer] [facility] Coronavirus Not detected Not detected, [facility] 229E [facility] [facility] Coronavirus Not detected Not detected, [facility] HKU1 [facility] [facility] Coronavirus Not detected Not detected, [facility] NL63 [facility] Coronavirus Not detected Not detected, [facility] OC43 [facility] Bordetella Not detected Not detected, [facility] Pertussis [facility] Chlamydophila Not detected Not detected, [facility] Pneumoniae [facility] Mycoplasma Not detected Not detected, [facility] Pneumoniae [facility] Specimen Nasopharyngeal - Nasopharyngeal wall structure (body structure) Narrative Performed At Other viruses and bacteria not targeted by this PCR p kyle cannot be excluded; [facility] therefore clinical correlation and follow up of serol ogy, culture results, and [facility] other molecular studies is required. Th e results are not intended to be used as the sole means for clinical diagnosis o r patient management decisions. This sample was tested at the [facility] [employer] [facility] using the [employer] FilmArray Respiratory Panel. It is FDA cleared and has been verified and approved by the [facility] Molecular Diagnos tics Laboratory for clinical use on nasopharyngeal swab specimens. The performance of the FilmArray RP has not been established in individuals who received influenza vaccine. Recent ad ministration of a nasal influenza vaccine may cause false positive results for In fluenza A and/or Influenza B. Performing Organization Address [facility] Ph one Number [place] [phone] [place] [address] * B-type Natriuretic Factor (BNP) (08/21/2019 5:27 PM CDT) BNP 384 (H) 0 - 100 pg/mL [facility] Specimen Blood Narrative Performed At Serologist ID - BS [facility] Performing Organization Address [facility] Ph one Number [place] [address] [facility] * Type and screen, automated (08/21/2019 4:40 PM CDT) ABO/RH B POSITIVE [facility] Ab Scrn NEGATIVE [facility] Specimen Blood Performing Organization Address City/[facility]/[employer] Ph one Number [facility] [address] [place] [address] [phone] [facility] * Platelet count (08/21/2019 4:40 PM CDT) Platelets 198 150 - 450 K/CU MM [facility] Specimen Blood Narrative Performed At Serologist ID - [id number] [facility] Performing Organization Address City/State/Zipcode Ph one Number [facility] [address] [place], [place] [address] [facility] after 04/19/2019 Insurance Type Payer Benefit Subscriber ID Effective Phone Address Plan / Dates Group Maps Contracted [employer] TEX[employer] [id number] 2019-P HMO ALL resent [phone] Advance Directives For more information, please contact: [phone] Date Inactivated Comments Code Status Date Activated [...]
--- OUTSIDE RECORDS SUMMARY | 2020-04-19 00:45 | XMS REPORT | Continuity of Care Document ---
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 TABLET DAILY DIRECTED. [facility] Aspirin EC 325 MG Oral Tablet Delayed Release Aspirin EC 325 MG Oral Tablet Delayed Release 2017-05-25 00:00:00 Yes GAY KAY M.D. TAKE 1 TABLET BY MOUTH EVERY DAY [facility] Tamsulosin HCl - 0.4 MG Oral Capsule Tamsulosin HCl - 0.4 MG Oral Capsule 2013-10-17 00:00:00 Yes JACOB DOWELL M.D. TAKE ONE CAPSULE BY MOUTH EVERY DAY WITH DINNER. needs office visit [facility] Centrum Silver TABS 2013-10-08 14:37:32 [...] Yes QD TAKE 1 TABLET DAILY DIRECTED. [facility] Lisinopril 20 MG Oral Tablet [...] ; Start Date: 07/14/2012; End Date: ([facility]) [facility] Lis[facility] 40 MG Oral Tablet 2012-07-14 06:00:00 Yes ; Start Date: 07/14/2012; End Date: (Active) [facility] Atorvastatin Calcium 20 MG Oral Tablet Atorvastatin Calcium 20 MG Oral Tablet 2012-07-14 00:00:00 Yes GAY KAY M.D. TAKE 1 TABLET BY MOUTH EVERYDAY AT BEDTIME [facility] Carvedilol 3.125 MG Oral Tablet 2012-07-06 06:00:00 Yes ; Start Date: 07/06/2012 (Active) [facility] Stacey james Amiodarone Hcl 200 Mg Tablet Amiodarone Hcl 200 Mg Tablet Y es [address] [facility] Aspirin (Aspirin Enteric Coated) 325 Mg Tabec Aspirin (Aspirin Enteric Coated) 325 Mg Tabec Yes 325 Daily [facility] Atorvastatin Calcium 20 Mg Tablet Atorvastatin Calcium 20 Mg Tablet Yes 20 Bedtime [facility] Carvedilol 3.125 Mg Tablet Carvedilol 3.125 Mg Tablet Yes 6.25 Twice A Day [facility] Cyanocobalamin (Vitamin B-12) (Vitamin B-12) 1,000 Mcg Tablet.er Cyanocobalamin (Vitamin B-12) (Vitamin B-12) 1,000 Mcg Tablet.er Yes 1000 Daily [facility] Famotidine 20 Mg Tab Famotidine 20 Mg Tab Yes 20 Twice A Day [facility] Ferrous Sulfate (Iron) 325 Mg Tablet Ferrous Sulfate (Iron) 325 Mg Tablet Yes 325 Daily [facility] Folic Acid/Cyanocob/Pyridoxine (Nephro-Raji Tablet) 1 Ea Tab Folic Acid/Cyanocob/Pyridoxine (Nephro-Raji Tablet) 1 Ea Tab Yes 1 Daily [facility] Levothyroxine Sodium 112 Mcg Tablet Levothyroxine Sodium 112 Mcg Tabl et Yes 175 Daily@0600 [facility] Lisinopril 2.5 Mg Tablet Lisinopril 2.5 Mg Tablet Yes 2.5 Daily [facility] Mirabegron (Myrbetriq) 50 Mg Tab.er.24h Mirabegron (Myrbetri q) 50 Mg Tab.er.24h Yes 50 Daily [facility] Mu-Vits-Min Th/Lycopene/Lutein (Centrum Silver Tablet) 1 Each Tablet Mu-Vits-Min Th/Lycopene/Lutein (Centrum Silver Tablet) [address] Tablet Yes Daily [facility] Nitroglycerin 0.4 Mg Tab.subl Nitroglycerin 0.4 Mg Tab.subl Yes .4 Every 5 Minutes as needed for Chest Pain [facility] Sulfasalazine 500 Mg Tab Sulfasalazine 500 Mg Tab Yes 500 Three Times A Day [facility] Tamsulosin Hcl (Flomax*) 0.4 Mg Cap Tamsulosin Hcl (Flomax*) 0.4 Mg C ap Yes .4 Twice A Day [facility] Vit A/Vit C/Vit E/Zinc/Copper (Preservision Areds Soft gel) 1 Each Capsule Vit A/Vit C/Vit E/Zinc/Copper (Preservision Areds Softgel) 1 Each Capsule Yes Twice A Day [facility] Testosterone Cypionate SOLN Testosterone Cypionate SOLN Yes 2000mg 1 injection every 10 days [facility] Centrum Silver TABS Centrum Silver TABS Yes 1 QD TAKE 1 TABLET DAILY. [facility] Amiodarone HCl - 100 MG Oral Tablet Amiodarone HCl - 100 MG Oral Tabl et Yes 1 QD TAKE 1 TABLET DAILY. [facility] Carvedilol 3.125 MG Oral Tablet Carvedilol 3.125 MG Oral Tablet Yes Q0.5D TAKE 1 TABLET TWICE DAILY WITH MEALS. [facility] Amiodarone Hcl (Pacerone) 400 Mg Tablet, 200 Mg Oral A miodarone Hcl (Pacerone) 400 Mg Tablet, 200 Mg Oral 2016-03-16 00:00:00 No 200 Daily [facility] Aspirin (Asa) 81 Mg Tab, 81 Mg Oral Aspirin (Asa) 81 Mg Tab, 81 Mg Oral 2016-03-16 00:00:00 No 81 Daily [facility] Atorvastatin Calcium (Lipitor) 20 Mg Tablet, 20 Mg Ora l Atorvastatin Calcium (Lipitor) 20 Mg Tablet, 20 Mg Oral 2016-03-16 00:00:00 No 20 Bedtime [facility] Carvedilol 3.125 Mg Tablet, 6.25 Mg Oral Carvedilol 3. 125 Mg Tablet, 6.25 Mg Oral 2016-03-16 00:00:00 No 6.25 Twice A Day [facility] Clopidogrel Bisulfate (Plavix) 75 Mg Tablet, 75 Mg Ora l Clopidogrel Bisulfate (Plavix) 75 Mg Tablet, 75 Mg Oral 2016-03-16 00:00:00 No 75 Daily [facility] Cyanocobalamin (Vitamin B-12) 1,000 Mcg Lozenge, 1000 Mcg Oral Cyanocobalamin (Vitamin B-12) 1,000 Mcg Lozenge, 1000 Mcg Oral 2016-03-16 00:00:00 N o 1000 Daily [facility] Famotidine 20 Mg Tab, 20 Mg Oral Famotidine 20 Mg Tab, 20 Mg Ora l 2016-03-16 00:00:00 No 20 Twice A Day [facility] Ferrous Sulfate 140 Mg Tablet.er, 65 Mg Oral Ferrous S ulfate 140 Mg Tablet.er, 65 Mg Oral 2016-03-16 00:00:00 No 65 Daily [facility] Folic Acid 1 Mg Tablet, 1 Mg Oral Folic Acid 1 Mg Tablet, 1 Mg O ral 2016-03-16 00:00:00 No 1 Daily [facility] Gabapentin 100 Mg Capsule, 100 Mg Oral Gabapentin 100 Mg Capsule , 100 Mg Oral 2016-03-16 00:00:00 No 100 Every 12 Hours [facility] Levothyroxine Sodium (Synthroid) 100 Mcg Tablet, 100 M cg Oral Levothyroxine Sodium (Synthroid) 100 Mcg Tablet, 100 Mcg Oral 2016-03-16 00:00:00 N o 100 Daily [facility] Lisinopril 20 Mg Tablet, 2.5 Mg Oral Lisinopril 20 Mg Tablet, 2. 5 Mg Oral 2016-03-16 00:00:00 No 2.5 Daily [facility] Multivitamin (Multi-Vitamin Daily) 1 Each Tablet, 1 Ta b Oral Multivitamin (Multi-Vitamin Daily) 1 Each Tablet, 1 Tab Oral 2016-03-16 00:00:00 No 1 [facility] Oxybutynin Chloride 5 Mg Tablet, 5 Mg Oral Oxybutynin Chloride 5 Mg Tablet, 5 Mg Oral 2016-03-16 00:00:00 No 5 Twice A Day [facility] Sulfasalazine (Sulfasalazine Dr) 500 Mg Tablet.dr, 500 Mg Oral Sulfasalazine (Sulfasalazine Dr) 500 Mg Tablet.dr, 500 Mg Oral 2016-03-16 00:00:00 No 500 Three Times A Day [facility] Tamsulosin Hcl (Flomax*) 0.4 Mg Cap, 0.4 Mg Oral Tamsu losin Hcl (Flomax*) 0.4 Mg Cap, 0.4 Mg Oral 2016-03-16 00:00:00 No .4 Twice A Day [facility] Doxazosin Mesylate (Cardura) 2 Mg Tablet, 5 Mg Oral Do xazosin Mesylate (Cardura) 2 Mg Tablet, 5 Mg Oral 2016-03-15 00:00:00 No 5 Twice A Day [facility] Doxazosin Mesylate (Cardura) 8 Mg Tablet, 8 Mg Oral Do xazosin Mesylate (Cardura) 8 Mg Tablet, 8 Mg Oral 2013-11-28 00:00:00 No 8 Bedtime [facility] Immunizations Ordered Immunization Name Filled Immunization Name Date Status Comments Source Pneumococcal polysaccharide vaccine, 23 valent 2020-03 14:10:00 Completed [facility] Fluzone High-Dose 0.5 ML Intramuscular Suspension Prefilled Syringe 2020-03-13 14:09:00 Completed [facility] Prevnar 13 Intramuscular Suspension 2019-04-23 16:00:00 Co mpleted [facility] Fluzone High-Dose 0.5 ML Intramuscular Suspension Prefilled Syringe 2019-04-23 15:57:00 Completed [facility] Fluzone High-Dose 0.5 ML Intramuscular Suspension Prefilled Syringe 2018-02-20 10:28:00 Completed [facility] Fluzone Quadrivalent 0.5 ML Intramuscular Suspension Prefill ed Syringe 2017-02-28 11:17:00 Completed [facility] Fluzone High-Dose SUSP 2016-03-26 14:39:00 Completed [facility] Prevnar 13 Intramuscular Suspension 2015-03-05 16:04:00 Co mpleted [facility] Fluzone Quadrivalent 0.5 ML Intramuscular Suspension 2015-03-05 16:03:00 Completed [facility] Fluarix Quadrivalent 0.5 ML SUSP 2014-03-05 12:17:00 Compl eted [facility] Fluzone INJ 2013-02-13 10:53:00 [facility]pleted [facility] Pneumo 2010-03-25 00[facility]00:00 [facility] H1N1 Influenza Inj 2009-04-18 00:00:00 Completed [facility] Influenza 2008-04-09 00:00:00 Completed [facility] Tdap 2008-01-24 00:00:00 Completed [facility] Vital Signs Vital Name Observation Time Observation Value Comments Source Systolic blood pressure 2020-03-13 09:49:00 143 mm[Hg] [facility] Diastolic blood pressure 2020-03-13 09:49:00 76 mm[Hg] [facility] Body temperature 2020-03-13 09:49:00 98 [degF] Method: Temporal [facility] Heart Rate 2020-03-13 09:49:00 73 /min [facility] Body height 2020-03-13 09:49:00 72 [in_us] [facility] Respiratory rate 2020-03-13 09:49:00 16 /min [facility] Systolic blood pressure 2020-02-11 10:26:00 109 mm[Hg] Loca tion: LUE; Position: Sitting [facility] Diastolic blood pressure 2020-02-11 10:26:00 58 mm[Hg] Loc ation: LUE; Position: Sitting [facility] Body height 2020-02-11 10:26:00 72 [in_us] [facility] Weight 2020-02-11 10:26:00 191 [lb_av] [facility] Body mass index (BMI) [Ratio] 2020-02-11 10:26:00 25.9 kg/m2 [facility] Heart Rate 2020-02-11 10:26:00 71 /min [facility] Body temperature 2020-02-11 10:26:00 97.1 [degF] [facility] Systolic blood pressure 2020-02-04 10:11:00 156 mm[Hg] Loca tion: LUE; Position: Sitting [facility] Diastolic blood pressure 2020-02-04 10:11:00 74 mm[Hg] Loc ation: LUE; Position: Sitting [facility] Body height 2020-02-04 10:11:00 72 [in_us] [facility] Weight 2020-02-04 10:11:00 191.5 [lb_av] [facility] Body mass index (BMI) [Ratio] 2020-02-04 10:11:00 25.97 kg/m2 [facility] Body temperature 2020-02-04 10:11:00 97.9 [degF] Method: Temporal [facility] Heart Rate 2020-02-04 10:11:00 48 /min [facility] Respiratory rate 2020-02-04 10:11:00 16 /min [facility] Systolic blood pressure 2020-01-19 10:42:00 86 mm[Hg] Loca tion: RUE; Position: Sitting [facility] Diastolic blood pressure 2020-01-19 10:42:00 20 mm[Hg] Loc ation: RUE; Position: Sitting [facility] O2 SAT 2020-01-19 10:42:00 97 % Source: RA [facility] Respiratory rate 2020-01-19 10:42:00 24 /min Quality: Normal U [facility] Body temperature 2020-01-19 10:42:00 100 [degF] Method: Temporal [facility] Heart Rate 2020-01-19 10:42:00 120 /min Location: Apical; Un [facility] Body height 2020-01-15 10:50:00 73 [in_us] [facility] Weight 2020-01-15 10:50:00 220 [lb_av] [facility] Body mass index (BMI) [Ratio] 2020-01-15 10:50:00 29.03 kg/m2 [facility] Systolic blood pressure 2019-11-02 08:07:00 153 mm[Hg] Loca tion: LUE; Position: Sitting [facility] Diastolic blood pressure 2019-11-02 08:07:00 72 mm[Hg] Loc ation: LUE; Position: Sitting [facility] Body height 2019-11-02 08:07:00 70 [in_us] [facility] Weight 2019-11-02 08:07:00 165 [lb_av] [facility] Body mass index (BMI) [Ratio] 2019-11-02 08:07:00 23.68 kg/m2 [facility] Body temperature 2019-11-02 08:07:00 98.1 [degF] Method: [facility] Respiratory rate 2019-11-02 08:07:00 16 /min [facility] Heart Rate 2019-11-02 08:07:00 57 /min [facility] Systolic blood pressure 2019-10-30 09:31:00 103 mm[Hg] Loca tion: LUE; Position: Sitting [facility] Diastolic blood pressure 2019-10-30 09:31:00 61 mm[Hg] Loc ation: LUE; Position: Sitting [facility] Body height 2019-10-30 09:31:00 70 [in_us] [facility] Body temperature 2019-10-30 09:31:00 98.6 [degF] Method: Temporal [facility] Heart Rate 2019-10-30 09:31:00 76 /min [facility] Respiratory rate 2019-10-30 09:31:00 16 /min [facility] Systolic blood pressure 2019-09-25 09:34:00 98 mm[Hg] Loca tion: LUE; Position: Sitting [facility] Diastolic blood pressure 2019-09-25 09:34:00 60 mm[Hg] Loc ation: LUE; Position: Sitting [facility] Body height 2019-09-25 09:34:00 70 [in_us] [facility] Weight 2019-09-25 09:34:00 165 [lb_av] [facility] Body mass index (BMI) [Ratio] 2019-09-25 09:34:00 23.68 kg/m2 [facility] Body temperature 2019-09-25 09:34:00 96.8 [degF] Method: [facility] Heart Rate 2019-09-25 09:34:00 75 /min [facility] Respiratory rate 2019-09-25 09:34:00 16 /min [facility] Systolic blood pressure 2019-09-14 08:46:00 106 mm[Hg] [facility] Diastolic blood pressure 2019-09-14 08:46:00 57 mm[Hg] [facility] Heart rate 2019-09-14 08:46:00 79 /min [facility] Body temperature 2019-09-14 08:46:00 36.28 Adelina [facility] Respiratory rate 2019-09-14 08:46:00 18 /min [facility] Oxygen saturation in Arterial blood by Pulse oximetry 09-13 08:46:00 96 /min [facility] Body weight 2019-09-09 16:00:00 78.291 kg [facility] BMI 2019-09-09 16:00:00 22.39 kg/m2 [facility] Body height 2019-09-07 11:49:00 187 cm [facility] BP Systolic 2019-06-21 09:59:00 123 mm[Hg] Location: CHAIM; Positi on: Sitting [facility] BP Diastolic 2019-06-21 09:59:00 63 mm[Hg] Location: [place]; Positi on: Sitting [facility] Height 2019-06-21 09:59:00 70 [in_us] [facility] Temperature 2019-06-21 09:59:00 97.6 [degF] Method: Temporal [facility] Heart Rate 2019-06-21 09:59:00 46 /min [facility] Respiration Rate 2019-06-21 09:59:00 16 /min [facility] O2 SAT 2019-05-12 09:44:00 99 % Source: [facility] BP Systolic 2019-05-12 09:28:00 136 mm[Hg] Location: CHAIM; Positi on: Sitting [facility] BP Diastolic 2019-05-12 09:28:00 78 mm[Hg] Location: ABDI Positi on: Sitting [facility] Height 2019-05-12 09:28:00 70 [in_us] [facility] Weight 2019-05-12 09:28:00 192 [lb_av] [facility] Body Mass Index Calculated 2019-05-12 09:28:00 27.55 kg/m2 [facility] Temperature 2019-05-12 09:28:00 98.2 [degF] Method: Temporal [facility] Heart Rate 2019-05-12 09:28:00 95 /min [facility] Respiration Rate 2019-05-12 09:28:00 16 /min [facility] BP Systolic 2019-04-25 10:01:00 121 mm[Hg] Location: LUE; Positi on: Sitting [facility] BP Diastolic 2019-04-25 10:01:00 71 mm[Hg] Location: [place]; Positi on: Sitting [facility] Height 2019-04-25 10:01:00 70 [in_us] [facility] Weight 2019-04-25 10:01:00 179 [lb_av] [facility] Body Mass Index Calculated 2019-04-25 10:01:00 25.68 kg/m2 [facility] Heart Rate 2019-04-25 10:01:00 69 /min [facility] Respiration Rate 2019-04-25 10:01:00 16 /min [facility] BP Systolic 2019-04-23 13:30:00 101 mm[Hg] Location: [place]; Positi on: Sitting [facility] BP Diastolic 2019-04-23 13:30:00 53 mm[Hg] Location: [place]; Pos[place] on: Sitting [facility] Height 2019-04-23 13:30:00 70 [in_us] [facility] Weight 2019-04-23 13:30:00 179.1 [lb_av] [facility] Body Mass Index Calculated 2019-04-23 13:30:00 25.7 kg/m2 [facility] Temperature 2019-04-23 13:30:00 97.3 [degF] Method: Temporal [facility] Heart Rate 2019-04-23 13:30:00 74 /min [facility] Procedures Procedure Date / Time Performed Performing Clinician Sour e [QL] CULTURE, URINE, ROUTINE 2020-03-13 00:00:00 [facility] [QL] URINALYSIS, COMPLETE W/REFLEX TO CULTURE 2020-03-12 00:00:0 0 [facility] [U] XRAY FEMUR 2 VWS RIGHT [id number] 2020-03-04 00:00:00 [facility] [N] 2D Echo complete, with Doppler [id number] 2020-02-11 00:00:00 [facility] [QL] THYROID PANEL 2020-02-04 00:00:00 [facility] [QL] CMP W/EGFR 2020-01-14 00:00:00 [facility] [QL] MAGNESIUM 2020-01-14 00:00:00 [place] [facility] [QL] PHOSPHATE ( PHOSPHORUS) 2020-01-14 00:00:00 [facility] [QL] PTH, INTACT (WITHOUT CALCIUM) 2020-01-14 00:00:00 [facility] [QL] VITAMIN D, 25-HYDROXY, LC/MS/MS 2020-01-14 00:00:00 [facility] MA Bone Density Scan [id number] 2020-01-14 00:00[facility]00 [facility] XRAY FEMUR 2 VWS RIGHT [id number] 2019-12-31 00:00:00 [facility] Post Op Promis 29 Survey 2019-12-25 00:00:00 [facility] [QL] TSH, 3RD GENERATION W/REFLEX TO FT4 2019-11-09 00:00:00 [facility] EKG (In Office) 2019-11-02 00:00:00 [place] [facility] [QL] PROTHROMBIN W/INR + PARTIAL THROMBOPLASTIN TIMES 2019-11-02 00:00:00 [facility] [U] XRAY KNEE 1 OR 2 VWS RIGHT [id number] 2019-10-31 00:00:00 [facility] [Q] LIPID PANEL WITH REFLEX TO DIRECT LDL 2019-10-30 00:00:00 [facility] [QL] CMP W/EGFR 2019-10-30 00:00:00 [facility] [QL] CREATINE KINASE, TOTAL 2019-10-30 00:00:00 [facility] [QL] TSH, 3RD GENERATION W/REFLEX TO FT4 2019-10-30 00:00:00 [facility] [N] 2D Echo complete, with Doppler [id number] 2019-10-01 00:00:00 [facility] [N] Nuclear Test-Adenosine Stress Perfusion 2019-10-01 00:00:00 [facility] RHYTHM STRIP - SCAN 2019-09-12 11:52:11 Provider, Default [facility] REPORT OF PROCEDURE - ENDOSCOPY SCAN 2019-09-10 11:10:44 Pro vider, Default Scanning [facility] RHYTHM STRIP - SCAN 2019-09-10 11:10:41 Provider, Default [facility] BASIC METABOLIC PANEL (7) 2019-09-10 04:06:00 [facility] CBC (HEMOGRAM ONLY) 2019-09-10 04:06:00 BishopClby [facility] COMPREHENSIVE METABOLIC PANEL 2019-09-08 04:01:00 Jason Alas [facility] CBC W/PLT COUNT & AUTO DIFFERENTIAL 2019-09-08 04:00:00 Miguel Angel Alas [facility] ECG 12-LEAD 2019-09-07 13:47:40 Unknown, Hl7 Doctor [facility] ECG 12-LEAD 2019-09-07 13:46:49 Unknown, Hl7 [facility] TSH/FREE T4 IF INDICATED 2019-09-06 08:55:00 Warren [facility] XR CHEST 1 VIEW PORTABLE/BEDSIDE 2019-09-06 04:26:00 Daphne Vitale [facility] BASIC METABOLIC PANEL (7) 2019-09-06 04:11:00 Warren [facility]ton [facility] MAGNESIUM 2019-09-06 04:11:00 Warren [facility] PHOSPHORUS 2019-09-06 04:11:00 Warren [facility] VITAMIN D, 25-HYDROXY 2019-09-06 04:11:[address] [facility] [address] ABDOMEN/PELVIS WITHOUT IV CONTRAST 2019-09-05 16:53:00 Warren [facility] URINALYSIS WITHOUT MICROSCOPIC 2019-09-05 10:49:00 Warren [facility] SODIUM, RANDOM URINE 2019-09-05 10:49:00 Warren [facility] CREATININE, RANDOM URINE 2019-09-05 10:49:00 Warren [facility] UREA NITROGEN, RANDOM URINE 2019-09-05 10:49:00 Warren [facility] BLOOD GAS, VENOUS 2019-09-05 06:10:00 Marcio Mari [facility] BASIC METABOLIC PANEL (7) 2019-09-05 05:01:00 Daphne Vitale [facility] MAGNESIUM 2019-09-05 05:01:00 Daphne Vitale [facility] XR CHEST 1 VIEW PORTABLE/BEDSIDE 2019-09-05 04:36[facility]00 [facility]-09-04 17:01:00 Belem Restrepo [facility] POTASSIUM 2019-09-04 17:01:00 Belem Restrepo [facility] CALCIUM, IONIZED 2019-09-04 17:01:00 Uk [facility] BASIC METABOLIC PANEL (7) 2019-09-04 04:13:00 Belem Restrepo [facility] CBC W/PLT COUNT & AUTO DIFFERENTIAL 2019-09-04 04:13:00 Lisa Warren [facility] XR CHEST 1 VIEW PORTABLE/BEDSIDE 2019-09-04 01:44:00 Moisés Torres [facility] ECG 12-LEAD 2019-09-03 06:10:58 Unknown, Hl7 Doctor [facility] CBC (HEMOGRAM ONLY) 2019-09-03 05:00:00 Ukgerry, [facility] PHOSPHORUS 2019-09-03 05:00:00 Uk, [facility] HEPATIC FUNCTION PANEL 2019-09-03 05:00:00 Abimael Hickey [facility] BASIC METABOLIC PANEL (7) 2019-09-03 05:00:00 Belem Restrepo [facility] BLOOD GAS, ARTERIAL 2019-09-03 05:00:00 Belem Restrepo [facility] MAGNESIUM 2019-09-03 05:00:00 Belem Restrepo [facility] XR CHEST 1 VIEW PORTABLE/BEDSIDE 2019-09-03 04:53:00 Moisés Torres A [facility] BLOOD GAS, ARTERIAL 2019-09-02 17:06:00 Amber Sargent [facility] BASIC METABOLIC PANEL (7) 2019-09-02 17:06:00 Corazon Torres [facility], [facility] MAGNESIUM 2019-09-02 17:06:00 Corazon Torres [facility] PHOSPHORUS 2019-09-02 17:06:00 Corazon Torres [facility] XR CHEST 1 VIEW PORTABLE/BEDSIDE 2019-09-02 09:20:00 Moisés Torres [facility] BLOOD GAS, VENOUS 2019-09-02 03:42:00 Corazon Catesyamile [facility] BASIC METABOLIC PANEL (7) 2019-09-02 03:42:00 [place], [facility] MAGNESIUM 2019-09-02 03:42:00 [place], [facility] CALCIUM, IONIZED 2019-09-02 03:42:00 Uk, [facility] CBC (HEMOGRAM ONLY) 2019-09-02 03:42:00 [place], [facility] PHOSPHORUS 2019-09-02 03:42:00 [place], [facility] BLOOD GAS, VENOUS 2019-09-01 19:38:00 Corazon Torres [facility] BLOOD GAS, VENOUS 2019-09-01 17:45:00 Corazon Catesyamile [facility] MAGNESIUM 2019-09-01 16:46:00 Belem Restrepo [facility] POTASSIUM 2019-09-01 16:46:00 Belem Restrepo [facility] CALCIUM, IONIZED 2019-09-01 16:46:00 [place], [facility] CALCIUM, IONIZED 2019-09-01 11:32:00 [place], [facility] MAGNESIUM 2019-09-01 11:30:00 Belem Restrepo [facility] POTASSIUM 2019-09-01 11:30:00 Belem Restrepo [facility] BASIC METABOLIC PANEL (7) 2019-09-01 05:01:00 Uk, [facility] MAGNESIUM 2019-09-01 05:01:00 Uk, [facility] CALCIUM, IONIZED 2019-09-01 05:01:00 [facility], [facility] CBC (HEMOGRAM ONLY) 2019-09-01 05:01:00 Uk, [facility] PHOSPHORUS 2019-09-01 05:01:00 Uk, [facility] XR CHEST 1 VIEW PORTABLE/BEDSIDE 2019-09-01 01:47:00 Iam [facility] BASIC METABOLIC PANEL (7) 2019-08-31 22:41:00 , [facility] MAGNESIUM 2019-08-31 22:41:00 [facility], [facility] CALCIUM, IONIZED 2019-08-31 22:41:00 [facility], [facility] CT CHEST WITH IV CONTRAST 2019-08-31 16:29:00 Pierre Chavez [facility] CT ABDOMEN/PELVIS WITH IV CONTRAST 2019-08-31 16:29:00 Pierre Chavez [facility] MAGNESIUM 2019-08-31 13:02:00 Belem Restrepo [facility] POTASSIUM 2019-08-31 13:02:00 Belem Restrepo [facility] ECG 12-LEAD 2019-08-31 12:28:02 Unknown, Hl7 [facility] BASIC METABOLIC PANEL (7) 2019-08-31 04:43:00 Iginiamrlisa [facility] MAGNESIUM 2019-08-31 04:43:00 IginiamrDaphne toledo [facility] PHOSPHORUS 2019-08-31 04:43:00 IginiamrDemond toledoLos [facility] CBC W/PLT COUNT & AUTO DIFFERENTIAL 2019-08-31 04:43:00 Iginiamr e, Daphne [facility] XR CHEST 1 VIEW PORTABLE/BEDSIDE 2019-08-31 03:22:00 Iam Daphne [facility] STOOL CULTURE + SHIGA TOXIN 2019-08-30 21:50:00 KimberlyJoeleribertolisa Jose [facility] SHIGA TOXIN SCREEN 2019-08-30 21:50:00 Cornelius Harris [facility] STOOL PATH CHARGE 2019-08-30 21:50:00 Joel Harrisgalisa [facility] VANCOMYCIN LEVEL, TROUGH 2019-08-30 10:29:00 Abimael Hickey [facility] BASIC METABOLIC PANEL (7) 2019-08-30 04:14:00 Iam [facility] MAGNESIUM 2019-08-30 04:14:00 Iam [facility] PHOSPHORUS 2019-08-30 04:14:00 Iginiaroxanna [facility] CBC W/PLT COUNT & AUTO DIFFERENTIAL 2019-08-30 04:14:00 Luis toledo [facility] (CELLAVISION MANUAL DIFF) 2019-08-30 04:14:00 Iam [facility] XR CHEST 1 VIEW PORTABLE/BEDSIDE 2019-08-30 00:52:00 Iam [facility] ECHOCARDIOGRAM REPORT - SCAN 2019-08-29 21:22:12 Asha Siu lt [facility] BLOOD CULTURE 2019-08-29 12:05:00 Amber Sargent [facility] LACTIC ACID, VENOUS 2019-08-29 12:05:00 Amber Sargent [facility] 2D ECHO W/ DOPPLER (CW/PW/COLOR) 2019-08-29 08:31:32 Harvey Restrepo [facility] PROCALCITONIN 2019-08-29 03:03:00 Belem Restrepo [facility] XR CHEST 1 VIEW PORTABLE/BEDSIDE 2019-08-29 01:05:00 JavierEduardo rosenberg on [employer] [facility] BASIC METABOLIC PANEL (7) 2019-08-29 00:33:00 LuislisaDaphne [facility] MAGNESIUM 2019-08-29 00:33:00 Davidroclisa Daphne [facility] PHOSPHORUS 2019-08-29 00:33:00 Daphne Vitale [facility] CBC W/PLT COUNT & AUTO DIFFERENTIAL 2019-08-29 00:33:00 Luis toledo [facility] (CELLAVISION MANUAL DIFF) 2019-08-29 00:33:00 Iam Daphne [facility] POCT-BLOOD GASES, ARTERIAL 2019-08-29 00:17:00 Jamey Gong [facility] POCT-SODIUM 2019-08-29 00:17:00 [facility]OT[facility] 2019-08-29 00:17:00 KristinunjamesntaDudleyColin [facility] POCT-HEMOGLOBIN 2019-08-29 00:17:00 Parkntyamile[facility] PO[facility]-HEMATOCRIT 2019-08-29 00:17:00 ParkntDudley [facility] POCT-CALCIUM IONIZED 2019-08-29 00:17:00 Colin Gong C [facility] POCT-GLUCOSE 2019-08-29 00:17:00 Parknta, Colin [facility] LACTIC ACID, VENOUS 2019-08-29 00:16:00 Colin Gong [facility] ECHOCARDIOGRAM REPORT - SCAN 2019-08-28 21:20:45 Asha Siu lt [facility] 2D ECHO W/ DOPPLER (CW/PW/COLOR) 2019-08-28 07:51:08 Khadijah Sargent ra [facility] XR CHEST 1 VIEW PORTABLE/BEDSIDE 2019-08-28 03:32:00 Harvey Restrepo [facility] MAGNESIUM 2019-08-28 02:36:00 Corazon Torres [facility] BASIC METABOLIC PANEL (7) 2019-08-28 02:36:00 Maverick Singh [facility] CBC W/PLT COUNT & AUTO DIFFERENTIAL 2019-08-28 02:36:00 Haddad-Gom ez, [facility] XR CHEST 1 VIEW PORTABLE/BEDSIDE 2019-08-27 13:33:00 Khadijah Sargent ra [facility] MAGNESIUM 2019-08-27 13:02:00 AlinoGillian Maryan [facility] MAGNESIUM 2019-08-27 03:46:00 Corazon Torres [facility] BASIC METABOLIC PANEL (7) 2019-08-27 03:46:00 Maverick Singh [facility] CBC W/PLT COUNT & AUTO DIFFERENTIAL 2019-08-27 03:46:00 Haddad-Gom ez, [facility] POTASSIUM 2019-08-26 17:51:00 Alino, Gillian Maryan [facility] MAGNESIUM 2019-08-26 17:51:00 [facility] 2019-08-26 17:49:00 Alino, [facility] MET[facility]OLIC PANEL (7) 2019-08-26 05:22:00 Jay Escalona [facility] MAGNESIUM 2019-08-26 05:22:00 Corazon Torres [facility] PHOSPHORUS 2019-08-26 05:22:00 Finesse, Gillian Maryan [facility] CBC W/PLT COUNT & AUTO DIFFERENTIAL 2019-08-26 05:22:00 Boo-Yamilet ez, [facility] OXYGEN SATURATION, MEASURED 2019-08-25 17:46:00 Thomas Escalona [facility] BASIC METABOLIC PANEL (7) 2019-08-25 17:46:00 Jay Escalona [facility] MAGNESIUM 2019-08-25 17:46:00 James Emiliano [facility] OXYGEN SATURATION, MEASURED 2019-08-25 09:28:00 Thomas Escalona [facility] MAGNESIUM 2019-08-25 05:15:00 Corazon Torres [facility] BASIC METABOLIC PANEL (7) 2019-08-25 05:15:00 Jay Escalona [facility] PHOSPHORUS 2019-08-25 05:15:00 Alino, [facility] W/[facility]T COUNT & AUTO DIFFERENTIAL 2019-08-25 05:15:00 Corazon Torres [facility] BASIC METABOLIC PANEL (7) 2019-08-24 23:30:00 Jay Escalona [facility] MAGNESIUM 2019-08-24 23:30:00 Alino, [facility] PHOS[facility]US 2019-08-24 23:30:00 Alino, [facility] W/PLT COUNT & AUTO DIFFERENTIAL 2019-08-24 23:30:00 Corazon Torres [facility] OXYGEN SATURATION, MEASURED 2019-08-24 17:18:00 Thomas Escalona Cassie [facility] CBC W/PLT COUNT & AUTO DIFFERENTIAL 2019-08-24 17:18:00 Corazon Torres [facility] BASIC METABOLIC PANEL (7) 2019-08-24 17:17:00 Jay Escalona [facility] LACTIC ACID, ARTERIAL 2019-08-24 09:00:00 Corazon Torres [facility] BLOOD GAS, ARTERIAL 2019-08-24 09:00:00 Lizbet Escalona [facility] BASIC METABOLIC PANEL (7) 2019-08-24 09:00:00 Jay Escalona [facility] CBC W/PLT COUNT & AUTO DIFFERENTIAL 2019-08-24 09:00:00 Corazon Torres [facility] XR CHEST 1 VIEW PORTABLE/BEDSIDE 2019-08-24 02:15:00 Karsten Harris [facility] LACTIC ACID, ARTERIAL 2019-08-24 01:02:00 Corazon Torres [facility] BLOOD GAS, ARTERIAL 2019-08-24 01:02:00 Lizbet Escalona [facility] BASIC METABOLIC PANEL (7) 2019-08-24 01:02:00 Jay Escalona [facility] OXYGEN SATURATION, MEASURED 2019-08-24 01:02:00 Thomas Escalona Cassie [facility] MAGNESIUM 2019-08-24 01:02:00 Corazon Torres [facility] CBC W/PLT COUNT & AUTO DIFFERENTIAL 2019-08-24 01:02:00 Corazon Torres [facility] ECHOCARDIOGRAM REPORT - SCAN 2019-08-23 21:12:15 ProviderAsha lt Enzo [facility] OXYGEN SATURATION, MEASURED 2019-08-23 17:24:00 Corazon Torres [facility] BASIC METABOLIC PANEL (7) 2019-08-23 17:24:00 Corazon Torres [facility] CBC W/PLT COUNT & AUTO DIFFERENTIAL 2019-08-23 15:16:00 Corazon Torres [facility] BLOOD GAS, ARTERIAL 2019-08-23 15:15:00 Corazon Torres [facility] LACTIC ACID, ARTERIAL 2019-08-23 15:15:00 Corazon Torres [facility] CALCIUM, IONIZED 2019-08-23 12:09:00 KimberlyCornelius [facility] SODIUM NA-STAT LAB 2019-08-23 12:09:00 KimberlyCornelius [facility] POTASSIUM-STAT LAB 2019-08-23 12:09:00 [facility]Cornelius [facility] 2019-08-23 12:09:00 KimberlyCornelius [facility] HGB/HCT (H&H) - STAT LAB 2019-08-23 12:09:00 Cornelius Harris Polyca rp [facility] BLOOD GAS, ARTERIAL 2019-08-23 12:09:00 Corazon Torres [facility] LACTIC ACID, ARTERIAL 2019-08-23 12:09:00 Corazon Torres [facility] BASIC METABOLIC PANEL (7) 2019-08-23 12:09:00 Corazon Torres [facility] OXYGEN SATURATION, MEASURED 2019-08-23 12:08:00 Corazno Torres [facility] OXYGEN SATURATION, MEASURED 2019-08-23 10:16:00 Corazon Torres [facility] ECG 12-LEAD 2019-08-23 09:29:15 Unknown, Hl7 Doctor [facility] CBC W/PLT COUNT & AUTO DIFFERENTIAL 2019-08-23 07:58:00 Corazon Torres [facility] LACTIC ACID, ARTERIAL 2019-08-23 03:54:00 Corazon Torres [facility] BLOOD GAS, ARTERIAL 2019-08-23 03:54:00 Kimberly, Tanwie Polycarp [facility] BASIC METABOLIC PANEL (7) 2019-08-23 03:54:00 Kimberly, Tanwie Polyc gunner [facility] MAGNESIUM 2019-08-23 03:54:00 Kimberly, Tanwie Polycarp [facility] PHOSPHORUS 2019-08-23 03:54:00 Kimberly, Tanwie Polycarp [facility] CALCIUM, IONIZED 2019-08-23 03:54:00 Kimberly, Tanwie Polycarp [facility] CBC W/PLT COUNT & AUTO DIFFERENTIAL 2019-08-23 03:54:00 Corazon Torres [facility] XR CHEST 1 VIEW PORTABLE/BEDSIDE 2019-08-23 03:17:00 Kimberly, Tanwi e Polycarp [facility] LACTIC ACID, ARTERIAL 2019-08-22 20:12:00 Kimberly, Tanwie Polycarp [facility] CALCIUM, IONIZED 2019-08-22 20:08:00 Cornelius Harris [facility] BLOOD GAS, ARTERIAL 2019-08-22 20:08:00 Cornelius Harris [facility] SODIUM NA-STAT LAB 2019-08-22 20:08:00 Cornelius Harris [facility] POTASSIUM-STAT LAB 2019-08-22 20:08:00 Cornelius Harris [facility] GLUCOSE-STAT LAB 2019-08-22 20:08:00 Joel Harrisgalisa Cole [facility] HGB/HCT (H&H) - STAT LAB 2019-08-22 20:08:00 Cornelius Harris [facility] POCT-GLUCOSE METER 2019-08-22 20:03:00 Eduardo Shafer [facility] POCT-GLUCOSE METER 2019-08-22 18:19:00 Eduardo Shafer [facility] LACTIC ACID, ARTERIAL 2019-08-22 18:12:00 Corazon Torres [facility] BLOOD GAS, ARTERIAL 2019-08-22 18:12:00 LuisHeber [facility] TRANSFUSION SERVICE REPORT - SCAN 2019-08-22 17:54:35 Provid er, Default Scanning [facility] SPUTUM CULTURE + GRAM STAIN 2019-08-22 17:32:00 Guy Bennett [facility] LIMITED 2D ECHOCARDIOGRAM 2019-08-22 16:14:54 Jose L Justice inlisa [facility] TRANSESOPHAGEAL ECHO 2019-08-22 16:02:04 Corazon Torres [facility] LEGIONELLA URINE ANTIGEN 2019-08-22 15:04:00 Guy Bennett [facility] CBC W/PLT COUNT & AUTO DIFFERENTIAL 2019-08-22 15:04:00 Corazon Torres [facility] POCT-GLUCOSE METER 2019-08-22 13:37:00 Eduardo Shafer [facility] LACTIC ACID, ARTERIAL 2019-08-22 13:34:00 Miguel AngelCorazon alatorre [facility] CORTISOL 2019-08-22 10:12:00 Heber Smith [facility] XR CHEST 1 VIEW PORTABLE/BEDSIDE 2019-08-22 10:06:00 Leelee Alvarado [facility] ECG 12-LEAD 2019-08-22 06:01:50 Unknown, Hl7 Doctor [facility] BASIC METABOLIC PANEL (7) 2019-08-22 03:44:00 Kimberly, Tanwie Polyc gunner [facility] MAGNESIUM 2019-08-22 03:44:00 Kimberly, Tanwie Polycarp [facility] PHOSPHORUS 2019-08-22 03:44:00 Kimberly, Tanwie Polycarp [facility] CALCIUM, IONIZED 2019-08-22 03:44:00 Kimberly, Tanwie Polycarp [facility] BLOOD GAS, ARTERIAL 2019-08-22 03:44:00 Kimberly, Tanwie Polycarp [facility] PROTHROMBIN TIME/INR 2019-08-22 03:44:00 Kimberly, Tanwie Polycarp [facility] APTT 2019-08-22 03:44:00 Kimberly, Tanwie Polycarp [facility] FIBRINOGEN 2019-08-22 03:44:00 Kimberly, Tanwie Polycarp [facility] CBC W/PLT COUNT & AUTO DIFFERENTIAL 2019-08-22 03:44:00 KimberlyIsaac Polycarp [facility] XR CHEST 1 VIEW PORTABLE/BEDSIDE 2019-08-22 00:57:00 Kimberly, Tanwi e Polycarp [facility] CALCIUM, IONIZED 2019-08-22 00:28:00 Kimberly, Tanwie Polycarp [facility] PT/APTT 2019-08-22 00:27:00 Kimberly, Tanwie Polycarp [facility] LACTIC ACID, ARTERIAL 2019-08-22 00:27:00 Kimberly, Tanwie Polycarp [facility] BLOOD GAS, ARTERIAL 2019-08-22 00:27:00 Kimberly, Tanwie Polycarp [facility] SODIUM NA-STAT LAB 2019-08-22 00:27:00 Cornelius Harris Polycarp [facility] POTASSIUM-STAT LAB 2019-08-22 00:27:00 Cornelius Harris Polycarp [facility] GLUCOSE-STAT LAB 2019-08-22 00:27:[address] [facility] HGB/HCT (H&H) - STAT LAB 2019-08-22 00:27:00 Cornelius Harris rp [facility] CBC W/PLT COUNT & AUTO DIFFERENTIAL 2019-08-22 00:27:00 Isaac [facility] TROPONIN I 2019-08-21 23:42:00 Kimberly Joeleribertolisa Polycarp [facility] LACTATE DEHYDROGENASE (LDH) 2019-08-21 23:42:00 Kimberly Joeljerri Jose [facility] BASIC METABOLIC PANEL (7) 2019-08-21 23:42:00 KimberlyCornelius ovalle Polyc gunner [facility] XR CHEST 1 VIEW PORTABLE/BEDSIDE 2019-08-21 23:07:00 Kimberly Joeleriberto lisa Polycarp [facility] BLOOD GAS, ARTERIAL 2019-08-21 22:26:00 Cornelius Harris Polycarp [facility] XR CHEST 1 VIEW PORTABLE/BEDSIDE 2019-08-21 21:17:00 Bartolo Harris lisa Polycarp [facility] ECHOCARDIOGRAM REPORT - SCAN 2019-08-21 21:14:46 Asha Siu lt Scanning [facility] PROTHROMBIN TIME/INR 2019-08-21 20:52:00 Cornelius Harrisarp [facility] APTT 2019-08-21 20:52:00 Cornelius Harris Polycarp [facility] FIBRINOGEN 2019-08-21 20:52:00 Bartolo Harrise Polycarp [facility] BASIC METABOLIC PANEL (7) 2019-08-21 20:50:00 Bartolo Harrise Polyc gunner [facility] MAGNESIUM 2019-08-21 20:50:00 Kimberly, [facility] PHOSPHORUS 2019-08-21 20:50:00 Kimberly, [facility] LACTIC ACID, ARTERIAL 2019-08-21 20:50:00 Kimberly, [facility] CALCIUM, IONIZED 2019-08-21 20:50:00 Kimberly, Joelgalisa [facility] BLOOD GAS, ARTERIAL 2019-08-21 20:50:00 Kimberly, Joelgalisa [facility] CBC W/PLT COUNT & AUTO DIFFERENTIAL 2019-08-21 20:50:00 KimberlyIsaac [facility] ANESTHESIA LAYNE 2019-08-21 20:17:34 Katerine Leroy [facility] CYTOLOGY REQUEST 2019-08-21 20:15:31 Soni [facility] CYTOLOGY 2019-08-21 20:15:00 Soni [facility] AFB CULTURE + SMEAR (NON-SPUTUM) 2019-08-21 20:09:09 Arvind Shafer lisa [facility] FUNGUS CULTURE + SMEAR 2019-08-21 20:09:09 Soni Eduardo [facility] ANAEROBIC CULTURE 2019-08-21 20:09:09 Soni [facility] BODY FLUID CULTURE + GRAM STAIN 2019-08-21 20:09:09 Sybil Shafer [facility] [employer] CULTURE + SMEAR (NON-SPUTUM) 2019-08-21 20:00:03 Arvind Shafer lisa [facility] ANAEROBIC CULTURE 2019-08-21 20:00:03 Soni [facility] FUNGUS CULTURE + SMEAR 2019-08-21 20:00:03 Soni [facility] BODY FLUID CULTURE + GRAM STAIN 2019-08-21 20:00:03 Sybil Shafer [facility] [employer] CULTURE + SMEAR (NON-SPUTUM) 2019-08-21 19:56:52 Soni Arvind sonulisa Sebastian [facility] ANAEROBIC CULTURE 2019-08-21 19:56:52 Eduardo Shafer [facility] FUNGUS CULTURE + SMEAR 2019-08-21 19:56:52 Eduardo Shafer ios [facility] SURGICALLY OBTAINED CULTURE + GRAM STAIN 2019-08-21 19:56:52 Eduardo Shafer Sebastian [facility] TISSUE EXAM 2019-08-21 19:56:00 Eduardo Shafer Sebastian [facility] CYTOLOGY REQUEST 2019-08-21 19:49:56 Eduardo Shafer [facility] CYTOLOGY 2019-08-21 19:49:00 Eduardo Shafer [facility] BLOOD CULTURE 2019-08-21 18:35:00 Corazon Torres [facility] THORACOSCOPY (VATS),CREATION OF PERICARDIAL WINDOW 2019-08-12 0 18:33:00 Eduardo Shafer Sebastian [facility] CREATION,PERICARDIAL WINDOW 2019-08-21 18:33:00 Eduardo Shafer [facility] LAYNE 2019-08-21 18:33:00 Eduardo Shafer [facility] INSERTION,CHEST TUBE 2019-08-21 18:33:00 Eduardo Shafer Sebastian [facility] BLOOD CULTURE 2019-08-21 17:47:00 Corazon Torres [facility] ABORH, MANUAL 2019-08-21 17:31:00 Nella Saunders [facility] 2D ECHO W/ DOPPLER (CW/PW/COLOR) 2019-08-21 17:30:20 Moisés Torres [facility] VANCOMYCIN LEVEL, RANDOM 2019-08-21 17:30:00 Corazon Torres [facility] RESPIRATORY PANEL SLHS 2019-08-21 17:27:00 Corazon Torres [facility] B-TYPE NATRIURETIC FACTOR (BNP) 2019-08-21 17:27:00 Nito Torres [facility] ECG 12-LEAD 2019-08-21 17:02:17 Unknown, [facility] ECG 12-LEAD 2019-08-21 16:58:55 Unknown, [facility] LACTIC ACID, ARTERIAL 2019-08-21 16:40:00 Corazon Torres [facility] COMPREHENSIVE METABOLIC PANEL 2019-08-21 16:40:00 BoCorazon alatorre [facility] PROTHROMBIN TIME/INR 2019-08-21 16:40:00 BoCorazon alatorre [facility] APTT 2019-08-21 16:40:00 BoCorazon alatorre [facility] FIBRINOGEN 2019-08-21 16:40:00 Corazon Torres [facility] BLOOD GAS, VENOUS 2019-08-21 16:40:00 Corazon Torres [facility] MAGNESIUM 2019-08-21 16:40:00 BoCorazon alatorre [facility] PHOSPHORUS 2019-08-21 16:40:00 Corazon Torres [facility] TYPE AND SCREEN, AUTOMATED 2019-08-21 16:40:00 Corazon Torres [facility] CBC W/PLT COUNT & AUTO DIFFERENTIAL 2019-08-21 16:40:00 Corazon Torres [facility] Computed tomography of chest with contrast 2019-08-14 00:00:00 CECI SEPULVEDA [facility] [U] XRAY FEMUR 2 VWS RIGHT [id number] 2019-08-03 00:00:00 [facility] [U] XRAY FEMUR 2 VWS RIGHT [id number] 2019-06-26 00:00:00 [facility] [U] XRAY FEMUR 2 VWS RIGHT [id number] 2019-06-08 00:00:00 [facility] XRAY Ribs bilateral with PA chest [id number] 2019-05-12 00:00:00 [facility] [U] XRAY BONE LENGTH STUDY-SCANOGRAM [id number] 2019-04-24 00:00:00 [facility] [U] XRAY KNEE 1 OR 2 VWS RIGHT [id number] 2019-04-24 00:00:00 [facility] Post Op Promis 29 Survey 2019-03-07 00:00:00 [facility] History of Hernia Repair [facility] History of Lower Back Surgery [facility] History of Ankle Surgery [facility] History of Cath Placement Of Stent 1 [facility] Plan of Care Planned Activity Planned Date Details Comments Source Future Scheduled Test 2020-04-12 00:00:00 [N] 2D Echo comple te, with Doppler 64523 [code = [N] 2D Echo complete, with Doppler 58449] [facility] Future Scheduled Test 2020-02-12 00:00:00 INFLUENZA VACCINE (#1) [code = INFLUENZA VACCINE (#1)] [facility] Future Scheduled Test 2020-01-12 00:00:00 [QL] TSH, 3RD GENE RATION W/REFLEX TO FT4 [code = [QL] TSH, 3RD GENERATION W/REFLEX TO FT4] [facility] Diagnostic Test Pending 2019-10-01 00:00:00 [N] 2D Echo comp lete, with Doppler 12823 [code = [N] 2D Echo complete, with Doppler 24661] [facility] Diagnostic Test Pending 2019-10-01 00:00:00 [N] Nuclear Test -Adenosine Stress Perfusion [code = [N] Nuclear Test-Adenosine Stress Perfusion] [facility] Diagnostic Test Pending 2019-08-15 00:00:00 [U] XRAY FEMUR 2 VWS RIGHT 02611 [code = 73300] [facility] Future Scheduled Test 2019-06-13 00:00:00 Medicare IPPE (WEL COME TO MEDICARE) [code = Medicare IPPE (WELCOME TO MEDICARE)] [facility] Future Scheduled Test 2013-10-08 14:37:32 Plan of Care [code = 1877 6-5] [facility] Scheduled Test 2013-10-05 13:48:15 Plan of Care [code = 1877 6-5] [facility] Scheduled Test 2013-08-30 20:33:44 Plan of Care [code = 1877 6-5] [facility] Scheduled Test 2013-08-24 21:21:29 Plan of Care [code = 1877 6-5] [facility] Scheduled Test 2013-07-06 18:46:34 Plan of Care [code = 1877 6-5] [facility] Scheduled Test 2013-05-22 21:34:17 Plan of Care [code = 1877 6-5] [facility] Scheduled Test 2013-05-17 15:37:13 Plan of Care [code = 1877 6-5] [facility] Scheduled Test 2013-03-02 22:46:27 Plan of Care [code = 1877 6-5] [facility] Scheduled Test 2013-02-14 15:49:06 Plan of Care [code = 1877 6-5] [facility] Appointment 2020-05-30 10:15:00 Tatyana PONCE, [facility] Future Appointment 2020-05-12 10:00:00 Tatyana RASHID, [facility] Future Appointment 2020-05-07 10:00:00 [facility] Encounters Start Date/Time End Date/Time Encounter Type Admission Type Attendi [facility] Care Department Encounter ID Source 2019-02-19 08:16:00 Inpatient MHSE MHSE [id number] [facility] 2020-04-17 14:00:00 2020-04-17 14:00:00 Appointment; TAMAR MARIANO P.A. CAMPOS, BERTHA, P.A. [facility], [address] [id number] [facility] 2020-03-13 09:30:00 2020-03-13 09:30:00 Appointment; TAMAR MARIANO P.A. CAMPOS, BERTHA, P.AYajaira [facility], [address] [id number] [facility] 2020-03-07 09:30:00 2020-03-07 09:30:00 Appointment; KRIS BLANC M.D. HUANG, EDDIE, M.D. [facility] Orthopedics [facility] [id number] [facility] 2020-02-11 10:00:00 2020-02-11 10:00:00 Appointment; JESS KAY M.D. DHOBLE, ABHIJEET, M.D. [facility], [facility] [id number] [facility] 2020-02-05 12:00:00 2020-02-05 12:00:00 Appointment; JAREN PETERS AP RN LEO, MAURA, APRN [facility] Orthopedics [facility] [id number] [facility] 2020-02-04 10:00:00 2020-02-04 10:00:00 Appointment; TAMAR MARIANO P.A. CAMPOS, BERTHA, P.A. [facility], [address] [id number] [facility] 2020-01-19 10:15:00 2020-01-19 10:15:00 Appointment; DOMINIQUE FLORIAN A PRN ELLIS, MARK, APRN [facility] [id number] [facility] 2020-01-19 10:00:00 2020-01-19 10:00:00 Appointment; DOMINIQUE FLORIAN A PRN ELLIS, MARK, APRN [facility], [address] [id number] [facility] 2020-01-14 10:00:00 2020-01-14 10:00:00 Appointment; JAREN PETERS AP RN LEO, MAURA, APRN [facility] Orthopedics [facility] [id number] [facility] 2020-01-02 09:45:00 2020-01-02 09:45:00 Appointment; KRIS BLANC M.D. HUANG, EDDIE, M.D. [facility] [id number] [facility] 2019-12-31 13:45:00 2019-12-31 13:45:00 Appointment; KRIS BLANC M.D. HUANG, EDDIE, M.D. [facility] Orthopedics [facility] [id number] [facility] 2019-12-12 08:40:00 2019-12-12 08:40:00 Appointment; JESS KAY M.D. DHOBLE, ABHIJEET, M.D. [facility] [id number] [facility] 2019-12-10 08:45:00 2019-12-10 08:45:00 Appointment; [facility] N [facility], NUCLEAR [facility] [id number] [facility] 2019-12-05 09:30:00 2019-12-05 09:30:00 Appointment; KRIS BLANC M.D. HUANG, EDDIE, M.D. [facility] [id number] [facility] 2019-11-20 09:00:00 2019-11-20 09:00:00 Appointment; KRIS BLANC M.D. HUANG, EDDIE, M.D. [facility] [id number] [facility] 2019-11-20 05:46:00 2019-11-20 05:46:00 Outpatient MHSE MHSE [id number] [facility] 2019-11-02 08:00:00 2019-11-02 08:00:00 Appointment; TAMAR MARIANO P.A. CAMPOS, BERTHA, PYajairaAYajaira [facility], [facility] 2 [id number] [facility] 2019-10-31 13:45:00 2019-10-31 13:45:00 Appointment; KRIS BLANC M.D. HUANG, EDDIE, M.D. [facility] [id number] [facility] 2019-10-30 09:15:00 2019-10-30 09:15:00 Appointment; TAMAR MARIANO P.A. CAMPOS, BERTHA, P.AYajaira [facility], [facility] 2 [id number] [facility] 2019-10-30 09:15:00 2019-10-30 09:15:00 Appointment; TAMAR MARIANO P.A. CAMPOS, BERTHA, P.AYajaira [facility] [id number] [facility] 2019-10-01 10:20:00 2019-10-01 10:20:00 Appointment; JESS KAY M.D. DHOBLE, ABHIJEET, M.D. [facility] Multispecialty [facility] [id number] [facility] 2019-09-25 09:00:00 2019-09-25 09:00:00 Appointment; MOHEYTIMOTHY REYES M.D. MOHEYUDDIN, AMINA, M.D. [facility] [id number] [facility] 2019-08-14 09:27:00 2019-08-16 11:15:00 Discharged Inpatient [address] [facility] [id number] [facility] 2019-08-15 11:30:00 2019-08-15 11:30:00 Appointment; BARBARA HENDERSON M.D. CHOO, ANDREW, M.D. [facility] Orthopedics Tra[facility] [id number] [facility] 2019-07-04 11:30:00 2019-07-04 11:30:00 Appointment; BARBARA HENDERSON M.D. CHOO, ANDREW, M.D. [facility] Orthopedic Trauma [facility] [id number] [facility] 2019-06-21 10:00:00 2019-06-21 10:00:00 Appointment; TAMAR MARIANO P.A. CAMPOS, BERTHA, P.A. [facility], [address] [id number] [facility] 2019-06-08 11:00:00 2019-06-08 11:00:00 Appointment; BARBARA HENDERSON M.D. CHOO, ANDREW, M.D. [facility], [address] [id number] [facility] 2019-05-31 10:00:00 2019-05-31 10:00:00 Appointment; TAMAR MARIANO P.A. CAMPOS, BERTHA, P.A. [facility] [id number] [facility] 2019-05-25 13:00:00 2019-05-25 13:00:00 Appointment; BARBARA HENDERSON M.D. CHOO, ANDREW, M.D. [facility] UTP [id number] [facility] 2019-05-24 17:27:00 2019-05-24 13:01:00 Inpatient E [facility] [id number] [facility] 2019-05-23 11:07:00 2019-05-23 15:37:00 Departed Emergency Room [address] [facility] [id number] [facility] 2019-05-12 07:30:00 2019-05-12 07:30:00 Appointment; DAISY MARCOS A PRN SAXE, KAILA, APRN [facility] [id number] [facility] 2019-04-25 14:30:00 2019-04-25 14:30:00 Appointment; KRIS BLANC M.D. HUANG, EDDIE, M.D. [facility] Orthopedics [facility] [id number] [facility] 2019-04-25 08:40:00 2019-04-25 08:40:00 Appointment; JESS KAY M.D. DHOBLE, ABHIJEET, M.D. [facility], [address] [id number] [facility] 2019-04-23 13:30:00 2019-04-23 13:30:00 Appointment; TAMAR MARIANO P.A. CAMPOS, BERTHA, P.A. [facility], [address] [id number] [facility] 2019-03-14 12:14:00 2019-03-14 08:21:00 Inpatient E [facility] MED [id number] [facility] 2019-03-10 10:13:00 2019-03-10 10:13:00 Emergency E MHSE MHSE [id number] [facility] 2019-03-10 09:30:00 2019-03-10 09:30:00 Appointment; SID SCHMITT P.A. SPOONER, JOSEPH, P.A. [facility] [id number] [facility] 2019-02-19 09:00:00 2019-02-19 09:00:00 Appointment; KRIS BLANC M.D. HUANG, EDDIE, M.D. [facility] [id number] [facility] 2019-02-14 09:30:00 2019-02-14 09:30:00 Appointment; KRIS BLANC M.D. HUANG, EDDIE, M.D. [facility] [id number] [facility] 2019-01-18 09:30:00 2019-01-18 09:30:00 Appointment; KRIS BLANC M.D. HUANG, EDDIE M.D. [facility] UTP [id number] [facility] 2019-01-08 11:00:00 2019-01-08 11:00:00 Appointment; TAMAR MARIANO P.A. CAMPOS, BERTHA, P.AYajaira [facility]TP [id number] [facility] 2018-12-28 10:00:00 2018-12-28 10:00:00 Appointment; KRIS BLANC M.D. HUANG, EDDIE, M.D. [facility] UTP [id number] [facility] 2018-12-11 10:20:00 2018-12-11 10:20:00 Appointment; JESS KAY M.D. DHOBLE, ABHIJEET, M.D. [facility] UTP [id number] [facility] 2018-11-28 12:00:00 2018-11-28 12:00:00 Appointment; SID SCHMITT P.A. SPOONER, JOSEPH, P.A. [facility]TP [id number] [facility] 2018-10-20 13:00:00 2018-10-20 13:00:00 Appointment; AIDE PASTRANA P.A. CRUZ, LETICIA, P.A. [facility] UTP [id number] [facility] 2018-08-28 08:00:00 2018-08-28 08:00:00 Appointment; TAMAR MARIANO P.A. CAMPOS, BERTHA, P.A. [facility] [id number] [facility] 2018-08-23 07:30:00 2018-08-23 07:30:00 Appointment; TAMAR MARIANO P.A. CAMPOS, BERTHA, P.A. [facility]TP [id number] [facility] 2018-06-07 13:45:00 2018-06-07 13:45:00 Appointment; LUCY GEORGES D.O. YEH, SHAO-CHUN, D.O. [facility] UTP [id number] [facility] 2018-02-20 08:30:00 2018-02-20 08:30:00 Appointment; BING ROMERO M.D. MURPHY, THOMAS, M.D. [facility] UTP [id number] [facility] 2018-02-14 09:00:00 2018-02-14 09:00:00 Appointment; TAMAR MARIANO P.A. CAMPOS, BERTHA, P.A. [facility] UTP [id number] [facility] 2017-12-12 11:20:00 2017-12-12 11:20:00 Appointment; JESS KAY M.D. DHOBLE, ABHIJEET, M.D. [facility] UTP [id number] [facility] 2017-11-15 08:45:00 2017-11-15 08:45:00 Appointment; TAMAR MARIANO P.A. CAMPOS, BERTHA, P.A. [facility] UTP [id number] [facility] 2017-09-06 14:30:00 2017-09-06 14:30:00 Appointment; DODIE JACOBS M.D. SATTAR, BEENA, M.D. [facility] UTP [id number] [facility] 2017-08-23 15:00:00 2017-08-23 15:00:00 Appointment; DODIE JACOBS M.D. SATTAR, BEENA, M.D. [facility] UTP [id number] [facility] 2017-08-19 13:15:00 2017-08-19 13:15:00 Appointment; DODIE JACOBS M.D. SATTAR, BEENA, M.D. [facility] UTP [id number] [facility] 2017-08-15 08:15:00 2017-08-15 08:15:00 Appointment; TAMAR MARIANO P.A. CAMPOS, BERTHA, P.A. [facility] UTP [id number] [facility] 2013-10-08 09:37:32 2013-10-08 09:37:32 Outpatient MHIE MHIE [id number] 2013-10-05 08:48:16 2013-10-05 08:48:15 Outpatient MHIE MHIE [id number] 2013-08-30 15:33:45 2013-08-30 15:33:44 Outpatient MHIE MHIE [id number] 2013-08-24 16:21:29 2013-08-24 16:21:29 Outpatient MHIE MHIE [id number] 2013-07-06 12:46:34 2013-07-06 12:46:34 Outpatient MHIE MHIE [id number] 2013-05-22 15:34:18 2013-05-22 15:34:17 Outpatient MHIE MHIE [id number] 2013-05-17 09:37:14 2013-05-17 09:37:13 Outpatient MHIE MHIE [id number] 2013-03-02 17:46:28 2013-03-02 17:46:27 Outpatient MHIE MHIE [id number] 2013-02-14 10:49:29 2013-02-14 10:49:06 Outpatient MHIE MHIE [id number] 2013-01-20 01:12:27 2013-01-20 01:11:48 Outpatient MHIE MHIE [id number] 2013-01-11 04:26:14 2013-01-11 04:26:10 Outpatient MHIE MHIE [id number] 2013-01-06 04:04:31 2013-01-06 04:04:11 Outpatient MHIE MHIE [id number] 2012-11-14 04:13:20 2012-11-14 04:13:01 Outpatient MHIE MHIE [id number] 2012-08-31 22:40:50 2012-08-31 22:40:32 Outpatient MHIE MHIE [id number] 2012-07-27 19:51:44 2012-07-27 19:51:28 Outpatient MHIE MHIE [id number] 2012-07-14 20:08:07 2012-07-14 20:07:51 Outpatient MHIE MHIE [id number] 2012-07-06 21:40:48 2012-07-06 21:40:31 Outpatient MHIE MHIE [id number] Results Test Description Test Time Test Comments Results Result Comments Source CT ABDOMEN/PELVIS W 2020-04-18 23:58:00 [facility] : 1935 Sex: M [place] [phone] [place] [address] Patient Name: GRETTA BYRD MR #: [id number] : 1935 Age/Sex: 84/M Req #: [id number] Adm Physician: Ordered by: LUC BOYLE DO Report #: [id number] Location: ER Room/Bed: Procedure: [id number] CT/CT ABDOMEN/PELVIS W Exam Date: 04/18/20 Exam Time: 2256 REPORT STATUS: Signed EXAM: CT Abdomen and Pelvis WITH contrast INDICATION: Y ABD PAIN 20200418 COMPARISON: CT dated 07/25/2009 TECHNIQUE: Abdomen and pelvis were scanned utilizing a multidetector helical scanner from the lung base to the pubic symphysis after administration of IV contrast. Coronal and sagittal reformations were obtained. Dose modulation, iterative reconstruction, and/or weight based adjustment of the mA/kV was utilized to reduce the radiation dose to as low as reasonably achievable. Routine protocol was performed. Scan was performed when during portal venous phase. IV CONTRAST: 100 mL of Isovue-370 ORAL CONTRAST: None COMPLICATIONS: None RADIATION DOSE: Total DLP: 507.01 mGy*cm Estimated effective dose: (DLP x 0.015 x size factor) mSv CTDIvol has been reviewed. It is below the limits set by the Radiation Protocol Committee (RPC). FINDINGS: LINES and TUBES: None. LOWER THORAX: Partially seen atherosclerotic calcification of coronary arteries. Mild dependent atelectasis. HEPATOBILIARY: No hepatic mass. Tiny left hepatic lobe hypodensity is too small to characterize. No biliary ductal dilation. GALLBLADDER: Surgically absent. SPLEEN: Splenomegaly. PANCREAS: No focal masses or ductal dilatation. ADRENALS: No adrenal nodules KIDNEYS/URETERS: Kidneys enhance symmetrically. No hydronephrosis. No renal mass. Left renal inferior pole subcentimeter hypodensity is too small to characterize. No stones. GI TRACT: No abnormal distention or evidence of bowel obstruction. Mild wall thickening of the descending and rectosigmoid colon. There are diverticula within the colon without evidence of diverticulitis. Appendix is not visualized. Moderate size hiatal hernia. PELVIC ORGANS/BLADDER: Unremarkable. LYMPH NODES: No lymphadenopathy. VESSELS: There is moderate atherosclerotic disease in the aorta and major arterial branches. PERITONEUM / RETROPERITONEUM: No free air or fluid. BONES: Generalized demineralization. Right femoral intramedullary mckenzie fixation is partially visualized. Old posterior left-sided rib fracture deformities. Multilevel adva nced degenerative changes of lumbar spine. SOFT TISSUES: Unremarkable. IMPRESSION: 1. Mild wall thickening of the descending and rectosigmoid colon, could be due to underdistention versus infectious/inflammatory colitis in the appropriate clinical context. 2. Colonic diverticulosis without evidence of diverticulitis. 3. Moderate size hiatal hernia. Signed by: Dr. Lashonda Burleson MD on 04/19/2020 12:08 AM Dictated By: LASHONDA BURLESON MD Transcribed By: TONI on 04/19/207 COPY TO: LUC HAGER DO [QL] CULTURE, URINE, ROUTINE 2020-03-13 00:00:00 Test Item CULTURE (test code = CULTURE) See Comment CULTURE, URINE, ROUTINE Micro Number: [id number] Test Status: Final Specimen Source: URINE Specimen Quality: Adequate Result: Growth of mixed shira was isolated, suggesting probable contamination. No further testing will be performed. If clinically indicated, recollection using a method to minimize contamination, with prompt transfer to Urine Culture Transport Tube, is recommended. [facility][U] XRAY FEMUR 2 VWS RIGHT [id number] 10:19:00Images acquired, not reported on this accession number.[facility][QL] TSH, 3RD GENERATION W/REFLEX TO [id number] 11:31:00* Test Item Value Reference Range Interpretation Comments TSH, 3RD GENERATION W/REFLEX TO FT4 (enmanuel t code = TSH, 3RD GENERATION W/REFLEX TO FT4) 2.20 {MIU/L} 0.40-4.50 N [facility][] THYROID [id number] 11:31:00* Test Item Value Reference Range Interpretation Comments T3 UPTAKE (test code = T3 UPTAKE) 35 % 22-35 N T4 (THYROXINE), TOTAL (test code = T4 (THYROXINE), TOTAL) 10 .0 {mcg/dl} 4.9-10.5 N FREE T4 INDEX (T7) (test code = FREE T4 INDEX (T7)) 3.5 1. 4-3.8 N [facility] METABOLIC [id number] 06:37:00* Test Item Value Reference Range Interpretation [...] CA) 8.7 mg/dL 8.5-10.1 N BASIC METABOLIC [id number] 06:32:00* Test Item Value Reference Range Interpretation [...] code = CA) mg/dL 8.5-10.1 CBC W/AUTO [id number] 06:22:00* Test Item Value Reference Range Interpretation [...] (test code = MDIFF) NO THROMBOPLASTIN TIME [id number] 06:40:00* Test Item Value Reference Range Interpretation Comments THROMBOPLASTIN TIME PARTIAL (test code = PTT) 32.1 seconds 23.0-37. 0 N IS PATIENT ON ANTICOAGULANTS? YLIST ANTICOAGULANTS HEPARINHEPARIN INDUCED [id number] 01:36:00* Test Item Value Reference Range Interpretation Comments HEPARIN INDUCED THROMBOCYTOPEN (test code = HIT) NEGATIVE NEGAT MATTIE CBC W/AUTO [id number] 05:34:00* Test Item Value Reference Range Interpretation [...] = MDIFF) NO, ONLY SCAN NEEDED DIFFERENTIAL [id number] 05:34:00* Test Item Value Reference Range Interpretation Comments STAIN ACCEPTABILITY (test code = STN ACCEPTABLE) STAIN ACCEPTABLE ANISOCYTOSIS (test code = ANISO) 1+ MORPHOLOGY COMMENT (test code = MOC) TEST NOT PERFORMED PLATELET ESTIMATE (test code = PLTEST) DECREASED PLATELET MORPHOLOGY (test code = PLTMORPH) NORMAL THROMBOPLASTIN TIME [id number] 05:34:00* Test Item Value Reference Range Interpretation Comments THROMBOPLASTIN TIME PARTIAL (test code = PTT) 62.7 seconds 23.0-37. 0 H IS PATIENT ON ANTICOAGULANTS? YLIST ANTICOAGULANTS HEPARINCOMMENTS TO PHLEBO TOMIST: DRAW FROM RIGHT ARM.B-TYPE NATRIURETIC [id number] 05:32:00* Test Item Value Reference Range Interpretation Comments B-TYPE NATRIURETIC PEPTIDE (test code = BNP) 562.85 pgram/mL 0-100 H BASIC METABOLIC [id number] 05:19:00* Test Item Value Reference Range Interpretation [...] code = CA) 8.8 mg/dL 8.5-10.1 N [id number] 05:19:00* Test Item Value Reference Range Interpretation Comments MAGNESIUM (test code = MAG) 2.4 mg/dL 1.8-2.4 N CBC W/AUTO [id number] 04:55:00* Test Item Value Reference Range Interpretation [...] = MDIFF) NO, ONLY SCAN NEEDED DIFFERENTIAL [id number] 04:55:00* Test Item Value Reference Range Interpretation Comments STAIN ACCEPTABILITY (test code = STN ACCEPTABLE) CABOT RINGS (test code = CAB) MORPHOLOGY COMMENT (test code = MOC) PLATELET ESTIMATE (test code = PLTEST) PLATELET MORPHOLOGY (test code = PLTMORPH) CBC W/AUTO [id number] 04:55:00* Test Item Value Reference Range Interpretation [...] = MDIFF) NO, ONLY SCAN NEEDED DIFFERENTIAL [id number] 04:55:00* Test Item Value Reference Range Interpretation Comments STAIN ACCEPTABILITY (test code = STN ACCEPTABLE) CABOT RINGS (test code = CAB) MORPHOLOGY COMMENT (test code = MOC) PLATELET ESTIMATE (test code = PLTEST) PLATELET MORPHOLOGY (test code = PLTMORPH) CBC W/AUTO [id number] 04:55:00* Test Item Value Reference Range Interpretation [...] = MDIFF) NO, ONLY SCAN NEEDED DIFFERENTIAL [id number] 04:55:00* Test Item Value Reference Range Interpretation Comments STAIN ACCEPTABILITY (test code = STN ACCEPTABLE) MORPHOLOGY COMMENT (test code = MOC) PLATELET ESTIMATE (test code = PLTEST) PLATELET MORPHOLOGY (test code = PLTMORPH) CBC W/AUTO [id number] 04:55:00* Test Item Value Reference Range Interpretation [...] = MDIFF) NO, ONLY SCAN NEEDED DIFFERENTIAL [id number] 04:55:00* Test Item Value Reference Range Interpretation Comments STAIN ACCEPTABILITY (test code = STN ACCEPTABLE) CABOT RINGS (test code = CAB) MORPHOLOGY COMMENT (test code = MOC) PLATELET ESTIMATE (test code = PLTEST) PLATELET MORPHOLOGY (test code = PLTMORPH) THROMBOPLASTIN TIME [id number] 22:27:00* Test Item Value Reference Range Interpretation Comments THROMBOPLASTIN TIME PARTIAL (test code = PTT) 62.4 seconds 23.0-37. 0 H IS PATIENT ON ANTICOAGULANTS? YLIST ANTICOAGULANTS HEPARINCOVID 19 Asymptomatic IH [id number] 17:25:00* Test Item Value Reference Range Interpretation Comments COVID 19 Asymptomatic IH AG (test code = COVNONPUIAG) NEGATIVE THROMBOPLASTIN TIME [id number] 16:42:00* Test Item Value Reference Range Interpretation Comments THROMBOPLASTIN TIME PARTIAL (test code = PTT) 46.4 seconds 23.0-37. 0 H IS PATIENT ON ANTICOAGULANTS? YLIST ANTICOAGULANTS HEPARIN- XR SHOULDER 2 + V [id number] 15:38:00 FAX: Bing Godoy MD [phone] [place]: St: [facility] FAX: Gretta Magallanes [phone] Name: GRETTA BYRD [facility] : 1935 Age/S: 84/M [address] [facility] Unit #: [id number] Loc: [place] [address] Phys: Gretta Rodarte MD Acct: [id number] Dis Date: Status: ADM IN PHONE #: [phone] Exam Date: 01/23/2020 1518 FAX #: [phone] Reason: RIGHT SHOULDER PAIN EXAMS: CPT CODE: [id number] XR SHOULDER 2 + V RT [id number] REASON FOR EXAM: RIGHT SHOULDER PAIN EXAM ORDER DATE: 01/23/2020 12:00 AM Ordering: Gretta Justice MD Attending:Gretta Justice MD Location:[facility] PROCEDURE: - XR SHOULDER 2 [...] tendino jm of the right supraspinatus tendon. Xnrq-xs-vitwmear chronic degene rative changes. No acute abnormalities. at 1538 Reported and signed by: Corazon Ortiz M.D. CC: Bing Romero; Gretta Rodarte Technologist: Juan Massey, RT(R; Ratna Restrepo RT(R ) Trnscrd Date/Time/By: 01/23/2020 (1538) : By: [email or web address] Orig Mary nt D/T: S: 01/23/2020 (1541) PAGE 1 Signed Report URINALYSIS [id number] 14:56:00* Test Item Value Reference Range Interpretation [...] #/LPF FEW Urine Source? Clean CatchTHROMBOPLASTIN TIME [id number] 09:51:00* Test Item Value Reference Range Interpretation Comments THROMBOPLASTIN TIME PARTIAL (test code = PTT) 56.5 seconds 23.0-37. 0 H IS PATIENT ON ANTICOAGULANTS? YLIST ANTICOAGULANTS HEPARINBASIC METABOLIC [id number] 06:24:00* Test Item Value Reference Range Interpretation [...] CA) 8.9 mg/dL 8.5-10.1 N BASIC METABOLIC [id number] 06:13:00* Test Item Value Reference Range Interpretation [...] code = CA) mg/dL 8.5-10.1 CBC W/AUTO [id number] 05:49:00* Test Item Value Reference Range Interpretation [...] (test code = MDIFF) NO THROMBOPLASTIN TIME [id number] 03:29:00* Test Item Value Reference Range Interpretation Comments THROMBOPLASTIN TIME PARTIAL (test code = PTT) 63.9 seconds 23.0-37. 0 H IS PATIENT ON ANTICOAGULANTS? YLIST ANTICOAGULANTS HEPARINCOMMENTS TO PHLEBO TOMIST: DRAW FROM RIGHT ARMTHROMBOPLASTIN TIME [id number] 18:24:00* Test Item Value Reference Range Interpretation Comments THROMBOPLASTIN TIME PARTIAL (test code = PTT) 34.6 seconds 23.0-37. 0 N IS PATIENT ON ANTICOAGULANTS? YLIST ANTICOAGULANTS HEPARINCOMMENTS TO PHLEBO TOMIST: DRAW FROM RIGHT HANDTHROMBOPLASTIN TIME [id number] 13:45:00* Test Item Value Reference Range Interpretation Comments THROMBOPLASTIN TIME PARTIAL (test code = PTT) 56.1 seconds 23.0-37. 0 H IS PATIENT ON ANTICOAGULANTS? YLIST ANTICOAGULANTS HEPARINCOMMENTS TO PHLEBO TOMIST: DRAW FROM RIGHT ARMBASIC METABOLIC [id number] 07:20:00* Test Item Value Reference Range Interpretation [...] CA) 8.2 mg/dL 8.5-10.1 L BASIC METABOLIC [id number] 07:01:00* Test Item Value Reference Range Interpretation [...] code = CA) mg/dL 8.5-10.1 B-TYPE NATRIURETIC [id number] 06:48:00* Test Item Value Reference Range Interpretation Comments B-TYPE NATRIURETIC PEPTIDE (test code = BNP) 649.00 pgram/mL 0-100 H THROMBOPLASTIN TIME [id number] 06:05:00* Test Item Value Reference Range Interpretation [...] (test code = MDIFF) NO THROMBOPLASTIN TIME [id number] 22:43:00* Test Item Value Reference Range Interpretation Comments THROMBOPLASTIN TIME PARTIAL (test code = PTT) 53.7 seconds 23.0-37. 0 H IS PATIENT ON ANTICOAGULANTS? YLIST ANTICOAGULANTS HEPARINCOMMENTS TO PHLEBO TOMIST: DRAW FROM RIGHT ARMTHROMBOPLASTIN TIME [id number] 14:52:00* Test Item Value Reference Range Interpretation Comments THROMBOPLASTIN TIME PARTIAL (test code = PTT) 44.6 seconds 23.0-37. 0 H IS PATIENT ON ANTICOAGULANTS? YLIST ANTICOAGULANTS HEPARINCOMMENTS TO PHLEBO TOMIST: DRAW FROM RIGHT ARM- PULM VENT PERF [id number] 11:20:00 FAX: Bing Godoy MD [phone] [place]: St: ADM FAX: Sumeet Dailey FAX: Corbin RodarteGretta [facility] --------- Name: GRETTA BYRD [facility] : 1935 Age/S: 84/M [address] [facility] [id number] Loc: [place] [address] Phys: Sumeet España MD Acct: [id number] Dis Date: Status: ADM IN [facility] #: [phone] Exam Date: 01/21/2020 1115 FAX #: [phone] Reason: SOB EXAMS: CPT CODE: [id number] PU LM VENT PERF IMAG [id number] HISTORY: Short ness of breath. COMPARISON: Chest [...] Bing Romero; Sumeet España MD; Gretta Rodarte [facility] Technologis t: YUMIKO COVARRUBIAS Trnscrd Date/Time/By: 01/21/2020 (1120) : By: [email or web address] Orig Print D/T: S: 01/21/2020 (1125) PAGE 1 Signed Report COMPREHENSIVE METABOLIC [id number] 10:03:00* Test Item Value Reference Range Interpretation [...] RELATED TO RISK LEVELS ASRECOMMENDED BY THE STELLA. HEART, LUNG, AND BLOOD INST. HDL CHOLESTEROL (test code = HDL) 25 mg/dL 40-60 L LIPOPROTEIN LDL (test code = LDL) 55 mg/dL 100-129 L Reference Interval: mg/dL mmol/L Optimal <100 <2.6Near/above optimal 100-129 2.6- 3.3Borderline High 130-159 3.4-4.1High 160-189 4.1-4.9Very High >=190 >=4.9========= This LDL result is a direct measurement.========= [id number] 10:03:00* Test Item Value Reference Range Interpretation Comments MAGNESIUM (test code = MAG) 2.5 mg/dL 1.8-2.4 H THYROID PROFILE [id number] 10:03:00* Test Item Value Reference Range Interpretation [...] 5.5 mIU/mL HYPER : < 0.35 mIU/mL [id number] 10:03:00* Test Item Value Reference Range Interpretation Comments TROPONIN-I (test code = TROPI) <0.015 ng/mL 0-0.045 N B-TYPE NATRIURETIC [id number] 09:51:00* Test Item Value Reference Range Interpretation Comments B-TYPE NATRIURETIC PEPTIDE (test code = BNP) 826.66 pgram/mL 0-100 H COMPREHENSIVE METABOLIC [id number] 09:50:00* Test Item Value Reference Range Interpretation [...] LDL (test code = LDL) mg/dL 100-129 [id number] 09:50:00* Test Item Value Reference Range Interpretation Comments MAGNESIUM (test code = MAG) mg/dL 1.8-2.4 THYROID PROFILE [id number] 09:50:00* Test Item Value Reference Range Interpretation Comments T3 UPTAKE (test code = T3UP) % 30.0-40.0 T4 (THYROXINE) (test code = T4) ug/dL 4.5-13.9 T7 (FREE THYROXINE INDEX) (test code = T7) FTI 1.3-5.1 THYROID STIMULATING HORMONE (test code = TSH) uIU/mL 0.36-3.7 4 [id number] 09:50:00* Test Item Value Reference Range Interpretation Comments TROPONIN-I (test code = TROPI) ng/mL 0-0.045 [id number] 09:47:00* Test Item Value Reference Range Interpretation Comments GLYCOSYLATED HEMOGLOBIN (HA1C) (test code = GLYHGB) 5.7 % HbA1 SUGGESTED DIAGNOSIS: HbA1C (%) Diabetic >6.4Prediabetes 5.7 - 6.4Normal <5.7 ESTIMATED AVERAGE GLUCOSE (test code = EAG) 117 MG/DL THROMBOPLASTIN TIME [id number] 09:33:00* Test Item Value Reference Range Interpretation Comments THROMBOPLASTIN TIME PARTIAL (test code = PTT) 56.9 seconds 23.0-37. 0 H IS PATIENT ON ANTICOAGULANTS? YLIST ANTICOAGULANTS HEPARINCOMMENTS TO PHLEBO TOMIST: DRAW ON RIGHT ARM CBC W/AUTO [id number] 09:22:00* Test Item Value Reference Range Interpretation [...] NRBC#) 0.00 K/mm3 0.0-0.1 N THROMBOPLASTIN TIME [id number] 03:30:00* Test Item Value Reference Range Interpretation Comments THROMBOPLASTIN TIME PARTIAL (test code = PTT) 56.4 seconds 23.0-37. 0 H IS PATIENT ON ANTICOAGULANTS? YLIST ANTICOAGULANTS HEPARINCOMMENTS TO PHLEBO TOMIST: DRAW FROM RIGHT ARM THROMBOPLASTIN TIME [id number] 21:14:00* Test Item Value Reference Range Interpretation Comments THROMBOPLASTIN TIME PARTIAL (test code = PTT) 59.9 seconds 23.0-37. 0 H IS PATIENT ON ANTICOAGULANTS? YLIST ANTICOAGULANTS HEPARINCOMMENTS TO PHLEBO TOMIST: DRAW ON RIGHT HAND BASIC METABOLIC [id number] 13:02:00* Test Item Value Reference Range Interpretation [...] code = CA) 8.6 mg/dL 8.5-10.1 N [id number] 13:02:00* Test Item Value Reference Range Interpretation Comments MAGNESIUM (test code = MAG) 2.6 mg/dL 1.8-2.4 H [id number] 13:01:00* Test Item Value Reference Range Interpretation [...] skin infections -Liver cirrhosis - B-TYPE NATRIURETIC [id number] 12:52:00* Test Item Value Reference Range Interpretation Comments B-TYPE NATRIURETIC PEPTIDE (test code = BNP) 999.21 pgram/mL 0-100 H BASIC METABOLIC [id number] 12:51:00* Test Item Value Reference Range Interpretation [...] CALCIUM (test code = CA) mg/dL 8.5-10.1 [id number] 12:51:00* Test Item Value Reference Range Interpretation Comments MAGNESIUM (test code = MAG) mg/dL 1.8-2.4 THROMBOPLASTIN TIME [id number] 12:46:00* Test Item Value Reference Range Interpretation Comments THROMBOPLASTIN TIME PARTIAL (test code = PTT) 31.1 seconds 23.0-37. 0 N IS PATIENT ON ANTICOAGULANTS? [id number] 12:29:00* Test Item Value Reference Range Interpretation Comments HEMATOCRIT (test code = HCT) 38.5 % 42.0-52.0 L PLATELET [id number] 12:29:00* Test Item Value Reference Range Interpretation Comments PLATELET COUNT (test code = PLT) 129 K/mm3 150-450 L [id number] 20:57:00* Test Item Value Reference Range Interpretation Comments TROPONIN-I (test code = TROPI) <0.015 ng/mL 0-0.045 N COMMENTS TO GROCERY CLERK MARKING: COLLECT 3 HOURS AFTER PREVIOUS [id number] 17:19:00* Test Item Value Reference Range Interpretation Comments TROPONIN-I (test code = TROPI) <0.015 ng/mL 0-0.045 N COMMENTS TO GROCERY CLERK MARKING: COLLECT 3 HOURS AFTER PREVIOUS SAMPLEURINALYSIS [id number] 13:54:00* Test Item Value Reference Range Interpretation [...] NEGATIVE UA NITRITE DIPSTICK (test code = MUSTPAHA) NEGATIVE NEGATIVE UA LEUKOCYTE ESTERASE W REFLEX [...] FEW Urine Source? Clean CatchTSH REFLEX TO [id number] 12:27:00* Test Item Value Reference Range Interpretation Comments TSH REFLEX TO FT4 (test code = TSHREFLEX) 0.8 0.4-5.5 N B-TYPE NATRIURETIC [id number] 12:23:00* Test Item Value Reference Range Interpretation Comments B-TYPE NATRIURETIC PEPTIDE (test code = BNP) 683.23 pgram/mL 0-100 H BASIC METABOLIC [id number] 12:18:00* Test Item Value Reference Range Interpretation [...] code = CA) 9.0 mg/dL 8.5-10.1 N [id number] 12:18:00* Test Item Value Reference Range Interpretation Comments TROPONIN-I (test code = TROPI) <0.015 ng/mL 0-0.045 N HEPATIC FUNCTION [id number] 12:18:00* Test Item Value Reference Range Interpretation [...] reference range due to change in reagent. [id number] 12:18:00* Test Item Value Reference Range Interpretation Comments LIPASE (test code = LIP) 156 U/L 73.0-393.0 N PROTHROMBIN [id number] 12:18:00* Test Item Value Reference Range Interpretation [...] (2.5-3.5) IS PATIENT ON ANTICOAGULANTS? NTHROMBOPLASTIN TIME [id number] 12:18:00* Test Item Value Reference Range Interpretation Comments THROMBOPLASTIN TIME PARTIAL (test code = PTT) 31.2 seconds 23.0-37. 0 N IS PATIENT ON ANTICOAGULANTS? NLACTIC [id number] 12:17:00* Test Item Value Reference Range Interpretation Comments LACTIC ACID (test code = LACT) 1.2 mmol/L 0.4-1.9 N BASIC METABOLIC [id number] 12:09:00* Test Item Value Reference Range Interpretation [...] CALCIUM (test code = CA) mg/dL 8.5-10.1 [id number] 12:09:00* Test Item Value Reference Range Interpretation Comments TROPONIN-I (test code = TROPI) ng/mL 0-0.045 CBC W/O [id number] 12:06:00* Test Item Value Reference Range Interpretation [...] code = MPV) fL 6.7-11.0 CBC W/O [id number] 12:06:00* Test Item Value Reference Range Interpretation [...] fL 6.7-11.0 H - XR CHEST 1 [id number] 11:49:00 FAX: Connor Thompson MD [place]: B St: PRE Name: GRETTA MATTSON [facility] : [birth year] Age/S: 84/M [facility] Unit #: [id number] Loc: [place] [address] Phys: Connor Thompson MD Acct: [id number] Dis Date: Status: PRE ER PHONE #: [phone] Exam Date: 01/19/2020 1126 FAX #: [phone] Reason: CHEST PAIN EXAMS: CPT CODE: [id number] XR CHEST 1 V 90143 EXAM: Chest x-ray, one view; INFORMATION: Chest pain; IMPRESSION: 1. No evidence of pulmonary infiltrates or other signs of active cardiopulmonary d isease. 2. No significant change compared with a study from August 18, showing fibrotic changes in both lungs and mild cardiomegaly. Location code: [facility] at 1149 Reported and signed by: Hardik Ochoa M.D. CC: Connor Thompson MD [facility] nologist: ROE JOYCE(R) Trnscrd Date/Ti me/By: 01/19/2020 (4959) : By: JabierW Orig Print D/T: S: 01/19/2020 (0955) PAGE 1 Signed Report [QL] [id number] 08:25:00* Test Item Value Reference Range Interpretation Comments MAGNESIUM (test code = MAGNESIUM) 2.1 mg/dl 1.5-2.5 N [facility][QL] PHOSPHATE ( PHOSPHORUS)2020-01-15 08:25:00 * Test Item Value Reference Range Interpretation Comments PHOSPHATE ( PHOSPHORUS) (test code = PHOSPHATE ( PHOSPHO ZEB)) 3.4 mg/dl 2.1-4.3 N [facility][QL] CMP [id number] 08:25:00* Test Item Value Reference Range Interpretation Comments GLUCOSE; Normal (test code = 1547-9) 94 mg/dl 65-99 N Fasting reference interval UREA NITROGEN (BUN) (test code = UREA NITROGEN (BUN)) 23 mg/dl 7-25 N CREATININE (test code = CREATININE) 2.08 mg/dl 0.70-1.11 For patients >49 years of age, the reference limitfor Creatinine is approximately 13% higher for peopleidentified as -Belgian. eGFR NON-AFR. SIERRA LEONEAN (test code = eGFR NON-AFR. SIERRA LEONEAN) 28 {ML/MIN/1.7} > OR = 60 eGFR [...] N BILIRUBIN, TOTAL; Normal (test code = 62195-7) 1.0 mg/dl 0.2-1.2 N ALKALINE PHOSPHATASE (test code = ALKALINE PHOSPHATASE) 95 u/l 35-144 N AST; Normal (test code = 1916-6) 18 u/l 10-35 N ALT; Normal (test code = 1742-6) 11 u/l 9-46 N [facility][QL] PTH, INTACT (WITHOUT CALCIUM)2020-01-15 08:25:00* Test Item Value Reference Range Interpretation Comments PARATHYROID HORMONE, INTACT (test code = PARATHYROID HORMONE , INTACT) 25 pg/ml 14-64 N Interpretive Guide Intact PTH Calcium -------Normal Parathyroid Normal NormalHypoparathyroidism Low or Low Normal LowHyperparathyroidism Primary Normal or High High Secondary High Normal or Low Tertiary High HighNon- Parathyroid Hypercalcemia Low or Low Normal High [facility][QL] VITAMIN D, 25-HYDROXY, LC/MS/[id number] 08:25:00* Test Item Value Reference Range Interpretation [...] D, (D2,D3), LC/MS/MS is recommended: order code 79387 (patients >2yrs).See Note 1 Note 1 For additional information, please refer to http://education.Movie Mouth/faq/OKQ555 (This link is being provided for informational/educational purposes only.) [facility] Bone Density [employer] [id number] 12:30:00MALE BONE DENSITY ASSESSMENT: 01/14/2020CLINICAL DATA: Clinical [...] evaluation was performed 01/14/2020 on the AP L1-Z4sjmgyk of spine using a Hologic unit. The BMD average for the exam is 1.154 g/cm2. The T-score is 0.60 and the Z-score is 1.90. This matches the WorldHealth Organization's criteria for normal bone density and places the patientwithin normal limits of fracture risk. IMPRESSION: OSTEOPOROSISPatient is at high risk for fracture. Patient consult w/primary care provideris recommended. This exam was interpreted at [id number] at [facility]. Kathleen Feldman M.D. as/penrad:01/14/2020 15:38:42 [employer] Warden(s): Zee JOYCE(R)(M), [facility]--Read by: Kathleen Pedro MDDictated Date/time: 01/14/20 15:38Electronically Signed by : Kathleen Feldman MD 01/13/2015:38FINAL [facility]PORTU[facility][U] XRAY FEMUR 2 VWS RIGHT [id number] 14:08:00Images acquired, not reported on this accession number.[facility] XRAY Chest 2 views [id number] 09:14:00PROCEDURE INFORMATION:Exam: XR Chest, 2 ViewsExam date [...] cardiopulmonary abnormality.Faiza Chandler MD On 11/15/2019 09:38:40; [id number]--Jxal by : Faiza Chandler MDDictated Date/time: 11/15/19 09:38Electronically Si gned by: Faiza Chandler MD 11/14/2008:38FINAL REPORT [facility][Q] LIPID PANEL WITH REFLEX TO DIRECT LDL 2019-11-02 08:52:00* Test Item Value Reference Range Interpretation Comments CHOLESTEROL, TOTAL; Normal (test code = 2093-3) 107 mg/dl <200 N HDL CHOLESTEROL; Below Low Threshold (test code = 2085-9) 35 mg/dl > OR = 40 TRIGLYCERIDES; Normal (test code = 2571-8) 99 mg/dl <150 N LDL-CHOLESTEROL; Normal (test code = 26337-3) 54 {MG/DL LISA} N Reference range: <100 Desirable range <100 mg/dL for primary prevention; <70 mg/dL for patients with CHD or diabetic patients with > or = 2 CHD risk factors. LDL-C is now calculated using the Toby-Boyle calculation, which is a validated novel method providing better accuracy than the Friedewald equation in the estimation of LDL-C. Toby SS et al. NIXON. 2013;310(19): 3998-3535 (http ://AudioSnaps.Movie Mouth/faq/TCN140) CHOL/HDLC RATIO (test code = CHOL/HDLC RATIO) 3.1 {CALC} <5.0 N NON HDL CHOLESTEROL (test code = NON HDL CHOLESTEROL) 72 {MG/DL CA L} <130 N For patients with diabetes plus 1 major ASCVD risk factor, treating to a non-HDL-C goal of <100 mg/dL (LDL-C of <70 mg/dL) is considered a therapeutic option. [facility][QL] CMP [id number] 08:52:00* Test Item Value Reference Range Interpretation Comments GLUCOSE; Normal (test code = 1547-9) 85 mg/dl 65-99 N Fasting reference interval UREA NITROGEN (BUN) (test code = UREA NITROGEN (BUN)) 16 mg/dl 7-25 N CREATININE (test code = CREATININE) 1.64 mg/dl 0.70-1.11 For patients >49 years of age, the reference limitfor Creatinine is approximately 13% higher for peopleidentified as -Belgian. eGFR NON- (test code = eGFR NON-RAMIRO N SIERRA LEONEAN) 38 {ML/MIN/1.7} > OR = 60 eGFR [...] N BILIRUBIN, TOTAL; Normal (test code = 05130-3) 0.9 mg/dl 0.2-1.2 N ALKALINE PHSPHATASE (test code = ALKALINE PHSPHATASE) 78 u/l 35-144 N AST; Normal (test code = 1916-6) 20 u/l 10-35 N ALT; Normal (test code = 1742-6) 10 u/l 9-46 N eGFR NON-AFR. SIERRA LEONEAN (test code = eGFR NON-AFR. SIERRA LEONEAN) 38 {ML/MIN/1.7} > OR = 60 ALKALINE PHOSPHATASE (test code = ALKALINE PHOSPHATASE) 78 u/l 35-144 N [facility][QL] CREATINE KINASE, [id number] 08:52:00* Test Item Value Reference Range Interpretation Comments CREATINE KINASE, TOTAL (test code = CREATINE KINASE, TOTAL) 82 u/l 44-196 N [facility][QL] TSH, 3RD GENERATION W/REFLEX TO [id number] 08:52:00* Test Item Value Reference Range Interpretation Comments TSH, 3RD GENERATION W/REFLEX TO FT4 (enmanuel t code = TSH, 3RD GENERATION W/REFLEX TO FT4) 0.21 {MIU/L} 0.40-4.50 [facility][QL] T4, [id number] 08:52:00* Test Item Value Reference Range Interpretation Comments T4, FREE (test code = T4, FREE) 1.6 ng/dl 0.8-1.8 N [facility][QL] PROTHROMBIN W/INR + PARTIAL THROMBOPLASTIN [id number] 08:51:00* Test Item Value Reference Range Interpretation Comments PARTIAL THROMBOPLASTIN TIME, ACTIVATED ( test code = PARTIAL THROMBOPLASTIN TIME, ACTIVATED) 31 {sec} 22-34 N This test has no t been validated for monitoringunfractionated heparin therapy. For testing thatis validated for this type of therapy, please referto the Heparin Anti-Xa assay (test code 42028). For additional information, please refer tohttp://education.Movie Mouth/faq/UQM331(This link is being provided for informational/educational purposes only.) INR (test code = INR) 1.0 N Refere nce Range 0.9-1.1Moderate-intensity Warfarin Therapy 2.0-3.0Higher-intensity Warfarin Therapy 3.0-4.0 PT (test code = PT) 10.3 {sec} 9.0-11.5 N [facility][U] XRAY KNEE 1 OR 2 VWS RIGHT [id number] 13:46:00Images acquired, not reported on this accession number.[facility] PhysiciansAFB culture + smear (non-sputum)2019-10-08 14:20:00* Test Item Value Reference Range Interpretation Comments Result (test code = 6463-4) No acid-fast bacilli isolated in 42 day s AFB Smear (test code = 75645-4) No acid fast bacilli seen [facility] + [facility]AR (NON-SPUTUM)2019-10-08 14:20:00 * Test [...] Negative N NITRITE; Normal (test code = 32440-7) Negative N UROBILINOGEN; Normal (test code = 60167-1) Normal N PROTEIN (test code = 32399-2) Trace pH (test code = pH) 5 URINE BLOOD; Normal (test code = 47035-6) Negative N SPECIFIC GRAVITY; Normal (test code = 2965-2) 1.020 N KETONES; Normal (test code = 12784-5) Negative N BILIRUBIN; Normal (test code = 55794-9) Negative N [facility] PhysiciansFungus culture + [id number] 18:03:00* Test Item Value Reference Range Interpretation Comments Result (test code = 6463-4) No fungus isolated in 28 days Fungus Smear (test code = 1406) No fungi seen [facility] + [id number] 18:03:00* Test Item Value Reference Range Interpretation Comments CULTURE (BEAKER) (test code = 1095) No fungus isolated in 28 days FUNGUS SMEAR (BEAKER) (test code = 1406) No fungi seen FUNGUS CULTURE + [id number] 18:03:00* Test Item Value Reference Range Interpretation Comments CULTURE (BEAKER) (test code = 1095) No fungus isolated in 28 days FUNGUS SMEAR (BEAKER) (test code = 1406) No fungi seen FUNGUS CULTURE + [id number] 18:03:00* Test Item Value Reference Range Interpretation Comments CULTURE (BEAKER) (test code = 1095) No fungus isolated in 28 days FUNGUS SMEAR (BEAKER) (test code = 1406) No fungi seen Basic Metabolic [id number] 04:56:00* Test Item Value Reference Range Interpretation [...] 92 mg/dL 70-105 Calcium (test code = 34392-2) 7.9 mg/dL 8.4-10.2 L EGFR (test code = 47133-9) 37 mL/min/1.73 sq m ESTIMATED GFR IS NOT ACCURATE CREATININE CLEARANCE IN PREDICTING GLOMERULAR FILTRATION RATE. ESTIMATED GFR IS NOT APPLICABLE FOR DIALYSIS PATIENTS. Lab Interpretation (test code = 70752-4) Abnormal [facility] METABOLIC [id number] 04:56:00* Test Item Value Reference Range Interpretation [...] 450 K/CU MM MPV (test code = 26546-1) 13.0 fL 9.4-12.4 H Lab Interpretation (test code = 43605-7) Abnormal [facility] (HEMOGRAM ONLY)2019-09-10 04:49:00* Test Item Value Reference [...] 13.0 fL 9.4-12 .4 H Comprehensive metabolic [id number] 05:12:00* Test Item Value Reference Range Interpretation Comments Protein, Total (test code = 2885-2) 5.9 6.0- 8.3 gm/dL L Albumin (test code = 68712-9) 3.4 g/dL 3.5-5 L Alkaline Phosphatase (test code = 6768-6) 83 U/L 40-150 Total Bilirubin (test code = 1975-2) 1.1 mg/dL 0.2-1.2 Sodium (test code = 2951-2) 132 meq/L 136-145 L Potassium (test code = 2823-3) 3.9 meq/L 3.5-5.1 Chloride (test code = 5-0) 92 meq/L 98-107 L CO2 (test code = 2027-9) 33 meq/L 22-29 H BUN (test code = 3094-0) 30 mg/dL 7-21 H Creatinine (test code = 2160-0) 1.91 mg/dL 0.57-1.25 H Glucose (test code = 2345-7) 87 mg/dL 70-105 Calcium (test code = 63822-1) 8.2 mg/dL 8.4-10.2 L AST (test code = 1920-8) 18 U/L 5-34 ALT (test code = 1742-6) 15 U/L 6-55 EGFR (test code = 14381-5) 34 mL/min/1.73 sq m ESTIMATED GFR IS NOT ACCURATE CREATININE CLEARANCE IN PREDICTING GLOMERULAR FILTRATION RATE. ESTIMATED GFR IS NOT APPLICABLE FOR DIALYSIS PATIENTS. Lab Interpretation (test code = 19973-8) Abnormal [id number] 05:12:00* Test Item Value Reference Range Interpretation [...] PATIENTS. CBC with platelet count + automated [id number] 04:48:00* Test Item Value Reference Range Interpretation [...] 450 K/CU MM MPV (test code = 56046-6) 13.4 fL 9.4-12.4 H % Neutros (test [...] % 0-1 Lab Interpretation (test code = 54308-2) Abnormal [facility] W/PLT COUNT & AUTO [id number] 04:48:00* Test Item Value Reference Range Interpretation [...] 2801) 0 % 0-1 TSH/Free T4 If [id number] 09:57:00* Test Item Value Reference Range Interpretation Comments TSH (test code = 97242-8) 3.92 0.35- 4.94 uIU/mL DUDLEY (test code = DUDLEY) Boarding Room Fixer ID Mannie White Lab Interpretation (test code = 98854-9) Normal [place] [facility] [facility] [id number] 09:57:00* Test Item Value Reference Range Interpretation Comments THYROID STIMULATING HORMONE (BEAKER) (test code = 772) 3.92 uIU/mL 0.35-4.94 Boarding Room Fixer ID Mannie ZEPEDA FVitamin D, 13-[id number] 05:25:00* Test Item Value Reference Range Interpretation Comments Vitamin D 25-Hydroxy (test code = 2764) 31.9 ng/mL 6.6-49.9 DUDLEY (test code = DUDLEY) Effective 03/23/2017: Refere nce Range ChangeNew: 6.6-49.9 ng/mL Previous: 13.0-47.8 ng/mL Recommended Vitamin D Target Range: 30.0-40.0 ng/mLOperator HUSSEIN BRITOA Kae Lab Interpretation (test code = 43437-6) Normal [facility] Hollywood[facility], [id number] 05:25:00* Test Item Value Reference Range Interpretation Comments VITAMIN D 25-OH (BEAKER) (test code = 2764) 31.9 ng/mL 6.6-49.9 Effective 03/23/2017: Reference Range ChangeNew: 6.6-49.9 ng/mL Previous: 13.0 -47.8 ng/mLRecommended Vitamin D Target Range: 30.0-40.0 ng/mLOperator ID - HUNTER [id number] 05:02:00* Test Item Value Reference Range Interpretation Comments Magnesium (test code = 49252-8) 1.9 mg/dL 1.6-2.6 DUDLEY (test code = DUDLEY) Boarding Room Fixer ID - HUNTER M Lab Interpretation (test code = 64213-4) [facility] Hollywood[facility]osph[facility]2020-03-26 05:02:00* Test Item Value Reference Range Interpretation Comments Phosphorus (test code = 2777-1) 2.7 mg/dL 2.3-4.7 DUDLEY (test code = DUDLEY) Boarding Room Fixer ID - HUNTER Lab Interpretation (test code = 04213-2) Normal [facility] Hollywood[facility]OSPHORUS2020-03-26 05:02:00* Test Item Value Reference Range Interpretation Comments PHOSPHORUS (BEAKER) (test code = 604) 2.7 mg/dL 2.3-4.7 Boarding Room Fixer ID - HUNTER [id number] 05:02:00* Test Item Value Reference Range Interpretation Comments MAGNESIUM (BEAKER) (test code = 627) 1.9 mg/dL 1.6-2.6 Boarding Room Fixer ID - HUNTER MBASIC METABOLIC [id number] 05:02:00* Test Item Value Reference Range Interpretation [...] GFR IS NOT APPLICABLE FOR DIALYSIS PATIENTS. Boarding Room Fixer ID - HUNTER MRAD, CHEST, 1 VIEW, NON [id number] 04:50:00Reason for exam:->hypercarbic respiratory insufficiencyShould this be [...] 09/06/2019 04:50:50 chest 1 view portable / [id number] 04:50:00Interface, External Ris In - 09/06/2019 4:53 AM CDTFINAL REPORT RAD, CHEST, 1 VIEW, NON DEPT INDICATION: hypercarbic respiratory insufficiency COMPARISON: Prior day's exam FINDINGS: Portable frontal view of the chest. IMPRESSION: Lungs and pleura: Unchanged airspace and pleural opacities. No pneumothorax.Heart and mediastinum: Stable contours. Additional findings: None. Signed: Shala Al MDReport Verified Date/Time: 09/06/2019 04:50:50 [facility] HollywoodCT, [id number] 17:38:00Patient with DORCAS and prior CT scan [...] or pelvis since 08/31/2019. Signed: Kelly Dhillon MDReport Verified Date/Time: 09/05/2019 17:38:46 Reading Location: [facility] B1 C013Y CT Body Reading Room Elec tronically signed by: KELLY DHILLON MD on 09/05/2019 05:[address] abdomen/pelvis without iv [id number] 17:38:00Interface, External Ris In - 09/05/2019 5:40 [...] abdomen or pelvis since 08/31/2019. S igned: Likhari, Gauruv MDReport Verified Date/Time: 09/05/2019 17:38:46 Reading Location: [facility] B1 C013[facility] CT Body Reading Room [facility] Creatinine, random [id number] 14:36:00* Test Item Value Reference Range Interpretation Comments Creatinine, Ur (test code = 2161-8) 102.9 mg/dL DUDLEY (test code = DUDLEY) Reference Range: No NormalsOperator ID - DE LA ROSA MADALYN [facility] [id number] 14:36:00* Test Item Value Reference Range Interpretation Comments Sodium Urine (test code = 2955-3) 106 meq/L DUDLEY (test code = DUDLEY) Reference Range: No NormalsOperator ID - DE LA ROSA MADALYN F [facility] HollywoodUrea Nitrogen, random [id number] 14:36:00* Test Item Value Reference Range Interpretation Comments Urea Nitrogen, Ur (test code = 3095-7) 601 mg/dL DUDLEY (test code = DUDLEY) Reference Range: No NormalsOperator ID - DE LA ROSA MADALYN F [facility] HollywoodCREATININE, RANDOM [id number] 14:36:00* Test Item Value Reference Range Interpretation [...] Reference Range: No NormalsOperator ID - KATELYN FUrinalysis without Okloukpkbjw9032-29-66 14:28:00* Test Item Value Reference Range Interpretation Comments Color, UA (test code = 5778-6) Yellow Clarity, UA (test code = 5767-9) Clear Specific Hines, UA (test code = 5811-5) 1.015 1.001-1.035 pH, UA (test code = 5803-2) 8.0 5.0-8.0 Protein, UA (test code = 51887-3) 20 mg/dL Negative A Glucose, UA (test code = 365) Negative Negative Ketones, UA (test code = 2514-8) Negative Negative Bilirubin, UA (test code = 29997-8) Negative Negative Blood, UA (test code = 75180-2) Negative Negative Nitrite, UA (test code = 5802-4) Negative Negative Leukocytes, UA (test code = 5799-2) Negative Negative Urobilinogen, UA (test code = 28492-9) 2.0 mg/dL 0.2-1 H Specimen Source (test code = 2795) DUDLEY (test code = DUDLEY) Boarding Room Fixer ID - [auto]Boarding Room Fixer ID - tech Boarding Room Fixer ID - tech Lab Interpretation (test code = 63087-9) [facility] WITHOUT [id number] 14:28:00* Test Item Value Reference Range Interpretation [...] 0.2-1.0 H SOURCE(BEAKER) (test code = 2795) Boarding Room Fixer ID - [auto]Boarding Room Fixer ID - techOperator ID - techBlood gas, venous 2019-09-05 06:46:00* Test Item Value Reference Range Interpretation Comments pH, Evangelist (test code = 2746-6) 7.54 7.32-7.42 H pCO2, Evangelist (test code = 755) 45 41- 51 mmHg pO2, Evangelist (test code = 2705-2) 49 25- 40 mmHg H O2 Sat, Evangelist (test code = 2711-0) 90.7 % 40-70 H HCO3, Evangelist (test code = 09806-9) 38 mmol/L 21-29 H Base Excess, Evangelist (test code = 1927-3) 13.8 mmol/L -2-3 H Patient Temperature (test code = 8310-5) 35.6 C FIO2 (test code = 1819) 21 % Lab Interpretation (test code = 02248-7) Abnormal [facility] GAS, [id number] 06:46:00* Test Item Value Reference Range Interpretation [...] (BEAKER) (test code = 1819) 21.0 % [id number] 06:36:00* Test Item Value Reference Range Interpretation Comments MAGNESIUM (BEAKER) (test code = 627) 2.0 mg/dL 1.6-2.6 Boarding Room Fixer ID - HUNTER MBASIC METABOLIC [id number] 06:36:00* Test Item Value Reference Range Interpretation [...] GFR IS NOT APPLICABLE FOR DIALYSIS PATIENTS. Boarding Room Fixer ID - HUNTER MRAD, CHEST, 1 VIEW, NON [id number] 05:05:00Reason for exam:->hypercarbic respiratory insufficiencyShould this be performed at the bedside?->YesFINAL REPORT CLINICAL INDICATION: Respiratory insufficiency Comparison: 09/04/2019 The patient is rotated to the left. The cardiomediastinal contours are grossly stable. Bilateral parenchymal and pleural opacities are unchanged. There is no pneumothorax. Signed: Belinda Ravi MDReport Verified Date/Time: 09/05/2019 05:05:36 [id number] 17:29:00* Test Item Value Reference Range Interpretation Comments Potassium (test code = 2823-3) 4.1 meq/L 3.5-5.1 Specimen slightly hemolyzed DUDLEY (test code = DUDLEY) Boarding Room Fixer ID - JORDY Lab Interpretation (test code = 39140-6) Normal [facility] HospitalMAGN[facility]IUM2020-03-24 17:29:00* Test Item Value Reference Range Interpretation Comments MAGNESIUM (BEAKER) (test code = 627) 2.0 mg/dL 1.6-2.6 Specimen slightly hemolyzed Boarding Room Fixer ID - [id number] 17:29:00* Test Item Value Reference Range Interpretation Comments POTASSIUM (BEAKER) (test code = 379) 4.1 meq/L 3.5-5.1 Specimen slightly hemolyzed Boarding Room Fixer ID - EMERSONCalcium, [id number] 17:28:00* Test Item Value Reference Range Interpretation Comments Calcium, Ion (test code = 1993-) 1.11 mmol/L 1.12-1.27 L pH, Blood (test code = 09038-1) 7.47 DUDLEY (test code = DUDLEY) Check serum Ionized Calcium level after 4 hours after IV Calcium replacement. Lab Interpretation (test code = 10641-6) Abnormal [facility] HospitalCALCIUM, [id number] 17:28:00* Test Item Value Reference Range Interpretation Comments CALCIUM IONIZED (BEAKER) (test code = 698) 1.11 mmol/L 1.12-1.27 L PH, BLOOD (BEAKER) (test code = 1810) 7.47 Check serum Ionized Calcium level after 4 hours after IV Calcium replacement. BASIC METABOLIC [id number] 05:18:00* Test Item Value Reference Range Interpretation [...] GFR IS NOT APPLICABLE FOR DIALYSIS PATIENTS. Boarding Room Fixer ID - HUNTER MCBC W/PLT COUNT & AUTO [id number] 04:47:00* Test Item Value Reference Range Interpretation [...] % 0-1 RAD, CHEST, 1 VIEW, NON [id number] 02:52:00Reason for exam:->hypercarbic respiratory insufficiencyShould this be [...] = 6463-4) No growth in 5 days [facility]BL[facility] [id number] 13:00:00* Test Item Value Reference Range Interpretation Comments CULTURE (BEAKER) (test code = 1095) No growth in 5 days BLOOD [id number] 13:00:00* Test Item Value Reference Range Interpretation Comments CULTURE (BEAKER) (test code = 1095) No growth in 5 days ECG 12 [id number] 06:45:18Interface, External Ris In - 09/03/2019 6:45 AM CDTVentricular Rate 72 BPMAtrial Rate 72 BPMP-R Interval 162 msQRS Duration 106 msQ-T Interval 558 msQTC Calculation(Bazett) 611 msP [place] 76 degreesR [place] 46 degreesT [place] 83 degreesNormal sinus rhythmPossible Inferior infarct , age undeterminedST & T wave abnormality, consider anterolateral ischemiaProlonged QTAbnormal ECGWhen compared with ECG of 31-AUG-2019 12:28,T wave inversion now evident in Inferior leadsConfirmed by MD JOSEPH, FESTUS Funk ([id number]) on 09/03/2019 6:45:13 [facility]BAS[facility] [id number] 06:06:00 * Test Item Value Reference Range [...] GFR IS NOT APPLICABLE FOR DIALYSIS PATIENTS. Boarding Room Fixer ID - SOFÍA LHepatic function [id number] 06:00:00* Test Item Value Reference Range Interpretation Comments Protein, Total (test code = 2885-2) 6.9 6.0- 8.3 gm/dL Albumin (test code = 13339-9) 3.4 g/dL 3.5-5 L Total Bilirubin (test code = 1974-) 0.8 mg/dL 0.2-1.2 Bilirubin, Direct (test code = 1967-7) 0.5 mg/dL 0.1-0.5 Alkaline Phosphatase (test code = 6768-6) 84 U/L 40-150 AST (test code = 1920-8) 33 U/L 5-34 ALT (test code = 1742-6) 22 U/L 6-55 DUDLEY (test code = DUDLEY) Boarding Room Fixer ID - SOFÍA L Lab Interpretation (test code = 85447-0) Abnormal [facility] Hospi[id number] 06:00:00* Test Item Value Reference Range Interpretation Comments PHOSPHORUS (BEAKER) (test code = 604) 4.4 mg/dL 2.3-4.7 Boarding Room Fixer ID - SOFÍA [id number] 06:00:00* Test Item Value Reference Range Interpretation Comments MAGNESIUM (BEAKER) (test code = 627) 2.4 mg/dL 1.6-2.6 Boarding Room Fixer ID - SOFÍA LHEPATIC FUNCTION [id number] 06:00:00* Test Item Value Reference Range Interpretation [...] (test code = 347) 22 U/L 6-55 Boarding Room Fixer ID - PIAYA LCBC (HEMOGRAM ONLY)2019-09-03 05:52:00* Test Item Value [...] 0 /100 WBC 0 -0 Blood gas, [id number] 05:28:00* Test Item Value Reference Range Interpretation [...] 35 % Lab Interpretation (test code = 91499-6) Abnormal [facility] HospitalBL[facility] GAS, [id number] 05:28:00* Test Item Value Reference Range Interpretation [...] 35.0 % RAD, CHEST, 1 VIEW, NON [id number] 05:00:00Reason for exam:->hypercarbic respiratory insufficiencyShould this be performed at the bedside?->YesFINAL REPORT CLINICAL INDICATION: Respiratory insufficiency Comparison: 09/02/2019 The cardiomediastinal contours are stable. Central pul monary vascular prominence and bilateral parenchymal and pleural opacities are u nchanged. There is no pneumothorax. Signed: Belinda Ravi Verified Date /Time: 09/03/2019 05:00:32 [id number] 18:13:00* Test Item Value Reference Range Interpretation Comments PHOSPHORUS (BEAKER) (test code = 604) 4.3 mg/dL 2.3-4.7 Boarding Room Fixer ID Mannie CAICEDO [id number] 18:13:00* Test Item Value Reference Range Interpretation Comments MAGNESIUM (BEAKER) (test code = 627) 2.4 mg/dL 1.6-2.6 Boarding Room Fixer ID Mannie CAICEDO WBASIC METABOLIC [id number] 18:13:00* Test Item Value Reference Range Interpretation [...] GFR IS NOT APPLICABLE FOR DIALYSIS PATIENTS. Boarding Room Fixer HUSSEIN MCQUEENLOOD GAS, [id number] 17:20:00* Test Item Value Reference Range Interpretation [...] 1819) 32.0 % Stool culture + Shiga [id number] 14:15:00* Test Item Value Reference Range Interpretation Comments Result (test code = 6463-4) No Salmonella, Shigella or Campyloba cter isolated [facility] PATH [id number] 14:15:00* Test Item Value Reference Range Interpretation Comments Pathogen exam charged (test code = 2381) [facility] SHIGA [id number] 14:15:00* Test Item Value Reference Range Interpretation Comments CULTURE (BEAKER) (test code = 1095) No Salmonella, Brandee gella or Campylobacter isolated [facility] PATH [id number] 14:15:00* Test Item Value Reference Range Interpretation Comments PATHOGEN EXAM CHARGED (BEAKER) (test code = 2381) Done RAD, CHEST, 1 VIEW, NON [id number] 09:42:00Reason for exam:->hypercarbic respiratory insufficiencyShould this be [...] Verified Date/Time: 09/02/2019 09:42:56 Reading Loc ation: [facility] B1 C013X Ortho Consult Reading Room C METABOLIC [id number] 04:22:00 * Test Item Value Reference Range [...] GFR IS NOT APPLICABLE FOR DIALYSIS PATIENTS. Boarding Room Fixer ID - PIAYA [id number] 04:20:00* Test Item Value Reference Range Interpretation Comments MAGNESIUM (BEAKER) (test code = 627) 2.4 mg/dL 1.6-2.6 Specimen slightly hemolyzed Boarding Room Fixer ID - SOFÍA [id number] 04:20:00* Test Item Value Reference Range Interpretation Comments PHOSPHORUS (BEAKER) (test code = 604) 3.8 mg/dL 2.3-4.7 Specimen slightly hemolyzed Boarding Room Fixer ID - PISHERIE LCBC (HEMOGRAM ONLY)2019-09-02 03:57:00* Test Item Value [...] 0 /100 WBC 0 -0 BLOOD GAS, [id number] 03:56:00* Test Item Value Reference Range Interpretation [...] (test code = 1819) 60.0 % CALCIUM, [id number] 03:55:00* Test Item Value Reference Range Interpretation Comments CALCIUM IONIZED (BEAKER) (test code = 698) 1.14 mmol/L 1.12-1.27 PH, BLOOD (BEAKER) (test code = 1810) 7.48 BLOOD GAS, [id number] 19:49:00* Test Item Value Reference Range Interpretation [...] code = 1819) 60.0 % BLOOD GAS, [id number] 18:04:00* Test Item Value Reference Range Interpretation [...] (BEAKER) (test code = 1819) 21.0 % [id number] 17:10:00* Test Item Value Reference Range Interpretation Comments MAGNESIUM (BEAKER) (test code = 627) 2.4 mg/dL 1.6-2.6 Specimen slightly hemolyzed Boarding Room Fixer ID - [id number] 17:10:00* Test Item Value Reference Range Interpretation Comments POTASSIUM (BEAKER) (test code = 379) 4.0 meq/L 3.5-5.1 Specimen slightly hemolyzed Boarding Room Fixer ID - DBCALCIUM, [id number] 17:02:00* Test Item Value Reference Range Interpretation Comments CALCIUM IONIZED (BEAKER) (test code = 698) 1.08 mmol/L 1.12-1.27 L PH, BLOOD (BEAKER) (test code = 1810) 7.46 Check serum Ionized Calcium level after 4 hours after IV Calcium replacement. Shiga Toxin [id number] 14:58:00* Test Item Value Reference Range Interpretation Comments Shiga toxin 1 (test code = 47153-1) Not detected Not detected Shiga toxin 2 (test code = 48043-5) Not detected Not detected Lab Interpretation (test code = 45580-5) [facility] [id number] 14:58:00* Test Item Value Reference Range Interpretation Comments SHIGA TOXIN 1 (BEAKER) (test code = 2177) Not detected Not detected SHIGA TOXIN 2 (BEAKER) (test code = 2179) Not detected Not detected [id number] 12:07:00* Test Item Value Reference Range Interpretation Comments MAGNESIUM (BEAKER) (test code = 627) 2.6 mg/dL 1.6-2.6 Specimen slightly hemolyzed Boarding Room Fixer ID - SASCHA [id number] 12:07:00* Test Item Value Reference Range Interpretation Comments POTASSIUM (BEAKER) (test code = 379) 3.3 meq/L 3.5-5.1 L Specimen slightly hemolyzed Boarding Room Fixer ID - SASCHA WCALCIUM, [id number] 11:36:00* Test Item Value Reference Range Interpretation Comments CALCIUM IONIZED (BEAKER) (test code = 698) 1.09 mmol/L 1.12-1.27 L PH, BLOOD (BEAKER) (test code = 1810) 7.52 Check serum Ionized Calcium level after 4 hours after IV Calcium replacement. [id number] 05:50:00* Test Item Value Reference Range Interpretation Comments MAGNESIUM (BEAKER) (test code = 627) 2.2 mg/dL 1.6-2.6 Specimen slightly hemolyzed Boarding Room Fixer ID - HUNTER [id number] 05:50:00* Test Item Value Reference Range Interpretation Comments PHOSPHORUS (BEAKER) (test code = 604) 2.3 mg/dL 2.3-4.7 Specimen slightly hemolyzed Boarding Room Fixer ID - HUNTER MBASIC METABOLIC [id number] 05:50:00* Test Item Value Reference Range Interpretation [...] GFR IS NOT APPLICABLE FOR DIALYSIS PATIENTS. Boarding Room Fixer ID - HUNTER MCALCIUM, [id number] 05:31:00* Test Item Value Reference Range Interpretation [...] 0 -0 RAD, CHEST, 1 VIEW, NON [id number] 02:57:00Reason for exam:->respiratory insufficiencyShould this be performed at the bedside?->YesFINAL REPORT CLINICAL INDICATION: Respiratory insufficiency Comparison: 08/31/2019 The cardiomediastinal contours are stable. Central pulmonary vascular congestion and bilateral parenchymal and pleural opacities are similar within variation of acquisition technique. There is no pneumothorax. Signed: Belinda Ravi MDReport Verified Date/Time: 09/01/2019 02:57:44 [id number] 23:14:00* Test Item Value Reference Range Interpretation Comments MAGNESIUM (BEAKER) (test code = 627) 2.3 mg/dL 1.6-2.6 Specimen moderately hemolyzed Boarding Room Fixer ID - PIAYA LBASIC METABOLIC [id number] 23:14:00* Test Item Value Reference Range Interpretation [...] GFR IS NOT APPLICABLE FOR DIALYSIS PATIENTS. Boarding Room Fixer ID - PIAYA LCALCIUM, [id number] 22:51:00* Test Item Value Reference Range Interpretation Comments CALCIUM IONIZED (BEAKER) (test code = 698) 1.12 mmol/L 1.12-1.27 PH, BLOOD (BEAKER) (test code = 1810) 7.44 CT, CHEST, WITH [id number] 17:17:00FINAL REPORT TECHNIQUE: CT of the chest, [...] with and without intravenous contrast with M GROUP DIRECTOR EXPERIENCE is recommended in one year to document stability. 8.The subcutaneous gas in the left upper chest is a nonspecific finding. Signed: Shoaib Shields MDReport Verif ied Date/Time: 08/31/2019 17:17:48 Reading Location: [facility] Diagnostic Imaging [facility] - [place] [address] , [id number] 17:17:00FINAL REPORT TECHNIQUE: CT of the chest, [...] with and without intravenous contrast with M GROUP DIRECTOR EXPERIENCE is recommended in one year to document stability. 8.The subcutaneous gas in the left upper chest is a nonspecific finding. Signed: Shoaib Shields MDReport Verif ied Date/Time: 08/31/2019 17:17:48 Reading Location: [facility] Diagnostic Imaging Re ading Room - [place] [address] 112[address] chest with IV [id number] 17:17:00Interface, External Ris In - 08/31/2019 5:19 [...] Verified Date/Time: 08/31/2019 1 7:17:48 Reading Location: [facility] Diagnostic Imaging Reading Room - [place] [address] [facility] [id number] 17:17:00 Interface, External Ris In - 08/31/2019 5:19 PM CDTFINAL REPORT PATIENT ID: [id number] TECHNIQUE: CT of the chest, abdomen, and [...] Verified Date/Time: 08/31/2019 1 7:17:48 Reading Location: [facility] Diagnostic Imaging Reading Room - [place] [address] [facility] Hollywood[facility]IUM2020-03-20 13:26:00* Test Item Value Reference Range Interpretation Comments MAGNESIUM (BEAKER) (test code = 627) 2.2 mg/dL 1.6-2.6 Specimen moderately hemolyzed Boarding Room Fixer ID - [id number] 13:26:00* Test Item Value Reference Range Interpretation Comments POTASSIUM (BEAKER) (test code = 379) 3.6 meq/L 3.5-5.1 Specimen moderately hemolyzed Boarding Room Fixer ID - [id number] 05:33:00* Test Item Value Reference Range Interpretation Comments MAGNESIUM (BEAKER) (test code = 627) 1.9 mg/dL 1.6-2.6 Specimen slightly hemolyzed Boarding Room Fixer ID - JERRI [id number] 05:33:00* Test Item Value Reference Range Interpretation Comments PHOSPHORUS (BEAKER) (test code = 604) 2.2 mg/dL 2.3-4.7 L Specimen slightly hemolyzed Boarding Room Fixer ID - JERRI WBASIC METABOLIC [id number] 05:33:00* Test Item Value Reference Range Interpretation [...] GFR IS NOT APPLICABLE FOR DIALYSIS PATIENTS. Boarding Room Fixer ID - JERRI WCBC W/PLT COUNT & AUTO [id number] 05:23:00* Test Item Value Reference Range Interpretation [...] % 0-1 RAD, CHEST, 1 VIEW, NON [id number] 03:30:00Reason for exam:->respiratory insufficiencyShould this be performed at the bedside?->YesFINAL REPORT RAD, CHEST, 1 VIEW, NON DEPT INDICATION: respiratory insufficiency COMPARISON: Prior day's exam FINDINGS: Portable frontal view of the chest. IMPRESSION: Support Lines: Stable. Lungs and pleura: Unchanged airspace and pleural opacities. No pneumothorax.Heart and mediastinum: Stable contours. Additional findings: None. Signed: Gretta Lemus MDReport Verified Da te/Time: 08/31/2019 03:30:56 Vancomycin level, [id number] 11:24:00* Test Item Value Reference Range Interpretation Comments Vancomycin Tr (test code = 4092-3) 12.4 ug/mL 10-20 DUDLEY (test code = UDDLEY) Boarding Room Fixer ID - AAHAMID Lab Interpretation (test code = 10460-0) [facility] LEVEL, [id number] 11:24:00* Test Item Value Reference Range Interpretation Comments VANCOMYCIN TROUGH (BEAKER) (test code = 522) 12.4 ug/mL 10.0-20.0 Boarding Room Fixer ID - AAHAMIDManual [id number] 09:10:00* Test Item Value Reference Range Interpretation [...] 3438) Adequate DUDLEY (test code = DUDLEY) Boarding Room Fixer ID - [id number] Linwood Swain comments: Slide comments: Lab Interpretation (test code = 31148-0) Abnormal [facility] W/PLT COUNT & AUTO [id number] 09:10:00* Test Item Value Reference Range Interpretation [...] (CELLAVISION)(BEAKER) (test code = 3438) [place] quate Boarding Room Fixer ID - [id number] ID - Kristine Swain comments: Slide comments: MAGNESIUM 2019-08-30 04:52:00* Test Item Value Reference Range Interpretation Comments MAGNESIUM (BEAKER) (test code = 627) 1.9 mg/dL 1.6-2.6 Specimen slightly hemolyzed Boarding Room Fixer ID Mannie GUTHRIE [id number] 04:52:00* Test Item Value Reference Range Interpretation Comments PHOSPHORUS (BEAKER) (test code = 604) 2.8 mg/dL 2.3-4.7 Specimen slightly hemolyzed Boarding Room Fixer ID Mannie GUTHRIE WBASIC METABOLIC [id number] 04:52:00* Test Item Value Reference Range Interpretation [...] GFR IS NOT APPLICABLE FOR DIALYSIS PATIENTS. Boarding Room Fixer ID Mannie GUTHRIE WRAD, CHEST, 1 VIEW, NON [id number] 01:47:00Reason for exam:->respiratory insufficiencyShould this be performed [...] Verified Date/Time: 08/30/2019 01:4 7:09 Lactic acid, [id number] 12:27:00* Test Item Value Reference Range Interpretation Comments Lactate, Venous (test code = 2872) 1.28 mmol/L 0.5-2.2 Specimen slightly hemolyzed DUDLEY (test code = DUDLEY) Boarding Room Fixer ID - JOSE L Pal Lab Interpretation (test code = 87478-2) Normal [facility] HospitalLACTIC ACID, [id number] 12:27:00* Test Item Value Reference Range Interpretation Comments LACTATE BLOOD VENOUS (2) (BEAKER) (test code = 2872) 1.28 mmol/L 0 .50-2.20 Specimen slightly hemolyzed Boarding Room Fixer ID - JOSE L M2D Echo W/Doppler(CW/PW/Color)2019-08-29 12:14:02Ejection FractionSLEH ECHO HEARTLAB MKCKESSON CPACSInterface, External Ris In - 08/29/2019 12:14 PM CDTTransthoracic Echocardiography Report (TTE) Demographics Patient Name GRETTA BYRD Date of Study 08/29/2019 MRN [id number] Gender Male Visit Number [id number] Race Unknown Room Number C824 Num sarath Date of 1935 Referring Physician Belem Restrepo Age 83 year(s) Signs Cleaner Lakhwinder Artis CALISTA Wind Energy Technician Lizz Bah Interpreting Namita Moreno Physician Procedure [...] CO: 4.53 l/min LVOT CI: 2.14 l/min/m^2 [facility] W/PLT COUNT & AUTO [id number] 08:06:00* Test Item Value Reference Range Interpretation [...] (CELLAVISION)(BEAKER) (test code = 3438) Hawa quate Boarding Room Fixer ID - Kristine Swain comments: Slide comments: [id number] 03:52:00* Test Item Value Reference Range Interpretation Comments Procalcitonin (test code = 19238-6) 0.72 ng/mL <0.05 H DUDLEY (test code = DUDLEY) SEPSIS RISK (ng/mL)Low: 0.05-0.50Intermediate: 0.51-2.00High: >=2.01 Lab Interpretation (test code = 78950-9) [id number] 03:52:00* Test Item Value Reference Range Interpretation Comments PROCALCITONIN (BEAKER) (test code = 3036) 0.72 ng/mL <0.05 H SEPSIS RISK (ng/mL)Low: 0.05-0.50Intermediate: 0.51-2.00High: > =2.01RAD, CHEST, 1 VIEW, NON [id number] 01:25:00Reason for exam:->SOBFINAL REPORT CLINICAL INDICATION: Shortness of breath Co mparison: 08/28/2019 The cardiomediastinal contours are stable. The lung volumes remain low. Central pulmonary vascular congestion and bilateral parenchymal and pleural opacities are unchanged. There is no pneumothorax. Signed: Belinda Ravi MDReport Verified Date/Time: 08/29/2019 01:25:11 [id number] 01:14:00* Test Item Value Reference Range Interpretation Comments PHOSPHORUS (BEAKER) (test code = 604) 3.3 mg/dL 2.3-4.7 Boarding Room Fixer ID - [id number] 01:14:00* Test Item Value Reference Range Interpretation Comments MAGNESIUM (BEAKER) (test code = 627) 1.9 mg/dL 1.6-2.6 Boarding Room Fixer ID - DBBASIC METABOLIC [id number] 01:14:00* Test Item Value Reference Range Interpretation [...] L EGFR (BEAKER) (test code = 1092) 73 mL/min/1.73 sq m ESTIMATED GFR IS NOT ACCURATE CREATININE CLEARANCE IN PREDICTING GLOMERULAR FILTRATION RATE. ESTIMATED GFR IS NOT APPLICABLE FOR DIALYSIS PATIENTS. Boarding Room Fixer ID - DBPOC-Blood gases, xwgyicgg4881-18-89 00:47:00* Test Item Value Reference Range Interpretation [...] 8.0 meq/L -2-3 H : TESTED AT [address], [address]: Boarding Room Fixer/Printing Engineer ID = [id number] for RENAE YANG Lab Interpretation (test code = 80851-9) Abnormal [facility]-Calcium rejblid6284-62-88 00:47:00* Test Item Value Reference Range Interpretation Comments POC-Calcium Ionized (test code = 1536) 1.12 mmol/L 1.12-1.27 : TESTED AT [address], [address]: Boarding Room Fixer/Printing Engineer ID = [id number] for RENAE YANG Lab Interpretation (test code = 08805-2) Normal [facility]-Kwlvvxpkw1329-83-72 00:47:00* Test Item Value Reference Range Interpretation Comments POC-Potassium (test code = 1540) 3.6 meq/L 3.6-5.5 : TESTED AT [address], [address]: Boarding Room Fixer/Printing Engineer ID = [id number] for GÉNESIS YANGRICIA Lab Interpretation (test code = 08647-2) Normal [facility]-Iqetiw2973-64-72 00:47:00* Test Item Value Reference Range Interpretation Comments POC-Sodium (test code = 1542) 129 meq/L 135-148 L : TESTED AT [place] [id number] [facility], [address]: Boarding Room Fixer/Printing Engineer ID = [id number] for RENAE YANG Lab Interpretation (test code = 03154-6) Abnormal [facility]-TZHDCVH0232-00-59 00:47:00* Test Item Value Reference Range Interpretation Comments POC-Glucose (test code = 1855) 84 mg/dL 70-110 : TESTED AT [place] [id number] [facility], [address]: Boarding Room Fixer/Printing Engineer ID = [id number] for GÉNESIS YANGRICIA Lab Interpretation (test code = 94325-1) Normal [facility]-PTHCQCMDLB9404-40-83 00:47:00* Test Item Value Reference Range Interpretation Comments POC-Hemoglobin (test code = 1856) 12.9 g/dL 13-16.8 L : TESTED AT [address], [address]: Boarding Room Fixer/Printing Engineer ID = [id number] for GÉNESIS YANGRICIA Lab Interpretation (test code = 67706-4) Abnormal [facility]-RTBRDOTBOL8708-08-30 00:47:00* Test Item Value Reference Range Interpretation Comments POC-Hematocrit (test code = 1857) 38 % 40-50 L : Boarding Room Fixer/Printing Engineer ID = [id number] for GÉNESIS YANGRICIA Lab Interpretation (test code = 26343-7) Abnormal [facility]-BLOOD GASES, IAILYINR0952-01-13 00:47:00* Test Item Value Reference Range Interpretation [...] 8.0 meq/L -2.0-3.0 H : TESTED AT [address], [address]: Boarding Room Fixer/Printing Engineer ID = [id number] for RENAE YANG SRZR-[id number] 00:47:00* Test Item Value Reference Range Interpretation Comments POC-SODIUM (BEAKER) (test code = 1542) 129 meq/L 135-148 L : TESTED AT [address], [address]: Boarding Room Fixer/Printing Engineer ID = [id number] for TREY, RENAE BUOL-[id number] 00:47:00* Test Item Value Reference Range Interpretation Comments POC-POTASSIUM (BEAKER) (test code = 1540) 3.6 meq/L 3.6-5.5 : TESTED AT [address], [address]: Boarding Room Fixer/Printing Engineer ID = [id number] for PATTI YANGIA VSUF-[id number] 00:47:00* Test Item Value Reference Range Interpretation Comments POC-HEMOGLOBIN (BEAKER) (test code = 1856) 12.9 g/dL 13.0-16.8 L : TESTED AT [address], [address]: Boarding Room Fixer/Printing Engineer ID = [id number] for PATTI YANGIA DENZ-FDYPVQBKZZ4606-79-18 00:47:00* Test Item Value Reference Range Interpretation Comments POC-HEMATOCRIT (BEAKER) (test code = 1857) 38 % 40-50 L : Boarding Room Fixer/Printing Engineer ID = [id number] for PATTI YANGIA POCT-CALCIUM GBPOFGU3419-88-01 00:47:00* Test Item Value Reference Range Interpretation Comments POC-CALCIUM IONIZED (BEAKER) (test code = 1536) 1.12 mmol/L 1.12-1 .27 : TESTED AT [address], [address]: Boarding Room Fixer/Printing Engineer ID = [id number] for TREY, RENAE ICSI-[id number] 00:47:00* Test Item Value Reference Range Interpretation Comments POC-GLUCOSE (ANA LAURA) (test code = 1855) 84 mg/dL 70-110 : TESTED AT [facility] [address] [facility], [address]: Boarding Room Fixer/Printing Engineer ID = [id number] for RENAE YANG LACTIC ACID, [id number] 00:34:00* Test Item Value Reference Range Interpretation Comments LACTATE BLOOD VENOUS (2) (ANA LAURA) (test code = 2872) 0.77 mmol/L 0 .50-2.20 Boarding Room Fixer ID - [id number] Echo W/Doppler(CW/PW/Color)2019-08-28 11:46:29Ejection FractionSLEH ECHO HEARTLAB MKCKESSON CPACSInterface, External Ris In - 08/28/2019 11:46 AM CDTTransthoracic Echocardiography Report (TTE) Demographics Patient Name GRETTA BYRD Date of Study 08/28/2019 Gender Male Visit Number [id number] R gerry Unknown Room Number C830 Number Date of 1935 Referring Eduardo arias MD Physician Age 83 year(s) Signs Cleaner Bakari Manuel In terpreting Luis Fairchildi an Fellow IVETT Ozuna Procedure Ty pe [...] LV diastolic fu nction is indeterminate. Signature Electronically signed by Toro Alonso MD([facility] ([place], [place]) physician) on 08/28/2019 11:46 AM Findings Technical Quality: Technically adequate exam. Rhythm/BP [...] CO: 3.23 l/min LVOT CI: 1.52 l/min/m^2 [facility], NON [id number] 04:04:00Reason for exam:->sobFINAL REPORT RAD, CHEST, 1 VIEW, NON DEPT INDICATION: sob COMPARISON: Prior day's exam FINDINGS: Portable frontal view of the chest. IMPRESSION: Lungs and pleura: Unchanged airspace and pleural opacities. No pneumothorax.Heart and mediastinum: Stable contours. 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 Signed: Shala Al Verified Date/Time: 08/28/2019 04:04:39 W/PLT COUNT & AUTO [id number] 03:24:00* Test Item Value Reference Range Interpretation [...] (test code = 2801) 1 % 0-1 [id number] 03:04:00* Test Item Value Reference Range Interpretation Comments MAGNESIUM (BEAKER) (test code = 627) 2.0 mg/dL 1.6-2.6 Boarding Room Fixer ID Mannie HARRISON MBASIC METABOLIC [id number] 03:04:00* Test Item Value Reference Range Interpretation [...] GFR IS NOT APPLICABLE FOR DIALYSIS PATIENTS. Boarding Room Fixer ID Mannie Mosqueraue Dcmh5993-72-15 18:51:00* Test Item Value Reference Range Interpretation Comments Case Report (test code = 104) Surgical Pathology Repor t Case: [id number] Authorizing Provider: Eduardo Shafer, Collected: 08/21/20191955 Ordering Location: [facility] CV Recovery Room 2 Received: 08/22/2019 0856 Pathologist: Miguel Angel Calix MD Specimen: Pericardium DIAGNOSIS (test code = 3220) b5dlrLWvBNZlh8jdWJMamPLbFlJfFkXsSbYnNdegeGPwNEtqubUmVEbec0VmZ3GtTpDnNKukzhDaBXXb TcrwbqorYPCxYMM3dlFgKZRhROrkAMGjKLafGb1wiLYniVcrUfTzXHEcx3fagxNUzycyeOt2x5kzJOJc OvR4lDDvJIhmC6nycxNhlGUjHXZxKXd1bC85TDNfhC 6raDVnVMnfqpQbJlU1LAwmGPUoXfH9KEIsvNOvNIBxG9ckQLGmGWggHMGgZLsneQCtQGW5zHdbb2D6vB XmnMNgtFwnMrPbCkBjQDRJx2IhLCm4xWinE0SbODIqXvH5cZTlMOYmCZqpCHOyZSFwhmF5nY20EEskbq R1zVAuk9Vru51aj855yP8cnJIxFHA7IEWdIAXyhNZa TJPuOLZ3ONDawIWvQ8o6FeAvnHYhZ5F7RbMvkYKzZ1F6UtCnjAAeS8B7RkMlpPFhYOGmiPByFu5hkTMu xWGzoo2xue78UVI2f6LczMtlCEO2ZKA7ViBdDv3nqYDlGNLyWC3gHsVjtOFeZCNoin39bLezNDvbngVt tY7kBbKiZOVdwTSzQUHtTW4gmPWwYLEjvD4xyzkwXW TuGxKptimbVQQaoGjjzrBvWr0qkEzoKJB1AGkuO6yupD4fCuR1OXdkR2jegC0lQBr8EYtexVU9ZWHalW 1vQH8dzmbzn1edJhQfTH9vuflgv2lmYoNaPW3lrjz3u9guNnYtTO7chwzxn6nwUvFrGUohFUFzrbeeBN Khn7RjjsjmLFTte4FoX8YoeVrlF09dxLweC32vPJUr tCspcY5osNumwP0eGrDgVwQnBCwdwUhztZBptozmBPbgsiZfZSgzmzirEMHfMInoV7edUhFjWGUrvSof JMlrc0DyVTLvCHSsKiJjXDIYKHDAGzBKFW2rNIZPD4sIYR3RRRPpyhArHALbTTVRLBMiCL0OGXZXTc5K ATKsFR1UNWBYIBRMUU6PUDlWBAiwJRGJAOKIRvFbYc rGWdsKH0HCZD6TUHHJSDLZTIAQMYQTBUAKBBwMIAMBYMDPW5SSNAYlio25ALR6KfKvg7P8JKH4EWMzZD Lbx9qzDLHygZYaMbQoKgMhOjYsLmmreOHuHLLmDjHku0abu860vPPkj8fiUDYpPvG0qUGbQOWkaIXjF1 32CUTsDNgxs0hjz7ShYYXekRImf9Z7SRSAfhfiyDp2 hPzhD29dt3C7IcsiX9xsBLCtNHRiF8ZqBB2mWIWnStg5BCJ0SDD5GGQfWCCwY9TfJP3dXWXxxTCgBEz6 s8lgpYnjFKMuTAY3j4dgWAqbkjFrMT0xuk7kmLu0i0rkahWtKDGrPKPmxUHSEBSvR8OctCjyZj5twNx2 hNkzXhriLVL8Vtk4GX8jog25iax8hMjhWQHnjjeoEz Z7DZgnWCAuwqlhRHj1XDgqESKavVT1GKLefRJlQ1OmGVNuJJ0dram8CYK5DJsxGLUhCaA3SNOpoGBqXR FvtWbgVXyvm061HYR2AtKtMT2eQ0Oxk6K9jO1pfCBfAWDndTLhYaXxOLXelt2igOPmDIyuk2YwBMM1lv P3aTQhcWDqTFByEaO4CKsxGO5agp38RAVjCPI6ay4w dYPrpGbtnnSigPZiJUdwA3LgRPMsr738ADGeB9BiIYWyg6I4mmBsMnPvAZAgxLE6apY6EQXtFM0olwgc v9yiLNrkYDhoQFZmurV9hgN7VROroBPeW0FpyY5vOQLaLP7zvofmi5teREW3YBbyBQUuGJM0FkQkLHIw s6Jwcdh2MsMfq5UfxPMcVDinZ00eo209MZGiugYdZ1 mdiTWlwsjwbSDzjsdyXEwyxdM6XNIhDSfaicluATNcTVbjV0hlTzCtFZKzfJkeVPknu4VdVPQuMRCiZo PjhGAdUISkAes3XGAksWNkJBZcNmHyK2qgiyulElTOAUZva7dkL9qzkEVYfXUxT0NeQTrdfkRfGUblQQ zpFCD3UKF2Rd59ZeP4RJLgkx08 CPT Code(s) (test code = 3357) f6lpuXZbLSNnwPMlGeKmIFHmDVJhu8vfQHAqqDHoUjKjUxDdHcLfApmyuEQzKFLjPzQmv7rrk936gIQp s4tiWGXaDeD5qUBwULZizMFbZ510GXMdUGrmu1nct4XwTNAvfGVrr5K9UULCjatxxQb2mFfmK59se0E2 KcymT7apXHLwFNUeM9UhFF2fKRRpBfi6JSU1LLA8BC ErGWDnS7HzMR5uVNQpjYTbITu2z2jpmGxaQHXxLDR5u4gwHDjqliNyNA3qhi1bjWu0m6nghdGkOGFoIY HsoSMATTArS2VdwCjfWq9exIj2vZzlLmowUQU7Xiw0IN5ieg84skr7lAwaNVIbmxfzYqX9IVzyOKBfoy ijZIj6IJkrTCVydHddIUzqQNUuvrvxQNkpTMHlqLjb XWjoPUUrNputKOjpVUXrJJM1TKczr684QIF6JIpnd7opz9ntrHCmYpg1RJRvOsKdMmuyXSseq5Lpt8ml EHOirh3hOUA2dXWkjKdsb9B4oXOuOCNjdXRbjeZoJPAmEnH7EZjdSD1juq65PYXxXWX2ja4maAPefPno phNhpMOpXXlbA2LyTRUgo664WTJeS6JhSQSpw7K4cv QdToObJXDejFD4viZ7BRUaHEc8rHMlroP9yaWqlHYkM3zldO83EuLgjMFzQ3EifE19UyTqqXOfP6MnaE 64TzPppAPnQ2CxjU17NlYxwJXtGTKzyKPsGv4chLTswDHau3UtaJArASboF14sg708UBIoehFdJ5lbrQ DaqvkjvECcyceaRBhxscN1SNYaGWYhXYakNJNjTSOp ZtOzaYNsVwMiHqDylIkmdFsxJThiOrHmAHXbCCiuB3mhBdSuZtXbGRL8LGNeAHhpRSD6 CLINICAL HISTORY (test code = 3356) n5mnqIUtPDBjbELvGwXuRRJcGSVoy5ffZYZaeHRxBgJbBwKjItVhHxsnuYZfBUCgTwEdd5ngw206eOYr o5ubITYmMqY4fYNbZSMthLEmY933b2izf9ddlzXuzJC4FYOnNOY3CKfoitBtgbH4JKeejVRtPtE2KRcz bmXwXZogftNkhkEyRji5TQLaR240QLP4tMgap1acCJ U9UQAfUJTtCmOwYi0puSBeU247ZVIcLAUSQAUpzBx5NTLohiWupcPsnOXTp154D820n8dtFHTnsbQykV nAiqtzx6hzF230CMKveLAvzvTiSpEmYPTabLSsdOR8HPKcJC2fhrtuYdKrWO0bmwymIuXbFT0hifr5Nh VnNG0reuqlBlTnVXrzSWDtsoaxSWDzd3FkmjavON6j T2Ram1V1wJ1ucZDhAFAqgLZzJrSePLPulz8vdMLwIWpba2AvGZA9okW8oVLheFNiBOFsTD59Abekq2Zg CggtSPD5BGTpcyIub6Stw0jeOpPkzlYlY8grE0FbTTQmHMVfUJFvPmJbrpXlk1Cwd3OgkNVbaWd6s9fd RFOpOHDopUfmq8doBZD8FSOvL9S2rPPon6tuNAvyNQ ZmyPJ7uasrPCtrCIYyryM5wkgpGXvuOEWkiPO2wyooTGiuCERhGqL8fwuhBOgjAISbOPJ1WAumq724TZ W0OHenKqkcNBucTVRychSdggVkaUheQFBaQMFqPHnlBUSzRXaqGNLcVDAdNlNfxKjdcEatjO7jFyXtYx GlDAoyJE5oYXHvZ2vzqWQiATBqFOGxV0fpAgVapQ1c jYzhUBdzkmCxFPJqnjmsKKXtaWCoMEMrZoYgqJ8tJUbjAOO8 SPECIMEN SOURCE (test code = 3377) k4pldOUvWXZohJCwDdGlLOAgEWBns1uhOVWqiOKiDjByHnClFkVuAlocsJYyHBGySwGhk1rla503bBAe x8adUDXlVeP1fLZzOJJawIZnQ564e8qvk8yzmjYbqQR8QEAjJII7ROpgodWlwmB9QJmpxIMsPcB3HIpp vsYkLTkflaDzwhGrFor8LNQlO302AWW5sWffm8pwGZ P7KUJkPGXfSoXeQl2pkGTaG493KEEdFRGIMTKsxSy6GBQkpsEqmlVxxKXDt021V791s3ilXCXraaLdvS eEntxld0ypC996YEWnxPFzanBwLeSeISBrnWXmmUU7ABNvBV1vetbdFmOpBW7bwrxyTnZrTE1qfei7Aw XuJK8dmmiyKpLzMAuhUGYbygedFEThf6ZwpwsqYW8c C5Vlp5Q6xV8gmXLnBYJxuGMxRmNbYSOufa2uaRCiDDtmz4SiDJF6ebJ0dLFwnIBqQNGrNL92Qfukh8Nm RfsvOAZ1WUAysqFzk3Psf8dsSdIsxoLjU1vpU3GdXKUqJOBvFQWaLyXrqeFyn1Qvo7QbaUDtqIr6i6tr CDRqDMBygOiez0zaVUM5INMwB0S6tQKwh4sgPPvpHG DjaUG8ndqtHTtoNFGhtrR8ywppGPvyJZIcdYQ8eedsCEcvIHHpNbR2eswvRNxdVVNnJOX7JNbhk815UZ G0KJujSvhwTOnwXYLsknDdmfYbeHojGBEaBWPmXTnzHTRnAWumHFVwBQVjYuJheKdyxAuywD2oIfArAi LdCDolYN9lGRHsM5znuBJtIBTnDSEbW9xtZaItqV4uhKydBKlennAdVVJsofygQESmwDEgJKahDED5 GROSS DESCRIPTION (test code = 3366) o7fidMYnLUEngMOuXcWvJIDsJBTbt5olOLTznKKoEqWdJyWnQcBsXmwpxKSlBSJiHdOjr8kjr614xUNq a3fzEAUePsW0jCBsYUEohPKzJ086x9zre6fgswRiwIC7AICkXRB1BNinetQtwtE2XFwwyEQpUbV7OJff evDaFMpdavBhgeLpDlt7BQTvQ884EGZ2eKkbf1xwLE N3STKvQZCnTfStNx9jmWVzR952FTAgNMYYCJOmxJk7TRWauhQrmmCcqVFUd118H734l7isPTMsztYaaK vRqofka3olA186ASDqpMOpuvQiGlVuUSNyoPHrjYN5GASjPL5tncujOnOkYD7ozaszTqCrFY0jnef3Yv VdKK1rrzifFzKbHDgsOJIoifdbHCVyi1UhvhznJJ3s X5Wev1P7cB3jhRWyOXEldXFdSzLzOAXsps6utGQzJSliu2VkSBL1nnT2nUXhgMInGVPzFU49Czdxu5Yf YhpqRQA8WMFenmSeq0Bow8veJbXendQsK3oxB9XcPQVzKGGeAMGmLxBaohQgq0Ggx3NjnOOpaGq7e6yq NRJfBFRehZkjs1suLRF3CURjQ3B7pTUwl3wlLWgbRY DrkSF1mzzfAByyOMSahaF9edtvCYowDCIwoKB4sgasZWrdBITeAtR6yokxYGgnACRePFZ2TWqrp022RT W6GUlxXxynWJioREIoatAkhiWclRjxZZDqQTZgKSozGQIqHMffCHVcVQWnKyTtgHNohGYgQJIkFRPtNK luXGYwXGZzMjBcbGFuZzEwMzNcaGljaFxmMFxkYmNo OFYnKEhvS8phIhIvUvFtTTYCGUAyzRPwQIQebkChbBHtFJEbaDBvKHxjzPeofUsxDDRoaXowxrUpwcBp KT6yNNGdU5Zkn5Ekq71msaFyUcKrZNAvEGZtcAZmrEHxajXmaL3rLGUhOZX9p41mlJNkPYp0gIYiPSAz AMRarpNxJeZqMDBqsVryzkYoa3U3VXZzw1V4KCHaR3 orUHvohZvmQfGrWSdoJJ09RZfsHY2zPHMwKwEBrIGjnMHaQ8RvGBTao9P0NKLztbVkwHVhfeplPXB9BY HkVDXaOQUwsmRufx1hakRxUZRdf53vTDUiVVSiRAQxvMerhCSnWhUWwRHbr7YiP1ekIE7auPMpGV12cW UgzYesb7UeeKr2rXJdXJmzFKCfIrMWVc9anqVtqYFuxP== MICROSCOPIC DESCRIPTION (test code = 3371) t4nwvNHmJZBjxPBoBpHmHHOmTHDuv8gsIBHhyBPtYdQpAoJxJzTcFytdeDJaQKArQzXfg6xuk491eSXh e4dbWRVhWmT3wJUkEAQxqTYeA703y8yan3wwrsIjwYI9CLOnWRQ9KQxldoAoauN8KLwxeWUnTnL7BCzq noFyAIuzuvFcvqReJmd1KVQtV229XVN6hZpzt3lzHK Y3AZLqYSShBvUcDq7xaAMxW800WADrNEKEFEYyhGk1CEPebrLctbIwjNQOs584A738y9wxKCOeuuCjcC pVmrlqm3ceT945MDCdaWAccqZcRtQbLQVlpQDawVM7IKUeTR9nqxhhXfUhZM7zzffrUnNwTJ8jdud3Od PbCO0bfrfvUvCjGWutZCNzeepcBWYip4DellvkMW2j F8Mno5D4pN5soYFhTHQfbIIzGePnHODsia0mtAUaVRypc7WoUBX6gmJ6vWVjaYDfVNKuCR82Bdlzm9Jy MurkRAB3BWFfouCgj9Oft9yjYzCgbqMgJ8zgC0PxZCTfKHHkQMHrHoFrjwMzl5Kox8HepFXlpQs8n1vd LAQxVOLghZcvp7jkBHT7YBSwM0L5xJGcz7kdYTpfVB XqgNQ5dexhODwqSEQkxaQ7ghjoXPcmCTQssFL5natbKKbpXQDiDkO5pvneFBaqNPZwAHN1QBnfe904LT Z0GNegPlrbLBglZOFluuLyxvMpvMkaFQUyZCVpKAxxTJYlUWfjSZHdJPWgMsUfnPbqaEtmpA1oStZePi KgUOzsBT5zEFWsZ9rjjLNxQFFkYVMdB4nrBcFscI6rsPhvBQyjaxIoZPTppuBhcd3zLD0cnWSrvM== Gross assessment was performed at (test code = 2777) [facility], Department of Pathology, [address] [place] [address], Technical component was performed at (test code = 2778 ) [facility], Department of Pathology, [address] [place], [place] [address], Professional component was performed at (test code = 2 779) [facility], Department of Pathology, [address] [place] [address], [facility] Hollywood[facility] [id number] 18:51:00Surgical Pathology Report Case: [id number] Authorizing Provider: Eduardo Shafer, Collected: 08/21/2019 Vladimir Ordering Location: [facility] CV Recovery Room 2 Received: 08/22/2019 0856 Pathologist: Miguel Angel Calix MD Specimen: Pericardium PERICARDIUM, EXCISION- ACUTE AND CHRONIC INFLAMMATION WITH ADHERENT FIBRINOUS MATERIAL AND REACTIVE CHANGES Signing Pathologist Direct Phone Line: [phone] signed by Miguel Angel Calix MD on 08/27/2019 at 6:51 [id number] effusion Pericardium Received fresh label ed with the patient's name, accession number and "pericardium" are two irregular pieces of red-pink soft tissue aggregating 2 x 1.5 x 0.2 cm. The larger tissue is quadrisected, and no gross lesions are identified. The specimen is entirely s ubmitted in A1. CG/ew Performed.[facility], Department of Pathology, [address] [place] [id number], [facility], [address] [place] [phone], [facility], [facility], [address] [place] [id number], MVJNUDYJM CULTURE 2019-08-27 18:16:00* Test Item Value Reference Range Interpretation Comments CULTURE (BEAKER) (test code = 1095) No anaerobes isolated ANAEROBIC [id number] 18:16:00* Test Item Value Reference Range Interpretation Comments CULTURE (BEAKER) (test code = 1095) No anaerobes isolated Anaerobic [id number] 18:14:00* Test Item Value Reference Range Interpretation Comments Result (test code = 6463-4) No anaerobes isolated [facility] [id number] 18:14:00* Test Item Value Reference Range Interpretation Comments CULTURE (BEAKER) (test code = 1095) No anaerobes isolated RAD, CHEST, 1 VIEW, NON [id number] 14:10:00Reason for exam:->evalaute heart functionFINAL REPORT History: [...] cardiac shadow is partially obscured. Signed: Corazon Marcial MDReport Verified Date/Time: 08/27/2019 14:10:25 Reading Location: [facility] Radiology Reading Room [id number] 13:38:00* Test Item Value Reference Range Interpretation Comments MAGNESIUM (BEAKER) (test code = 627) 2.2 mg/dL 1.6-2.6 Boarding Room Fixer ID - KATELYN [id number] 06:07:00* Test Item Value Reference Range Interpretation Comments MAGNESIUM (BEAKER) (test code = 627) 2.0 mg/dL 1.6-2.6 Boarding Room Fixer ID - HUNTER MBASIC METABOLIC [id number] 06:07:00* Test Item Value Reference Range Interpretation [...] GFR IS NOT APPLICABLE FOR DIALYSIS PATIENTS. Boarding Room Fixer ID - HUNTER MCBC W/PLT COUNT & AUTO [id number] 05:36:00* Test Item Value Reference Range Interpretation [...] code = 2801) 1 % 0-1 BLOOD [id number] 22:01:00* Test Item Value Reference Range Interpretation Comments CULTURE (BEAKER) (test code = 1095) No growth in 5 days BLOOD [id number] 19:00:00* Test Item Value Reference Range Interpretation Comments CULTURE (BEAKER) (test code = 1095) No growth in 5 days [id number] 18:56:00* Test Item Value Reference Range Interpretation Comments POTASSIUM (BEAKER) (test code = 379) 3.5 meq/L 3.5-5.1 Boarding Room Fixer ID - [id number] 18:56:00* Test Item Value Reference Range Interpretation Comments MAGNESIUM (BEAKER) (test code = 627) 2.0 mg/dL 1.6-2.6 Boarding Room Fixer ID - BSCALCIUM, [id number] 18:21:00* Test Item Value Reference Range Interpretation Comments CALCIUM IONIZED (BEAKER) (test code = 698) 1.12 mmol/L 1.12-1.27 PH, BLOOD (BEAKER) (test code = 1810) 7.46 Check serum Ionized Calcium level after 4 hours after IV Calcium replacement.CBC W/PLT COUNT & AUTO [id number] 06:42:00* Test Item Value Reference Range Interpretation [...] (test code = 2801) 1 % 0-1 [id number] 05:55:00* Test Item Value Reference Range Interpretation Comments PHOSPHORUS (BEAKER) (test code = 604) 3.1 mg/dL 2.3-4.7 Boarding Room Fixer ID - HUNTER [id number] 05:55:00* Test Item Value Reference Range Interpretation Comments MAGNESIUM (BEAKER) (test code = 627) 2.0 mg/dL 1.6-2.6 Boarding Room Fixer ID - HUNTER MBASIC METABOLIC [id number] 05:55:00* Test Item Value Reference Range Interpretation [...] GFR IS NOT APPLICABLE FOR DIALYSIS PATIENTS. Boarding Room Fixer HUSSEIN HARRISON [id number] 19:45:00* Test Item Value Reference Range Interpretation Comments MAGNESIUM (BEAKER) (test code = 627) 2.0 mg/dL 1.6-2.6 Specimen slightly hemolyzed Boarding Room Fixer HUSSEIN - ALEX EBASIC METABOLIC [id number] 18:22:00* Test Item Value Reference Range Interpretation [...] GFR IS NOT APPLICABLE FOR DIALYSIS PATIENTS. Boarding Room Fixer ID - ALEX EOxygen saturation, [id number] 17:54:00* Test Item Value Reference Range Interpretation Comments O2 Saturation (Measured) (test code = 29159-7) 61.5 % [facility] [id number] 17:54:00* Test Item Value Reference Range Interpretation Comments O2 SATURATION (MEASURED) (BEAKER) (test code = 1455) 61.5 % OXYGEN SATURATION, [id number] 09:45:00* Test Item Value Reference Range Interpretation Comments O2 SATURATION (MEASURED) (BEAKER) (test code = 1455) 64.0 % Sputum Culture + Gram [id number] 09:20:00* Test Item Value Reference Range Interpretation Comments Result (test code = 6463-4) No growth Gram Stain Result (test code = 1123) No organisms seen [facility] [id number] 09:20:00* Test Item Value Reference Range Interpretation Comments CULTURE (BEAKER) (test code = 1095) No growth GRAM STAIN RESULT (BEAKER) (test code = 1123) 3+ White blood cells seen GRAM STAIN RESULT (BEAKER) (test code = 40719) 15-20 epithelial adelina ls GRAM STAIN RESULT (BEAKER) (test code = 02018) No organisms seen [id number] 06:15:00* Test Item Value Reference Range Interpretation Comments PHOSPHORUS (BEAKER) (test code = 604) 3.6 mg/dL 2.3-4.7 Boarding Room Fixer ID - HUNTER [id number] 06:15:00* Test Item Value Reference Range Interpretation Comments MAGNESIUM (BEAKER) (test code = 627) 2.2 mg/dL 1.6-2.6 Boarding Room Fixer ID - HUNTER MBASIC METABOLIC [id number] 06:15:00* Test Item Value Reference Range Interpretation [...] GFR IS NOT APPLICABLE FOR DIALYSIS PATIENTS. Boarding Room Fixer ID - HUNTER MCBC W/PLT COUNT & AUTO [id number] 05:56:00* Test Item Value Reference Range Interpretation [...] (test code = 2801) 1 % 0-1 [id number] 00:38:00* Test Item Value Reference Range Interpretation Comments PHOSPHORUS (BEAKER) (test code = 604) 1.9 mg/dL 2.3-4.7 L Boarding Room Fixer ID - TEETEE [id number] 00:38:00* Test Item Value Reference Range Interpretation Comments MAGNESIUM (BEAKER) (test code = 627) 1.8 mg/dL 1.6-2.6 Boarding Room Fixer ID - TEETEE BBASIC METABOLIC [id number] 00:38:00* Test Item Value Reference Range Interpretation [...] GFR IS NOT APPLICABLE FOR DIALYSIS PATIENTS. Boarding Room Fixer ID - TEETEE BCBC W/PLT COUNT & AUTO [id number] 23:40:00* Test Item Value Reference Range Interpretation [...] = 2801) 1 % 0-1 BASIC METABOLIC [id number] 18:13:00* Test Item Value Reference Range Interpretation [...] GFR IS NOT APPLICABLE FOR DIALYSIS PATIENTS. Boarding Room Fixer ID - NTPCBC W/PLT COUNT & AUTO [id number] 17:53:00* Test Item Value Reference Range Interpretation [...] = 2801) 0 % 0-1 OXYGEN SATURATION, [id number] 17:43:00* Test Item Value Reference Range Interpretation Comments O2 SATURATION (MEASURED) (BEAKER) (test code = 1455) 46.9 % Surgically obtained culture + gram [id number] 09:52:00* Test Item Value Reference Range Interpretation Comments Result (test code = 6463-4) No growth Gram Stain Result (test code = 1123) No organisms seen [facility]AM [id number] 09:52:00* Test Item Value Reference Range Interpretation Comments CULTURE (BEAKER) (test code = 1095) No growth GRAM STAIN RESULT (BEAKER) (test code = 1123) <1+ White blood cells seen GRAM STAIN RESULT (BEAKER) (test code = 18730) No organisms seen Body fluid culture + gram [id number] 09:51:00* Test Item Value Reference Range Interpretation Comments Result (test code = 6463-4) No growth Gram Stain Result (test code = 1123) No organisms seen [facility]AM [id number] 09:51:00 * Test Item Value Reference Range Interpretation Comments CULTURE (BEAKER) (test code = 1095) No growth GRAM STAIN RESULT (BEAKER) (test code = 1123) 2+ White blood cells seen GRAM STAIN RESULT (BEAKER) (test code = 45853) No organisms seen BODY FLUID CULTURE + GRAM [id number] 09:51:00* Test Item Value Reference Range Interpretation Comments CULTURE (BEAKER) (test code = 1095) No growth GRAM STAIN RESULT (BEAKER) (test code = 1123) <1+ White blood cells seen GRAM STAIN RESULT (BEAKER) (test code = 87885) No organisms seen BASIC METABOLIC [id number] 09:38:00* Test Item Value Reference Range Interpretation [...] GFR IS NOT APPLICABLE FOR DIALYSIS PATIENTS. Boarding Room Fixer ID - NTPCBC W/PLT COUNT & AUTO [id number] 09:34:00* Test Item Value Reference Range Interpretation [...] = 2801) 1 % 0-1 Lactic Acid, [id number] 09:30:00* Test Item Value Reference Range Interpretation Comments Lactate, Art (test code = 2874) 0.8 mmol/L 0.5-2.2 DUDLEY (test code = DUDLEY) Boarding Room Fixer ID - NTP Lab Interpretation (test code = 48129-7) [facility] [id number] 09:30:00* Test Item Value Reference Range Interpretation Comments LACTATE BLOOD ARTERIAL (2) (BEAKER) (test code = 2874) 0.8 mmol/L 0.5-2.2 Boarding Room Fixer ID - NTPBLOOD GAS, [id number] 09:15:00* Test Item Value Reference Range Interpretation [...] 28.0 % RAD, CHEST, 1 VIEW, NON [id number] 04:43:00Reason for exam:->sob, fever. new admitFINAL REPORT RAD, CHEST, 1 VIEW, NON DEPT INDICATION: sob, fever. new admit COMPARISON: Prior day's exam FINDINGS: Portable frontal view of the chest. IMPRESSION: Support Lines: Stable. Lungs and pleura: Unchanged airspace and pleural opacities. No pneumothorax.Heart and mediastinum: Stable contours. Additional findings: Changed extensive subcutaneous emphysema in the left neck and chest wall. Signed: [facility] Verified Date/Time: 08/24/2019 04:43:10 W/PLT COUNT & AUTO [id number] 01:45:00* Test Item Value Reference Range Interpretation [...] (test code = 2801) 1 % 0-1 [id number] 01:39:00* Test Item Value Reference Range Interpretation Comments MAGNESIUM (BEAKER) (test code = 627) 2.2 mg/dL 1.6-2.6 Boarding Room Fixer ID - DBBASIC METABOLIC [id number] 01:39:00* Test Item Value Reference Range Interpretation [...] GFR IS NOT APPLICABLE FOR DIALYSIS PATIENTS. Boarding Room Fixer ID - DBLACTIC ACID, [id number] 01:29:00* Test Item Value Reference Range Interpretation Comments LACTATE BLOOD ARTERIAL (2) (BEAKER) (test code = 2874) 1.0 mmol/L 0.5-2.2 Boarding Room Fixer ID - DBBLOOD GAS, [id number] 01:20:00* Test Item Value Reference Range Interpretation [...] code = 1819) 28.0 % OXYGEN SATURATION, [id number] 01:18:00* Test Item Value Reference Range Interpretation Comments O2 SATURATION (MEASURED) (BEAKER) (test code = 1455) 58.6 % BASIC METABOLIC [id number] 18:02:00* Test Item Value Reference Range Interpretation [...] GFR IS NOT APPLICABLE FOR DIALYSIS PATIENTS. Boarding Room Fixer ID - DBOXYGEN SATURATION, [id number] 17:28:00* Test Item Value Reference Range Interpretation Comments O2 SATURATION (MEASURED) (BEAKER) (test code = 1455) 62.1 % LACTIC ACID, [id number] 15:49:00* Test Item Value Reference Range Interpretation Comments LACTATE BLOOD ARTERIAL (2) (BEAKER) (test code = 2874) 1.1 mmol/L 0.5-2.2 Specimen slightly hemolyzed Boarding Room Fixer ID - SHANNAN CCBC W/PLT COUNT & AUTO [id number] 15:30:00* Test Item Value Reference Range Interpretation [...] = 2801) 1 % 0-1 BLOOD GAS, [id number] 15:28:00* Test Item Value Reference Range Interpretation [...] (BEAKER) (test code = 1818) 37.0 C [id number] 15:22:00Medical Cytology Report Case: [id number] Authorizing Provider: Eduardo Shafer, Collected: 08/21/20191948 Ordering Location: [facility] CV Recovery Room 2 Received: 08/22/2019 0933 Pathologist: Bryon Brown MD Specimen: Pleural, Pleural fluid PLEURAL FLUID (CYTOSPINS AND CELL BLOCK): - NEGATIVE FOR MALIGNANCY - REACTIVE MESOTHELIAL CELLS PRESENT (SEE COMMENT) Signing Pathologist Direct Phone Line: [phone] signed by Bryon Brown MD on 08/23/2019 at 3:22 PMCytospins and cell block sections show scattered mesothelial cells with reactive atypia in a background of mixed inflammatory cells (predominantly neutrophils) and macrophages. Immunostains performed on cell block sections show the mesothelial cells are positive for calretinin, CK7, and CAM5.2, while MOC31 is predominantly negative. The findings are supportive of the above diagnosis. 42360, 10463, 59516, 72287 x 3Pleural effusion, history of prostate cancerPLEURAL EKKJR923 mls jordy fluid; 4 cytospins, cell blockCollected: [id number]: [id number] interpretation of this case included the use of immunohistochemistry or special stains.Control Slides Examined: In-house known positive controls were evaluated along with the test tissue. These contr ol slides run alongside of the patients sample show appropriate staining. Notereader al positive and negative controls when available are evaluated Immunohistochemis try technical testing was performed at [facility], Patholo gy Laboratory where it was developed [...] to perform high complexi ty clinical laboratory testing.[facility], Department of P athology, [address] [place] [address], [facility] of [facility], [address] [place] [address] 77 030, [facility], [facility] of [facility], [address] [place] [address], [id number] 15:01:00* Test Item Value Reference Range Interpretation Comments Case Report (test code = 104) Medical Cytology Report Case: [id number] Authorizing Provider: Eduardo Shafer, Collected: 08/21/20192014 Ordering Location: [facility] CV Recovery Room 2 Received: 08/22/201913 Pathologist: Bryon Brown MD Specimen: Pericardial DIAGNOSIS (test code = 3220) h4liyRNwKWFtn2tyUNOfpVOyMwFkYqDsWtAaBlxroGWpABmjfoOvDHmyj5AzT7PxSqRwDOvrtsRiMFTi GcrkfzcdUXBcIQU3pqNzDGMaKHsxEDLxGMqlLs8qkKTrmBwoXfEiFSGyq9ugdfIHbxrbySh4o5taQGUk FjB2rKFwMVvaW5fvdaCvpYLlVXWjYLv2eK11RCLknV 3ysXEnIHhgtyNcSfJ9LInmJJRjLgI9SDFywFDmDVWhZ6paXQXtRQaeYFPoRMcerSYvGTG0iXmse2T9oB LvhVYatEuwJaFzMgHbRCNZz8AePSe8oRcpP4YbYZUjDfV4lPXaIILwRCbjHAKqUFFgybZ6vR70OLbweu Z9uCWkh6Tqw80hy325xU8iyZPkOFT7DGPxGHIbgNHq RSWcHJM0ONEshTSdW1k4LsKuuNLdD2U0ArWahQVeX0V9ZbTibDVxU1U1DeWrmUIeFMIwxYXaYo7uxLQo cBYxov6hmi51TQG1o5XhnAjrNJJ8MIS0ImQsQp6flELeNRJbHJ0aJkJzoQSrZAYnlt27oStxFVddiiGx kL4xHoDfXCJmsNBbSGOuKT9tpXVgWDHhsP7sjmhmYW NyRpTmskfjLXVbxIpyklUsRk9kiSirCQF0LByjG4csuK1gGgH8RAaoG8agxR5aYRk7WJhvbPC6OPHtaM 6qND9kcldbj6cpVtOdTS0alpmdr0hmHwNiXJ5kdyi5b2tpHyLlVU1jludzu3zbOrKyEHxqNAFgnjotVU Pct4ZlmiimZAMhe2DkI6QcmEfmH76rlTgrE08gKAKe pIezlW2azWmuqL0wQqJxHhNbCHddsDfotUBjjbwjNJuzfqChDCxjtbvkGEIxEQqnJ2pnCwIlCDJsmFor EIhpn8AsPFIxYCEkXdMdNXUIFTFQZwHHKJusLzhGJDNlGAQQNR8NMDkVFtSQZcGyR6XJRNSDED4XOes1 PBddiyAqVUAeCLRENUdGHJcMYRYMN9UwEXJHFJlQBV 7YSSGpO5YWGSULSN6QUeZmISWzcvdwFRL0m6rgcZAcBLVzuYFhJAFtZRnjwzYbUMHgDecxhmxrYRAyMX Y3uvHfDRPrJJbyOORyXMbzIi2msJFdrUgqFyFmQWVcr9qibqHVoippqNt9t1rjGVAnXtD3fFYiIImrG0 islpXttSHoRKXzTYg1pG83OANpsU1tbAKvGUjiqxEe ObK7KWaxWRWfDtO2YEDueLLwJLLiJ7gxOEIoPMulDCKgARqmsGUmZWA2xXxky4V4ePBevQFxrIsfZnJu VlJeHpBKf4DgUUm4tTewT7EwHDNaMiE9uBXnZXQoIRryMCHbLIBwhqO2cT51PYjunjB0mCOmb9Ydc58k y928rO5syAKoWPM1TUYmZPEveIBbSKXiUBF2NCWzmZ RpF3kxXMWxCY3glskaMNlkAQryGKZwnZC4FTPrnPUbQ7SkHRJqUPtoJAIbyqg7XlGmVd4cwSAseSbbTU tuv1ouu6srmMCzEgy5FKZrFkLdWxaxAHzkl1Hly7ipIFGbxd4wCAO3bIOshSncv1D3qEBeDAXqwEJgSF WtFB5yjVMkMCBuqI7dzmvsKUEsZkMmntfuXPNouQhn jzSaMj4dgFhcTOU6PBnvN4dyoX8mKkN9ITjhL1fuyQ5aZHf5IBdcECLssGK1qtM4OCLnxCMbC7GciC3u RWXqRO6wmyk2z7jcQAZ1NAtuGZHpFyH0ciU5MCLldINzSJSumPjpCWpfp074HXI2XiEdMFKvu9McK0Rj nZceJ11dqMogK10mHULakXlezS8uoGmleB9lRlBfOc GuGVsxvUnaQS6oKCNhY0fbsADqLYHuSKNcF8cePaOpdS5psUlkAEvxxuAtPOXoLgv7NBPlmSAxIOJzNr p5MMMrPCZnZ79gdyabFMP1mR8ks2mzi5CtREvwBZL5SHRrh32qVFsfmjN1WLmkIz0dJuOtGRM6ERrwNS J9fQ== COMMENT (test code = 3359) w8errZZeOKWixPJnLpKwPRUyYCOhk3lbNRUnvMJkKvGcClMqDzHlDxnioPDtPOSjBzSzh0vcl733zIWp i7rzNRFrEpH7bELtYYPmbWLhI935v6vqt9dgzgMjbQM7TSOlHPN8SQdqefBjuxA3UCfzlXInBsN6QHok npTuMAcqraAcisUnXly0ZTZsY633LWP2qBxtx4dnWX C3NNMqVMPnUmJxQn3cdIXfU570HUEjYPTLBKUzkJq1NHQcewBrjvGkaWOWj699T040h9zyTWIyqgJipB uHdhybx6azP648CQLcdFSbweRcFjLtESFouAGisBH0XASwQZ7wtgbtDiYpQQ7fydmdFaAiJP9lype1Ep NkHU1cdejkJbDhSIqkUOUfbskhRKJgg4OieajyLP9h N2Toe7D0bI7skPEhGIVvsAMySmPlYGNrmb7zvEVoMVhur9UnPIY7kyA2gWLnzGQoTDZkZG74Ykyqj0Qv AbqhDDX9XKFihfFnz2Pka2woVrLyqwSoK7rdY7BcTWCaRQLnPOLiVqVhnzRwe2Lml8MhhCRieNf4k3uh VZWbJGGmxSzba2xdCIK7QJAwK2G6dELzr7mnJMuvWQ WflAQ2ebmkVLxoRKPckhZ4wlzuWFwvDVHvzZR9ibpsRJmgQVFnQeV1ibwcXAqtQIMiSLO6DSyeo484AL C9PZyoUvxlZEfaSSSkdnArotUckWegJUZeIMDnBMtnZLShSGfeRMJzAFReUjQzjJjfwShgfH8yItWbYg WiIGbdIL3tXFXxV7wrvUVnJQImKCQkG3ahBwYvuZ5b yEssCRldyqKzMSH7uY9cgPizrvQfduGhL3QtpRGoeL6hbrKlJBZ6tZ8cqgGdjZ19AZGzZIR7IVExNNHd LCVmoCdtiVkekEHeSKcudkO9bATqQHDkUUC5zMSpNMHlCS1hIYNhIIowcWDgu3A7KRjwueLgTXOyc5Qs EYJpf49eI6BaqSWsaK3uwxKnWVT6mP1bjvDugE42WJ VoVAQzMAKyqOiitJvcnUPlXXicucThtvLstV8gbUCerxEnQc8wZSQbwGNqeVnpaV8nEUHAOsGiewCiJ9 CCYX7sHCF1xKfhTLXEN3BjPHFlhvLtuhGuh72znxDbnBd3ZG8cL8M7xMIjRjUHuXHnEpmyUYdlL3DxEA JoLYI2tRHshbRaqaPen7YiaRgtFMNct7BrCCLrYSbxd7Cdjw8tSQIfmx3= CPT Code(s) (test code = 3357) g4qzkIRcMAEspGRqYjMoJGPsPIMlf7wuJAImoSXcLeWlSnUjSrIdGutsmEKrQMLfGkUgc4ddo520rRRu g9stIXBmPvZ9qVMpABHbuGQxN543TQDoPFpak9xym4FaJPAavGEao9F8DSFNoodnjFw9bQwjQ05dp0U3 FljfY5mcHTLzBFDiH1OgLW7uNOGsObz9GLN4VNB7PD BjEVQwH5XmLC9dFSKabYThYYy5c0yweSitJUYmAWS5h8zxBGssmvHmXL3myx6mzTm0t7puskTwSARbUR DgbLXZVKZxF5KxeTyvNm2bnFc8aBjxFdksZBK2Bui5QU6xmw56afj0cFgmBLUltizuDyW3WLvuKZAkhn nmSQg1LNyyAAUjgGuoRMppHHAoxjvxXXxvVQTvpCjf WDvfHVJvDjbkPXimVNSrMIF2UKuhe697LQV9NZbhd5tdd8aeiIGcHks2EVCmWqZkKqotYToko0Aqq9ft DBTaau4bIRN2wMSbwQbrl1K9kUFlPAEamAEhznKcOWBfVzS4NAkzHJ5zhn53PUOcYTG7nk9baIPfaVei iwOauXJcZIqfO6RqEIXwe038AVZeB2TnCGFqg0C0bb MpHqDfHQBvnIX9duT7WOCrRWy3qUQmttO1boWhuHDmG3hacH08JyQoyNXgI3AjhD93DcYiyWTpN0HkeN 99HdSijJMpV8YglA19VuVogKTeXZOycGFuAt4soAQdgOUzv1QqoXAsECvxX13vp533QHOalwMsF8krqV XantymxFQibchjYEokucW7OWBjXKTdBIvoCXJlDEXb QxKrzGItGzHdGlOlvTijhOyhHXjdInIsWDDwGTyzC0zhJmDhDzUzHNN4AWLjDJgzNYfgXZPgOCa0UvYt MXH4QEF8FOC1FACldHByuJ== CLINICAL DATA (test code = 3355) i8eqbCNhNVFvtOQgWiTrXFAfIWHvz8voXAXwcRBlTyFfVqCzSdPnLzhbvSDnINHjToRqn9nko678vUIo z2roJBVaHmQ1xQVeYWStoQXjT780l3eet0jzhpYnkIS2LZRtDJW2YSaetaFxnuF4LCfsxEAmJbN5PCcs ykNzZYjfavKtnpOzVsf4TJTzD148OFK1uOofs3tvMB L9JZUhHTNuBgEbUw4poTBkG578JMGkISOGIQWjiBp9KCPodyVevdNqsYROv377P530c3yxMHXnwwSmwQ nLerteh3tdT726LEPxwMVuwsFvNgDkEYDthCSidIH5YQIaLN2ulnfkMiVbRX1aycvySvIeZA9thra2Hz FzTX3tlzhnLfXeMIloBJOkbsqqZPPkk8LwdkxlIP7d G8Heu8W8sL1uwBCkIUXocHTfWoFkOCRigc8fmFNnLYqza4OiAXF6yzF1hBSjqJGfOPLlBG42Nakjt3Le HhjyUXP6OUAoiwBmn8Lyl1kjOaFcdwGuX6czB6AfRSApBXOwRUFpXmQiedIvl0Ryq8SytTRpvTv8q6zm ORLfWZDjkCzgq7ntQYG5GJDtT0Q9bVYda0xkXKmbHI HsaOQ4kemnPRpwAIGnxfJ0cievDFzhPEWmvHF2peoiDEzsHMMtGsS0climPCukPABoXSP6YVcob971RN O3VCyaMovmBZawVTGplmQqcdVkbHzhIYLlWWClXVkdJVXaUTblNSWpJYWaOhIufRvzpZpzgZ9iPyCiUi QiPBavNR8zSQQrA4cxiNTpMNCvLLDtE0jtYrNirI5w mYczLLagndAcRZDsklouNMSggSEdTFSqOlTjrZ9dWHWulUX6i3E3OO4oFLVxy3X6YDGoVNUolgTvdwwt YXJ9 SPECIMEN SOURCE (test code = 3377) d9trvIYcBZIzdNUrOuOqTAYvREUhj2maGBHtvRDiNeByVcYoOyMvYkbhnCTrDIGuYyJve4zmd051wZOf c0wfNBCiTqK6uAAeDKBieDFmM900n4qfb1cxcqVenJD5EWEoTDN6HBigkbGwekF1HVselIMfHmH0LWju xdNxEAoukkIyljSrJen2YDEhR655MYY4vPqsv4byJF H6LKHqUTQfNbIyFm8urJBtS208BKMzZTRNVKJjsYz8ZRGfxyLdvgTchKZTn221O483x5rpGLExfsZvfU kQspsfj4dbZ459DOPehMIfklSwPpPqIXFljBRsgYH9BSQpWM1qqwjtBoWsSL1opejnPeXoFD0nyyr3Vz XiII5ocrowYsXgCFruYLWpgjzbLLQbb7FwkupjDN5j I9Ahs9T8zB4bwZHzNXMbnTMnLhEyAHXeez9myIOtIAngn9AgKJM7ahW9cIEumTFkRMAiSD42Grdqp5Rg XvouCDM9BBZxnaDvs5Pej1qpSvGkseNkZ0qvT4OsGHGdCPSfUQHgHoRkcaFeg9Yfc6OdmVEguTq8o5px HFJlXWNriPqyf9kbGLM1BVAzU2M2wCTmd3eiRSlhKR VmpCT1qlomXEpcADLzxuM6vxplUKyuUXZwwGM4ldbdMLroZJBpPwN4ewquDUogYECzICE5IBcgk593VF V2TGnlUjkcRDmvLOLqmfKdsqAovDfjAOBfEKZtKDgjKTPzOBilWRKeSEPfThZdgAchhVeikF6qRaGiIl UcYMruVR9oMYBqM2drmSXfWSMgWRInJ4vfVtHonF9x aFxmMFxmczIwIFBFUklDQVJESUFMIEZMVUlEIFxwYXJ9 GROSS DESCRIPTION (test code = 3366) e7ogxCHcNXZrhKGtQlGeOTInCZVft2vtQBMucOGsByXhVjRgWnFzGxtacGCnONMbSfDez6itf772zHWr r4dhCQWkXxT2aUZnOXUiqPSaO470SVVbUPdrs5ntc0QkDIOrfRDdt6Q0FIGHeqjsrIi6mXkxV81xv7P7 BundW7tjUKJcTJBjU6SoVP5vMTZnGjb6PPT2ATL9AB AiPKBoC9QiEB4wZJBxfCWcCJj9x2bdsOboLBRyFXJ3h6nhWJdlhoFjHC3pga1jaWj4v2jhhuVmVHYpGN EkbVTFIFDsK8KynMtrEt5ahVn5pVsuFyqxQAJ3Sxa7AZ5aeh44cij9gQxzMWMrwthuEtA0XZipSDXpcx xvJAz0ALmyHYMlhNsvCJzcCNUvtxrgNAkmMTDyoBgd OWnbVNPbNqpyVNhzIAQhIQG2AIyuc161EQO4LLsxo7ohi0kfkHEyRoz3QZRpMeZzAobwXRgkd8Ybq2wv WKVixk3wRVS3eBMgvTrpp7K0wTZjGZGegYSnfhAqRLZuQeY9VIkdPT5vur55RKAxZPI4dy2qlVViwAjb qyFoxIKcQZtnA3LeUWCmr540CYZjB1BqTTJwo9K3ez LpCdNsJSGafMH0hgP3FYLqIMs6rFNbciU1sfJtqUGcB6ivaU26VcWzoGBbJ0UmqF02TbAesKFnC0WxhH 31KyJtxSJoH5HifG04CvMewNQxPOHhnUKpUi9puJVpoZOqz1TaeJXwWPyqC20ro390JTUchoGxX8dwuJ UvntsqpGDcdvndNPlwibA0UNBiBATgTRwcMWYpSROq JzWybVAkVoHrWxVjhUgejRzzXOhwAsGvKYAzDVbgF9bdDoXlDdCnQjWrWQPskJikDKOsc81aiQHzbAGi BGigKAQhcXEap0EciqRoTDRmqTeuCbetY9hdjAVzPRDlwRnjK6CxEFiqQLBsQOJnAQRywuJAQQQskIMh ZDogMDMxMTIwXHBhcn0= STATEMENT OF ADEQUACY (test code = 2757) Satisfactory SPECIAL STUDIES (test code = 3376) [file] WyrYYdJnEpVjQamPfgcYbjIrdyEtWaZIXzLWlkK8xgMuLnFpWzPyvfRUO8mU== Gross assessment was performed at (test code = 2777) [facility], Department of Pathology, [address] [place] [address], Technical component was performed at (test code = 2778 ) [facility], Department of Pathology, [address] [place] [address], Professional component was performed at (test code = 2 779) [facility], Department of Pathology, [address] [place], [place] [address], [facility] 15:01:00Medical Cytology Report Case: [id number] Authorizing Provider: Eduardo Shafer, Collected: 08/21/2019 Eugene SNOW Ordering Location: [facility] CV Recovery Room 2 Received: 08/22/2019 0913 Pathologist: Bryon Brown MD Specimen: Pericardial PERICARDIAL FLUID (CYTOSPINS AND CELL BLOCK): - NEGATIVE FOR MALIGNANCY (SEE COMMENT) Signing Pathologist Direct Phone Line: [phone] signed by Bryon Brown MD on 08/23/2019 at 3:01 PMCyt ospins and cell block sections show scattered mesothelial cells with reactive ch anges. Immunostains performed on cell block sections show the mesothelial cells are positive for calretinin, CK7 and CAM5.2, while MOC31 is predominantly negati ve. The findings are supportive of the above diagnosis. 11235, 41525, 87474, 883 41 x 3Pericardial effusion, history of prostate cancerPERICARDIAL FLUID 300 mls bloody fluid; 4 cytospins, cell blockCollected: [id number]: [id number] ryThe interpretation of this case included the use of immunohistochemistry or sp ecial stains.Control Slides Examined: In-house known positive controls were lata luated along with the test tissue. These control slides run alongside of the mili echevarria sample show appropriate staining. Internal positive and negative controls when available are evaluated Immunohistochemistry technical testing was perform ed at [facility], Pathology Laboratory where it was yeimio ped and its performance characteristics were determined. It [...] perform high complexity clinical laboratory testing.Vincenzo lucas [facility], Department of Pathology, [address] [place] [address], [facility], [facility] of [facility], [address] [place] [address], [facility], [facility] of [facility], [address] [place] [address], TGWWQ METABOLIC [id number] 12:52:00* Test Item Value Reference Range Interpretation [...] GFR IS NOT APPLICABLE FOR DIALYSIS PATIENTS. Boarding Room Fixer ID - KATELYN FLACTIC ACID, [id number] 12:29:00* Test Item Value Reference Range Interpretation Comments LACTATE BLOOD ARTERIAL (2) (BEAKER) (test code = 2874) 1.8 mmol/L 0.5-2.2 Specimen slightly hemolyzed Boarding Room Fixer ID - SHANNAN COLORADOYGEN SATURATION, [id number] 12:24:00* Test Item Value Reference Range Interpretation Comments O2 SATURATION (MEASURED) (BEAKER) (test code = 1455) 60.8 % CALCIUM, [id number] 12:22:00* Test Item Value Reference Range Interpretation Comments CALCIUM IONIZED (BEAKER) (test code = 698) 1.11 mmol/L 1.12-1.27 L PH, BLOOD (BEAKER) (test code = 1810) 7.50 HGB/HCT (H&H)-Stat [id number] 12:21:00* Test Item Value Reference Range Interpretation Comments Hemoglobin (test code = 786-4) 11.6 g/dL 13-16.8 L Hematocrit (test code = 4544-3) 34.0 % 40-50 L Lab Interpretation (test code = 12463-8) [facility]normal [facility] [id number] 12:21:00* Test Item Value Reference Range Interpretation Comments Glucose (test code = 2345-7) 180 mg/dL 70-110 H Lab Interpretation (test code = 45103-2) [facility] [id number] 12:21:00* Test Item Value Reference Range Interpretation Comments Sodium (test code = 2951-2) 135 meq/L 135-148 Lab Interpretation (test code = 17604-3) [facility] [id number] 12:21:00* Test Item Value Reference Range Interpretation Comments Potassium (test code = 2823-3) 3.5 meq/L 3.6-5.5 L Lab Interpretation (test code = 47267-6) [facility] [id number] 12:21:00* Test Item Value Reference Range Interpretation Comments SODIUM (BEAKER) (test code = 381) 135 meq/L 135-148 POTASSIUM-STAT [id number] 12:21:00* Test Item Value Reference Range Interpretation Comments POTASSIUM (BEAKER) (test code = 379) 3.5 meq/L 3.6-5.5 L BLOOD GAS, [id number] 12:21:00* Test Item Value Reference Range Interpretation [...] (test code = 1818) 37.0 C GLUCOSE-STAT [id number] 12:21:00* Test Item Value Reference Range Interpretation Comments GLUCOSE RANDOM (BEAKER) (test code = 652) 180 mg/dL 70-110 H HGB/HCT (H&H) - STAT [id number] 12:21:00* Test Item Value Reference Range Interpretation Comments HEMOGLOBIN (ANA LAURA) (test code = 410) 11.6 g/dL 13.0-16.8 L HEMATOCRIT (BEAKER) (test code = 411) 34.0 % 40.0-50.0 L Transesophageal [id number] 10:34:54Ejection FractionSLEH ECHO HEARTLAB MKCKESSON CPACSInterface, External Ris In - 08/23/2019 10:35 AM CDTTransesophageal Echocardiography Report (LAYNE) Demographics Patient Name GRETTA BYRD Date of Study 08/22/2019 Gender Male Visit Number [id number] Race Unknown Room Number 2C22 Number Date of 1935 Referring Eduardo Shafer MD Physician Age 83 year(s) Signs Cleaner Bakari Dean Interpreting Physician EDY Brown Fellow IVETT Ozuna Procedure Type of Study LAYNE procedure:TRANSESOPHAGEAL ECHO Indications:Per icardial effusion.Clinical HistoryARTHRITIS,A-FIB,CANCER,CAD,HTN,THYROID DISEASE ,S/P PERICARDIAL [id number]: 55 inches Weight: 45.36 kg (100 lbs) BSA : 1.31 m^2 BMI: 23.24 kg/m^2HR: 75 bpm BP: 103/45 mmHg Summary Limited 2D exam a nd Doppler exam to address study indication. A debgioyg-ff-rbpsc circumferential pericardial effusion is present. The effusion [...] PV is not well visualized. Pericardium A pgputnes-rr-oqvwo circumferentia l pericardial effusion is present. The [...] images. A right pleural effusion is noted. [facility] Hollywood[facility] SAT[facility], [id number] 10:21:00* Test Item Value Reference Range Interpretation Comments O2 SATURATION (MEASURED) (BEAKER) (test code = 1455) 57.1 % CBC W/PLT COUNT & AUTO [id number] 08:48:00* Test Item Value Reference Range Interpretation [...] % 0-1 CBC W/PLT COUNT & AUTO [id number] 05:36:00* Test Item Value Reference Range Interpretation [...] % 0-1 RAD, CHEST, 1 VIEW, NON [id number] 04:58:00Reason for exam:->sob, fever. new admitFINAL REPORT [...] (test code = 604) 2.5 mg/dL 2.3-4.7 Boarding Room Fixer ID - JERRI [id number] 04:40:00* Test Item Value Reference Range Interpretation Comments MAGNESIUM (BEAKER) (test code = 627) 2.3 mg/dL 1.6-2.6 Boarding Room Fixer ID - JERRI WBASIC METABOLIC [id number] 04:40:00* Test Item Value Reference Range Interpretation [...] GFR IS NOT APPLICABLE FOR DIALYSIS PATIENTS. Boarding Room Fixer ID - JERRI WLACTIC ACID, [id number] 04:32:00* Test Item Value Reference Range Interpretation Comments LACTATE BLOOD ARTERIAL (2) (BEAKER) (test code = 2874) 1.0 mmol/L 0.5-2.2 Boarding Room Fixer ID - JERRI WBLOOD GAS, [id number] 04:14:00* Test Item Value Reference Range Interpretation [...] (test code = 1819) 28.0 % CALCIUM, [id number] 04:09:00* Test Item Value Reference Range Interpretation Comments CALCIUM IONIZED (BEAKER) (test code = 698) 1.13 mmol/L 1.12-1.27 PH, BLOOD (BEAKER) (test code = 1810) 7.45 LACTIC ACID, [id number] 20:35:00* Test Item Value Reference Range Interpretation Comments LACTATE BLOOD ARTERIAL (2) (BEAKER) (test code = 2874) 1.0 mmol/L 0.5-2.2 Boarding Room Fixer ID - DBCALCIUM, [id number] 20:16:00* Test Item Value Reference Range Interpretation Comments CALCIUM IONIZED (BEAKER) (test code = 698) 1.09 mmol/L 1.12-1.27 L PH, BLOOD (BEAKER) (test code = 1810) 7.43 BLOOD GAS, [id number] 20:16:00* Test Item Value Reference Range Interpretation [...] code = 1819) 40.0 % SODIUM NA-STAT [id number] 20:16:00* Test Item Value Reference Range Interpretation Comments SODIUM (BEAKER) (test code = 381) 131 meq/L 135-148 L GLUCOSE-STAT [id number] 20:16:00* Test Item Value Reference Range Interpretation Comments GLUCOSE RANDOM (BEAKER) (test code = 652) 124 mg/dL 70-110 H HGB/HCT (H&H) - STAT [id number] 20:16:00* Test Item Value Reference Range Interpretation Comments HEMOGLOBIN (BEAKER) (test code = 410) 11.3 g/dL 13.0-16.8 L HEMATOCRIT (BEAKER) (test code = 411) 33.0 % 40.0-50.0 L POC-Glucose [id number] 20:15:00* Test Item Value Reference Range Interpretation Comments POC-Glucose Meter (test code = 1538) 122 mg/dL 70-110 H : TESTED [address], [address]: Boarding Room Fixer/Printing Engineer ID = [id number] for FLORIAN LUKE Lab Interpretation (test code = 96750-5) [facility] [id number] 20:15:00* Test Item Value Reference Range Interpretation Comments POC-GLUCOSE METER (BEAKER) (test code = 1538) 122 mg/dL 70-110 H : TESTED AT [address], [address]: Boarding Room Fixer/Printing Engineer ID = [id number] for FLORIAN LUKE POTASSIUM-STAT [id number] 20:14:00* Test Item Value Reference Range Interpretation Comments POTASSIUM (BEAKER) (test code = 379) 3.8 meq/L 3.6-5.5 LACTIC ACID, [id number] 18:48:00* Test Item Value Reference Range Interpretation Comments LACTATE BLOOD ARTERIAL (2) (BEAKER) (test code = 2874) 1.0 mmol/L 0.5-2.2 Boarding Room Fixer ID - DBPOCT-GLUCOSE [id number] 18:31:00* Test Item Value Reference Range Interpretation Comments POC-GLUCOSE METER (BEAKER) (test code = 1538) 123 mg/dL 70-110 H : TESTED AT [address], [address]: Boarding Room Fixer/Printing Engineer ID = [id number] for POLLY FARMER BLOOD GAS, [id number] 18:25:00* Test Item Value Reference Range Interpretation [...] code = 1819) 40.0 % Legionella antigen, [id number] 17:23:00* Test Item Value Reference Range Interpretation Comments Legionella Urine Antigen (test code = 39993-9) Negative - see comme nt Negative for L. pneumophila serogroup 1 antigen, suggesting no recent or current infection with this serogroup. Legionellosis cannot be ruled out since other serogroups and species may cause disease. [facility] iegewsf4097-79-49 17:23:00* Test Item Value Reference Range Interpretation Comments Strep pneumoniae Antigen (test code = 30336-1) Presump tive negative for pneumococcal pneumonia - [...] the test. Lab Interpretation (test code = 86697-8) Normal [facility] ANTIGEN, [id number] 17:23:00* Test Item Value Reference Range Interpretation Comments L. PNEUMOPHILA SEROGP 1 UR AG (BEAKER) (test code = 11 56) Negative - see comment Negative for L. pneu mophila serogroup 1 antigen, suggesting no recent or current infection with this serogroup. Legionellosis cannot be ruled out since other serogroups and species may cause disease. STREP PNEUMONIAE [id number] 17:23:00* Test Item Value Reference Range Interpretation [...] the test .CBC W/PLT COUNT & AUTO [id number] 15:27:00* Test Item Value Reference Range Interpretation [...] = 2801) 1 % 0-1 LACTIC ACID, [id number] 14:08:00* Test Item Value Reference Range Interpretation Comments LACTATE BLOOD ARTERIAL (2) (BEAKER) (test code = 2874) 0.8 mmol/L 0.5-2.2 Boarding Room Fixer ID - HUNTER MPOCT-GLUCOSE [id number] 13:48:00* Test Item Value Reference Range Interpretation Comments POC-GLUCOSE METER (BEAKER) (test code = 1538) 98 mg/dL 70-110 : TESTED AT [facility] [address], [address]: Boarding Room Fixer/Printing Engineer ID = [id number] for POLLY FARMER [id number] 11:01:00* Test Item Value Reference Range Interpretation Comments Cortisol, Total (test code = 2755) 17.3 ug/dL 3.7-19.4 DUDLEY (test code = DUDLEY) Boarding Room Fixer ID - HUNTER M Lab Interpretation (test code = 16477-5) Normal [facility]CORTISOL2020-03-[facility] 11:01:00* Test Item Value Reference Range Interpretation Comments CORTISOL, TOTAL (BEAKER) (test code = 2755) 17.3 ug/dL 3.7-19.4 Boarding Room Fixer ID - HUNTER MCYTOLOGY [id number] 11:00:00* Test Item Value Reference Range Interpretation Comments Cytology (test code = 2629) See Separate Report [facility] [id number] 11:00:00* Test Item Value Reference Range Interpretation Comments CYTOLOGY RESULT POINTER (BEAKER) (test code = 2629) See Separate Re port CYTOLOGY [id number] 11:00:00* Test Item Value Reference Range Interpretation Comments CYTOLOGY RESULT POINTER (BEAKER) (test code = 2629) See Separate Re port RAD, CHEST, 1 VIEW, NON [id number] 10:32:00Reason for exam:->Significant subqutaneous emphysema ? progression, [...] MDReport Verified Date/Time: 08/22/2019 10:32:26 Reading Location: [facility] Radiology Reading Room Respiratory Panel [id number] 08:47:00* Test Item Value Reference Range Interpretation Comments Human Metapneumovirus (test code = 92369-7) Not detected Not detected, Equivocal Rhinovirus (test code = 00793-2) Not detected Not detected, Equivoc al INFLUENZA A (NO SUBTYPE) (test code = 88208-6) Not detected Not detected, Equivocal Influenza A subtype H1 (test code = 17712-9) Influenza A Subtype H3 (test code = 39363-0) Influenza A Subtype H1-2009 (test code = 96762-7) Influenza B (test code = 87582-0) Not detected Not detected, Equivo lisa Respiratory Syncytial Virus (test code = 36347-5) Not detect ed Not detected, Equivocal Parainfluenza Virus 1 (test code = 42270-5) Not detected Not detected, Equivocal Parainfluenza Virus 2 (test code = 54670-6) Not detected Not detected, Equivocal Parainfluenza virus 3 (test code = 09962-8) Not detected Not detected, Equivocal Parainfluenza Virus 4 (test code = 19426-5) Not detected Not detected, Equivocal Adenovirus (test code = 83068-2) Not detected Not detected, Equivoc al Coronavirus 229E (test code = 43133-8) Not detected Not detected, E quivocal Coronavirus HKU1 (test code = 17132-5) Not detected Not detected, E quivocal Coronavirus NL63 (test code = 75855-9) Not detected Not detected, E quivocal Coronavirus OC43 (test code = 19117-6) Not detected Not detected, E quivocal Bordetella Pertussis (test code = 33997-4) Not detected Not d etected, Equivocal Chlamydophila Pneumoniae (test code = 35180-8) Not detected Not detected, Equivocal Mycoplasma Pneumoniae (test code = 42254-6) Not detected Not detected, Equivocal DUDLEY (test [...] decisions. This sample was tested at the [facility] Molecular Diagnostics Laboratory using the M2 ConnectionsArray Respiratory Panel. It is FDA cleared and has been verified and approved by the [facility] for clinical use on nasopharyngeal swab specimens. The performance of the FilmArra y RP has not been established in individuals who received influenza vaccine. Recent administration of a nasal influenza vaccine may cause false positive results for Influenza A and/orInfluenza B. [facility] HollywoodRESPIRATORY PANEL [id number] 08:47:00* Test Item Value Reference Range Interpretation [...] follow up of serology, culture results, and oth er molecular studies is required. The results are not intended to be used as the sole means for clinical diagnosis or patient management decisions. This sample was tested at the [facility] Molecular Diagnostics Laboratory using the M2 ConnectionsA rray Respiratory Panel. It is FDA cleared and has been verified and approved by the [facility] Molecular Diagnostics Laboratory for clinical use on nasopharyngeal sw ab specimens.The performance of the FilmArray RP has not been established in ind ividuals who received influenza vaccine. Recent administration of a nasal influ bruce vaccine may cause false positive results for Influenza A and/orInfluenza B. RAD, CHEST, 1 VIEW, NON [id number] 05:33:00Reason for exam:->sob, fever. new admitFINAL REPORT [...] MDReport Verified Date/Time: 08/22/2019 05:33:36 C METABOLIC [id number] 04:24:00* Test Item Value Reference Range Interpretation [...] GFR IS NOT APPLICABLE FOR DIALYSIS PATIENTS. Boarding Room Fixer ID - HUNTER [id number] 04:20:00* Test Item Value Reference Range Interpretation Comments PTT (test code = 78939-3) 42.6 22.5- 36.0 seconds H Lab Interpretation (test code = 00065-5) Abnormal [facility] HollywoodAPTT2020-03-11 04:20:00* Test Item Value Reference Range Interpretation Comments PARTIAL THROMBOPLASTIN TIME (BEAKER) (test code = 760) 42.6 seconds 22.5-36.0 H Nvezuqgrjn0051-79-76 04:19:00* Test Item Value Reference Range Interpretation Comments Fibrinogen (test code = 3255-7) 644 mg/dl 225-434 H Lab Interpretation (test code = 99903-9) Abnormal [facility] HollywoodProthromin time/[id number] 04:19:00* Test Item Value Reference Range Interpretation [...] heart valves. Lab Interpretation (test code = 00001-7) Abnormal [facility] HollywoodPROTHROMBIN TIME/[id number] 04:19:00* Test Item Value Reference Range Interpretation [...] 2.5-3.5 for patie nts wiht mechanical heart valves.GWFZNTGLCD9256-20-14 04:19:00* Test Item Value Reference Range Interpretation Comments PHOSPHORUS (BEAKER) (test code = 604) 2.8 mg/dL 2.3-4.7 Boarding Room Fixer ID - HUNTER [id number] 04:19:00* Test Item Value Reference Range Interpretation Comments MAGNESIUM (BEAKER) (test code = 627) 2.2 mg/dL 1.6-2.6 Boarding Room Fixer ID - HUNTER ADSDITEYTOT7144-10-12 04:19:00* Test Item Value Reference Range Interpretation Comments FIBRINOGEN LEVEL (BEAKER) (test code = 658) 644 mg/dl 225-434 H CBC W/PLT COUNT & AUTO [id number] 04:09:00* Test Item Value Reference Range Interpretation [...] = 2801) 1 % 0-1 BLOOD GAS, [id number] 04:01:00* Test Item Value Reference Range Interpretation [...] (test code = 1819) 50.0 % CALCIUM, [id number] 04:01:00* Test Item Value Reference Range Interpretation Comments CALCIUM IONIZED (BEAKER) (test code = 698) 1.09 mmol/L 1.12-1.27 L PH, BLOOD (BEAKER) (test code = 1810) 7.43 BASIC METABOLIC [id number] 01:24:00* Test Item Value Reference Range Interpretation [...] GFR IS NOT APPLICABLE FOR DIALYSIS PATIENTS. Boarding Room Fixer ID - DBLACTIC ACID, [id number] 00:54:00* Test Item Value Reference Range Interpretation Comments LACTATE BLOOD ARTERIAL (2) (BEAKER) (test code = 2874) 0.9 mmol/L 0.5-2.2 Specimen slightly hemolyzed Boarding Room Fixer ID - DBPT/[id number] 00:52:00* Test Item Value Reference Range Interpretation Comments Protime (test code = 5902-2) 18.8 11.9- 14.2 seconds H INR (test code = 6301-6) 1.6 <=5.9 PTT (test code = 89018-9) 39.3 22.5- 36.0 seconds H DUDLEY (test code = DUDLEY) Effective 11/08/2018: PT Refe rence Range ChangeNew: 11.9- 14.2 Previous: 11.7-14.7 RECOMMENDED COUMADIN/WARFARIN INR THERAPY RANGESSTANDARD DOSE: 2.0-3.0 Includes: PROPHYLAXIS for venous thrombosis, sys temic embolization; TREATMENT for venous thrombosis and/or pulmonary embolus.HIGH RISK: Target INR is 2.5-3.5 for patients wiht mechanical heart valves. Lab Interpretation (test code = 06482-5) Abnormal [facility] HospitalPT/[id number] 00:52:00* Test Item Value Reference Range Interpretation [...] for patie nts wiht mechanical heart valves.CALCIUM, [id number] 00:44:00* Test Item Value Reference Range Interpretation Comments CALCIUM IONIZED (BEAKER) (test code = 698) 1.02 mmol/L 1.12-1.27 L PH, BLOOD (BEAKER) (test code = 1810) 7.49 BLOOD GAS, [id number] 00:44:00* Test Item Value Reference Range Interpretation [...] 40.0 % CBC W/PLT COUNT & AUTO WCNSRMAENJHA3840-67-01 00:44:00* Test Item Value Reference Range Interpretation [...] = 2801) 1 % 0-1 SODIUM NA-STAT [id number] 00:44:00* Test Item Value Reference Range Interpretation Comments SODIUM (BEAKER) (test code = 381) 132 meq/L 135-148 L HGB/HCT (H&H) - STAT [id number] 00:44:00* Test Item Value Reference Range Interpretation Comments HEMOGLOBIN (BEAKER) (test code = 410) 10.8 g/dL 13.0-16.8 L HEMATOCRIT (BEAKER) (test code = 411) 32.0 % 40.0-50.0 L GLUCOSE-STAT [id number] 00:39:00* Test Item Value Reference Range Interpretation Comments GLUCOSE RANDOM (BEAKER) (test code = 652) 87 mg/dL 70-110 POTASSIUM-STAT [id number] 00:39:00* Test Item Value Reference Range Interpretation Comments POTASSIUM (BEAKER) (test code = 379) 3.5 meq/L 3.6-5.5 L Troponin [id number] 00:27:00* Test Item Value Reference Range Interpretation Comments Troponin I (test code = 16733-6) 0.06 ng/mL 0-0.03 H DUDLEY (test code [...] failure, acidosis, acute neurological disease, and persistent tachyarrhythmia.Boarding Room Fixer ID - DB Lab Interpretation (test code = 34453-1) Abnormal [facility] HospitalTROPONIN [id number] 00:27:00* Test Item Value Reference Range Interpretation [...] acidosis, acute neurological disease, and per sistent tachyarrhythmia.Boarding Room Fixer ID - DBLactate dehydrogenase (LDH)2019-08-22 00:19:00* Test Item Value Reference Range Interpretation Comments LDH (test code = 2532-0) 265 U/L 125-220 H DUDLEY (test code = DUDLEY) Boarding Room Fixer ID - DB Lab Interpretation (test code = 11762-7) Abnormal [facility] HospitalLACTATE DEHYDROGENASE (LDH)2019-08-22 00:19:00* Test Item Value Reference Range Interpretation Comments LACTATE DEHYDROGENASE (BEAKER) (test code = 635) 265 U/L 125-2 20 H Boarding Room Fixer ID - DBRAD, CHEST, 1 VIEW, NON [id number] 23:45:00Reason for exam:- >hypoxia, crepitus at left [...] contours. Additional findings: None. Signed: Gretta Lemus [facility] Verified Date/Time: 08/21/2019 23:45:18 Electronically signed by: GRETTA LEMUS MD on 0 08/21/2019 11:45 PM BLOOD GAS, [id number] 22:32:00* Test Item Value Reference Range Interpretation [...] 100.0 % RAD, CHEST, 1 VIEW, NON [id number] 22:30:00Reason for exam:->post cardiac surgeryFINAL REPORT RAD, [...] the left chest wall. Signed: Gretta Lemus [facility] Verified Date/Time: 08/21/2019 22:30:27 2019-08-21 21:23:00* Test Item Value Reference Range Interpretation Comments PARTIAL THROMBOPLASTIN TIME (BEAKER) (test code = 760) 43.9 seconds 22.5-36.0 H PROTHROMBIN TIME/[id number] 21:22:00* Test Item Value Reference Range Interpretation [...] 2.5-3.5 for patie nts wiht mechanical heart valves.[id number] 21:22:00* Test Item Value Reference Range Interpretation Comments FIBRINOGEN LEVEL (BEAKER) (test code = 658) 739 mg/dl 225-434 H [id number] 21:16:00* Test Item Value Reference Range Interpretation Comments PHOSPHORUS (BEAKER) (test code = 604) 3.7 mg/dL 2.3-4.7 Boarding Room Fixer ID - [id number] 21:16:00* Test Item Value Reference Range Interpretation Comments MAGNESIUM (BEAKER) (test code = 627) 1.7 mg/dL 1.6-2.6 Boarding Room Fixer ID - BSBASIC METABOLIC [id number] 21:16:00* Test Item Value Reference Range Interpretation [...] GFR IS NOT APPLICABLE FOR DIALYSIS PATIENTS. Boarding Room Fixer ID - BSLACTIC ACID, [id number] 21:13:00* Test Item Value Reference Range Interpretation Comments LACTATE BLOOD ARTERIAL (2) (BEAKER) (test code = 2874) 1.0 mmol/L 0.5-2.2 Boarding Room Fixer ID - BSCBC W/PLT COUNT & AUTO [id number] 21:02:00* Test Item Value Reference Range Interpretation [...] code = 2801) 1 % 0-1 CALCIUM, [id number] 20:58:00* Test Item Value Reference Range Interpretation Comments CALCIUM IONIZED (BEAKER) (test code = 698) 1.09 mmol/L 1.12-1.27 L PH, BLOOD (BEAKER) (test code = 1810) 7.34 BLOOD GAS, [id number] 20:58:00* Test Item Value Reference Range Interpretation [...] (BEAKER) (test code = 1819) 60.0 % [id number] 20:17:34Katerine Leroy MD - 08/21/2019 8:17 PM [...] posteriorly but still there. Surgical team aware. [facility] Hollywood2D Echo W/Doppler(CW/PW/Color)2019-08-21 18:15:10 Ejection FractionSLEH ECHO HEARTLAB MKCKESSON CPACSInterface, External Ris In - 08/21/2019 6:15 PM CDTTransthoracic Echocardiography Report (TTE) Demographics Patient Name GRETTA BYRD Date of Study 08/21/2019 Gender Male Visit Number [id number] Race Unknown Room Number 2C36 Num sarath Date of 1935 Referring Physician Age 83 year( s) Signs Cleaner Interpreting Physician EDY Fairchild Procedure Type of [...] Root S o f Shawna.: 4.05 cm [facility] HollywoodB-type Natriuretic Factor (BNP) 2019-08-21 18:09:00* Test Item Value Reference Range Interpretation Comments BNP (test code = 51554-1) 384 pg/mL 0-100 H DUDLEY (test code = DUDLEY) Boarding Room Fixer ID - BS Lab Interpretation (test code = 81607-3) Abnormal [facility] HollywoodB-TYPE NATRIURETIC FACTOR (BNP)2019-08-21 18:09:00 * Test Item Value Reference Range Interpretation Comments B-TYPE NATRIURETIC PEPTIDE (BEAKER) (test code = 700) 384 pg/mL 0-100 H Boarding Room Fixer ID - BSABORH, [id number] 18:00:00* Test Item Value Reference Range Interpretation Comments ABO Grouping (test code = 2588) B Rh Factor (test code = 2589) POS [facility] HollywoodVancomycin level, vufvoe3266-88-50 17:59:00* Test Item Value Reference Range Interpretation Comments Vancomycin Rm (test code = 73671-4) 1.8 ug/mL DUDLEY (test code = DUDLEY) Reference Range: No NormalsOperator ID - BS [facility] HollywoodVANCOMYCIN LEVEL, [id number] 17:59:00* Test Item Value Reference Range Interpretation Comments VANCOMYCIN RANDOM (BEAKER) (test code = 523) 1.8 ug/mL Reference Range: No NormalsOperator ID - [id number] 17:38:00* Test Item Value Reference Range Interpretation Comments PARTIAL THROMBOPLASTIN TIME (BEAKER) (test code = 760) 43.8 seconds 22.5-36.0 H PROTHROMBIN TIME/[id number] 17:37:00* Test Item Value Reference Range Interpretation [...] 2.5-3.5 for patie nts wiht mechanical heart valves.VRYLABXCOR3000-61-35 17:37:00* Test Item Value Reference Range Interpretation Comments FIBRINOGEN LEVEL (BEAKER) (test code = 658) 746 mg/dl 225-434 H [id number] 17:35:00* Test Item Value Reference Range Interpretation Comments PHOSPHORUS (BEAKER) (test code = 604) 3.4 mg/dL 2.3-4.7 Boarding Room Fixer ID - [id number] 17:35:00* Test Item Value Reference Range Interpretation Comments MAGNESIUM (BEAKER) (test code = 627) 1.7 mg/dL 1.6-2.6 Boarding Room Fixer ID - BSCOMPREHENSIVE METABOLIC [id number] 17:35:00* Test Item Value Reference Range Interpretation [...] INSUFFICIENT CLINICAL DATA TO CALCULATE ESTIMATED GFR. Boarding Room Fixer ID - BSType and screen, uswxwqrzj0707-76-01 17:33:00* Test Item Value Reference Range Interpretation Comments ABO/RH AUTOMATED (BEAKER) (test code = 2260) B POSITIVE Ab Scrn (test code = 890-4) NEGATIVE [facility] HospitalLACTIC ACID, [id number] 17:30:00* Test Item Value Reference Range Interpretation Comments LACTATE BLOOD ARTERIAL (2) (BEAKER) (test code = 2874) 1.7 mmol/L 0.5-2.2 Specimen slightly hemolyzed Boarding Room Fixer ID - BSCBC W/PLT COUNT & AUTO [id number] 17:12:00* Test Item Value Reference Range Interpretation [...] code = 2801) 1 % 0-1 Platelet [id number] 17:10:00* Test Item Value Reference Range Interpretation Comments Platelets (test code = 777-3) 198 150- 450 K/CU MM DUDLEY (test code = DUDLEY) Boarding Room Fixer ID - 6000 Lab Interpretation (test code = 71411-8) Normal [facility] HospitalPLATELET [id number] 17:10:00* Test Item Value Reference Range Interpretation Comments PLATELET COUNT (BEAKER) (test code = 756) 198 K/CU MM 150-450 Boarding Room Fixer ID - 6000BLOOD GAS, [id number] 16:48:00* Test Item Value Reference Range Interpretation [...] code = 1819) 36.0 % CT CHEST [id number] 20:17:00 [place] [address] Patient Name: GRETTA BYRD MR #: [id number] : 1935 Age/Sex: 83/M Req #: [id number] Adm Physician: GRETTA RODARTE MD Ordered by: CORAZON TOLEDO MD Report #: [id number] Location: [facility] Room/Bed: [place] [address] Procedure: [id number] CT/CT CHEST W Exam Date: Exam Time: REPORT STATUS: Signed CT chest pulmonary embolism pr otocol CPT code: 99587 INDICATION: Chest pain, shortness of breath Possible [...] It is below the limits set by [facility] Radiation Protocol Committee (RPC). Dose reduction techniques [...] COPY TO: CORAZON TOLEDO MD CT CHEST [id number] 10:59:00 [place] [address] Patient Name: GRETTA BYRD MR #: [id number] : 1935 Age/Sex: 83/M Req #: [id number] Adm Physician: GRETTA RODARTE MD Ordered by: GRETTA RODARTE MD Report #: [id number] Location: [facility]/Bed: [place] [address] Procedure: [id number] CT/CT C HEST WO Exam Date: 08/20/19 Exam Time: 1030 REPORT STATUS: Signed EXAM: CT Chest WIT HOUT intravenous contrast 08/20/2019 9:38 AM INDICATION: Pneumonia COMPARISON : Chest radiograph of earlier the same day, chest CT 08/14/2019 TECHNIQUE: [facility] was scanned utilizing a multidetector helical scanner [...] GRETTA RODARTE MD CHEST SINGLE (PORTABLE)2019-08-20 06:50:00 [place] [address] Patient Name: GRETTA BYRD MR #: [id number] : 1935 Age/Sex: 83/M Req #: [id number] Adm Physician: Ordered by: FAIZA DIANA MD Report #: [id number] Location: ER Room/Bed: Procedure: [id number] 16 DX/CHEST SINGLE (PORTABLE) Exam Date: Exam [...] WILEY DO Electronic ally Signed By: COLLIN IWLEY DO on 08/20/19702 Transcribed By: TONI on 08/20/19702 COPY TO: FAIZA DIANA MD Bedside Glucose 2019-08-16 11:10:00* Test Item Value Reference Range Interpretation Comments Bedside Glucose (test code = 29966-6) 89 70-120 Meter ID: [id number] Texas Healthcare Systemodium Level 2019-08-16 06:02:00* Test Item Value Reference Range Interpretation Comments Sodium Level (test code = 2951-2) 135 136-145 L [facility] CenterPotassium Oeebc2082-07-32 06:02:00* Test Item Value Reference Range Interpretation Comments Potassium Level (test code = 2823-3) 4.0 3.5-5.1 [facility] CenterChloride Katha9928-36-15 06:02:00* Test Item Value Reference Range Interpretation Comments Chloride Level (test code = 2075-0) 102 98-107 [facility] CenterCarbon Dioxide Umsqk6487-55-17 06:02:00* Test Item Value Reference Range Interpretation Comments Carbon Dioxide Level (test code = 2028-9) 29 22-29 [facility] CenterAnion [id number] 06:02:00* Test Item Value Reference Range Interpretation Comments Anion Gap (test code = 07402-5) 8.0 8-16 [facility] CenterBlood Urea Pdcgctdi3002-81-07 06:02:00* Test Item Value Reference Range Interpretation Comments Blood Urea Nitrogen (test code = 3094-0) 16 7-26 [facility] CenterCreatinine2020-03-05 06:02:00* Test Item Value Reference Range Interpretation Comments Creatinine (test code = 2160-0) 1.11 0.72-1.25 [facility] CenterBUN/Creatinine Ovzho3910-79-05 06:02:00* Test Item Value Reference Range Interpretation Comments BUN/Creatinine Ratio (test code = 3097-3) 14 6-25 [facility] CenterEstimat Glomerular Filtration Rate 2019-08-16 06:02:00* Test Item Value Reference Range Interpretation Comments Estimat Glomerular Filtration Rate (test code = 164526881) > 60 >60 Ranges were taken from the National Kidney Disease Education Program and the [facility], [facility] [employer] literature.Reference ranges:60 or greater: Brnrgk29-05 ( for 3 consecutive months): Chronic kidney disease 15 or less: Kidney failureTexoma Medical CenterGlucose Hiozq8678-87-05 06:02:00* Test Item Value Reference Range Interpretation Comments Glucose Level (test code = OEH8937) 76 74-118 [facility] CenterCalcium Gdlqb0489-53-36 06:02:00* Test Item Value Reference Range Interpretation Comments Calcium Level (test code = 32241-9) 8.9 8.4-10.2 [facility] CenterWhite Blood Qziep0103-13-08 05:46:00* Test Item Value Reference Range Interpretation Comments White Blood Count (test code = 6690-2) 8.39 4.8-10.8 [facility] CenterRed Blood Acofg3032-92-16 05:46:00* Test Item Value Reference Range Interpretation Comments Red Blood Count (test code = 789-8) 3.88 4.3-5.7 L [facility] CenterHemoglobin2020-03-05 05:46:00* Test Item Value Reference Range Interpretation Comments Hemoglobin (test code = 67755-2) 11.0 14.0-18.0 L [facility] CenterHematocrit2020-03-05 05:46:00* Test Item Value Reference Range Interpretation Comments Hematocrit (test code = 4544-3) 35.2 38.2-49.6 L [facility] CenterMean Corpuscular Fvrnvb2932-79-26 05:46:00* Test Item Value Reference Range Interpretation Comments Mean Corpuscular Volume (test code = 787-2) 90.7 81-99 [facility] CenterMean Corpuscular Oxbmgzsmdy8183-68-30 05:46:00* Test Item Value Reference Range Interpretation Comments Mean Corpuscular Hemoglobin (test code = 785-6) 28.4 28-32 [facility] CenterMean Corpuscular Hemoglobin Concent 2019-08-16 05:46:00* Test Item Value Reference Range Interpretation Comments Mean Corpuscular Hemoglobin Concent (test code = 786-4) 31.3 31-35 [facility] CenterRed Cell Distribution Xziez0523-56-84 05:46:00* Test Item Value Reference Range Interpretation Comments Red Cell Distribution Width (test code = 30218-6) 14.8 11.7 -14.4 H [facility] CenterPlatelet Wxiaw1486-88-55 05:46:00* Test Item Value Reference Range Interpretation Comments Platelet Count (test code = 777-3) 163 140-360 [facility] CenterNeutrophils (%) (Auto)2019-08-16 05:46:00 * Test Item Value Reference Range Interpretation Comments Neutrophils (%) (Auto) (test code = 26944-6) 76.7 38.7-80.0 [facility] CenterLymphocytes (%) (Auto)2019-08-16 05:46:00 * Test Item Value Reference Range Interpretation Comments Lymphocytes (%) (Auto) (test code = 736-9) 11.6 18.0-39.1 L [facility] CenterMonocytes (%) (Auto)2019-08-16 05:46:00* Test Item Value Reference Range Interpretation Comments Monocytes (%) (Auto) (test code = 5905-5) 10.8 4.4-11.3 [facility] CenterEosinophils (%) (Auto)2019-08-16 05:46:00 * Test Item Value Reference Range Interpretation Comments Eosinophils (%) (Auto) (test code = 713-8) 0.4 0.0-6.0 [facility] CenterBasophils (%) (Auto)2019-08-16 05:46:00* Test Item Value Reference Range Interpretation Comments Basophils (%) (Auto) (test code = 706-2) 0.1 0.0-1.0 [facility] CenterIM GRANULOCYTES %2019-08-16 05:46:00* Test Item Value Reference Range Interpretation Comments IM GRANULOCYTES % (test code = IM GRANULOCYTES %) 0.4 0.0- 1.0 [facility] CenterNeutrophils # (Auto)2019-08-16 05:46:00* Test Item Value Reference Range Interpretation Comments Neutrophils # (Auto) (test code = 751-8) 6.4 2.1-6.9 [facility] CenterLymphocytes # (Auto)2019-08-16 05:46:00* Test Item Value Reference Range Interpretation Comments Lymphocytes # (Auto) (test code = 59671-5) 1.0 1.0-3.2 [facility] CenterMonocytes # (Auto)2019-08-16 05:46:00* Test Item Value Reference Range Interpretation Comments Monocytes # (Auto) (test code = 742-7) 0.9 0.2-0.8 H [facility] CenterEosinophils # (Auto)2019-08-16 05:46:00* Test Item Value Reference Range Interpretation Comments Eosinophils # (Auto) (test code = 711-2) 0.0 0.0-0.4 [facility] CenterBasophils # (Auto)2019-08-16 05:46:00* Test Item Value Reference Range Interpretation Comments Basophils # (Auto) (test code = 704-7) 0.0 0.0-0.1 [facility] CenterAbsolute Immature Granulocyte (auto 2019-08-16 05:46:00* Test Item Value Reference Range Interpretation Comments Absolute Immature Granulocyte (auto (enmanuel t code = Absolute Immature Granulocyte (auto) 0.03 0-0.1 [facility] - Treadmill [id number] 18:12:00 [facility] [address] [place] [address] Patient Name : GRETTA BYRD MR #: [id number] : 1935 Age/Sex: 83/M Adm Physician : GRETTA RODARTE MD Admit Date : 08/14/19 Location : [facility] Room/Bed : [place] [address] REPORT: EXERCISE S TRESS TEST DATE OF [...] ischemia. Corazon Toledo MD [facility]/OSMEL 18 :12:56 /[id number] cc: Gretta Rodarte MD Signature Date Dictated By: CORAZON TOLEDO MD Transcribed By: OSMEL on 08/24/19 <Electronically signed by CORAZON TOLEDO MD><< Signature on File>>08/25/19 9835 COPY TO: GRETTA RODARTE MD Creatine Kinase [id number] 15:36:00* Test Item Value Reference Range Interpretation Comments Creatine Kinase MB (test code = 24136-0) 1.10 0-5.0 [facility] CenterTroponin [id number] 15:36:00* Test Item Value Reference Range Interpretation Comments Troponin I (test code = UHB2713) 0.039 0-0.300 [facility] CenterCreatine Oshqgx0677-03-82 15:32:00* Test Item Value Reference Range Interpretation Comments Creatine Kinase (test code = 2157-6) 37 30-200 [facility] CenterTotal Ygpdvmdoj7751-09-10 05:48:00* Test Item Value Reference Range Interpretation Comments Total Bilirubin (test code = 1975-2) 0.9 0.2-1.2 [facility] CenterAspartate Amino Transf (AST/SGOT) 2019-08-15 05:48:00* Test Item Value Reference Range Interpretation Comments Aspartate Amino Transf (AST/SGOT) (test code = Aspartate Amino Transf (AST/SGOT)) 19 5-34 [facility] CenterAlanine Aminotransferase (ALT/SGPT) 2019-08-15 05:48:00* Test Item Value Reference Range Interpretation Comments Alanine Aminotransferase (ALT/SGPT) (test code = 1742-6) 7 0-55 [facility] CenterTotal Tebvouj2795-25-27 05:48:00* Test Item Value Reference Range Interpretation Comments Total Protein (test code = 2885-2) 6.0 6.5-8.1 L [facility] CenterAlbumin2020-03-04 05:48:00* Test Item Value Reference Range Interpretation Comments Albumin (test code = 1751-7) 2.7 3.5-5.0 L [facility] CenterGlobulin2020-03-04 05:48:00* Test Item Value Reference Range Interpretation Comments Globulin (test code = 36014-5) 3.3 2.3-3.5 [facility] CenterAlbumin/Globulin Uvagv8747-61-87 05:48:00 * Test Item Value Reference Range Interpretation Comments Albumin/Globulin Ratio (test code = 1759-0) 0.8 0.8-2.0 [facility] CenterAlkaline Dmztazfryuy3555-27-67 05:48:00* Test Item Value Reference Range Interpretation Comments Alkaline Phosphatase (test code = 6768-6) 77 40-150 [facility] CenterCT CHEST [id number] 11:48:00 [facility] [address] [place], [place] [address] Patient Name: GRETTA BYRD MR #: [id number] : 1935 Age/Sex: 83/M Req #: [id number] Adm Physician: GRETTA RODARTE MD Ordered by: CECI RODARTE DO Report #: [id number] Location: [facility] Room/Bed: [place] [address] Procedure: [id number] CT/CT CHEST W Exam Date: 08/14/19 Exam [...] ectatic (3.9 cm). Atherosclerotic calcification of the iliamna coronary arteries and great vessel origins. Metallic [...] Comments D-Dimer Quantitative (PE/DVT) (test code = 66562-3) 3952 0- 400 H The Triage D-Dimer Test has not been evaluated for use as sole evidence for the presence or absence of PE or DVT. As with all in vitro diagnostic tests, the te st results should be interpreted by the physician in conjunction with clinical f indings and other test results.Test results are reported in D-dimer units.[facility] SINGLE (PORTABLE)2019-08-14 09:01:00 [facility] [address] [place] [address] Patient Name: GRETTA BYRD MR #: [id number] : 6 Age/Sex: 83/M Req #: [id number] Adm Physician: Ordered by: CECI RODARTE DO Report #: [id number] Location: ER Room/Bed: Procedure: [id number] DX/CH EST SINGLE (PORTABLE) Exam Date: 08/14/19 Exam Time: 0830 REPORT STATUS: Signed EXAM INATION: Pulmonary interstitial [...] COPY TO: CECI RODARTE DO Arterial Blood [id number] 08:29:00* Test Item Value Reference Range Interpretation Comments Arterial Blood pH (test code = 2744-1) 7.43 7.31-7.41 H [facility] CenterArterial Blood Partial Pressure CO2 2019-08-14 08:29:00* Test Item Value Reference Range Interpretation Comments Arterial Blood Partial Pressure CO2 (test code = 2019-01) 38 41-51 L [facility] CenterArterial Blood Partial Pressure O2 2019-08-14 08:29:00* Test Item Value Reference Range Interpretation Comments Arterial Blood Partial Pressure O2 (test code = 2018-) 99 80-105 [facility] CenterArterial Blood [id number] 08:29:00* Test Item Value Reference Range Interpretation Comments Arterial Blood HCO3 (test code = 1960-4) 25 23-28 [facility] CenterArterial Blood Base Ngusys6603-15-93 08:29:00* Test Item Value Reference Range Interpretation Comments Arterial Blood Base Excess (test code = 1925-7) 1.0 -2-3 [facility] CenterArterial Blood Oxygen Saturation 2019-08-14 08:29:00* Test Item Value Reference Range Interpretation Comments Arterial Blood Oxygen Saturation (test code = 2708-6) 98.0 95-98 [facility] CenterFiO22020-03-03 08:29:00* Test Item Value Reference Range Interpretation Comments FiO2 (test code = FiO2) 32 3L/M NC RIGHT RADIALTexoma Medical CenterB-Type Natriuretic Kcwnmgl8790-26-94 07:50:00* Test Item Value Reference Range Interpretation Comments B-Type Natriuretic Peptide (test code = 95403-5) 259.2 0-100 H [facility][U] XRAY FEMUR 2 VWS RIGHT [id number] 2019-07-04 11:17:00Images acquired, not reported on this accession number. [facility][U] XRAY FEMUR 2 VWS RIGHT [id number] 12:30:00Images acquired, not reported on this accession number.[facility] PhysiciansUric Qeji2984-72-93 13:59:00* Test Item Value Reference Range Interpretation Comments Uric Acid (test code = 3084-1) 3.7 4.8-8.0 L [facility] CenterUric Hppb4680-40-35 13:59:00* Test Item Value Reference Range Interpretation Comments Uric Acid (test code = 3084-1) 3.7 4.8-8.0 L [facility] CenterErythrocyte Sedimentation Winj3360-78-35 13:30:00* Test Item Value Reference Range Interpretation Comments Erythrocyte Sedimentation Rate (test code = 4537-7) 29 0- 13 H [facility] CenterErythrocyte Sedimentation Xqqs2144-59-56 13:30:00* Test Item Value Reference Range Interpretation Comments Erythrocyte Sedimentation Rate (test code = 4537-7) 29 0- 13 H [facility] [place] [facility] Systemodium Acugs7425-05-60 13:29:00* Test Item Value Reference Range Interpretation Comments Sodium Level (test code = 2951-2) 136 136-145 [facility] CenterPotassium Mitap5697-14-67 13:29:00* Test Item Value Reference Range Interpretation Comments Potassium Level (test code = 2823-3) 4.6 3.5-5.1 [facility] CenterChloride Djxob9711-74-47 13:29:00* Test Item Value Reference Range Interpretation Comments Chloride Level (test code = 2075-0) 101 98-107 [facility] CenterCarbon Dioxide Wffau0997-99-77 13:29:00* Test Item Value Reference Range Interpretation Comments Carbon Dioxide Level (test code = 2028-9) 25 22-29 [facility] CenterAnion Shi3948-51-45 13:29:00* Test Item Value Reference Range Interpretation Comments Anion Gap (test code = 77784-8) 14.6 8-16 [facility] CenterBlood Urea Becrpjez4358-16-89 13:29:00* Test Item Value Reference Range Interpretation Comments Blood Urea Nitrogen (test code = 3094-0) 12 7-26 [facility] CenterCreatinine2019-12-11 13:29:00* Test Item Value Reference Range Interpretation Comments Creatinine (test code = 2160-0) 0.99 0.72-1.25 [facility] CenterBUN/Creatinine Dmade0255-19-29 13:29:00* Test Item Value Reference Range Interpretation Comments BUN/Creatinine Ratio (test code = 3097-3) 12 6- [facility] CenterEstimat Glomerular Filtration Rate 2019-05-23 13:29:00* Test Item Value Reference Range Interpretation Comments Estimat Glomerular Filtration Rate (test code = 912405653) > 60 >60 Ranges were taken from the National Kidney Disease Education Program and the [facility], [employer] literature.Reference ranges:60 or greater: Mmargs13-49 ( for 3 consecutive months): Chronic kidney disease 15 or less: Kidney failureTexoma Medical CenterGlucose Gxfzh5991-55-34 13:29:00* Test Item Value Reference Range Interpretation Comments Glucose Level (test code = RPC8011) 75 74-118 [facility] CenterCalcium Pkxdt0026-10-49 13:29:00* Test Item Value Reference Range Interpretation Comments Calcium Level (test code = 04323-9) 8.3 8.4-10.2 L [facility] CenterTotal Uioqmmbtj7905-95-30 13:29:00* Test Item Value Reference Range Interpretation Comments Total Bilirubin (test code = 1975-2) 1.3 0.2-1.2 H [facility] CenterAspartate Amino Transf (AST/SGOT) 2019-05-23 13:29:00* Test Item Value Reference Range Interpretation Comments Aspartate Amino Transf (AST/SGOT) (test code = Aspartate Amino Transf (AST/SGOT)) 30 5-34 [facility] CenterAlanine Aminotransferase (ALT/SGPT) 2019-05-23 13:29:00* Test Item Value Reference Range Interpretation Comments Alanine Aminotransferase (ALT/SGPT) (test code = 1742-6) 15 0-55 [facility]al Oykllrm5115-60-04 13:29:00* Test Item Value Reference Range Interpretation Comments Total Protein (test code = 2885-2) 6.3 6.5-8.1 L [facility] CenterAlbumin2019-12-11 13:29:00* Test Item Value Reference Range Interpretation Comments Albumin (test code = 1751-7) 2.8 3.5-5.0 L [facility] CenterGlobulin2019-12-11 13:29:00* Test Item Value Reference Range Interpretation Comments Globulin (test code = 26005-7) 3.5 2.3-3.5 [facility] CenterAlbumin/Globulin Hbcjd4797-34-29 13:29:00 * Test Item Value Reference Range Interpretation Comments Albumin/Globulin Ratio (test code = 1759-0) 0.8 0.8-2.0 [facility] CenterAlkaline Limynfmgrjx9514-32-71 13:29:00* Test Item Value Reference Range Interpretation Comments Alkaline Phosphatase (test code = 6768-6) 135 40-150 [facility] CenterWRIST COMPLETE ZLXP5114-53-87 12:22:00 [facility] [address] [place] [address] Patient Name: GRETTA BYRD MR #: [id number] : 6 Age/Sex: 83/M Req #: [id number] Adm Physician: Ordered by: CECI ZAVALA BOBBIN PAINTER Report #: [id number] Location: ER Room/Bed: Procedure: [id number] DX /WRIST COMPLETE LEFT Exam Date: 05/23/19 [...] on 05/01 1226 COPY TO: CECI ZAVALA BOBBIN PAINTER White Blood Count 2019-05-23 12:17:00* Test Item Value Reference Range Interpretation Comments White Blood Count (test code = 6690-2) 8.38 4.8-10.8 [facility] CenterRed Blood Swhci4539-21-96 12:17:00* Test Item Value Reference Range Interpretation Comments Red Blood Count (test code = 789-8) 4.94 4.3-5.7 [facility] CenterHemoglobin2019-12-11 12:17:00* Test Item Value Reference Range Interpretation Comments Hemoglobin (test code = 82176-2) 14.1 14.0-18.0 [facility] CenterHematocrit2019-12-11 12:17:00* Test Item Value Reference Range Interpretation Comments Hematocrit (test code = 4544-3) 46.3 38.2-49.6 [facility] CenterMean Corpuscular Wemrjo9977-90-49 12:17:00* Test Item Value Reference Range Interpretation Comments Mean Corpuscular Volume (test code = 787-2) 93.7 81-99 [facility] CenterMean Corpuscular Xmileykngx5193-08-86 12:17:00* Test Item Value Reference Range Interpretation Comments Mean Corpuscular Hemoglobin (test code = 785-6) 28.5 28-32 [facility] CenterMean Corpuscular Hemoglobin Concent 2019-05-23 12:17:00* Test Item Value Reference Range Interpretation Comments Mean Corpuscular Hemoglobin Concent (test code = 786-4) 30.5 31-35 L [facility] CenterRed Cell Distribution Vimfz4933-71-18 12:17:00* Test Item Value Reference Range Interpretation Comments Red Cell Distribution Width (test code = 71097-2) 19.9 11.7 -14.4 H [facility] CenterPlatelet Emrzg5584-47-23 12:17:00* Test Item Value Reference Range Interpretation Comments Platelet Count (test code = 777-3) 155 140-360 [facility] CenterNeutrophils (%) (Auto)2019-05-23 12:17:00 * Test Item Value Reference Range Interpretation Comments Neutrophils (%) (Auto) (test code = 12987-7) 75.4 38.7-80.0 [facility] CenterLymphocytes (%) (Auto)2019-05-23 12:17:00 * Test Item Value Reference Range Interpretation Comments Lymphocytes (%) (Auto) (test code = 736-9) 12.2 18.0-39.1 L [facility] CenterMonocytes (%) (Auto)2019-05-23 12:17:00* Test Item Value Reference Range Interpretation Comments Monocytes (%) (Auto) (test code = 5905-5) 11.3 4.4-11.3 [facility] CenterEosinophils (%) (Auto)2019-05-23 12:17:00 * Test Item Value Reference Range Interpretation Comments Eosinophils (%) (Auto) (test code = 713-8) 0.8 0.0-6.0 [facility] CenterBasophils (%) (Auto)2019-05-23 12:17:00* Test Item Value Reference Range Interpretation Comments Basophils (%) (Auto) (test code = 706-2) 0.1 0.0-1.0 [facility] CenterIM GRANULOCYTES %2019-05-23 12:17:00* Test Item Value Reference Range Interpretation Comments IM GRANULOCYTES % (test code = IM GRANULOCYTES %) 0.2 0.0- 1.0 [facility] CenterNeutrophils # (Auto)2019-05-23 12:17:00* Test Item Value Reference Range Interpretation Comments Neutrophils # (Auto) (test code = 751-8) 6.3 2.1-6.9 [facility] CenterLymphocytes # (Auto)2019-05-23 12:17:00* Test Item Value Reference Range Interpretation Comments Lymphocytes # (Auto) (test code = 96838-7) 1.0 1.0-3.2 [facility] CenterMonocytes # (Auto)2019-05-23 12:17:00* Test Item Value Reference Range Interpretation Comments Monocytes # (Auto) (test code = 742-7) 1.0 0.2-0.8 H [facility] CenterEosinophils # (Auto)2019-05-23 12:17:00* Test Item Value Reference Range Interpretation Comments Eosinophils # (Auto) (test code = 711-2) 0.1 0.0-0.4 [facility] CenterBasophils # (Auto)2019-05-23 12:17:00* Test Item Value Reference Range Interpretation Comments Basophils # (Auto) (test code = 704-7) 0.0 0.0-0.1 [facility] CenterAbsolute Immature Granulocyte (auto 2019-05-23 12:17:00* Test Item Value Reference Range Interpretation Comments Absolute Immature Granulocyte (auto (enmanuel t code = Absolute Immature Granulocyte (auto) 0.02 0-0.1 [facility] CenterXRAY Ribs bilateral with PA chest [id number] 2019-05-14 08:12:00EXAM: XR BILATERAL RIB 2 VIEWS [...] Signed by: Aric Yadav MD 05/14/1909:26FINAL REPORT [facility][U] XRAY KNEE 1 OR 2 VWS RIGHT [id number] 12:46:00Images acquired, not reported on this accession number.[facility][U] XRAY BONE LENGTH STUDY-SCANOGRAM [id number] 12:46:00 Images acquired, not reported on this accession number.[facility]
[2020-04-19] MEDS ORDERED: LISINOPRIL2.5 MG PO (02:48)
[2020-04-19] MEDS ORDERED: LEVOTHYROXINE75 MCG PO (02:49)
[2020-04-19] MEDS ORDERED: BUMETANIDE1 MG PO (02:50)
[2020-04-19] MEDS ORDERED: LOMOTIL TABLET1 EACH PO (02:51)
[2020-04-19] MEDS ORDERED: METRONIDAZOLE 500MG/NS 100ML IV SCH ×2 (06:00→14:00)
[2020-04-19] MEDS ORDERED: PIPER-TAZ 3.375 GM 50 ML IV SCH (06:00)
[2020-04-19] MEDS ORDERED: DIPHENOXYLATE/ATROPINE TAB PO PRN (10:15)
[2020-04-19] MEDS ORDERED: NITROGLYCERIN 0.4 MG SUBL SL PRN (10:15)
[2020-04-19] MEDS: CIPROFLOXACIN 500 MG TAB PO SCH ×2 (10:15→17:00)
[2020-04-19] MEDS: CYANOCOBALAMIN 1,000 MCG TAB PO SCH (11:00)
[2020-04-19] MEDS: ASPIRIN 325 MG TAB EC PO SCH (11:00)
[2020-04-19] MEDS: FOLIC ACID/CYANOCOB/PYRIDOXINE TAB PO SCH (11:00)
[2020-04-19] MEDS: VANCOMYCIN 250MG/5ML ORAL SOLN PO SCH ×2 (11:00→20:30)
[2020-04-19] MEDS: FERROUS SULFATE 325 MG TAB PO SCH (11:00)
[2020-04-19] MEDS: LEVOTHYROXINE SODIUM 75 MCG TAB PO SCH (11:00)
[2020-04-19] MEDS: AMIODARONE HCL 200 MG TAB PO SCH (11:00)
--- NOTE | 2020-04-19 12:02 | History and Physical ---
PRIMARY CARE PHYSICIAN: Pardeep Romero CHIEF COMPLAINT: Diarrhea for four days. HISTORY OF PRESENT ILLNESS: An 84 years male could not remember what he ate, but he has off and on diarrhea for the past four days. He has some abdominal discomfort. His symptom is much improved now. Diarrhea has been abated. The patient is slightly dehydrated with BUN and creatinine of 33 and 2.2. The patient is stable. PAST MEDICAL HISTORY: Atrial fibrillation, hypertension, hypothyroidism, osteoarthritis, prostate cancer. PAST SURGICAL HISTORY: Cholecystectomy, knee replacement, hernia repair, coronary artery disease with previous stent, Watchman device, slipped disk with steroid injection, watchman procedures, right knee replacement, right femur surgery. SOCIAL HISTORY: The patient does not smoke or use alcohol. No regular drug use. ALLERGIES: DULOXETINE AND CEFUROXIME. HOME MEDICATIONS: The patient is on amiodarone, aspirin, Lipitor, Bumex, Coreg, B12, ferrous sulfate, Lomotil p.r.n., folic acid, levothyroxine, lisinopril, Flomax. PHYSICAL EXAMINATION: VITAL SIGNS: Temperature is 98, blood pressure 120/78, pulse rate is 80, respirations 20. GENERAL: The patient is not in acute distress. HEENT: Normocephalic and atraumatic. Anicteric. NECK: Supple grossly. PULMONARY: Clear. CARDIOVASCULAR: Regular rate and rhythm. ABDOMEN: Soft and unremarkable. EXTREMITIES: No cyanosis or edema. NEUROLOGIC: No focal deficit. LABORATORY DATA: WBC is 8.2, hemoglobin 14.6, hematocrit 45, platelets 122. Chemistry: Sodium 135, potassium 4.7, chloride 95, bicarb 28, BUN 33, creatinine 2.1, glucose is 90. Serologies for COVID-19 PCR pending. Imaging tests showed descending colon and sigmoid colon colitis. IMPRESSION: 1. Acute gastroenteritis associated with descending and rectosigmoid colon wall thickening associated with colitis. Diverticulosis without diverticulitis. 2. Multiple chronic baseline problems. PLAN: We will hold off some of the patient's home medication, which may have caused the patient to be more dehydrated from his diarrhea including Bumex. The lisinopril will be on hold since he is dehydrated and could be causing the elevation of BUN and creatinine. We will place the patient on empiric oral vancomycin and Rocephin for now. The patient otherwise is stable. He will continue with his home medication with some adjustment. We will repeat lab work. Observation. Once the patient is stable, he should be able to go home. I will give him gentle IV fluids for rehydration as well. MD ROMAN Pearson/OSMEL /[id number]
[2020-04-19] MEDS: METRONIDAZOLE 500MG/NS 100ML IV SCH ×2 (14:00→21:17)
[2020-04-19] MEDS ORDERED: SODIUM CHLORIDE 0.9% 250ML 250 ML ONE (14:54)
[2020-04-19] MEDS: CARVEDILOL 3.125 MG TAB PO SCH (17:00)
[2020-04-19] MEDS: TAMSULOSIN HCL 0.4 MG CAP PO SCH (17:15)
--- NOTE | 2020-04-19 19:21 | NUR ---
WALKING ROUNDS COMPLETE, REPORT GIVEN TO ONCOMING NURSE.
[2020-04-19] MEDS ORDERED: ATORVASTATIN 20 MG TAB PO SCH (21:00)
[2020-04-20 00:30] VITALS: BP 138/66
[2020-04-20] MEDS: VANCOMYCIN 250MG/5ML ORAL SOLN PO SCH (04:00)
[2020-04-20] MEDS: METRONIDAZOLE 500MG/NS 100ML IV SCH (05:23)
[2020-04-20] MEDS: LEVOTHYROXINE SODIUM 75 MCG TAB PO SCH (05:23)
[2020-04-20 05:45] VITALS: BP 146/80
[2020-04-20 06:40] LABS: BASOPHILS % 0.2 % (0.0-1.0); EOSINOPHILS # (AUTO) 0.1 (0.0-0.4); EOSINOPHILS % 1.8 % (0.0-6.0); HEMATOCRIT 40.2 % (38.2-49.6); HEMOGLOBIN 13.1 g/dL (14.0-18.0); LYMPHOCYTES # (AUTO) 0.6 (1.0-3.2); LYMPHOCYTES % 11.3 % (18.0-39.1); MEAN CORPUSCULAR HEMOGLOBIN 30.3 pg (28-32); MEAN CORPUSCULAR HGB CONC 32.6 g/dL (31-35); MEAN CORPUSCULAR VOLUME 92.8 fL (81-99); MONOCYTES # (AUTO) 0.4 (0.2-0.8); MONOCYTES % 8.9 % (4.4-11.3); NEUTROPHILS # (AUTO) 3.8 (2.1-6.9); NEUTROPHILS % 77.4 % (38.7-80.0); PLATELET COUNT 97 x10e3/uL (140-360); RED BLOOD COUNT 4.33 x10e6/uL (4.3-5.7); RED CELL DISTRIBUTION WIDTH 15.9 % (11.7-14.4)
[2020-04-20 07:04] LABS: ALBUMIN 3.1 g/dL (3.5-5.0); ALBUMIN/GLOBULIN RATIO 0.9 (0.8-2.0); CALCIUM 8.8 mg/dL (8.4-10.2); CREATININE, SERUM 1.5 mg/dL (0.72-1.25)
[2020-04-20 07:44] VITALS: BP 167/84
[2020-04-20 08:24] VITALS: BP 167/84
[2020-04-20] MEDS: AMIODARONE HCL 200 MG TAB PO SCH (08:40)
[2020-04-20] MEDS: TAMSULOSIN HCL 0.4 MG CAP PO SCH (08:40)
[2020-04-20] MEDS: FOLIC ACID/CYANOCOB/PYRIDOXINE TAB PO SCH (08:40)
[2020-04-20] MEDS: CIPROFLOXACIN 500 MG TAB PO SCH (08:40)
[2020-04-20] MEDS: FERROUS SULFATE 325 MG TAB PO SCH (08:40)
[2020-04-20] MEDS: ASPIRIN 325 MG TAB EC PO SCH (08:40)
[2020-04-20] MEDS: CYANOCOBALAMIN 1,000 MCG TAB PO SCH (08:40)
[2020-04-20] MEDS: CARVEDILOL 3.125 MG TAB PO SCH (08:41)
--- NOTE | 2020-04-20 11:25 | Discharge Summary ---
PRIMARY CARE PHYSICIAN: Dr. Pardeep Romero. FINAL DIAGNOSES: 1. Acute gastroenteritis. CT scan of the abdomen and pelvis show mild thickening of the descending and rectosigmoid colon. 2. Chronic diverticulosis without diverticulitis. 3. Moderate-sized hiatal hernia. SUMMARY: 1. An 84-year-old male, came in with a few days of diarrhea. The patient seemed to be dehydrated. He is doing much better now. Diarrhea resolved. He was placed on oral vancomycin and Cipro. The patient is stable, discharged home with vancomycin 125 mg p.o. t.i.d. for 7 days, Cipro 250 mg twice a day for 7 days, Zofran ODT p.r.n. 2. The patient will hold diuretic until he resume diet adequately. His blood pressure medication resumed. The patient is otherwise stable. Discussed with the patient at length. He is comfortable and back to his baseline to go home today. MD ROMAN Pearson/OSMEL /[id number]
[2020-04-20 11:39] VITALS: BP 167/89
== END 2020-04-20 14:51 | disposition home or self-care (01) ==
LOC: ER 18:45 → ERHOLD 04-19 00:21 → MED/SURG2 04-19 01:27
PROVIDERS: ADMIT Internal Medicine; ATTEND Internal Medicine
DX: K52.9 Noninfective gastroenteritis and colitis, unspecified (principal); K57.90 Diverticulosis of intestine, part unspecified, without perforation or abscess without bleeding; K44.9 Diaphragmatic hernia without obstruction or gangrene; Z11.59 Encounter for screening for other viral diseases; I48.91 Unspecified atrial fibrillation; Z79.01 Long term (current) use of anticoagulants; I10 Essential (primary) hypertension; E03.9 Hypothyroidism, unspecified; I25.10 Atherosclerotic heart disease of native coronary artery without angina pectoris; Z85.46 Personal history of malignant neoplasm of prostate; Z96.651 Presence of right artificial knee joint
CPT/HCPCS: 36415 ×2; 74177; 80053 ×2; 82550; 82553; 84484; 85025 ×2; 99284; G0378 ×2; J2543; J7030; J7050; Q9967; U0002

== ENCOUNTER 2021-01-14 11:45 | Inpatient (IN) | payer MEDICARE ==
[~2021-01-14] VITALS: Ht 188 cm; Wt 88.5 kg
[~2021-01-14 11:45] MED LIST changes: +BUMETANIDE1 MG PO; +DEPO-TESTOS100 MG/ML IM; +LEVOTHYROXINE75 MCG PO; +LOMOTIL TABLET1 EACH PO; +MYRBETRIQ25 MG PO
[2021-01-14] MEDS ORDERED: AMIODARONE HCL 150 MG/100 ML BAG IV ONE (12:00)
[2021-01-14] MEDS ORDERED: AMIODARONE HCL 150 MG in DEXTROSE 5% 100ML 100 ML IV ONE (12:00)
[2021-01-14] MEDS ORDERED: AMIODARONE HCL 150MG 200 ML ONE (12:00)
[2021-01-14] MEDS ORDERED: AMIODARONE 900MG 500 ML IV SCH ×3 (12:00→18:45)
[2021-01-14] MEDS ORDERED: AMIODARONE 900MG 500 ML IV ONE (12:05)
[2021-01-14 12:06] LABS: BASOPHILS % 0.1 % (0.0-1.0); HEMATOCRIT 47.8 % (38.2-49.6); HEMOGLOBIN 15.5 g/dL (14.0-18.0); LYMPHOCYTES % 5.7 % (18.0-39.1); MEAN CORPUSCULAR HEMOGLOBIN 30.9 pg (28-32); MEAN CORPUSCULAR HGB CONC 32.4 g/dL (31-35); MEAN CORPUSCULAR VOLUME 95.2 fL (81-99); MONOCYTES # (AUTO) 0.7 (0.2-0.8); MONOCYTES % 4.1 % (4.4-11.3); NEUTROPHILS # (AUTO) 16.1 (2.1-6.9); NEUTROPHILS % 89.5 % (38.7-80.0); PLATELET COUNT 180 x10e3/uL (140-360); RED BLOOD COUNT 5.02 x10e6/uL (4.3-5.7); RED CELL DISTRIBUTION WIDTH 13.3 % (11.7-14.4)
[2021-01-14 12:16] LABS: PARTIAL THROMBOPLASTIN TIME 35.3 seconds (23.8-35.5)
[2021-01-14] MEDS ORDERED: FINASTERIDE5 MG PO (12:25)
[2021-01-14 12:26] LABS: INR 0.97; PROTHROMBIN TIME 13.1 seconds (11.9-14.5)
[2021-01-14 12:27] LABS: ALBUMIN 3.6 g/dL (3.5-5.0); ALBUMIN/GLOBULIN RATIO 0.9 (0.8-2.0); ANION GAP 18.6 mmol/L (8-16); CREATININE, SERUM 1.9 mg/dL (0.72-1.25); MAGNESIUM 2.1 MG/DL (1.3-2.1); POTASSIUM 4.6 mmol/L (3.5-5.1)
[2021-01-14] MEDS ORDERED: DILTIAZEM HCL 5 MG/ML 5 ML VIAL IV STA ×2 (12:31→13:13)
[2021-01-14] MEDS ORDERED: SODIUM CHLORIDE 0.9% 500ML 500 ML ONE (12:36)
[2021-01-14] MEDS ORDERED: DILTIAZEM HCL VIAL 5 ML ONE (12:36)
[2021-01-14 12:38] LABS: CREATINE KINASE MB 0.8 ng/mL (0-5.0)
[2021-01-14] MEDS ORDERED: SODIUM CHLORIDE 0.9% 500ML 500 ML IV ONE (12:45)
[2021-01-14] MEDS ORDERED: DILTIAZEM HCL 60 MG TAB PO SCH (13:15)
[2021-01-14] MEDS ORDERED: DIGOXIN INJ 0.25 MG/ML 2 ML AMP IV ONE (14:00)
[2021-01-14] MEDS: METOPROLOL TARTRATE INJ 1 MG/ML VIAL IV PRN ×2 (15:27→21:50)
[2021-01-14 17:55] VITALS: BP 153/122
[2021-01-14 18:44] VITALS: BP 153/122
[2021-01-14 18:55] LABS: CREATINE KINASE MB 0.8 ng/mL (0-5.0)
[2021-01-14 20:04] VITALS: BP 112/75
[2021-01-15] VITALS (8 sets, daily range): BP systolic 99–145; BP diastolic 62–99
[2021-01-15] MEDS: METOPROLOL TARTRATE INJ 1 MG/ML VIAL IV PRN (04:42)
[2021-01-15 05:31] LABS: BASOPHILS % 0.2 % (0.0-1.0); EOSINOPHILS % 0.4 % (0.0-6.0); HEMATOCRIT 42.8 % (38.2-49.6); LYMPHOCYTES # (AUTO) 1.1 (1.0-3.2); LYMPHOCYTES % 13.3 % (18.0-39.1); MEAN CORPUSCULAR HGB CONC 32.2 g/dL (31-35); MEAN CORPUSCULAR VOLUME 96.2 fL (81-99); MONOCYTES # (AUTO) 0.7 (0.2-0.8); MONOCYTES % 8.5 % (4.4-11.3); NEUTROPHILS # (AUTO) 6.2 (2.1-6.9); NEUTROPHILS % 77.2 % (38.7-80.0); PLATELET COUNT 129 x10e3/uL (140-360); RED BLOOD COUNT 4.45 x10e6/uL (4.3-5.7); RED CELL DISTRIBUTION WIDTH 13.2 % (11.7-14.4)
[2021-01-15 05:43] LABS: HEMOGLOBIN 13.8 g/dL (14.0-18.0)
[2021-01-15 06:13] LABS: ALBUMIN 3.1 g/dL (3.5-5.0); ALBUMIN/GLOBULIN RATIO 0.9 (0.8-2.0); ANION GAP 13.1 mmol/L (8-16); CALCIUM 8.3 mg/dL (8.4-10.2); CHOL/HDL RATIO 3.9 (3.9-4.7); CREATININE, SERUM 1.49 mg/dL (0.72-1.25); POTASSIUM 4.1 mmol/L (3.5-5.1)
[2021-01-15 06:19] LABS: CREATINE KINASE MB 1.4 ng/mL (0-5.0)
[2021-01-15] MEDS ORDERED: NITROGLYCERIN 0.4 MG SUBL SL PRN (08:00)
[2021-01-15] MEDS: BUMETANIDE 1 MG TAB PO SCH (08:50)
[2021-01-15] MEDS: AMIODARONE HCL 200 MG TAB PO SCH ×2 (08:50→17:11)
[2021-01-15] MEDS: TAMSULOSIN HCL 0.4 MG CAP PO SCH ×2 (08:51→17:11)
[2021-01-15] MEDS: FINASTERIDE 5 MG TAB PO SCH (08:51)
[2021-01-15] MEDS: CYANOCOBALAMIN 1,000 MCG TAB PO SCH (08:54)
[2021-01-15] MEDS ORDERED: ASPIRIN 81 MG ENTERIC COATED PO SCH (09:00)
[2021-01-15] MEDS: NON-FORMULARY MEDICATION (Mirabegron (Myrbetriq) 50 MG) PO SCH (09:00)
[2021-01-15] MEDS ORDERED: CARVEDILOL 12.5 MG TAB PO SCH (09:00)
[2021-01-15] MEDS ORDERED: METOPROLOL TARTRATE 25 MG TAB PO SCH (10:45)
[2021-01-15] MEDS: LEVOTHYROXINE SODIUM 75 MCG TAB PO SCH (11:35)
[2021-01-15 11:41] LABS: CLARITY,URINE CLEAR (CLEAR); COLOR,URINE YELLOW (YELLOW); KETONES,URINE NEGATIVE (NEGATIVE); LEUKOCYTE ESTERASE ,URINE NEGATIVE (NEGATIVE); NITRITE,URINE NEGATIVE (NEGATIVE); PROTEIN,URINE DIPSTICK NEGATIVE (NEGATIVE); RBC,URINE 0-5 /HPF (0-5); URINE UROBILINOGEN 0.2 mg/dL (0.2 - 1); WBC,URINE (MAN) 0-5 /HPF (0-5)
[2021-01-15 14:03] LABS: CREATINE KINASE MB 1.7 ng/mL (0-5.0)
[2021-01-15] MEDS: CARVEDILOL 12.5 MG TAB PO SCH (17:11)
[2021-01-15] MEDS: ATORVASTATIN 20 MG TAB PO SCH (21:21)
[2021-01-16] VITALS (8 sets, daily range): BP systolic 90–124; BP diastolic 70–99
[2021-01-16] MEDS: METOPROLOL TARTRATE INJ 1 MG/ML VIAL IV PRN ×6 (00:25→15:03)
[2021-01-16] MEDS: LEVOTHYROXINE SODIUM 75 MCG TAB PO SCH (04:47)
[2021-01-16] MEDS: BUMETANIDE 1 MG TAB PO SCH (08:34)
[2021-01-16] MEDS: AMIODARONE HCL 200 MG TAB PO SCH ×2 (08:34→16:57)
[2021-01-16] MEDS: CARVEDILOL 12.5 MG TAB PO SCH (08:35)
[2021-01-16] MEDS: TAMSULOSIN HCL 0.4 MG CAP PO SCH ×2 (08:36→16:57)
[2021-01-16] MEDS: FINASTERIDE 5 MG TAB PO SCH (08:36)
[2021-01-16] MEDS: CYANOCOBALAMIN 1,000 MCG TAB PO SCH (08:36)
[2021-01-16] MEDS: NON-FORMULARY MEDICATION (Mirabegron (Myrbetriq) 50 MG) PO SCH (09:00)
[2021-01-16] MEDS ORDERED: METOPROLOL TARTRATE INJ 1 MG/ML VIAL IV ONE (09:30)
[2021-01-16] MEDS ORDERED: METOPROLOL TARTRATE INJ 1 MG/ML VIAL ONE (09:41)
[2021-01-16] MEDS: METOPROLOL TARTRATE 50 MG TAB PO SCH ×3 (09:44→22:37)
[2021-01-16] MEDS ORDERED: AMIODARONE HCL 200 MG TAB PO ONE (10:15)
[2021-01-16] MEDS ORDERED: METOPROLOL TARTRATE 50 MG TAB PO ONE (10:15)
[2021-01-16] MEDS: ATORVASTATIN 20 MG TAB PO SCH (22:36)
[2021-01-17] VITALS (8 sets, daily range): BP systolic 95–124; BP diastolic 63–97
[2021-01-17] MEDS: METOPROLOL TARTRATE INJ 1 MG/ML VIAL IV PRN ×3 (04:23→16:47)
[2021-01-17] MEDS: LEVOTHYROXINE SODIUM 75 MCG TAB PO SCH (05:43)
[2021-01-17] MEDS: METOPROLOL TARTRATE 50 MG TAB PO SCH ×3 (06:30→21:26)
[2021-01-17] MEDS ORDERED: LOPERAMIDE HCL 2 MG CAP PO PRN (08:00)
[2021-01-17] MEDS: BUMETANIDE 1 MG TAB PO SCH (08:42)
[2021-01-17] MEDS: AMIODARONE HCL 200 MG TAB PO SCH ×2 (08:42→16:47)
[2021-01-17] MEDS: TAMSULOSIN HCL 0.4 MG CAP PO SCH ×2 (08:42→16:47)
[2021-01-17] MEDS: FINASTERIDE 5 MG TAB PO SCH (08:42)
[2021-01-17] MEDS: NON-FORMULARY MEDICATION (Mirabegron (Myrbetriq) 50 MG) PO SCH (08:43)
[2021-01-17] MEDS: CYANOCOBALAMIN 1,000 MCG TAB PO SCH (08:43)
[2021-01-17] MEDS: ATORVASTATIN 20 MG TAB PO SCH (21:26)
[2021-01-18] VITALS (8 sets, daily range): BP systolic 104–126; BP diastolic 58–91
[2021-01-18] MEDS: LEVOTHYROXINE SODIUM 75 MCG TAB PO SCH (06:27)
[2021-01-18] MEDS: METOPROLOL TARTRATE 50 MG TAB PO SCH ×3 (06:27→21:11)
[2021-01-18] MEDS: FINASTERIDE 5 MG TAB PO SCH (08:46)
[2021-01-18] MEDS: TAMSULOSIN HCL 0.4 MG CAP PO SCH ×2 (08:46→16:23)
[2021-01-18] MEDS: BUMETANIDE 1 MG TAB PO SCH (08:46)
[2021-01-18] MEDS: AMIODARONE HCL 200 MG TAB PO SCH ×2 (08:46→16:23)
[2021-01-18] MEDS: NON-FORMULARY MEDICATION (Mirabegron (Myrbetriq) 50 MG) PO SCH (08:46)
[2021-01-18] MEDS: CYANOCOBALAMIN 1,000 MCG TAB PO SCH (08:46)
[2021-01-18] MEDS: ATORVASTATIN 20 MG TAB PO SCH (21:10)
[2021-01-19] VITALS (8 sets, daily range): BP systolic 102–151; BP diastolic 62–96
[2021-01-19] MEDS: LEVOTHYROXINE SODIUM 75 MCG TAB PO SCH ×2 (03:23→06:33)
[2021-01-19] MEDS: METOPROLOL TARTRATE 50 MG TAB PO SCH ×3 (06:33→21:59)
[2021-01-19] MEDS: BUMETANIDE 1 MG TAB PO SCH (08:51)
[2021-01-19] MEDS: CYANOCOBALAMIN 1,000 MCG TAB PO SCH (08:51)
[2021-01-19] MEDS: FINASTERIDE 5 MG TAB PO SCH (08:51)
[2021-01-19] MEDS: TAMSULOSIN HCL 0.4 MG CAP PO SCH ×2 (08:51→17:00)
[2021-01-19] MEDS: AMIODARONE HCL 200 MG TAB PO SCH ×2 (08:51→17:00)
[2021-01-19] MEDS: NON-FORMULARY MEDICATION (Mirabegron (Myrbetriq) 50 MG) PO SCH (09:00)
[2021-01-19] MEDS: ATORVASTATIN 20 MG TAB PO SCH (20:59)
[2021-01-20 01:47] VITALS: BP 125/78
[2021-01-20] MEDS: LEVOTHYROXINE SODIUM 75 MCG TAB PO SCH (06:00)
[2021-01-20] MEDS: METOPROLOL TARTRATE 50 MG TAB PO SCH (06:00)
[2021-01-20 06:19] VITALS: BP 120/59
[2021-01-20 08:00] VITALS: BP 133/67
[2021-01-20 08:55] VITALS: BP 133/67
[2021-01-20] MEDS: BUMETANIDE 1 MG TAB PO SCH (09:05)
[2021-01-20] MEDS: TAMSULOSIN HCL 0.4 MG CAP PO SCH (09:06)
[2021-01-20] MEDS: CYANOCOBALAMIN 1,000 MCG TAB PO SCH (09:06)
[2021-01-20] MEDS: FINASTERIDE 5 MG TAB PO SCH (09:06)
[2021-01-20] MEDS: AMIODARONE HCL 200 MG TAB PO SCH (09:06)
[2021-01-20] MEDS: NON-FORMULARY MEDICATION (Mirabegron (Myrbetriq) 50 MG) PO SCH (09:11)
[2021-01-26] MEDS ORDERED: AMIODARONE HCL200 MG PO (15:21)
[2021-01-26] MEDS ORDERED: ELIQUIS5 MG PO (15:21)
[2021-01-26] MEDS ORDERED: METOPROLOL TART50 MG PO (15:21)
[2021-01-28] MEDS ORDERED: CALTRATE 600 +1 EAC1 PO (07:54)
[2021-01-28] MEDS ORDERED: FINASTERIDE5 MG PO (07:54)
== END 2021-01-20 11:35 | disposition home or self-care (01) | DRG 309 ==
LOC: ER 11:54 → ERHOLD 14:06 → MED/SURG3 16:43
PROVIDERS: ADMIT Internal Medicine; ATTEND Internal Medicine
DX: I48.0 Paroxysmal atrial fibrillation (principal); N39.0 Urinary tract infection, site not specified; I42.8 Other cardiomyopathies; I10 Essential (primary) hypertension; I47.1 Supraventricular tachycardia; I49.8 Other specified cardiac arrhythmias; E78.5 Hyperlipidemia, unspecified; N40.1 Benign prostatic hyperplasia with lower urinary tract symptoms; N39.41 Urge incontinence; C61 Malignant neoplasm of prostate; R39.14 Feeling of incomplete bladder emptying; R35.1 Nocturia; N32.81 Overactive bladder; D64.9 Anemia, unspecified; E03.9 Hypothyroidism, unspecified; Z87.442 Personal history of urinary calculi; Z90.49 Acquired absence of other specified parts of digestive tract; Z95.5 Presence of coronary angioplasty implant and graft; Z88.2 Allergy status to sulfonamides; Z88.8 Allergy status to other drugs, medicaments and biological substances; Z82.49 Family history of ischemic heart disease and other diseases of the circulatory system; Z96.651 Presence of right artificial knee joint; Z20.822 Contact with and (suspected) exposure to COVID-19
CPT/HCPCS: 36415; 71045; 80053; 80061; 81001; 82550; 82553; 82948; 83735; 83880; 84443; 84484; 85025; 85610; 85730; 87086; 93005; 93306; 96361; 99284; J1160; J7040; U0002

== ENCOUNTER → 2021-01-28 | Day surgery (SDC) | payer MEDICARE ==
[2021-01-14 11:17] LABS: BASOPHILS % 0.1 % (0.0-1.0); HEMOGLOBIN 15.2 g/dL (14.0-18.0); LYMPHOCYTES # (AUTO) 0.8 (1.0-3.2); MEAN CORPUSCULAR HEMOGLOBIN 30.9 pg (28-32); MEAN CORPUSCULAR HGB CONC 32.3 g/dL (31-35); MEAN CORPUSCULAR VOLUME 95.5 fL (81-99); MONOCYTES # (AUTO) 0.7 (0.2-0.8); MONOCYTES % 4.2 % (4.4-11.3); NEUTROPHILS # (AUTO) 14.7 (2.1-6.9); NEUTROPHILS % 90.3 % (38.7-80.0); PLATELET COUNT 159 x10e3/uL (140-360); RED BLOOD COUNT 4.92 x10e6/uL (4.3-5.7); RED CELL DISTRIBUTION WIDTH 13.4 % (11.7-14.4)
[2021-01-14 11:30] LABS: ANION GAP 15.6 mmol/L (8-16); CREATININE, SERUM 1.89 mg/dL (0.72-1.25); POTASSIUM 4.6 mmol/L (3.5-5.1)
[~2021-01-28] MED LIST changes: +BELLADONNA/OPIUM 30 MG SUPP RC ONE; +BOTULINUM TOXIN TYPE A 100 UNIT VIAL IM ONE; +CALTRATE 600 +1 EAC1 PO; +ELIQUIS5 MG PO; +FINASTERIDE5 MG PO; +GENTAMICIN 80MG/NS 100 ML 200 ML IV ONE; +IOPAMIDOL 300MG/ML 50ML INFUS..BTL IV ONE; +METOPROLOL TART50 MG PO
[2021-01-28 12:07] VITALS: BP 128/61
== END | disposition home or self-care (01) ==
LOC: OR 07:10
PROVIDERS: ATTEND Urology
DX: N40.1 Benign prostatic hyperplasia with lower urinary tract symptoms (principal); N39.41 Urge incontinence; C61 Malignant neoplasm of prostate; R39.14 Feeling of incomplete bladder emptying; R35.1 Nocturia; R39.12 Poor urinary stream; E29.1 Testicular hypofunction; N32.81 Overactive bladder; N39.0 Urinary tract infection, site not specified; E66.9 Obesity, unspecified; N18.9 Chronic kidney disease, unspecified; I86.1 Scrotal varices; Z68.26 Body mass index [BMI] 26.0-26.9, adult; Z88.2 Allergy status to sulfonamides; Z88.8 Allergy status to other drugs, medicaments and biological substances; Z01.810 Encounter for preprocedural cardiovascular examination; Z01.812 Encounter for preprocedural laboratory examination; Z01.818 Encounter for other preprocedural examination; Z20.822 Contact with and (suspected) exposure to COVID-19
CPT/HCPCS: 36415; 52005; 52287; 74420; 80048; 85025; 93005 ×2; C1758; J0587; J1580; Q9967; U0002

== ENCOUNTER 2022-05-04 16:20 | Emergency (ER) | payer MEDICARE ==
[~2022-05-04] VITALS: Ht 188 cm; Wt 88.5 kg
[~2022-05-04 16:20] MED LIST changes: -BELLADONNA/OPIUM 30 MG SUPP RC ONE; -BOTULINUM TOXIN TYPE A 100 UNIT VIAL IM ONE; -GENTAMICIN 80MG/NS 100 ML 200 ML IV ONE; -IOPAMIDOL 300MG/ML 50ML INFUS..BTL IV ONE
[2022-05-04 17:09] LABS: BASOPHILS % 0.2 % (0.0-1.0); EOSINOPHILS % 0.5 % (0.0-6.0); HEMATOCRIT 43.7 % (38.2-49.6); HEMOGLOBIN 13.7 g/dL (14.0-18.0); LYMPHOCYTES # (AUTO) 1.1 (1.0-3.2); LYMPHOCYTES % 24.5 % (18.0-39.1); MEAN CORPUSCULAR HEMOGLOBIN 30.9 pg (28-32); MEAN CORPUSCULAR HGB CONC 31.4 g/dL (31-35); MEAN CORPUSCULAR VOLUME 98.6 fL (81-99); MONOCYTES # (AUTO) 0.5 (0.2-0.8); MONOCYTES % 10.9 % (4.4-11.3); NEUTROPHILS # (AUTO) 2.8 (2.1-6.9); NEUTROPHILS % 63.7 % (38.7-80.0); PLATELET COUNT 103 x10e3/uL (140-360); RED BLOOD COUNT 4.43 x10e6/uL (4.3-5.7); RED CELL DISTRIBUTION WIDTH 12.9 % (11.7-14.4)
[2022-05-04 17:18] LABS: INR 0.96; PROTHROMBIN TIME 13.7 seconds (11.9-14.5)
[2022-05-04 17:19] LABS: PARTIAL THROMBOPLASTIN TIME 37.7 seconds (23.8-35.5)
[2022-05-04 17:24] LABS: ALBUMIN 4.3 g/dL (3.5-5.0); ALBUMIN/GLOBULIN RATIO 1.4 (0.8-2.0); ANION GAP 17.5 mmol/L (8-16); CALCIUM 9.8 mg/dL (8.4-10.2); CREATININE, SERUM 2.12 mg/dL (0.72-1.25); POTASSIUM 4.5 mmol/L (3.5-5.1)
[2022-05-04 17:29] LABS: CREATINE KINASE MB 1.4 ng/mL (0-5.0)
[2022-05-04] MEDS ORDERED: ASPIRIN 325 MG TAB PO STA (17:39)
[2022-05-04] MEDS ORDERED: IOPAMIDOL 370 MG/ML 100 ML INFUS..BTL INJ ONE (19:10)
[2022-05-04] MEDS ORDERED: SODIUM CHLORIDE 0.9% 100 ML ONE (19:10)
== END 2022-05-04 19:25 | disposition other institution (70) ==
LOC: ER 16:36
DX: G81.94 Hemiplegia, unspecified affecting left nondominant side (principal); I63.9 Cerebral infarction, unspecified; N28.9 Disorder of kidney and ureter, unspecified; R94.31 Abnormal electrocardiogram [ECG] [EKG]
CPT/HCPCS: 36415; 70450; 70496; 70498; 71045; 80053; 82550; 82553; 84484; 85025; 85610; 85730; 93005; 99284; J7050; Q9967; U0002